=== PATIENT | male | born 1945 | race Caucasian/White ===

== ENCOUNTER → 2017-10-22 20:34 | Outpatient (CLI) | payer MEDICARE, OTHER, SELFPAY | PROVIDERS: Family Provider Family Medicine; PCP Family Medicine; Visit Provider Family Medicine | DX: G47.10 Hypersomnia, unspecified (principal); I10 Essential (primary) hypertension | CPT/HCPCS: 95810 ==

== ENCOUNTER → 2017-11-01 20:00 | Outpatient (CLI) | payer MEDICARE, OTHER, SELFPAY | PROVIDERS: Family Provider Family Medicine; PCP Family Medicine; Visit Provider Family Medicine | DX: G47.33 Obstructive sleep apnea (adult) (pediatric) (principal) | CPT/HCPCS: 95811 ==

== ENCOUNTER → 2018-04-14 09:47 | Outpatient (CLI) | payer MEDICARE, OTHER, SELFPAY ==
--- NOTE | 2018-04-14 09:48 | ECHOD_ITS ---
Reason For Study: NSTEMI, CAD, Valve eval. Procedure This was a 2D Doppler, Color Flow transthoracic echocardiogram. Exam performed in department. Left Ventricle Normal size and thickness. The estimated ejection fraction is 65 %. Normal diastology for age. No regional wall motion abnormalities noted. Right Ventricle Normal size and thickness. Normal systolic function. Atria Normal left atrium. Normal right atrium. Normal atrial septum. Mitral Valve The mitral valve is structurally normal. No prolapse or stenosis seen. Tricuspid Valve Normal tricuspid valve. Trivial tricuspid valve insufficiency. Right ventricular systolic pressure estimated to be 15 mmHg. Aortic Valve Trisinus/trileaflet aortic valve. Normal aortic valve. Pulmonic Valve Normal pulmonic valve. Great Vessels Normal aortic root. Normal arch. Normal inferior vena cava. Inferior vena cava collapse with sniff. Pericardium/Pleural No pericardial effusion. MMode/2D Measurements & Calculations LVIDd: 4.8 cm IVSd: 0.95 cm Ao root diam: 3.9 cm LVIDs: 3.3 cm LVPWd: 1.2 cm LA dimension: 3.9 cm RVDd: 2.8 cm FS: 30.5 % LAV(MOD-bp): 56.9 ml LA A4 area: 19.3 cm2 RA A4 area: 15.2 cm2 LAV(MOD-bp) Indexed: 27.9 ml/m2 LAV(MOD-sp2): 56.4 ml LAV(MOD-sp4): 55.2 ml Doppler Measurements & Calculations MV E max john: 64.0 cm/sec Lat Peak E' John: 8.7 cm/sec Med Peak E' John: 7.4 cm/sec MV A max john: 79.0 cm/sec E/E' lat: 7.3 E/E' med: 8.6 MV E/A: 0.81 Ao V2 max: 143.3 cm/sec LV V1 max: 92.3 cm/sec PA V2 max: 106.9 cm/sec Ao max P.2 mmHg LV V1 max P.4 mmHg TR max john: 155.7 cm/sec TR max P.7 mmHg Interpretation Summary The estimated ejection fraction is 65 %. Trivial tricuspid valve insufficiency. Right ventricular systolic pressure estimated to be 15 mmHg. Compared to echo report dated 04/19/2017, LV function has improved from 55% to 65%. Ordering Physician: John Umaña Referring Physician: Raj Chow Performed By: Ruth Kay RDCS, RVT
== END ==
PROVIDERS: Family Provider Family Medicine; PCP Family Medicine; Visit Provider Internal Medicine Cardiovascular Disease
DX: I21.4 Non-ST elevation (NSTEMI) myocardial infarction (principal)
CPT/HCPCS: 93306

== ENCOUNTER → 2018-05-27 12:49 | Outpatient (CLI) | payer MEDICARE, OTHER, SELFPAY ==
--- NOTE | 2018-05-27 12:52 | RAD_ITS ---
STUDY: X-RAY - LUMBAR SPINE REASON FOR EXAM: Male, 72 years old. Low back pain, right leg pain x3-4 days TECHNIQUE: 5 view(s) of the lumbar spine were obtained. COMPARISON: None FINDINGS: Normal lumbar lordosis. There is no substantial scoliosis. There is a grade 1 anterolisthesis of L5 relative to S1 with a bilateral L5 spondylolysis. There is multilevel endplate spondylosis of the lumbar vertebrae. There is narrowing of the T12-L1 and L5-S1 disc spaces. The soft tissue structures are unremarkable. RAD/L/S Spine Min 4 Views IMPRESSION: Grade 1 anterolisthesis of L5 relative to S1 with bilateral L5 spondylolysis. Multilevel endplate spondylosis of the lumbar vertebrae. Narrowing of the T12-L1 and L5-S1 disc spaces. Electronically Signed: Dat Khan MD at 17:50 EDT , Service support ,
== END ==
PROVIDERS: Family Provider Family Medicine; PCP Family Medicine; Visit Provider Family Medicine
DX: M47.897 Other spondylosis, lumbosacral region (principal); M48.07 Spinal stenosis, lumbosacral region
CPT/HCPCS: 72110

== ENCOUNTER → 2018-05-28 08:11 | Outpatient (CLI) | payer MEDICARE, OTHER, SELFPAY | PROVIDERS: Family Provider Family Medicine; PCP Family Medicine; Visit Provider Family Medicine | DX: E11.9 Type 2 diabetes mellitus without complications (principal); E03.9 Hypothyroidism, unspecified; Z12.5 Encounter for screening for malignant neoplasm of prostate; I10 Essential (primary) hypertension; N40.1 Benign prostatic hyperplasia with lower urinary tract symptoms; N13.8 Other obstructive and reflux uropathy; M25.50 Pain in unspecified joint ==

== ENCOUNTER → 2018-06-10 08:14 | Outpatient (CLI) | payer MEDICARE, OTHER, SELFPAY ==
[2018-06-10 11:50] LABS: Absolute Neutrophil Count 2.8 X10^3/uL (2.0-7.7); Basophil# 0.04 X10^3/uL; Basophil% 0.9 % (0-1); Eosinophils% 4.3 % (0-5); Hematocrit 44.8 % (40-54); Hemoglobin 14.2 g/dl (13.0-16.5); Lymphocyte % 25.8 % (19-41); Mean Corp Hgb Conc 31.7 g/gl (32-36); Mean Corpuscular Hgb 28.6 pg (27.0-32.0); Mean Corpuscular Volume 90.3 fL (80-94); Mean Platelet Vol. 11.1 fl (6.2-12.0); Monocyte# 0.36 X10^3/uL; Monocyte% 7.7 % (0-10); Neutrophil # 2.83 X10^3/uL (2.7-7.7); Neutrophil % 60.9 % (47-70); Platelet Count 178 K/mm3 (150-450); RBC Distribution Width CV 14.6 % (11.6-14.6); RBC Distribution Width SD 47.8 fl (35.1-43.9); Red Blood Count 4.96 M/mm3 (4.6-6.2); White Blood Count 4.7 K/mm3 (4.4-11.0)
[2018-06-10 11:55] LABS: POSITIVE COUNT NO; POSITIVE DIFFERENTIAL NO; POSITIVE MORPHOLOGY NO
[2018-06-10 12:03] LABS: Microalbumin,Random Urine 25.3 mg/L (NO RANGE EST.); Microalbumin:Creatinine Ratio 15.6 mg/g CRE (<30 mg/g CRE)
[2018-06-10 12:04] LABS: Erythrocyte Sedimentation Rate 7 mm/hr (0-20)
[2018-06-10 12:13] LABS: Hemoglobin A1c 6.7 % (4.2-6.3)
[2018-06-10 12:17] LABS: ALB/GLOB Ratio 1.1 RATIO (0.9-2.4); AST(SGOT) 16 U/L (15-37); Alanine Aminotransfer ALT/SGPT 24 U/L (16-61); Albumin, Serum 3.9 g/dL (3.2-5.0); Alkaline Phosphatase 53 U/L (45-117); BUN 19 mg/dL (7-18); BUN/Creat Ratio 15.7 RATIO (10-20); Calcium,Total 8.8 mg/dL (8.5-10.1); Cholesterol 131 mg/dL (200); Creatinine, Serum 1.21 mg/dL (0.70-1.30); EST Glomerular Filtration Rate 63 mL/min (>60); Est Glom Filt Rate - Afr Amer 76 mL/min (>60); Globulin 3.4 g/dL (2.2-4.2); Glucose 90 mg/dL (74-106); Protein, Total 7.3 g/dL (6.4-8.2); Triglycerides 89 mg/dL
[2018-06-10 12:18] LABS: Anion Gap 7 (5-15); CRP < 2.90 mg/L (0.0-3.0); Chloride 105 mmol/L (98-107); High Density Lipoprotein 65 mg/dL; PSA,Total - Annual Screen 3.14 ng/mL (0.00-4.00); Potassium 4.1 mmol/L (3.5-5.1); Rheumatoid Factor < 10.0 IU/mL (<15); Sodium Level 141 mmol/L (136-145); Thyroid Stim Hormone (TSH) 2.18 uIU/mL (0.358-3.74); Very Low Density Lipoprotein 18 mg/dL (5-40)
[2018-06-13 08:17] LABS: CCP IgG Antibodies 6 units (0-19)
== END ==
PROVIDERS: Family Provider Family Medicine; PCP Family Medicine; Visit Provider Family Medicine
DX: E11.9 Type 2 diabetes mellitus without complications (principal); E03.9 Hypothyroidism, unspecified; Z12.5 Encounter for screening for malignant neoplasm of prostate; I10 Essential (primary) hypertension; N40.1 Benign prostatic hyperplasia with lower urinary tract symptoms; N13.8 Other obstructive and reflux uropathy
CPT/HCPCS: 36415; 80053; 80061; 82043; 82570; 83036; 84153; 84443; 85025; 85652; 86140; 86200; 86431; G0103

== ENCOUNTER → 2018-07-22 10:00 | Outpatient (CLI) | payer MEDICARE, OTHER, SELFPAY ==
--- NOTE | 2018-07-22 10:06 | RAD_ITS ---
STUDY: X-RAY - PELVIS REASON FOR EXAM: Male, 72 years old. Osteoarthritis of the hip. Right hip more painful than the left. TECHNIQUE: One view of the pelvis was obtained. COMPARISON: None. FINDINGS: There is a non-specific bowel gas pattern. Probable phlebolith left hemipelvis. Normal bilateral iliac wings, sacroiliac joints and visualized sacrum. Normal visualized bilateral superior and inferior pubic rami. Normal pubic symphysis. Normal ischial tuberosities. Small osteophyte right femoral neck. Normal right acetabulum. Normal right hip joint. Normal visualized left femoral head. Normal left acetabulum. Mild left superior joint space narrowing. RAD/Pelvis 1 or 2 Views IMPRESSION: Mild degenerative changes of both hips. Electronically Signed: Houston Valle MD at 6:02 EST , Service support ,
[2018-07-22 12:17] LABS: Absolute Lymphocyte Count 0.69 X10^3/ul (0.83-4.51); Absolute Neutrophil Count 3.1 X10^3/uL (2.0-7.7); Basophil# 0.02 X10^3/uL; Basophil% 0.5 % (0-1); Eosinophils% 2.3 % (0-5); Hematocrit 42.7 % (40-54); Hemoglobin 13.5 g/dl (13.0-16.5); Lymphocyte # 0.69 X10^3/ul (4.0); Lymphocyte % 15.7 % (19-41); Mean Corp Hgb Conc 31.6 g/gl (32-36); Mean Corpuscular Hgb 28.8 pg (27.0-32.0); Mean Corpuscular Volume 91.2 fL (80-94); Mean Platelet Vol. 10.8 fl (6.2-12.0); Monocyte# 0.44 X10^3/uL; Neutrophil # 3.14 X10^3/uL (2.7-7.7); Neutrophil % 71.3 % (47-70); POSITIVE COUNT NO; POSITIVE DIFFERENTIAL NO; POSITIVE MORPHOLOGY NO; Platelet Count 186 K/mm3 (150-450); RBC Distribution Width CV 14.5 % (11.6-14.6); RBC Distribution Width SD 48.2 fl (35.1-43.9); Red Blood Count 4.68 M/mm3 (4.6-6.2); White Blood Count 4.4 K/mm3 (4.4-11.0)
[2018-07-22 12:40] LABS: ALB/GLOB Ratio 1.1 RATIO (0.9-2.4); AST(SGOT) 15 U/L (15-37); Alanine Aminotransfer ALT/SGPT 21 U/L (16-61); Alkaline Phosphatase 60 U/L (45-117); Anion Gap 7 (5-15); BUN 19 mg/dL (7-18); BUN/Creat Ratio 17.6 RATIO (10-20); Calcium,Total 8.6 mg/dL (8.5-10.1); Chloride 105 mmol/L (98-107); Creatinine, Serum 1.08 mg/dL (0.70-1.30); EST Glomerular Filtration Rate 72 mL/min (>60); Est Glom Filt Rate - Afr Amer 87 mL/min (>60); Globulin 3.5 g/dL (2.2-4.2); Glucose 112 mg/dL (74-106); Protein, Total 7.5 g/dL (6.4-8.2); Sodium Level 139 mmol/L (136-145)
[2018-07-29 09:38] LABS: CCP IgG Antibodies 5 units (0-19); HLA B27 Negative (.)
== END ==
PROVIDERS: Family Provider Family Medicine; PCP Family Medicine; Referring Provider Internal Medicine Rheumatology; Visit Provider Internal Medicine Rheumatology
DX: M16.0 Bilateral primary osteoarthritis of hip (principal); M47.897 Other spondylosis, lumbosacral region
CPT/HCPCS: 36415; 72170; 80053; 81374; 85025; 86200

== ENCOUNTER 2019-03-13 12:36 | Emergency (ER) | payer MEDICARE, OTHER, SELFPAY ==
[2018-10-15 11:11] VITALS: BMI 27.8
[2019-03-13 12:37] VITALS: BP 130/84; PULSE 88; RESP 15; TEMP 36.7; O2SAT 96; BMI 28.2
--- NOTE | 2019-03-13 12:57 | ED.DCSUM_ITS ---
- ER Visit Summary Date of Service: 03/13/19 Chief Complaint: Dark urine History of Present Illness: The patient is a 73 M presents to the emergency department with intermittent dark urine. Patient states yesterday, he urinated 3 times in his urine was tea colored. He states that this morning, it seemed to have improved. He denies any pain. He denies any fevers or chills. The patient is on Brilinta for history of coronary vascular disease. He is also on Flomax. He denies any history of bladder cancer or other malignancy. He is otherwise been in his normal state of health. Physical Examination: Vital signs reviewed General: Well-nourished, well-developed Head: Normocephalic, atraumatic Eyes: Pupils equal and reactive, extraocular muscles intact Neck, supple, no lymphadenopathy Heart: Regular rate and rhythm Respiratory: No distress, clear bilaterally Abdomen: Soft, nontender, nondistended, no peritoneal signs Back: Nontender Extremities: Nontender, no edema, no cords Skin: Normal color no rash Neuro: Alert and oriented, no focal or lateralizing deficits Test Results: [] Emergency Department Course and Treatment: Urine was obtained. There was some red blood cells and bacteria. I do suspect this may be a hemorrhagic cystitis. Culture was added. The patient will be treated with antibiotics. Will begin outpatient urology referral as he may end up needing cystoscopy. He is not ill-appearing. I do feel it is safe for outpatient therapy. He has no evidence of urinary obstruction. He is comfortable with this plan of care. Treatment Plan: [] Disposition: Discharge Impression: 1. Hemorrhagic cystitis This note was generated with [employer] dictation software. It may contain incorrect words, spelling, and punctuation that were not noted in review of the chart prior to signing ED Disposition - Plan for ED Patient: Disposition: Home or Assisted Living Instructions: Bladder Infection, Male (Adult) Prescriptions: Ciprofloxacin [Cipro] 500 mg PO BID #14 tab Prescription Printed Referrals: Joseph Mora MD [STAFF PHYSICIAN] -
[2019-03-13 13:19] LABS: Mucous, Urine 0 SEEN /hpf (<or=2+)
[2019-03-13 13:22] LABS: Color, Urine Yellow (Yellow); Glucose, Dipstick Normal (Normal); Ketone-Dipstick Negative (Negative); Leukocyte Esterase-Dipstick 25 /ul (Negative); Nitrite-Dipstick Negative (Negative); Occult Blood-Urine 250 /ul (Negative); Protein-Dipstick 30 mg/dl (Negative); Specific Gravity, Urine 1.015 (1.002-1.030); Urine Bilirubin Dipstick Negative (Negative); Urine Clarity Sl. Cloudy (Clear); Urine Urobilinogen Normal (Normal)
[2019-03-13 13:30] LABS: Bacteria 1+ /hpf (None Seen); Red Blood Cells-Urine 25-50 SEEN /hpf (0-5); Squamous Epithelial Cells - UA 0-5 SEEN /hpf (0-5); White Blood Cells 0-5 SEEN /hpf (0-5)
[2019-03-13] MEDS: Ciprofloxacin 500 MG Tablet PO (13:51)
== END 2019-03-13 13:54 | disposition home or self-care (01) ==
LOC: ED 12:59
PROVIDERS: Emergency Provider Emergency Medicine; Family Provider Family Medicine; PCP Family Medicine
DX: N30.91 Cystitis, unspecified with hematuria (principal); I25.10 Atherosclerotic heart disease of native coronary artery without angina pectoris; E11.9 Type 2 diabetes mellitus without complications; E07.9 Disorder of thyroid, unspecified; Z79.84 Long term (current) use of oral hypoglycemic drugs; Z79.82 Long term (current) use of aspirin; Z79.899 Other long term (current) drug therapy
CPT/HCPCS: 81001; 87086; 99283

== ENCOUNTER 2019-03-22 17:49 | Emergency (ER) | payer MEDICARE, OTHER, SELFPAY ==
[2019-03-22 17:50] VITALS: BP 129/73; PULSE 91; RESP 16; TEMP 36.9; O2SAT 93; BMI 28.0
--- NOTE | 2019-03-22 18:44 | CT_ITS ---
STUDY: CT ABDOMEN AND PELVIS WITHOUT CONTRAST REASON FOR EXAM: Male, 73 years old. Bladder infection RADIATION DOSAGE (If Supplied By Facility): CTDIvol = ( 13.67 ) mGy, DLP = ( 677.27 ) mGycm TECHNIQUE: Transaxial images were obtained from the dome of the diaphragm to the symphysis pubis without oral contrast, and without intravenous contrast. Sagittal and coronal images were reconstructed. Individualized dose optimization techniques were used for this CT. COMPARISON: None. FINDINGS: This is a limited non-IV and nonoral contrast study. The visualized lung bases are unremarkable. The visualized portions of the heart are within normal limits. Normal liver. Normal gallbladder and extrahepatic biliary system. Normal spleen. Normal pancreas. Normal bilateral adrenal glands. There is moderate left hydronephrosis and left hydroureter. There is a 4 mm calculus within the mid left ureter at approximately L4 level. There is a 3 mm right renal calculus. Normal visualized stomach. There is some mild distended left upper quadrant bowel loops with some fecalization. There is no definite transition point. There are nondistended distal small bowel loops. There are scattered colonic diverticula. Moderate colonic fecal load. There is CT evidence for acute diverticulitis Appendix is upper limits of normal size maximum diameter 6 mm. There are no adjacent inflammatory changes. Normal abdominal aorta. Normal inferior vena cava. Normal retroperitoneum. The bladder is decompressed.. There is significant prostate enlargement. Normal abdominal wall. There is bilateral spondylolysis at L5 with grade 1, 7 mm posterior listhesis sacrum on L5. There is mild posterior bulging annulus with significant bilateral foraminal stenosis. Multilevel Schmorl's nodes and lumbar spine. CT/Abdomen/Pelvis without Cont IMPRESSION: Limited non-IV nonoral contrast study moderate left hydronephrosis and left hydroureter. There is an obstructing or partially obstructing 4 mm calculus within the mid left ureter at approximately the L4 level. Right renal nephrolithiasis Mild distended small bowel loops likely ileus Moderate colonic fecal load, scattered colonic diverticulosis, no diverticulitis Appendix is at the upper limits of normal size at 6 mm, there are no adjacent inflammatory changes to suggest appendicitis Significant prostate enlargement, prosthetic hypertrophy, prostate malignancy cannot be excluded and should be correlated with PSA level and prostate ultrasound Decompressed bladder Bilateral spondylolysis, spondylosis changes at L5-S1 grade 1 posterior listhesis L5 on S1 Electronically Signed: Odilon Garvey, at 19:52 EDT Tel , Service support ,
[2019-03-22 19:50] LABS: Bacteria 0 SEEN /hpf (None Seen); Mucous, Urine 0 SEEN /hpf (<or=2+); Squamous Epithelial Cells - UA 0 SEEN /hpf (0-5); White Blood Cells 0 SEEN /hpf (0-5)
[2019-03-22 19:53] LABS: Color, Urine Yellow (Yellow); Glucose, Dipstick Normal (Normal); Ketone-Dipstick 5 mg/dl (Negative); Leukocyte Esterase-Dipstick 25 /ul (Negative); Nitrite-Dipstick Negative (Negative); Occult Blood-Urine 250 /ul (Negative); Protein-Dipstick 100 mg/dl (Negative); Specific Gravity, Urine 1.025 (1.002-1.030); Urine Clarity Cloudy (Clear); Urine Urobilinogen 1 mg/dl (Normal)
[2019-03-22 19:56] LABS: Urine Bilirubin Dipstick 1 mg/dL (Negative)
[2019-03-22 19:59] LABS: Calcium Oxalate Crystals Ur 1+ /hpf (<or=2+)
[2019-03-22 20:04] LABS: Red Blood Cells-Urine > 100 SEEN /hpf (0-5)
[2019-03-22 20:08] LABS: Amorphous Sediment 1+
--- NOTE | 2019-03-22 20:25 | ED.VISSUMM ---
- ER Visit Summary Date of Service: 03/22/19 Chief Complaint: [Pelvic pain] History of Present Illness: The patient is a 73 M [as the emergency department with lower pelvic pain that started earlier today. Patient gives me a history of recently be seen in the emergency department 9 days ago and diagnosed with a urinary tract infection at that time he had some blood in his urine urinary frequency. Patient states that he was started on ciprofloxacin and things seem to clear up and was doing relatively well until today. Patient today feels like he has to urinate frequently but is only getting small amounts of urine out at a time. Describes some pressure in his lower pelvic region that he rates as a 5 out of 10. Denies any fevers. Patient has history of coronary artery disease, diabetes, hypertension, high cholesterol, BPH, and history of prior IN. She is scheduled to see urologist on March 30.] Physical Examination: [HEENT-PERRLA, EOMI. Cranial nerves II through XII grossly intact. TMs clear. Mucous membranes moist. No adenopathy. Cardiovascular-regular rate and rhythm without murmur or ectopy Lungs-clear to auscultation, chest wall stable without crepitus or subcu emphysema Abdomen-normoactive bowel sounds, soft area patient has mild diffuse suprapubic test and palpation. There is no rebound, rigidity, cranial signs. She has mild CVA tenderness on the left. Extremities-intact ?4, normal range of motion, normal pulses, atraumatic] Test Results: [Scan performed only showed about 40 cc of urine. Urinalysis showed greater than 100 RBCs but no signs of infection. CT scan of the abdomen and pelvis without contrast showed a 4 mm calcification in the left ureter about the L4 level with moderate hydro-ureter and hydro-nephrosis.] Emergency Department Course and Treatment: [Patient did not waiting for pain in the emergency department. Case was discussed with urology asked that patient follow-up with his office by calling tomorrow for an earlier appointment.] Treatment Plan: [He will be given a prescription for naproxen and [place] for pain. Patient will be given urine strainers.] I ordered a BMP as patient has not had labs since July 2018. Disposition: [Discharged home in stable condition.] Impression: [Kidney stone with colic] This note was generated with [employer] software. It may contain incorrect words, spelling, and punctuation that were not noted in review of the chart prior to signing ED Disposition - Plan for ED Patient: Referrals: Raj Chow DO [Primary Care Provider] -
--- NOTE | 2019-03-22 20:29 | ED.DEP ---
ED Disposition - Plan for ED Patient: Instructions: KIDNEY STONE w/ Colic Prescriptions: Naproxen [Naprosyn] 500 mg PO BID PRN #20 tab Prescription Printed Hydrocodone Bitart/Apap 5-325 [[place] 5MG-325MG] 1 tab PO Q4H PRN PRN 2 Days #15 tab PRN Reason: Pain Prescription Printed Referrals: Raj Chow DO [Primary Care Provider] -
[2019-03-22 21:07] LABS: Anion Gap 5 (5-15); BUN 25 mg/dL (7-18); BUN/Creat Ratio 18.7 RATIO (10-20); Calcium,Total 8.7 mg/dL (8.5-10.1); Chloride 105 mmol/L (98-107); Creatinine, Serum 1.34 mg/dL (0.70-1.30); EST Glomerular Filtration Rate 56 mL/min (>60); Est Glom Filt Rate - Afr Amer 67 mL/min (>60); Estimated Creatinine Clearance 49.83 ml/min; Glucose 95 mg/dL (74-106); Potassium 3.8 mmol/L (3.5-5.1); Sodium Level 136 mmol/L (136-145)
[2019-03-22] MEDS: HYDROcodone Bitartrate/Apap 5/325 Tablet PO (21:07)
== END 2019-03-22 21:13 | disposition home or self-care (01) ==
LOC: ED 19:11
PROVIDERS: Emergency Provider Emergency Medicine; Family Provider Family Medicine; PCP Family Medicine
DX: N13.2 Hydronephrosis with renal and ureteral calculous obstruction (principal); N34.2 Other urethritis; I25.10 Atherosclerotic heart disease of native coronary artery without angina pectoris; I25.2 Old myocardial infarction; I10 Essential (primary) hypertension; E11.9 Type 2 diabetes mellitus without complications; E78.00 Pure hypercholesterolemia, unspecified; N40.0 Benign prostatic hyperplasia without lower urinary tract symptoms; Z79.82 Long term (current) use of aspirin; Z79.84 Long term (current) use of oral hypoglycemic drugs; Z79.899 Other long term (current) drug therapy
CPT/HCPCS: 74176; 80048; 81001; 99283

== ENCOUNTER → 2019-03-30 | Outpatient (CLI) | payer MEDICARE, OTHER, SELFPAY ==
[2019-03-22 17:50] VITALS: BMI 28.0
--- NOTE | 2019-03-30 12:20 | RAD_ITS ---
STUDY: X-RAY - ABDOMEN/PELVIS REASON FOR EXAM: Male, 73 years old. History of recent kidney stone TECHNIQUE: Two AP supine views of the abdomen and pelvis. COMPARISON: 03/[address] scan abdomen and pelvis, July 22, 2018 FINDINGS: Normal visualized lung bases. There is a moderate amount of colonic fecal material. There is no demonstrated free abdominal air. The liver spleen and kidneys are at least partially obscured. There is a stable phlebolith in the left side of the pelvis. The stone that was seen within the left ureter is not visualized on this study allowing for the overlying bowel gas. There is degenerative change of the lumbar spine and both hip joints. RAD/Abdomen Single View IMPRESSION: The stone that was seen in the left ureter on prior study measuring 3.2 mm is not visualized on this study recommend correlation with renal colic. This may have passed however there could be nonvisualization due to overlying bowel gas. Stable phlebolith within the left side of the pelvis. Electronically Signed: Leticia Gomez MD at 22:47 EDT Tel , Service support ,
== END | disposition home or self-care (01) ==
LOC: RAD 12:11
PROVIDERS: Family Provider Family Medicine; PCP Family Medicine; Referring Provider Urology; Visit Provider Urology
DX: N20.1 Calculus of ureter (principal)
CPT/HCPCS: 74018

== ENCOUNTER → 2019-05-26 09:24 | Outpatient (CLI) | payer MEDICARE, OTHER, SELFPAY ==
[2019-05-04 14:43] VITALS: BMI 27.4
--- NOTE | 2019-05-26 09:26 | STEWCON_ITS ---
Reason For Study: CAD/ASHD Stress Results Protocol: Stress Echocardiogram Maximum Predicted HR: 148 bpm Target HR: 126 bpm % Maximum Predicted HR: 95 % DurationHeart Rate Stage (mm:ss) (bpm) BP Comment BASELINE 82 132/743 CC DILUTED DEFINITY USED ZAHRA PROTOCOL- STAGE 1 3:00 100 130/70NO SX ZAHRA PROTOCOL- STAGE 2 3:00 121 154/74NO SX ZAHRA PROTOCOL- STAGE 3 1:00 141 / FATIGUE, NO CP RECOVERY 94 120/70 Stress Duration: 7:00 mm:ss Maximum Stress HR: 141 bpm Baseline Echocardiogram Findings The estimated ejection fraction is 65 %. Stress Echo Wall motion Data Resting WM Intermediate WM Stress WM Resting Wall Motion Wall Motion Stress No regional wall motion No regional wall motion abnormalities noted. abnormalities noted. EKG Data The baseline ECG displays normal sinus rhythm. The patient exercised according to the regular Zahra protocol for a total duration of 7:00. The maximum heart rate attained was 141 beats per minute. This was 95% of maximum predicted heart rate. The patient exercised into stage 3 of the Zahra protocol. No clinical angina was noted. No arrhythmias noted. Interpretation Summary The estimated ejection fraction is 65 %. Normal, adequate, treadmill echocardiogram. Negative for ischemia by EKG and echocardiographic criteria. No anginal symptoms noted. No arrhythmias noted. Appropriate blood pressure response to exercise. Test terminated due to the attainment of target heart rate and fatigue. Average exercise capacity for age. Final LVEF is 75%. Decreased sensitivity due to poor echo windows requiring Definity agent. No complications. The study was technically difficult. Contrast injection was performed. Ordering Physician: John Umaña MD Referring Physician: John Umaña Performed By: Nneka Josue, RDCS, RVT
== END ==
PROVIDERS: Family Provider Family Medicine; PCP Family Medicine; Referring Provider Internal Medicine Cardiovascular Disease; Visit Provider Internal Medicine Cardiovascular Disease
DX: I25.10 Atherosclerotic heart disease of native coronary artery without angina pectoris (principal); E78.5 Hyperlipidemia, unspecified; Z95.5 Presence of coronary angioplasty implant and graft
CPT/HCPCS: 93017; 93350; Q9957; A4216; C8928

== ENCOUNTER → 2019-06-08 10:35 | Outpatient (CLI) | payer MEDICARE, OTHER, SELFPAY ==
[2019-05-04 14:43] VITALS: BMI 27.4
[2019-06-08 12:25] LABS: Absolute Neutrophil Count 3.4 X10^3/uL (2.0-7.7); Basophil# 0.04 X10^3/uL; Basophil% 0.9 % (0-1); Eosinophil# 0.16 X10^3/uL; Eosinophils% 3.5 % (0-5); Hematocrit 40.2 % (40-54); Hemoglobin 12.7 g/dL (13.0-16.5); Lymphocyte % 13.3 % (19-41); Mean Corp Hgb Conc 31.6 g/dL (32-36); Mean Corpuscular Hgb 28.5 pg (27.0-32.0); Mean Corpuscular Volume 90.3 fL (80-94); Mean Platelet Vol. 10.5 fl (6.2-12.0); Monocyte# 0.34 X10^3/uL; Monocyte% 7.5 % (0-10); NRBC Flagged by Analyzer 0 % (0-5); Neutrophil # 3.36 X10^3/uL (2.7-7.7); Neutrophil % 74.4 % (47-70); POSITIVE DIFFERENTIAL YES; Platelet Count 185 K/mm3 (150-450); RBC Distribution Width CV 14.1 % (11.6-14.6); RBC Distribution Width SD 46.7 fl (35.1-43.9); Red Blood Count 4.45 M/mm3 (4.6-6.2); White Blood Count 4.5 K/mm3 (4.4-11.0)
[2019-06-08 12:26] LABS: Differential Indicated SCAN CRITERIA MET
[2019-06-08 12:38] LABS: AST(SGOT) 12 U/L (15-37); Alanine Aminotransfer ALT/SGPT 22 U/L (16-61); Albumin, Serum 3.7 g/dL (3.2-5.0); Alkaline Phosphatase 86 U/L (45-117); Anion Gap 5 (5-15); BUN 29 mg/dL (7-18); BUN/Creat Ratio 20.4 RATIO (10-20); Calcium,Total 8.9 mg/dL (8.5-10.1); Chloride 106 mmol/L (98-107); Creatinine, Serum 1.42 mg/dL (0.70-1.30); EST Glomerular Filtration Rate 52 mL/min (>60); Est Glom Filt Rate - Afr Amer 63 mL/min (>60); Globulin 3.6 g/dL (2.2-4.2); Glucose 195 mg/dL (74-106); Protein, Total 7.3 g/dL (6.4-8.2); Sodium Level 139 mmol/L (136-145)
[2019-06-08 12:49] LABS: Platelet Estimate ADEQUATE (ADEQ); Red Cell Morphology NORM C+C NORMAL (NORM C&C)
== END ==
PROVIDERS: Family Provider Family Medicine; PCP Family Medicine; Referring Provider Internal Medicine Rheumatology; Visit Provider Internal Medicine Rheumatology
DX: M16.0 Bilateral primary osteoarthritis of hip (principal); M47.897 Other spondylosis, lumbosacral region; I10 Essential (primary) hypertension; E11.9 Type 2 diabetes mellitus without complications; I25.10 Atherosclerotic heart disease of native coronary artery without angina pectoris; E03.9 Hypothyroidism, unspecified; E78.5 Hyperlipidemia, unspecified; N40.1 Benign prostatic hyperplasia with lower urinary tract symptoms
CPT/HCPCS: 36415; 80053; 85025

== ENCOUNTER → 2019-06-16 07:19 | Outpatient (CLI) | payer MEDICARE, OTHER, SELFPAY ==
[2019-05-04 14:43] VITALS: BMI 27.4
[2019-06-16 08:31] LABS: AST(SGOT) 17 U/L (15-37); Alanine Aminotransfer ALT/SGPT 21 U/L (16-61); Albumin, Serum 3.7 g/dL (3.2-5.0); Alkaline Phosphatase 66 U/L (45-117); Bilirubin, Direct 0.15 mg/dL (0.00-0.30); Cholesterol 197 mg/dL (200); Globulin 3.4 g/dL (2.2-4.2); High Density Lipoprotein 64 mg/dL; Protein, Total 7.1 g/dL (6.4-8.2); Triglycerides 100 mg/dL; Very Low Density Lipoprotein 20 mg/dL (5-40)
== END ==
PROVIDERS: Family Provider Family Medicine; PCP Family Medicine; Referring Provider Nurse Practitioner Family; Visit Provider Nurse Practitioner Family
DX: E78.5 Hyperlipidemia, unspecified (principal); I25.10 Atherosclerotic heart disease of native coronary artery without angina pectoris
CPT/HCPCS: 36415; 80061; 80076

== ENCOUNTER → 2019-08-07 17:40 | Outpatient (CLI) | payer MEDICARE, OTHER, SELFPAY ==
[2019-05-04 14:43] VITALS: BMI 27.4
[2019-08-07 17:43] LABS: Pathologist Comment May follow
[2019-08-07 18:01] LABS: Synovial Fld Mononuclear WBC % 39.4 %; Synovial Fld Polynuclear WBC % 60.6 %
[2019-08-07 18:50] LABS: Lymph 15 %; Neutrophil 85 % (0-25)
[2019-08-07 18:51] LABS: AUTO B FLUID DILUENT BKGD CT WBC <0.1 RBC <0.01 (W<.1,R<.01); Appearance /Synovial Fluid Turbid (CLEAR); Color / Synovial Fluid Red (Pale Yellow); Source- Body Fluid SYNOVIAL; Viscosity / Synovial Fluid Sl. Viscous (HIGH)
[2019-08-07 18:53] LABS: Body Fluid QC Type(s) BF2Q,BF3Q; Source / Synovial Fluid RIGHT HIP
[2019-08-10 14:07] LABS: Pathologist Review Reviewed
== END ==
PROVIDERS: Family Provider Family Medicine; PCP Family Medicine; Referring Provider Internal Medicine Rheumatology; Visit Provider Internal Medicine Rheumatology
DX: M16.0 Bilateral primary osteoarthritis of hip (principal); M47.897 Other spondylosis, lumbosacral region; M25.551 Pain in right hip; I10 Essential (primary) hypertension; E11.9 Type 2 diabetes mellitus without complications; I25.10 Atherosclerotic heart disease of native coronary artery without angina pectoris
CPT/HCPCS: 87070; 87075; 87205; 89050; 89051; 89060

== ENCOUNTER → 2019-08-17 08:03 | Outpatient (CLI) | payer MEDICARE, OTHER, SELFPAY ==
[2018-10-15 11:11] VITALS: BMI 27.8
[2019-05-04 14:43] VITALS: BMI 27.4
[2019-08-17 12:36] LABS: ALB/GLOB Ratio 1.1 RATIO (0.9-2.4); AST(SGOT) 15 U/L (15-37); Absolute Lymphocyte Count 1.34 X10^3/uL (0.83-4.51); Absolute Neutrophil Count 3.4 X10^3/uL (2.0-7.7); Alanine Aminotransfer ALT/SGPT 22 U/L (16-61); Albumin, Serum 3.9 g/dL (3.2-5.0); Alkaline Phosphatase 64 U/L (45-117); Anion Gap 7 (5-15); BUN 21 mg/dL (7-18); BUN/Creat Ratio 15.7 RATIO (10-20); Basophil# 0.06 X10^3/uL; Basophil% 1.1 % (0-1); Calcium,Total 8.8 mg/dL (8.5-10.1); Chloride 105 mmol/L (98-107); Cholesterol 236 mg/dL (200); Creatinine, Serum 1.34 mg/dL (0.70-1.30); EST Glomerular Filtration Rate 56 mL/min (>60); Eosinophil# 0.12 X10^3/uL; Eosinophils% 2.2 % (0-5); Est Glom Filt Rate - Afr Amer 67 mL/min (>60); Globulin 3.5 g/dL (2.2-4.2); Glucose 95 mg/dL (74-106); Hematocrit 43.4 % (40-54); Hemoglobin 13.8 g/dL (13.0-16.5); High Density Lipoprotein 67 mg/dL; Lymphocyte # 1.34 X10^3/ul (4.0); Lymphocyte % 24.5 % (19-41); Mean Corp Hgb Conc 31.8 g/dL (32-36); Mean Corpuscular Hgb 28.9 pg (27.0-32.0); Mean Platelet Vol. 10.3 fl (6.2-12.0); Monocyte# 0.47 X10^3/uL; Monocyte% 8.6 % (0-10); NRBC Flagged by Analyzer 0 % (0-5); Neutrophil # 3.44 X10^3/uL (2.7-7.7); Neutrophil % 62.9 % (47-70); PSA,Total - Annual Screen 3.35 ng/mL (0.00-4.00); Platelet Count 210 K/mm3 (150-450); Protein, Total 7.4 g/dL (6.4-8.2); RBC Distribution Width CV 14.1 % (11.6-14.6); RBC Distribution Width SD 47.5 fl (35.1-43.9); Red Blood Count 4.77 M/mm3 (4.6-6.2); Sodium Level 139 mmol/L (136-145); T4 Free Direct 1.29 ng/dL (0.76-1.46); Thyroid Stim Hormone (TSH) 2.67 uIU/mL (0.358-3.74); Triglycerides 92 mg/dL; Very Low Density Lipoprotein 18 mg/dL (5-40); White Blood Count 5.5 K/mm3 (4.4-11.0)
[2019-08-17 12:37] LABS: Hemoglobin A1c 6.2 % (4.2-6.3)
[2019-08-17 12:54] LABS: Microalbumin,Random Urine 25.2 mg/L (NO RANGE EST.)
== END ==
LOC: LAB.FUTURE 08:04 → BFHLAB 08-20 11:30
PROVIDERS: Family Provider Family Medicine; PCP Family Medicine; Visit Provider Family Medicine
DX: E11.9 Type 2 diabetes mellitus without complications (principal); I25.10 Atherosclerotic heart disease of native coronary artery without angina pectoris; I10 Essential (primary) hypertension; E03.9 Hypothyroidism, unspecified; Z12.5 Encounter for screening for malignant neoplasm of prostate; Z51.81 Encounter for therapeutic drug level monitoring
CPT/HCPCS: 36415; 80053; 80061; 82043; 82570; 83036; 84153; 84439; 84443; 85025; G0103

== ENCOUNTER → 2019-11-13 08:00 | Outpatient (CLI) | payer MEDICARE, OTHER, SELFPAY ==
[2019-11-12 11:11] VITALS: BMI 27.1
[2019-11-13 08:52] LABS: AST(SGOT) 17 U/L (15-37); Alanine Aminotransfer ALT/SGPT 23 U/L (16-61); Albumin, Serum 3.8 g/dL (3.2-5.0); Alkaline Phosphatase 66 U/L (45-117); Bilirubin, Direct 0.12 mg/dL (0.00-0.30); Cholesterol 222 mg/dL (200); Globulin 3.7 g/dL (2.2-4.2); High Density Lipoprotein 63 mg/dL; Protein, Total 7.5 g/dL (6.4-8.2); Triglycerides 150 mg/dL; Very Low Density Lipoprotein 30 mg/dL (5-40)
== END ==
PROVIDERS: PCP Family Medicine; Referring Provider Internal Medicine Cardiovascular Disease; Visit Provider Internal Medicine Cardiovascular Disease
DX: E78.5 Hyperlipidemia, unspecified (principal); I25.10 Atherosclerotic heart disease of native coronary artery without angina pectoris
CPT/HCPCS: 36415; 80061; 80076

== ENCOUNTER → 2019-11-23 07:49 | Outpatient (CLI) | payer MEDICARE, OTHER, SELFPAY ==
[2019-11-12 11:11] VITALS: BMI 27.1
[2019-11-23 08:30] LABS: Absolute Lymphocyte Count 1.32 X10^3/uL (0.83-4.51); Absolute Neutrophil Count 4.2 X10^3/uL (2.0-7.7); Basophil# 0.06 X10^3/uL; Basophil% 0.9 % (0-1); Eosinophil# 0.31 X10^3/uL; Eosinophils% 4.8 % (0-5); Hematocrit 41.6 % (40-54); Hemoglobin 13.4 g/dL (13.0-16.5); Lymphocyte # 1.32 X10^3/ul (4.0); Lymphocyte % 20.4 % (19-41); Mean Corp Hgb Conc 32.2 g/dL (32-36); Mean Corpuscular Hgb 29.1 pg (27.0-32.0); Mean Corpuscular Volume 90.2 fL (80-94); Monocyte% 7.7 % (0-10); NRBC Flagged by Analyzer 0 % (0-5); Neutrophil # 4.24 X10^3/uL (2.7-7.7); Neutrophil % 65.6 % (47-70); Platelet Count 218 K/mm3 (150-450); RBC Distribution Width CV 13.9 % (11.6-14.6); RBC Distribution Width SD 45.9 fl (35.1-43.9); Red Blood Count 4.61 M/mm3 (4.6-6.2); White Blood Count 6.5 K/mm3 (4.4-11.0)
[2019-11-23 09:00] LABS: AST(SGOT) 20 U/L (15-37); Alanine Aminotransfer ALT/SGPT 23 U/L (16-61); Albumin, Serum 3.6 g/dL (3.2-5.0); Alkaline Phosphatase 61 U/L (45-117); Anion Gap 4 (5-15); BUN 23 mg/dL (7-18); BUN/Creat Ratio 16.1 RATIO (10-20); Calcium,Total 9.2 mg/dL (8.5-10.1); Chloride 108 mmol/L (98-107); Creatinine, Serum 1.43 mg/dL (0.70-1.30); EST Glomerular Filtration Rate 52 mL/min (>60); Est Glom Filt Rate - Afr Amer 62 mL/min (>60); Globulin 3.6 g/dL (2.2-4.2); Glucose 101 mg/dL (74-106); Potassium 4.3 mmol/L (3.5-5.1); Protein, Total 7.2 g/dL (6.4-8.2); Sodium Level 139 mmol/L (136-145)
== END ==
PROVIDERS: PCP Family Medicine; Referring Provider Internal Medicine Rheumatology; Visit Provider Internal Medicine Rheumatology
DX: M16.0 Bilateral primary osteoarthritis of hip (principal); M15.9 Polyosteoarthritis, unspecified; M47.897 Other spondylosis, lumbosacral region; M25.551 Pain in right hip; I10 Essential (primary) hypertension; E11.9 Type 2 diabetes mellitus without complications; I25.10 Atherosclerotic heart disease of native coronary artery without angina pectoris; E03.9 Hypothyroidism, unspecified; E78.5 Hyperlipidemia, unspecified; N40.1 Benign prostatic hyperplasia with lower urinary tract symptoms
CPT/HCPCS: 36415; 80053; 85025

== ENCOUNTER → 2019-11-26 12:42 | Outpatient (CLI) | payer MEDICARE, OTHER, SELFPAY ==
[2019-11-12 11:11] VITALS: BMI 27.1
--- NOTE | 2019-11-26 12:44 | ECHOCS_ITS ---
Reason For Study: NSTEMI Procedure This was a 2D Doppler, Color Flow transthoracic echocardiogram. The study was technically difficult. Contrast injection was performed. Exam performed in department. Left Ventricle Normal size and thickness. The estimated ejection fraction is 60 %. Stage 1 diastolic dysfunction. No regional wall motion abnormalities noted. Right Ventricle Mildly dilated right ventricle. Normal systolic function. Atria Normal left atrium. Normal right atrium. Normal atrial septum. Mitral Valve The mitral valve is structurally normal. No prolapse or stenosis seen. Tricuspid Valve Normal tricuspid valve. Unable to estimate RV systolic pressure due to insufficient tricuspid regurgitant envelope. Aortic Valve Trisinus/trileaflet aortic valve. Normal aortic valve. Pulmonic Valve The pulmonic valve is not well visualized. Great Vessels Normal aortic root. Normal arch. Normal inferior vena cava. Inferior vena cava collapse with sniff. Pericardium/Pleural No pericardial effusion. Medication 22 gauge I.V. with prn adaptor inserted into right arm. Diluted definity 4.0ml given slow IV push to enhance endocardial definition. MMode/2D Measurements & Calculations LVIDd: 4.5 cm IVSd: 0.99 cm Ao root diam: 3.9 cm LVIDs: 3.0 cm LVPWd: 1.0 cm RVDd: 3.9 cm FS: 34.3 % LAV(MOD-bp): 44.7 ml LVAd ap4: 31.8 cm2 SV(MOD-sp4): 47.7 ml LAV(MOD-bp) Indexed: 22.1 ml/m2 EDV(MOD-sp4): 102.8 ml LAV(MOD-sp2): 50.0 ml EDV(sp4-el): 104.7 ml LAV(MOD-sp4): 39.1 ml LVAs ap4: 21.8 cm2 ESV(MOD-sp4): 55.0 ml ESV(sp4-el): 58.1 ml EF(MOD-sp4): 46.5 % EF(sp4-el): 44.5 % SV(sp4-el): 46.6 ml LA A4 area: 15.7 cm2 LA dimension(2D): 4.0 cm RA A4 area: 12.3 cm2 Time Measurements MV dec time: 0.30 sec Doppler Measurements & Calculations MV E max john: 52.2 cm/sec Lat Peak E' John: 6.9 cm/sec Med Peak E' John: 5.4 cm/sec MV A max john: 87.3 cm/sec E/E' lat: 7.6 E/E' med: 9.7 MV E/A: 0.60 Ao V2 max: 141.4 cm/sec LV V1 max: 83.6 cm/sec PA V2 max: 90.3 cm/sec Ao max P.0 mmHg LV V1 max P.8 mmHg Interpretation Summary The estimated ejection fraction is 60 %. Stage 1 diastolic dysfunction. Mildly dilated right ventricle. Unable to estimate RV systolic pressure due to insufficient tricuspid regurgitant envelope. Compared to echo report dated 04/14/2018, no appreciable changes noted. The study was technically difficult. Contrast injection was performed. Ordering Physician: John Umaña Referring Physician: DELVIS MALDONADO Performed By: Ana Galindo RDCS
== END ==
PROVIDERS: PCP Family Medicine; Referring Provider Internal Medicine Cardiovascular Disease; Visit Provider Internal Medicine Cardiovascular Disease
DX: I21.4 Non-ST elevation (NSTEMI) myocardial infarction (principal)
CPT/HCPCS: 93306; Q9957; A4216; C8929

== ENCOUNTER → 2019-12-23 13:05 | Outpatient (CLI) | payer MEDICARE, OTHER, SELFPAY ==
[2019-11-12 11:11] VITALS: BMI 27.1
[2019-12-23 13:09] LABS: Bacteria 0 SEEN /hpf (None Seen); Mucous, Urine 0 SEEN /hpf (<or=2+); Squamous Epithelial Cells - UA 0 SEEN /hpf (0-5)
[2019-12-23 15:26] LABS: Color, Urine Red (Yellow); Glucose, Dipstick Normal (Normal); Ketone-Dipstick Negative (Negative); Leukocyte Esterase-Dipstick Negative /ul (Negative); Nitrite-Dipstick Negative (Negative); Occult Blood-Urine 250 /ul (Negative); Protein-Dipstick 100 mg/dl (Negative); Urine Bilirubin Dipstick Negative (Negative); Urine Clarity Turbid (Clear); Urine Urobilinogen Normal (Normal)
[2019-12-23 15:28] LABS: Absolute Lymphocyte Count 0.93 X10^3/uL (0.83-4.51); Absolute Neutrophil Count 4.4 X10^3/uL (2.0-7.7); Basophil# 0.05 X10^3/uL; Basophil% 0.8 % (0-1); Eosinophils% 1.7 % (0-5); Lymphocyte # 0.93 X10^3/ul (4.0); Lymphocyte % 15.4 % (19-41); Mean Corp Hgb Conc 32.6 g/dL (32-36); Mean Corpuscular Hgb 29.1 pg (27.0-32.0); Mean Corpuscular Volume 89.4 fL (80-94); Mean Platelet Vol. 10.5 fl (6.2-12.0); Monocyte# 0.51 X10^3/uL; Monocyte% 8.5 % (0-10); NRBC Flagged by Analyzer 0 % (0-5); Neutrophil # 4.42 X10^3/uL (2.7-7.7); Neutrophil % 73.3 % (47-70); Platelet Count 247 K/mm3 (150-450); RBC Distribution Width CV 13.8 % (11.6-14.6); RBC Distribution Width SD 45.2 fl (35.1-43.9); Red Blood Count 4.81 M/mm3 (4.6-6.2)
[2019-12-23 15:35] LABS: Red Blood Cells-Urine > 100 SEEN /hpf (0-5); White Blood Cells 0-5 SEEN /hpf (0-5)
[2019-12-23 15:38] LABS: Anion Gap 4 (5-15); BUN 31 mg/dL (7-18); BUN/Creat Ratio 19.6 RATIO (10-20); Calcium,Total 9.8 mg/dL (8.5-10.1); Chloride 108 mmol/L (98-107); Creatinine, Serum 1.58 mg/dL (0.70-1.30); EST Glomerular Filtration Rate 46 mL/min (>60); Est Glom Filt Rate - Afr Amer 56 mL/min (>60); Glucose 105 mg/dL (74-106); Potassium 4.2 mmol/L (3.5-5.1); Sodium Level 141 mmol/L (136-145)
== END ==
PROVIDERS: PCP Family Medicine; Referring Provider Family Medicine; Visit Provider Family Medicine
DX: R31.9 Hematuria, unspecified (principal)
CPT/HCPCS: 36415; 80048; 81001; 85025

== ENCOUNTER 2019-12-25 10:34 | Observation (INO) | payer MEDICARE, OTHER, SELFPAY ==
[2019-11-12 11:11] VITALS: BMI 27.1
[2019-12-25 10:36] VITALS: BP 126/86; PULSE 121; RESP 17; TEMP 36.8; O2SAT 95; BMI 26.6
--- NOTE | 2019-12-25 10:54 | CT_ITS ---
STUDY: CT ABDOMEN AND PELVIS WITHOUT CONTRAST REASON FOR EXAM: Male, 74 years old. HEMATURIA AND RIGHT FLANK PAIN RADIATION DOSAGE (If Supplied By Facility): CTDIvol = ( 8.80 ) mGy, DLP = ( 472.52 ) mGycm TECHNIQUE: Transaxial images were obtained from the dome of the diaphragm to the symphysis pubis without oral contrast, and without intravenous contrast. Sagittal and coronal images were reconstructed. Individualized dose optimization techniques were used for this CT. COMPARISON: Comparison is made with prior study dated March 22, 2019. FINDINGS: Minimal increased markings at the lung bases suggestive of atelectasis and/or mild scarring. Coronary artery calcification. Normal liver. Normal gallbladder and extrahepatic biliary system. Normal spleen. Normal pancreas. Normal bilateral adrenal glands. Mild degree of the right perinephric stranding and mild degree of right hydronephrosis and proximal right hydroureter due to a 4.8 mm calculus in the proximal portion of the right ureter. Normal left kidney. There is a small hiatal hernia. Normal small intestine. Normal colon. The appendix is visualized and appears normal. There is scattered atherosclerotic calcification of the abdominal aorta, without a demonstrated aneurysm. Normal inferior vena cava. Normal retroperitoneum. Normal urinary bladder. There is enlargement of the prostate gland. This measures 5.6 cm by 5.6 cm. This causes indentation of the bilaterally base worse on the right side. Possible soft tissue mass in the right side of the bladder base. Correlation with discopathy is recommended. There is a small umbilical hernia containing fat. There are mild degenerative changes of the visualized lumbar spine. CT/Abdomen/Pelvis without Cont IMPRESSION: 4.8 mm calculus in the proximal portion of the right ureter causing mild right hydronephrosis and right perinephric stranding. Prostatic enlargement with indentation of the bladder base worse on the right side as described. A polypoid lesion at the base of the bladder on the right side should be ruled out. Electronically Signed: Hugh Rivera, at 12:26 EDT , Service support ,
--- NOTE | 2019-12-25 10:57 | ED.DCSUM_ITS ---
History of Present Illness Chief Complaint: Abd Pain Informant: Patient - Abdominal Pain/Flank Pain Onset: Days Context: Gradual Onset Timing: Intermittent Quality: Sharp Location: - - Right groin - Nausea/Vomiting/Emesis GI Symptom: Nausea. Negative for: Vomiting - Diarrhea/Melena/Hematochezia GI Symptom: Negative for: Diarrhea, Melena, Hematochezia Associated Symptoms: Frequency, Hematuria. Negative for: Dysuria Narrative: Patient is a 74-year-old male with history of left-sided kidney stones, coronary artery disease status post stenting, hyperlipidemia, hypothyroid, type 2 diabetes mellitus and BPH presenting with 2 to 3 days of intermittent right groin pain. Patient states he has had associated hematuria. He states that the blood in his urine was particularly bad a day or 2 ago but seems to resolve now. The pain comes and goes in waves. He states it feels like his prior kidney stones. He has some pain radiation to his right testicle. He denies any difficulty urinating or pain with urination. He notes he has chronic urinary f requency but attributes that to an enlarged prostate. Patient states he follows with urology and thinks is Dr. Mora. He denies is any current nausea and states his pain is active quite mild right now. States he is had nausea and dry heaves over the past few days however. He denies any chest pain, shortness of breath or upper abdominal pain. [place] any back pain. Denies any other complaints at this time. No fever or chills. Past Medical History - Allergies and Home Meds Allergies/Adverse Reactions: Allergies rosuvastatin [From Crestor] Adverse Reaction (Severe, Verified 12/25/19 10:36) Myalgias and joint pain Primary Care Physician: Raj Chow DO [Primary Care Provider] - Past Medical History: - - Kidney stones, coronary artery disease, hypertension, hyperlipidemia, diabetes mellitus, BPH Surgical History: - - Clavical repair and plating, hemmorroidectomy, H-plyoria, septoplasty. Cardiac stents Smoking Status: Former smoker Review of Systems General: Denies: Chills, Fever, Sweats Eyes: Denies: Visual changes - bilaterally, Diplopia ENT: Denies: Rhinorrhea, Sore throat Cardiovascular: Denies: Chest pain, Palpitations Respiratory: Denies: Dyspnea, Cough, Dyspnea on exertion Gastrointestinal: Reports: Abdominal pain - right groin, Nausea. Denies: Vomiting, Diarrhea, Melena, Hematochezia Genitourinary: Reports: Hematuria. Denies: Dysuria, Frequency Musculoskeletal: Denies: Back pain, Extremity Pain Skin: Denies: Rash, Wounds Neurological: Denies: Headache, Weakness, Numbness Physical Exam Vital Signs/Narrative: Vital Signs Temp Pulse Resp BP Pulse Ox 12/25/19 10:36 98.2 F 121 H 17 126/86 H 95 Inital Vital Signs reviewed: Yes General: Well nourished, Well developed, No Acute Distress Head: Normocephalic, Atraumatic Eyes: Perrl, EOMI ENT: Moist mucous membranes, No rhinorrhea Neck: Supple, Nontender Cardiovascular: Regular rate, Regular rhythm, No murmurs Respiratory: No distress, CTA bilaterally, Chest nontender Abdomen: Soft, Nontender, Nondistended, Normal bowel sounds, No masses. Negative for: Guarding, Rebound tenderness : - - Hernia appreciated, normal external genitalia, normal cremasteric reflex, no testicular tenderness to palpation, no penile discharge or bleeding noted Back: Nontender, Normal Inspection. Negative for: CVA tenderness Extremities: Nontender, No edema Skin: Normal color, No rash Neurological: Alert, Oriented x3, Cranial nerves II-XII grossly intact, Normal Strength, Normal Sensation Psychological: Normal affect, Normal Mood Diagnostic/Tx/Re-eval Clinical Impression(s) from Imaging Studies Abdomen/Pelvis CT 12/25/19 10:54 IMPRESSION: 4.8 mm calculus in the proximal portion of the right ureter causing mild right hydronephrosis and right perinephric stranding. Prostatic enlargement with indentation of the bladder base worse on the right side as described. A polypoid lesion at the base of the bladder on the right side should be ruled out. Electronically Signed: Hugh Rivera, at 12:26 EDT , Service support , Laboratory Data 12/25/19 12/25/19 12/25/19 11:00 11:00 11:00 WBC 9.4 RBC 4.80 Hgb 14.0 Hct 42.7 MCV 89.0 MCH 29.2 MCHC 32.8 RDW Std Deviation 44.8 H RDW Coeff of Denilson 13.7 Plt Count 215 MPV 10.0 Immature Gran % (Auto) 0.300 Neut % (Auto) 87.5 H Lymph % (Auto) 6.2 L [place] % (Auto) 5.2 Eos % (Auto) 0.4 Baso % (Auto) 0.4 Absolute Neuts (auto) 8.3 H Absolute Lymphs (auto) 0.58 L Nucleated RBC % 0 Sodium 137 Potassium 4.1 Chloride 105 Carbon Dioxide 26.0 Anion Gap 6 BUN 28 H Creatinine 2.00 H Estim Creat Clear Calc 33.97 Est GFR (MDRD) Af Amer 42 L Est GFR (MDRD) Non-Af 35 L BUN/Creatinine Ratio 14.0 Glucose 223 H Calcium 9.4 Urine Color Yellow Urine Clarity Sl. Cloudy Urine pH 6.5 Ur Specific [place] 1.015 Urine Protein 30 H Urine Glucose (UA) Normal Urine Ketones 50 H Urine Occult Blood 250 H Urine Nitrite Negative Urine Bilirubin Negative Urine Urobilinogen Normal Ur Leukocyte Esterase 25 H Urine RBC 25-50 SEEN Urine WBC 0-5 SEEN Ur Squamous Epith Cells 0-5 SEEN Urine Bacteria 0 SEEN Urine Mucus 0 SEEN - Medical Decision Making Patient evaluated for 2 to 3 days of right groin pain. Presentation is concerning for kidney stone. CT confirms this as well as some associated hydronephrosis. Patient does have a bump in his creatinine. His baseline appe ars to be 1.4-1.5 and he is 2.0 today. Patient is given IV fluids. Initially declined any thing for pain bed on reevaluation he is now wanting pain medication. He is ordered for morphine. Discussed with his urologist, Dr. Mora will admit patient for likely lithotripsy and fluids. Patient is hemodynamically stable in the emergency room. CT does show a potential polyp at the base of the bladder. Dr. Mora was also informed of this. ED Disposition - Plan for ED Patient: Disposition: Acute Care Hospital [facility] Diagnosis: DEENA (acute kidney injury), Calculus of proximal right ureter Referrals: Raj Chow DO [Primary Care Provider] -
[2019-12-25 11:16] LABS: Bacteria 0 SEEN /hpf (None Seen); Mucous, Urine 0 SEEN /hpf (<or=2+)
[2019-12-25 11:18] LABS: Absolute Lymphocyte Count 0.58 X10^3/uL (0.83-4.51); Absolute Neutrophil Count 8.3 X10^3/uL (2.0-7.7); Basophil# 0.04 X10^3/uL; Basophil% 0.4 % (0-1); Eosinophil# 0.04 X10^3/uL; Eosinophils% 0.4 % (0-5); Hematocrit 42.7 % (40-54); Lymphocyte # 0.58 X10^3/ul (4.0); Lymphocyte % 6.2 % (19-41); Mean Corp Hgb Conc 32.8 g/dL (32-36); Mean Corpuscular Hgb 29.2 pg (27.0-32.0); Monocyte# 0.49 X10^3/uL; Monocyte% 5.2 % (0-10); NRBC Flagged by Analyzer 0 % (0-5); Neutrophil # 8.25 X10^3/uL (2.7-7.7); Neutrophil % 87.5 % (47-70); POSITIVE DIFFERENTIAL YES; Platelet Count 215 K/mm3 (150-450); RBC Distribution Width CV 13.7 % (11.6-14.6); RBC Distribution Width SD 44.8 fl (35.1-43.9); White Blood Count 9.4 K/mm3 (4.4-11.0)
[2019-12-25 11:30] LABS: Color, Urine Yellow (Yellow); Glucose, Dipstick Normal (Normal); Ketone-Dipstick 50 mg/dl (Negative); Leukocyte Esterase-Dipstick 25 /ul (Negative); Nitrite-Dipstick Negative (Negative); Occult Blood-Urine 250 /ul (Negative); Protein-Dipstick 30 mg/dl (Negative); Specific Gravity, Urine 1.015 (1.002-1.030); Urine Bilirubin Dipstick Negative (Negative); Urine Clarity Sl. Cloudy (Clear); Urine Urobilinogen Normal (Normal); Urine pH 6.5 (5.0 - 8.0)
[2019-12-25 11:31] LABS: Differential Indicated SCAN CRITERIA MET
[2019-12-25 11:42] LABS: Anion Gap 6 (5-15); BUN 28 mg/dL (7-18); Calcium,Total 9.4 mg/dL (8.5-10.1); Chloride 105 mmol/L (98-107); EST Glomerular Filtration Rate 35 mL/min (>60); Est Glom Filt Rate - Afr Amer 42 mL/min (>60); Estimated Creatinine Clearance 33.97 ml/min; Glucose 223 mg/dL (74-106); Potassium 4.1 mmol/L (3.5-5.1); Sodium Level 137 mmol/L (136-145)
[2019-12-25 12:03] LABS: Red Blood Cells-Urine 25-50 SEEN /hpf (0-5); Squamous Epithelial Cells - UA 0-5 SEEN /hpf (0-5); White Blood Cells 0-5 SEEN /hpf (0-5)
[2019-12-25] MEDS: 0.9% Normal Saline 1,000 ML 999 ML IV (12:13)
[2019-12-25] MEDS: Ondansetron 4 MG/2 ML Vial IV ×2 (12:59→20:18)
[2019-12-25] MEDS: Morphine 4 MG/ML Syringe IV ×2 (13:00→20:18)
[2019-12-25 13:03] VITALS: BP 160/94; PULSE 86; RESP 16; TEMP 36.6; O2SAT 97
[2019-12-25 13:44] VITALS: RESP 18; BMI 26.0
[2019-12-25 13:48] VITALS: BP 144/76; PULSE 88; RESP 18; TEMP 36.9; O2SAT 98
--- NOTE | 2019-12-25 15:26 | PCM.HP.STD ---
Problem List (1) Calculus of proximal right ureter Status: Acute History of Present Illness Date of Admission: 12/25/19 Chief Complaint: obstructing right proximal ureteral calculi The patient is a 74 year old male with DEENA and presents with obstructing stone in proximal right ureter, admitted for rehydration and plan for stent placement in am. Past Medical History Past Medical History (Chronic Problems): Chronic Problems (Last Reviewed 11/12/19 @ 11:11 by Cyndi Singh) Non-ST elevation (NSTEMI) myocardial infarction (Chronic) History of coronary artery stent placement (Chronic) PCI/EZEKIEL mid LAD and LCX 08/2010; EZEKIEL prox LAD 12/25/2015; Dilated aortic root (Chronic) Atherosclerosis of cahto coronary artery of cahto heart without angina pectoris (Chronic) PCI/EZEKIEL mid LAD and LCX 08/2010; EZEKIEL prox LAD 12/25/2015; Hyperlipidemia (Chronic) Medical History: Medical History (Last Reviewed 12/25/19 @ 15:[address] Joseph Mora MD) Non-ST elevation (NSTEMI) myocardial infarction (Chronic) I21.4 Atherosclerosis of cahto coronary artery of cahto heart without angina pectoris (Chronic) I25.10 PCI/EZEKIEL mid LAD and LCX 08/2010; EZEKIEL prox LAD 12/25/2015; Hyperlipidemia (Chronic) E78.5 Arthritis M19.90 BPH (benign prostatic hyperplasia) N40.0 Hypothyroidism E03.9 Obstructive sleep apnea G47.33 Type 2 diabetes mellitus without complications E11.9 Allergies rosuvastatin [From Crestor] Adverse Reaction (Severe, Verified 12/25/19 10:36) Myalgias and joint pain Home Medications: Ambulatory Orders Medication Instructions Recorded Aspirin [Adult Low Dose Aspirin EC] 81 mg PO DAILY 02/17/16 tamsulosin 0.4 mg capsule 0.8 mg PO DAILY cap 10/07/17 Cholecalciferol (Vitamin D3) 2,000 unit PO DAILY 12/25/19 [Vitamin D3] Ezetimibe 10 mg PO QHS 12/25/19 Levothyroxine Sodium [Synthroid] 50 mcg PO DAILY 12/25/19 Metoprolol Succinate [Toprol Xl] 12.5 mg PO DAILY 12/25/19 Ticagrelor [Brilinta] 90 mg PO BID 12/25/19 metFORMIN HCl [Glucophage] 1,700 mg PO DAILY 12/25/19 metFORMIN HCl [Glucophage] 850 mg PO QHS 12/25/19 Surgical History: Surgical History (Last Reviewed 12/25/19 @ 15:[address] Joseph Mora MD) History of coronary artery stent placement (Chronic) Z95.5 PCI/EZEKIEL mid LAD and LCX 08/2010; EZEKIEL prox LAD 12/25/2015; History of hemorrhoidectomy Z98.890 History of left heart catheterization Onset Date: ~12/2015 Z98.890 History of nasal septoplasty Z98.890 Surgical History: - - Clavical repair and plating, hemmorroidectomy, H-plyoria, septoplasty. Cardiac stents Smoking Status: Former smoker - *Family History Maternal Family History: Family History (Last Reviewed 12/25/19 @ 15:[address] Joseph Mora MD) Mother CAD (coronary artery disease) Hx of CABG Father CAD (coronary artery disease) Hx of CABG Brother CAD (coronary artery disease) Hx of CABG Myocardial infarction Review of Systems Constitutional: Denies: Chills, Fever, Weight Change HEENT: Denies: Head Aches, Sinus Congestion, Sinus Drainage Cardiovascular: Denies: Chest Pain, Palpitations Respiratory: Denies: Cough, Shortness of breath at rest, Sputum production Gastrointestinal: Denies: Abdominal Pain, Nausea, Vomiting Genitourinary: Denies: Dysuria Musculoskeletal: Denies: Joint Pain, Joint Tenderness Skin: Denies: Rash, Wounds Neurological: Denies: Numbness, Tingling, Focal weakness Psychiatric: Denies: Anxiety, Depression, Homicidal Ideations, Suicidal Ideations Hematologic/ Lymphatic: Denies: Easy Bruising, Easy Bleeding VTE Information - Inpt Only VTE Present on Admission: No VTE Mechan Device Prophylaxis: SCD's Patient Problems: Active and Suspected Problems (Last Reviewed 11/12/19 @ 11:11 by Cyndi Singh) DEENA (acute kidney injury) (Acute) Calculus of proximal right ureter (Acute) - Physical Exam Vitals/I&O's: Vital Signs Temp Pulse Resp BP Pulse Ox 98.5 F 88 18 144/76 H 98 12/25/19 13:48 12/25/19 13:48 12/25/19 13:48 12/25/19 13:48 12/25/19 13:48 Oxygen Delivery Method Room Air Weight: 82.3 kg Body Mass Index (BMI) 26.0 Intake and Output for Last 24 Hours 12/23/19 12/24/19 12/25/19 23:59 23:59 23:59 Intake Total 999 / 999 Balance 999 / 999 General: Alert, Oriented x3, Cooperative HEENT: Atraumatic, PERRLA, EOMI, Normocephalic Neck: Supple, No JVD, Negative Carotid Bruits Lungs: Clear to auscultation, Normal air movement Cardiovascular: Regular rate, No murmurs Abdomen: Bowel Sounds Present, Soft, Non Tender Extremities: No edema, Capillary Refill Less than 3 Seconds Skin: No rashes, No breakdown Musculoskeletal: No Tenderness to Palpation of Joints or Extremities Neurological: Cranial nerves II-XII grossly intact Psych/Mental Status: Normal Affect, Appropriate Laboratory Results 12/25/19 11:00: WBC 9.4, RBC 4.80, Hgb 14.0, Hct 42.7, MCV 89.0, MCH 29.2, MCHC 32.8, RDW Std Deviation 44.8 H, RDW Coeff of Denilson 13.7, Plt Count 215, MPV 10.0, Immature Gran % (Auto) 0.300, Neut % (Auto) 87.5 H, Lymph % (Auto) 6.2 L, [place] % (Auto) 5.2, Eos % (Auto) 0.4, Baso % (Auto) 0.4, Absolute Neuts (auto) 8.3 H, Absolute Lymphs (auto) 0.58 L, Nucleated RBC % 0, Differential Comment COMMENT 12/25/19 11:00: Sodium 137, Potassium 4.1, Chloride 105, Carbon Dioxide 26.0, Anion Gap 6, BUN 28 H, Creatinine 2.00 H, Estim Creat Clear Calc 33.97, Est GFR (MDRD) Af Amer 42 L, Est GFR (MDRD) Non-Af 35 L, BUN/Creatinine Ratio 14.0, Glucose 223 H, Calcium 9.4 12/25/19 11:00: Urine Color Yellow, Urine Clarity Sl. Cloudy, Urine pH 6.5, Ur Specific [place] 1.015, Urine Protein 30 H, Urine Glucose (UA) Normal, Urine Ketones 50 H, Urine Occult Blood 250 H, Urine Nitrite Negative, Urine Bilirubin Negative, Urine Urobilinogen Normal, Ur Leukocyte Esterase 25 H, Urine RBC 25-50 SEEN, Urine WBC 0-5 SEEN, Ur Squamous Epith Cells 0-5 SEEN, Urine Bacteria 0 SEEN, Urine Mucus 0 SEEN Current Medications Aspirin (Ecotrin) 81 mg PO DAILY@0800 [facility] Cholecalciferol (Vitamin D (25mcg)) 2,000 unit PO DAILYCM [facility] Dextrose (D50w Syringe) 0 gm IV X1 PRN; Protocol PRN Reason: Hypoglycemia Ezetimibe (Zetia) 10 mg PO QHS DEEPAK Glucagon () 1 mg IM .X1 PRN PRN Reason: Hypoglycemia Sodium Chloride () 1,000 mls @ 100 mls/hr IV .Q10H [facility]EE[facility] Cefazolin Sodium () 1 gm in 50 mls @ 100 mls/hr IV Q8 [facility]EEPAK Cefazolin Sodium 1 gm/ Sodium (Chloride) 105 mls @ 150 mls/hr IV X1 ONE Stop: 12/26/19 08:47 Levothyroxine Sodium (Synthroid) 50 mcg PO DAILY@0600 [facility] Metoclopramide HCl (Reglan) 5 mg IV Q8H PRN PRN PRN Reason: NAUSEA Metoprolol Succinate (Toprol Xl (Beta Danielle)) 12.5 mg PO DAILY [facility] Morphine Sulfate () 2 mg IV Q4H PRN PRN PRN Reason: Pain Score 1-5/10 Morphine Sulfate () 4 mg IV Q4H PRN PRN PRN Reason: Pain Score 6-10/10 Ondansetron HCl (Zofran) 4 mg IV Q6H PRN PRN PRN Reason: NAUSEA Sodium Chloride () 10 - 40 ml IV UD PRN PRN Reason: SALINE FLUSH Tamsulosin HCl (Flomax) 0.8 mg PO DAILY@1730 [facility] Ticagrelor (Brilinta) 90 mg PO BID [facility] Assessment/Plan All Active Problems (Last Reviewed 11/12/19 @ 11:11 by Cyndi Singh) DEENA (acute kidney injury) (Acute) Calculus of proximal right ureter (Acute) admission for stone and dehydration obstruction with elevated creatinine acute kidney injury npo plan for stent in am. Essential Procedure Criteria Procedure Essential: Yes Criteria Note: On 12/01/2019 the [facility] of [facility] ([facility]) Public Order signed by [facility] Director My Kumar M.D., regarding the Management of Non-Essential Surgeries and Procedures for the purpose of preserving Personal Protective Equipment (PPE) and critical hospital capacity and resources within [place] went into effect as of 12/02/2019 at 5:00PM. According to the [facility] Public Order: This action will remain in full force and effect until the State of Emergency declared by the Governor no longer exists or the Director of the [facility] rescinds or modifies this Order.. This [facility] order stated all non-essential or elective surgeries and procedures that utilize PPE should be delayed unless there is undue risk to the current or future health of a patient. After reviewing the aforementioned [facility] Public Order and the patients clinical case, I have determined that the scheduled procedure meets the criteria to go forward. Risk to Patient if Procedure Delayed: Threat of permanent dysfunction of an extremity or organ system
[2019-12-25] MEDS: 0.9% Normal Saline 1,000 ML 100 ML IV (15:35)
[2019-12-25] MEDS: Cefazolin 1 GM/50 ML BAG IV ×2 (15:36→21:45)
[2019-12-25] MEDS: Morphine 2 MG/ML Syringe IV (16:06)
[2019-12-25] MEDS: 0.9% Saline Lock 10 ML Syringe IV (16:14)
[2019-12-25] MEDS: Metoclopramide 10 MG/2 ML Vial 5 MG IV (16:15)
[2019-12-25] MEDS: Tamsulosin HCl 0.4 MG Capsule 0.8 MG PO (18:40)
[2019-12-25 20:10] VITALS: BP 121/94; PULSE 88; RESP 18; TEMP 37.1; O2SAT 96
[2019-12-25] MEDS: TICAGRELOR 90 MG TABLET PO (21:45)
[2019-12-25] MEDS: Ezetimibe 10 MG Tablet PO (21:45)
[2019-12-26] VITALS (10 sets, daily range): BP systolic 109–142; BP diastolic 70–78; PULSE 81–97; RESP 14–18; TEMP 36.6–37.7; O2SAT 94–100
[2019-12-26] MEDS: 0.9% Normal Saline 1,000 ML 100 ML IV ×2 (01:30→08:47)
[2019-12-26] MEDS: Morphine 4 MG/ML Syringe IV ×2 (02:03→06:17)
[2019-12-26] MEDS: Ondansetron 4 MG/2 ML Vial IV (02:10)
--- NOTE | 2019-12-26 05:00 | EKG12_ITS ---
Test Reason : PRE-OP Blood Pressure : / mmHG Vent. Rate : 090 BPM Atrial Rate : 090 BPM P-R Int : 168 ms QRS Dur : 092 ms QT Int : 346 ms P-R-T Axes : 047 007 044 degrees QTc Int : 423 ms Normal sinus rhythm Normal ECG No previous ECGs available Confirmed by BO ROMERO, KELLI ([id number]), sports editor PADMINI ANDERSON ([id number]) on 12/28/2019 11:12:02 AM Referred By: PARTH Confirmed By:KELLI SORIANO MD
[2019-12-26] MEDS: Levothyroxine 50 MCG Tablet PO (06:17)
[2019-12-26] MEDS: Metoprolol(XL)Succ 25 MG Tablet 12.5 MG PO (06:17)
[2019-12-26] MEDS: Cefazolin 1 GM/50 ML BAG IV ×2 (07:10→13:30)
--- NOTE | 2019-12-26 07:10 | PN_ITS ---
Patient Problems: Active and Suspected Problems (Last Reviewed 12/25/19 @ 15:[address] Joseph Mora MD) DEENA (acute kidney injury) (Acute) Calculus of proximal right ureter (Acute) Subjective: Admitted for kidney stone and dehydration acute kidney injury. Still having nausea but no vomiting clinically stable no fevers or chills plan for cystoscopy and stent placement today - Physical Exam Vitals/I&O's: Vital Signs Temp Pulse Resp BP Pulse Ox 98.2 F 97 18 131/76 H 94 12/26/19 06:55 12/26/19 06:55 12/26/19 06:55 12/26/19 06:55 12/26/19 06:55 Oxygen Delivery Method Room Air Weight: 82.3 kg Body Mass Index (BMI) 26.0 Intake and Output for Last 24 Hours 12/24/19 12/25/19 12/26/19 23:59 23:59 23:59 Intake Total 2416.67 / 2416.67 325 / 325 Output Total 550 / 550 300 / 300 Balance 1866.67 / 1866.67 25 / 25 General: Alert, Oriented x3, Cooperative HEENT: Atraumatic, PERRLA, EOMI, Normocephalic Neck: Supple, No JVD, Negative Carotid Bruits Lungs: Clear to auscultation, Normal air movement Cardiovascular: Regular rate, No murmurs Abdomen: Bowel Sounds Present, Soft, Non Tender Extremities: No edema, Capillary Refill Less than 3 Seconds Skin: No rashes, No breakdown Musculoskeletal: No Tenderness to Palpation of Joints or Extremities Neurological: Cranial nerves II-XII grossly intact Psych/Mental Status: Normal Affect, Appropriate Laboratory Results 12/25/19 11:00: WBC 9.4, RBC 4.80, Hgb 14.0, Hct 42.7, MCV 89.0, MCH 29.2, MCHC 32.8, RDW Std Deviation 44.8 H, RDW Coeff of Denilson 13.7, Plt Count 215, MPV 10.0, Immature Gran % (Auto) 0.300, Neut % (Auto) 87.5 H, Lymph % (Auto) 6.2 L, [place] % (Auto) 5.2, Eos % (Auto) 0.4, Baso % (Auto) 0.4, Absolute Neuts (auto) 8.3 H, Absolute Lymphs (auto) 0.58 L, Nucleated RBC % 0, Differential Comment COMMENT 12/25/19 11:00: Sodium 137, Potassium 4.1, Chloride 105, Carbon Dioxide 26.0, Anion Gap 6, BUN 28 H, Creatinine 2.00 H, Estim Creat Clear Calc 33.97, Est GFR (MDRD) Af Amer 42 L, Est GFR (MDRD) Non-Af 35 L, BUN/Creatinine Ratio 14.0, Glucose 223 H, Calcium 9.4 12/25/19 11:00: Urine Color Yellow, Urine Clarity Sl. Cloudy, Urine pH 6.5, Ur Specific [place] 1.015, Urine Protein 30 H, Urine Glucose (UA) Normal, Urine Ketones 50 H, Urine Occult Blood 250 H, Urine Nitrite Negative, Urine Bilirubin Negative, Urine Urobilinogen Normal, Ur Leukocyte Esterase 25 H, Urine RBC 25-50 SEEN, Urine WBC 0-5 SEEN, Ur Squamous Epith Cells 0-5 SEEN, Urine Bacteria 0 SEEN, Urine Mucus 0 SEEN Current Medications Aspirin (Ecotrin) 81 mg PO DAILY@0800 [facility] Cholecalciferol (Vitamin D (25mcg)) 2,000 unit PO DAILYCM [facility] Dextrose (D50w Syringe) 0 gm IV X1 PRN; Protocol PRN Reason: Hypoglycemia Ezetimibe (Zetia) 10 mg PO QHS [facility] Last Admin: 12/25/19 21:45 Dose: 10 mg Documented by: Glucagon () 1 mg IM .X1 PRN PRN Reason: Hypoglycemia Sodium Chloride () 1,000 mls @ 100 mls/hr IV .Q10H [facility] Last Admin: 12/26/19 01:30 Dose: 100 mls/hr Documented by: Cefazolin Sodium () 1 gm in 50 mls @ 100 mls/hr IV Q8 [facility] Last Infusion: 12/25/19 22:15 Dose: Infused Documented by: Levothyroxine Sodium (Synthroid) 50 mcg PO DAILY@0600 [facility] Last Admin: 12/26/19 06:17 Dose: 50 mcg Documented by: Metoclopramide HCl (Reglan) 5 mg IV Q8H PRN PRN PRN Reason: NAUSEA Last Admin: 12/25/19 16:15 Dose: 5 mg Documented by: Metoprolol Succinate (Toprol Xl (Beta Danielle)) 12.5 mg PO DAILY [facility] Last Admin: 12/26/19 06:17 Dose: 12.5 mg Documented by: Morphine Sulfate () 2 mg IV Q4H PRN PRN PRN Reason: Pain Score 1-5/10 Last Admin: 12/25/19 16:06 Dose: 2 mg Documented by: Morphine Sulfate () 4 mg IV Q4H PRN PRN PRN Reason: Pain Score 6-10/10 Last Admin: 12/26/19 06:17 Dose: 4 mg Documented by: Ondansetron HCl (Zofran) 4 mg IV Q6H PRN PRN PRN Reason: NAUSEA Last Admin: 12/26/19 02:10 Dose: 4 mg Documented by: Sodium Chloride () 10 - 40 ml IV UD PRN PRN Reason: SALINE FLUSH Last Admin: 12/25/19 16:14 Dose: 10 ml Documented by: Tamsulosin HCl (Flomax) 0.8 mg PO DAILY@1730 [facility] Last Admin: 12/25/19 18:40 Dose: 0.8 mg Documented by: Ticagrelor (Brilinta) 90 mg PO BID [facility] Last Admin: 12/25/19 21:45 Dose: 90 mg Documented by: Medical Necessity - Tobacco Use Smoking Status: Former smoker Assessment/Plan All Active Problems (Last Reviewed 12/25/19 @ 15:[address] Joseph Mora MD) DEENA (acute kidney injury) (Acute) Calculus of proximal right ureter (Acute) Plan to taken to the operating room today for cystoscopy and stent placement discharge later home today.
--- NOTE | 2019-12-26 07:11 | DCINST_ITS ---
Discharge Diet: No Restrictions Discharge Activity: Return to Normal Activity, May Not Drive - for 2 days. Additional Activity Instructions:: Please be aware that pain medications may cause nausea. You should typically eat light foods as you take your pain medication. Pain medication may cause constipation, if this is a problem for you, please discuss with your doctor. Call your doctor if you observe: Fever of 101 or Higher Suture Line Care: Avoid Pulling/Pushing, Avoid Pinching/Bending Allergies/Adverse Reactions: Allergies rosuvastatin [From Crestor] Adverse Reaction (Severe, Verified 12/25/19 10:36) Myalgias and joint pain Medications to take at Discharge Aspirin [Adult Low Dose Aspirin EC] 81 mg PO DAILY 02/17/16 tamsulosin 0.4 mg capsule 0.8 mg PO DAILY cap 10/07/17 Cholecalciferol (Vitamin D3) [Vitamin D3] 2,000 unit PO DAILY 12/25/19 Ezetimibe 10 mg PO QHS 12/25/19 Levothyroxine Sodium [Synthroid] 50 mcg PO DAILY 12/25/19 Metoprolol Succinate [Toprol Xl] 12.5 mg PO DAILY 12/25/19 Ticagrelor [Brilinta] 90 mg PO BID 12/25/19 metFORMIN HCl [Glucophage] 1,700 mg PO DAILY 12/25/19 metFORMIN HCl [Glucophage] 850 mg PO QHS 12/25/19 Ciprofloxacin [Cipro] 500 mg PO BID #6 tab 12/26/19 Hydrocodone/Acetaminophen [[place] 5-325 Tablet] 1 each PO Q4H PRN PRN 5 Days #20 tablet 12/26/19 The following prescriptions were given: Ciprofloxacin [Cipro] 500 mg PO BID #6 tab Transmission Status: Pending to [facility] Hydrocodone/Acetaminophen [[place] 5-325 Tablet] 1 each PO Q4H PRN PRN 5 Days #20 tablet PRN Reason: Pain Score 1-06/25 Transmission Status: Received by [facility] Primary Care Physician: Raj Chow DO [Primary Care Provider] - Test Results: Test results from this visit will be discussed in further detail at your follow- up appointment, if applicable. Please Follow Up With: Joseph Mora MD When: please call to get set up for Surgery to laser stone.
--- NOTE | 2019-12-26 07:13 | DS.PCM_ITS ---
Discharge Date and Diagnosis - Problem List Patient Problems: Active and Suspected Problems (Last Reviewed 12/25/19 @ 15:[address] Joseph Mora MD) DEENA (acute kidney injury) (Acute) Calculus of proximal right ureter (Acute) Date of Admission: 12/25/19 Date of Discharge: 12/26/19 - Primary Discharge Diagnosis Active and Suspected Problems (Last Reviewed 12/25/19 @ 15:[address] Joseph Mora MD) DEENA (acute kidney injury) (Acute) Calculus of proximal right ureter (Acute) - Secondary Discharge Diagnosis Chronic Problems (Last Reviewed 12/25/19 @ 15:[address] Joseph Mora MD) Non-ST elevation (NSTEMI) myocardial infarction (Chronic) History of coronary artery stent placement (Chronic) PCI/EZEKIEL mid LAD and LCX 08/2010; EZEKIEL prox LAD 12/25/2015; Dilated aortic root (Chronic) Atherosclerosis of [place] coronary artery of [place] heart without angina pectoris (Chronic) PCI/EZEKIEL mid LAD and LCX 08/2010; EZEKIEL prox LAD 12/25/2015; Hyperlipidemia (Chronic) Hospital Course and Treatment Imaging Results: 12/26/19 07:00 O.R. Fluoro for C-Arm [RAD] Urgent Operations: - - Cystoscopy and right stent placement Procedures: None Summary of Care Provided: The patient is a 74 year old male who was admitted with a creatinine of 2.0 had acute kidney injury dehydration has a stone in the proximal ureter on the right side causing obstruction and hydronephrosis. He was admitted for rehydration underwent a stent placement and and once clinically stable he was discharged home with antibiotics and pain medicine. Patient Problems: Active and Suspected Problems (Last Reviewed 12/25/19 @ 15:[address] Joseph Mora MD) DEENA (acute kidney injury) (Acute) Calculus of proximal right ureter (Acute) - Physical Exam Vitals/I&O's: Vital Signs Temp Pulse Resp BP Pulse Ox 98.2 F 97 18 131/76 H 94 12/26/19 06:55 12/26/19 06:55 12/26/19 06:55 12/26/19 06:55 12/26/19 06:55 Oxygen Delivery Method Room Air Weight: 82.3 kg Body Mass Index (BMI) 26.0 Intake and Output for Last 24 Hours 12/24/19 12/25/19 12/26/19 23:59 23:59 23:59 Intake Total 2416.67 / 2416.67 325 / 325 Output Total 550 / 550 300 / 300 Balance 1866.67 / 1866.67 General: Alert, Oriented x3, Cooperative HEENT: Atraumatic, PERRLA, EOMI, Normocephalic Neck: Supple, No JVD, Negative Carotid Bruits Lungs: Clear to auscultation, Normal air movement Cardiovascular: Regular rate, No murmurs Abdomen: Bowel Sounds Present, Soft, Non Tender Extremities: No edema, Capillary Refill Less than 3 Seconds Skin: No rashes, No breakdown Musculoskeletal: No Tenderness to Palpation of Joints or Extremities Neurological: Cranial nerves II-XII grossly intact Psych/Mental Status: Normal Affect, Appropriate Laboratory Results 12/25/19 11:00: WBC 9.4, RBC 4.80, Hgb 14.0, Hct 42.7, MCV 89.0, MCH 29.2, MCHC 32.8, RDW Std Deviation 44.8 H, RDW Coeff of [place]ilson 13.7, Plt Count 215, MPV 10.0, Immature Gran % (Auto) 0.300, Neut % (Auto) 87.5 H, Lymph % (Auto) 6.2 L, [place] % (Auto) 5.2, Eos % (Auto) 0.4, Baso % (Auto) 0.4, Absolute Neuts (auto) 8.3 H, Absolute Lymphs (auto) 0.58 L, Nucleated RBC % 0, Differential Comment COMMENT 12/25/19 11:00: Sodium 137, Potassium 4.1, Chloride 105, Carbon Dioxide 26.0, Anion Gap 6, BUN 28 H, Creatinine 2.00 H, Estim Creat Clear Calc 33.97, Est GFR (MDRD) Af Amer 42 L, Est GFR (MDRD) Non-Af 35 L, BUN/Creatinine Ratio 14.0, Glucose 223 H, Calcium 9.4 12/25/19 11:00: Urine Color Yellow, Urine Clarity Sl. Cloudy, Urine pH 6.5, Ur Specific [place] 1.015, Urine Protein 30 H, Urine Glucose (UA) Normal, Urine Ketones 50 H, Urine Occult Blood 250 H, Urine Nitrite Negative, Urine Bilirubin Negative, Urine Urobilinogen Normal, Ur Leukocyte Esterase 25 H, Urine RBC 25-50 SEEN, Urine WBC 0-5 SEEN, Ur Squamous Epith Cells 0-5 SEEN, Urine Bacteria 0 SEEN, Urine Mucus 0 SEEN Current Medications Aspirin (Ecotrin) 81 mg PO DAILY@0800 [facility] Cholecalciferol (Vitamin D (25mcg)) [facility] Dextrose (D50w Syringe) 0 gm IV X1 PRN; Protocol PRN Reason: Hypoglycemia Ezetimibe (Zetia) 10 mg PO QHS [facility] Last Admin: 12/25/19 21:45 Dose: 10 mg Documented by: Glucagon () 1 mg IM .X1 PRN PRN Reason: Hypoglycemia Sodium Chloride () 1,000 mls @ 100 mls/hr IV .Q10H [facility] Last Admin: 12/26/19 01:30 Dose: 100 mls/hr Documented by: Cefazolin Sodium () 1 gm in 50 mls @ 100 mls/hr IV Q8 [facility] Last Infusion: 12/25/19 22:15 Dose: Infused Documented by: Levothyroxine Sodium (Synthroid) 50 mcg PO DAILY@0600 [facility] Last Admin: 12/26/19 06:17 Dose: 50 mcg Documented by: Metoclopramide HCl (Reglan) 5 mg IV Q8H PRN PRN PRN Reason: NAUSEA Last Admin: 12/25/19 16:15 Dose: 5 mg Documented by: Metoprolol Succinate (Toprol Xl (Beta Danielle)) 12.5 mg PO DAILY [facility] Last Admin: 12/26/19 06:17 Dose: 12.5 mg Documented by: Morphine Sulfate () 2 mg IV Q4H PRN PRN PRN Reason: Pain Score 1-5/10 Last Admin: 12/25/19 16:06 Dose: 2 mg Documented by: Morphine Sulfate () 4 mg IV Q4H PRN PRN PRN Reason: Pain Score 6-10/10 Last Admin: 12/26/19 06:17 Dose: 4 mg Documented by: Ondansetron HCl (Zofran) 4 mg IV Q6H PRN PRN PRN Reason: NAUSEA Last Admin: 12/26/19 02:10 Dose: 4 mg Documented by: Sodium Chloride () 10 - 40 ml IV UD PRN PRN Reason: SALINE FLUSH Last Admin: 12/25/19 16:14 Dose: 10 ml Documented by: Tamsulosin HCl (Flomax) 0.8 mg PO DAILY@1730 [facility] Last Admin: 12/25/19 18:40 Dose: 0.8 mg Documented by: Ticagrelor (Brilinta) 90 mg PO BID [facility] Last Admin: 12/25/19 21:45 Dose: 90 mg Documented by: Discharge Diet: No Restrictions Discharge Activity: Return to Normal Activity, May Not Drive - for 2 days. Additional Activity Instructions:: Please be aware that pain medications may cause nausea. You should typically eat light foods as you take your pain medication. Pain medication may cause constipation, if this is a problem for you, please discuss with your doctor. Call your doctor if you observe: Fever of 101 or Higher Suture Line Care: Avoid Pulling/Pushing, Avoid Pinching/Bending Home Medications: Medications to take at Discharge Aspirin [Adult Low Dose Aspirin EC] 81 mg PO DAILY 02/17/16 tamsulosin 0.4 mg capsule 0.8 mg PO DAILY cap 10/07/17 Cholecalciferol (Vitamin D3) [Vitamin D3] 2,000 unit PO DAILY 12/25/19 Ezetimibe 10 mg PO QHS 12/25/19 Levothyroxine Sodium [Synthroid] 50 mcg PO DAILY 12/25/19 Metoprolol Succinate [Toprol Xl] 12.5 mg PO DAILY 12/25/19 Ticagrelor [Brilinta] 90 mg PO BID 12/25/19 metFORMIN HCl [Glucophage] 1,700 mg PO DAILY 12/25/19 metFORMIN HCl [Glucophage] 850 mg PO QHS 12/25/19 Ciprofloxacin [Cipro] 500 mg PO BID #6 tab 12/26/19 Hydrocodone/Acetaminophen [[place] 5-325 Tablet] 1 each PO Q4H PRN PRN 5 Days #20 tablet 12/26/19 Following Prescrptions Were Given to Patient: Ciprofloxacin [Cipro] 500 mg PO BID #6 tab Transmission Status: Pending to [facility] Hydrocodone/Acetaminophen [[place] 5-325 Tablet] 1 each PO Q4H PRN PRN 5 Days #20 tablet PRN Reason: Pain Score 1-06/25 Transmission Status: Received by [facility] [address] Primary Care Physician: Claudine,Raj, DO [Primary Care Provider] - Please Follow Up With: Joseph Mora MD When: please call to get set up for Surgery to laser stone. Medical Necessity - Tobacco Use Smoking Status: Former smoker Meaningful Use Info Meaningful Use Diagnoses (Choose all that apply): None applicable
[2019-12-26 07:29] LABS: Absolute Lymphocyte Count 0.44 X10^3/uL (0.83-4.51); Absolute Neutrophil Count 8.3 X10^3/uL (2.0-7.7); Basophil# 0.02 X10^3/uL; Basophil% 0.2 % (0-1); Hematocrit 38.8 % (40-54); Hemoglobin 12.5 g/dL (13.0-16.5); Lymphocyte # 0.44 X10^3/ul (4.0); Lymphocyte % 4.7 % (19-41); Mean Corp Hgb Conc 32.2 g/dL (32-36); Mean Corpuscular Hgb 29.2 pg (27.0-32.0); Mean Corpuscular Volume 90.7 fL (80-94); Mean Platelet Vol. 10.2 fl (6.2-12.0); Monocyte# 0.62 X10^3/uL; Monocyte% 6.6 % (0-10); NRBC Flagged by Analyzer 0 % (0-5); Neutrophil # 8.33 X10^3/uL (2.7-7.7); Neutrophil % 88.1 % (47-70); POSITIVE DIFFERENTIAL YES; Platelet Count 189 K/mm3 (150-450); RBC Distribution Width CV 13.6 % (11.6-14.6); RBC Distribution Width SD 45.1 fl (35.1-43.9); Red Blood Count 4.28 M/mm3 (4.6-6.2); White Blood Count 9.5 K/mm3 (4.4-11.0)
[2019-12-26] MEDS: Lidocaine Jelly 2% 20 ML Syringe (URO-JET) 20 APPLIC (07:30)
--- NOTE | 2019-12-26 07:41 | OP.PCM_ITS ---
Problem List (1) Calculus of proximal right ureter Status: Acute Report of Operation Date of Procedure: 12/26/19 Pre-Operative Diagnosis: Obstructing right ureteral calculi acute kidney injury Post-Operative Diagnosis: The same Surgery/Procedure Performed:: Cystoscopy, right retrograde pyelogram, right stent placement, interpretation fluoroscopic images. Description of Surgical Findings:: Patient presented to the hospital with an obstructing stone and severe renal colic. Possible that the patient may have an infection. Has not been able to control the pain and is in the hospital and today were to take the patient back to the operating room for a stent placement. Patient understands a stent can cause discomfort and bother blood in the urine. Patient also knows that is possible there may be an underlying infection. We discussed the reason for the stent all the questions were addressed and proceed with cystoscopy and stent placement. Patient was taken back to the operating room and was placed supine on the table after induction of anesthesia was placed in dorsolithotomy position with legs in stirrups. The urethra was prepped and draped in usual sterile fashion went into the bladder with a 21 [place] rigid cystourethroscope, the urethra was normal, the prostate findings were enlarged with hypertrophy, the bladder findings were normal no tumors trigone normal, I then cannulated the right ureter advanced a wire up into the kidney performed a retrograde pyelogram interpreted the fluoroscopic images could see contrast going up. Then over the wire I advanced a stent it was a 6 [place]ese by 26 cm stent, once a stent was in good position I pulled the wire and the stent coiled in the kidney and bladder good position and I drained the bladder patient's anesthetic is reversed and was taken back to the PACU in good condition. Type of Anesthesia:: Local MAC Drains: stent right side - Admit VTE Documentation VTE Present on Admission: No VTE Mechan Device Prophylaxis: SCD's
[2019-12-26 07:46] LABS: International Normalized Ratio 1.1; Prothrombin Time (Protime)PT. 13.8 SECONDS (11.7-14.9)
[2019-12-26 07:55] LABS: Anion Gap 8 (5-15); BUN 27 mg/dL (7-18); BUN/Creat Ratio 12.2 RATIO (10-20); Calcium,Total 8.1 mg/dL (8.5-10.1); Chloride 106 mmol/L (98-107); Creatinine, Serum 2.22 mg/dL (0.70-1.30); EST Glomerular Filtration Rate 31 mL/min (>60); Est Glom Filt Rate - Afr Amer 38 mL/min (>60); Glucose 123 mg/dL (74-106); Potassium 4.2 mmol/L (3.5-5.1); Sodium Level 138 mmol/L (136-145)
[2019-12-26 08:12] LABS: Differential Indicated SCAN CRITERIA MET
[2019-12-26 08:16] LABS: Bedside Glucose 134 mg/dL (70-110)
[2019-12-26 08:18] LABS: Differential Comment SCANNED
[2019-12-26] MEDS: Aspirin E.C. 81 MG Tablet PO (08:44)
[2019-12-26] MEDS: TICAGRELOR 90 MG TABLET PO (08:44)
== END 2019-12-26 07:12 | disposition home or self-care (01) ==
LOC: ED 12:51 → PCU 14:39
PROVIDERS: Admitting Provider Urology; Emergency Provider Emergency Medicine; PCP Family Medicine; Visit Provider Urology
PROC: (CPT 52332; principal; 2019-12-26 07:50)
DX: N13.2 Hydronephrosis with renal and ureteral calculous obstruction (principal); E03.9 Hypothyroidism, unspecified; E11.9 Type 2 diabetes mellitus without complications; I25.10 Atherosclerotic heart disease of native coronary artery without angina pectoris; E78.5 Hyperlipidemia, unspecified; N40.1 Benign prostatic hyperplasia with lower urinary tract symptoms; R35.0 Frequency of micturition; N17.9 Acute kidney failure, unspecified; E86.0 Dehydration; M19.90 Unspecified osteoarthritis, unspecified site; I25.2 Old myocardial infarction; Z87.442 Personal history of urinary calculi; Z79.899 Other long term (current) drug therapy; Z95.5 Presence of coronary angioplasty implant and graft; Z79.84 Long term (current) use of oral hypoglycemic drugs; Z79.02 Long term (current) use of antithrombotics/antiplatelets; Z87.891 Personal history of nicotine dependence; I10 Essential (primary) hypertension
CPT/HCPCS: 52332; 36415; 74176; 76000; 80048; 81001; 82962; 85025; 85610; 93005; 96361; 96365; 96366; 96375; 96376; 99218; 99285; J7030; A4216; C1769; C2617; G0378; J2405

== ENCOUNTER 2019-12-30 07:54 | Day surgery (SDC) | payer MEDICARE, OTHER, SELFPAY ==
[2019-12-25 13:44] VITALS: BMI 26.0
[2019-12-30] VITALS (7 sets, daily range): BP systolic 123–151; BP diastolic 74–86; PULSE 68–86; RESP 16; TEMP 36.1–36.9; O2SAT 96–100; BMI 25.7
--- NOTE | 2019-12-30 | CALC_PTH ---
PATIENT: KIMBERLEY YOUNG LOC: [facility] [place] U#:[id number] AGE/SX: 74/M ROOM: RE12/30/[address]: Dr. Joseph Mora MD : [id number] BED: DIS: 12/30/2019 SPEC #: [id number] RECD: 01/01/20 10:46 STATUS: EDU REKeren #: [id number] VALE: 12/30/19 00:[address]: Joseph Mora DEPT: SURGICAL PATHOLOGY RECD BY: Gokul Hearn ENTERED: 01/01/20 10:47 SP TYPE: Calculi OTHR DR: Dr. Raj Chow, DO Tissues: CALCULI Procedures: Surgery Specimen Level I HEADER OPERATION: Cystoscopy, ureteroscopy, balloon dilation, retrograde, laser PRE-OP DIAGNOSIS: Obstructing right ureteral calculi TISSUE SUBMITTED: Calculi for analysis GROSS DIAGNOSIS A fragment of stone, clinically right ureteral calculus for analysis. SJ:harriet 01/04/20 COMMENT The calculus is submitted in its entirety for chemical stone analysis. The results from this study will be reported separately. GROSS DESCRIPTION Received is one container labeled with the patient's name and designated calculi for analysis. The specimen consists of a fragment of stone covered with blood measuring 0.7 x 0.3 x 0.2 cm. The entire specimen is submitted for stone analysis. / SALINA:harriet 01/01/20 CPT: 23890
[2019-12-30] MEDS: Lactated Ringers 1,000 ML 100 ML IV (08:40)
[2019-12-30 08:46] LABS: Bedside Glucose 104 mg/dL (70-110)
[2019-12-30] MEDS: Cefazolin 2 GM in 0.9% Normal Saline 100 ML IV (11:13)
--- NOTE | 2019-12-30 11:18 | PCM.HP.STD ---
Problem List (1) Obstructing right ureteral calculus stat Status: Acute History of Present Illness Date of Admission: 12/30/19 Chief Complaint: Obstructing right ureteral calculus The patient is a 74 year old M male who presented with a stone causing obstruction and underwent stent placement and now comes back to the operating room for definitive treatment and laser lithotripsy of the stone and stent placement. Past Medical History Past Medical History (Chronic Problems): Chronic Problems (Last Reviewed 12/25/19 @ 15:[address] Joseph Mora MD) Non-ST elevation (NSTEMI) myocardial infarction (Chronic) History of coronary artery stent placement (Chronic) PCI/EZEKIEL mid LAD and LCX 08/2010; EZEKIEL prox LAD 12/25/2015; Dilated aortic root (Chronic) Atherosclerosis of [place] coronary artery of [place] heart without angina pectoris (Chronic) PCI/EZEKIEL mid LAD and LCX 08/2010; EZEKIEL prox LAD 12/25/2015; Hyperlipidemia (Chronic) Medical History: Medical History (Last Reviewed 12/25/19 @ 15:[address] Joseph Mora MD) Non-ST elevation (NSTEMI) myocardial infarction (Chronic) I21.4 Atherosclerosis of [place] coronary artery of [place] heart without angina pectoris (Chronic) I25.10 PCI/EZEKIEL mid LAD and LCX 08/2010; EZEKIEL prox LAD 12/25/2015; Hyperlipidemia (Chronic) E78.5 Arthritis M19.90 BPH (benign prostatic hyperplasia) N40.0 Hypothyroidism E03.9 Obstructive sleep apnea G47.33 Type 2 diabetes mellitus without complications E11.9 Allergies rosuvastatin [From Crestor] Adverse Reaction (Severe, Verified 12/25/19 10:36) Myalgias and joint pain Home Medications: Ambulatory Orders Medication Instructions Recorded Aspirin [Adult Low Dose Aspirin EC] 81 mg PO DAILY 02/17/16 tamsulosin 0.4 mg capsule 0.8 mg PO DAILY cap 10/07/17 Cholecalciferol (Vitamin D3) 2,000 unit PO DAILY 12/25/19 [Vitamin D3] Ezetimibe 10 mg PO QHS 12/25/19 Levothyroxine Sodium [Synthroid] 50 mcg PO DAILY 12/25/19 Metoprolol Succinate [Toprol Xl] 12.5 mg PO DAILY 12/25/19 Ticagrelor [Brilinta] 90 mg PO BID 12/25/19 metFORMIN HCl [Glucophage] 1,700 mg PO DAILY 12/25/19 metFORMIN HCl [Glucophage] 850 mg PO QHS 12/25/19 Ciprofloxacin [Cipro] 500 mg PO BID #6 tab 12/26/19 Hydrocodone/Acetaminophen [[place] 1 ea PO Q4H PRN PRN 5 Days #20 tab 12/26/19 5-325 Tablet] Surgical History: Surgical History (Last Reviewed 12/25/19 @ 15:[address] Joseph Mora MD) History of coronary artery stent placement (Chronic) Z95.5 PCI/EZEKIEL mid LAD and LCX 08/2010; EZEKIEL prox LAD 12/25/2015; History of hemorrhoidectomy Z98.890 History of left heart catheterization Onset Date: ~12/2015 Z98.890 History of nasal septoplasty Z98.890 Surgical History: - - Clavical repair and plating, hemmorroidectomy, H-plyoria, septoplasty. Cardiac stents Smoking Status: Former smoker Review of Systems Constitutional: Denies: Chills, Fever, Weight Change HEENT: Denies: Head Aches, Sinus Congestion, Sinus Drainage Cardiovascular: Denies: Chest Pain, Palpitations Respiratory: Denies: Cough, Shortness of breath at rest, Sputum production Gastrointestinal: Denies: Abdominal Pain, Nausea, Vomiting Genitourinary: Denies: Dysuria Musculoskeletal: Denies: Joint Pain, Joint Tenderness Skin: Denies: Rash, Wounds Neurological: Denies: Numbness, Tingling, Focal weakness Psychiatric: Denies: Anxiety, Depression, Homicidal Ideations, Suicidal Ideations Hematologic/ Lymphatic: Denies: Easy Bruising, Easy Bleeding VTE Information - Inpt Only VTE Present on Admission: No VTE Mechan Device Prophylaxis: SCD's Patient Problems: Active and Suspected Problems (Last Reviewed 12/25/19 @ 15:[address] Joseph Mora MD) Obstructing right ureteral calculus stat (Acute) - Physical Exam Vitals/I&O's: Vital Signs Temp Pulse Resp BP Pulse Ox 98.5 F 78 16 123/74 H 99 12/30/19 08:17 12/30/19 08:17 12/30/19 08:17 12/30/19 08:17 12/30/19 08:17 Oxygen Delivery Method Room Air Weight: 81.193 kg Body Mass Index (BMI) 25.7 Finger Stick Blood Glucose 134 General: Alert, Oriented x3, Cooperative HEENT: Atraumatic, PERRLA, EOMI, Normocephalic Neck: Supple, No JVD, Negative Carotid Bruits Lungs: Clear to auscultation, Normal air movement Cardiovascular: Regular rate, No murmurs Abdomen: Bowel Sounds Present, Soft, Non Tender Extremities: No edema, Capillary Refill Less than 3 Seconds Skin: No rashes, No breakdown Musculoskeletal: No Tenderness to Palpation of Joints or Extremities Neurological: Cranial nerves II-XII grossly intact Psych/Mental Status: Normal Affect, Appropriate Laboratory Results 12/30/19 08:30: POC Glucose 104 Current Medications Lactated Ringer's () 1,000 mls @ 100 mls/hr IV .Q10H [facility] Last Admin: 12/30/19 08:40 Dose: 100 mls/hr Documented by: Assessment/Plan All Active Problems (Last Reviewed 12/25/19 @ 15:[address] Joseph Mora MD) DEENA (acute kidney injury) (Acute) Calculus of proximal right ureter (Acute) Obstructing right ureteral calculus stat (Acute) Procedure treatment of obstructing stone. Essential Procedure Criteria Procedure Essential: Yes Criteria Note: On 12/01/2019 the [place] Department of Health ([facility]) Public Order signed by [facility] Director My Kumar M.D., regarding the Management of Non-Essential Surgeries and Procedures for the purpose of preserving Personal Protective Equipment (PPE) and critical hospital capacity and resources within [place] went into effect as of 12/02/2019 at 5:00PM. According to the [facility] Public Order: This action will remain in full force and effect until the State of Emergency declared by the Governor no longer exists or the Director of the [facility] rescinds or modifies this Order.. This [facility] order stated all non-essential or elective surgeries and procedures that utilize PPE should be delayed unless there is undue risk to the current or future health of a patient. After reviewing the aforementioned [facility] Public Order and the patients clinical case, I have determined that the scheduled procedure meets the criteria to go forward. Risk to Patient if Procedure Delayed: Risk of rapidly worsening to severe symptoms
--- NOTE | 2019-12-30 11:21 | DCINST_ITS ---
Discharge Diet: No Restrictions, Light diet - advance as tolerated Discharge Activity: Return to Normal Activity, May Not Drive - for 2 days. Additional Activity Instructions:: Please be aware that pain medications may cause nausea. You should typically eat light foods as you take your pain medication. Pain medication may cause constipation, if this is a problem for you, please discuss with your doctor. Allergies/Adverse Reactions: Allergies rosuvastatin [From Crestor] Adverse Reaction (Severe, Verified 12/25/19 10:36) Myalgias and joint pain Medications to take at Discharge Aspirin [Adult Low Dose Aspirin EC] 81 mg PO DAILY 02/17/16 tamsulosin 0.4 mg capsule 0.8 mg PO DAILY cap 10/07/17 Cholecalciferol (Vitamin D3) [Vitamin D3] 2,000 unit PO DAILY 12/25/19 Ezetimibe 10 mg PO QHS 12/25/19 Levothyroxine Sodium [Synthroid] 50 mcg PO DAILY 12/25/19 Metoprolol Succinate [Toprol Xl] 12.5 mg PO DAILY 12/25/19 Ticagrelor [Brilinta] 90 mg PO BID 12/25/19 metFORMIN HCl [Glucophage] 1,700 mg PO DAILY 12/25/19 metFORMIN HCl [Glucophage] 850 mg PO QHS 12/25/19 Ciprofloxacin [Cipro] 500 mg PO BID #6 tab 12/26/19 Hydrocodone/Acetaminophen [[place] 5-325 Tablet] 1 ea PO Q4H PRN PRN 5 Days #20 tab 12/26/19 Primary Care Physician: Raj Chow DO [Primary Care Provider] - Test Results: Test results from this visit will be discussed in further detail at your follow- up appointment, if applicable. Please Follow Up With: Joseph Mora MD When: please call to make an appointment.
[2019-12-30] MEDS: Lubricating Jelly 60 GM Tube 30 GM TOPICAL (11:34)
--- NOTE | 2019-12-30 12:02 | PCM.OPRPT ---
Problem List (1) Obstructing right ureteral calculus stat Status: Acute Report of Operation Date of Procedure: 12/30/19 Pre-Operative Diagnosis: Right obstructing ureteral calculi status post stent Post-Operative Diagnosis: Same Surgery/Procedure Performed:: Cystoscopy, basket extraction of stone, laser lithotripsy, right retrograde pyelogram and stent placement, balloon dilation of the right ureter and right stent placement. Description of Surgical Findings:: Patient presented to the hospital for treatment of a calculus obstructing calculus in proximal right ureter ureter. We discussed how the procedure is done what to expect afterwards he probably will need a stent. We discussed the discomfort that the stent would cause, burning with urination, frequency, urgency, pain in the kidney, blood in the urine. We also discussed the risk of the procedure including bleeding and infection and the risk of anesthesia. We discussed the very rare risk of injury or scar tissue development in the ureter after this procedure. We also discussed the possibility that the stone would not be able to be treated completely and he may need multiple procedures. After discussion with the patient in the preoperative area also I saw the patient in the office discussing the same outcomes the patient signed the consent form, and all the patient's questions were answered. The patient was taken back to the operating room after smooth induction of general anesthesia and the patient was placed supine on the table. We then repositioned the patient in dorsolithotomy position with the legs in stirrups. We made sure all the patient's pressure points were padded. The patient had SCDs on for DVT prophylaxis and was loaded with IV antibiotics prior to the procedure. Imaging was reviewed if available. I went into the bladder with a 21 Indonesian rigid cystoscopy ureteroscopy after gentle dilation of the urethra. The urethra findings werE normal. The prostate findings were slight enlargement. Inside the bladder the trigone was inspected left and right holland of the bladder and posterior and dome of the bladder was inspected and the main findings in the bladder was normal. I then extracted the right stent and used a wire to go up to the ureter then over the wire I performed balloon dilation of the distal ureter with a ureteral balloon dilator, the balloon dilator size was 12 [place]. I then left the wire in place and over the wire I went up with a ureteroscope. I was able to reach the stone successfully and then lasered the stone using a laser fiber and perform laser lithotripsy on the stone until the stone broke up into tiny fragments and used a basket to extract the main fragment. After successful complete lasering of the stone and its fragments then I worked my way out of the ureter and over the wire I then loaded up a stent and advanced a stent up into the right kidney. A retrograde pyelogram was then performed looking at the contrast images to assist in placement of the stent next and confirmed the location of the kidney and the ureter I then pulled on the wire and the stent coiled in the kidney and bladder in good position. I then drained the bladder with the cystoscope the patient's anesthetic was reversed he will be given pain medicine antibiotics and instructions to call the office for an appointment to remove the stent. Patient's anesthetic is being reversed and is taken back to the PACU in stable condition. Type of Anesthesia:: General Drains: stent right side and stent - Admit VTE Documentation VTE Present on Admission: No VTE Mechan Device Prophylaxis: SCD's
[2019-12-30] MEDS: oxyCODONE 5 MG Tablet PO (13:56)
== END 2019-12-30 14:49 | disposition home or self-care (01) ==
LOC: SDC 07:56 → AC 07:56
PROVIDERS: PCP Family Medicine; Referring Provider Urology; Visit Provider Urology
PROC: 0TJ98ZZ Inspection of Ureter, Via Natural or Artificial Opening Endoscopic (ICD-10-PCS; CPT 52352; principal; 2019-12-30 09:50)
DX: N20.1 Calculus of ureter (principal); I25.2 Old myocardial infarction; E78.5 Hyperlipidemia, unspecified; I25.10 Atherosclerotic heart disease of native coronary artery without angina pectoris; Z79.82 Long term (current) use of aspirin; Z79.84 Long term (current) use of oral hypoglycemic drugs; N40.0 Benign prostatic hyperplasia without lower urinary tract symptoms; M19.90 Unspecified osteoarthritis, unspecified site; E03.9 Hypothyroidism, unspecified; G47.33 Obstructive sleep apnea (adult) (pediatric); E11.9 Type 2 diabetes mellitus without complications; Z87.891 Personal history of nicotine dependence
CPT/HCPCS: 52356; 76000; 82360; 82962; 88300; J7120; C1758; C1769; C2617; J2405

== ENCOUNTER 2020-01-26 08:36 | Emergency (ER) | payer MEDICARE, OTHER, SELFPAY ==
[2019-12-30 08:17] VITALS: BMI 25.7
[2020-01-26 08:37] VITALS: BP 153/73; PULSE 104; RESP 18; TEMP 36.8; O2SAT 95; BMI 26.5
--- NOTE | 2020-01-26 08:49 | ED.DCSUM_ITS ---
History of Present Illness Chief Complaint: Rash Informant: Patient Onset: Days Context: Gradual Onset Timing: Continuous Current Severity: Moderate Maximum Severity: Moderate Narrative: The patient is a 74-year-old male with history of osteoarthritis, hypertension, and hyperlipidemia that presents to the emergency department with left buttock and thigh pain. The patient states he had pain for about 2 days. He states last night, he noticed a rash. He states the rash almost feels like burning. It involves his left buttock area and down into his perineum. He denies any history of immunosuppression. He denies any fevers or chills. He has not taken anything to improve the symptoms. He states he is otherwise been in his normal state of health. Prior similar symptoms: No Recent Illness/Hospitalization: No Past Medical History - Allergies and Home Meds Allergies/Adverse Reactions: Allergies rosuvastatin [From Crestor] Adverse Reaction (Severe, Verified 01/26/20 08:40) Myalgias and joint pain Primary Care Physician: Raj Chow DO [Primary Care Provider] - Prior records reviewed: Yes Past Medical History: - - Diabetes, hypertension, hyperlipidemia Surgical History: - - Clavical repair and plating, hemmorroidectomy, H-plyoria, septoplasty. Cardiac stents Smoking Status: Former smoker Review of Systems General: Denies: Chills, Fever, Sweats Eyes: Denies: Visual changes - bilaterally, Diplopia ENT: Denies: Rhinorrhea, Sore throat Cardiovascular: Denies: Chest pain, Palpitations Respiratory: Denies: Dyspnea, Cough, Dyspnea on exertion Gastrointestinal: Denies: Abdominal pain, Nausea, Vomiting, Diarrhea, Melena, Hematochezia Genitourinary: Denies: Dysuria, Hematuria, Frequency Musculoskeletal: Reports: Myalgias. Denies: Back pain, Extremity Pain Skin: Reports: Rash. Denies: Wounds Neurological: Denies: Headache, Weakness, Numbness Physical Exam Vital Signs/Narrative: Vital Signs Temp Pulse Resp BP Pulse Ox 01/26/20 08:37 98.2 F 104 H 18 153/73 H 95 Inital Vital Signs reviewed: Yes General: Well nourished, Well developed, No Acute Distress Head: Normocephalic, Atraumatic Eyes: Perrl, EOMI ENT: Moist mucous membranes, No rhinorrhea Neck: Supple, Nontender Cardiovascular: Regular rate, Regular rhythm, No murmurs Respiratory: No distress, CTA bilaterally, Chest nontender Abdomen: Soft, Nontender, Nondistended, Normal bowel sounds Back: Nontender, Normal Inspection Extremities: Nontender, No edema Skin: Normal color, Rash - Patient has vesicular rash along the S4 dermatome of the left. There is no cellulitis or streaking. There is minimal crusting. Pulses of the lower extremity are normal. Neurological: Alert, Oriented x3, Cranial nerves II-XII grossly intact, Normal Strength, Normal Sensation Psychological: Normal affect, Normal Mood Diagnostic/Tx/Re-eval - Medical Decision Making The patient presents with a primary zoster outbreak. There is no evidence of cellulitis. The patient is diabetic, but not insulin-dependent. He will be treated with antivirals, prednisone, and analgesics. He was counseled on local wound care, signs of infection, and reasons to return. He will follow-up with his primary care in 48 hours for skin recheck or return with any worsening symptoms. Impression 1. Shingles left buttock ED Disposition - Plan for ED Patient: Instructions: ED Shingles Prescriptions: Prednisone [Deltasone] 40 mg PO DAILY #10 tab Prescription Printed Hydrocodone Bitart/Apap 5-325 [[place] 5MG-325MG] 1 tab PO Q6H PRN PRN 3 Days #10 tab PRN Reason: Pain Prescription Printed Valacyclovir HCl [Valacyclovir] 1,000 mg PO TID #21 tab Prescription Printed Referrals: Raj Chow DO [Primary Care Provider] - 2 Days for wound check
== END 2020-01-26 10:12 | disposition home or self-care (01) ==
LOC: ED 08:59
PROVIDERS: Emergency Provider Emergency Medicine; PCP Family Medicine
DX: B02.9 Zoster without complications (principal); E11.9 Type 2 diabetes mellitus without complications; Z87.891 Personal history of nicotine dependence
CPT/HCPCS: 99282

== ENCOUNTER → 2020-02-16 08:08 | Outpatient (CLI) | payer MEDICARE, OTHER, SELFPAY ==
[2019-05-04 14:43] VITALS: BMI 27.4
[2020-01-26 08:37] VITALS: BMI 26.5
[2020-02-16 12:15] LABS: Absolute Neutrophil Count 2.6 X10^3/uL (2.0-7.7); Basophil# 0.04 X10^3/uL; Eosinophil# 0.19 X10^3/uL; Eosinophils% 4.6 % (0-5); Hematocrit 40.7 % (40-54); Hemoglobin 12.6 g/dL (13.0-16.5); Mean Corpuscular Hgb 28.4 pg (27.0-32.0); Mean Corpuscular Volume 91.7 fL (80-94); Mean Platelet Vol. 10.2 fl (6.2-12.0); Monocyte# 0.34 X10^3/uL; Monocyte% 8.3 % (0-10); NRBC Flagged by Analyzer 0 % (0-5); Neutrophil # 2.61 X10^3/uL (2.7-7.7); Neutrophil % 63.6 % (47-70); Platelet Count 233 K/mm3 (150-450); RBC Distribution Width CV 14.8 % (11.6-14.6); RBC Distribution Width SD 48.7 fl (35.1-43.9); Red Blood Count 4.44 M/mm3 (4.6-6.2); White Blood Count 4.1 K/mm3 (4.4-11.0)
[2020-02-16 13:06] LABS: AST(SGOT) 13 U/L (15-37); Alanine Aminotransfer ALT/SGPT 22 U/L (16-61); Albumin, Serum 3.6 g/dL (3.2-5.0); Alkaline Phosphatase 61 U/L (45-117); Anion Gap 7 (5-15); BUN 24 mg/dL (7-18); BUN/Creat Ratio 16.8 RATIO (10-20); Calcium,Total 8.9 mg/dL (8.5-10.1); Chloride 106 mmol/L (98-107); Cholesterol 216 mg/dL (200); Creatinine, Serum 1.43 mg/dL (0.70-1.30); EST Glomerular Filtration Rate 52 mL/min (>60); Est Glom Filt Rate - Afr Amer 62 mL/min (>60); Globulin 3.5 g/dL (2.2-4.2); Glucose 100 mg/dL (74-106); High Density Lipoprotein 65 mg/dL; Potassium 4.1 mmol/L (3.5-5.1); Protein, Total 7.1 g/dL (6.4-8.2); Sodium Level 142 mmol/L (136-145); Thyroid Stim Hormone (TSH) 1.44 uIU/mL (0.358-3.74); Triglycerides 68 mg/dL; Very Low Density Lipoprotein 14 mg/dL (5-40)
[2020-02-16 13:08] LABS: Hemoglobin A1c 6.3 % (3.8-5.6)
== END ==
PROVIDERS: Internal Medicine Rheumatology; Family Provider Family Medicine; PCP Family Medicine; Visit Provider Family Medicine
DX: E11.9 Type 2 diabetes mellitus without complications (principal); I25.10 Atherosclerotic heart disease of native coronary artery without angina pectoris; I12.9 Hypertensive chronic kidney disease with stage 1 through stage 4 chronic kidney disease, or unspecified chronic kidney disease; N18.3 Chronic kidney disease, stage 3 (moderate); E03.9 Hypothyroidism, unspecified; M16.0 Bilateral primary osteoarthritis of hip; M47.897 Other spondylosis, lumbosacral region; M25.551 Pain in right hip; E78.5 Hyperlipidemia, unspecified; N40.1 Benign prostatic hyperplasia with lower urinary tract symptoms
CPT/HCPCS: 36415; 80053; 80061; 83036; 84443; 85025

== ENCOUNTER 2020-05-05 08:30 | Outpatient (RCR) | payer MEDICARE, OTHER, SELFPAY ==
--- NOTE | 2020-02-17 10:11 | HP.PTEVAL_ITS ---
Patient's Visit Information KIMBERLEY YOUNG is a 74 year old M referred to Physical Therapy by Dr. Meir Willis DPM with a diagnosis of Bilateral Plantar Fascitis. Date of Evaluation: 02/17/20 Physical Therapist: Ines Llamas DPT - Visit Plan Frequency: 3x /Week Duration: 3 Weeks Plan: Ultrasound and Manual STM to bilateral plantar fascia with stretching and eccentric gastroc. - Subjective Patient reports that he has pain in both foot which has been going on for a few years but its getting worse. Went and saw Dr. Willis who took x-rays and reports that he has bone spurs and flat feet. The pain is worse in the mornings- but he has a night splint that he is wearing. He has OA throughout and sees Dr. Negrete. Reports that he has pain the heel and also in the ball of the foot. Left is worse than the right. Worst: 7/10 Agg: getting up in the AM and then when walking long distances. He is wearing orthotics in his shoes and he plans to get a new pair of shoes through Dr. Willis. Best: 0/10. Eases: patches. Does not have a ice or stretch routine. Describes the pain as dull and achy and sharp/shooting. No N/T in the LE. Has had x-rays but no MRI. Has been tested for neuropathy but they have been negative. Walks but not a lot- likes to read. Was coming here to work out but he did not have the energy to continue due to medication. Sleep: disturbed- hard to get comfortable. PMHx/Meds: in chart. - Objective Posture: Fh, RS, increased kyphosis- can correct but is unable to maintain. Gait: no deviation noted- good arm swing and trunk rotation- moderate pes planus in shoes. HR/TR:able no pain with UE A. SLS: unable to remove hands from wall. Palpation: tender along plantar fascia bilaterally from heel to insertion- moderate crepetis left>right. ROM: Left: DF: 5 degrees, PF: 30 degrees, Inver: 30 degrees, Ever: 10 degrees. Right: DF: 3 degrees, PF: 60 degrees, Ever: 15 degrees Inver: 35 degrees. Strength: 5/5 throughout. Flex: Gastroc: Severe, Soleus: moderate Hamstring: severe - Goals Goal 1:: Patient will be I with HEP and progression Goal Time Frame: 4-6 Weeks Goal 2:: Patient will demo 10 degrees of ROM in DF bilaterally Goal Time Frame: 4-6 Weeks Goal 3:: Patient will report 0/10 pain in the feet for 1 week Goal Time Frame: 4-6 Weeks Goal 4:: Patient will SLS for 5 sec without LOB - Rehabilitation Potential Physical Therapy Diagnosis: Patient presents with hypomobility- he has decreased ROM, strength and flexibility leading to Rehabilitation Potential: Fair - Anticipated Interventions Patient/Client Instruction: Educate patient on: Benefits of Fitness Program Therapeutic Exercise to Include: Strength training, Endurance training, Balance training, Body mechanics, Postural training, Flexibilty training, Gait and locomotor training, Neuromotor development, Passive ROM, Active ROM For the Purpose of:: To improve muscle performance and motor function Manual Therapy Techniques to Include: Passive ROM, Functional dry needling, Soft tissue mobilization For the Purpose of:: To improve nutrient delivery to tissue IF ES: Yes Cryotherapy (ice pack, ice massage): Yes Thermo therapy (hot pack): Yes Ultrasound (thermal/non thermal): Yes For the Purpose of:: To improve nutrient delivery to tissue Thank you for the opportunity to evaluate your patient. For Medicare and Medicare HMO plans, please review the plan of care and approve it. It will need to be FAXED BACK to us at [phone] for Medicare purposes. For Medicare only, by signing this I certify the plan of care. Please let me know if there are questions or concerns regarding this plan of care. Physician Signature: Date:
--- NOTE | 2020-03-09 10:54 | HP.PTREVAL ---
Dr. Meir Willis, DPM, It has been my pleasure to treat KIMBERLEY YOUNG over the last 8 visits for Bilateral Plantar Fascitis. Please see the progress note below for an update on the physical therapy plan of care! Subjective: Patient reports that her bottom of his feet are better- he is back to walking without pain. Would like to place himself on hold for a few weeks and see how he does in a few weeks. Has his orthotics now and is now trying to break them in Objective/Function: Posture: Fh, RS, increased kyphosis- can correct but is unable to maintain. Gait: no deviation noted- good arm swing and trunk rotation. HR/TR:able no pain with UE A. SLS: 10 seconds. Palpation: not tender to touch. ROM: Left: DF: 10 degrees, PF: 50 degrees, Inver: 30 degrees, Ever: 10 degrees. Right: DF: 8 degrees, PF: 60 degrees, Ever: 15 degrees Inver: 35 degrees. Strength: 5/5 throughout. Flex: Gastroc: Mod, Soleus: moderate Hamstring: Mod Plan Plan: Hold 3 weeks then follow up after does his HEP Goals Goal 1:: Patient will be I with HEP and progression Goal Time Frame: 4-6 Weeks Goal Progress: Goal Met Goal 2:: Patient will demo 10 degrees of ROM in DF bilaterally Goal Time Frame: 4-6 Weeks Goal Progress: Progressing Goal 3:: Patient will report 0/10 pain in the feet for 1 week Goal Time Frame: 4-6 Weeks Goal Progress: Goal Met Goal 4:: Patient will SLS for 5 sec without LOB Goal Progress: Goal Met Anticipated Interventions Patient/Client Instruction: Educate patient on: Benefits of Fitness Program Therapeutic Exercise to Include: Strength training, Endurance training, Balance training, Body mechanics, Postural training, Flexibilty training, Gait and locomotor training, Neuromotor development, Passive ROM, Active ROM For the Purpose of:: To improve muscle performance and motor function Manual Therapy Techniques to Include: Passive ROM, Functional dry needling, Soft tissue mobilization For the Purpose of:: To improve nutrient delivery to tissue IF ES: Yes Cryotherapy (ice pack, ice massage): Yes Thermo therapy (hot pack): Yes Ultrasound (thermal/non thermal): Yes For the Purpose of:: To improve nutrient delivery to tissue Please do not hesitate to contact me at [phone] by phone or if you have questions or concerns regarding this new plan of care! Sincerely, RANDA PlattT
--- NOTE | 2020-06-13 14:39 | HP.PTDCSUM ---
It has been my pleasure to treat KIMBERLEY YOUNG referred by Dr. Meir Willis DPM, with the diagnosis of Bilateral Plantar Fascitis for a total of 17 visit(s). Discharge Date: Please see the following information for a summary of their discharge status. Subjective: Still about the same. Mildly sore currently but increases with more activity. BLAT feet Pain Intensity (Out of 10): 4 % Improvement: 75 Objective/Function: Kimberley hasn't seemed to make signifcant progress with treatment interventions. Pain still local to left heel and increases or decreases based on activity. Goal 1:: Patient will be I with HEP and progression Goal Progress: Goal Met Goal 2:: Patient will demo 10 degrees of ROM in DF bilaterally Goal Progress: Progressing Goal 3:: Patient will report 0/10 pain in the feet for 1 week Goal Progress: Goal Met Goal 4:: Patient will SLS for 5 sec without LOB Goal Progress: Goal Met Plan: Re-assess with Ines Llamas DPT. ELR: hold secondary to patient have EPAT- will reassess as needed If there are questions or concerns regarding this patient's physical therapy, please feel free to call me at [phone]. Thank you for the referral of this patient. Sincerely, Ines Llamas DPT
== END 2020-05-05 19:00 | disposition home or self-care (01) ==
LOC: PT 08:30
PROVIDERS: PCP Family Medicine; Referring Provider Podiatrist; Visit Provider Podiatrist
DX: M72.2 Plantar fascial fibromatosis (principal); M77.42 Metatarsalgia, left foot; M77.41 Metatarsalgia, right foot
CPT/HCPCS: 97035; 97110; 97140; 97162; 97164

== ENCOUNTER 2020-05-21 10:00 | Emergency (ER) | payer MEDICARE, OTHER, SELFPAY ==
[2020-05-21 10:01] VITALS: BP 132/93; PULSE 88; RESP 19; TEMP 36.3; O2SAT 96; BMI 26.1
--- NOTE | 2020-05-21 10:16 | ED.VIS.GEN ---
History of Present Illness Chief Complaint: Flank Pain Informant: Patient Onset: Weeks Context: Gradual Onset Timing: Intermittent Current Severity: Mild Maximum Severity: Severe Narrative: 69-year-old male with PMH HTN, HLD, DM2, CAD s/p stents, multiple kidney stones presents with complaints of right flank/right upper quadrant abdominal pain that has been intermittent for the last month. Pain is colicky and can be worse with bending over or deep breathing. Pain worsened yesterday. He thinks this may be a kidney stone although previously with these his pain was lower. Denies fevers, chills, nausea, vomiting, dysuria, hematuria, or diarrhea. He had to have lithotripsy for kidney stones earlier this year. Past Medical History - Allergies and Home Meds Allergies/Adverse Reactions: Allergies rosuvastatin [From Crestor] Adverse Reaction (Severe, Verified 05/21/20 10:03) Myalgias and joint pain Primary Care Physician: Raj Chow DO [Primary Care Provider] - Surgical History: - - Clavical repair and plating, hemmorroidectomy, H-plyoria, septoplasty. Cardiac stents Smoking Status: Never smoker Physical Exam Vital Signs/Narrative: Vital Signs Temp Pulse Resp BP Pulse Ox 05/21/20 10:01 97.4 F L 88 19 H 132/93 H 96 ED Disposition - Plan for ED Patient: Referrals: Raj Chow DO [Primary Care Provider] -
--- NOTE | 2020-05-21 10:18 | CT_ITS ---
STUDY: CT ABDOMEN AND PELVIS WITHOUT CONTRAST REASON FOR EXAM: Male, 74 years old. RIGHT FLANK PAIN -- HX-KIDNEY STONES, TX,CAD,HEART STENT,HTN RADIATION DOSAGE (If Supplied By Facility): CTDIvol = ( 8.72 ) mGy, DLP = ( 459.69 ) mGycm TECHNIQUE: Transaxial images were obtained from the dome of the diaphragm to the symphysis pubis without oral contrast, and without intravenous contrast. Sagittal and coronal images were reconstructed. Individualized dose optimization techniques were used for this CT. COMPARISON: 12/25/2019 FINDINGS: The visualized lung bases are unremarkable. There is atherosclerosis of the coronary arteries. Lung bases are unremarkable. Normal liver. Normal gallbladder and extrahepatic biliary system. Normal spleen. Normal pancreas. Normal bilateral adrenal glands. Normal right kidney. Normal left kidney. Normal visualized stomach. Normal small intestine. Normal colon. The appendix is visualized and appears normal. Normal abdominal aorta. Normal inferior vena cava. Normal retroperitoneum. Nondistended urinary bladder. Prostate is enlarged with metallic beads, new since the prior study. There are a few scattered calcifications. Normal abdominal wall. There are diffuse degenerative changes of the visualized lumbar spine and bilateral hips. Grade 1 spondylolisthesis of L5-S1 due to bilateral pars interarticularis defects. CT/Abdomen/Pelvis without Cont IMPRESSION: 1. No hydronephrosis or urinary tract calcifications. 2. Prostatomegaly. New prostatic metallic implants, correlate with history. Electronically Signed: Philippe Andres MD ([place]) at 11:36 EDT , Service support ,
[2020-05-21 10:26] LABS: Absolute Lymphocyte Count 1.05 X10^3/uL (0.83-4.51); Absolute Neutrophil Count 3.3 X10^3/uL (2.0-7.7); Basophil# 0.04 X10^3/uL; Basophil% 0.8 % (0-1); Eosinophil# 0.13 X10^3/uL; Eosinophils% 2.7 % (0-5); Hematocrit 41.7 % (40-54); Hemoglobin 13.6 g/dL (13.0-16.5); Lymphocyte # 1.05 X10^3/ul (4.0); Lymphocyte % 21.5 % (19-41); Mean Corp Hgb Conc 32.6 g/dL (32-36); Mean Corpuscular Hgb 29.7 pg (27.0-32.0); Mean Platelet Vol. 10.2 fl (6.2-12.0); Monocyte# 0.36 X10^3/uL; Monocyte% 7.4 % (0-10); NRBC Flagged by Analyzer 0 % (0-5); Neutrophil # 3.27 X10^3/uL (2.7-7.7); Platelet Count 230 K/mm3 (150-450); RBC Distribution Width CV 13.5 % (11.6-14.6); RBC Distribution Width SD 45.2 fl (35.1-43.9); Red Blood Count 4.58 M/mm3 (4.6-6.2); White Blood Count 4.9 K/mm3 (4.4-11.0)
[2020-05-21 10:32] LABS: Bacteria 0 SEEN /hpf (None Seen); Color, Urine Yellow (Yellow); Glucose, Dipstick Normal (Normal); Ketone-Dipstick Negative (Negative); Leukocyte Esterase-Dipstick Negative /ul (Negative); Mucous, Urine 0 SEEN /hpf (<or=2+); Nitrite-Dipstick Negative (Negative); Occult Blood-Urine 10 /ul (Negative); Protein-Dipstick Negative (Negative); Red Blood Cells-Urine 0 SEEN /hpf (0-5); Specific Gravity, Urine 1.005 (1.002-1.030); Squamous Epithelial Cells - UA 0 SEEN /hpf (0-5); Urine Bilirubin Dipstick Negative (Negative); Urine Clarity Clear (Clear); Urine Urobilinogen Normal (Normal); White Blood Cells 0 SEEN /hpf (0-5)
[2020-05-21 10:40] LABS: AST(SGOT) 17 U/L (15-37); Alanine Aminotransfer ALT/SGPT 22 U/L (16-61); Albumin, Serum 3.9 g/dL (3.2-5.0); Alkaline Phosphatase 60 U/L (45-117); Anion Gap 4 (5-15); BUN 20 mg/dL (7-18); BUN/Creat Ratio 12.4 RATIO (10-20); Chloride 104 mmol/L (98-107); Creatinine, Serum 1.61 mg/dL (0.70-1.30); EST Glomerular Filtration Rate 45 mL/min (>60); Est Glom Filt Rate - Afr Amer 54 mL/min (>60); Estimated Creatinine Clearance 42.19 ml/min; Globulin 3.8 g/dL (2.2-4.2); Glucose 180 mg/dL (74-106); Lipase 118 U/L (73-393); Potassium 4.1 mmol/L (3.5-5.1); Protein, Total 7.7 g/dL (6.4-8.2); Sodium Level 138 mmol/L (136-145)
--- NOTE | 2020-05-21 10:46 | EKG12_ITS ---
Test Reason : FLANK PAIN Blood Pressure : / mmHG Vent. Rate : 077 BPM Atrial Rate : 077 BPM P-R Int : 176 ms QRS Dur : 092 ms QT Int : 356 ms P-R-T Axes : 031 016 058 degrees QTc Int : 402 ms Normal sinus rhythm Normal ECG Confirmed by LENORA ROMERO, YOLANDE ([id number]), video effects editor MARIS JOYA ([id number]) on 05/25/2020 10:01:05 AM Referred By: Confirmed By:YOLANDE COOLEY MD
--- NOTE | 2020-05-21 10:47 | RAD_ITS ---
STUDY: X-RAY CHEST REASON FOR EXAM: Male, 74 years old. right side flank pain TECHNIQUE: AP COMPARISON: None. FINDINGS: Lungs are underexpanded with mild bibasilar atelectasis but no airspace consolidation. There is no demonstrated pleural abnormality. Normal size heart. Normal mediastinum and carlton. Normal visualized pulmonary arteries. Normal visualized aortic arch and descending thoracic aorta. Normal visualized thoracic spine. Fusion hardware of the left clavicle noted. There is no demonstrated abnormality of the visualized soft tissue structures of the upper abdomen. RAD/Chest 1 View (Portable) IMPRESSION: 1. Hypoinflation with bibasilar atelectasis. No airspace consolidation. Electronically Signed: Philippe Andres MD ([place]) at 11:22 EDT , Service support ,
--- NOTE | 2020-05-21 11:48 | ED.VISSUMM ---
- ER Visit Summary Date of Service: 05/21/20 Chief Complaint: [Abdominal pain] History of Present Illness: The patient is a 74 M [] Physical Examination: [ CONST: No acute distress, alert EYES: Normal inspection ENT: Normal inspection, pharynx normal, no signs of dehydration NECK: Normal inspection RESP: Chest nontender, no respiratory distress, normal breath sounds CVS: Regular rate and rhythm, no murmur, no gallop [irregularly irregular rhythm, tachycardia, bradycardia] ABD: Nontender, no organomegaly, normal bowel sounds, no distention SKIN: Color normal, no rash, warm, dry, intact EXTREMITIES: normal appearance, nontender, no pedal edema NEURO: Oriented x4 PSYCH:] Test Results: [ Clinical Impression(s) from Imaging Studies Abdomen/Pelvis CT 05/21/20 10:18 IMPRESSION: 1. No hydronephrosis or urinary tract calcifications. 2. Prostatomegaly. New prostatic metallic implants, correlate with history. Electronically Signed: Philippe Andres MD ([place]) at 11:36 EDT , Service support , Chest X-Ray 05/21/20 10:47 IMPRESSION: 1. Hypoinflation with bibasilar atelectasis. No airspace consolidation. Electronically Signed: Philippe Andres MD ([place]) at 11:22 EDT , Service support , Laboratory Data 05/21/20 05/21/20 05/21/20 10:10 10:10 10:10 WBC 4.9 RBC 4.58 L Hgb 13.6 Hct 41.7 MCV 91.0 MCH 29.7 MCHC 32.6 RDW Std Deviation 45.2 H RDW Coeff of Denilson 13.5 Plt Count 230 MPV 10.2 Immature Gran % (Auto) 0.600 Neut % (Auto) 67.0 Lymph % (Auto) 21.5 [place] % (Auto) 7.4 Eos % (Auto) 2.7 Baso % (Auto) 0.8 Absolute Neuts (auto) 3.3 Absolute Lymphs (auto) 1.05 Nucleated RBC % 0 Sodium 138 Potassium 4.1 Chloride 104 Carbon Dioxide 30.0 Anion Gap 4 L BUN 20 H Creatinine 1.61 H Estim Creat Clear Calc 42.19 Est GFR (MDRD) Af Amer 54 L Est GFR (MDRD) Non-Af 45 L BUN/Creatinine Ratio 12.4 Glucose 180 H Calcium 9.0 Total Bilirubin 0.40 AST 17 ALT 22 Alkaline Phosphatase 60 Troponin I < 0.015 Total Protein 7.7 Albumin 3.9 Globulin 3.8 Albumin/Globulin Ratio 1.0 Lipase 118 Urine Color Urine Clarity Urine pH Ur Specific [place] Urine Protein Urine Glucose (UA) Urine Ketones Urine Occult Blood Urine Nitrite Urine Bilirubin Urine Urobilinogen Ur Leukocyte Esterase Urine RBC Urine WBC Ur Squamous Epith Cells Urine Bacteria Urine Mucus 05/21/20 10:27 WBC RBC Hgb Hct MCV MCH MCHC RDW Std Deviation RDW Coeff of Denilson Plt Count MPV Immature Gran % (Auto) Neut % (Auto) Lymph % (Auto) [place] % (Auto) Eos % (Auto) Baso % (Auto) Absolute Neuts (auto) Absolute Lymphs (auto) Nucleated RBC % Sodium Potassium Chloride Carbon Dioxide Anion Gap BUN Creatinine Estim Creat Clear Calc Est GFR (MDRD) Af Amer Est GFR (MDRD) Non-Af BUN/Creatinine Ratio Glucose Calcium Total Bilirubin AST ALT Alkaline Phosphatase Troponin I Total Protein Albumin Globulin Albumin/Globulin Ratio Lipase Urine Color Yellow Urine Clarity Clear Urine pH 7.0 Ur Specific [place] 1.005 Urine Protein Negative Urine Glucose (UA) Normal Urine Ketones Negative Urine Occult Blood 10 H Urine Nitrite Negative Urine Bilirubin Negative Urine Urobilinogen Normal Ur Leukocyte Esterase Negative Urine RBC 0 SEEN Urine WBC 0 SEEN Ur Squamous Epith Cells 0 SEEN Urine Bacteria 0 SEEN Urine Mucus 0 SEEN ] Emergency Department Course and Treatment: [Patient has right upper quadrant abdominal pain/ flank pain intermittently for the last month. He appears well and nontoxic. Vital signs within normal limits. Abdominal exam is benign. Chest x-ray and cardiac work-up negative. Labs normal. Urinalysis has small amount of blood. CT abdomen/pelvis shows no acute process and no stone or hydronephrosis. Patient may have passed a stone yesterday as his pain today is minimal. Discussed return precautions.] Treatment Plan: [Follow up with PCP in 3 to 5 days] Disposition: [Discharged home in stable condition] Impression: [Right upper quadrant abdominal pain of unknown etiology] Kylah DURAND This note was generated with [employer] dictation software. It may contain incorrect words, spelling, and punctuation that were not noted in review of the chart prior to signing <Kylah Browning - Last Filed: 05/21/20 11:56> - ER Visit Summary Date of Service: 05/24/20 Patient evaluated independently and in conjunction with physician administrative sales assistant. Agree with note above unless documented otherwise. Patient is evaluated for 1 month of intermittent right flank/right upper quadrant abdominal pain. Seems to be worse with deep breathing and movements however patient does have a history of kidney stones and has required instrumentation in the past so is worried that this might be the cause of his pain. Notes the pain was especially bad last night. The exam is benign. He is well-appearing. Signs are normal. He has equal pulses in extremities. I do not think this is a AAA or dissection given the length of his symptoms. CT with IV and contrast is obtained of the abdomen and pelvis which does not show any acute process. Patient has not been a creatinine with us appears to be his baseline. Patient is counseled exact cause of his pain is not clear. It is possible that he passed a stone however I do not see any concrete evidence of that either. He will follow-up with primary care doctor as well as urology. <Pati Pham - Last Filed: 05/24/20 23:48> ED Disposition <Kylah Browning - Last Filed: 05/21/20 11:56> <Pati hPam - Last Filed: 05/24/20 23:48> - Plan for ED Patient: Disposition: Home or Assisted Living Diagnosis: RUQ abdominal pain Instructions: ED Flank Pain Uncertain Cause Referrals: Raj Chow DO [Primary Care Provider] -
[2020-05-21 12:10] VITALS: BP 121/86; PULSE 66; RESP 17; RESP 18; O2SAT 96
== END 2020-05-21 12:11 | disposition home or self-care (01) ==
PROVIDERS: Emergency Provider Physician Assistant; PCP Family Medicine
DX: R10.11 Right upper quadrant pain (principal); I25.10 Atherosclerotic heart disease of native coronary artery without angina pectoris; Z95.5 Presence of coronary angioplasty implant and graft; Z87.442 Personal history of urinary calculi
CPT/HCPCS: 71045; 74176; 80053; 81001; 83690; 84484; 85025; 93005; 99283; A4216

== ENCOUNTER → 2020-05-24 08:34 | Outpatient (CLI) | payer MEDICARE, OTHER, SELFPAY ==
[2020-05-21 10:01] VITALS: BMI 26.1
[2020-05-24 12:26] LABS: Absolute Lymphocyte Count 1.04 X10^3/uL (0.83-4.51); Absolute Neutrophil Count 3.2 X10^3/uL (2.0-7.7); Basophil# 0.05 X10^3/uL; Eosinophil# 0.17 X10^3/uL; Eosinophils% 3.5 % (0-5); Hematocrit 40.4 % (40-54); Hemoglobin 12.9 g/dL (13.0-16.5); Lymphocyte # 1.04 X10^3/ul (4.0); Lymphocyte % 21.3 % (19-41); Mean Corp Hgb Conc 31.9 g/dL (32-36); Mean Corpuscular Hgb 29.3 pg (27.0-32.0); Mean Corpuscular Volume 91.8 fL (80-94); Mean Platelet Vol. 10.4 fl (6.2-12.0); Monocyte% 8.2 % (0-10); NRBC Flagged by Analyzer 0 % (0-5); Neutrophil # 3.21 X10^3/uL (2.7-7.7); Neutrophil % 65.6 % (47-70); Platelet Count 233 K/mm3 (150-450); RBC Distribution Width CV 13.8 % (11.6-14.6); RBC Distribution Width SD 47.3 fl (35.1-43.9); White Blood Count 4.9 K/mm3 (4.4-11.0)
[2020-05-24 12:41] LABS: ALB/GLOB Ratio 1.1 RATIO (0.9-2.4); AST(SGOT) 15 U/L (15-37); Alanine Aminotransfer ALT/SGPT 21 U/L (16-61); Albumin, Serum 3.7 g/dL (3.2-5.0); Alkaline Phosphatase 61 U/L (45-117); Anion Gap 3 (5-15); BUN 26 mg/dL (7-18); BUN/Creat Ratio 17.6 RATIO (10-20); Calcium,Total 8.8 mg/dL (8.5-10.1); Chloride 108 mmol/L (98-107); Creatinine, Serum 1.48 mg/dL (0.70-1.30); EST Glomerular Filtration Rate 49 mL/min (>60); Est Glom Filt Rate - Afr Amer 60 mL/min (>60); Globulin 3.3 g/dL (2.2-4.2); Glucose 99 mg/dL (74-106); Sodium Level 141 mmol/L (136-145)
== END ==
PROVIDERS: PCP Family Medicine; Visit Provider Internal Medicine Rheumatology
DX: M06.4 Inflammatory polyarthropathy (principal); M16.0 Bilateral primary osteoarthritis of hip; M47.897 Other spondylosis, lumbosacral region; M72.2 Plantar fascial fibromatosis; I10 Essential (primary) hypertension; E11.9 Type 2 diabetes mellitus without complications; I25.10 Atherosclerotic heart disease of native coronary artery without angina pectoris; E03.9 Hypothyroidism, unspecified; E78.5 Hyperlipidemia, unspecified; N40.1 Benign prostatic hyperplasia with lower urinary tract symptoms
CPT/HCPCS: 36415; 80053; 85025

== ENCOUNTER → 2020-05-27 07:35 | Outpatient (CLI) | payer MEDICARE, OTHER, SELFPAY ==
[2020-05-21 10:01] VITALS: BMI 26.1
[2020-05-27 08:43] LABS: AST(SGOT) 14 U/L (15-37); Alanine Aminotransfer ALT/SGPT 17 U/L (16-61); Albumin, Serum 3.6 g/dL (3.2-5.0); Alkaline Phosphatase 50 U/L (45-117); Bilirubin, Direct 0.11 mg/dL (0.00-0.30); Cholesterol 185 mg/dL (200); Globulin 3.3 g/dL (2.2-4.2); High Density Lipoprotein 52 mg/dL; Protein, Total 6.9 g/dL (6.4-8.2); Triglycerides 118 mg/dL; Very Low Density Lipoprotein 24 mg/dL (5-40)
== END ==
PROVIDERS: PCP Family Medicine; Referring Provider Internal Medicine Cardiovascular Disease; Visit Provider Internal Medicine Cardiovascular Disease
DX: E78.00 Pure hypercholesterolemia, unspecified (principal); E78.5 Hyperlipidemia, unspecified
CPT/HCPCS: 36415; 80061; 80076

== ENCOUNTER → 2020-06-07 09:28 | Outpatient (CLI) | payer MEDICARE, OTHER, SELFPAY ==
[2020-05-21 10:01] VITALS: BMI 26.1
[2020-06-02 08:12] VITALS: BMI 26.4
--- NOTE | 2020-06-07 09:37 | MRI_ITS ---
STUDY: MRI LEFT REARFOOT WITHOUT CONTRAST REASON FOR EXAM: Male, 74 years old. plantar fascitis lt heel TECHNIQUE: Standardized fat and water weighted pulse sequences were obtained in all 3 orthogonal planes. COMPARISON: None. FINDINGS: Mild chronic plantar fascial thickening with high-grade partial-thickness insertional tear (sagittal image 11 series 3). Region of tear measures approximately 1.7 cm x 1.7 cm. Tiny plantar spur. Tiny Achilles tendon enthesophyte. Trace posterior tibialis and flexor tenosynovitis. Normal peroneus longus and brevis tendons. Normal tibialis anterior tendon. Normal extensor hallucis longus tendon. Normal extensor digitorum longus tendons. Normal distal tibiofibular syndesmotic ligamentous complex. Normal lateral ligamentous complex. Normal subtalar ligaments and sinus tarsi. Normal deltoid ligamentous complexes. Normal plantar calcaneonavicular (spring) ligament. Normal Lisfranc ligament. Normal tibiotalar articulation. Normal talar dome. Minimal subtalar arthrosis. Mild talonavicular arthrosis. Normal calcaneocuboid articulation. Normal navicular-cuneiform articulations. No acute fracture. No acute dislocation. No acute bone destruction. Mild soft tissue swelling with small volume tibiotalar/subtalar joint effusion. MRI/Lower Ext/No Jt/w/o IMPRESSION: Mild chronic plantar fascial thickening with high-grade partial-thickness insertional tear Tiny plantar spur and tiny Achilles enthesophyte Trace PTT and flexor tenosynovitis Mild soft tissue swelling with small volume tibiotalar/subtalar joint effusion Mild osteoarthritic features Electronically Signed: Karlos Dela Cruz DO at 13:14 EDT Tel , Service support ,
== END ==
PROVIDERS: PCP Family Medicine; Referring Provider Podiatrist; Visit Provider Podiatrist
DX: M72.2 Plantar fascial fibromatosis (principal)
CPT/HCPCS: 73718

== ENCOUNTER → 2020-08-17 08:37 | Outpatient (CLI) | payer MEDICARE, OTHER, SELFPAY ==
[2019-11-12 11:11] VITALS: BMI 27.1
[2020-06-08 14:09] VITALS: BMI 26.4
[2020-08-17 08:41] LABS: Bacteria 0 SEEN /hpf (None Seen); Mucous, Urine 0 SEEN /hpf (<or=2+); Squamous Epithelial Cells - UA 0 SEEN /hpf (0-5); White Blood Cells 0 SEEN /hpf (0-5)
[2020-08-17 12:41] LABS: Absolute Lymphocyte Count 0.85 X10^3/uL (0.83-4.51); Absolute Neutrophil Count 2.7 X10^3/uL (2.0-7.7); Basophil# 0.05 X10^3/uL; Basophil% 1.2 % (0-1); Eosinophils% 2.5 % (0-5); Hematocrit 41.2 % (40-54); Lymphocyte # 0.85 X10^3/ul (4.0); Lymphocyte % 20.9 % (19-41); Mean Corp Hgb Conc 31.6 g/dL (32-36); Mean Corpuscular Volume 91.8 fL (80-94); Mean Platelet Vol. 10.6 fl (6.2-12.0); Monocyte# 0.35 X10^3/uL; Monocyte% 8.6 % (0-10); NRBC Flagged by Analyzer 0 % (0-5); Neutrophil # 2.69 X10^3/uL (2.7-7.7); Neutrophil % 66.3 % (47-70); Platelet Count 232 K/mm3 (150-450); RBC Distribution Width CV 13.7 % (11.6-14.6); RBC Distribution Width SD 46.5 fl (35.1-43.9); Red Blood Count 4.49 M/mm3 (4.6-6.2); White Blood Count 4.1 K/mm3 (4.4-11.0)
[2020-08-17 12:57] LABS: Color, Urine Yellow (Yellow); Glucose, Dipstick Normal (Normal); Ketone-Dipstick Negative (Negative); Leukocyte Esterase-Dipstick Negative /ul (Negative); Nitrite-Dipstick Negative (Negative); Occult Blood-Urine 10 /ul (Negative); Protein-Dipstick 15 mg/dl (Negative); Specific Gravity, Urine 1.005 (1.002-1.030); Urine Bilirubin Dipstick Negative (Negative); Urine Clarity Clear (Clear); Urine Urobilinogen Normal (Normal)
[2020-08-17 13:08] LABS: Hemoglobin A1c 5.8 % (3.8-5.6)
[2020-08-17 13:11] LABS: Red Blood Cells-Urine 0-5 SEEN /hpf (0-5)
[2020-08-17 13:25] LABS: ALB/GLOB Ratio 1.2 RATIO (0.9-2.4); AST(SGOT) 19 U/L (15-37); Alanine Aminotransfer ALT/SGPT 23 U/L (16-61); Alkaline Phosphatase 67 U/L (45-117); Anion Gap 6 (5-15); BUN 26 mg/dL (7-18); BUN/Creat Ratio 13.4 RATIO (10-20); Calcium,Total 9.2 mg/dL (8.5-10.1); Chloride 107 mmol/L (98-107); Creatinine, Serum 1.94 mg/dL (0.70-1.30); EST Glomerular Filtration Rate 36 mL/min (>60); Est Glom Filt Rate - Afr Amer 44 mL/min (>60); Globulin 3.3 g/dL (2.2-4.2); Glucose 107 mg/dL (74-106); Microalbumin,Random Urine 45.5 mg/L (NO RANGE EST.); Microalbumin:Creatinine Ratio 103.2 mg/g CRE (<30 mg/g CRE); Potassium 4.1 mmol/L (3.5-5.1); Protein, Total 7.3 g/dL (6.4-8.2); Sodium Level 139 mmol/L (136-145)
== END ==
PROVIDERS: PCP Family Medicine; Visit Provider Family Medicine
DX: E11.22 Type 2 diabetes mellitus with diabetic chronic kidney disease (principal); R31.9 Hematuria, unspecified; N18.30 Chronic kidney disease, stage 3 unspecified
CPT/HCPCS: 36415; 80053; 81001; 82043; 82570; 83036; 85025

== ENCOUNTER → 2020-09-19 07:29 | Outpatient (CLI) | payer MEDICARE, OTHER, SELFPAY ==
[2020-06-08 14:09] VITALS: BMI 26.4
[2020-08-24 08:53] VITALS: BMI 26.7
[2020-09-19 08:22] LABS: Absolute Lymphocyte Count 1.24 X10^3/uL (0.83-4.51); Absolute Neutrophil Count 3.5 X10^3/uL (2.0-7.7); Basophil# 0.05 X10^3/uL; Basophil% 0.9 % (0-1); Eosinophil# 0.15 X10^3/uL; Eosinophils% 2.8 % (0-5); Hematocrit 41.1 % (40-54); Hemoglobin 12.9 g/dL (13.0-16.5); Lymphocyte # 1.24 X10^3/ul (4.0); Lymphocyte % 23.4 % (19-41); Mean Corp Hgb Conc 31.4 g/dL (32-36); Mean Corpuscular Hgb 28.8 pg (27.0-32.0); Mean Corpuscular Volume 91.7 fL (80-94); Mean Platelet Vol. 10.4 fl (6.2-12.0); Monocyte% 7.5 % (0-10); NRBC Flagged by Analyzer 0 % (0-5); Neutrophil # 3.45 X10^3/uL (2.7-7.7); Platelet Count 208 K/mm3 (150-450); RBC Distribution Width CV 13.8 % (11.6-14.6); RBC Distribution Width SD 46.8 fl (35.1-43.9); Red Blood Count 4.48 M/mm3 (4.6-6.2); White Blood Count 5.3 K/mm3 (4.4-11.0)
[2020-09-19 08:42] LABS: Microalbumin,Random Urine 22.4 mg/L (NO RANGE EST.); Microalbumin:Creatinine Ratio 36.4 mg/g CRE (<30 mg/g CRE)
[2020-09-19 08:55] LABS: ALB/GLOB Ratio 1.1 RATIO (0.9-2.4); AST(SGOT) 19 U/L (15-37); Alanine Aminotransfer ALT/SGPT 22 U/L (16-61); Albumin, Serum 3.8 g/dL (3.2-5.0); Alkaline Phosphatase 65 U/L (45-117); Anion Gap 6 (5-15); BUN 29 mg/dL (7-18); Chloride 107 mmol/L (98-107); Creatinine, Serum 1.93 mg/dL (0.70-1.30); EST Glomerular Filtration Rate 36 mL/min (>60); Est Glom Filt Rate - Afr Amer 44 mL/min (>60); Globulin 3.4 g/dL (2.2-4.2); Glucose 82 mg/dL (74-106); Potassium 4.1 mmol/L (3.5-5.1); Protein, Total 7.2 g/dL (6.4-8.2); Sodium Level 141 mmol/L (136-145)
== END ==
PROVIDERS: PCP Family Medicine; Referring Provider Internal Medicine Rheumatology; Visit Provider Internal Medicine Rheumatology
DX: I12.9 Hypertensive chronic kidney disease with stage 1 through stage 4 chronic kidney disease, or unspecified chronic kidney disease (principal); N18.30 Chronic kidney disease, stage 3 unspecified; M06.4 Inflammatory polyarthropathy; M16.0 Bilateral primary osteoarthritis of hip; M47.897 Other spondylosis, lumbosacral region; M72.2 Plantar fascial fibromatosis; E11.9 Type 2 diabetes mellitus without complications; I25.10 Atherosclerotic heart disease of native coronary artery without angina pectoris; E03.9 Hypothyroidism, unspecified; E78.5 Hyperlipidemia, unspecified; N40.1 Benign prostatic hyperplasia with lower urinary tract symptoms
CPT/HCPCS: 36415; 80053; 82043; 82570; 85025

== ENCOUNTER 2020-09-26 07:53 | Day surgery (SDC) | payer MEDICARE, OTHER, SELFPAY ==
[2020-08-24 08:53] VITALS: BMI 26.7
[2020-09-26] VITALS (7 sets, daily range): BP systolic 103–130; BP diastolic 71–82; PULSE 64–85; RESP 16–22; TEMP 36.1–37; O2SAT 94–100; BMI 24.2
--- NOTE | 2020-09-26 | COLBX_PTH ---
PATIENT: JOHN YOUNG LOC: EN U#:[id number] AGE/SX: 74/M ROOM: RE09/26/[address]: Dr. John Sethi MD : 1945 BED: DIS: 09/26/2020 SPEC #: [id number] RECD: 09/26/20 12:08 STATUS: EDU REKeren #: [id number] VALE: 09/26/20 00:[address]: John Sethi DEPT: SURGICAL PATHOLOGY RECD BY: Gokul Hearn ENTERED: 09/26/20 12:09 SP TYPE: COLON BX OTHR DR: Dr. Raj Chow, DO Tissues: A - Descending colon B - Anal region Procedures: Surgery Specimen Level IV HEADER OPERATION: Colonoscopy (MAC) PRE-OP DIAGNOSIS: Screening TISSUE SUBMITTED: A - Descending colon polyps (3), B - Anal mass MICROSCOPIC DIAGNOSIS A. Descending colon polyps, biopsy: Fragments of tubular adenoma. B. Anal mass, biopsy: Fragments of hyperplastic polyp. AM:harriet 09/27/2020 MICROSCOPIC DESCRIPTION Slides are reviewed. GROSS DESCRIPTION A - Received in fixative is one container labeled with the patient's name and designated descending colon polyps (3). The specimen consists of multiple irregular fragments of light mims soft tissue that in aggregate measure 1 x 1 x 0.4 cm. The specimen is totally submitted in one cassette. B - Received in fixative is one container labeled with the patient's name and designated anal mass. The specimen consists of multiple irregular fragments of light mims soft tissue that in aggregate measure 0.4 x 0.2 x 0.1 cm. The specimen is totally submitted in one cassette. / SJ:harriet 09/26/20 TC:5 CPT: 99947 x2
[2020-09-26] MEDS: Lactated Ringers 1,000 ML 100 ML IV (08:32)
[2020-09-26 08:41] LABS: Bedside Glucose 82 mg/dL (70-110)
--- NOTE | 2020-09-26 08:59 | HP.PCM_ITS ---
History and Physical Date of Admission: 09/26/20 [facility][1] Services [address] [place] [address] MR#: [id number] Acct: [id number] Patient: JOHN YOUNG Rep #: [id number] : 1945 Provider: Dr. Juan Pablo Sethi MD Age/Sex: 74/M Location: [facility] Status: Signed Intake Vital Signs 08/24/20 Height 5 ft 10 in 08/24/20 Weight: 186 lb 4 oz 08/24/20 BMI 26.7 Intake Visit Reasons: C-Scope Chief Complaint: colonoscopy Testing And Regulating Chief Required: No Is patient in pain?: No Allergies rosuvastatin [From [facility]] Adverse Reaction (Severe, Verified 08/24/20 08:53) Myalgias and joint pain Medications Aspirin [Adult Low Dose Aspirin EC] 81 mg PO DAILY 02/17/16 [History Confirmed 08/24/20] Cholecalciferol (Vitamin D3) [Vitamin D3] 2,000 unit PO DAILY 12/25/19 [History Confirmed 08/24/20] Ezetimibe 10 mg PO QHS 12/25/19 [History Confirmed 08/24/20] Levothyroxine Sodium [Synthroid] 50 mcg PO DAILY 12/25/19 [History Confirmed 08/24/20] metFORMIN HCl [Glucophage] 1,700 mg PO DAILY 12/25/19 [History Confirmed 08/24/20] metoprolol succinate 25 mg tablet,extended release 24 hr 12.5 mg PO DAILY #45 tab 05/02/20 [Rx Confirmed 08/24/20] ticagrelor 90 mg tablet 90 mg PO BID #180 tab 05/24/20 [Rx Confirmed 08/24/20] hydroxychloroquine 200 mg tablet 200 mg PO BID tab 06/02/20 [History Confirmed 08/24/20] tamsulosin 0.4 mg capsule 0.4 mg PO DAILY cap 06/02/20 [History Confirmed 08/24/20] lorazepam 1 mg tablet 1 mg PO Q12H PRN tab 08/24/20 [History Confirmed 08/24/20] PFSH Medical History Atherosclerosis of [place] coronary artery of [place] heart without angina pectoris (Chronic) Non-ST elevation (NSTEMI) myocardial infarction (Chronic 12/2015) Dilated aortic root (Chronic) Essential (primary) hypertension (Chronic) Hyperlipidemia (Chronic) Chronic kidney disease (CKD) (Chronic) Arthritis (Chronic) BPH (benign prostatic hyperplasia) (Chronic) Hypothyroidism (Chronic) Obstructive sleep apnea (Chronic) Plantar fasciitis (Chronic) Type 2 diabetes mellitus without complications (Chronic) DEENA (acute kidney injury) (Resolved) Calculus of proximal right ureter (Resolved) Surgical History (Updated 08/24/20 @ 08:57 by Aubree Chris) History of coronary artery stent placement (Chronic 12/25/15) History of colonoscopy (Acute ~2007) History of coronary angioplasty (Acute ~2009) History of esophagogastroduodenoscopy (EGD) (Acute ~2005) History of heart artery stent (Acute ~2009) History of ureter stent (Acute ~12/2019) History of hemorrhoidectomy (Resolved) History of left heart catheterization (Resolved 12/2015) History of nasal septoplasty (Resolved) Family History (Updated 08/24/20 @ 08:57 by Aubree Chris) Mother CAD (coronary artery disease) Hx of CABG Father CAD (coronary artery disease) Hx of CABG Brother CAD (coronary artery disease) Hx of CABG Myocardial infarction Diabetes Social History (Updated 08/24/20 @ 09:[address] John Sethi MD) Smoking Status: Never smoker alcohol intake: current alcohol intake frequency: a few times a week Alcohol type: beer substance use type: does not use caffeine: Yes Type: coffee what type of physical activity do you participate in: walking frequency: daily duration: 30-45 minutes/day seatbelt use: always do you feel safe at home: Yes HPI HPI Chief Complaint: colonoscopy Details: Patient was informed that this visit will be billed to patient. This visit was conducted during COVID- pandemic. JOHN YOUNG, is a 74 M who presents A telephone visit for screening colonoscopy. Patient has had a last colonoscopy greater than 10 years ago and was done in [place]. He has had previous colonoscopies to that to where he states he has had benign polyps removed but he does not think that he has had a polyp removed and his last colonoscopy. Patient has been suffering with a little bit of constipation was treating this with glycerin suppositories which did work he did notice some slight rectal bleeding when he was constipated. 2004 he had a formal hemorrhoidectomy. He has no family history of colon cancer. He is not experiencing any abdominal pains. ROS Const Constitutional: Positive for fatigue; no anorexia, body ache, chills, excessive sweating, fever(s), frequent falls, headache(s), decreased energy, malaise, night sweats, snoring, weakness, weight change, sleep problems, abnormal sleep pattern, change in appetite or other Eyes Eyes: No visual disturbances ENT ENT: No abnormal hearing, ear pain, ear discharge, ear pressure, hearing loss, tinnitus, dizziness/vertigo, balance problems, nosebleed/epistaxis, nasal congestion, nasal obstruction, nose pain, sinus pressure, sinus pain, nasal discharge, post nasal drip, headache(s), facial pain, dental pain, dry mouth, difficulty swallowing, bad breath, hoarseness, lip swelling, mouth lesions, mouth pain, neck pain, sore throat, tongue swelling, throat swelling or other Resp Respiratory: No cough, change in phlegm color, chest congestion, excessive phlegm production, hemoptysis, pain on inspiration, shortness of breath, pain with cough, snoring, stridor, wheezing or other Cardio Cardiology: Positive for other (cardiac stent, [place], htn); no chest pain at rest, chest pain with exertion, leg pain with exertion, excessive sweating, shortness of breath, dyspnea on exertion, generalized swelling, irregular heart rhythm, lightheadedness, orthopnea, radiating jaw, neck or arm pain, fast heart rate, slow heart rate or palpitations Gastro GI: Positive for abdominal pain and nausea/dyspepsia; no belching, bloating, change in bowel habits, change in stool character, coffee ground emesis, constipation, cramping, diarrhea, heartburn, difficulty swallowing, feeling full early, excessive flatus, incontinent of stools, Vomiting blood/hematemesis, blood in stool, loose stools, Black,tarry stools, pain with swallowing, vomiting or other Musc Musculoskeletal: Positive for stiffness; no abnormal walking, joint pain, back pain, deformity, joint swelling, limited range of motion, loss of height, muscle cramps, muscle weakness, decreased muscle mass, body aches, neck pain, numbness, radiating pain into limb, tingling or other Neuro Neurology: No abnormal walking, abnormal hearing, abnormal movements, abnormal speech, behavioral changes, confusion, unsteady gait/balance, dizziness, weakness, frequent falls, headache(s), lack of coordination, loss of vision, memory loss, numbness, tingling, visual disturbances, restless legs, fainting, tremor(s) or other Psych Psychiatric: No abnormal sleep pattern, No lack of enjoyment, No anxiety, No behavioral changes, No change in appetite, No confusion, No depression, No difficulty concentrating, No hopelessness, No irritability, No memory loss, No mood swings, No panic attacks, No paranoia, No Thoughts of harming yourself/Others, No hallucinations, No other Endo Endocrine: Positive for fatigue; no excessive sweating or other Aller/Imm Allergy/Immunologic: No lip swelling, throat swelling, tongue swelling or wheezing Exam Musc Musculoskeletal: No muscle weakness Details: Details:: Exam was limited due to phone visit with no video. Quality Reporting Medication Reconciliation ([facility] 68) aspirin 81 mg PO DAILY cholecalciferol (vitamin D3) 2,000 units PO DAILY ezetimibe 10 mg PO QHS hydroxychloroquine 200 mg PO BID levothyroxine 50 mcg PO DAILY lorazepam 1 mg PO Q12H PRN metformin 1,700 mg PO DAILY metoprolol succinate ER 12.5 mg (1/2 x 25 mg) PO DAILY tamsulosin 0.4 mg PO DAILY ticagrelor 90 mg PO BID Tobacco Screening (CMS 138) Smoking Status: Never smoker Assessment & Plan Problems 1. Encounter for screening colonoscopy Z12.11 Plan I have discussed the above with the patient. I have offered the patient colonoscopy for evaluation. I have explained the risks/benefits of the procedure and described the procedure. I have discussed the risks with the patient, including but not limited to: infection, bleeding, perforation of the GI tract requiring emergency surgery, inability to complete the procedure, injury to any internal organs, complications of anesthesia, etc. - the patient understands and agrees to proceed. I have answered all the patient's questions to the patient's satisfaction and the patient has no further questions. The patient has been given instructions for the colon cleansing preparation. Patient will need to be off of his blood thinners for 5 days prior to the procedure. Coding Level of Care Code Level 2 Telephone Diagnoses Encounter for screening colonoscopy Z12.11 Time Spent (min) 15 I have re-examined the patient. There are no clinical changes since date of exam.
--- NOTE | 2020-09-26 09:36 | OP.COLON_ITS ---
Patient Name: John Arriola Procedure Date: 09/26/2020 8:54 AM Date of : 1945 Age: 74 Procedure: Colonoscopy Indications: Screening for colorectal malignant neoplasm Providers: John Sethi MD Referring MD: Raj Chow Medicines: See the Anesthesia note for documentation of the administered medications Patient Profile: This is a 74 year old male. Refer to note in patient chart for documentation of history and physical. Last Colonoscopy: more than 10 years ago. Complications: No immediate complications. Procedure: Pre-Anesthesia Assessment: - Prior to the procedure, a History and Physical was performed, and patient medications and allergies were reviewed. The patient's tolerance of previous anesthesia was also reviewed. The risks and benefits of the procedure and the sedation options and risks were discussed with the patient. All questions were answered, and informed consent was obtained. Prior Anticoagulants: The patient has taken aspirin, last dose was 7 days prior to procedure. ASA Grade Assessment: II - A patient with mild systemic disease. After reviewing the risks and benefits, the patient was deemed in satisfactory condition to undergo the procedure. After I obtained informed consent, the scope was passed under direct vision. Throughout the procedure, the patient's blood pressure, pulse, and oxygen saturations were monitored continuously. The adult colonoscope was introduced through the anus and advanced to the cecum, identified by appendiceal orifice and ileocecal valve. The colonoscopy was performed without difficulty. The patient tolerated the procedure well. The quality of the bowel preparation was good. Scope In: 9:07:36 AM Scope Withdrawal Time 0 hours 11 minutes 22 seconds Scope Out: 9:29:29 AM Total Procedure Duration Time 0 hours 21 minutes 53 seconds Findings: Three sessile polyps were found in the descending colon. The polyps were 3 to 7 mm in size. These polyps were removed with a hot snare. Resection and retrieval were complete. A sessile non-obstructing small mass was found at the anus. The mass was non-circumferential. The mass measured one cm in length. In addition, its diameter measured five mm. No bleeding was present. This was biopsied with a cold forceps for histology. Multiple small-mouthed diverticula were found in the sigmoid colon. No biopsies or other specimens were collected for this exam. The exam was otherwise without abnormality. Impression: - Three 3 to 7 mm polyps in the descending colon, removed with a hot snare. Resected and retrieved. - Rule out malignancy, tumor at the anus. Biopsied. - Diverticulosis in the sigmoid colon. No specimens collected. - The examination was otherwise normal. Recommendation: - Discharge patient to home. - Resume previous diet. - Continue present medications. - Await pathology results. - Refer to a colo-rectal surgeon at appointment to be scheduled. - Repeat colonoscopy in 3 - 5 years for surveillance. Procedure Code(s): --- Professional --- 87736, Colonoscopy, flexible; with removal of tumor(s), polyp(s), or other lesion(s) by snare technique 82497, 59, Colonoscopy, flexible; with biopsy, single or multiple Diagnosis Code(s): --- Professional --- Z12.11, Encounter for screening for malignant neoplasm of colon D12.4, Benign neoplasm of descending colon D49.0, Neoplasm of unspecified behavior of digestive system K57.30, Diverticulosis of large intestine without perforation or abscess without bleeding CPT copyright 2017 [employer]. All rights reserved. The codes documented in this report are preliminary and upon postage machine operator review may be revised to meet current compliance requirements. MD John Morfin MD 09/26/2020 9:35:48 AM This report has been signed electronically. Number of Addenda: 0 Note Initiated On: 09/26/2020 8:54 AM
--- NOTE | 2020-09-26 09:36 | OP.CCLET_ITS ---
09/26/2020 Raj Chow [address] [place] [address] Re : Colonoscopy procedure for John Arriola Dear Dr. Chow This procedure was performed on Saturday, September 26, 2020. My impressions and recommendations are as follows: Impressions : - Three 3 to 7 mm polyps in the descending colon, removed with a hot snare. Resected and retrieved. - Rule out malignancy, tumor at the anus. Biopsied. - Diverticulosis in the sigmoid colon. No specimens collected. - The examination was otherwise normal. Recommendations : - Discharge patient to home. - Resume previous diet. - Continue present medications. - Await pathology results. - Refer to a colo-rectal surgeon at appointment to be scheduled. - Repeat colonoscopy in 3 - 5 years for surveillance. My findings are described in the full procedure note, which is enclosed. If I can be of further assistance, please feel free to contact me at Doctor phone number(s): , Fax: [phone], Work: . Sincerely, MD John Morfin MD 09/26/2020 9:35:48 AM This report has been signed electronically.
== END 2020-09-26 10:40 | disposition home or self-care (01) ==
LOC: EN 07:54 → AC 07:54
PROVIDERS: PCP Family Medicine; Referring Provider Family Medicine; Visit Provider Surgery
PROC: 0DJD8ZZ Inspection of Lower Intestinal Tract, Via Natural or Artificial Opening Endoscopic (ICD-10-PCS; CPT 45378; principal; 2020-09-26 08:55)
DX: Z12.11 Encounter for screening for malignant neoplasm of colon (principal); Z20.828 Contact with and (suspected) exposure to other viral communicable diseases; K57.30 Diverticulosis of large intestine without perforation or abscess without bleeding; D12.4 Benign neoplasm of descending colon; I25.10 Atherosclerotic heart disease of native coronary artery without angina pectoris; I25.2 Old myocardial infarction; E11.22 Type 2 diabetes mellitus with diabetic chronic kidney disease; E78.5 Hyperlipidemia, unspecified; N18.9 Chronic kidney disease, unspecified; I12.9 Hypertensive chronic kidney disease with stage 1 through stage 4 chronic kidney disease, or unspecified chronic kidney disease; N40.0 Benign prostatic hyperplasia without lower urinary tract symptoms; G47.33 Obstructive sleep apnea (adult) (pediatric); M19.90 Unspecified osteoarthritis, unspecified site; Z79.899 Other long term (current) drug therapy; Z79.82 Long term (current) use of aspirin; Z79.84 Long term (current) use of oral hypoglycemic drugs; Z87.891 Personal history of nicotine dependence
CPT/HCPCS: 45380; 45385; 82962; 87426; 88305; C9803; J7120; J1610; J2405

== ENCOUNTER → 2020-11-21 07:19 | Outpatient (CLI) | payer MEDICARE, OTHER, SELFPAY ==
[2020-11-21 08:39] LABS: AST(SGOT) 17 U/L (15-37); Alanine Aminotransfer ALT/SGPT 23 U/L (16-61); Albumin, Serum 3.7 g/dL (3.2-5.0); Alkaline Phosphatase 67 U/L (45-117); Bilirubin, Direct 0.14 mg/dL (0.00-0.30); Cholesterol 188 mg/dL (200); Globulin 3.4 g/dL (2.2-4.2); High Density Lipoprotein 73 mg/dL; Protein, Total 7.1 g/dL (6.4-8.2); Triglycerides 83 mg/dL; Very Low Density Lipoprotein 17 mg/dL (5-40)
== END ==
PROVIDERS: PCP Family Medicine; Referring Provider Internal Medicine Cardiovascular Disease; Visit Provider Internal Medicine Cardiovascular Disease
DX: E78.00 Pure hypercholesterolemia, unspecified (principal); E78.5 Hyperlipidemia, unspecified
CPT/HCPCS: 36415; 80061; 80076

== ENCOUNTER → 2020-12-08 10:09 | Outpatient (CLI) | payer MEDICARE, OTHER, SELFPAY ==
[2020-11-24 11:35] VITALS: BMI 25.1
[2020-12-08 11:09] LABS: Absolute Lymphocyte Count 0.42 X10^3/uL (0.83-4.51); Absolute Neutrophil Count 4.1 X10^3/uL (2.0-7.7); Basophil# 0.06 X10^3/uL; Basophil% 1.2 % (0-1); Eosinophil# 0.09 X10^3/uL; Eosinophils% 1.8 % (0-5); Hematocrit 40.2 % (40-54); Lymphocyte # 0.42 X10^3/ul (4.0); Lymphocyte % 8.5 % (19-41); Mean Corp Hgb Conc 32.3 g/dL (32-36); Mean Corpuscular Hgb 29.7 pg (27.0-32.0); Mean Platelet Vol. 10.2 fl (6.2-12.0); Monocyte# 0.29 X10^3/uL; Monocyte% 5.9 % (0-10); NRBC Flagged by Analyzer 0 % (0-5); Neutrophil # 4.07 X10^3/uL (2.7-7.7); Neutrophil % 82.2 % (47-70); POSITIVE DIFFERENTIAL YES; Platelet Count 228 K/mm3 (150-450); RBC Distribution Width CV 13.7 % (11.6-14.6); RBC Distribution Width SD 46.7 fl (35.1-43.9); Red Blood Count 4.37 M/mm3 (4.6-6.2)
[2020-12-08 11:10] LABS: Differential Indicated SCAN CRITERIA MET
[2020-12-08 11:36] LABS: ALB/GLOB Ratio 1.1 RATIO (0.9-2.4); AST(SGOT) 21 U/L (15-37); Alanine Aminotransfer ALT/SGPT 22 U/L (16-61); Albumin, Serum 3.8 g/dL (3.2-5.0); Alkaline Phosphatase 61 U/L (45-117); Anion Gap 6 (5-15); BUN 27 mg/dL (7-18); BUN/Creat Ratio 11.5 RATIO (10-20); Calcium,Total 9.2 mg/dL (8.5-10.1); Chloride 104 mmol/L (98-107); Creatinine, Serum 2.35 mg/dL (0.70-1.30); EST Glomerular Filtration Rate 29 mL/min (>60); Est Glom Filt Rate - Afr Amer 35 mL/min (>60); Globulin 3.4 g/dL (2.2-4.2); Glucose 102 mg/dL (74-106); Potassium 4.7 mmol/L (3.5-5.1); Protein, Total 7.2 g/dL (6.4-8.2); Sodium Level 141 mmol/L (136-145)
== END ==
PROVIDERS: PCP Family Medicine; Referring Provider Internal Medicine Rheumatology; Visit Provider Internal Medicine Rheumatology
DX: M06.4 Inflammatory polyarthropathy (principal); M16.0 Bilateral primary osteoarthritis of hip; M47.897 Other spondylosis, lumbosacral region; M72.2 Plantar fascial fibromatosis; I10 Essential (primary) hypertension; E11.9 Type 2 diabetes mellitus without complications; I25.10 Atherosclerotic heart disease of native coronary artery without angina pectoris; E03.9 Hypothyroidism, unspecified; E78.5 Hyperlipidemia, unspecified; N40.1 Benign prostatic hyperplasia with lower urinary tract symptoms
CPT/HCPCS: 36415; 80053; 85025

== ENCOUNTER → 2021-02-15 08:07 | Outpatient (CLI) | payer MEDICARE, OTHER, SELFPAY ==
[2020-11-24 11:35] VITALS: BMI 25.1
[2021-02-15 08:46] LABS: Color, Urine Straw (Yellow); Glucose, Dipstick Normal (Normal); Ketone-Dipstick Negative (Negative); Leukocyte Esterase-Dipstick Negative /ul (Negative); Nitrite-Dipstick Negative (Negative); Occult Blood-Urine 10 /ul (Negative); Protein-Dipstick 15 mg/dl (Negative); Urine Bilirubin Dipstick Negative (Negative); Urine Clarity Clear (Clear); Urine Urobilinogen Normal (Normal)
[2021-02-15 09:06] LABS: Anion Gap 4 (5-15); BUN 35 mg/dL (7-18); BUN/Creat Ratio 18.5 RATIO (10-20); Chloride 109 mmol/L (98-107); Creatinine, Serum 1.89 mg/dL (0.70-1.30); EST Glomerular Filtration Rate 37 mL/min (>60); Est Glom Filt Rate - Afr Amer 45 mL/min (>60); Glucose 94 mg/dL (74-106); Potassium 4.1 mmol/L (3.5-5.1); Sodium Level 140 mmol/L (136-145)
[2021-02-15 09:12] LABS: Hemoglobin A1c 5.6 % (3.8-5.6); Microalbumin,Random Urine 34.1 mg/L (NO RANGE EST.); Microalbumin:Creatinine Ratio 28.4 mg/g CRE (<30 mg/g CRE)
== END ==
PROVIDERS: PCP Family Medicine; Referring Provider Family Medicine; Visit Provider Family Medicine
DX: I12.9 Hypertensive chronic kidney disease with stage 1 through stage 4 chronic kidney disease, or unspecified chronic kidney disease (principal); E11.22 Type 2 diabetes mellitus with diabetic chronic kidney disease; N18.31 Chronic kidney disease, stage 3a
CPT/HCPCS: 36415; 80048; 81002; 82043; 82570; 83036

== ENCOUNTER → 2021-02-21 11:48 | Outpatient (CLI) | payer MEDICARE, OTHER, SELFPAY ==
[2020-11-24 11:35] VITALS: BMI 25.1
[2021-02-21 12:33] LABS: Absolute Lymphocyte Count 0.44 X10^3/uL (0.83-4.51); Absolute Neutrophil Count 4.4 X10^3/uL (2.0-7.7); Basophil# 0.03 X10^3/uL; Basophil% 0.6 % (0-1); Eosinophil# 0.04 X10^3/uL; Eosinophils% 0.7 % (0-5); Hematocrit 39.8 % (40-54); Lymphocyte # 0.44 X10^3/ul (0.83-4.51); Lymphocyte % 8.1 % (19-41); Mean Corp Hgb Conc 32.7 g/dL (32-36); Mean Corpuscular Hgb 29.7 pg (27.0-32.0); Mean Corpuscular Volume 90.9 fL (80-94); Mean Platelet Vol. 10.2 fl (6.2-12.0); Monocyte# 0.44 X10^3/uL; Monocyte% 8.1 % (0-10); NRBC Flagged by Analyzer 0 % (0-5); Neutrophil # 4.44 X10^3/uL (2.7-7.7); Neutrophil % 82.1 % (47-70); POSITIVE DIFFERENTIAL YES; Platelet Count 220 K/mm3 (150-450); RBC Distribution Width CV 13.6 % (11.6-14.6); RBC Distribution Width SD 45.7 fl (35.1-43.9); Red Blood Count 4.38 M/mm3 (4.6-6.2); White Blood Count 5.4 K/mm3 (4.4-11.0)
[2021-02-21 12:36] LABS: Differential Indicated SCAN CRITERIA MET
[2021-02-21 12:57] LABS: ALB/GLOB Ratio 1.1 RATIO (0.9-2.4); AST(SGOT) 16 U/L (15-37); Alanine Aminotransfer ALT/SGPT 20 U/L (16-61); Albumin, Serum 3.8 g/dL (3.2-5.0); Alkaline Phosphatase 63 U/L (45-117); Anion Gap 4 (5-15); BUN 31 mg/dL (7-18); Calcium,Total 9.4 mg/dL (8.5-10.1); Chloride 105 mmol/L (98-107); Creatinine, Serum 2.21 mg/dL (0.70-1.30); EST Glomerular Filtration Rate 31 mL/min (>60); Est Glom Filt Rate - Afr Amer 38 mL/min (>60); Globulin 3.4 g/dL (2.2-4.2); Glucose 128 mg/dL (74-106); Potassium 4.5 mmol/L (3.5-5.1); Protein, Total 7.2 g/dL (6.4-8.2); Sodium Level 139 mmol/L (136-145)
[2021-02-21 13:01] LABS: Reactive Lymphocyte RARE
== END ==
PROVIDERS: PCP Family Medicine; Referring Provider Internal Medicine Rheumatology; Visit Provider Internal Medicine Rheumatology
DX: M06.4 Inflammatory polyarthropathy (principal); M16.0 Bilateral primary osteoarthritis of hip; M47.897 Other spondylosis, lumbosacral region; I10 Essential (primary) hypertension; E11.9 Type 2 diabetes mellitus without complications; I25.10 Atherosclerotic heart disease of native coronary artery without angina pectoris; E03.9 Hypothyroidism, unspecified; E78.5 Hyperlipidemia, unspecified; N40.1 Benign prostatic hyperplasia with lower urinary tract symptoms; Z79.899 Other long term (current) drug therapy
CPT/HCPCS: 36415; 80053; 85025

== ENCOUNTER → 2021-05-18 07:10 | Outpatient (CLI) | payer MEDICARE, OTHER, SELFPAY ==
[2020-11-24 11:35] VITALS: BMI 25.1
[2021-05-18 07:52] LABS: AST(SGOT) 28 U/L (15-37); Alanine Aminotransfer ALT/SGPT 51 U/L (16-61); Albumin, Serum 3.6 g/dL (3.2-5.0); Alkaline Phosphatase 94 U/L (45-117); Anion Gap 6 (5-15); BUN 25 mg/dL (7-18); BUN/Creat Ratio 13.2 RATIO (10-20); Bilirubin, Direct 0.13 mg/dL (0.00-0.30); Calcium,Total 8.5 mg/dL (8.5-10.1); Chloride 110 mmol/L (98-107); Cholesterol 163 mg/dL (200); Creatinine, Serum 1.89 mg/dL (0.70-1.30); EST Glomerular Filtration Rate 37 mL/min (>60); Est Glom Filt Rate - Afr Amer 45 mL/min (>60); Globulin 3.3 g/dL (2.2-4.2); Glucose 94 mg/dL (74-106); High Density Lipoprotein 71 mg/dL; Protein, Total 6.9 g/dL (6.4-8.2); Sodium Level 141 mmol/L (136-145); Triglycerides 60 mg/dL; Very Low Density Lipoprotein 12 mg/dL (5-40)
[2021-05-18 08:30] LABS: Hemoglobin A1c 5.7 % (3.8-5.6)
== END ==
PROVIDERS: Internal Medicine Cardiovascular Disease; PCP Family Medicine; Referring Provider Family Medicine; Visit Provider Family Medicine
DX: E11.22 Type 2 diabetes mellitus with diabetic chronic kidney disease (principal); N18.32 Chronic kidney disease, stage 3b; E78.00 Pure hypercholesterolemia, unspecified; E78.5 Hyperlipidemia, unspecified
CPT/HCPCS: 36415; 80048; 80061; 80076; 83036

== ENCOUNTER → 2021-07-10 07:06 | Outpatient (CLI) | payer MEDICARE, OTHER, SELFPAY ==
[2021-07-10 07:47] LABS: AST(SGOT) 23 U/L (15-37); Alanine Aminotransfer ALT/SGPT 29 U/L (16-61); Albumin, Serum 3.4 g/dL (3.2-5.0); Alkaline Phosphatase 99 U/L (45-117); Bilirubin, Direct 0.11 mg/dL (0.00-0.30); Cholesterol 181 mg/dL (200); Globulin 3.5 g/dL (2.2-4.2); High Density Lipoprotein 71 mg/dL; Protein, Total 6.9 g/dL (6.4-8.2); Triglycerides 44 mg/dL; Very Low Density Lipoprotein 9 mg/dL (5-40)
== END ==
PROVIDERS: PCP Family Medicine; Referring Provider Nurse Practitioner Family; Visit Provider Nurse Practitioner Family
DX: E78.00 Pure hypercholesterolemia, unspecified (principal); E78.2 Mixed hyperlipidemia
CPT/HCPCS: 36415; 80061; 80076

== ENCOUNTER → 2021-08-17 06:56 | Outpatient (CLI) | payer MEDICARE, OTHER, SELFPAY ==
[2021-08-17 07:55] LABS: Absolute Neutrophil Count 1.9 X10^3/uL (2.0-7.7); Basophil# 0.05 X10^3/uL; Basophil% 1.3 % (0-1); Eosinophil# 0.54 X10^3/uL; Eosinophils% 14.2 % (0-5); Hematocrit 41.3 % (40-54); Hemoglobin 13.7 g/dL (13.0-16.5); Lymphocyte % 23.7 % (19-41); Mean Corp Hgb Conc 33.2 g/dL (32-36); Mean Corpuscular Volume 90.6 fL (80-94); Mean Platelet Vol. 10.2 fl (6.2-12.0); Monocyte% 10.6 % (0-10); NRBC Flagged by Analyzer 0 % (0-5); Neutrophil # 1.89 X10^3/uL (2.7-7.7); Neutrophil % 49.9 % (47-70); Platelet Count 164 K/mm3 (150-450); RBC Distribution Width CV 13.5 % (11.6-14.6); RBC Distribution Width SD 44.5 fl (35.1-43.9); Red Blood Count 4.56 M/mm3 (4.6-6.2); White Blood Count 3.8 K/mm3 (4.4-11.0)
[2021-08-17 08:28] LABS: Vitamin B12 181 pg/mL (211-911); Vitamin D,25 Hydroxy 26.7 ng/mL
[2021-08-17 08:30] LABS: Anion Gap 6 (5-15); BUN 26 mg/dL (7-18); BUN/Creat Ratio 13.1 RATIO (10-20); Calcium,Total 8.5 mg/dL (8.5-10.1); Chloride 110 mmol/L (98-107); Cholesterol 186 mg/dL (200); Creatinine, Serum 1.98 mg/dL (0.70-1.30); EST Glomerular Filtration Rate 35 mL/min (>60); Est Glom Filt Rate - Afr Amer 43 mL/min (>60); Glucose 93 mg/dL (74-106); High Density Lipoprotein 71 mg/dL; PSA,Total - Annual Screen 3.83 ng/mL (0.00-4.00); PTHIN 84.3 pg/mL (18.4-80.1); Potassium 4.1 mmol/L (3.5-5.1); Sodium Level 142 mmol/L (136-145); Thyroid Stim Hormone (TSH) 3.05 uIU/mL (0.358-3.74); Triglycerides 96 mg/dL; Very Low Density Lipoprotein 19 mg/dL (5-40)
[2021-08-17 08:43] LABS: Hemoglobin A1c 5.7 % (3.8-5.6)
== END ==
PROVIDERS: PCP Family Medicine; Referring Provider Family Medicine; Visit Provider Family Medicine
DX: I25.10 Atherosclerotic heart disease of native coronary artery without angina pectoris (principal); I12.9 Hypertensive chronic kidney disease with stage 1 through stage 4 chronic kidney disease, or unspecified chronic kidney disease; N18.30 Chronic kidney disease, stage 3 unspecified; E03.9 Hypothyroidism, unspecified; E11.9 Type 2 diabetes mellitus without complications; Z12.5 Encounter for screening for malignant neoplasm of prostate; Z51.81 Encounter for therapeutic drug level monitoring
CPT/HCPCS: 36415; 80048; 80061; 82306; 82607; 83036; 83970; 84153; 84443; 85025; G0103

== ENCOUNTER → 2021-08-23 07:49 | Outpatient (CLI) | payer MEDICARE, OTHER, SELFPAY ==
[2021-08-23 08:53] LABS: Absolute Lymphocyte Count 1.08 X10^3/uL (0.83-4.51); Absolute Neutrophil Count 2.2 X10^3/uL (2.0-7.7); Basophil# 0.06 X10^3/uL; Basophil% 1.4 % (0-1); Eosinophils% 11.7 % (0-5); Hematocrit 43.7 % (40-54); Hemoglobin 13.8 g/dL (13.0-16.5); Lymphocyte # 1.08 X10^3/ul (0.83-4.51); Lymphocyte % 25.3 % (19-41); Mean Corp Hgb Conc 31.6 g/dL (32-36); Mean Corpuscular Hgb 29.2 pg (27.0-32.0); Mean Corpuscular Volume 92.6 fL (80-94); Monocyte# 0.42 X10^3/uL; Monocyte% 9.8 % (0-10); NRBC Flagged by Analyzer 0 % (0-5); Neutrophil % 51.6 % (47-70); Platelet Count 186 K/mm3 (150-450); RBC Distribution Width CV 13.4 % (11.6-14.6); RBC Distribution Width SD 45.7 fl (35.1-43.9); Red Blood Count 4.72 M/mm3 (4.6-6.2); White Blood Count 4.3 K/mm3 (4.4-11.0)
[2021-08-23 09:13] LABS: AST(SGOT) 20 U/L (15-37); Alanine Aminotransfer ALT/SGPT 28 U/L (16-61); Albumin, Serum 3.5 g/dL (3.2-5.0); Alkaline Phosphatase 82 U/L (45-117); Anion Gap 7 (5-15); BUN 24 mg/dL (7-18); BUN/Creat Ratio 12.3 RATIO (10-20); Calcium,Total 8.8 mg/dL (8.5-10.1); Chloride 107 mmol/L (98-107); Creatinine, Serum 1.95 mg/dL (0.70-1.30); EST Glomerular Filtration Rate 36 mL/min (>60); Est Glom Filt Rate - Afr Amer 43 mL/min (>60); Globulin 3.5 g/dL (2.2-4.2); Glucose 102 mg/dL (74-106); Potassium 4.2 mmol/L (3.5-5.1); Sodium Level 143 mmol/L (136-145)
== END ==
PROVIDERS: PCP Family Medicine; Referring Provider Internal Medicine Rheumatology; Visit Provider Internal Medicine Rheumatology
DX: M06.4 Inflammatory polyarthropathy (principal); M16.0 Bilateral primary osteoarthritis of hip; M47.897 Other spondylosis, lumbosacral region; Z79.899 Other long term (current) drug therapy
CPT/HCPCS: 36415; 80053; 85025

== ENCOUNTER 2021-11-21 07:06 | Outpatient (CLI) | payer MEDICARE, OTHER, SELFPAY ==
[2021-11-21 08:31] LABS: AST(SGOT) 22 U/L (15-37); Alanine Aminotransfer ALT/SGPT 36 U/L (16-61); Albumin, Serum 3.7 g/dL (3.2-5.0); Alkaline Phosphatase 102 U/L (45-117); Cholesterol 206 mg/dL (200); Globulin 3.7 g/dL (2.2-4.2); High Density Lipoprotein 71 mg/dL; Protein, Total 7.4 g/dL (6.4-8.2); Triglycerides 62 mg/dL; Very Low Density Lipoprotein 12 mg/dL (5-40)
== END 2021-11-21 23:59 | disposition home or self-care (01) ==
PROVIDERS: PCP Family Medicine; Referring Provider Internal Medicine Cardiovascular Disease; Visit Provider Internal Medicine Cardiovascular Disease
DX: I25.10 Atherosclerotic heart disease of native coronary artery without angina pectoris (principal); E78.2 Mixed hyperlipidemia
CPT/HCPCS: 36415; 80061; 80076

== ENCOUNTER → 2022-01-26 08:38 | Outpatient (REF) | payer SELFPAY | LOC: CVS 08:38 | PROVIDERS: PCP Family Medicine; Referring Provider Internal Medicine Cardiovascular Disease; Visit Provider Internal Medicine Cardiovascular Disease | DX: Z00.00 Encounter for general adult medical examination without abnormal findings (principal) ==

== ENCOUNTER → 2022-02-26 | Outpatient (CLI) | payer MEDICARE, OTHER, SELFPAY ==
[2022-02-26 10:10] LABS: Absolute Neutrophil Count 2.1 X10^3/uL (2.0-7.7); Basophil# 0.05 X10^3/uL; Basophil% 1.2 % (0-1); Eosinophil# 0.24 X10^3/uL; Eosinophils% 5.9 % (0-5); Hematocrit 42.7 % (40-54); Hemoglobin 13.8 g/dL (13.0-16.5); Lymphocyte % 29.7 % (19-41); Mean Corp Hgb Conc 32.3 g/dL (32-36); Mean Corpuscular Hgb 29.3 pg (27.0-32.0); Mean Corpuscular Volume 90.7 fL (80-94); Mean Platelet Vol. 10.5 fl (6.2-12.0); Monocyte# 0.43 X10^3/uL; Monocyte% 10.6 % (0-10); NRBC Flagged by Analyzer 0 % (0-5); Neutrophil # 2.11 X10^3/uL (2.7-7.7); Neutrophil % 52.4 % (47-70); Platelet Count 164 K/mm3 (150-450); RBC Distribution Width CV 13.5 % (11.6-14.6); RBC Distribution Width SD 45.2 fl (35.1-43.9); Red Blood Count 4.71 M/mm3 (4.6-6.2)
[2022-02-26 10:40] LABS: ALB/GLOB Ratio 1.2 RATIO (0.9-2.4); AST(SGOT) 21 U/L (15-37); Alanine Aminotransfer ALT/SGPT 24 U/L (16-61); Albumin, Serum 3.8 g/dL (3.2-5.0); Alkaline Phosphatase 62 U/L (45-117); Anion Gap 6 (5-15); BUN 33 mg/dL (7-18); BUN/Creat Ratio 16.3 RATIO (10-20); Calcium,Total 9.1 mg/dL (8.5-10.1); Chloride 106 mmol/L (98-107); Creatinine, Serum 2.02 mg/dL (0.70-1.30); EST Glomerular Filtration Rate 34 mL/min (>60); Est Glom Filt Rate - Afr Amer 42 mL/min (>60); Globulin 3.3 g/dL (2.2-4.2); Glucose 94 mg/dL (74-106); Potassium 4.1 mmol/L (3.5-5.1); Protein, Total 7.1 g/dL (6.4-8.2); Sodium Level 140 mmol/L (136-145)
== END | disposition home or self-care (01) ==
PROVIDERS: PCP Family Medicine; Referring Provider Internal Medicine Rheumatology; Visit Provider Internal Medicine Rheumatology
DX: M06.4 Inflammatory polyarthropathy (principal); E11.9 Type 2 diabetes mellitus without complications; M16.0 Bilateral primary osteoarthritis of hip; M47.897 Other spondylosis, lumbosacral region; I10 Essential (primary) hypertension; I25.10 Atherosclerotic heart disease of native coronary artery without angina pectoris; E03.9 Hypothyroidism, unspecified; Z79.899 Other long term (current) drug therapy
CPT/HCPCS: 36415; 80053; 85025

== ENCOUNTER → 2022-03-14 | Outpatient (CLI) | payer MEDICARE, OTHER, SELFPAY ==
[2022-03-14 07:39] LABS: Microalbumin,Random Urine 72.2 mg/L (NO RANGE EST.); Microalbumin:Creatinine Ratio 56.9 mg/g CRE (<30 mg/g CRE)
[2022-03-14 07:59] LABS: Anion Gap 6 (5-15); BUN 30 mg/dL (7-18); BUN/Creat Ratio 14.7 RATIO (10-20); Calcium,Total 8.7 mg/dL (8.5-10.1); Chloride 109 mmol/L (98-107); Creatinine, Serum 2.04 mg/dL (0.70-1.30); EST Glomerular Filtration Rate 34 mL/min (>60); Est Glom Filt Rate - Afr Amer 41 mL/min (>60); Glucose 129 mg/dL (74-106); Potassium 4.2 mmol/L (3.5-5.1); Sodium Level 142 mmol/L (136-145); Thyroid Stim Hormone (TSH) 3.09 uIU/mL (0.358-3.74)
[2022-03-14 08:29] LABS: Vitamin B12 827 pg/mL (211-911)
== END | disposition home or self-care (01) ==
LOC: LAB 06:57
PROVIDERS: PCP Family Medicine; Visit Provider Family Medicine
DX: R73.01 Impaired fasting glucose (principal); N18.32 Chronic kidney disease, stage 3b; E53.8 Deficiency of other specified B group vitamins; E03.9 Hypothyroidism, unspecified
CPT/HCPCS: 36415; 80048; 82043; 82570; 82607; 83036; 84443

== ENCOUNTER → 2022-08-14 | Outpatient (CLI) | payer MEDICARE, OTHER, SELFPAY ==
[2022-08-14 08:16] LABS: Absolute Lymphocyte Count 1.11 X10^3/uL (0.83-4.51); Absolute Neutrophil Count 2.3 X10^3/uL (2.0-7.7); Basophil# 0.05 X10^3/uL; Basophil% 1.2 % (0-1); Eosinophil# 0.25 X10^3/uL; Eosinophils% 6.1 % (0-5); Hematocrit 45.8 % (40-54); Hemoglobin 14.6 g/dL (13.0-16.5); Lymphocyte # 1.11 X10^3/ul (0.83-4.51); Lymphocyte % 27.1 % (19-41); Mean Corp Hgb Conc 31.9 g/dL (32-36); Mean Corpuscular Hgb 29.6 pg (27.0-32.0); Mean Corpuscular Volume 92.7 fL (80-94); Monocyte# 0.36 X10^3/uL; Monocyte% 8.8 % (0-10); NRBC Flagged by Analyzer 0 % (0-5); Neutrophil # 2.32 X10^3/uL (2.7-7.7); Neutrophil % 56.6 % (47-70); Platelet Count 168 K/mm3 (150-450); RBC Distribution Width CV 13.5 % (11.6-14.6); RBC Distribution Width SD 45.6 fl (35.1-43.9); Red Blood Count 4.94 M/mm3 (4.6-6.2); White Blood Count 4.1 K/mm3 (4.4-11.0)
[2022-08-14 08:57] LABS: ALB/GLOB Ratio 1.1 RATIO (0.9-2.4); AST(SGOT) 19 U/L (15-37); Alanine Aminotransfer ALT/SGPT 26 U/L (16-61); Albumin, Serum 3.7 g/dL (3.2-5.0); Alkaline Phosphatase 70 U/L (45-117); Anion Gap 7 (5-15); BUN 26 mg/dL (7-18); BUN/Creat Ratio 12.3 RATIO (10-20); Bilirubin, Direct 0.11 mg/dL (0.00-0.30); Calcium,Total 8.5 mg/dL (8.5-10.1); Chloride 107 mmol/L (98-107); Cholesterol 202 mg/dL (200); Creatinine, Serum 2.11 mg/dL (0.70-1.30); EST Glomerular Filtration Rate 33 mL/min (>60); Est Glom Filt Rate - Afr Amer 40 mL/min (>60); Globulin 3.4 g/dL (2.2-4.2); Glucose 113 mg/dL (74-106); High Density Lipoprotein 70 mg/dL; Potassium 4.4 mmol/L (3.5-5.1); Protein, Total 7.1 g/dL (6.4-8.2); Sodium Level 143 mmol/L (136-145); Triglycerides 85 mg/dL; Very Low Density Lipoprotein 17 mg/dL (5-40)
== END | disposition home or self-care (01) ==
PROVIDERS: Internal Medicine Cardiovascular Disease; PCP Family Medicine; Referring Provider Internal Medicine Rheumatology; Visit Provider Internal Medicine Rheumatology
DX: M06.4 Inflammatory polyarthropathy (principal); E11.9 Type 2 diabetes mellitus without complications; Z79.899 Other long term (current) drug therapy; M16.0 Bilateral primary osteoarthritis of hip; M47.897 Other spondylosis, lumbosacral region; I10 Essential (primary) hypertension; I25.10 Atherosclerotic heart disease of native coronary artery without angina pectoris; E03.9 Hypothyroidism, unspecified; E78.5 Hyperlipidemia, unspecified; N40.1 Benign prostatic hyperplasia with lower urinary tract symptoms
CPT/HCPCS: 36415; 80053; 80061; 82248; 85025

== ENCOUNTER → 2022-09-11 | Outpatient (CLI) | payer MEDICARE, OTHER, SELFPAY ==
[2022-09-11 07:47] LABS: Hemoglobin A1c 5.9 % (3.8-5.6)
[2022-09-11 07:49] LABS: Microalbumin,Random Urine 50.5 mg/L (NO RANGE EST.); Microalbumin:Creatinine Ratio 33.9 mg/g CRE (<30 mg/g CRE)
[2022-09-11 07:55] LABS: ALB/GLOB Ratio 1.1 RATIO (0.9-2.4); AST(SGOT) 18 U/L (15-37); Alanine Aminotransfer ALT/SGPT 25 U/L (16-61); Albumin, Serum 3.5 g/dL (3.2-5.0); Alkaline Phosphatase 67 U/L (45-117); Anion Gap 3 (5-15); BUN 30 mg/dL (7-18); BUN/Creat Ratio 13.9 RATIO (10-20); Calcium,Total 8.6 mg/dL (8.5-10.1); Chloride 110 mmol/L (98-107); Cholesterol 210 mg/dL (200); Creatinine, Serum 2.16 mg/dL (0.70-1.30); EST Glomerular Filtration Rate 32 mL/min (>60); Est Glom Filt Rate - Afr Amer 38 mL/min (>60); Globulin 3.3 g/dL (2.2-4.2); Glucose 106 mg/dL (74-106); High Density Lipoprotein 72 mg/dL; PSA,Total - Annual Screen 4.59 ng/mL (0.00-4.00); Potassium 4.5 mmol/L (3.5-5.1); Protein, Total 6.8 g/dL (6.4-8.2); Sodium Level 142 mmol/L (136-145); Triglycerides 80 mg/dL; Very Low Density Lipoprotein 16 mg/dL (5-40)
[2022-09-11 08:22] LABS: PTHIN 71.3 pg/mL (18.4-80.1)
== END | disposition home or self-care (01) ==
LOC: LAB 06:59
PROVIDERS: PCP Family Medicine; Referring Provider Family Medicine; Visit Provider Family Medicine
DX: R73.09 Other abnormal glucose (principal); N25.81 Secondary hyperparathyroidism of renal origin; N18.32 Chronic kidney disease, stage 3b; Z12.5 Encounter for screening for malignant neoplasm of prostate
CPT/HCPCS: 36415; 80053; 80061; 82043; 82570; 83036; 83970; 84153; G0103

== ENCOUNTER → 2022-11-29 | Outpatient (CLI) | payer MEDICARE, OTHER, SELFPAY | END | disposition home or self-care (01) | LOC: LAB 09:57 | PROVIDERS: PCP Family Medicine; Referring Provider Urology; Visit Provider Urology | DX: Z12.5 Encounter for screening for malignant neoplasm of prostate (principal) ==

== ENCOUNTER → 2023-02-12 | Outpatient (CLI) | payer MEDICARE, OTHER, SELFPAY ==
[2023-02-12 07:22] LABS: Absolute Lymphocyte Count 1.01 X10^3/uL (0.83-4.51); Absolute Neutrophil Count 2.9 X10^3/uL (2.0-7.7); Basophil# 0.05 X10^3/uL; Basophil% 1.1 % (0-1); Eosinophil# 0.21 X10^3/uL; Eosinophils% 4.6 % (0-5); Hematocrit 46.4 % (40-54); Hemoglobin 15.1 g/dL (13.0-16.5); Lymphocyte # 1.01 X10^3/ul (0.83-4.51); Mean Corp Hgb Conc 32.5 g/dL (32-36); Mean Corpuscular Volume 92.1 fL (80-94); Mean Platelet Vol. 10.2 fl (6.2-12.0); Monocyte# 0.45 X10^3/uL; Monocyte% 9.8 % (0-10); NRBC Flagged by Analyzer 0 % (0-5); Neutrophil # 2.86 X10^3/uL (2.7-7.7); Neutrophil % 62.1 % (47-70); Platelet Count 147 K/mm3 (150-450); RBC Distribution Width CV 13.5 % (11.6-14.6); RBC Distribution Width SD 45.5 fl (35.1-43.9); Red Blood Count 5.04 M/mm3 (4.6-6.2); White Blood Count 4.6 K/mm3 (4.4-11.0)
[2023-02-12 07:52] LABS: ALB/GLOB Ratio 1.1 RATIO (0.9-2.4); AST(SGOT) 18 U/L (15-37); Alanine Aminotransfer ALT/SGPT 25 U/L (16-61); Albumin, Serum 3.7 g/dL (3.2-5.0); Alkaline Phosphatase 77 U/L (45-117); Anion Gap 6 (5-15); BUN 40 mg/dL (7-18); BUN/Creat Ratio 18.9 RATIO (10-20); Calcium,Total 8.6 mg/dL (8.5-10.1); Chloride 109 mmol/L (98-107); Creatinine, Serum 2.12 mg/dL (0.70-1.30); EST Glomerular Filtration Rate 32 mL/min (>60); Est Glom Filt Rate - Afr Amer 39 mL/min (>60); Globulin 3.5 g/dL (2.2-4.2); Glucose 95 mg/dL (74-106); Potassium 4.4 mmol/L (3.5-5.1); Protein, Total 7.2 g/dL (6.4-8.2); Sodium Level 141 mmol/L (136-145)
== END | disposition home or self-care (01) ==
LOC: LAB 07:08
PROVIDERS: PCP Family Medicine; Referring Provider Internal Medicine Rheumatology; Visit Provider Internal Medicine Rheumatology
DX: M06.4 Inflammatory polyarthropathy (principal); Z79.899 Other long term (current) drug therapy; E78.00 Pure hypercholesterolemia, unspecified; E78.2 Mixed hyperlipidemia
CPT/HCPCS: 36415; 80053; 85025

== ENCOUNTER → 2023-03-14 | Outpatient (CLI) | payer MEDICARE, OTHER, SELFPAY ==
[2023-03-14 07:07] LABS: Absolute Lymphocyte Count 1.12 X10^3/uL (0.83-4.51); Absolute Neutrophil Count 2.6 X10^3/uL (2.0-7.7); Basophil# 0.06 X10^3/uL; Basophil% 1.4 % (0-1); Eosinophils% 4.6 % (0-5); Hematocrit 46.5 % (40-54); Hemoglobin 14.7 g/dL (13.0-16.5); Lymphocyte # 1.12 X10^3/ul (0.83-4.51); Lymphocyte % 25.6 % (19-41); Mean Corp Hgb Conc 31.6 g/dL (32-36); Mean Corpuscular Hgb 29.9 pg (27.0-32.0); Mean Corpuscular Volume 94.5 fL (80-94); Mean Platelet Vol. 10.5 fl (6.2-12.0); Monocyte# 0.38 X10^3/uL; Monocyte% 8.7 % (0-10); NRBC Flagged by Analyzer 0 % (0-5); Neutrophil # 2.58 X10^3/uL (2.7-7.7); Platelet Count 144 K/mm3 (150-450); RBC Distribution Width CV 13.7 % (11.6-14.6); RBC Distribution Width SD 47.6 fl (35.1-43.9); Red Blood Count 4.92 M/mm3 (4.6-6.2); White Blood Count 4.4 K/mm3 (4.4-11.0)
[2023-03-14 07:44] LABS: ALB/GLOB Ratio 1.1 RATIO (0.9-2.4); AST(SGOT) 16 U/L (15-37); Alanine Aminotransfer ALT/SGPT 22 U/L (16-61); Albumin, Serum 3.6 g/dL (3.2-5.0); Alkaline Phosphatase 71 U/L (45-117); Anion Gap 0 (5-15); BUN 25 mg/dL (7-18); BUN/Creat Ratio 11.7 RATIO (10-20); Calcium,Total 8.6 mg/dL (8.5-10.1); Chloride 113 mmol/L (98-107); Cholesterol 209 mg/dL (200); Creatinine, Serum 2.14 mg/dL (0.70-1.30); EST Glomerular Filtration Rate 32 mL/min (>60); Est Glom Filt Rate - Afr Amer 39 mL/min (>60); Globulin 3.4 g/dL (2.2-4.2); Glucose 98 mg/dL (74-106); High Density Lipoprotein 72 mg/dL; PSA,Total- Diagnostic 4.89 ng/mL (0.0-4.0); Potassium 4.7 mmol/L (3.5-5.1); Sodium Level 142 mmol/L (136-145); Thyroid Stim Hormone (TSH) 3.15 uIU/mL (0.358-3.74); Triglycerides 97 mg/dL; Very Low Density Lipoprotein 19 mg/dL (5-40)
[2023-03-14 09:02] LABS: Microalbumin,Random Urine 53.9 mg/L (NO RANGE EST.); Microalbumin:Creatinine Ratio 42.8 mg/g CRE (<30 mg/g CRE)
== END | disposition home or self-care (01) ==
LOC: LAB 06:44
PROVIDERS: PCP Family Medicine; Referring Provider Family Medicine; Visit Provider Family Medicine
DX: R73.03 Prediabetes (principal); N18.32 Chronic kidney disease, stage 3b; I25.10 Atherosclerotic heart disease of native coronary artery without angina pectoris; I12.9 Hypertensive chronic kidney disease with stage 1 through stage 4 chronic kidney disease, or unspecified chronic kidney disease; E03.9 Hypothyroidism, unspecified; R97.20 Elevated prostate specific antigen [PSA]
CPT/HCPCS: 36415; 80053; 80061; 82043; 82570; 83036; 84153; 84443; 85025

== ENCOUNTER 2023-05-25 07:47 | Emergency (ER) | payer MEDICARE, OTHER, SELFPAY ==
[2023-05-25 07:48] VITALS: BP 155/85; PULSE 116; RESP 18; TEMP 36.6; O2SAT 97; BMI 26.5
[2023-05-25 07:52] VITALS: BP 135/80; PULSE 112; RESP 18; TEMP 36.4; O2SAT 95; BMI 27.8
--- NOTE | 2023-05-25 07:57 | RAD_ITS ---
INDICATION: Chest pain EXAMINATION/TECHNIQUE: X-RAY - XR Chest 1 View COMPARISON: 05/21/2020 FINDINGS: LINES/DEVICES: None. LUNGS: No consolidation, edema or effusion. No pneumothorax. MEDIASTINUM AND CARDIOVASCULAR STRUCTURES: Cardiac silhouette not enlarged. Central airways and mediastinal contour are unremarkable. BONES AND SOFT TISSUES: Unchanged osseous structures. Sideplate and screws are again seen in the left clavicle. RAD/Chest 1 View (Portable) IMPRESSION: No radiographic evidence of acute cardiopulmonary disease. Electronically Signed: John Workman MD at 8:41 EDT ,
--- NOTE | 2023-05-25 07:57 | EKG12_ITS ---
Test Reason : Blood Pressure : / mmHG Vent. Rate : 112 BPM Atrial Rate : 112 BPM P-R Int : 180 ms QRS Dur : 090 ms QT Int : 324 ms P-R-T Axes : 043 -04 063 degrees QTc Int : 442 ms Sinus tachycardia Otherwise normal ECG Confirmed by KELLI SORIANO MD ([id number]), publication editor NATACHA CARUSO ([id number]) on 06/03/2023 6:59:20 AM Referred By: CHRISTIE Confirmed By:KELLI SORIANO MD
--- NOTE | 2023-05-25 07:59 | ED.VIS.CHEST ---
HPI History of Present Illness Chief Complaint: Chest Pain Informant: patient Onset/Context/Timing Onset: Yesterday Timing: Continuous Quality: Positive for - (Gnawing) Location: Substernal Current Severity: Moderate Maximum Severity: Moderate Narrative Narrative: Patient presents secondary to gnawing constant chest pain that started around 6 PM last evening. He rates his pain about an 8 out of 10. He reports some slight heaviness in his breathing. Pain started about an hour after eating but does not feel it is related to food and denies reflux. Patient does have coronary artery disease and has 3 stents. He did have 1 prior NSTEMI. [facility] Medical History DEENA (acute kidney injury) Arthritis Atherosclerosis of [place] coronary artery of [place] heart without angina pectoris BPH (benign prostatic hyperplasia) Calculus of proximal right ureter Chronic kidney disease (CKD) Dilated aortic root Essential (primary) hypertension History of non-ST elevation myocardial infarction (NSTEMI) (12/2015) Hyperlipidemia Hypothyroidism Mass of anus Obstructive sleep apnea Plantar fasciitis Tubular adenoma of colon (09/26/20) Type 2 diabetes mellitus without complications Home Medications aspirin 81 mg tablet,delayed release (Adult Aspirin Regimen) 81 mg PO QDAY #90 tabs 05/26/21 [Rx Last Taken Unknown] hydroxychloroquine 200 mg tablet 200 mg PO DAILY 05/26/21 [History Last Taken Unknown] metoprolol succinate 25 mg tablet,extended release 24 hr See Rx Instructions .Route .COMPLEX #45 tabs 07/13/22 [Rx Last Taken Unknown] cholecalciferol (vitamin D3) 50 mcg (2,000 unit) capsule 4,000 unit PO DAILY SUPPLEMENT 08/15/22 [History Last Taken Unknown] mecobalamin (vitamin B12) 1,000 mcg chewable tablet 1,000 mcg PO DAILY 08/15/22 [History Last Taken Unknown] hydrocodone-acetaminophen 5-325mg 5mg-325mg 1 tab PO Q6H PRN PRN Pain 3 days #10 TABLETS 05/25/23 [Rx Last Taken Unknown] Allergy/AdvReac Type Severity Reaction Status Date / Time rosuvastatin [From Crestor] AdvReac Severe Myalgias Verified 05/25/23 07:55 and joint pain Family History Mother CAD (coronary artery disease) Hx of CABG Father CAD (coronary artery disease) Hx of CABG Brother CAD (coronary artery disease) Hx of CABG Myocardial infarction Diabetes Surgical History History of colonoscopy (2007) History of colonoscopy (09/26/20) History of coronary artery stent placement (12/25/15) History of esophagogastroduodenoscopy (EGD) (2005) History of hemorrhoidectomy History of left heart catheterization (12/2015) History of nasal septoplasty History of ureter stent (12/2019) Social History Smoking Status: Former smoker alcohol intake: current alcohol intake frequency: a few times a week Alcohol type: beer substance use type: does not use caffeine: Yes Type: coffee what type of physical activity do you participate in: walking frequency: daily duration: 30-45 minutes/day seatbelt use: always do you feel safe at home: Yes ROS ROS ED Constitutional Constitutional ED: Denies chills or fever(s) Eyes Eyes: Denies change in vision or discharge from eye(s) ENT ENT ED: Denies discharge from eye(s), rhinorrhea or sore throat Cardiovascular Cardiovascular: Reports chest pain; Denies palpitations Respiratory/Chest Respiratory/Chest: Reports dyspnea; Denies cough Gastrointestinal Gastrointestinal: Denies abdominal pain, nausea or vomiting Musculoskeletal Musculoskeletal: Denies back pain or extremity pain Integumentary Denies Abrasions or rash Neurologic Neurologic: Denies headache(s) or weakness Psychiatric Psychiatric: Denies anxiety or depression Allergic/Immunologic Allergic/Immunologic ED: Denies lip swelling or urticaria EXAM Physical Exam Const Vital Signs: 05/25/23 07:52 05/25/23 07:54 05/25/23 07:48 Temperature 97.6 F L 97.8 F Temperature Source Temporal Temporal Pulse Rate 112 H 116 H Respiratory Rate 18 18 Respiratory Effort Short of Breath Blood Pressure 135/80 H 155/85 H Blood Pressure Mean 98 108 Pulse Ox 95 97 Oxygen Delivery Method Room Air Room Air 05/25/23 07:57 05/25/23 08:43 05/25/23 09:38 Temperature Temperature Source Pulse Rate 104 H 64 Respiratory Rate 14 Respiratory Effort Blood Pressure 129/82 H 126/78 H Blood Pressure Mean 94 Pulse Ox 98 Oxygen Delivery Method Room Air Room Air Positive well nourished and well developed General Appearance ED: well developed HEENT Reports normocephalic and head/scalp atraumatic Eyes PERRL and EOMs intact bilaterally Neck supple Chest Wall inspection of chest normal and palpation of chest normal Resp normal respiratory effort and clear to auscultation bilaterally Cardio regular rhythm Rate: tachycardic GI soft to palpation and non-tender Extremity normal to inspection Neuro oriented x3 and no sensory deficits noted Sensorium / Orientation: alert Motor Exam: strength 5/5 throughout Psych mental status grossly normal Skin no rashes or lesions noted Heart Score History: Moderately Suspicious ECG: Normal Age: >/= 65 years Risk Factors: >/= 3 Risk Factors or History of CAD Troponin: </= Normal Limit Score: 5 MDM MDM MDM Narrative Medical decision making narrative: Patient placed on nuclear monitoring technician. Patient given baby aspirin along with morphine and Zofran for pain. Labwork obtained to evaluate for leukocytosis, anemia, and electrolyte derangement. EKG obtained to evaluate for cardiac arrhythmia/ischemia. Chest x-ray obtained to evaluate for acute lung pathology, cardiac size, or mediastinal abnormality. History & Record Review Discussion w/independent historian: Patient and Significant other Additional record(s) reviewed:: Prior outpatient record, Prior ED visit and Prior labs Lab Data Attestation: I reviewed the patient's lab results. Labs: Laboratory Results - last 24 hr 05/25/23 05/25/23 08:00 10:41 WBC 8.8 RBC 5.12 Hgb 15.4 Hct 48.1 MCV 93.9 MCH 30.1 MCHC 32.0 RDW Std Deviation 46.2 H RDW Coeff of [place] 13.4 Plt Count 138 L MPV 10.4 Immature Gran % (Auto) 0.300 Neut % (Auto) 78.9 H Lymph % (Auto) 10.0 L [place] % (Auto) 9.8 Eos % (Auto) 0.5 Baso % (Auto) 0.5 Absolute Neuts (auto) 6.9 Absolute Lymphs (auto) 0.88 Nucleated RBC % 0 D-Dimer Quant (PE/DVT) 0.35 Sodium 138 Potassium 3.7 Chloride 108 H Carbon Dioxide 25.0 Anion Gap 5 BUN 29 H Creatinine 2.12 H Estim Creat Clear Calc 30.61 Est GFR (MDRD) Af Amer 39 L Est GFR (MDRD) Non-Af 32 L BUN/Creatinine Ratio 13.7 Glucose 132 H Calcium 8.6 Total Bilirubin 0.90 Direct Bilirubin 0.24 AST 15 ALT 21 Alkaline Phosphatase 66 Troponin I High Sens 5 6 Total Protein 7.4 Albumin 3.7 Globulin 3.7 Lipase 34 Radiography Chest X-Ray - ED: 1 View, Read by ED Physician and Chronic Changes Diagnostic Testing: Clinical Impression(s) from Imaging Studies Chest X-Ray 05/25/23 07:57 IMPRESSION: No radiographic evidence of acute cardiopulmonary disease. Electronically Signed: John Workman MD at 8:41 EDT , EKG Initial EKG: Attestation: I personally reviewed and interpreted this EKG as follows: Interpretation: Sinus Tachycardia (Sinus tachycardia at 112. 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 Chemistry studies reveal a BUN of 29 and a creatinine of 2.12. This appears consistent with his baseline. D-dimer is normal at 0.35. Initial troponin is 5 with a repeat 2-hour troponin of 6. Patient does seem to have chest wall pain that is worse with movement. Given his renal function I did not want to give him anti-inflammatories. I did recommend Voltaren cream topically. He was given a Lidoderm patch here. Patient reported no significant improvement in his pain with morphine and was given 1 single dose of nitro. This did not significant change his pain either. At this time patient seems to have chest wall strain. His cardiac enzymes are negative with nearly 18 hours of pain. EKG reveals no ischemia. D-dimer is negative and patient is not hypoxic so I do not believe he has evidence of pulmonary embolism. Patient be given a prescription for [place] and encouraged to use Voltaren cream topically on his chest wall. Return instructions given. Discharge Plan Triage Chief Complaint: Chest Pain ED Provider: Anju Alexis Dx/Rx/DC Orders Clinical Impression: Chest wall pain Instructions: ED Chest Wall Strain Prescriptions: New hydrocodone-acetaminophen 5-325 mg tablet 1 tab PO Q6H PRN PRN (Reason: Pain) 3 Days Qty: 10 0RF No Action hydroxychloroquine 200 mg tablet 200 mg PO DAILY aspirin [Adult Aspirin Regimen] 81 mg tablet,delayed release (DR/EC) 81 mg PO QDAY Qty: 90 3RF mecobalamin (vitamin B12) 1,000 mcg tablet,chewable 1,000 mcg PO DAILY cholecalciferol (vitamin D3) 50 mcg (2,000 unit) capsule 4,000 unit PO DAILY metoprolol succinate 25 mg tablet extended release 24 hr See Rx Instructions .ROUTE .COMPLEX Qty: 45 3RF Dose Instruction: TAKE ONE-HALF (1/2) TABLET DAILY FOR BLOOD PRESSURE Rx Instructions: TAKE ONE-HALF (1/2) TABLET DAILY FOR BLOOD PRESSURE Primary Care Provider: Raj Chow Referrals: Raj Chow, DO [Primary Care Provider] - 3-5 Days if not improving Disposition Disposition: Home, Self Care
[2023-05-25] MEDS: Aspirin 81 MG TAB.CHEW 324 MG PO (08:09)
[2023-05-25] MEDS: Morphine 4 MG/ML Syringe IV (08:09)
[2023-05-25] MEDS: Ondansetron 4 MG/2 ML Vial IV (08:09)
[2023-05-25 08:14] LABS: Absolute Lymphocyte Count 0.88 X10^3/uL (0.83-4.51); Absolute Neutrophil Count 6.9 X10^3/uL (2.0-7.7); Basophil# 0.04 X10^3/uL; Basophil% 0.5 % (0-1); Eosinophil# 0.04 X10^3/uL; Eosinophils% 0.5 % (0-5); Hematocrit 48.1 % (40-54); Hemoglobin 15.4 g/dL (13.0-16.5); Lymphocyte # 0.88 X10^3/ul (0.83-4.51); Mean Corpuscular Hgb 30.1 pg (27.0-32.0); Mean Corpuscular Volume 93.9 fL (80-94); Mean Platelet Vol. 10.4 fl (6.2-12.0); Monocyte# 0.86 X10^3/uL; Monocyte% 9.8 % (0-10); NRBC Flagged by Analyzer 0 % (0-5); Neutrophil # 6.92 X10^3/uL (2.7-7.7); Neutrophil % 78.9 % (47-70); Platelet Count 138 K/mm3 (150-450); RBC Distribution Width CV 13.4 % (11.6-14.6); RBC Distribution Width SD 46.2 fl (35.1-43.9); Red Blood Count 5.12 M/mm3 (4.6-6.2); White Blood Count 8.8 K/mm3 (4.4-11.0)
[2023-05-25] MEDS: 0.9% Normal Saline (1000mL) 1,000 ML 150 ML IV (08:17)
[2023-05-25 08:31] LABS: D-Dimer Quantitative (DVT/PE) 0.35 FEU/ug/m (0.27-0.49)
[2023-05-25 08:36] LABS: AST(SGOT) 15 U/L (15-37); Alanine Aminotransfer ALT/SGPT 21 U/L (16-61); Albumin, Serum 3.7 g/dL (3.2-5.0); Alkaline Phosphatase 66 U/L (45-117); Anion Gap 5 (5-15); BUN 29 mg/dL (7-18); BUN/Creat Ratio 13.7 RATIO (10-20); Bilirubin, Direct 0.24 mg/dL (0.00-0.30); Calcium,Total 8.6 mg/dL (8.5-10.1); Chloride 108 mmol/L (98-107); Creatinine, Serum 2.12 mg/dL (0.70-1.30); EST Glomerular Filtration Rate 32 mL/min (>60); Est Glom Filt Rate - Afr Amer 39 mL/min (>60); Estimated Creatinine Clearance 30.61 ml/min; Globulin 3.7 g/dL (2.2-4.2); Glucose 132 mg/dL (74-106); Lipase 34 U/L (13-75); Potassium 3.7 mmol/L (3.5-5.1); Protein, Total 7.4 g/dL (6.4-8.2); Sodium Level 138 mmol/L (136-145); Troponin-I HS (w/2H Reflex) 5 pg/mL (3.0-78.0)
[2023-05-25 08:43] VITALS: BP 129/82; PULSE 104
[2023-05-25] MEDS: Nitroglycerin SL (ED/IMG/CATH) 0.4 MG TABLET SL (08:43)
[2023-05-25 09:38] VITALS: BP 126/78; PULSE 64; RESP 14; O2SAT 98
[2023-05-25] MEDS: Lidocaine 5% Patch 1 PATCH TOPICAL (09:49)
[2023-05-25 10:11] LABS: Reflex Troponin-HS? (from REC) Y
[2023-05-25 11:17] LABS: Troponin-I HS 6 pg/mL (3.0-78.0)
[2023-05-25 12:00] VITALS: BP 115/78; PULSE 64; RESP 16; O2SAT 99
== END 2023-05-25 12:03 | disposition home or self-care (01) ==
PROVIDERS: Emergency Provider Emergency Medicine; PCP Family Medicine; Visit Provider Emergency Medicine
DX: R07.89 Other chest pain (principal); N18.9 Chronic kidney disease, unspecified; I25.10 Atherosclerotic heart disease of native coronary artery without angina pectoris; G47.33 Obstructive sleep apnea (adult) (pediatric); I25.2 Old myocardial infarction; Z87.891 Personal history of nicotine dependence; Z95.5 Presence of coronary angioplasty implant and graft
CPT/HCPCS: 71045; 80048; 80076; 83690; 84484; 85025; 85379; 87811; 93005; 96374; 96375; 99285; J7030; A4216; J2405

== ENCOUNTER 2023-06-07 15:12 | Emergency (ER) | payer MEDICARE, OTHER, SELFPAY ==
[2023-06-07 15:13] VITALS: BP 145/85; PULSE 111; RESP 18; TEMP 36.3; O2SAT 94; BMI 26.5
[2023-06-07 15:28] LABS: Bacteria 0 SEEN /hpf (None Seen); Mucous, Urine 0 SEEN /hpf (<or=2+); White Blood Cells 0 SEEN /hpf (0-5)
[2023-06-07 15:42] LABS: Color, Urine Yellow (Yellow); Glucose, Dipstick 50 mg/dl (Normal); Ketone-Dipstick Negative (Negative); Leukocyte Esterase-Dipstick Negative /ul (Negative); Nitrite-Dipstick Negative (Negative); Occult Blood-Urine 150 /ul (Negative); Protein-Dipstick 30 mg/dl (Negative); Urine Bilirubin Dipstick Negative (Negative); Urine Clarity Sl. Cloudy (Clear); Urine Urobilinogen Normal (Normal)
[2023-06-07 15:50] LABS: Amorphous Sediment 1+ URATE; Red Blood Cells-Urine 5-10 SEEN /hpf (0-5); Squamous Epithelial Cells - UA 0-5 SEEN /hpf (0-5)
--- NOTE | 2023-06-07 16:04 | CT_ITS ---
EXAM: CT ABDOMEN AND PELVIS WITHOUT INTRAVENOUS CONTRAST CLINICAL INDICATION: Kidney Stone RIGHT FLANK PAIN TECHNIQUE: Helically acquired images were obtained of the abdomen and pelvis without intravenous contrast. This CT exam was performed using one or more of the following dose reduction techniques: automated exposure control, adjustment of the mA and/or kV according to patient size, and/or use of iterative reconstruction technique. COMPARISON: 05/21/2020. FINDINGS: LOWER THORAX: Small pericardial effusion, new compared to the prior study. Trace left pleural effusion. ABDOMEN: LIVER: Unremarkable. Homogeneous. GALLBLADDER AND BILE DUCTS: Unremarkable. No calcified gallstones. No gallbladder distention or wall edema. No intra- or extrahepatic biliary ductal dilation. PANCREAS: Unremarkable. No focal cystic mass. SPLEEN: Unremarkable. Normal size without focal cystic or solid mass. ADRENALS: Unremarkable. No nodules. KIDNEYS AND URETERS: Mild right hydronephrosis. Nonobstructing right renal calculi measure up to 5 mm. There is a 0.4 x 0.6 x 0.6 cm stone in the right proximal ureter. Distal ureter is normal in course and caliber. Left kidney is unremarkable. Normal renal size and position. STOMACH AND BOWEL: Unremarkable. No stomach or bowel distention. No focal inflammatory change. PELVIS: APPENDIX: Normal visualized appendix. BLADDER: Unremarkable. REPRODUCTIVE: Prostate gland measures 6.5 x 5.7 x 5.9 cm. Brachytherapy seeds in the prostate. ABDOMEN and PELVIS: INTRAPERITONEAL SPACE: Unremarkable. No ascites or other fluid collection. No free air. BONES/JOINTS: Unremarkable. No suspicious lytic or blastic abnormality. SOFT TISSUES: Unremarkable. No discrete abdominal or pelvic wall hernia. VASCULATURE: Unremarkable. Abdominal aorta is normal in caliber. LYMPH NODES: Unremarkable. No enlarged lymph nodes. CT/Abdomen/Pelvis without Cont IMPRESSION: 1. Stone in the right proximal ureter with mild proximal hydronephrosis. 2. Additional nonobstructing right renal stones. 3. Small pericardial effusion. 4. Trace left pleural effusion. 5. Prostatic enlargement. Electronically Signed: Kenna Rocha MD at 17:34 EDT [place] Location ID and State: [id number] / Tel , Service support ,
--- NOTE | 2023-06-07 16:07 | ED.VIS.GI ---
HPI HPI - GI History of Present Illness Chief Complaint: Flank Pain Narrative Narrative: Patient was awakened in the middle of the night with right flank pain radiating into his groin and testicle. Thinks it feels like a kidney stone but it has been a long time since he had 1. No worse with movement. Not colicky. No nausea or vomiting. No urinary symptoms or hematuria. States he did not feel nauseated when he had stones in the past either. Has not required surgery for them in the past. PFSH PFSH Medical History DEENA (acute kidney injury) Arthritis Atherosclerosis of [place] coronary artery of [place] heart without angina pectoris BPH (benign prostatic hyperplasia) Calculus of proximal right ureter Chronic kidney disease (CKD) Dilated aortic root Essential (primary) hypertension History of non-ST elevation myocardial infarction (NSTEMI) (12/2015) Hyperlipidemia Hypothyroidism Mass of anus Obstructive sleep apnea Plantar fasciitis Tubular adenoma of colon (09/26/20) Type 2 diabetes mellitus without complications Home Medications aspirin 81 mg tablet,delayed release (Adult Aspirin Regimen) 81 mg PO QDAY #90 tabs 05/26/21 [Rx Last Taken Unknown] hydroxychloroquine 200 mg tablet 200 mg PO DAILY 05/26/21 [History Last Taken Unknown] metoprolol succinate 25 mg tablet,extended release 24 hr See Rx Instructions .Route .COMPLEX #45 tabs 07/13/22 [Rx Last Taken Unknown] cholecalciferol (vitamin D3) 50 mcg (2,000 unit) capsule 4,000 unit PO DAILY SUPPLEMENT 08/15/22 [History Last Taken Unknown] mecobalamin (vitamin B12) 1,000 mcg chewable tablet 1,000 mcg PO DAILY 08/15/22 [History Last Taken Unknown] hydrocodone-acetaminophen 5-325mg 5mg-325mg 1 tab PO Q6H PRN PRN Pain 3 days #10 TABLETS 05/25/23 [Rx Last Taken Unknown] oxycodone-acetaminophen 5 mg-325 mg tablet 1 tab PO Q6H PRN PRN pain 5 days #20 TABLETS 06/07/23 [Rx Last Taken Unknown] Allergy/AdvReac Type Severity Reaction Status Date / Time rosuvastatin [From Crestor] AdvReac Severe Myalgias Verified 06/07/23 15:13 and joint pain Family History Mother CAD (coronary artery disease) Hx of CABG Father CAD (coronary artery disease) Hx of CABG Brother CAD (coronary artery disease) Hx of CABG Myocardial infarction Diabetes Surgical History History of colonoscopy (2007) History of colonoscopy (09/26/20) History of coronary artery stent placement (12/25/15) History of esophagogastroduodenoscopy (EGD) (2005) History of hemorrhoidectomy History of left heart catheterization (12/2015) History of nasal septoplasty History of ureter stent (12/2019) Social History Smoking Status: Former smoker alcohol intake: current alcohol intake frequency: a few times a week Alcohol type: beer substance use type: does not use caffeine: Yes Type: coffee what type of physical activity do you participate in: walking frequency: daily duration: 30-45 minutes/day seatbelt use: always do you feel safe at home: Yes ROS ROS ED Constitutional Constitutional ED: Denies chills or fever(s) Eyes Eyes: Denies change in vision or diplopia ENT ENT ED: Denies rhinorrhea or sore throat Cardiovascular Cardiovascular: Denies chest pain or palpitations Respiratory/Chest Respiratory/Chest: Denies cough or dyspnea Gastrointestinal Gastrointestinal: Reports abdominal pain; Denies diarrhea, nausea or vomiting Genitourinary Genitourinary ED: Reports as per HPI and flank pain; Denies dysuria or hematuria Musculoskeletal Musculoskeletal: Reports back pain; Denies neck pain Integumentary Denies abscess or rash Neurologic Neurologic: Denies headache(s), paresthesias or weakness Psychiatric Psychiatric: Denies anxiety or suicidal thoughts EXAM Physical Exam Const Vital Signs: 06/07/23 15:13 06/07/23 16:05 Temperature 97.4 F L Temperature Source Temporal Pulse Rate 111 H Respiratory Rate 18 Respiratory Pattern Normal Blood Pressure 145/85 H Blood Pressure Mean 105 Pulse Ox 94 Oxygen Delivery Method Room Air Positive well nourished and well developed General Appearance ED: well developed and NAD HEENT Reports moist mucous membranes normocephalic and atraumatic Eyes PERRL and EOMs intact bilaterally Neck full ROM and supple Resp normal respiratory effort and clear to auscultation bilaterally Cardio regular rate, regular rhythm and no murmurs GI non-distended GI Narrative: Tenderness throughout right side no guarding or rebound. No pulsatile mass. No Kodak sign. No Triplett Burgess sign. Auscultation: normoactive bowel sounds Palpation: soft Narrative: Very mild tenderness in the right testicle, normal cremasterics, normal lie, no blue dot sign. No palpable mass. No hernia. Back/Spine no CVA tenderness General Back: other FROM Extremity normal to inspection General Extremety ED: Negative for edema, pulses abnormal or tenderness General Extremity: Negative for edema or pulses abnormal Neuro oriented x3, CN's II-XII intact bilaterally and no sensory deficits noted Sensorium / Orientation: awake and alert Motor Exam: strength 5/5 throughout Skin no rashes or lesions noted and no wounds MDM MDM MDM Narrative Medical decision making narrative: Patient very mildly tender in the right testicle, but not to the degree that I suspect that being the primary source of his pain. I suspect this is a kidney stone with referred pain to the right scrotum. Patient is in agreement that is more likely. Labs are unremarkable except for his chronic kidney disease, urine shows blood no signs of infection, and CT of the abdomen/pelvis shows a right proximal ureteral stone 6 mm at the largest dimension according to the radiology report. I reviewed the images and that, I agree with it. Patient was given several doses of morphine, he was still in pain but appeared to be tolerating it. He is ambulatory to and from the restroom without difficulty. He thought he would like to be admitted for pain control, not sure if he will be able to sleep like this or not. I inquired, we do not have urology coverage at this time it is Saturday evening, nor do we have them the whole weekend. I advised him that if he simply just wanted 23 hours of pain control, I could inquire about admitting him to the hospitalist service, but if he wanted to have an appropriate admission for this, it would require transfer to a facility where urology was available to see if stenting him would be appropriate or indicated or not. After considering all of this, he declines both of these offers and prefers to go home with pain medication states he will always come back if he gets worse, which I am okay with. Lab Data Attestation: I reviewed the patient's lab results. Labs: Laboratory Results - last 24 hr 06/07/23 06/07/23 06/07/23 15:22 16:02 16:30 WBC 10.3 RBC 4.64 Hgb 13.8 Hct 43.5 MCV 93.8 MCH 29.7 MCHC 31.7 L RDW Std Deviation 44.4 H RDW Coeff of [place]il[place] 12.9 Plt Count 348 MPV 9.5 Immature Gran % (Auto) 0.700 Neut % (Auto) 84.7 H Lymph % (Auto) 5.4 L [place] % (Auto) 8.5 Eos % (Auto) 0.3 Baso % (Auto) 0.4 Absolute Neuts (auto) 8.7 H Absolute Lymphs (auto) 0.55 L Nucleated RBC % 0 Differential Comment SCANNED Sodium 137 Potassium 4.2 Chloride 107 Carbon Dioxide 27.0 Anion Gap 3 L BUN 35 H Creatinine 2.57 H Estim Creat Clear Calc 25.25 Est GFR (MDRD) Af Amer 31 L Est GFR (MDRD) Non-Af 26 L BUN/Creatinine Ratio 13.6 Glucose 158 H Calcium 8.9 Urine Color Yellow Yellow Urine Clarity Sl. Cloudy Sl. Cloudy Urine pH 6.0 5.0 Ur Specific [place] 1.020 1.020 Urine Protein 30 H 30 H Urine Glucose (UA) 50 H Normal Urine Ketones Negative Negative Urine Occult Blood 150 H 150 H Urine Nitrite Negative Negative Urine Bilirubin Negative Negative Urine Urobilinogen Normal Normal Ur Leukocyte Esterase Negative Negative Urine RBC 5-10 SEEN 5-10 SEEN Urine WBC 0 SEEN 0 SEEN Ur Squamous Epith Cells 0-5 SEEN 0-5 SEEN Amorphous Sediment 1+ URATE 1+ URATE Urine Bacteria 0 SEEN 0 SEEN Fine Granular Casts 0-5 SEEN Urine Mucus 0 SEEN 0 SEEN Radiography Diagnostic Testing: Clinical Impression(s) from Imaging Studies Abdomen/Pelvis CT 06/07/23 16:04 IMPRESSION: 1. Stone in the right proximal ureter with mild proximal hydronephrosis. 2. Additional nonobstructing right renal stones. 3. Small pericardial effusion. 4. Trace left pleural effusion. 5. Prostatic enlargement. Electronically Signed: Kenna Rocha MD at 17:34 EDT Reading Location ID and State: [id number] / Tel , Service support , Discharge Plan Triage Chief Complaint: Flank Pain ED Provider: Israel Hagan Dx/Rx/DC Orders Clinical Impression: Ureteral colic, Urolithiasis Instructions: ED Kidney Stone w/ Colic Prescriptions: New oxycodone-acetaminophen [oxycodone-acetaminophen] 5-325 mg tablet 1 tab PO Q6H PRN PRN (Reason: pain) 5 Days Qty: 20 0RF No Action hydroxychloroquine 200 mg tablet 200 mg PO DAILY aspirin [Adult Aspirin Regimen] 81 mg tablet,delayed release (DR/EC) 81 mg PO QDAY Qty: 90 3RF mecobalamin (vitamin B12) 1,000 mcg tablet,chewable 1,000 mcg PO DAILY cholecalciferol (vitamin D3) 50 mcg (2,000 unit) capsule 4,000 unit PO DAILY hydrocodone-acetaminophen 5-325 mg tablet 1 tab PO Q6H PRN PRN (Reason: Pain) 3 Days Qty: 10 0RF metoprolol succinate 25 mg tablet extended release 24 hr See Rx Instructions .ROUTE .COMPLEX Qty: 45 3RF Dose Instruction: TAKE ONE-HALF (1/2) TABLET DAILY FOR BLOOD PRESSURE Rx Instructions: TAKE ONE-HALF (1/2) TABLET DAILY FOR BLOOD PRESSURE Primary Care Provider: Raj Chow Referrals: Joseph Mora MD [Med Staff - Active Staff] - As soon as possible (Or return to the ER if your symptoms are out of control) Raj Chow, DO [Primary Care Provider] - Activity Restrictions/Additional Instructions: If you need more pain medication, you may take up to 2 tablets of the new prescription every 4-6 hours. Disposition Disposition: Home, Self Care
[2023-06-07] MEDS: Ondansetron 4 MG/2 ML Vial IV (16:13)
[2023-06-07 16:14] LABS: Absolute Lymphocyte Count 0.55 X10^3/uL (0.83-4.51); Absolute Neutrophil Count 8.7 X10^3/uL (2.0-7.7); Basophil# 0.04 X10^3/uL; Basophil% 0.4 % (0-1); Eosinophil# 0.03 X10^3/uL; Eosinophils% 0.3 % (0-5); Hematocrit 43.5 % (40-54); Hemoglobin 13.8 g/dL (13.0-16.5); Lymphocyte # 0.55 X10^3/ul (0.83-4.51); Lymphocyte % 5.4 % (19-41); Mean Corp Hgb Conc 31.7 g/dL (32-36); Mean Corpuscular Hgb 29.7 pg (27.0-32.0); Mean Corpuscular Volume 93.8 fL (80-94); Mean Platelet Vol. 9.5 fl (6.2-12.0); Monocyte# 0.87 X10^3/uL; Monocyte% 8.5 % (0-10); NRBC Flagged by Analyzer 0 % (0-5); Neutrophil # 8.69 X10^3/uL (2.7-7.7); Neutrophil % 84.7 % (47-70); POSITIVE DIFFERENTIAL YES; Platelet Count 348 K/mm3 (150-450); RBC Distribution Width CV 12.9 % (11.6-14.6); RBC Distribution Width SD 44.4 fl (35.1-43.9); Red Blood Count 4.64 M/mm3 (4.6-6.2); White Blood Count 10.3 K/mm3 (4.4-11.0)
[2023-06-07] MEDS: Morphine 4 MG/ML Syringe IV ×2 (16:14→17:07)
[2023-06-07 16:25] LABS: Anion Gap 3 (5-15); BUN 35 mg/dL (7-18); BUN/Creat Ratio 13.6 RATIO (10-20); Calcium,Total 8.9 mg/dL (8.5-10.1); Chloride 107 mmol/L (98-107); Creatinine, Serum 2.57 mg/dL (0.70-1.30); EST Glomerular Filtration Rate 26 mL/min (>60); Est Glom Filt Rate - Afr Amer 31 mL/min (>60); Estimated Creatinine Clearance 25.25 ml/min; Glucose 158 mg/dL (74-106); Potassium 4.2 mmol/L (3.5-5.1); Sodium Level 137 mmol/L (136-145)
[2023-06-07 16:38] LABS: Bacteria 0 SEEN /hpf (None Seen); Mucous, Urine 0 SEEN /hpf (<or=2+); White Blood Cells 0 SEEN /hpf (0-5)
[2023-06-07 16:44] LABS: Color, Urine Yellow (Yellow); Glucose, Dipstick Normal (Normal); Ketone-Dipstick Negative (Negative); Leukocyte Esterase-Dipstick Negative /ul (Negative); Nitrite-Dipstick Negative (Negative); Occult Blood-Urine 150 /ul (Negative); Protein-Dipstick 30 mg/dl (Negative); Urine Bilirubin Dipstick Negative (Negative); Urine Clarity Sl. Cloudy (Clear); Urine Urobilinogen Normal (Normal)
[2023-06-07 16:55] LABS: Differential Comment SCANNED
[2023-06-07 16:56] LABS: Differential Indicated SCAN CRITERIA MET
[2023-06-07 17:00] LABS: Amorphous Sediment 1+ URATE; Fine Granular Cast- Urine 0-5 SEEN /lpf (0-5); Red Blood Cells-Urine 5-10 SEEN /hpf (0-5); Squamous Epithelial Cells - UA 0-5 SEEN /hpf (0-5)
[2023-06-07] MEDS: oxyCODONE 5 MG Tablet PO (19:00)
[2023-06-07] MEDS: Morphine 2 MG/ML Syringe IV (19:01)
[2023-06-07 19:07] VITALS: BP 140/86; PULSE 92; RESP 14; O2SAT 100
== END 2023-06-07 19:08 | disposition home or self-care (01) ==
PROVIDERS: Emergency Provider Emergency Medicine; PCP Family Medicine; Visit Provider Emergency Medicine
DX: N23 Unspecified renal colic (principal); N13.2 Hydronephrosis with renal and ureteral calculous obstruction; N18.9 Chronic kidney disease, unspecified; I25.10 Atherosclerotic heart disease of native coronary artery without angina pectoris; I25.2 Old myocardial infarction; G47.33 Obstructive sleep apnea (adult) (pediatric); Z87.891 Personal history of nicotine dependence; Z95.5 Presence of coronary angioplasty implant and graft
CPT/HCPCS: 74176; 80048; 81001; 85025; 96374; 96375; 96376; 99284; A4216; J2405

== ENCOUNTER 2023-06-12 07:21 | Inpatient (IN) | payer MEDICARE, OTHER, SELFPAY ==
[2023-06-12 07:22] VITALS: BP 140/89; PULSE 115; RESP 16; TEMP 36.5; O2SAT 97; BMI 25.8
--- NOTE | 2023-06-12 07:40 | CT_ITS ---
STUDY: CT CHEST, ABDOMEN T PELVIS WITHOUT CONTRAST REASON FOR EXAM: Male, 77 years old. Right flank pain. RADIATION DOSAGE (If Supplied By Facility): CTDIvol = ( 19.79 ) mGy, DLP = ( 1754.63 ) mGycm TECHNIQUE: Transaxial imaging was performed without the administration of intravenous contrast material. Individualized dose optimization techniques were used for this CT. COMPARISON: Comparison is made with prior CT scan abdomen and pelvis dated June 07, 2023. FINDINGS: CHEST Small bilateral pleural effusions left greater than right with bibasilar atelectasis. There is no demonstrated pleural abnormality. Moderate-sized pericardial effusion. There are calcifications of the coronary arteries. There are multiple small lymph nodes within the mediastinum, which are normal in size and morphology most compatible with reactive lymph hyperplasia. Normal hilar regions. Normal unenhanced pulmonary arteries. There is atherosclerotic calcification of the aortic arch with tortuosity and elongation of the aortic arch and descending thoracic aorta. There are multi-level degenerative changes of the thoracic spine. Increased kyphosis. There is no demonstrated abnormality of the visualized upper abdomen. ABDOMEN Small bilateral pleural effusions left greater than right with bibasilar atelectasis. Moderate size pericardial effusion. This has progressed as compared to prior study. Coronary artery calcification. Normal liver. Normal gallbladder and extrahepatic biliary system. Normal spleen. Normal pancreas. Normal bilateral adrenal glands. There is a nonobstructive 2.9 mm calculus in the midpole calyx of the right kidney. Is also evidence of a tiny nonobstructive right intrarenal calculi in the lower pole calyx of the right kidney. Once again, there is an 8.2 mm triangular shaped calculus in the proximal portion of the right ureter with mild right hydronephrosis and proximal right hydroureter. This is unchanged. Normal left kidney. Normal visualized stomach. Normal small intestine. There are multiple colonic diverticula consistent with diverticulosis. The appendix is visualized and appears normal. Normal abdominal aorta. Normal inferior vena cava. Normal retroperitoneum. Normal abdominal wall. There are grade 1 anterior listhesis of L5 on S1 with spondylolysis of the pars interarticularis of the L5 vertebrae. Degenerative changes of the visualized lumbar spine. PELVIS Normal urinary bladder. Diffuse enlargement of the prostate. Metallic radiation seeds are seen within the prostate. The prostate measures 5.5 cm x 6.8 cm. This causes indentation at the bladder base. There is no pelvic fluid. There is no pelvic lymphadenopathy or mass lesion. There is diffuse atherosclerotic calcification of the pelvic arteries. CT/CT Chest, Abd, Pelvis WO Cont IMPRESSION: Moderate-sized pericardial effusion which has progressed as compared to prior study. Bilateral pleural effusions left greater than right with bibasilar atelectasis. 8.2 mm calculus in the proximal portion of the right ureter with mild right hydronephrosis and proximal right hydroureter. Prostatic enlargement with indentation at the bladder base. The remainder of the examination is unchanged. Electronically Signed: Hugh Rivera MD at 8:47 EDT ,
--- NOTE | 2023-06-12 07:42 | EX.ED.DYSGE1 ---
HPI History of Present Illness Chief Complaint: Other, Pain/Inj Informant: patient Narrative Narrative: Patient presents secondary to continued pain. Patient was seen in the emergency room in early May secondary to pain across his upper shoulders and wrapping around into his chest. He states he had that intermittently for quite some time and continues to complain of the symptoms. Patient was also seen last week secondary to right flank pain and was found to have a 6 mm proximal right ureter stone. He states he still has pain to this area and is unsure if he has passed the stone. He has had a couple episodes of chills and some nausea. No vomiting. No fever. He has been taking oxycodone intermittently. He states that this does not make his pain subside. [facility] Medical History DEENA (acute kidney injury) Arthritis Atherosclerosis of [place] coronary artery of [place] heart without angina pectoris BPH (benign prostatic hyperplasia) Calculus of proximal right ureter Chronic kidney disease (CKD) Dilated aortic root Essential (primary) hypertension History of non-ST elevation myocardial infarction (NSTEMI) (12/2015) Hyperlipidemia Hypothyroidism Mass of anus Obstructive sleep apnea Plantar fasciitis Tubular adenoma of colon (09/26/20) Type 2 diabetes mellitus without complications Home Medications aspirin 81 mg tablet,delayed release (Adult Aspirin Regimen) 81 mg PO QDAY #90 tabs 05/26/21 [Rx Last Taken Unknown] hydroxychloroquine 200 mg tablet 200 mg PO DAILY 05/26/21 [History Last Taken Unknown] metoprolol succinate 25 mg tablet,extended release 24 hr See Rx Instructions .Route .COMPLEX #45 tabs 07/13/22 [Rx Last Taken Unknown] cholecalciferol (vitamin D3) 50 mcg (2,000 unit) capsule 4,000 unit PO DAILY SUPPLEMENT 08/15/22 [History Last Taken Unknown] mecobalamin (vitamin B12) 1,000 mcg chewable tablet 1,000 mcg PO DAILY 08/15/22 [History Last Taken Unknown] hydrocodone-acetaminophen 5-325mg 5mg-325mg 1 tab PO Q6H PRN PRN Pain 3 days #10 TABLETS 05/25/23 [Rx Last Taken Unknown] oxycodone-acetaminophen 5 mg-325 mg tablet 1 tab PO Q6H PRN PRN pain 5 days #20 TABLETS 06/07/23 [Rx Last Taken Unknown] Allergy/AdvReac Type Severity Reaction Status Date / Time rosuvastatin [From Crestor] AdvReac Severe Myalgias Verified 06/12/23 07:24 and joint pain Family History Mother CAD (coronary artery disease) Hx of CABG Father CAD (coronary artery disease) Hx of CABG Brother CAD (coronary artery disease) Hx of CABG Myocardial infarction Diabetes Surgical History History of colonoscopy (2007) History of colonoscopy (09/26/20) History of coronary artery stent placement (12/25/15) History of esophagogastroduodenoscopy (EGD) (2005) History of hemorrhoidectomy History of left heart catheterization (12/2015) History of nasal septoplasty History of ureter stent (12/2019) Social History Smoking Status: Former smoker alcohol intake: current alcohol intake frequency: a few times a week Alcohol type: beer substance use type: does not use caffeine: Yes Type: coffee what type of physical activity do you participate in: walking frequency: daily duration: 30-45 minutes/day seatbelt use: always do you feel safe at home: Yes ROS ROS ED Constitutional Constitutional ED: Reports chills; Denies fever(s) Eyes Eyes: Denies change in vision or discharge from eye(s) ENT ENT ED: Denies discharge from eye(s), rhinorrhea or sore throat Cardiovascular Cardiovascular: Reports chest pain; Denies palpitations Respiratory/Chest Respiratory/Chest: Denies cough or dyspnea Gastrointestinal Gastrointestinal: Reports abdominal pain and nausea; Denies diarrhea or vomiting Genitourinary Genitourinary ED: Denies difficulty urinating, dysuria or hematuria Musculoskeletal Musculoskeletal: Reports back pain; Denies extremity pain Integumentary Denies Abrasions or rash Neurologic Neurologic: Denies headache(s) or weakness Psychiatric Psychiatric: Denies anxiety or depression Allergic/Immunologic Allergic/Immunologic ED: Denies lip swelling or urticaria EXAM Physical Exam Const Vital Signs: 06/12/23 07:22 06/12/23 07:47 06/12/23 09:45 Temperature 97.7 F L Temperature Source Temporal Pulse Rate 115 H 99 Respiratory Rate 16 17 Respiratory Pattern Normal Blood Pressure 140/89 H Blood Pressure Mean 106 Pulse Ox 97 97 Oxygen Delivery Method Room Air Room Air Positive well nourished and well developed General Appearance ED: well developed HEENT Reports normocephalic and head/scalp atraumatic Eyes PERRL and EOMs intact bilaterally Neck supple Chest Wall inspection of chest normal and palpation of chest normal Resp normal respiratory effort and clear to auscultation bilaterally Cardio regular rate and regular rhythm GI normal to inspection, nondistended, normoactive bowel sounds Palpation: soft Extremity normal to inspection Neuro oriented x3 and no sensory deficits noted Sensorium / Orientation: alert Motor Exam: strength 5/5 throughout Psych mental status grossly normal Skin no rashes or lesions noted MDM MDM MDM Narrative Medical decision making narrative: Patient placed on teletypesetter monitor. Patient given morphine, Zofran, IV fluids. EKG obtained to evaluate for cardiac arrhythmia/ischemia. Labwork obtained to evaluate for leukocytosis, anemia, and electrolyte derangement. Urinalysis obtained to evaluate for infection/hematuria. CT scan of the chest obtained as patient does have a history of dilated aortic root. Due to his chronic renal failure IV contrast is not ordered. Repeat CT flank also obtained given the patient's ongoing pain and previous proximal ureteral stone. History & Record Review Discussion w/independent historian: Patient Additional record(s) reviewed:: Prior ED visit and Prior labs Lab Data Attestation: I reviewed the patient's lab results. Labs: Laboratory Results - last 24 hr 06/12/23 08:00 WBC 10.4 RBC 4.24 L Hgb 12.6 L Hct 38.9 L MCV 91.7 MCH 29.7 MCHC 32.4 RDW Std Deviation 42.0 RDW Coeff of [place]ilson 12.7 Plt Count 303 MPV 9.7 Immature Gran % (Auto) 0.700 Neut % (Auto) 86.9 H Lymph % (Auto) 3.5 L Iron % (Auto) 8.4 Eos % (Auto) 0.2 Baso % (Auto) 0.3 Absolute Neuts (auto) 9.1 H Absolute Lymphs (auto) 0.36 L Nucleated RBC % 0 Differential Comment SCANNED Sodium 135 L Potassium 4.0 Chloride 105 Carbon Dioxide 21.0 Anion Gap 9 BUN 46 H Creatinine 3.79 H Estim Creat Clear Calc 17.12 Est GFR (MDRD) Af Amer 20 L Est GFR (MDRD) Non-Af 17 L BUN/Creatinine Ratio 12.1 Glucose 119 H Calcium 8.6 Total Bilirubin 0.60 Direct Bilirubin 0.30 AST 22 ALT 41 Alkaline Phosphatase 153 H Troponin I High Sens 11 Total Protein 7.1 Albumin 2.6 L Globulin 4.5 H Urine Color Yellow Urine Clarity Clear Urine pH 6.0 Ur Specific [place] 1.020 Urine Protein 30 H Urine Glucose (UA) Normal Urine Ketones 15 H Urine Occult Blood 150 H Urine Nitrite Negative Urine Bilirubin Negative Urine Urobilinogen Normal Ur Leukocyte Esterase Negative Urine RBC 0-5 SEEN Urine WBC 0-5 SEEN Ur Squamous Epith Cells 0 SEEN Urine Bacteria Not Reportable Fine Granular Casts 5-10 SEEN Coarse Granular Casts PLANNING COORDINATOR Urine Mucus 0 SEEN Radiography Diagnostic Testing: Clinical Impression(s) from Imaging Studies Chest/Abdomen/Pelvis CT 06/12/23 07:40 IMPRESSION: Moderate-sized pericardial effusion which has progressed as compared to prior study. Bilateral pleural effusions left greater than right with bibasilar atelectasis. 8.2 mm calculus in the proximal portion of the right ureter with mild right hydronephrosis and proximal right hydroureter. Prostatic enlargement with indentation at the bladder base. The remainder of the examination is unchanged. Electronically Signed: Hugh Rivera MD at 8:47 EDT , EKG Initial EKG: Attestation: I personally reviewed and interpreted this EKG as follows: Interpretation: Sinus Tachycardia (Sinus tachycardia at 109. Nonspecific T wave flattening. No acute ischemia.) Treatment and Re-Evaluation :: CBC was normal white count at 10.4 with a hemoglobin of 12.6. Chemistry studies reveal a sodium of 135. Potassium is normal at 4. BUN is 46 and creatinine is 3.79. His baseline creatinine appears to be in the low twos. Troponin is normal at 11. Urinalysis reveals no evidence of acute infection. Small amount of blood noted along with [address] scan of the chest, abdomen, and pelvis obtained without contrast. Patient has a moderate size pericardial effusion. There are also bilateral pleural effusions left greater than right with bibasilar atelectasis. There is an 8.2 mm calculus in the proximal portion of the right ureter with mild right hydronephrosis. I spoke with Dr. Mora, on-call for urology. He does feel the patient will require admission and intervention given his worsening renal function and large size stone. Given the patient has a pericardial effusion and is having some pain across his shoulders and upper back, he did request medicine admit the patient for this work-up and he will see the patient regarding the kidney stone. I will speak with the hospitalist. Discharge Plan Triage Chief Complaint: Other, Pain/Inj ED Provider: Anju Alexis Dx/Rx/DC Orders Clinical Impression: DEENA (acute kidney injury), Pericardial effusion, Ureterolithiasis Prescriptions: No Action hydroxychloroquine 200 mg tablet 200 mg PO DAILY aspirin [Adult Aspirin Regimen] 81 mg tablet,delayed release (DR/EC) 81 mg PO QDAY Qty: 90 3RF mecobalamin (vitamin B12) 1,000 mcg tablet,chewable 1,000 mcg PO DAILY cholecalciferol (vitamin D3) 50 mcg (2,000 unit) capsule 4,000 unit PO DAILY hydrocodone-acetaminophen 5-325 mg tablet 1 tab PO Q6H PRN PRN (Reason: Pain) 3 Days Qty: 10 0RF oxycodone-acetaminophen [oxycodone-acetaminophen] 5-325 mg tablet 1 tab PO Q6H PRN PRN (Reason: pain) 5 Days Qty: 20 0RF metoprolol succinate 25 mg tablet extended release 24 hr See Rx Instructions .ROUTE .COMPLEX Qty: 45 3RF Dose Instruction: TAKE ONE-HALF (1/2) TABLET DAILY FOR BLOOD PRESSURE Rx Instructions: TAKE ONE-HALF (1/2) TABLET DAILY FOR BLOOD PRESSURE Primary Care Provider: Raj Chow Referrals: Raj Chow DO [Primary Care Provider] - Disposition Disposition: Acute Care Hospital [facility]
[2023-06-12] MEDS: 0.9% Normal Saline (1000mL) 1,000 ML 150 ML IV (07:52)
[2023-06-12] MEDS: Morphine 4 MG/ML Syringe IV (07:52)
[2023-06-12] MEDS: Ondansetron 4 MG/2 ML Vial IV (07:52)
[2023-06-12 08:06] LABS: Mucous, Urine 0 SEEN /hpf (<or=2+); Squamous Epithelial Cells - UA 0 SEEN /hpf (0-5)
[2023-06-12 08:08] LABS: Absolute Lymphocyte Count 0.36 X10^3/uL (0.83-4.51); Absolute Neutrophil Count 9.1 X10^3/uL (2.0-7.7); Basophil# 0.03 X10^3/uL; Basophil% 0.3 % (0-1); Eosinophil# 0.02 X10^3/uL; Eosinophils% 0.2 % (0-5); Hematocrit 38.9 % (40-54); Hemoglobin 12.6 g/dL (13.0-16.5); Lymphocyte # 0.36 X10^3/ul (0.83-4.51); Lymphocyte % 3.5 % (19-41); Mean Corp Hgb Conc 32.4 g/dL (32-36); Mean Corpuscular Hgb 29.7 pg (27.0-32.0); Mean Corpuscular Volume 91.7 fL (80-94); Mean Platelet Vol. 9.7 fl (6.2-12.0); Monocyte# 0.87 X10^3/uL; Monocyte% 8.4 % (0-10); NRBC Flagged by Analyzer 0 % (0-5); Neutrophil # 9.06 X10^3/uL (2.7-7.7); Neutrophil % 86.9 % (47-70); POSITIVE DIFFERENTIAL YES; Platelet Count 303 K/mm3 (150-450); RBC Distribution Width CV 12.7 % (11.6-14.6); Red Blood Count 4.24 M/mm3 (4.6-6.2); White Blood Count 10.4 K/mm3 (4.4-11.0)
[2023-06-12 08:09] LABS: Color, Urine Yellow (Yellow); Differential Indicated SCAN CRITERIA MET; Glucose, Dipstick Normal (Normal); Ketone-Dipstick 15 mg/dl (Negative); Leukocyte Esterase-Dipstick Negative /ul (Negative); Nitrite-Dipstick Negative (Negative); Occult Blood-Urine 150 /ul (Negative); Protein-Dipstick 30 mg/dl (Negative); Urine Bilirubin Dipstick Negative (Negative); Urine Clarity Clear (Clear); Urine Urobilinogen Normal (Normal)
[2023-06-12 08:23] LABS: Red Blood Cells-Urine 0-5 SEEN /hpf (0-5); White Blood Cells 0-5 SEEN /hpf (0-5)
[2023-06-12 08:25] LABS: Fine Granular Cast- Urine 5-10 SEEN /lpf (0-5)
[2023-06-12 08:30] LABS: AST(SGOT) 22 U/L (15-37); Alanine Aminotransfer ALT/SGPT 41 U/L (16-61); Albumin, Serum 2.6 g/dL (3.2-5.0); Alkaline Phosphatase 153 U/L (45-117); Anion Gap 9 (5-15); BUN 46 mg/dL (7-18); BUN/Creat Ratio 12.1 RATIO (10-20); Calcium,Total 8.6 mg/dL (8.5-10.1); Chloride 105 mmol/L (98-107); Creatinine, Serum 3.79 mg/dL (0.70-1.30); EST Glomerular Filtration Rate 17 mL/min (>60); Est Glom Filt Rate - Afr Amer 20 mL/min (>60); Estimated Creatinine Clearance 17.12 ml/min; Globulin 4.5 g/dL (2.2-4.2); Glucose 119 mg/dL (74-106); Protein, Total 7.1 g/dL (6.4-8.2); Sodium Level 135 mmol/L (136-145); Troponin-I HS 11 pg/mL (3.0-78.0)
[2023-06-12 08:43] LABS: Differential Comment SCANNED
[2023-06-12 09:45] VITALS: PULSE 99; RESP 17; O2SAT 97
--- NOTE | 2023-06-12 11:00 | HP.PCM.HOS_ITS ---
[facility] - General General Date of Service: 06/12/23 Chief Complaint: abdominal pain [facility] Narrative KIMBERLEY YOUNG, is a 77 M who presents presents with flank and chest pain. Patient was seen on and was noted to have a right proximal ureteral stone with mild prominent hydronephrosis. Also noted to have a small pericardial effusion and pleural effusions. Patient went home at that time. Only returning with ongoing symptoms. CAT scan today showed moderate-sized pericardial effusion which has progressed compared to the previous study. Bilateral pleural effusions left greater than right. 8.2 mm calculus in the proximal portion of the right ureter. Patient is now agreeable to staying and Dr. Mora of urology was contacted and will see the patient in consultation with the medical service admitting. Patient previously has had kidney stones with stents placed. Patient denies any shortness of breath. Patient stated to have some chest pain with all this. But patient is breathing comfortably. [facility] Medical History DEENA (acute kidney injury) Arthritis Atherosclerosis of [place] coronary artery of [place] heart without angina pectoris BPH (benign prostatic hyperplasia) Calculus of proximal right ureter Chronic kidney disease (CKD) Dilated aortic root Essential (primary) hypertension History of non-ST elevation myocardial infarction (NSTEMI) (12/2015) Hyperlipidemia Hypothyroidism Mass of anus Obstructive sleep apnea Plantar fasciitis Tubular adenoma of colon (09/26/20) Type 2 diabetes mellitus without complications Home Medications hydroxychloroquine 200 mg tablet 200 mg PO QHS RHEUMATOID ARTHRITIS 05/26/21 [History Last Taken 06/11/23] cholecalciferol (vitamin D3) 50 mcg (2,000 unit) capsule 4,000 unit PO DAILY SUPPLEMENT 08/15/22 [History Last Taken 06/11/23] mecobalamin (vitamin B12) 1,000 mcg chewable tablet 1,000 mcg PO DAILY SUPPLEMENT 08/15/22 [History Last Taken 06/11/23] aspirin 81 mg tablet,delayed release (Adult Aspirin Regimen) 81 mg PO QHS [facility] 06/12/23 [History Last Taken 06/11/23] hydrocodone-acetaminophen 5-325mg 5mg-325mg 1 tab PO Q6H PRN Pain 06/12/23 [History Last Taken Unknown] metoprolol succinate 25 mg tablet,extended release 24 hr 25 mg PO DAILY BLOOD PRESSURE 06/12/23 [History Last Taken 06/12/23] oxycodone-acetaminophen 5 mg-325 mg tablet 1 tab PO Q6H PRN PAIN 06/12/23 [History Last Taken 06/11/23] Allergy/AdvReac Type Severity Reaction Status Date / Time rosuvastatin [From Crestor] AdvReac Severe Myalgias Verified 06/12/23 07:24 and joint pain Family History Mother CAD (coronary artery disease) Hx of CABG Father CAD (coronary artery disease) Hx of CABG Brother CAD (coronary artery disease) Hx of CABG Myocardial infarction Diabetes Surgical History History of colonoscopy (2007) History of colonoscopy (09/26/20) History of coronary artery stent placement (12/25/15) History of esophagogastroduodenoscopy (EGD) (2005) History of hemorrhoidectomy History of left heart catheterization (12/2015) History of nasal septoplasty History of ureter stent (12/2019) Social History Smoking Status: Former smoker alcohol intake: current alcohol intake frequency: a few times a week Alcohol type: beer substance use type: does not use caffeine: Yes Type: coffee what type of physical activity do you participate in: walking frequency: daily duration: 30-45 minutes/day seatbelt use: always do you feel safe at home: Yes ROS ROS Narrative All review of systems were negative except as mentioned above in the history of present illness and the other review of systems. Vital Signs Vital Signs Vital Signs: 06/12/23 07:22 06/12/23 07:47 06/12/23 09:45 Temperature 36.5 C L Temperature Source Temporal Pulse Rate 115 H 99 Respiratory Rate 16 17 Respiratory Pattern Normal Blood Pressure 140/89 H Blood Pressure Mean 106 Pulse Ox 97 97 Oxygen Delivery Method Room Air Room Air Weight Weight: 81.647 kg Body Mass Index (BMI) 25.8 Physical Exam Const alert and no apparent distress HEENT normocephalic and head/scalp atraumatic Resp normal respiratory effort, no retractions, no use of accessory muscles and clear to auscultation bilaterally Cardio regular rate, regular rhythm, S1 normal heart sound and S2 normal heart sound Cardio Narrative: No pulses paradoxus GI normal to inspection, nondistended, normoactive bowel sounds, soft to palpation, non-tender and non-distended Extremity normal to inspection and no clubbing, cyanosis or edema Neuro moves all extremities and no focal motor deficits Sensorium / Orientation: awake and alert Psych affect normal Results Lab / Micro Data Attestation: I reviewed the patient's lab results. 06/12/23 08:00 06/12/23 08:00 Labs: Laboratory Results - last 24 hr 06/12/23 08:00: WBC 10.4, RBC 4.24 L, Hgb 12.6 L, Hct 38.9 L, MCV 91.7, MCH 29.7, MCHC 32.4, RDW Std Deviation 42.0, RDW Coeff of [place] 12.7, Plt Count 303, MPV 9.7, Immature Gran % (Auto) 0.700, Neut % (Auto) 86.9 H, Lymph % (Auto) 3.5 L, [place] % (Auto) 8.4, Eos % (Auto) 0.2, Baso % (Auto) 0.3, Absolute Neuts (auto) 9.1 H, Absolute Lymphs (auto) 0.36 L, Nucleated RBC % 0, Differential Comment SCANNED, Sodium 135 L, Potassium 4.0, Chloride 105, Carbon Dioxide 21.0, Anion Gap 9, BUN 46 H, Creatinine 3.79 H, Estim Creat Clear Calc 17.12, Est GFR (MDRD) Af Amer 20 L, Est GFR (MDRD) Non-Af 17 L, BUN/Creatinine Ratio 12.1, Glucose 119 H, Calcium 8.6, Total Bilirubin 0.60, Direct Bilirubin 0.30, AST 22, ALT 41, Alkaline Phosphatase 153 H, Troponin I High Sens 11, Total Protein 7.1, Albumin 2.6 L, Globulin 4.5 H, Urine Color Yellow, Urine Clarity Clear, Urine pH 6.0, Ur Specific [place] 1.020, Urine Protein 30 H, Urine Glucose (UA) Normal, Urine Ketones 15 H, Urine Occult Blood 150 H, Urine Nitrite Negative, Urine Bilirubin Negative, Urine Urobilinogen Normal, Ur Leukocyte Esterase Negative, Urine RBC 0-5 SEEN, Urine WBC 0-5 SEEN, Ur Squamous Epith Cells 0 SEEN, Urine Bacteria Not Reportable, Fine Granular Casts 5-10 SEEN, Coarse Granular Casts SENIOR 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 Bilateral pleural effusions left greater than right with bibasilar atelectasis. 8.2 mm calculus in the proximal portion of the right ureter with mild right hydronephrosis and proximal right hydroureter. Prostatic enlargement with indentation at the bladder base. The remainder of the examination is unchanged. Electronically Signed: Hugh Rivera MD at 8:47 EDT , Assessment & Plan Assessment/Plan (1) Urolithiasis: QUALIFIERS: Urinary calculus location: ureter Qualified Code(s): N20.1 - Calculus of ureter PLAN: Right-sided Start tamsulosin Urology notified by the emergency room will see the patient in consultation. Patient medically cleared to proceed with surgery. No further optimization medically is required at this time. (2) DEENA (acute kidney injury): PLAN: Patient has chronic kidney disease but is acutely worse likely due to post obstruction. Patient received IV fluids but with his pericardial fusion pleural effusions, I will discontinue that. I anticipate improvement after the stone has been removed. (3) Pericardial effusion: PLAN: No clinical evidence of tamponade. Pulses paradoxus was not present. I verify that at bedside. Check an echocardiogram Concerned that this may be related with underlying heart failure but patient does have known rheumatoid arthritis which could also be another factor. (4) Pleural effusion: PLAN: Unclear type if this is transudative versus exudative. 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 Patient is relatively asymptomatic from that. May consider follow-up as outpatient. PLAN: Plan Chronic conditions * CAD: Aspirin to be held on account of anticipated cystoscopy and lithotripsy * Rheumatoid arthritis: Hold hydroxychloroquine for now VTE prophylaxis: With SCDs. CODE STATUS: Addressed with the patient. Patient was to be full code. Disposition: Discharge to be determined. Anticipate patient going home. Charges/Coding Visit Charges Inpatient E&M: 10726 Init Hosp L3
[2023-06-12 11:11] VITALS: BP 135/74; PULSE 105; RESP 21; TEMP 36.3; O2SAT 95
--- NOTE | 2023-06-12 11:17 | CON.PCM.UR_ITS ---
Assessment & Plan Assessment/Plan (1) Ureterolithiasis: PLAN: plan for Right ESWL and stent on Saturday. (2) Ureteral colic: HPI Consult Data Date of Consult: 06/12/23 HPI Narrative Reason for Consultation: Right proximal large ureteral calculi HPI Narrative: KIMBERLEY YOUNG, is a 77 M who presents to the hospital obstructing stone and in the proximal right ureter he also has a pleural effusion history of coronary artery disease and multiple medical problems including acute kidney injury. He is being admitted today for pain control and medical management. Plan to put him on the schedule Saturday for cystoscopy right stent placement and right ESWL. [facility] Medical History DEENA (acute kidney injury) Arthritis Atherosclerosis of [place] coronary artery of [place] heart without angina pectoris BPH (benign prostatic hyperplasia) Calculus of proximal right ureter Chronic kidney disease (CKD) Dilated aortic root Essential (primary) hypertension History of non-ST elevation myocardial infarction (NSTEMI) (12/2015) Hyperlipidemia Hypothyroidism Mass of anus Obstructive sleep apnea Plantar fasciitis Tubular adenoma of colon (09/26/20) Type 2 diabetes mellitus without complications Home Medications hydroxychloroquine 200 mg tablet 200 mg PO QHS RHEUMATOID ARTHRITIS 05/26/21 [History Last Taken 06/11/23] cholecalciferol (vitamin D3) 50 mcg (2,000 unit) capsule 4,000 unit PO DAILY SUPPLEMENT 08/15/22 [History Last Taken 06/11/23] mecobalamin (vitamin B12) 1,000 mcg chewable tablet 1,000 mcg PO DAILY SUPPLEMENT 08/15/22 [History Last Taken 06/11/23] aspirin 81 mg tablet,delayed release (Adult Aspirin Regimen) 81 mg PO QHS [facility] 06/12/23 [History Last Taken 06/11/23] hydrocodone-acetaminophen 5-325mg 5mg-325mg 1 tab PO Q6H PRN Pain 06/12/23 [History Last Taken Unknown] metoprolol succinate 25 mg tablet,extended release 24 hr 25 mg PO DAILY BLOOD PRESSURE 06/12/23 [History Last Taken 06/12/23] oxycodone-acetaminophen 5 mg-325 mg tablet 1 tab PO Q6H PRN PAIN 06/12/23 [History Last Taken 06/11/23] Allergy/AdvReac Type Severity Reaction Status Date / Time rosuvastatin [From Crestor] AdvReac Severe Myalgias Verified 06/12/23 07:24 and joint pain Family History Mother CAD (coronary artery disease) Hx of CABG Father CAD (coronary artery disease) Hx of CABG Brother CAD (coronary artery disease) Hx of CABG Myocardial infarction Diabetes Surgical History History of colonoscopy (2007) History of colonoscopy (09/26/20) History of coronary artery stent placement (12/25/15) History of esophagogastroduodenoscopy (EGD) (2005) History of hemorrhoidectomy History of left heart catheterization (12/2015) History of nasal septoplasty History of ureter stent (12/2019) Social History Smoking Status: Former smoker alcohol intake: current alcohol intake frequency: a few times a week Alcohol type: beer substance use type: does not use caffeine: Yes Type: coffee what type of physical activity do you participate in: walking frequency: daily duration: 30-45 minutes/day seatbelt use: always do you feel safe at home: Yes ROS Constitutional Constitutional: Denies chills, fever(s) or malaise Eyes Eyes: Denies blurry vision or change in vision ENT HEENT: Reports none Cardiovascular Cardiovascular: Denies chest pain or palpitations Respiratory/Chest Respiratory/Chest: Denies cough or shortness of breath with exertion Gastrointestinal Gastrointestinal: Denies abdominal pain, constipation or diarrhea Musculoskeletal Musculoskeletal: Denies back pain, joint stiffness or joint swelling Integumentary Integumentary: Denies dry skin, jaundice, lesions or rash Neurologic Neurologic: Denies confusion, syncope or weakness Psychiatric Psychiatric: Reports none; Denies anxiety or depression Endocrine Endocrinology: Denies excessive sweating, fatigue or flushing Hematologic/Lymphatic Hematologic/Lymphatic: Denies anemia, easy bleeding or easy bruising Physical Exam Const alert and oriented x3 General Appearance: cooperative HEENT normocephalic, head/scalp atraumatic, EAC's normal and TM's normal bilaterally Eyes PERRL and EOMs intact bilaterally Pupil: sluggish Neck no lymphadenopathy, supple and no JVD General: trachea midline Lymph Lymphatic: no lymphadenopathy noted, lymphedema and lymphadenopathy Resp normal respiratory effort, normal air movement and clear to auscultation bilaterally Cardio regular rate, regular rhythm and peripheral pulses 2+ throughout GI soft to palpation, non-tender and non-distended Extremity normal capillary refill and no clubbing, cyanosis or edema General Extremity: no tenderness to palpation of joints or extremities Skin no rashes or lesions noted General Skin Exam: turgor normal Lesions: no lesions Rashes: no rashes Neuro CN's II-XII intact bilaterally Speech: speech normal Motor Exam: strength 5/5 throughout; Negative for general weakness Psych thought process normal, cooperative and affect normal Appearance: appropriate Medical Records Data Attestation: I reviewed the patient's medical records Lab / Micro Data 06/12/23 08:00 06/12/23 08:00 Labs: Laboratory Results - last 24 hr 06/12/23 08:00: WBC 10.4, RBC 4.24 L, Hgb 12.6 L, Hct 38.9 L, MCV 91.7, MCH 29.7, MCHC 32.4, RDW Std Deviation 42.0, RDW Coeff of [place] 12.7, Plt Count 303, MPV 9.7, Immature Gran % (Auto) 0.700, Neut % (Auto) 86.9 H, Lymph % (Auto) 3.5 L, [place] % (Auto) 8.4, Eos % (Auto) 0.2, Baso % (Auto) 0.3, Absolute Neuts (auto) 9.1 H, Absolute Lymphs (auto) 0.36 L, Nucleated RBC % 0, Differential Comment SCANNED, Sodium 135 L, Potassium 4.0, Chloride 105, Carbon Dioxide 21.0, Anion Gap 9, BUN 46 H, Creatinine 3.79 H, Estim Creat Clear Calc 17.12, Est GFR (MDRD) Af Amer 20 L, Est GFR (MDRD) Non-Af 17 L, BUN/Creatinine Ratio 12.1, Glucose 119 H, Calcium 8.6, Total Bilirubin 0.60, Direct Bilirubin 0.30, AST 22, ALT 41, Alkaline Phosphatase 153 H, Troponin I High Sens 11, Total Protein 7.1, Albumin 2.6 L, Globulin 4.5 H, Urine Color Yellow, Urine Clarity Clear, Urine pH 6.0, Ur Specific [place] 1.020, Urine Protein 30 H, Urine Glucose (UA) Normal, Urine Ketones 15 H, Urine Occult Blood 150 H, Urine Nitrite Negative, Urine Bilirubin Negative, Urine Urobilinogen Normal, Ur Leukocyte Esterase Negative, Urine RBC 0-5 SEEN, Urine WBC 0-5 SEEN, Ur Squamous Epith Cells 0 SEEN, Urine Bacteria Not Reportable, Fine Granular Casts 5-10 SEEN, Coarse Granular Casts TECHNOLOGY PROGRAM MANAGER, Urine Mucus 0 SEEN Radiology Impression Chest/Abdomen/Pelvis CT 06/12/23 07:40 IMPRESSION: Moderate-sized pericardial effusion which has progressed as compared to prior study. Bilateral pleural effusions left greater than right with bibasilar atelectasis. 8.2 mm calculus in the proximal portion of the right ureter with mild right hydronephrosis and proximal right hydroureter. Prostatic enlargement with indentation at the bladder base. The remainder of the examination is unchanged. Electronically Signed: Hugh Rivera MD at 8:47 EDT ,
[2023-06-12 12:00] VITALS: BP 137/97; PULSE 107; RESP 18; TEMP 36.6; O2SAT 97
[2023-06-12 12:01] VITALS: BMI 26.2
--- NOTE | 2023-06-12 12:02 | ECHOCS_ITS ---
Reason For Study: Pericardial Effusion Procedure This was a 2D Doppler, Color Flow transthoracic echocardiogram. The study was technically difficult. Contrast injection was performed. Exam performed portable in patient room. Left Ventricle Normal size and thickness. The left ventricular ejection fraction is 55 %. Posterior hypokinesis. Right Ventricle Normal right ventricle. Atria The left and right atria are normal. Mitral Valve Trivial mitral valve insufficiency. Tricuspid Valve Trivial tricuspid valve insufficiency. Unable to estimate RV systolic pressure due to insufficient tricuspid regurgitant envelope. Aortic Valve Trisinus/trileaflet aortic valve. Pulmonic Valve The pulmonic valve is not well visualized. Great Vessels Normal sized aortic root. Pericardium/Pleural Small anterior pericardial effusion with possible organized clot. Medication Diluted definity 2ml given slow IV push to enhance endocardial definition. MMode/2D Measurements & Calculations LVIDd: 3.5 cm IVSd: 1.1 cm Ao root diam: 3.6 cm LVIDs: 2.7 cm LVPWd: 1.0 cm LA dimension: 3.1 cm RVDd: 3.9 cm FS: 22.5 % LAV(MOD-bp): 67.0 ml LVAd ap4: 28.0 cm2 SV(MOD-sp4): 42.8 ml LAV(MOD-bp) Indexed: 33.4 ml/m2 LVLd ap4: 8.6 cm LAV(MOD-sp2): 69.2 ml EDV(MOD-sp4): 73.7 ml LAV(MOD-sp4): 54.1 ml EDV(sp4-el): 77.0 ml LVAs ap4: 15.6 cm2 LVLs ap4: 6.6 cm ESV(MOD-sp4): 30.9 ml ESV(sp4-el): 31.2 ml EF(MOD-sp4): 58.1 % EF(sp4-el): 59.5 % SV(sp4-el): 45.8 ml LA A4 area: 20.3 cm2 RA A4 area: 18.7 cm2 TAPSE: 1.3 cm Time Measurements MV dec time: 0.15 sec Doppler Measurements & Calculations MV E max john: 70.7 cm/sec Lat Peak E' John: 11.4 cm/sec Med Peak E' John: 9.4 cm/sec MV A max john: 84.1 cm/sec E/E' lat: 6.2 E/E' med: 7.5 MV E/A: 0.84 MV V2 max: 91.8 cm/sec MV P1/2t max john: 79.6 cm/sec Ao V2 max: 145.8 cm/sec MV max P.4 mmHg MV P1/2t: 54.4 msec Ao max P.5 mmHg MV V2 mean: 55.0 cm/sec Ao V2 mean: 98.4 cm/sec MV mean P.4 mmHg MV dec slope: 428.7 cm/sec2 Ao mean P.5 mmHg MV V2 VTI: 15.8 cm MVA(P1/2t): 4.0 cm2 Ao V2 VTI: 24.4 cm LV V1 max: 83.9 cm/sec PA V2 max: 85.1 cm/sec LV V1 max P.8 mmHg ECHO/Echo Complete W/ Contrast Interpretation Summary The left ventricular ejection fraction is 55 %. Posterior hypokinesis Moderate anterior pericardial effusion. Partly organized. No tamponade. Recommend cardiac MRI for further evaluation. Ordering Physician: Karlos Hernandez Performed By: Konstantin Perez RCS
[2023-06-12 17:00] VITALS: BP 124/69; PULSE 114; RESP 18; TEMP 37; O2SAT 94
[2023-06-12] MEDS: Tamsulosin HCl 0.4 MG Capsule PO (17:45)
[2023-06-12 20:07] VITALS: BP 126/80; PULSE 105; RESP 18; TEMP 36.9; O2SAT 95
[2023-06-12] MEDS: oxyCODONE 5 MG Tablet PO (20:08)
[2023-06-12] MEDS: Hydroxychloroquine 200 MG Tablet PO (20:08)
[2023-06-12] MEDS: cycloBENZAPRine HCl 5 MG TABLET PO (23:37)
[2023-06-13 03:05] VITALS: BP 121/85; PULSE 99; RESP 16; TEMP 36.4; O2SAT 93
[2023-06-13] MEDS: oxyCODONE 5 MG Tablet PO ×3 (03:08→22:05)
[2023-06-13 06:12] LABS: Absolute Lymphocyte Count 0.54 X10^3/uL (0.83-4.51); Absolute Neutrophil Count 5.3 X10^3/uL (2.0-7.7); Basophil# 0.04 X10^3/uL; Basophil% 0.6 % (0-1); Differential Indicated SCAN CRITERIA MET; Eosinophil# 0.07 X10^3/uL; Hematocrit 34.2 % (40-54); Lymphocyte # 0.54 X10^3/ul (0.83-4.51); Mean Corp Hgb Conc 32.2 g/dL (32-36); Mean Corpuscular Hgb 29.4 pg (27.0-32.0); Mean Corpuscular Volume 91.4 fL (80-94); Mean Platelet Vol. 9.7 fl (6.2-12.0); Monocyte# 0.74 X10^3/uL; NRBC Flagged by Analyzer 0 % (0-5); Neutrophil # 5.29 X10^3/uL (2.7-7.7); Neutrophil % 78.4 % (47-70); POSITIVE DIFFERENTIAL YES; Platelet Count 257 K/mm3 (150-450); RBC Distribution Width CV 12.8 % (11.6-14.6); RBC Distribution Width SD 42.6 fl (35.1-43.9); Red Blood Count 3.74 M/mm3 (4.6-6.2); White Blood Count 6.8 K/mm3 (4.4-11.0)
[2023-06-13 06:34] LABS: Anion Gap 8 (5-15); BUN 47 mg/dL (7-18); BUN/Creat Ratio 12.9 RATIO (10-20); Calcium,Total 7.9 mg/dL (8.5-10.1); Chloride 107 mmol/L (98-107); Creatinine, Serum 3.64 mg/dL (0.70-1.30); EST Glomerular Filtration Rate 17 mL/min (>60); Est Glom Filt Rate - Afr Amer 21 mL/min (>60); Estimated Creatinine Clearance 17.83 ml/min; Glucose 97 mg/dL (74-106); Potassium 4.1 mmol/L (3.5-5.1); Sodium Level 137 mmol/L (136-145)
[2023-06-13 06:50] LABS: Differential Comment SCANNED
--- NOTE | 2023-06-13 08:31 | PCM.PN.HOSP ---
Reason for Visit Reason for Visit: Diagnoses Other pericardial effusion (noninflammatory) (06/12/23) Pleural effusion, not elsewhere classified (06/12/23) Acute kidney failure, unspecified (06/12/23) Calculus of ureter (06/12/23) Unspecified renal colic (06/12/23) Subjective Subjective No events. Objective Data Objective Data Vital Signs: Vital Signs Temp Pulse Resp BP Pulse Ox O2 Del Method 36.4 C L 99 16 121/85 H 93 Room Air 06/13/23 03:05 06/13/23 03:05 06/13/23 03:05 06/13/23 03:05 06/13/23 03:05 06/13/23 03:07 Oxygen Delivery Method Room Air Weight: 82.781 kg Body Mass Index (BMI) 26.2 Intake & Output: Intake and Output for Last 24 Hours 06/11/23 06/12/23 06/13/23 23:59 23:59 23:59 Intake Total 1000 / 1000 Balance 1000 / 1000 Lab / Micro Data 06/13/23 05:29 06/13/23 05:29 Labs: Laboratory Results - last 24 hr 06/12/23 08:00: Differential Comment SCANNED 06/13/23 05:29: WBC 6.8, RBC 3.74 L, Hgb 11.0 L, Hct 34.2 L, MCV 91.4, MCH 29.4, MCHC 32.2, RDW Std Deviation 42.6, RDW Coeff of [place] 12.8, Plt Count 257, MPV 9.7, Immature Gran % (Auto) 1.000 H, Neut % (Auto) 78.4 H, Lymph % (Auto) 8.0 L, [place] % (Auto) 11.0 H, Eos % (Auto) 1.0, Baso % (Auto) 0.6, Absolute Neuts (auto) 5.3, Absolute Lymphs (auto) 0.54 L, Nucleated RBC % 0, Differential Comment SCANNED, Sodium 137, Potassium 4.1, Chloride 107, Carbon Dioxide 22.0, Anion Gap 8, BUN 47 H, Creatinine 3.64 H, Estim Creat Clear Calc 17.83, Est GFR (MDRD) Af Amer 21 L, Est GFR (MDRD) Non-Af 17 L, BUN/Creatinine Ratio 12.9, Glucose 97, Calcium 7.9 L Radiography Diagnostic Testing: Radiology Impression Chest/Abdomen/Pelvis CT 06/12/23 07:40 IMPRESSION: Moderate-sized pericardial effusion which has progressed as compared to prior study. Bilateral pleural effusions left greater than right with bibasilar atelectasis. 8.2 mm calculus in the proximal portion of the right ureter with mild right hydronephrosis and proximal right hydroureter. Prostatic enlargement with indentation at the bladder base. The remainder of the examination is unchanged. Electronically Signed: Hugh Rivera MD at 8:47 EDT , Physical Exam Const alert and no apparent distress Constitutional Narrative: up in chair eating breakfast. HEENT head/scalp atraumatic Neuro Sensorium / Orientation: awake and alert Assessment & Plan Assessment/Plan (1) Urolithiasis: QUALIFIERS: Urinary calculus location: ureter Qualified Code(s): N20.1 - Calculus of ureter PLAN: Right-sided Start tamsulosin Urology notified by the emergency room will see the patient in consultation. Patient medically cleared to proceed with surgery. No further optimization medically is required at this time. (2) DEENA (acute kidney injury): PLAN: Slightly improved today Patient has chronic kidney disease but is acutely worse likely due to post obstruction. Patient received IV fluids but with his pericardial fusion pleural effusions, I will discontinue that. I anticipate improvement after the stone has been removed. (3) Pericardial effusion: PLAN: No clinical evidence of tamponade. Pulses paradoxus was not present. I verify that at bedside. Concerned that this may be related with underlying heart failure but patient does have known rheumatoid arthritis which could also be another factor. Echo showed an EF 55% with posterior hypokinesis. oderate anterior pericardial effusion, partially organized. No tamponade. DW Dr. Jaquez, he recommended outpt cardiac MRI. WIll have patient follow up with cardiology as outpt. (4) Pleural effusion: PLAN: Unclear type if this is transudative versus exudative. 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 Patient is relatively asymptomatic from that. May consider follow-up as outpatient. PLAN: Plan Chronic conditions CAD: Aspirin to be held on account of anticipated cystoscopy and lithotripsy Rheumatoid arthritis: Hold hydroxychloroquine for now VTE prophylaxis: With SCDs. CODE STATUS: Addressed with the patient. Patient was to be full code. Disposition: Discharge to be determined. Anticipate patient going home. Greater than 35 minutes of which greater than 50% of the time was discussed with the patient at bedside about the pericardial effusion, pleural effusion as well as ureteral stone. Explained indication for echocardiogram, which was not done at that time, and further potential follow-up recommendations. Charges/Coding Visit Charges Inpatient E&M: 03301 Subs Hosp L2
[2023-06-13 09:05] VITALS: BP 120/70; PULSE 116; RESP 16; TEMP 36.9; O2SAT 95
[2023-06-13 10:30] VITALS: BP 124/76; PULSE 118
[2023-06-13] MEDS: Metoprolol(XL)Succ 25 MG Tablet PO (10:30)
[2023-06-13] MEDS: Flu Vacc QS2023-24(65YR UP)/PF 240 MCG/0.7 ML Syringe IM (10:32)
[2023-06-13] MEDS: 0.9% Saline Lock 10 ML Syringe IV (10:32)
[2023-06-13] MEDS: Acetaminophen 325 MG Tablet 650 MG PO (10:49)
--- NOTE | 2023-06-13 15:00 | CASEMGMT ---
RN?CM?DATA ARCHITECT MANAGER?CM?to room to meet with patient for initial transition planning/care coordination?assessment.?RN?CM?introduced self and role at [facility].? Pt voices understanding and consents to?assessment?at this time.? Pt resting in bed in no distress at this time.? Pt is A/O at this time and answers all questions appropriately.?? Care providers, pharmacy, and demographics verified/updated at this time. PCP: Dr Chow Specialists: MIRIAM/cardiology, Dr Barber-arthritis, Dr Mora-urology, Dr Naik-dermatology Preferred Pharmacy: [facility] Retail Insurance: Carena, NCLC, [employer] benefits Prescription Benefit:?Yes Living Will/HPOA:?Has done both LW and HCPOA, who is his . LNOK: Mariah Living Arrangements: Lives w/his in 2-story home w/3 steps to enter. Denies difficulty w/stairs. Indep w/ADL's and manages his own medications. and pt share home mgnt tasks. Transportation:?Pt states drives self and states no transportation concerns at this time.? also drives. DME: Pt has a CPAP only. Pt states no need for further DME at this time.? HHC/SNF: No hx of either. Has done OP therapy @ [facility] and has been to [facility] Cardiac OP rehab. Pt denies need for HHC or denies need for other resources. He states when his was in the hospital they were provided w/resources for AL, and private duty agencies and he states he still has all of this info. He states his is not ready for them to move to a AL, but it has been considered. He states he has looked over some of the information and is still considering getting some help in the home for home mgnt. He denies need for HHC for SN or therapy and denies wanting any further resources. Pt wishes to return home and states has no concerns with going home at time of discharge.? ?CM?to follow for any discharge planning/needs.? Pt voices no further concerns/needs at this time.? Advised pt to ask for?CM?if any further questions/concerns/needs arise.? Voices understanding. PLAN:??Home Marty BSN?RN?CM
[2023-06-13 15:05] VITALS: BP 121/75; PULSE 106; RESP 18; TEMP 36.8; O2SAT 95
[2023-06-13] MEDS: Tamsulosin HCl 0.4 MG Capsule PO (17:26)
[2023-06-13] MEDS: Senna/Docusate Sodium 1 Tablet 2 TABLET PO (17:26)
[2023-06-13 21:45] VITALS: BP 135/77; PULSE 111; RESP 18; TEMP 36.9; O2SAT 93
[2023-06-13] MEDS: Hydroxychloroquine 200 MG Tablet PO (22:05)
[2023-06-14] VITALS (11 sets, daily range): BP systolic 114–139; BP diastolic 76–89; PULSE 91–111; RESP 16–20; TEMP 36.4–36.9; O2SAT 93–97; BMI 26.2
[2023-06-14 05:14] LABS: Absolute Lymphocyte Count 0.56 X10^3/uL (0.83-4.51); Absolute Neutrophil Count 5.3 X10^3/uL (2.0-7.7); Basophil# 0.05 X10^3/uL; Basophil% 0.7 % (0-1); Eosinophil# 0.12 X10^3/uL; Eosinophils% 1.8 % (0-5); Hematocrit 36.6 % (40-54); Hemoglobin 11.7 g/dL (13.0-16.5); Lymphocyte # 0.56 X10^3/ul (0.83-4.51); Lymphocyte % 8.4 % (19-41); Mean Corpuscular Hgb 29.6 pg (27.0-32.0); Mean Corpuscular Volume 92.7 fL (80-94); Mean Platelet Vol. 9.8 fl (6.2-12.0); NRBC Flagged by Analyzer 0 % (0-5); Neutrophil # 5.28 X10^3/uL (2.7-7.7); Neutrophil % 79.1 % (47-70); POSITIVE DIFFERENTIAL YES; Platelet Count 241 K/mm3 (150-450); RBC Distribution Width CV 12.7 % (11.6-14.6); RBC Distribution Width SD 43.4 fl (35.1-43.9); Red Blood Count 3.95 M/mm3 (4.6-6.2); White Blood Count 6.7 K/mm3 (4.4-11.0)
[2023-06-14 05:22] LABS: Differential Indicated SCAN CRITERIA MET
[2023-06-14 05:49] LABS: Anion Gap 7 (5-15); BUN 48 mg/dL (7-18); BUN/Creat Ratio 12.8 RATIO (10-20); Calcium,Total 8.1 mg/dL (8.5-10.1); Chloride 107 mmol/L (98-107); Creatinine, Serum 3.76 mg/dL (0.70-1.30); EST Glomerular Filtration Rate 17 mL/min (>60); Est Glom Filt Rate - Afr Amer 20 mL/min (>60); Estimated Creatinine Clearance 17.26 ml/min; Glucose 105 mg/dL (74-106); Potassium 4.1 mmol/L (3.5-5.1); Sodium Level 136 mmol/L (136-145)
[2023-06-14 06:19] LABS: Differential Comment SCANNED
[2023-06-14 06:21] LABS: Thyroid Stim Hormone (TSH) 2.54 uIU/mL (0.358-3.74)
[2023-06-14] MEDS: Metoprolol(XL)Succ 25 MG Tablet PO (06:48)
--- NOTE | 2023-06-14 08:47 | PCM.PN.HOSP ---
Reason for Visit Reason for Visit: Diagnoses Other pericardial effusion (noninflammatory) (06/12/23) Pleural effusion, not elsewhere classified (06/12/23) Acute kidney failure, unspecified (06/12/23) Calculus of ureter (06/12/23) Unspecified renal colic (06/12/23) Subjective Subjective Feels well. No pain. Objective Data Objective Data Vital Signs: Vital Signs Temp Pulse Resp BP Pulse Ox O2 Del Method 36.8 C 105 H 16 133/81 H 95 Room Air 06/14/23 08:02 06/14/23 08:02 06/14/23 08:02 06/14/23 08:02 06/14/23 08:02 06/14/23 08:02 Oxygen Delivery Method Room Air Weight: 82.781 kg Body Mass Index (BMI) 26.2 Intake & Output: Intake and Output for Last 24 Hours 06/12/23 06/13/23 06/14/23 23:59 23:59 23:59 Intake Total 1000 / 1000 1640 / 1640 Balance 1000 / 1000 1640 / 1640 Lab / Micro Data 06/14/23 04:40 06/14/23 04:40 Labs: Laboratory Results - last 24 hr 06/14/23 04:40: WBC 6.7, RBC 3.95 L, Hgb 11.7 L, Hct 36.6 L, MCV 92.7, MCH 29.6, MCHC 32.0, RDW Std Deviation 43.4, RDW Coeff of Denilson 12.7, Plt Count 241, MPV 9.8, Immature Gran % (Auto) 1.000 H, Neut % (Auto) 79.1 H, Lymph % (Auto) 8.4 L, Dawes % (Auto) 9.0, Eos % (Auto) 1.8, Baso % (Auto) 0.7, Absolute Neuts (auto) 5.3, Absolute Lymphs (auto) 0.56 L, Nucleated RBC % 0, Differential Comment SCANNED, Sodium 136, Potassium 4.1, Chloride 107, Carbon Dioxide 22.0, Anion Gap 7, BUN 48 H, Creatinine 3.76 H, Estim Creat Clear Calc 17.26, Est GFR (MDRD) Af Amer 20 L, Est GFR (MDRD) Non-Af 17 L, BUN/Creatinine Ratio 12.8, Glucose 105, Calcium 8.1 L, TSH 2.54 Radiography Diagnostic Testing: Radiology Impression Echocardiogram 06/12/23 12:02 Interpretation Summary The left ventricular ejection fraction is 55 %. Posterior hypokinesis Moderate anterior pericardial effusion. Partly organized. No tamponade. Recommend cardiac MRI for further evaluation. Ordering Physician: Karlos Hernandez Performed By: Konstantin Perez RCS Physical Exam Const alert and no apparent distress Neuro Sensorium / Orientation: awake Psych affect normal Assessment & Plan Assessment/Plan (1) Urolithiasis: QUALIFIERS: Urinary calculus location: ureter Qualified Code(s): N20.1 - Calculus of ureter PLAN: Right-sided Start tamsulosin Urology notified by the emergency room will see the patient in consultation. Patient medically cleared to proceed with surgery. No further optimization medically is required at this time. For cystoscopy today (2) DEENA (acute kidney injury): PLAN: Slightly improved today Patient has chronic kidney disease but is acutely worse likely due to post obstruction. Patient received IV fluids but with his pericardial fusion pleural effusions, I will discontinue that. I anticipate improvement after the stone has been removed. (3) Pericardial effusion: PLAN: No clinical evidence of tamponade. Pulses paradoxus was not present. I verify that at bedside. Concerned that this may be related with underlying heart failure but patient does have known rheumatoid arthritis which could also be another factor. Echo showed an EF 55% with posterior hypokinesis. oderate anterior pericardial effusion, partially organized. No tamponade. DW Dr. Jaquez, he recommended outpt cardiac MRI. WIll have patient follow up with cardiology as outpt. (4) Pleural effusion: PLAN: Unclear type if this is transudative versus exudative. 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 Patient is relatively asymptomatic from that. Follow up with pulmonology. PLAN: Plan Chronic conditions CAD: Aspirin to be held on account of anticipated cystoscopy and lithotripsy Rheumatoid arthritis: Hold hydroxychloroquine for now VTE prophylaxis: With SCDs. CODE STATUS: Addressed with the patient. Patient was to be full code. Disposition: Discharge to be determined. Anticipate patient going home. Charges/Coding Visit Charges Inpatient E&M: 93413 [facility] Hosp L1
[2023-06-14] MEDS: Cefazolin 2 GM in 0.9% Normal Saline (100mL Bag) 100 ML IV (15:08)
--- NOTE | 2023-06-14 16:03 | OP.PCM_ITS ---
Report of Operation Date of Procedure: 06/14/23 Pre-Operative Diagnosis: Right ureteral calculi Post-Operative Diagnosis: The same Surgery/Procedure Performed:: Cystoscopy and right stent placement and right extracorporeal shockwave lithotripsy Description of Surgical Findings:: Patient presents to the hospital for treatment of a kidney stone with shockwave lithotripsy. In the preoperative area and x-ray was done to confirm the location of the stone. The x-ray was reviewed and the stone location was reviewed. In the preoperative setting I spoke with the patient regarding the treatment of the stone how the treatment would be conducted and the expectations after surgery. The patient understands there is a risk of bleeding and infection. Also discussed the very rare risk of hematoma or damage to the kidney. We also discussed the risk that the shockwave machine will fail to break the stone adequately and that the patient may need other surgical procedures. We also discussed the possibility that the patient may need a stent after the procedure. After reviewing the procedure with the patient, the patient is signed the consent form all the patient's questions were addressed and was taken back to the operating room for treatment of a kidney stone. Patient was taken back to the operating room, patient was identified by the nursing staff, we identified the side of the treatment and the patient side of treatment had been marked by my initials. The patient underwent general anesthetic and was placed supine on the lithotripter table. We then used fluoroscopy to identify the stone on the Right side. The urethra and genitals were prepped and draped in usual sterile fashion. Using a 21 Niuean rigid cystourethroscope the entire length of the urethra was normal then went into the bladder. Identified the trigone the left and right ureteral orifice. I then cannulated the Right orifice and advanced a wire up into the kidney. I then backloaded a 5 Niuean open ended catheter over the wire and injected contra st to delineate the anatomy. After the retrograde was performed I then used fluoroscopic images and guidance to advanced a wire up into the kidney and over the 0.038 glidewire I advanced a 6 Niuean by 26 cm double pigtail stent. I then pulled the 0.038 Glidewire off and the stent coiled in the kidney bladder good position. The bladder was then drained. We confirmed the position of the stent by fluoroscopy. We then positioned the patient under the lithotripter and we used triangulation technique to identify the location of the stone and then we made sure that the stone was engaged in the F2 focal point of F2 Donier lithoprior machine. Once the patient was positioned appropriately and the stone was identified and placed in the F2 focal point of the lithotripter machine we then proceeded with shockwave lithotripsy. In the beginning the shockwave was delivered at a rate of 90 shocks per minute, we monitor the EKG for any ectopy. The power was slowly increased to 5 kV and subsequently at the 7 kV. We then proceeded with the treatment we move the therapy had around during the treatment to make sure the stone stayed in the F2 focal point during the entire treatment and after 3500 shockwaves were delivered to the stone under fluoroscopic guidance the treatment was completed. The patient was given instructions to call the office to make an a follow-up appointment with an xray to evaluate the success of the treatment, pateint understands that its possible the stones may need another procedure.At this point the patient's anesthetic was reversed patient was extubated and taken back to the PACU in stable condition. Surgeon: Joseph Mora Type of Anesthesia: General Drains: stent right Admit VTE Documentation VTE Present on Admission: No VTE Mechan Device Prophylaxis: SCD's VTE Pharm Prophylaxis ordered?: No
[2023-06-14] MEDS: Tamsulosin HCl 0.4 MG Capsule PO (17:31)
[2023-06-14] MEDS: Hydroxychloroquine 200 MG Tablet PO (21:08)
[2023-06-15 03:33] VITALS: BP 127/77; PULSE 93; RESP 18; TEMP 36.4; O2SAT 93
[2023-06-15 06:49] LABS: Anion Gap 5 (5-15); BUN 51 mg/dL (7-18); BUN/Creat Ratio 17.5 RATIO (10-20); Calcium,Total 8.3 mg/dL (8.5-10.1); Chloride 108 mmol/L (98-107); Creatinine, Serum 2.91 mg/dL (0.70-1.30); EST Glomerular Filtration Rate 23 mL/min (>60); Est Glom Filt Rate - Afr Amer 27 mL/min (>60); Glucose 185 mg/dL (74-106); Potassium 4.7 mmol/L (3.5-5.1); Sodium Level 137 mmol/L (136-145)
--- NOTE | 2023-06-15 07:50 | PN.HOSP_ITS ---
Reason for Visit Reason for Visit: Diagnoses Other pericardial effusion (noninflammatory) (06/12/23) Pleural effusion, not elsewhere classified (06/12/23) Acute kidney failure, unspecified (06/12/23) Calculus of ureter (06/12/23) Unspecified renal colic (06/12/23) Subjective Subjective Feels well today. Has some urinary frequency overnight. Objective Data Objective Data Vital Signs: Vital Signs Temp Pulse Resp BP Pulse Ox O2 Del Method 36.4 C L 93 18 127/77 H 93 Room Air 06/15/23 03:33 06/15/23 03:33 06/15/23 03:33 06/15/23 03:33 06/15/23 03:33 06/15/23 03:35 Oxygen Delivery Method Room Air Weight: 82.781 kg Body Mass Index (BMI) 26.2 Intake & Output: Intake and Output for Last 24 Hours 06/13/23 06/14/23 06/15/23 23:59 23:59 23:59 Intake Total 1640 / 1640 110 / 110 Output Total 150 / 150 Balance 1640 / 1640 -40 / -40 Lab / Micro Data 06/14/23 04:40 06/15/23 05:29 Labs: Laboratory Results - last 24 hr 06/15/23 05:29: Sodium 137, Potassium 4.7, Chloride 108 H, Carbon Dioxide 24.0, Anion Gap 5, BUN 51 H, Creatinine 2.91 H, Estim Creat Clear Calc 22.30, Est GFR (MDRD) Af Amer 27 L, Est GFR (MDRD) Non-Af 23 L, BUN/Creatinine Ratio 17.5, Glucose 185 H, Calcium 8.3 L Physical Exam Const alert and no apparent distress Neuro Sensorium / Orientation: awake Psych affect normal Assessment & Plan Assessment/Plan (1) Urolithiasis: QUALIFIERS: Urinary calculus location: ureter Qualified Code(s): N20.1 - Calculus of ureter PLAN: Right-sided Start tamsulosin Urology notified by the emergency room will see the patient in consultation. Patient medically cleared to proceed with surgery. No further optimization medically is required at this time. For cystoscopy today (2) DEENA (acute kidney injury): PLAN: Improving. Patient has chronic kidney disease but is acutely worse likely due to post obstruction. Patient received IV fluids but with his pericardial fusion pleural effusions, I will discontinue that. I anticipate improvement after the stone has been removed. (3) Pericardial effusion: PLAN: No clinical evidence of tamponade. Pulses paradoxus was not present. I verify that at bedside. Concerned that this may be related with underlying heart failure but patient does have known rheumatoid arthritis which could also be another factor. Echo showed an EF 55% with posterior hypokinesis. oderate anterior pericardial effusion, partially organized. No tamponade. DW Dr. Jaquez, he recommended outpt cardiac MRI. WIll have patient follow up with cardiology as outpt. (4) Pleural effusion: PLAN: Unclear type if this is transudative versus exudative. 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 Patient is relatively asymptomatic from that. Follow up with pulmonology. PLAN: Plan Chronic conditions * CAD: Aspirin to be held on account of anticipated cystoscopy and lithotripsy * Rheumatoid arthritis: Hold hydroxychloroquine for now VTE prophylaxis: With SCDs. CODE STATUS: Addressed with the patient. Patient was to be full code. Disposition: To home today.
[2023-06-15 09:06] VITALS: BP 122/76; PULSE 111; RESP 16; TEMP 36.2; O2SAT 100
[2023-06-15 09:15] VITALS: BP 122/76; PULSE 111
[2023-06-15] MEDS: Metoprolol(XL)Succ 25 MG Tablet PO (09:15)
[2023-06-15] MEDS: 0.9% Saline Lock 10 ML Syringe IV (09:16)
--- NOTE | 2023-06-15 10:07 | DS.PCM_ITS ---
Providers Date of Admission: 06/12/23 Primary Care Physician: Dr. Raj Chow, DO Consultations 06/12/23 12:02 Consult: Urology Routine Consulting Provider: Joseph Mora Reason for Consult: kidney stone EMERGENT Consult: No MD Notified: Yes Date Notified: 06/12/23 Time Notified: 10:59 Method of Notification: ED Physician Initiated Reason For Visit: KIDNEY STONE, PERICARDIAL EFFUSION Diagnosis Discharge Diagnosis (1) Urolithiasis: Status: Inactive Code(s): N20.9 - Urinary calculus, unspecified Qualifiers: Urinary calculus location: ureter Qualified Code(s): N20.1 - Calculus of ureter Plan: Right-sided Start tamsulosin Urology notified by the emergency room will see the patient in consultation. Patient medically cleared to proceed with surgery. No further optimization medically is required at this time. For cystoscopy today (2) DEENA (acute kidney injury): Status: Acute Code(s): N17.9 - Acute kidney failure, unspecified Plan: Improving. Patient has chronic kidney disease but is acutely worse likely due to post obstruction. Patient received IV fluids but with his pericardial fusion pleural effusions, I will discontinue that. I anticipate improvement after the stone has been removed. (3) Pericardial effusion: Status: Acute Code(s): I31.39 - Other pericardial effusion (noninflammatory) Plan: No clinical evidence of tamponade. Pulses paradoxus was not present. I verify that at bedside. Concerned that this may be related with underlying heart failure but patient does have known rheumatoid arthritis which could also be another factor. Echo showed an EF 55% with posterior hypokinesis. oderate anterior pericardial e ffusion, partially organized. No tamponade. DW Dr. Jaquez, he recommended outpt cardiac MRI. WIll have patient follow up with cardiology as outpt. (4) Pleural effusion: Status: Acute Code(s): J90 - Pleural effusion, not elsewhere classified Plan: Unclear type if this is transudative versus exudative. 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 Patient is relatively asymptomatic from that. Follow up with pulmonology. Plan Chronic conditions * CAD: Aspirin to be held on account of anticipated cystoscopy and lithotripsy * Rheumatoid arthritis: Hold hydroxychloroquine for now VTE prophylaxis: With SCDs. CODE STATUS: Addressed with the patient. Patient was to be full code. Disposition: To home today. Medications at Discharge Home Medications hydroxychloroquine 200 mg tablet 200 mg PO QHS RHEUMATOID ARTHRITIS 05/26/21 cholecalciferol (vitamin D3) 50 mcg (2,000 unit) capsule 4,000 unit PO DAILY SUPPLEMENT 08/15/22 mecobalamin (vitamin B12) 1,000 mcg chewable tablet 1,000 mcg PO DAILY SUPPLEMENT 08/15/22 aspirin 81 mg tablet,delayed release (Adult Aspirin Regimen) 81 mg PO QHS HEART HEALTH 06/12/23 hydrocodone-acetaminophen 5-325mg 5mg-325mg 1 tab PO Q6H PRN Pain 06/12/23 metoprolol succinate 25 mg tablet,extended release 24 hr 25 mg PO DAILY BLOOD PRESSURE 06/12/23 oxycodone-acetaminophen 5 mg-325 mg tablet 1 tab PO Q6H PRN PAIN 06/12/23 tamsulosin 0.4 mg capsule 0.4 mg PO DAILY@1730 #30 caps 06/15/23 Hospital Course Operations - Procedures None Summary of Care Provided Minutes Spent on Discharge: 8 Hospital Course: Patient presents with right flank pain. Patient had 8.2 calculus in the proximal right ureter with right-sided hydronephrosis and hydroureter. Was diagnosed back in June 07 but patient elected to go home at that time. Patient underwent a cystoscopy on the with a lithotripsy and stent placemen t on the right. Patient tolerated the procedure well. Patient also was noted to have a moderate-sized pericardial effusion. Echocardiogram showed LV ejection fraction of 55% with posterior hypokinesis and moderate anterior pericardial effusion is partly organized but no tamponade. Did discuss with the case with Dr. Jaquez who will follow-up with the patient as outpatient and arrange for outpatient cardiac MRI. Patient denies history of rheumatoid iritis does state he has a history of osteoarthritis, however, he is on hydroxychloroquine. Weight / BMI Weight Weight: 82.781 kg Body Mass Index (BMI) 26.2 ABG / Lab / Microbiology Data 06/14/23 04:40 06/15/23 05:29 Laboratory: Laboratory Results - last 24 hr 06/15/23 05:29: Sodium 137, Potassium 4.7, Chloride 108 H, Carbon Dioxide 24.0, Anion Gap 5, BUN 51 H, Creatinine 2.91 H, Estim Creat Clear Calc 22.30, Est GFR (MDRD) Af Amer 27 L, Est GFR (MDRD) Non-Af 23 L, BUN/Creatinine Ratio 17.5, Glucose 185 H, Calcium 8.3 L D/C Instructions Discharge Diet: Low fat / Low cholesterol Call your doctor if you observe: - (Worsening abdominal pain. Blood in the urine. Chest pain. Shortness of breath.) Meaningful Use Info Meaningful Use Diagnoses (Choose all that apply): None applicable Discharge Plan Admission Admit Date/Time: 06/12/23 10:56 Primary Reason for Your Visit: Right-sided kidney stone Attending Provider: Karlos Hernandez Primary Care Provider: Raj Chow Consulting Providers: Joseph Mora Instructions Additional Instructions / Restrictions: You had a stone in your ureter (to the connects your bladder to your kidneys) that was removed by urology. You do have a stent in place and you need follow- up with urology about having that removed. He also had fluid around her heart. Echocardiogram (the ultrasound of your heart) shows that it is present and you will need to follow-up with cardiology and possibly have an MRI of your heart down the road. It is unclear how long that has been there but if you do start experiencing increasing shortness of breath or increasing swelling in her legs to notify someone or to return to the emergency room immediately. Discharge Orders/Prescriptions Prescriptions: New tamsulosin 0.4 mg Capsule 0.4 mg PO DAILY@1730 Qty: 30 0RF Continued hydroxychloroquine 200 mg tablet 200 mg PO QHS mecobalamin (vitamin B12) 1,000 mcg tablet,chewable 1,000 mcg PO DAILY cholecalciferol (vitamin D3) 50 mcg (2,000 unit) capsule 4,000 unit PO DAILY hydrocodone-acetaminophen 5-325 mg tablet 1 tab PO Q6H PRN (Reason: Pain) aspirin [Adult Aspirin Regimen] 81 mg tablet,delayed release (DR/EC) 81 mg PO QHS oxycodone-acetaminophen 5-325 mg tablet 1 tab PO Q6H PRN (Reason: PAIN ) metoprolol succinate 25 mg tablet extended release 24 hr 25 mg PO DAILY Referrals / Follow Up: Raj Chow DO [Primary Care Provider] - Within 2 Weeks Joseph Mora MD [Med Staff - Active Staff] - Within 1 Month Disposition Disposition (needs filled in before D/C Order can be placed): Home, Self Care Charges/Coding Visit Charges Inpatient E&M: 97857 Disch Hosp
[2023-06-15 15:00] VITALS: BP 130/69; PULSE 99; RESP 16; TEMP 36.3; O2SAT 99
== END 2023-06-15 16:03 | disposition home or self-care (01) | DRG 660 ==
LOC: ED 11:02 → PCU 11:13
PROVIDERS: Anesthesiology; Urology; Emergency Provider Emergency Medicine; PCP Family Medicine
PROC: 0T768DZ Dilation of Right Ureter with Intraluminal Device, Via Natural or Artificial Opening Endoscopic (ICD-10-PCS; CPT 50590; principal; 2023-06-14 15:00)
DX: N13.2 Hydronephrosis with renal and ureteral calculous obstruction (principal); I31.39 Other pericardial effusion (noninflammatory); J90 Pleural effusion, not elsewhere classified; N17.9 Acute kidney failure, unspecified; M06.9 Rheumatoid arthritis, unspecified; N18.9 Chronic kidney disease, unspecified; I12.9 Hypertensive chronic kidney disease with stage 1 through stage 4 chronic kidney disease, or unspecified chronic kidney disease; E78.5 Hyperlipidemia, unspecified; I25.10 Atherosclerotic heart disease of native coronary artery without angina pectoris; I25.2 Old myocardial infarction; Z95.5 Presence of coronary angioplasty implant and graft; Z79.82 Long term (current) use of aspirin; Z79.899 Other long term (current) drug therapy; Z87.891 Personal history of nicotine dependence; Z23 Encounter for immunization
CPT/HCPCS: 36415; 71250; 74176; 80048; 80076; 81001; 84443; 84484; 85025; 93005; 93306; 99285; J7030; Q9957; 90662; A4216; C1769; C2617; C8929; J2405

== ENCOUNTER → 2023-06-20 | Outpatient (CLI) | payer MEDICARE, OTHER, SELFPAY ==
--- NOTE | 2023-06-20 10:08 | RAD_ITS ---
EXAM: XR ABDOMEN, 1 VIEW CLINICAL INDICATION: CALCULUS OF KIDNEY TECHNIQUE: Frontal supine view of the abdomen/pelvis. COMPARISON: No relevant prior studies available. FINDINGS: GASTROINTESTINAL TRACT: Normal bowel gas pattern. ORGANS: Small stones project over the lower pole of the right kidney. A 7 mm stone noted within the mid right ureter at the L4 level. Right double-J ureteral stent catheter is in place. BONES/JOINTS: Deformity of the right acetabulum suggestive of an old healed fracture. RAD/Abdomen Single View IMPRESSION: 1. Right nephrolithiasis. 2. Right ureterolithiasis. Electronically Signed: Davi Virk MD at 15:43 EDT ,
== END | disposition home or self-care (01) ==
LOC: RAD 09:59
PROVIDERS: PCP Family Medicine; Referring Provider Urology; Visit Provider Urology
DX: N20.0 Calculus of kidney (principal)
CPT/HCPCS: 74018

== ENCOUNTER → 2023-06-26 | Outpatient (CLI) | payer MEDICARE, OTHER, SELFPAY ==
[2023-06-26 12:45] LABS: Anion Gap 5 (5-15); BUN 22 mg/dL (7-18); BUN/Creat Ratio 9.5 RATIO (10-20); Calcium,Total 8.6 mg/dL (8.5-10.1); Chloride 105 mmol/L (98-107); Creatinine, Serum 2.31 mg/dL (0.70-1.30); EST Glomerular Filtration Rate 29 mL/min (>60); Est Glom Filt Rate - Afr Amer 36 mL/min (>60); Glucose 217 mg/dL (74-106); Potassium 4.2 mmol/L (3.5-5.1); Sodium Level 136 mmol/L (136-145)
== END | disposition home or self-care (01) ==
LOC: BFHLAB 09:45
PROVIDERS: PCP Family Medicine; Referring Provider Family Medicine; Visit Provider Family Medicine
DX: N18.32 Chronic kidney disease, stage 3b (principal)
CPT/HCPCS: 36415; 80048

== ENCOUNTER 2023-06-27 11:00 | Outpatient (RCR) | payer MEDICARE, OTHER, SELFPAY ==
--- NOTE | 2023-06-05 13:34 | HP.PTEVAL ---
Patient's Visit Information Visit Information Visit Information: KIMBERLEY YOUNG is a 77 year old M referred to Physical Therapy by Dr. Sun Lopez MD with a diagnosis of Neck and L shoulder P!. Date of Evaluation: 06/05/23 Physical Therapist: Erickson Bonilla, PT, ATC Visit Plan Frequency: 2-3x /Week Duration: 4 Weeks Plan: Neck- postural edu, DTR, mobs, stretching L shoulder- rot cuff strengthening, scap stab ex's, UBE, and HEP Subjective Subjective: Pt. reports P! has started on Saturday, May 25 and has had no complete relief. Pt. said that he was performing lat pull downs when the incident happened. He originally believed that it could have been angina because it strained his chest and hurt when he was breathing. Took Hydrocodone and iced, waited a few days and the chest P! went away but the shoulder, neck and lower back were flared up so he went to the ER where he was diagnosed with a sternum strain. P! is described as an ache in the shoulder and neck which travels down the neck, into B shoulders and into the lower back. P! has been steady the last few days but hasn't gotten worse. When P! comes on, pt. states that he sits up straighter and the P! goes away. P! is not affecting sleep but will have difficulty if he lays on his side. Pt. says his appetite has been affected. Pt. is able to walk but this P! has given him less energy. P! at rest is a 5/10 and doesn't raise above that. When he breathes hard or digests food the P! is located in his upper chest. L side is more affected than his R. Pt. notes that he's not noticed any weakness. Chest x-ray was performed but no significant findings. Pt. has a history of diabetes which is under control. Pt. is R hand dominant. Pain Bilateral Shoulder: Pain Intensity (Out of 10): 5 Pain Intensity Range: Unrated Bilateral Neck: Pain Intensity (Out of 10): 5 Pain Intensity Range: Unrated Objective Objective: Neuro: UE sensation WNL to light touch, B reflexes WNL ROM: R Shoulder Flex: 130 deg; R should Abd: 120 deg; R shoulder ER: 50 deg; IR: WNL ROM: L Shoulder Flex: 115 deg; L Shoulder Abd: 120; R shoulder ER: 45 deg; IR: WNL ROM: Neck: Limited mobility in all planes B with severe guarding throughout cervical spine MMT: L shoulder is 4-/5 throughout Palpation: TTP in L posterior/lateral shoulder, TTP in L pectoralis, TTP in B traps and B upper cervical muscles. Special Tests: Positive Empty Can Test; Positive Neers Impingement Test Oswetry Disability Index (Neck) Score: 14 Balance/Special Test Scores Oswestry Neck Score: 14 Goals Goal 1:: Pt. to decrease P! 50% from time of evaluation in order to return to regular level of function. Goal Time Frame: 4-6 Weeks Goal 2:: Pt. to increase ROM in L shoulder flexion and external rotation to meet contralateral side in order to return to regular level of function. Goal Time Frame: 4-6 Weeks Goal 3:: Pt. to become I in HEP to continue exercises and improve health group home. Goal Time Frame: 4-6 Weeks Goal 4:: Pt. to increase their RUSTAM (neck) score by 7.5 points in order to maintain their ability to function in everyday life. Goal Time Frame: 4-6 Weeks Rehabilitation Potential Physical Therapy Diagnosis: Neck, L shoulder P! and limited Neck/shoulder ROM secondary to a strain of the left shoulder. Rehabilitation Potential: Good Anticipated Interventions Patient/Client Instruction: Educate patient on: Condition and Plan of Care For the Purpose of:: To improve ability to perform tasks related to life management Therapeutic Exercise to Include: Strength training, Endurance training, Body mechanics, Postural training, Flexibilty training, Active ROM and Scapular Strength/Stabilization For the Purpose of:: To decrease pain, To increase ROM and To improve muscle performance and motor function Text: Thank you for the opportunity to evaluate your patient. For Medicare and Medicare HMO plans, please review the plan of care and approve it. It will need to be FAXED BACK to us at [phone] for Medicare purposes. For Medicare only, by signing this I certify the plan of care. Please let me know if there are questions or concerns regarding this plan of care. Physician Signature: Date:
--- NOTE | 2023-09-11 09:44 | HP.PTDCSUM_ITS ---
Discharge Summary D/C summary: It has been my pleasure to treat KIMBERLEY YOUNG referred by Dr. Sun Lopez MD, with the diagnosis of Neck and L shoulder P! for a total of 4 visit(s). Discharge Date: 06/27/23 Please see the following information for a summary of their discharge status. Subjective Subjective: Pt. states his GFR is at 29 and he's concerned about his kidney function. Pt. states that his neck and shoulder is feeling well at this time. The only pain he is experiencing at this time is in his kidney area and stomach. His sleep has been disrupted d/t this. Pain Bilateral Shoulder: Pain Intensity (Out of 10): 0 Bilateral Neck: Pain Intensity (Out of 10): 0 Overall Improvement % Improvement: 100 Objective Objective/Function: Pts. pain has decreased to a 0/10 which has met his goal of lowering pain by 50%. (original pain was 5/10) Pt. ROM in L shoulder meet all contralateral side ROM planes. Pt. is I in his HEP. Pt. reported a RUSTAM Neck score of 2 on Jun at time of d/c which is a 12 point change which met his goal of 7.5 points. (original score of 14) Goals Goal 1:: Pt. to decrease P! 50% from time of evaluation in order to return to regular level of function. Goal Progress: Goal Met Goal 2:: Pt. to increase ROM in L shoulder flexion and external rotation to meet contralateral side in order to return to regular level of function. Goal Progress: Goal Met Goal 3:: Pt. to become I in HEP to continue exercises and improve health care home. Goal Progress: Goal Met Goal 4:: Pt. to increase their RUSTAM (neck) score by 7.5 points in order to maintain their ability to function in everyday life. Goal Progress: Goal Met Plan Plan: D/C patient to HEP. Pt. has HEP printed off and has received descriptive explanation of exs. Pt. has demonstrated proper technique in performing exs. D/C Information Discharge Comments: D/C to HEP d/c sentence: If there are questions or concerns regarding this patient's physical therapy, please feel free to call me at [phone]. Thank you for the referral of this patient. Sincerely, Erickson Bonilla, PT, ATC Balance/Gait/Functional tests Balance/Special Test Scores Oswestry Neck Score: 2 Improvement % Improvement: 100
== END 2023-06-27 19:01 | disposition home or self-care (01) ==
LOC: PT 11:00
PROVIDERS: PCP Family Medicine; Referring Provider Family Medicine; Visit Provider Family Medicine
DX: S16.1XXD Strain of muscle, fascia and tendon at neck level, subsequent encounter (principal); S46.912D Strain of unspecified muscle, fascia and tendon at shoulder and upper arm level, left arm, subsequent encounter
CPT/HCPCS: 97110; 97162; 97164

== ENCOUNTER 2023-07-07 14:06 | Emergency (ER) | payer MEDICARE, OTHER, SELFPAY ==
[2023-07-07 14:08] VITALS: BP 149/79; PULSE 111; RESP 18; TEMP 36.6; O2SAT 98; BMI 23.9
--- NOTE | 2023-07-07 14:53 | EDS_ITS ---
HPI <LIGIA Esqueda - Last Filed: 07/07/23 15:52> History of Present Illness Chief Complaint: Abd Pain Narrative Narrative: Patient is a 77-year-old male with history of CKD, hyperlipidemia, hypertension, history of HI. Patient presents to the emergency department with right upper abdominal pain that is been intermittent. Patient on June 14, 2023 had a stent placed for a 8 mm stone, the urologist unable to get all of the stone out. Patient is scheduled for surgery again. Patient states for the last 3 days, has noticed that has been having worsening pain to his right upper quadrant. The pain is sharp in nature. He states he had to take 2 Percocet on Saturday. However over the last 2 days the pain has gotten somewhat better. Patient felt it around 1 PM today and thought he should come into the emergency department. He denies any fever or chills. States he is urinating more frequently. Denies any back or flank pain. Denies any nausea or vomiting. PFSH <LIGIA Esqueda - Last Filed: 07/07/23 15:52> [facility]LY [facility] Medical History DEENA (acute kidney injury) Arthritis Atherosclerosis of [place] coronary artery of [place] heart without angina pectoris BPH (benign prostatic hyperplasia) Calculus of proximal right ureter Chronic kidney disease (CKD) Dilated aortic root Essential (primary) hypertension History of non-ST elevation myocardial infarction (NSTEMI) (12/2015) Hyperlipidemia Hypothyroidism Mass of anus Obstructive sleep apnea Plantar fasciitis Tubular adenoma of colon (09/26/20) Type 2 diabetes mellitus without complications Home Medications hydroxychloroquine 200 mg tablet 200 mg PO QHS RHEUMATOID ARTHRITIS 05/26/21 [History Last Taken 06/11/23] cholecalciferol (vitamin D3) 50 mcg (2,000 unit) capsule 4,000 unit PO DAILY SUPPLEMENT 08/15/22 [History Last Taken 06/11/23] mecobalamin (vitamin B12) 1,000 mcg chewable tablet 1,000 mcg PO DAILY SUPPLEMENT 08/15/22 [History Last Taken 06/11/23] aspirin 81 mg tablet,delayed release (Adult Aspirin Regimen) 81 mg PO QHS [facility] 06/12/23 [History Last Taken 06/11/23] hydrocodone-acetaminophen 5-325mg 5mg-325mg 1 tab PO Q6H PRN Pain 06/12/23 [History Last Taken Unknown] oxycodone-acetaminophen 5 mg-325 mg tablet 1 tab PO Q6H PRN PAIN 06/12/23 [History Last Taken 06/11/23] tamsulosin 0.4 mg capsule 0.4 mg PO DAILY@1730 #30 caps 06/15/23 [Rx Last Taken Unknown] metoprolol succinate 25 mg tablet,extended release 24 hr 25 mg PO DAILY BLOOD PRESSURE #90 tabs 06/24/23 [Rx Last Taken Unknown] Allergy/AdvReac Type Severity Reaction Status Date / Time rosuvastatin [From Crestor] AdvReac Severe Myalgias Verified 07/07/23 14:09 and joint pain Family History Mother CAD (coronary artery disease) Hx of CABG Father CAD (coronary artery disease) Hx of CABG Brother CAD (coronary artery disease) Hx of CABG Myocardial infarction Diabetes Surgical History History of colonoscopy (2007) History of colonoscopy (09/26/20) History of coronary artery stent placement (12/25/15) History of esophagogastroduodenoscopy (EGD) (2005) History of hemorrhoidectomy History of left heart catheterization (12/2015) History of nasal septoplasty History of ureter stent (12/2019) Social History Smoking Status: Former smoker alcohol intake: current alcohol intake frequency: a few times a week Alcohol type: beer substance use type: does not use caffeine: Yes Type: coffee what type of physical activity do you participate in: walking frequency: daily duration: 30-45 minutes/day seatbelt use: always do you feel safe at home: Yes ROS <LIGIA Esqueda - Last Filed: 07/07/23 15:52> ROS ED ROS Narrative Constitutional: Negative for fever, chills, weight loss, weakness Eyes: Negative for vision loss, vision change, double vision ENT: Negative for any sore throat, ear pain, congestion Cardiovascular: Negative for any chest pain, tightness, palpitations Respiratory: Negative for any cough, sputum production, hemoptysis, dyspnea, dyspnea on exertion, orthopnea Gastrointestinal: Negative for any nausea, vomiting, diarrhea, constipation, blood in stool, blood in vomit. Positive for right upper abdominal pain : Negative for any urinary frequency, dysuria, retention, blood in urine Muscle skeletal: Negative for any muscle joint pain, stiffness, myalgias, arthralgias, neck pain, back pain Neurological: Negative for any headache, syncope, numbness or tingling, dizziness Skin: Negative for any rashes, lumps, itching, abrasions, lacerations Psychiatric: Negative for any depression, anxiety, stress, suicidal ideation, homicidal ideation Hematologic: Negative for any easy bruising, excessive bruising, easy bleeding Allergies: Negative for any eczema, hives, rash EXAM <LIGIA Esqueda - Last Filed: 07/07/23 15:52> Physical Exam Narrative Exam Narrative: Vital signs reviewed. Patient on my examination complained of no pain at this time. Patient states the pain is intermittent. HEET: Head normocephalic atraumatic, TMs clear bilaterally. Posterior pharynx is clear, moist mucous membranes. Nares clear bilaterally. Neck: Supple with no lymphadenopathy or tenderness. No signs of meningismus, negative jolt sign. Cardiac: Regular rate and rhythm no murmurs gallops or rubs, equal peripheral pulses bilaterally. Respiratory: Lungs clear to auscultation bilaterally. No chest tenderness. Abdomen: Soft, nontender, nondistended. No abdominal bruit or pulsatile masses. No hepatosplenomegaly. Negative for any peritoneal signs. Negative for any flank or CVA tenderness. Active bowel sounds in all quadrants. Extremities: No peripheral edema, no signs of gross trauma or deformity. Active full range of motion of all extremities. Neuro: Cranial nerves II through XII intact, no focal neurological deficits. Skin: Clean dry and intact with no rash, purpura, petechiae, vesicles or pustules. Backs/flank: No CVA tenderness, no midline spinal tenderness, no deformity. Psych: Normal mood and affect. No SI, HI or acute psychosis. Const Vital Signs: 07/07/23 14:08 Temperature 98 F Temperature Source Temporal Pulse Rate 111 H Respiratory Rate 18 Blood Pressure 149/79 H Blood Pressure Mean 102 Pulse Ox 98 Oxygen Delivery Method Room Air Positive well nourished and well developed General Appearance ED: well developed <Dr. Osmany Barrios MD - Last Filed: 07/07/23 15:19> Physical Exam Const Vital Signs: 07/07/23 14:08 Temperature 98 F Temperature Source Temporal Pulse Rate 111 H Respiratory Rate 18 Blood Pressure 149/79 H Blood Pressure Mean 102 Pulse Ox 98 Oxygen Delivery Method Room Air MDM <LIGIA Esqueda - Last Filed: 07/07/23 15:52> MDM Lab Data Labs: Laboratory Results - last 24 hr 07/07/23 07/07/23 14:40 14:50 WBC 8.1 RBC 4.11 L Hgb 12.0 L Hct 38.7 L MCV 94.2 H MCH 29.2 MCHC 31.0 L RDW Std Deviation 44.4 H RDW Coeff of [place] 12.9 Plt Count 206 MPV 10.5 Immature Gran % (Auto) 0.600 Neut % (Auto) 79.6 H Lymph % (Auto) 9.2 L [place] % (Auto) 9.2 Eos % (Auto) 0.9 Baso % (Auto) 0.5 Absolute Neuts (auto) 6.4 Absolute Lymphs (auto) 0.74 L Nucleated RBC % 0 Sodium 138 Potassium 3.7 Chloride 101 Carbon Dioxide 30.0 Anion Gap 7 BUN 27 H Creatinine 2.28 H Estim Creat Clear Calc 28.46 Est GFR (MDRD) Af Amer 36 L Est GFR (MDRD) Non-Af 30 L BUN/Creatinine Ratio 11.8 Glucose 166 H Calcium 8.6 Total Bilirubin 0.40 AST 15 ALT 18 Alkaline Phosphatase 95 Total Protein 7.4 Albumin 3.2 Globulin 4.2 Albumin/Globulin Ratio 0.8 L Lipase 33 Urine Color Yellow Urine Clarity Clear Urine pH 6.5 Ur Specific [place] 1.015 Urine Protein 30 H Urine Glucose (UA) 100 H Urine Ketones Negative Urine Occult Blood 50 H Urine Nitrite Negative Urine Bilirubin Negative Urine Urobilinogen Normal Ur Leukocyte Esterase 500 H Urine RBC 0-5 SEEN Urine WBC 10-25 SEEN Ur Squamous Epith Cells 0 SEEN Urine Bacteria 0 SEEN Urine Mucus 0 SEEN Radiography Diagnostic Testing: Clinical Impression(s) from Imaging Studies Chest X-Ray 07/07/23 15:20 IMPRESSION: There are no acute findings. Electronically Signed: Erickson Ramírez MD at 15:35 EDT , Treatment and Re-Evaluation :: Patient appears generally well, patient appears nontoxic, vital signs are stable. Presenting to the emergency department for complaints of right upper abdominal pain. Patient is concerned because he did have a stent placed in his right kidney on June 14, 2023. This was done by Dr. Muniz. Patient states the pain continued over the last 2 days and is here for evaluation. Differential diagnosis includes acute cholecystitis, muscle pain, fatty liver disease. Patient received basic laboratory values and will be reviewed and compared to previous. Patient's laboratory values shows a hemoglobin of 12.0, this is baseline for the patient. Patient's chemistries were improved, patient's creatinine that was 3.76 on June 14 of this year is now 2.28, patient's GFR is now 30. Patient's chest x-ray two-view inter by ER physician was unremarkable. At this time, do believe patient stable for discharge. I do not believe that any intra-abdominal emergency happening at this time. Patient on reevaluation was sleeping in the bedroom. He is in no distress. Patient will continue to follow-up with Dr. Muniz. Patient stable for discharge <Dr. Osmany Barrios MD - Last Filed: 07/07/23 15:19> [facility] Narrative Medical decision making narrative: I have personally performed a face to face assessment of the patient and have reviewed the ZEENAT Note. I performed a substantive portion of the visit including all aspects of the following. My roche findings include: History is 77-year-old male known history of right-sided kidney stone with ureteral stent. Presents with atypical right-sided right upper quadrant and right lower rib cage pain since Saturday. Currently the pain is resolved. Denies any dysuria. No fever. No shortness of breath. No pleuritic pain. No history of gallbladder disease. History of prior abdominal CTs showing no signs of gallbladder disease or gallstones. No change with food. No weight loss. No hemoptysis. No history of DVT or PE. Exam is [well-appearing 77-year-old male. Vital signs stable afebrile. Pulse ox 90% on room air no hypoxia. H EENT exam unremarkable. Lungs clear equal symmetrical bilaterally. Heart regular rhythm rate about 90. Abdomen is soft, nontender, nondistended, normal bowel sounds without peritoneal signs. He has absolutely no abdominal tenderness. The right upper quadrant completely nontender. His right rib cage is nontender. Moving all 4 extremities. Calves are nontender without edema or cords. Neurologically is awake alert.] Medical Decision Making [77-year-old male who is currently completely pain-free complaining of right-sided rib/upper quadrant abdominal pain. Exam is totally benign. Pending labs.] Other additions or changes: [None] History & Record Review Discussion w/independent historian: Patient Additional record(s) reviewed:: Prior inpatient record, Prior outpatient record, Prior ED visit and Prior labs Lab Data Attestation: I reviewed the patient's lab results. Lab results narrative: CBC shows white count 8. H&H 12 and 38. Platelets 206. Labs: Laboratory Results - last 24 hr 07/07/23 07/07/23 14:40 14:50 WBC 8.1 RBC 4.11 L Hgb 12.0 L Hct 38.7 L MCV 94.2 H MCH 29.2 MCHC 31.0 L RDW Std Deviation 44.4 H RDW Coeff of [place] 12.9 Plt Count 206 MPV 10.5 Immature Gran % (Auto) 0.600 Neut % (Auto) 79.6 H Lymph % (Auto) 9.2 L [place] % (Auto) 9.2 Eos % (Auto) 0.9 Baso % (Auto) 0.5 Absolute Neuts (auto) 6.4 Absolute Lymphs (auto) 0.74 L Nucleated RBC % 0 Sodium 138 Potassium 3.7 Chloride 101 Carbon Dioxide 30.0 Anion Gap 7 BUN 27 H Creatinine 2.28 H Estim Creat Clear Calc 28.46 Est GFR (MDRD) Af Amer 36 L Est GFR (MDRD) Non-Af 30 L BUN/Creatinine Ratio 11.8 Glucose 166 H Calcium 8.6 Total Bilirubin 0.40 AST 15 ALT 18 Alkaline Phosphatase 95 Total Protein 7.4 Albumin 3.2 Globulin 4.2 Albumin/Globulin Ratio 0.8 L Lipase 33 Urine Color Yellow Urine Clarity Clear Urine pH 6.5 Ur Specific [place] 1.015 Urine Protein 30 H Urine Glucose (UA) 100 H Urine Ketones Negative Urine Occult Blood 50 H Urine Nitrite Negative Urine Bilirubin Negative Urine Urobilinogen Normal Ur Leukocyte Esterase 500 H Urine RBC 0-5 SEEN Urine WBC 10-25 SEEN Ur Squamous Epith Cells 0 SEEN Urine Bacteria 0 SEEN Urine Mucus 0 SEEN Radiography Diagnostic Testing: Clinical Impression(s) from Imaging Studies Chest X-Ray 07/07/23 15:20 IMPRESSION: There are no acute findings. Electronically Signed: Erickson Ramírez MD at 15:35 EDT Reading Location ID and State: [facility] / [place] , Service support , Discharge Plan Triage Chief Complaint: Abd Pain ED Midlevel Provider: Silvestre Pitts ED Provider: Osmany Barrios Dx/Rx/DC Orders Clinical Impression: Acute upper abdominal pain, History of renal insufficiency, History of kidney stones Instructions: Abdominal Pain Prescriptions: No Action hydroxychloroquine 200 mg tablet 200 mg PO QHS mecobalamin (vitamin B12) 1,000 mcg tablet,chewable 1,000 mcg PO DAILY cholecalciferol (vitamin D3) 50 mcg (2,000 unit) capsule 4,000 unit PO DAILY hydrocodone-acetaminophen 5-325 mg tablet 1 tab PO Q6H PRN (Reason: Pain) aspirin [Adult Aspirin Regimen] 81 mg tablet,delayed release (DR/EC) 81 mg PO QHS oxycodone-acetaminophen 5-325 mg tablet 1 tab PO Q6H PRN (Reason: PAIN ) tamsulosin 0.4 mg Capsule 0.4 mg PO DAILY@1730 Qty: 30 0RF metoprolol succinate 25 mg tablet extended release 24 hr 25 mg PO DAILY Qty: 90 3RF Primary Care Provider: Raj Chow Referrals: Joseph Mora MD [Med Staff - Active Staff] - Raj Chow DO [Primary Care Provider] - Activity Restrictions/Additional Instructions: Please follow-up. Please return for any worsening symptoms. Your creatinine and GFR are improving. Disposition Disposition: Home, Self Care
[2023-07-07 15:04] LABS: Bacteria 0 SEEN /hpf (None Seen); Mucous, Urine 0 SEEN /hpf (<or=2+); Squamous Epithelial Cells - UA 0 SEEN /hpf (0-5)
[2023-07-07 15:08] LABS: Color, Urine Yellow (Yellow); Glucose, Dipstick 100 mg/dl (Normal); Ketone-Dipstick Negative (Negative); Leukocyte Esterase-Dipstick 500 /ul (Negative); Nitrite-Dipstick Negative (Negative); Occult Blood-Urine 50 /ul (Negative); Protein-Dipstick 30 mg/dl (Negative); Specific Gravity, Urine 1.015 (1.002-1.030); Urine Bilirubin Dipstick Negative (Negative); Urine Clarity Clear (Clear); Urine Urobilinogen Normal (Normal); Urine pH 6.5 (5.0 - 8.0)
[2023-07-07 15:09] LABS: Absolute Lymphocyte Count 0.74 X10^3/uL (0.83-4.51); Absolute Neutrophil Count 6.4 X10^3/uL (2.0-7.7); Basophil# 0.04 X10^3/uL; Basophil% 0.5 % (0-1); Eosinophil# 0.07 X10^3/uL; Eosinophils% 0.9 % (0-5); Hematocrit 38.7 % (40-54); Lymphocyte # 0.74 X10^3/ul (0.83-4.51); Lymphocyte % 9.2 % (19-41); Mean Corpuscular Hgb 29.2 pg (27.0-32.0); Mean Corpuscular Volume 94.2 fL (80-94); Mean Platelet Vol. 10.5 fl (6.2-12.0); Monocyte# 0.74 X10^3/uL; Monocyte% 9.2 % (0-10); NRBC Flagged by Analyzer 0 % (0-5); Neutrophil # 6.41 X10^3/uL (2.7-7.7); Neutrophil % 79.6 % (47-70); Platelet Count 206 K/mm3 (150-450); RBC Distribution Width CV 12.9 % (11.6-14.6); RBC Distribution Width SD 44.4 fl (35.1-43.9); Red Blood Count 4.11 M/mm3 (4.6-6.2); White Blood Count 8.1 K/mm3 (4.4-11.0)
[2023-07-07 15:19] LABS: Red Blood Cells-Urine 0-5 SEEN /hpf (0-5); White Blood Cells 10-25 SEEN /hpf (0-5)
--- NOTE | 2023-07-07 15:20 | RAD_ITS ---
STUDY: XR Chest 2 Views 07/07/2023 3:26 PM REASON FOR EXAM: Male, 77 years old. atypical right sided cp COMPARISON: 05/25/2023 TECHNIQUE: XR Chest 2 Views FINDINGS: There is no demonstrated pleural abnormality. There is a metal sideplate transfixing the left clavicle. There are cortical screws holding the plate in place. Normal heart size. Normal mediastinum. Normal [place]. Prominent appearing increased interstitial lung markings. Normal visualized pulmonary arteries. There is atherosclerotic calcification of the aortic arch with tortuosity. There are diffuse degenerative changes of the visualized thoracic spine. There is degenerative osteoarthritis of the bilateral shoulders. There are no acute findings of the upper abdomen. RAD/Chest PA and Lateral IMPRESSION: There are no acute findings. Electronically Signed: Erickson Ramírez MD at 15:35 EDT ,
[2023-07-07 15:24] LABS: ALB/GLOB Ratio 0.8 RATIO (0.9-2.4); AST(SGOT) 15 U/L (15-37); Alanine Aminotransfer ALT/SGPT 18 U/L (16-61); Albumin, Serum 3.2 g/dL (3.2-5.0); Alkaline Phosphatase 95 U/L (45-117); Anion Gap 7 (5-15); BUN 27 mg/dL (7-18); BUN/Creat Ratio 11.8 RATIO (10-20); Calcium,Total 8.6 mg/dL (8.5-10.1); Chloride 101 mmol/L (98-107); Creatinine, Serum 2.28 mg/dL (0.70-1.30); EST Glomerular Filtration Rate 30 mL/min (>60); Est Glom Filt Rate - Afr Amer 36 mL/min (>60); Estimated Creatinine Clearance 28.46 ml/min; Globulin 4.2 g/dL (2.2-4.2); Glucose 166 mg/dL (74-106); Lipase 33 U/L (13-75); Potassium 3.7 mmol/L (3.5-5.1); Protein, Total 7.4 g/dL (6.4-8.2); Sodium Level 138 mmol/L (136-145)
== END 2023-07-07 16:02 | disposition home or self-care (01) ==
PROVIDERS: Nurse Practitioner; Emergency Provider Emergency Medicine; PCP Family Medicine; Visit Provider Emergency Medicine
DX: R10.11 Right upper quadrant pain (principal); I12.9 Hypertensive chronic kidney disease with stage 1 through stage 4 chronic kidney disease, or unspecified chronic kidney disease; I25.10 Atherosclerotic heart disease of native coronary artery without angina pectoris; N18.9 Chronic kidney disease, unspecified; I25.2 Old myocardial infarction; G47.33 Obstructive sleep apnea (adult) (pediatric); Z79.82 Long term (current) use of aspirin; Z79.899 Other long term (current) drug therapy; Z87.891 Personal history of nicotine dependence; Z95.5 Presence of coronary angioplasty implant and graft
CPT/HCPCS: 71046; 80053; 81001; 83690; 85025; 87086; 87088; 99283; A4216

== ENCOUNTER 2023-07-21 10:02 | Inpatient (IN) | payer MEDICARE, OTHER, SELFPAY ==
[2023-07-21] VITALS (13 sets, daily range): BP systolic 92–126; BP diastolic 59–77; PULSE 116–128; RESP 16–35; TEMP 36.5–38.2; O2SAT 94–995; BMI 25.2; BMI 25.4; BMI 25.5
[2023-07-21 10:21] LABS: Mucous, Urine 0 SEEN /hpf (<or=2+); Squamous Epithelial Cells - UA 0 SEEN /hpf (0-5)
[2023-07-21 10:24] LABS: Color, Urine Yellow (Yellow); Glucose, Dipstick Normal (Normal); Ketone-Dipstick 5 mg/dl (Negative); Leukocyte Esterase-Dipstick 500 /ul (Negative); Nitrite-Dipstick Positive (Negative); Occult Blood-Urine 250 /ul (Negative); Protein-Dipstick 100 mg/dl (Negative); Specific Gravity, Urine 1.015 (1.002-1.030); Urine Clarity Cloudy (Clear); Urine Urobilinogen 8 mg/dl (Normal); Urine pH 6.5 (5.0 - 8.0)
[2023-07-21 10:29] LABS: Hematocrit 42.3 % (40-54); Hemoglobin 13.4 g/dL (13.0-16.5); Mean Corp Hgb Conc 31.7 g/dL (32-36); Mean Corpuscular Hgb 28.9 pg (27.0-32.0); Mean Corpuscular Volume 91.4 fL (80-94); Mean Platelet Vol. 9.4 fl (6.2-12.0); POSITIVE DIFFERENTIAL YES; POSITIVE MORPHOLOGY YES; Platelet Count 210 K/mm3 (150-450); RBC Distribution Width SD 46.3 fl (35.1-43.9); Red Blood Count 4.63 M/mm3 (4.6-6.2); White Blood Count 28.6 K/mm3 (4.4-11.0)
[2023-07-21 10:31] LABS: Bacteria 1+ /hpf (None Seen); Red Blood Cells-Urine > 100 SEEN /hpf (0-5); Urine Bilirubin Dipstick 3 mg/dL (Negative); White Blood Cells 50-100 SEEN /hpf (0-5)
[2023-07-21 10:45] LABS: Anion Gap 7 (5-15); BUN 28 mg/dL (7-18); BUN/Creat Ratio 10.6 RATIO (10-20); Calcium,Total 8.6 mg/dL (8.5-10.1); Chloride 102 mmol/L (98-107); Creatinine, Serum 2.63 mg/dL (0.70-1.30); EST Glomerular Filtration Rate 25 mL/min (>60); Est Glom Filt Rate - Afr Amer 31 mL/min (>60); Glucose 157 mg/dL (74-106); Potassium 3.7 mmol/L (3.5-5.1); Sodium Level 137 mmol/L (136-145)
--- NOTE | 2023-07-21 10:51 | CT_ITS ---
EXAM: CT ABDOMEN AND PELVIS WITHOUT INTRAVENOUS CONTRAST CLINICAL INDICATION: llq abdominal pain TECHNIQUE: Helically acquired images were obtained of the abdomen and pelvis without intravenous contrast. This CT exam was performed using one or more of the following dose reduction techniques: automated exposure control, adjustment of the mA and/or kV according to patient size, and/or use of iterative reconstruction technique. COMPARISON: CT Abdomen Pelvis dated 06/07/2023 FINDINGS: LOWER THORAX: Resolution the previously noted pericardial effusion. Heart remains normal size. ABDOMEN: LIVER: Normal. Homogeneous. PANCREAS: Normal. No focal cystic mass. SPLEEN: Normal. Normal size without focal cystic or solid mass. ADRENALS: Normal. No nodules. KIDNEYS AND URETERS: Previously noted stone within the proximal right ureter is now present within the distal portion of the ureter adjacent to the ureterovesical junction. No dilatation of the left renal collecting system. Small nonobstructive right renal stones. STOMACH AND BOWEL: Normal. No bowel distention. No focal inflammatory change. PELVIS: APPENDIX: Appendix is visualized and normal in appearance. BLADDER: Normal. REPRODUCTIVE: Stable prostatomegaly. ABDOMEN and PELVIS: INTRAPERITONEAL SPACE: Normal. No ascites or other fluid collection. No free air. BONES/JOINTS: No suspicious lytic or blastic abnormality. SOFT TISSUES: Normal. No discrete abdominal or pelvic wall hernia. VASCULATURE: Normal. Abdominal aorta is non-dilated. LYMPH NODES: Normal. No enlarged lymph nodes. TUBES, LINES AND DEVICES: Interval placement of a left double-J ureteral stent catheter. CT/Abdomen/Pelvis without Cont IMPRESSION: 1. Progression of the right ureteral stone without obstructive changes of the right renal collecting system. 2. Right nephrolithiasis. 3. Interval placement of a left double-J ureteral stent catheter. Electronically Signed: Davi Virk MD at 11:32 EST ,
[2023-07-21] MEDS: Ondansetron 4 MG/2 ML Vial IV (10:52)
[2023-07-21] MEDS: 0.9% Normal Saline (1000mL) 1,000 ML 999 ML IV ×2 (10:52→12:46)
[2023-07-21] MEDS: fentaNYL 100 MCG/2 ML Ampul 25 MCG IV ×2 (10:52→12:25)
[2023-07-21 10:54] LABS: Differential Indicated MANUAL DIFF
[2023-07-21 10:57] LABS: Neutrophil-Band 5 % (0-5); Neutrophil-Segmented 87 % (47-70); Total Cells Counted 100 (MANUAL DIFF)
[2023-07-21 10:58] LABS: Lymphocyte 4 % (19-41); Metamyelocyte 1 % (0-1); Monocyte 3 % (0-10)
[2023-07-21 10:59] LABS: Absolute Lymphocyte Count 1.14 X10^3/uL (0.83-4.51); Absolute Neutrophil Count 26.6 X10^3/uL (2.0-7.7); Lymphocyte # 1.14 X10^3/ul (0.83-4.51); Neutrophil # 26.61 X10^3/uL (2.7-7.7)
[2023-07-21 11:00] LABS: Differential Comment SCANNED; Platelet Estimate ADEQUATE (ADEQ); Red Cell Morphology NORM C+C NORMAL (NORM C&C)
--- NOTE | 2023-07-21 11:18 | EX.ED.GUMALE ---
HPI History of Present Illness Chief Complaint: Male Pain/Injury Narrative Narrative: 77-year-old male with history of kidney stones, UTI following with Dr. Mora who reportedly placed a renal stent in the right ureter on Saturday. This was due to right-sided kidney stones. Patient states he started to feel like his urethra was burning this morning. He is able to void. He complains of left lower quadrant abdominal pain when he voids. He has not had a fever but subjectively feels like he is chilled. He feels generally unwell. He is not vomiting but has mild nausea. Patient states that he is on antibiotics and takes it 3 times a day but cannot recall what this medication is. [facility] Medical History DEENA (acute kidney injury) Arthritis Atherosclerosis of [place] coronary artery of [place] heart without angina pectoris BPH (benign prostatic hyperplasia) Calculus of proximal right ureter Chronic kidney disease (CKD) Dilated aortic root Essential (primary) hypertension History of non-ST elevation myocardial infarction (NSTEMI) (12/2015) Hyperlipidemia Hypothyroidism Mass of anus Obstructive sleep apnea Plantar fasciitis Tubular adenoma of colon (09/26/20) Type 2 diabetes mellitus without complications Home Medications hydroxychloroquine 200 mg tablet 200 mg PO QHS RHEUMATOID ARTHRITIS 05/26/21 [History Last Taken 06/11/23] cholecalciferol (vitamin D3) 50 mcg (2,000 unit) capsule 4,000 unit PO DAILY SUPPLEMENT 08/15/22 [History Last Taken 06/11/23] mecobalamin (vitamin B12) 1,000 mcg chewable tablet 1,000 mcg PO DAILY SUPPLEMENT 08/15/22 [History Last Taken 06/11/23] aspirin 81 mg tablet,delayed release (Adult Aspirin Regimen) 81 mg PO QHS HEART [facility] 06/12/23 [History Last Taken 06/11/23] hydrocodone-acetaminophen 5-325mg 5mg-325mg 1 tab PO Q6H PRN Pain 06/12/23 [History Last Taken Unknown] oxycodone-acetaminophen 5 mg-325 mg tablet 1 tab PO Q6H PRN PAIN 06/12/23 [History Last Taken 06/11/23] tamsulosin 0.4 mg capsule 0.4 mg PO DAILY@1730 #30 caps 06/15/23 [Rx Last Taken Unknown] metoprolol succinate 25 mg tablet,extended release 24 hr 25 mg PO DAILY BLOOD PRESSURE #90 tabs 06/24/23 [Rx Last Taken Unknown] Allergy/AdvReac Type Severity Reaction Status Date / Time rosuvastatin [From Crestor] AdvReac Severe Myalgias Verified 07/21/23 10:22 and joint pain Family History Mother CAD (coronary artery disease) Hx of CABG Father CAD (coronary artery disease) Hx of CABG Brother CAD (coronary artery disease) Hx of CABG Myocardial infarction Diabetes Surgical History History of colonoscopy (2007) History of colonoscopy (09/26/20) History of coronary artery stent placement (12/25/15) History of esophagogastroduodenoscopy (EGD) (2005) History of hemorrhoidectomy History of left heart catheterization (12/2015) History of nasal septoplasty History of ureter stent (12/2019) Social History Smoking Status: Former smoker alcohol intake: current alcohol intake frequency: a few times a week Alcohol type: beer substance use type: does not use caffeine: Yes Type: coffee what type of physical activity do you participate in: walking frequency: daily duration: 30-45 minutes/day seatbelt use: always do you feel safe at home: Yes ROS ROS ED Constitutional Constitutional ED: Reports chills and subjective Eyes Eyes: Denies blurry vision or change in vision ENT ENT ED: Denies rhinorrhea or sore throat Cardiovascular Cardiovascular: Denies chest pain or palpitations Respiratory/Chest Respiratory/Chest: Denies cough or dyspnea Gastrointestinal Gastrointestinal: Reports abdominal pain, constipation and nausea; Denies diarrhea Genitourinary Genitourinary ED: Reports dysuria and hematuria Musculoskeletal Musculoskeletal: Reports myalgias; Denies arthralgias or back pain Integumentary Denies abscess Neurologic Neurologic: Reports headache(s); Denies paresthesias or weakness Psychiatric Psychiatric: Denies anxiety or depression EXAM Physical Exam Const Vital Signs: 07/21/23 10:03 07/21/23 10:27 07/21/23 11:25 Temperature 98 F 98.2 F Temperature Source Temporal Oral Pulse Rate 128 H 119 H 116 H Respiratory Rate 18 18 20 H Blood Pressure 120/77 111/64 109/61 Blood Pressure Mean 91 79 77 Pulse Ox 99 96 96 Oxygen Delivery Method Room Air Room Air Room Air 07/21/23 12:26 Temperature Temperature Source Pulse Rate 119 H Respiratory Rate 35 H Blood Pressure 106/65 Blood Pressure Mean 78 Pulse Ox 95 Oxygen Delivery Method Room Air Positive well nourished General Appearance ED: Negative for pallor HEENT Reports moist mucous membranes normocephalic Eyes PERRL Neck no lymphadenopathy Resp normal respiratory effort and clear to auscultation bilaterally Cardio regular rate and regular rhythm GI non-distended and no masses Palpation: tender LLQ Back/Spine no CVA tenderness Neuro oriented x3, CN's II-XII intact bilaterally, moves all extremities and no focal motor deficits Sensorium / Orientation: alert Motor Exam: strength 5/5 throughout Psych mental status grossly normal Skin General Skin Exam: Negative for jaundice or pallor MDM MDM MDM Narrative Medical decision making narrative: -year-old male presenting with left lower quadrant pain, dysuria. Differential includes UTI, septic kidney stone, diverticulitis colitis, dehydration, electrolyte maladies, pyelonephritis. CBC and BMP were obtained initially to assess white blood cell count, hemoglobin, platelets, renal function electrolytes. Urinalysis was obtained to assess for UTI. Patient medicated with 1 L of normal saline, fentanyl and Zofran for pain and nausea. Patient initially noted to be tachycardic otherwise normotensive without fever. White blood cell count came back at 28.6. Hemoglobin stable 13.4. Platelets are normal at 9.4. Creatinine is elevated at 2.60 with a baseline of 2.38. Urinalysis consistent with infection. Patient is given a gram of Rocephin. Urine culture was obtained. Blood cultures were obtained. Lactic acid and coagulation studies were added. Patient given 30 cc/kg of IV fluids. Reviewed previous echocardiogram showed an EF of 55%. CT of the abdomen pelvis without contrast was obtained and shows a retained kidney stone in the distal ureter which was previously in the proximal ureter on the right. The stent appears to be in the left ureter. Given my concern for septic stone given the patient's work-up Dr. Mora was paged at 10:55 AM. A second notification was sent at 1126 that he has not answered his phone. Findings were discussed with the patient. Still awaiting phone call back from urology 12:26 PM. I was told that the engineering secretary did get a hold of Dr. Mora's family member after calling his house and she stated that she would let him know that we were reaching out to him. Discussed case with patient at about 12:[address] Mora who states that he will come in and take the patient to the OR. Patient is aware of this. Lactic acid returned within normal limits at 1.8. Coagulation studies are normal. Impression: 1. Right distal ureteral calculi 2. Septic stone she 3. Leukocytosis Lab Data Attestation: I reviewed the patient's lab results. Labs: Laboratory Results - last 24 hr 07/21/23 07/21/23 07/21/23 10:17 10:21 11:20 WBC 28.6 H RBC 4.63 Hgb 13.4 Hct 42.3 MCV 91.4 MCH 28.9 MCHC 31.7 L RDW Std Deviation 46.3 H RDW Coeff of [place] 14.0 Plt Count 210 MPV 9.4 Neut % (Auto) Not Reportable Absolute Neuts (auto) 26.6 H Absolute Lymphs (auto) 1.14 Total Counted 100 Neutrophils % (Manual) 87 H Band Neutrophils % 5 Lymphocytes % (Manual) 4 L Monocytes % (Manual) 3 Metamyelocytes % 1 Differential Comment SCANNED Diff Path Review May foll Platelet Estimate ADEQUATE RBC Morphology NORM C+C PT 15.3 H INR 1.2 Sodium 137 Potassium 3.7 Chloride 102 Carbon Dioxide 28.0 Anion Gap 7 BUN 28 H Creatinine 2.63 H Estim Creat Clear Calc 23.90 Est GFR (MDRD) Af Amer 31 L Est GFR (MDRD) Non-Af 25 L BUN/Creatinine Ratio 10.6 Glucose 157 H Lactic Acid 1.8 Calcium 8.6 Urine Color Yellow Urine Clarity Cloudy Urine pH 6.5 Ur Specific [place] 1.015 Urine Protein 100 H Urine Glucose (UA) Normal Urine Ketones 5 H Urine Occult Blood 250 H Urine Nitrite Positive H Urine Bilirubin 3 H Urine Urobilinogen 8 H Ur Leukocyte Esterase 500 H Urine RBC > 100 SEEN Urine WBC 50-100 SEEN Ur Squamous Epith Cells 0 SEEN Urine Bacteria 1+ Urine Mucus 0 SEEN Radiography Diagnostic Testing: Clinical Impression(s) from Imaging Studies Abdomen/Pelvis CT 07/21/23 10:51 IMPRESSION: 1. Progression of the right ureteral stone without obstructive changes of the right renal collecting system. 2. Right nephrolithiasis. 3. Interval placement of a left double-J ureteral stent catheter. Electronically Signed: Davi Virk MD at 11:32 EST , Discharge Plan Triage Chief Complaint: Male Pain/Injury ED Provider: Josemanuel Roa Dx/Rx/DC Orders Prescriptions: No Action hydroxychloroquine 200 mg tablet 200 mg PO QHS mecobalamin (vitamin B12) 1,000 mcg tablet,chewable 1,000 mcg PO DAILY cholecalciferol (vitamin D3) 50 mcg (2,000 unit) capsule 4,000 unit PO DAILY hydrocodone-acetaminophen 5-325 mg tablet 1 tab PO Q6H PRN (Reason: Pain) aspirin [Adult Aspirin Regimen] 81 mg tablet,delayed release (DR/EC) 81 mg PO QHS oxycodone-acetaminophen 5-325 mg tablet 1 tab PO Q6H PRN (Reason: PAIN ) tamsulosin 0.4 mg Capsule 0.4 mg PO DAILY@1730 Qty: 30 0RF metoprolol succinate 25 mg tablet extended release 24 hr 25 mg PO DAILY Qty: 90 3RF Primary Care Provider: Raj Chow Referrals: Raj Chow DO [Primary Care Provider] -
[2023-07-21] MEDS: Ceftriaxone 1 GM/50 ML BAG IV ×2 (11:31→22:19)
--- NOTE | 2023-07-21 11:51 | NURSING ---
[id number] ALBA [phone] ALBA'S PHONE [phone] ALBA
[2023-07-21 12:03] LABS: International Normalized Ratio 1.2; Prothrombin Time (Protime)PT. 15.3 SECONDS (11.7-14.9)
[2023-07-21 12:12] LABS: Lactic Acid 1.8 mmol/L (0.4-1.9)
--- NOTE | 2023-07-21 13:41 | NURSING ---
SURGERY DR ALBA KIDNEY STONE
--- NOTE | 2023-07-21 13:50 | PCM.HP.STD ---
[facility] Date of Service: 07/21/23 Chief Complaint: Obstructing right ureteral calculi stent in the left HPI Narrative KIMBERLEY YOUNG, is a 77 M who presents to the emergency room with a UTI white blood count of 20,000 he had a ureteroscopy and laser procedure on the left side and stent placement in the left on CAT scan he has a stone on the distal right ureter today we plan to remove the stent from the left side if possible will laser the stone in the distal right ureter and place a right stent [facility] Medical History DEENA (acute kidney injury) Arthritis Atherosclerosis of [place] coronary artery of [place] heart without angina pectoris BPH (benign prostatic hyperplasia) Calculus of proximal right ureter Chronic kidney disease (CKD) Dilated aortic root Essential (primary) hypertension History of non-ST elevation myocardial infarction (NSTEMI) (12/2015) Hyperlipidemia Hypothyroidism Mass of anus Obstructive sleep apnea Plantar fasciitis Tubular adenoma of colon (09/26/20) Type 2 diabetes mellitus without complications Home Medications hydroxychloroquine 200 mg tablet 200 mg PO QHS RHEUMATOID ARTHRITIS 05/26/21 [History Last Taken 06/11/23] cholecalciferol (vitamin D3) 50 mcg (2,000 unit) capsule 4,000 unit PO DAILY SUPPLEMENT 08/15/22 [History Last Taken 06/11/23] mecobalamin (vitamin B12) 1,000 mcg chewable tablet 1,000 mcg PO DAILY SUPPLEMENT 08/15/22 [History Last Taken 06/11/23] aspirin 81 mg tablet,delayed release (Adult Aspirin Regimen) 81 mg PO QHS HEART [facility] 06/12/23 [History Last Taken 06/11/23] hydrocodone-acetaminophen 5-325mg 5mg-325mg 1 tab PO Q6H PRN Pain 06/12/23 [History Last Taken Unknown] oxycodone-acetaminophen 5 mg-325 mg tablet 1 tab PO Q6H PRN PAIN 06/12/23 [History Last Taken 06/11/23] tamsulosin 0.4 mg capsule 0.4 mg PO DAILY@1730 #30 caps 06/15/23 [Rx Last Taken Unknown] metoprolol succinate 25 mg tablet,extended release 24 hr 25 mg PO DAILY BLOOD PRESSURE #90 tabs 06/24/23 [Rx Last Taken Unknown] Allergy/AdvReac Type Severity Reaction Status Date / Time rosuvastatin [From Crestor] AdvReac Severe Myalgias Verified 07/21/23 10:22 and joint pain Family History Mother CAD (coronary artery disease) Hx of CABG Father CAD (coronary artery disease) Hx of CABG Brother CAD (coronary artery disease) Hx of CABG Myocardial infarction Diabetes Surgical History History of colonoscopy (2007) History of colonoscopy (09/26/20) History of coronary artery stent placement (12/25/15) History of esophagogastroduodenoscopy (EGD) (2005) History of hemorrhoidectomy History of left heart catheterization (12/2015) History of nasal septoplasty History of ureter stent (12/2019) Social History Smoking Status: Former smoker alcohol intake: current alcohol intake frequency: a few times a week Alcohol type: beer substance use type: does not use caffeine: Yes Type: coffee what type of physical activity do you participate in: walking frequency: daily duration: 30-45 minutes/day seatbelt use: always do you feel safe at home: Yes ROS Constitutional Constitutional: Denies chills, fever(s) or malaise Eyes Eyes: Denies blurry vision or change in vision ENT HEENT: Reports none Cardiovascular Cardiovascular: Denies chest pain or palpitations Respiratory/Chest Respiratory/Chest: Denies cough or shortness of breath with exertion Gastrointestinal Gastrointestinal: Denies abdominal pain, constipation or diarrhea Musculoskeletal Musculoskeletal: Denies back pain, joint stiffness or joint swelling Integumentary Integumentary: Denies dry skin, jaundice, lesions or rash Neurologic Neurologic: Denies confusion, syncope or weakness Psychiatric Psychiatric: Reports none; Denies anxiety or depression Endocrine Endocrinology: Denies excessive sweating, fatigue or flushing Hematologic/Lymphatic Hematologic/Lymphatic: Denies anemia, easy bleeding or easy bruising Vital Signs Vital Signs Vital Signs: 07/21/23 10:03 07/21/23 10:27 07/21/23 11:25 Temperature 98 F 98.2 F Temperature Source Temporal Oral Pulse Rate 128 H 119 H 116 H Respiratory Rate 18 18 20 H Blood Pressure 120/77 111/64 109/61 Blood Pressure Mean 91 79 77 Blood Pressure Source Blood Pressure Position Blood Pressure Location Pulse Ox 99 96 96 Oxygen Delivery Method Room Air Room Air Room Air 07/21/23 12:26 07/21/23 12:47 Temperature 98.6 F Temperature Source Oral Pulse Rate 119 H 116 H Respiratory Rate 35 H 27 H Blood Pressure 106/65 105/61 Blood Pressure Mean 78 75 Blood Pressure Source Monitor Blood Pressure Position Semi-Fowlers Blood Pressure Location Right Arm Pulse Ox 95 95 Oxygen Delivery Method Room Air Room Air Weight Weight: 77.519 kg Body Mass Index (BMI) 25.2 Physical Exam Const alert and oriented x3 General Appearance: cooperative HEENT normocephalic and head/scalp atraumatic Eyes PERRL and EOMs intact bilaterally Neck supple, no JVD and no carotid bruits Resp normal respiratory effort, normal air movement and clear to auscultation bilaterally Cardio regular rate and no murmurs GI normal to inspection, nondistended, normoactive bowel sounds and soft to palpation Extremity normal capillary refill General Extremity: no tenderness to palpation of joints or extremities; Negative for edema Skin no rashes or lesions noted and no wounds General Skin Exam: no breakdown Neuro CN's II-XII intact bilaterally Psych affect normal Appearance: appropriate Results Medical Records Data Attestation: I reviewed the patient's medical records Lab / Micro Data 07/21/23 10:21 07/21/23 10:21 Labs: Laboratory Results - last 24 hr 07/21/23 10:17: Urine Color Yellow, Urine Clarity Cloudy, Urine pH 6.5, Ur Specific [place] 1.015, Urine Protein 100 H, Urine Glucose (UA) Normal, Urine Ketones 5 H, Urine Occult Blood 250 H, Urine Nitrite Positive H, Urine Bilirubin 3 H, Urine Urobilinogen 8 H, Ur Leukocyte Esterase 500 H, Urine RBC > 100 SEEN, Urine WBC 50-100 SEEN, Ur Squamous Epith Cells 0 SEEN, Urine Bacteria 1+, Urine Mucus 0 SEEN 07/21/23 10:21: WBC 28.6 H, RBC 4.63, Hgb 13.4, Hct 42.3, MCV 91.4, MCH 28.9, MCHC 31.7 L, RDW Std Deviation 46.3 H, RDW Coeff of [place] 14.0, Plt Count 210, MPV 9.4, Neut % (Auto) Not Reportable, Absolute Neuts (auto) 26.6 H, Absolute Lymphs (auto) 1.14, Total Counted 100, Neutrophils % (Manual) 87 H, Band Neutrophils % 5, Lymphocytes % (Manual) 4 L, Monocytes % (Manual) 3, Metamyelocytes % 1, Differential Comment SCANNED, Diff Path Review May foll, Platelet Estimate ADEQUATE, RBC Morphology NORM C+C, Sodium 137, Potassium 3.7, Chloride 102, Carbon Dioxide 28.0, Anion Gap 7, BUN 28 H, Creatinine 2.63 H, Estim Creat Clear Calc 23.90, Est GFR (MDRD) Af Amer 31 L, Est GFR (MDRD) Non-Af 25 L, BUN/Creatinine Ratio 10.6, Glucose 157 H, Calcium 8.6 07/21/23 11:20: PT 15.3 H, INR 1.2, Lactic Acid 1.8 Radiology Impression Abdomen/Pelvis CT 07/21/23 10:51 IMPRESSION: 1. Progression of the right ureteral stone without obstructive changes of the right renal collecting system. 2. Right nephrolithiasis. 3. Interval placement of a left double-J ureteral stent catheter. Electronically Signed: Davi Virk MD at 11:32 EST , Assessment & Plan Assessment/Plan (1) Right ureteral calculus: PLAN: Plan to proceed with right ureteroscopy laser lithotripsy of stone and stent placement this is a new stone from the right side (2) Left renal stone: PLAN: Plan to proceed with cystoscopy and removal of left stent he had prior stones treated on the left side and looks like there is no more remaining stones on the left side so we will remove the stent. PLAN: Plan Also appears to have a urinary tract infection we will put him on Rocephin and admit the patient for UTI sepsis
--- NOTE | 2023-07-21 14:47 | DCINST_ITS ---
Discharge Instructions Diet Discharge Diet: No restrictions Activity Discharge Activity: Return to Normal Activity Dressing / Incision Call your doctor if you observe: Fever of 101 or Higher Follow Up Care Please Follow Up With: Joseph Mora MD When: Call [phone] for an appointment Test Results: Test results from this visit will be discussed in further detail at your follow- up appointment, if applicable. Discharge Plan Admission Admit Date/Time: 07/21/23 13:54 Attending Provider: Joseph Mora Primary Care Provider: Raj Chow Discharge Orders/Prescriptions Prescriptions: No Action hydroxychloroquine 200 mg tablet 200 mg PO QHS mecobalamin (vitamin B12) 1,000 mcg tablet,chewable 1,000 mcg PO DAILY cholecalciferol (vitamin D3) 50 mcg (2,000 unit) capsule 4,000 unit PO DAILY hydrocodone-acetaminophen 5-325 mg tablet 1 tab PO Q6H PRN (Reason: Pain) aspirin [Adult Aspirin Regimen] 81 mg tablet,delayed release (DR/EC) 81 mg PO QHS oxycodone-acetaminophen 5-325 mg tablet 1 tab PO Q6H PRN (Reason: PAIN ) tamsulosin 0.4 mg Capsule 0.4 mg PO DAILY@1730 Qty: 30 0RF metoprolol succinate 25 mg tablet extended release 24 hr 25 mg PO DAILY Qty: 90 3RF Referrals / Follow Up: Raj Chow DO [Primary Care Provider] -
--- NOTE | 2023-07-21 14:47 | OP.PCM_ITS ---
Report of Operation Date of Procedure: 07/21/23 Pre-Operative Diagnosis: Right ureteral calculi, status post left stent Post-Operative Diagnosis: Right ureteral calculi Surgery/Procedure Performed:: Cystoscopy left stent removal, right ureteroscopy basket extraction of stone, right retrograde pyelogram, right stent placement Description of Surgical Findings:: Patient was taken back to the operating room and is with duction of anesthesia h e was placed in dorsolithotomy position. The penis and testicles prepped and draped in usual sterile fashion went into the bladder with a 21 [place] rigid cystourethroscope entire length the urethra was normal the prostate was normal I then cannulated and grabbed the existing left stent and pulled it out to the meatus this was removed completely on CAT scan of just there is no remaining fragments in the left side. I then cannulated the right ureteral orifice and over the wire I went in with a semirigid ureteroscope and encountered a stone in the distal right ureter that is causing obstruction this was then basketed and I removed the stone on the right side in the distal ureter, I then performed a retrograde pyelogram the newly the anatomy and then put a wire up on the right side and then placed a stent on the right side left a long string on the stent anticipate to be able to remove the stent in a day or 2. Surgeon: Joseph Mora Type of Anesthesia: General Drains: Right stent Estimated Blood Loss (mL): None Admit VTE Documentation VTE Present on Admission: No VTE Mechan Device Prophylaxis: SCD's VTE Pharm Prophylaxis ordered?: No
[2023-07-21] MEDS: Tamsulosin HCl 0.4 MG Capsule PO (16:48)
[2023-07-21] MEDS: 0.9% Normal Saline (1000mL) 1,000 ML 75 ML IV (16:49)
[2023-07-21] MEDS: Docusate Sodium 100 MG Capsule 200 MG PO (20:44)
[2023-07-21] MEDS: BENZOCAINE/MENTHOL 1 LOZENGE MUCOUS MEM (20:44)
[2023-07-21] MEDS: Acetaminophen 325 MG Tablet PO (20:44)
[2023-07-22] VITALS (7 sets, daily range): BP systolic 89–117; BP diastolic 52–75; PULSE 90–110; RESP 16–18; TEMP 36.9–37.9; O2SAT 94–97; BMI 25.5
[2023-07-22] MEDS: BENZOCAINE/MENTHOL 1 LOZENGE MUCOUS MEM (02:57)
[2023-07-22] MEDS: 0.9% Normal Saline (1000mL) 1,000 ML 75 ML IV (05:44)
[2023-07-22 06:45] LABS: Hematocrit 35.6 % (40-54); Hemoglobin 11.4 g/dL (13.0-16.5); Mean Corpuscular Hgb 29.5 pg (27.0-32.0); Mean Corpuscular Volume 92.2 fL (80-94); Mean Platelet Vol. 10.3 fl (6.2-12.0); Platelet Count 169 K/mm3 (150-450); RBC Distribution Width CV 14.2 % (11.6-14.6); RBC Distribution Width SD 47.8 fl (35.1-43.9); Red Blood Count 3.86 M/mm3 (4.6-6.2); White Blood Count 21.6 K/mm3 (4.4-11.0)
--- NOTE | 2023-07-22 07:02 | PCM.PN.GU ---
Subjective Subjective Status post cystoscopy and right ureteroscopy basket extraction of stone and right stent placement, patient have sepsis and bacteremia prior cultures grew out very small colonies of Pseudomonas and sensitivities were not done. We will continue with Rocephin await results of the blood and urine cultures explained to the patient because of change in status will have to be inpatient anticipate discharge may be Saturday up I plan to take out the stent tomorrow continue with gentle hydration IV antibiotics for sepsis and bacteremia the patient is clinically stable no signs of distress no not in pain he is alert he is talking he is interactive he is got breakfast does not look toxic. White count is down to 21,000 and BMP is pending Objective Data Objective Data Vital Signs: Vital Signs Temp Pulse Resp BP Pulse Ox O2 Del Method 98.4 F 110 H 16 104/71 97 Room Air 07/22/23 02:00 07/22/23 02:00 07/22/23 02:00 07/22/23 02:00 07/22/23 02:00 07/22/23 02:00 Oxygen Delivery Method Room Air Weight: 78 kg Body Mass Index (BMI) 25.4 Intake & Output: Intake and Output for Last 24 Hours 07/21/23 07/21/23 07/22/23 00:59 23:59 23:59 Intake Total 1178.75 / 1178.75 Balance 1178.75 / 1178.75 Lab / Micro Data 07/22/23 05:20 07/21/23 10:21 Labs: Laboratory Results - last 24 hr 07/21/23 10:17: Urine Color Yellow, Urine Clarity Cloudy, Urine pH 6.5, Ur Specific [place] 1.015, Urine Protein 100 H, Urine Glucose (UA) Normal, Urine Ketones 5 H, Urine Occult Blood 250 H, Urine Nitrite Positive H, Urine Bilirubin 3 H, Urine Urobilinogen 8 H, Ur Leukocyte Esterase 500 H, Urine RBC > 100 SEEN, Urine WBC 50-100 SEEN, Ur Squamous Epith Cells 0 SEEN, Urine Bacteria 1+, Urine Mucus 0 SEEN 07/21/23 10:21: WBC 28.6 H, RBC 4.63, Hgb 13.4, Hct 42.3, MCV 91.4, MCH 28.9, MCHC 31.7 L, RDW Std Deviation 46.3 H, RDW Coeff of Denilson 14.0, Plt Count 210, MPV 9.4, Neut % (Auto) Not Reportable, Absolute Neuts (auto) 26.6 H, Absolute Lymphs (auto) 1.14, Total Counted 100, Neutrophils % (Manual) 87 H, Band Neutrophils % 5, Lymphocytes % (Manual) 4 L, Monocytes % (Manual) 3, Metamyelocytes % 1, Differential Comment SCANNED, Diff Path Review January, Platelet Estimate ADEQUATE, RBC Morphology NORM C+C, Sodium 137, Potassium 3.7, Chloride 102, Carbon Dioxide 28.0, Anion Gap 7, BUN 28 H, Creatinine 2.63 H, Estim Creat Clear Calc 23.90, Est GFR (MDRD) Af Amer 31 L, Est GFR (MDRD) Non-Af 25 L, BUN/Creatinine Ratio 10.6, Glucose 157 H, Calcium 8.6 07/21/23 11:20: PT 15.3 H, INR 1.2, Lactic Acid 1.8 07/22/23 05:20: WBC 21.6 H, RBC 3.86 L, Hgb 11.4 L, Hct 35.6 L, MCV 92.2, MCH 29.5, MCHC 32.0, RDW Std Deviation 47.8 H, RDW Coeff of Denilson 14.2, Plt Count 169, MPV 10.3 Micro: Microbiology 07/21/23 11:20 Blood Culture (Wb) - Anticubital Right Blood Culture - Preliminary Radiography Diagnostic Testing: Radiology Impression Abdomen/Pelvis CT 07/21/23 10:51 IMPRESSION: 1. Progression of the right ureteral stone without obstructive changes of the right renal collecting system. 2. Right nephrolithiasis. 3. Interval placement of a left double-J ureteral stent catheter. Electronically Signed: Davi Virk MD at 11:32 EST , Physical Exam Const alert and oriented x3 General Appearance: cooperative HEENT normocephalic, head/scalp atraumatic, EAC's normal and TM's normal bilaterally Eyes PERRL and EOMs intact bilaterally Pupil: sluggish Neck no lymphadenopathy, supple and no JVD General: trachea midline Lymph Lymphatic: no lymphadenopathy noted, lymphedema and lymphadenopathy Resp normal respiratory effort, normal air movement and clear to auscultation bilaterally Cardio regular rate, regular rhythm and peripheral pulses 2+ throughout GI soft to palpation, non-tender and non-distended Extremity normal capillary refill and no clubbing, cyanosis or edema General Extremity: no tenderness to palpation of joints or extremities Skin no rashes or lesions noted General Skin Exam: turgor normal Lesions: no lesions Rashes: no rashes Neuro CN's II-XII intact bilaterally Speech: speech normal Motor Exam: strength 5/5 throughout; Negative for general weakness Psych thought process normal, cooperative and affect normal Appearance: appropriate Assessment & Plan Assessment/Plan (1) Right ureteral calculus: PLAN: Continue IV antibiotics await results of cultures, probably will be okay to remove his stent tomorrow anticipate discharge on Saturday, change status to inpatient
[2023-07-22 07:41] LABS: Anion Gap 6 (5-15); BUN 34 mg/dL (7-18); BUN/Creat Ratio 12.4 RATIO (10-20); Calcium,Total 7.3 mg/dL (8.5-10.1); Chloride 108 mmol/L (98-107); Creatinine, Serum 2.74 mg/dL (0.70-1.30); EST Glomerular Filtration Rate 24 mL/min (>60); Est Glom Filt Rate - Afr Amer 29 mL/min (>60); Estimated Creatinine Clearance 22.19 ml/min; Glucose 124 mg/dL (74-106); Potassium 3.8 mmol/L (3.5-5.1); Sodium Level 137 mmol/L (136-145)
[2023-07-22] MEDS: Docusate Sodium 100 MG Capsule 200 MG PO (08:25)
[2023-07-22] MEDS: Ceftriaxone 1 GM/50 ML BAG IV ×2 (10:04→20:48)
[2023-07-22] MEDS: 0.9% Normal Saline (1000mL) 1,000 ML 125 ML IV ×2 (14:53→20:48)
[2023-07-22] MEDS: Metoprolol(XL)Succ 25 MG Tablet PO (15:29)
[2023-07-22] MEDS: Tamsulosin HCl 0.4 MG Capsule PO (17:23)
[2023-07-23] VITALS (7 sets, daily range): BP systolic 111–131; BP diastolic 69–78; PULSE 80–95; RESP 14–18; TEMP 36.6–37.1; O2SAT 96–98
[2023-07-23] MEDS: Docusate Sodium 100 MG Capsule 200 MG PO (03:50)
[2023-07-23] MEDS: 0.9% Normal Saline (1000mL) 1,000 ML 125 ML IV (03:50)
--- NOTE | 2023-07-23 07:24 | PN.URO_ITS ---
Subjective Subjective 77-year-old male status post removal of stone, on the right and today we will remove the right stent urine culture is coming back with Pseudomonas. Hopefully not will be a very resistant strain, will await sensitivities and then will probably plan to discharge patient home with antibiotics per sensitivities so keep him on 1 more day in the hospital Hep-Lock fluids looks like his sepsis is resolved he is doing well his blood pressure stable heart rate stable. On a regular diet. Today Sukhjinder to remove his stent. Objective Data Objective Data Vital Signs: Vital Signs Temp Pulse Resp BP Pulse Ox O2 Del Method 98.4 F 94 18 124/71 H 98 Room Air 07/23/23 03:40 07/23/23 03:40 07/23/23 03:40 07/23/23 03:40 07/23/23 03:40 07/23/23 03:40 Oxygen Delivery Method Room Air Weight: 78 kg Body Mass Index (BMI) 25.4 Intake & Output: Intake and Output for Last 24 Hours 07/21/23 07/22/23 07/23/23 23:59 23:59 23:59 Intake Total 2901.25 / 2901.25 879.17 / 879.17 Output Total 600 / 600 600 / 600 Balance 2301.25 / 2301.25 279.17 / 279.17 Lab / Micro Data 07/22/23 05:20 07/22/23 05:20 Labs: Laboratory Results - last 24 hr 07/22/23 05:20: Sodium 137, Potassium 3.8, Chloride 108 H, Carbon Dioxide 23.0, Anion Gap 6, BUN 34 H, Creatinine 2.74 H, Estim Creat Clear Calc 22.19, Est GFR (MDRD) Af Amer 29 L, Est GFR (MDRD) Non-Af 24 L, BUN/Creatinine Ratio 12.4, Glucose 124 H, Calcium 7.3 L Micro: Microbiology 07/21/23 10:17 Urine, Clean Catch Urine Culture - Preliminary GNR Poss Pseudomonas sp 07/21/23 11:20 Blood Culture (Wb) - Anticubital Right Blood Culture - Preliminary 07/21/23 11:18 Blood Culture (Wb) - Venous Blood Culture - Preliminary Physical Exam Const alert and oriented x3 General Appearance: cooperative HEENT normocephalic, head/scalp atraumatic, EAC's normal and TM's normal bilaterally Eyes PERRL and EOMs intact bilaterally Pupil: sluggish Neck no lymphadenopathy, supple and no JVD General: trachea midline Lymph Lymphatic: no lymphadenopathy noted, lymphedema and lymphadenopathy Resp normal respiratory effort, normal air movement and clear to auscultation casimiro aterally Cardio regular rate, regular rhythm and peripheral pulses 2+ throughout GI soft to palpation, non-tender and non-distended Extremity normal capillary refill and no clubbing, cyanosis or edema General Extremity: no tenderness to palpation of joints or extremities Skin no rashes or lesions noted General Skin Exam: turgor normal Lesions: no lesions Rashes: no rashes Neuro CN's II-XII intact bilaterally Speech: speech normal Motor Exam: strength 5/5 throughout; Negative for general weakness Psych thought process normal, cooperative and affect normal Appearance: appropriate Assessment & Plan Assessment/Plan (1) Right ureteral calculus:
[2023-07-23] MEDS: Metoprolol(XL)Succ 25 MG Tablet PO (07:51)
[2023-07-23 08:19] LABS: Pathologist Review Reviewed
[2023-07-23] MEDS: Ceftriaxone 1 GM/50 ML BAG IV (10:02)
[2023-07-23] MEDS: Ciprofloxacin 400 MG/200 ML BAG 200 MG IV (10:22)
--- NOTE | 2023-07-23 10:38 | PCM.CONS.GEN ---
Assessment & Plan Assessment/Plan (1) Bacteremia due to Gram-negative bacteria: PLAN: Pseudomonas bacteremia from urinary source s/p recent urologic procedure - taken to OR 07/21/[address] Mora for R stent placement. Ucx and Bcx with pseudomonas. Will change ceftriaxone to cipro for pseudomonal coverage. Plan on po cipro at discharge. Will follow, thank you, d/w nursing and correctional case manager HPI Consult Data Date of Consult: 07/23/23 HPI Narrative Reason for Consultation: bacteremia HPI Narrative: KIMBERLEY YOUNG, is a 77 M who presented with acute onset fever, chills, nausea, mild abd pain, not feeling well. Had R stent placement and ESWL on 06/[address] Huggins. Had another procedure for L stent placement 07/19, developed sx the next day. Admitted on 06/20, started on ceftriaxone, taken to OR 07/21 for L stent removal, R stone extraction, R stent placement. Feeling a little better this AM. Some difficulty urinating. Full ROS performed and neg except as noted above. [facility] Medical History DEENA (acute kidney injury) Arthritis Atherosclerosis of [place] coronary artery of [place] heart without angina pectoris BPH (benign prostatic hyperplasia) Calculus of proximal right ureter Chronic kidney disease (CKD) Dilated aortic root Essential (primary) hypertension History of non-ST elevation myocardial infarction (NSTEMI) (12/2015) Hyperlipidemia Hypothyroidism Mass of anus Obstructive sleep apnea Plantar fasciitis Tubular adenoma of colon (09/26/20) Type 2 diabetes mellitus without complications Home Medications hydroxychloroquine 200 mg tablet 200 mg PO QHS RHEUMATOID ARTHRITIS 05/26/21 [History Last Taken 07/20/23 22:00 200 mg] cholecalciferol (vitamin D3) 50 mcg (2,000 unit) capsule 4,000 unit PO DAILY SUPPLEMENT 08/15/22 [History Last Taken 07/20/23 10:00 4,000 unit] mecobalamin (vitamin B12) 1,000 mcg chewable tablet 1,000 mcg PO DAILY SUPPLEMENT 08/15/22 [History Last Taken 07/20/23 10:00 1,000 mcg] aspirin 81 mg tablet,delayed release (Adult Aspirin Regimen) 81 mg PO QHS [facility] 06/12/23 [History Last Taken 07/20/23 22:00 81 mg] tamsulosin 0.4 mg capsule 0.4 mg PO DAILY@1730 #30 caps 06/15/23 [Rx Last Taken 07/20/23 17:30 0.4 mg] metoprolol succinate 25 mg tablet,extended release 24 hr 25 mg PO DAILY BLOOD PRESSURE #90 tabs 06/24/23 [Rx Last Taken 07/21/23 10:00 25 mg] Allergy/AdvReac Type Severity Reaction Status Date / Time rosuvastatin [From Crestor] AdvReac Severe Myalgias Verified 07/21/23 10:22 and joint pain Family History Mother CAD (coronary artery disease) Hx of CABG Father CAD (coronary artery disease) Hx of CABG Brother CAD (coronary artery disease) Hx of CABG Myocardial infarction Diabetes Surgical History History of colonoscopy (2007) History of colonoscopy (09/26/20) History of coronary artery stent placement (12/25/15) History of esophagogastroduodenoscopy (EGD) (2005) History of hemorrhoidectomy History of left heart catheterization (12/2015) History of nasal septoplasty History of ureter stent (12/2019) Social History Smoking Status: Former smoker alcohol intake: current alcohol intake frequency: a few times a week Alcohol type: beer substance use type: does not use caffeine: Yes Type: coffee what type of physical activity do you participate in: walking frequency: daily duration: 30-45 minutes/day seatbelt use: always do you feel safe at home: Yes Physical Exam Const alert, oriented x3 and no apparent distress General Appearance: cooperative HEENT normocephalic and head/scalp atraumatic Eyes PERRL and EOMs intact bilaterally Neck supple and No nodes Resp normal air movement and clear to auscultation bilaterally Cardio regular rate and regular rhythm GI soft to palpation, non-tender and non-distended GI Narrative: no flank pain Extremity General Extremity: Negative for edema Skin no rashes or lesions noted Neuro CN's II-XII intact bilaterally Lab / Micro Data Attestation: I reviewed the patient's lab results. 07/22/23 05:20 07/22/23 05:20 Labs: Laboratory Results - last 24 hr 07/21/23 10:21: Diff Path Review Reviewed Micro: Microbiology 07/21/23 10:17 Urine, Clean Catch Urine Culture - Final Pseudomonas aeruginosa 07/21/23 11:18 Blood Culture (Wb) - Venous Blood Culture - Preliminary GNR Poss Pseudomonas sp 07/21/23 11:20 Blood Culture (Wb) - Anticubital Right Blood Culture - Preliminary GNR Poss Pseudomonas sp
--- NOTE | 2023-07-23 11:26 | CASEMGMT ---
Social Work - Advanced Directive Validation POAHC and Living Will are scanned into the system, completed in 2020. Mariah is primary POAHC. -WILL Sanchez
--- NOTE | 2023-07-23 15:42 | CASEMGMT ---
NILE JAMISON Assessment: Face to Face with pt for initial transition planning/care coordination assessment. RN YAQUELIN introduced self and role at [facility], pt voices understanding and consents to assessment. Pt is A&O x4 and answers all questions appropriately at this time. Pt sitting up in bed in no distress. Care providers, pharmacy, and demographics verified/updated. Admitting Dx: R ureteral stone PCP:Claudine Specialists:Abby, uro; Abdirahman, cardio; Sunil, rheum; Gumaro, derm Preferred [facility]acy: [facility] Insurance: [employer] Prescription Benefit: yes LNOK: Mariah Arriola, Living Arrangements: Pt lives with in a split level home with 3-4 steps to enter with a rail. Pt reports he is I in ADL's and denies concerns at home. Transportation: Pt drives self and denies concerns with transportation. DME:CPAP, walker- Pt does not use AD HHC/SNF: Pt denies hx of both Pt states no concerns with going home at time of dc. Pt states no further concerns/needs. CM to follow. Advised pt to ask CM if any further question/concerns/needs arise, voices understanding. Pt Goal: Home Plan: Home, spoke with ID who plans on dc'ing pt with po dongb.
[2023-07-23] MEDS: Tamsulosin HCl 0.4 MG Capsule PO (17:02)
[2023-07-23] MEDS: BENZOCAINE/MENTHOL 1 LOZENGE MUCOUS MEM (20:53)
[2023-07-24 03:54] VITALS: BP 132/75; PULSE 95; RESP 18; TEMP 37.1; O2SAT 97
--- NOTE | 2023-07-24 07:45 | PCM.DC.SUM ---
Providers Date of Admission: 07/21/23 Date of Discharge: 07/24/23 Primary Care Physician: Dr. Raj Chow, Consultations 07/23/23 07:30 Consult: Infectious Disease Routine Consulting Provider: Odilon Liu Reason for Consult: pseudomonas sepsis with stone EMERGENT Consult: No MD Notified: Yes Date Notified: 07/23/23 Time Notified: 08:05 Method of Notification: Text Reason For Visit: RIGHT URETERAL STONE Diagnosis Discharge Diagnosis (1) Bacteremia due to Gram-negative bacteria: Status: Acute Code(s): R78.81 - Bacteremia Medications at Discharge Home Medications hydroxychloroquine 200 mg tablet 200 mg PO QHS RHEUMATOID ARTHRITIS 05/26/21 cholecalciferol (vitamin D3) 50 mcg (2,000 unit) capsule 4,000 unit PO DAILY SUPPLEMENT 08/15/22 mecobalamin (vitamin B12) 1,000 mcg chewable tablet 1,000 mcg PO DAILY SUPPLEMENT 08/15/22 aspirin 81 mg tablet,delayed release (Adult Aspirin Regimen) 81 mg PO QHS [facility] 06/12/23 tamsulosin 0.4 mg capsule 0.4 mg PO DAILY@1730 #30 caps 06/15/23 metoprolol succinate 25 mg tablet,extended release 24 hr 25 mg PO DAILY BLOOD PRESSURE #90 tabs 06/24/23 ciprofloxacin HCl 500 mg tablet (Cipro) 500 mg PO BID #14 tabs 07/24/23 finasteride 5 mg tablet (Proscar) 5 mg PO DAILY #90 tabs 07/24/23 tamsulosin 0.4 mg capsule (Flomax) 0.4 mg PO QHS #90 caps 07/24/23 Hospital Course Summary of Care Provided Minutes Spent on Discharge: 35 Hospital Course: Patient was admitted for a distal right ureteral stone he underwent ureteroscopy basket extraction of stone and stent placement he also came in with infection cultures were done he had Pseudomonas pansensitive infection was started on broad-spectrum antibiotics was seen by infectious disease but fortunately it was sensitive Pseudomonas so we will send him home on Cipro for 7 days. Stent was removed while in the hospital. Still have frequency of urination so we will continue with Flomax and add Proscar and I will see him in the office in 2 weeks for checkup. Physical Exam Const alert and oriented x3 General Appearance: cooperative HEENT normocephalic and head/scalp atraumatic Eyes PERRL and EOMs intact bilaterally Neck supple, no JVD and no carotid bruits Resp normal respiratory effort, normal air movement and clear to auscultation bilaterally Cardio regular rate and no murmurs GI normal to inspection, nondistended, normoactive bowel sounds and soft to palpation Extremity normal capillary refill General Extremity: no tenderness to palpation of joints or extremities; Negative for edema Skin no rashes or lesions noted and no wounds General Skin Exam: no breakdown Neuro CN's II-XII intact bilaterally Psych affect normal Appearance: appropriate Medical Records Data Attestation: I reviewed the patient's medical records Weight / BMI Weight Weight: 78 kg Body Mass Index (BMI) 25.4 ABG / Lab / Microbiology Data 07/22/23 05:20 07/22/23 05:20 Laboratory: Laboratory Results - last 24 hr 07/21/23 10:21: Diff Path Review Reviewed Microbiology: Microbiology 07/21/23 10:17 Urine, Clean Catch Urine Culture - Final Pseudomonas aeruginosa 07/21/23 11:18 Blood Culture (Wb) - Venous Blood Culture - Preliminary GNR Poss Pseudomonas sp 07/21/23 11:20 Blood Culture (Wb) - Anticubital Right Blood Culture - Preliminary GNR Poss Pseudomonas sp D/C Instructions Discharge Diet: No restrictions Discharge Activity: Return to Normal Activity May resume sexual activity in: No Restrictions Call your doctor if you observe: Fever of 101 or Higher Please Follow Up With: Joseph Mora MD When: Call [phone] for an appointment Meaningful Use Info Meaningful Use Diagnoses (Choose all that apply): None applicable Discharge Plan Admission Admit Date/Time: 07/22/23 14:28 Primary Reason for Your Visit: Removal of right stone fragment and stent placement Attending Provider: Joseph Mora Primary Care Provider: Raj Chow Consulting Providers: Odilon Liu Discharge Orders/Prescriptions Prescriptions: New ciprofloxacin HCl [Cipro] 500 mg tablet 500 mg PO BID Qty: 14 0RF finasteride [Proscar] 5 mg tablet 5 mg PO DAILY Qty: 90 3RF tamsulosin [Flomax] 0.4 mg capsule 0.4 mg PO QHS Qty: 90 3RF Continued hydroxychloroquine 200 mg tablet 200 mg PO QHS mecobalamin (vitamin B12) 1,000 mcg tablet,chewable 1,000 mcg PO DAILY cholecalciferol (vitamin D3) 50 mcg (2,000 unit) capsule 4,000 unit PO DAILY aspirin [Adult Aspirin Regimen] 81 mg tablet,delayed release (DR/EC) 81 mg PO QHS tamsulosin 0.4 mg Capsule 0.4 mg PO DAILY@1730 Qty: 30 0RF metoprolol succinate 25 mg tablet extended release 24 hr 25 mg PO DAILY Qty: 90 3RF Referrals / Follow Up: Joseph Mora MD [Med Staff - Active Staff] - Raj Chow DO [Primary Care Provider] - Disposition Discharge Orders: Discharge Patient (Routine); Ordered 07/24/23 Ordered By: Dr. Joseph Mora
[2023-07-24 08:40] VITALS: BP 138/84; PULSE 90; RESP 16; TEMP 36.6; O2SAT 97
[2023-07-24 08:44] VITALS: BP 138/84; PULSE 90
[2023-07-24] MEDS: Metoprolol(XL)Succ 25 MG Tablet PO (08:44)
[2023-07-24] MEDS: Docusate Sodium 100 MG Capsule 200 MG PO (08:44)
[2023-07-24] MEDS: 0.9% Saline Lock 10 ML Syringe IV (08:54)
[2023-07-24] MEDS: Ciprofloxacin 400 MG/200 ML BAG 200 MG IV (08:54)
== END 2023-07-24 10:20 | disposition home or self-care (01) | DRG 854 ==
LOC: ED 13:14 → SDC 13:33 → ED 14:02 → MS3 17:45
PROVIDERS: Admitting Provider Urology; Emergency Provider Student in an Organized Health Care Education/Training Program; PCP Family Medicine; Visit Provider Urology
PROC: (CPT 50575; principal; 2023-07-21 13:45)
DX: A41.52 Sepsis due to Pseudomonas (principal); N20.2 Calculus of kidney with calculus of ureter; N39.0 Urinary tract infection, site not specified; I10 Essential (primary) hypertension; I25.10 Atherosclerotic heart disease of native coronary artery without angina pectoris; I25.2 Old myocardial infarction; Z95.5 Presence of coronary angioplasty implant and graft; Z79.82 Long term (current) use of aspirin; Z79.899 Other long term (current) drug therapy; Z87.891 Personal history of nicotine dependence
CPT/HCPCS: 36415; 74176; 76000; 80048; 81001; 82360; 83605; 85025; 85027; 85610; 87040; 87077; 87086; 87088; 87184; 87186; 99284; J7030; J7040; A4216; C1769; C2617; J0744; J2405

== ENCOUNTER 2023-08-01 11:59 | Outpatient (RCR) | payer MEDICARE, OTHER, SELFPAY | END 2023-08-15 23:59 | LOC: NS 11:59 | PROVIDERS: PCP Family Medicine; Visit Provider Family Medicine | DX: I12.9 Hypertensive chronic kidney disease with stage 1 through stage 4 chronic kidney disease, or unspecified chronic kidney disease (principal); N18.32 Chronic kidney disease, stage 3b; Z71.3 Dietary counseling and surveillance | CPT/HCPCS: 97802 ==

== ENCOUNTER → 2023-08-12 | Outpatient (CLI) | payer MEDICARE, OTHER, SELFPAY ==
[2023-08-12 12:49] LABS: Absolute Lymphocyte Count 0.93 X10^3/uL (0.83-4.51); Absolute Neutrophil Count 3.5 X10^3/uL (2.0-7.7); Basophil# 0.03 X10^3/uL; Basophil% 0.6 % (0-1); Eosinophil# 0.07 X10^3/uL; Eosinophils% 1.4 % (0-5); Hematocrit 37.9 % (40-54); Hemoglobin 11.7 g/dL (13.0-16.5); Lymphocyte # 0.93 X10^3/ul (0.83-4.51); Lymphocyte % 18.8 % (19-41); Mean Corp Hgb Conc 30.9 g/dL (32-36); Mean Corpuscular Hgb 28.6 pg (27.0-32.0); Mean Corpuscular Volume 92.7 fL (80-94); Mean Platelet Vol. 10.1 fl (6.2-12.0); Monocyte# 0.43 X10^3/uL; Monocyte% 8.7 % (0-10); NRBC Flagged by Analyzer 0 % (0-5); Neutrophil # 3.46 X10^3/uL (2.7-7.7); Neutrophil % 69.9 % (47-70); Platelet Count 207 K/mm3 (150-450); RBC Distribution Width CV 14.3 % (11.6-14.6); RBC Distribution Width SD 48.5 fl (35.1-43.9); Red Blood Count 4.09 M/mm3 (4.6-6.2)
[2023-08-12 13:09] LABS: ALB/GLOB Ratio 0.8 RATIO (0.9-2.4); AST(SGOT) 17 U/L (15-37); Alanine Aminotransfer ALT/SGPT 19 U/L (16-61); Albumin, Serum 3.3 g/dL (3.2-5.0); Alkaline Phosphatase 83 U/L (45-117); Anion Gap 5 (5-15); BUN 34 mg/dL (7-18); BUN/Creat Ratio 12.7 RATIO (10-20); Calcium,Total 8.6 mg/dL (8.5-10.1); Chloride 106 mmol/L (98-107); Creatinine, Serum 2.68 mg/dL (0.70-1.30); EST Glomerular Filtration Rate 25 mL/min (>60); Est Glom Filt Rate - Afr Amer 30 mL/min (>60); Glucose 108 mg/dL (74-106); Potassium 4.8 mmol/L (3.5-5.1); Protein, Total 7.3 g/dL (6.4-8.2); Sodium Level 140 mmol/L (136-145)
== END | disposition home or self-care (01) ==
LOC: LAB 12:02
PROVIDERS: PCP Family Medicine; Referring Provider Internal Medicine Rheumatology; Visit Provider Internal Medicine Rheumatology
DX: M06.4 Inflammatory polyarthropathy (principal); I10 Essential (primary) hypertension; Z79.899 Other long term (current) drug therapy
CPT/HCPCS: 36415; 80053; 85025

== ENCOUNTER → 2023-09-02 | Outpatient (CLI) | payer MEDICARE, OTHER, SELFPAY ==
[2023-09-14 15:27] LABS: Source Not Provided
== END | disposition home or self-care (01) ==
LOC: LABSPEC 16:10
PROVIDERS: PCP Family Medicine; Referring Provider Urology; Visit Provider Urology
DX: N20.1 Calculus of ureter (principal)
CPT/HCPCS: 82360

== ENCOUNTER → 2023-09-13 | Outpatient (CLI) | payer MEDICARE, OTHER, SELFPAY ==
--- OUTSIDE RECORDS SUMMARY | 2023-09-13 06:38 | XMS RPT_ITS | CCD ---
Author Name Unknown Address [address] [place] [address] [address] [place] [address] Organization [facility] Care Team Providers Care Rn Surgery Name Role Phone Delvis Chow DO Primary Care Provider KARLOS KAPLAN Attending Unavailable DELVIS CHOW Primary Care Unavailable SHERRY GUADARRAMA Attending Unavailable KARLOS KAPLAN Referring Unavailable DELVIS CHOW Primary Care Unavailable MAGGIE JORDAN Attending Unavail able SHERRY GUADARRAMA Referring Unavailable DELVIS CHOW Primary Care Unavailable Delvis Chow DO Primary Care Provider Medications Current Medications Medication Drug Class(es) Dates Sig (Normalized) Sig (Original) NIFEdipine (1 source) Dihydropyridine Calcium Channel Danielle Start: 06-20-2022 End: 07-20-2022 NIFEdipine topical ointment 0.2% (CPD) Indications: Anal fissure by RECTAL route twice daily. Apply pea sized amount to anal opening twice a day. 30 g 1 06/20/2022 07/20/2022 Active Completed/Discontinued Medications Medication Drug Class(es) Dates Sig (Normalized) Sig (Original) Ascorbic Acid (3 sources) Vitamin C ascorbic acid (V ITAMIN C ORAL) Take by mouth once daily. 0 Active Problems Problem Classification Problem Date Documented Da te Episodic/Chronic Anal and rectal conditions (5 sources) Anorectal pain; Translations: [Other specified diseases of anus and rectum] Onset: 07-31-2022 Episodic Results Test Name Value Interpretation Reference Range Facil ity Vital Signs Date Time Vital Sign Value Performing Clinician Shanellei charly 07-31-2022 13:15-0500 Diastolic blood pressure 73 mm[Hg] Sherry Guadarrama MD Work Phone: [facility] 07-31-2022 13:15-0500 Heart rate 96 /min Sherry Guadarrama MD Work Phone: [facility] 07-31-2022 13:15-0500 Respiratory rate 16 /min Sherry uGadarrama MD Work Phone: [facility] 07-31-2022 13:15-0500 SaO2% (BldA) [Mass fraction] 97 % Sherry Guadarrama MD Work Phone: [facility] 07-31-2022 13:15-0500 Systolic blood pressure 123 mm[Hg] Sherry Guadarrama MD Work Phone: [facility] 07-31-2022 12:55-0500 Body temperature 97.5 [degF] Sherry Guadarrama MD Work Phone: [facility] 06-20-2022 09:59-0400 Body height 177.8 cm Sherry Guadarrama MD Work Phone: [facility] 06-20-2022 09:59-0400 Body temperature 97.81 [degF] Sherry Guadarrama MD Work Phone: [facility] 06-20-2022 09:59-0400 Body weight 83.01 kg Sherry Guadarrama MD Work Phone: [facility] 06-20-2022 09:59-0400 Diastolic blood pressure 74 mm[Hg] Sherry Guadarrama MD Work Phone: [facility] 06-20-2022 09:59-0400 Heart rate 71 /min Sherry Guadarrama MD Work Phone: [facility] 06-20-2022 09:59-0400 SaO2% (BldA) [Mass fraction] 95 % Sherry Guadarrama MD Work Phone: [facility] 06-20-2022 09:59-0400 Systolic blood pressure 137 mm[Hg] Sherry Guadarrama MD Work Phone: [facility] 06-14-2022 15:07-0400 Body height 177.8 cm Karlos Kaplan MD Work Phone: [facility] 06-14-2022 15:07-0400 Body temperature 97.7 [degF] Karlos Kaplan MD Work Phone: [facility] 06-14-2022 15:07-0400 Body weight 83.01 kg Karlos Kaplan MD Work Phone: [facility] 06-14-2022 15:07-0400 Diastolic blood pressure 84 mm[Hg] Karlos Kaplan MD Work Phone: [facility] 06-14-2022 15:07-0400 Heart rate 89 /min Karlos Kaplan MD Work Phone: [facility] 06-14-2022 15:07-0400 SaO2% (BldA) [Mass fraction] 96 % Karlos Kaplan MD Work Phone: [facility] 06-14-2022 15:07-0400 Systolic blood pressure 126 mm[Hg] Karlos Kaplan MD Work Phone: [facility] Encounters Encounter Date Encounter Type Care Provider Facility Start: 07-31-2022 ambulatory MAGGIE A LOVI CH SAPOLA Facility:[facility] Start: 07-31-2022 End: 07-31-2022 Subsequent hospital visit by physician Sherry Guadarrama MD Work Phone: Procedures Procedures Date Procedure Procedure Detail Performing Clinician Start: 07-31-2022 Level iv surg pathol ogy gross&microscopic exam Sherry Guadarrama MD Work Phone: Start: 07-31-2022 Sigmoidoscopy flx dx w/collj spec br/wa if pfrmd Sherry Guadarrama MD Work Phone: Plan of Treatment Date Care Activity Detail Author Start: 05-17-2023 Covid-19 Vaccine ( season) Covid-19 Vaccine () [facility] Start: 05-17-2023 Influenza vaccination Influenza Vaccine (#1) [facility] Start: 09-16-2022 Advance Directive Discussion Advance Directive Discussion [facility] Start: 09-16-2022 Depression Assessment Depression Assessment [facility] Start: 09-02-2022 Shingrix Vaccine (2 of 2) Shingrix Vaccine (2 of 2) [facility] Start: 05-17-2022 Influenza vaccination INFLUENZA (#1) [facility] Start: 03-28-2022 COVID-19 VACCINE (5 - Booster for Moderna series) COVID-19 VACCINE (5 - Booster for Moderna series) [facility] Start: 09-16-2021 ADVANCE DIRECTIVE DISCUSSION ADVANCE DIRECTIVE DISCUSSION [facility] Start: 09-16-2021 DEPRESSION ASSESSMENT DEPRESSION ASSESSMENT [facility] Start: 2006 RSV Vaccine (1 - 1-dose 60+ series) RSV Vaccine (1 - 1-dose 60+ series) [facility] Start: 1991 COLOGUARD (FIT-DNA) COLOGUARD (FIT-DNA) [facility] Start: 1991 Colonoscopy COLONOSCOPY [facility] Start: 1991 COLORECTAL CANCER SCREENING COLORECTAL CANCER SCREENING [facility] Start: [address] COLONOGRAPHY [facility] Start: 1991 DIABETES SCREEN DIABETES SCREEN [facility] Start: 1991 Diabetes Screening Diabetes Screening [facility] Start: 1991 FECAL OCCULT BLOOD FECAL OCCULT BLOOD [facility] Start: 1991 SIGMOIDOSCOPY SIGMOIDOSCOPY [facility] Start: 1981 LIPID SCREEN LIPID SCREEN [facility] Start: 1965 SHINGRIX VACCINE (1 of 2) SHINGRIX VACCINE (1 of 2) [facility] Start: 1965 Urine microalbumin profile [facility] Start: 1964 HEPATITIS C SCREENING HEPATITIS C SCREENING [facility] Start: 1952 PNEUMOCOCCAL: 65+ (1 - PCV) PNEUMOCOCCAL: 65+ (1 - PCV) [facility] End: 06-20-2023 SIGMOIDOSCOPY SIGMOIDOSCOPY Endoscopy Routine Anal fissure 1 Occurrences starting 06/20/2022 until 06/20/2023 [facility] Work Phone: Immunizations Immunization Date Immunization Notes Care Provider Fa cilistacy 07-08-2022 influenza virus vacc ine, unspecified formulation Shrery Guadarrama MD Work Phone: [facility] Payers Date Payer Category Payer [employer] ( and others) [id number] 2021 Unknown FOR LIFE [id number] 2021-Present [phone] [address] [place] [address] Indemnity [id number] 2011 Medicare MEDICARE MEDICAR E A AND B [id number] 2011-Present [phone] [address] [address] [place] [address] Medicare [id number] 2011 Medicare [id number] Social History Date Type Detail Facility Start: 06-14-2022 End: 06-20-2022 Tobacco smoking status NHIS Ex-smoker [facility] End: 09-16-1981 History of tobacco use Current smoker [facility] End: 09-16-1981 History of tobacco use Cigarette Smoker [facility] Start: 06-14-2022 End: 06-20-2022 Tobacco use and exposure Smokeless tobacco non-user [facility] Start: 06-14-2022 End: 06-20-2022 Alcohol intake Current drinker of alcohol (finding) [facility] Start: 06-14-2022 History SDOH Alcohol Comment social [facility] Start: 1945 Sex Assigned At Not on file C [facility] Start: 06-04-2022 End: 07-31-2022 Exposure to SARS-CoV-2 (event) Not sure [facility] Start: 06-20-2022 Cigarettes smoked cu rrent (pack per day) - Reported 0.5 [facility] Start: 06-20-2022 History SDOH Alcohol Comment 1 glass of wine weekly if that [facility] Start: 06-20-2022 Tobacco use panel [facility] Clinical Notes 06-14-2022 to 08-01-2022 My Hughes MD - 07/31/2022 11:30 AM ESTAddendum Note - Nicole Salas RN - 06/20/2022 10:40 AM Ernesto Benavides MA - 06/20/2022 9:58 AM EDTSherry Guadarrama MD - 06/20/2022 9:20 AM EDT Note Date & Type Note Facility 08-01-2022 Note A. These findings ma y be compatible with prior procedure site changes. However, clinical and endoscopic correlation is necessary. [facility] 07-31-2022 Note A. These findings ma y be compatible with prior procedure site changes. However, clinical and endoscopic correlation is necessary. [facility] Diagnosis [facility]- [facility] Diagnosis Anal fissure documented in this encounter [facility] for referral (narrative)* Outpatient Procedure (Routine) - Authorized Specialty Diagnoses / Procedures Referred By Contac t Referred To Contact [facility] [place] Diagnoses Anal fissure Procedures SIGMOIDOSCOPY SIGMOIDOSCOPY FLX DX W/COLLJ SPEC [place] [id number] [place] [phone] [place] [id number] Referral ID Status Reason Start Date Expiration Date Visits Requested Visits Authorized [id number] Authorized Auto-Generat ed Referral 06/20/2022 06/20/2023 [address] [facility] for visit Narrative* Outpatient Procedure (Routine) - Closed Specialty Diagnoses / Procedures Referred By Contac t Referred To Contact [facility] [place] Diagnoses Anal fissure Procedures SIGMOIDOSCOPY SIGMOIDOSCOPY FLX DX W/COLLJ SPEC BR/[place] [address] [place] [phone] [place] [id number] Referral ID Status Reason Start Date Expiration Date V isits Requested Visits Authorized [id number] Closed Auto-Generate d Referral 06/20/2022 06/20/2023 1 1 [facility] Summary Purpose Family History No Family History Records FoundNo Family History Records Found Advance Directives No Advanced Directives Records FoundNo Advanced Directives Records Found Additional Source Comments Source Comments (unrecognize d section and content) In the event this informatio n is protected by the Federal Confidentiality of Alcohol and Drug Abuse Patient Records regulations: The Federal rules restrict any use of the information to criminally investigate or prosecute any alcohol or drug abuse patient.[facility] the event this information is protected by the Federal Confidentiality of Alcohol and Drug Abuse Patient Records regulations: The Federal rules restrict any use of the information to criminally investigate or prosecute any alcohol or drug abuse patient.[facility] the event this information is protected by the Federal Confidentiality of Alcohol and Drug Abuse Patient Records regulations: The Federal rules restrict any use of the information to criminally investigate or prosecute any alcohol or drug abuse patient.[facility] Reason for Visit (unrecogniz ed section and content) Reason Comments New Patient [facility] Teams (unrecognized sec tion and content) Rn Surgery Relationship Specialty Start Date End Date Delvis Chow DO [address] [place], [place] [id number] PCP - General Family Medicine 06/07/22 Rn Surgery Relationship Specialty Start Date End Date Delvis Chow DO [address] [place], [place] [phone] PCP - General Family Medicine 06/07/22 (unrecognized sect ion and content) No Status Records FoundNo Status Records Found INFORMATION SOURCE (unrecogn ized section and content) DATE CREATED AUTHOR AUTHOR'S JOSÉ ANTONIO BELLALIBERTY 08/03/2022 [facility] FOR RECORDS PERTAINING TO PATIENTS WHO ARE OR HAVE BEEN ENROLLED IN A CHEMICAL DEPENDENCY/SUBSTANCEABUSE PROGRAM, SOME INFORMATION MAY BE OMITTED. This clinical summary was aggregated from multiple sources. Caution should be exercised in using it in the provision of clinical care. This summary normalizes information from multiple sources, and as a consequence, information in this document may materially change the coding, format and clinical context of patient data. In addition, data may be omitted in some cases. CLINICAL DECISIONS SHOULD BE BASED ON THE PRIMARY CLINICAL RECORDS. [employer] provides no warranty or guarantee of the accuracy or completeness of information in this document.
[2023-09-13 07:55] LABS: Absolute Lymphocyte Count 1.12 X10^3/uL (0.83-4.51); Absolute Neutrophil Count 2.6 X10^3/uL (2.0-7.7); Basophil# 0.04 X10^3/uL; Basophil% 0.9 % (0-1); Eosinophil# 0.18 X10^3/uL; Eosinophils% 4.1 % (0-5); Hematocrit 40.7 % (40-54); Hemoglobin 12.7 g/dL (13.0-16.5); Lymphocyte # 1.12 X10^3/ul (0.83-4.51); Lymphocyte % 25.6 % (19-41); Mean Corp Hgb Conc 31.2 g/dL (32-36); Mean Corpuscular Hgb 29.2 pg (27.0-32.0); Mean Corpuscular Volume 93.6 fL (80-94); Mean Platelet Vol. 10.3 fl (6.2-12.0); Monocyte% 9.1 % (0-10); NRBC Flagged by Analyzer 0 % (0-5); Neutrophil # 2.61 X10^3/uL (2.7-7.7); Neutrophil % 59.6 % (47-70); Platelet Count 185 K/mm3 (150-450); RBC Distribution Width CV 15.6 % (11.6-14.6); RBC Distribution Width SD 54.4 fl (35.1-43.9); Red Blood Count 4.35 M/mm3 (4.6-6.2); White Blood Count 4.4 K/mm3 (4.4-11.0)
[2023-09-13 08:16] LABS: PTHIN 110.6 pg/mL (18.4-80.1)
[2023-09-13 08:32] LABS: ALB/GLOB Ratio 0.9 RATIO (0.9-2.4); AST(SGOT) 11 U/L (15-37); Alanine Aminotransfer ALT/SGPT 17 U/L (16-61); Albumin, Serum 3.3 g/dL (3.2-5.0); Alkaline Phosphatase 90 U/L (45-117); Anion Gap 4 (5-15); BUN 33 mg/dL (7-18); BUN/Creat Ratio 12.9 RATIO (10-20); Bilirubin, Direct 0.12 mg/dL (0.00-0.30); Calcium,Total 8.7 mg/dL (8.5-10.1); Chloride 112 mmol/L (98-107); Cholesterol 213 mg/dL (200); Creatinine, Serum 2.55 mg/dL (0.70-1.30); EST Glomerular Filtration Rate 26 mL/min (>60); Est Glom Filt Rate - Afr Amer 32 mL/min (>60); Globulin 3.8 g/dL (2.2-4.2); Glucose 115 mg/dL (74-106); High Density Lipoprotein 76 mg/dL; Phosphorus 3.4 mg/dL (2.5-4.9); Potassium 4.2 mmol/L (3.5-5.1); Protein, Total 7.1 g/dL (6.4-8.2); Sodium Level 143 mmol/L (136-145); Triglycerides 44 mg/dL; Very Low Density Lipoprotein 9 mg/dL (5-40)
[2023-09-13 08:57] LABS: Hemoglobin A1c 5.6 % (3.8-5.6)
[2023-09-13 10:13] LABS: Microalbumin,Random Urine 83.6 mg/L (NO RANGE EST.); Microalbumin:Creatinine Ratio 92.7 mg/g CRE (<30 mg/g CRE)
== END | disposition home or self-care (01) ==
LOC: LAB 06:36
PROVIDERS: Internal Medicine Cardiovascular Disease; PCP Family Medicine; Referring Provider Family Medicine; Visit Provider Family Medicine
DX: E11.22 Type 2 diabetes mellitus with diabetic chronic kidney disease (principal); N18.32 Chronic kidney disease, stage 3b; I25.10 Atherosclerotic heart disease of native coronary artery without angina pectoris; I12.9 Hypertensive chronic kidney disease with stage 1 through stage 4 chronic kidney disease, or unspecified chronic kidney disease
CPT/HCPCS: 36415; 80053; 80061; 82043; 82248; 82570; 83036; 83970; 84100; 85025

== ENCOUNTER → 2023-10-08 | Outpatient (CLI) | payer MEDICARE, OTHER, SELFPAY ==
--- OUTSIDE RECORDS SUMMARY | 2023-10-08 06:48 | XMS RPT_ITS | CCD ---
Author Name Unknown Address [address] [place] [address] [address] [place] [address] Organization [facility] Care Team Providers Care Bank Secrecy Act Officer Name Role Phone Delvis Chow DO Primary [...] 73 mm[Hg] Sherry Guadarrama MD Work Phone: [facility] 07-31-2022 13:15-0500 Heart rate 96 /min Sherry Guadarrama MD Work Phone: [facility] 07-31-2022 13:15-0500 Respiratory rate 16 /min Sherry Guadarrama MD Work Phone: [facility] 07-31-2022 13:15-0500 SaO2% (BldA) [Mass fraction] 97 % Sherry Guadarrama MD Work Phone: [facility] 07-31-2022 13:15-0500 Systolic blood pressure 123 mm[Hg] Sherry Guadarrama MD Work Phone: [facility] 07-31-2022 12:55-0500 Body temperature 97.5 [degF] Sherry Guadarrama MD Work Phone: [facility] 06-20-2022 09:59-0400 Body height 177.8 cm Sherry Guadarrama MD Work Phone: [facility] 06-20-2022 09:59-0400 Body temperature 97.81 [degF] Sherry Guadarrama MD Work Phone: [facility] 06-20-2022 09:59-0400 Body weight 83.01 kg Sherry Guadarrama MD Work Phone: [facility] 06-20-2022 09:59-0400 Diastolic blood pressure 74 mm[Hg] Sherry Guadarrama MD Work Phone: [facility] 06-20-2022 09:59-0400 Heart rate 71 /min Sherry Guadarrama MD Work Phone: [facility] 06-20-2022 09:59-0400 SaO2% (BldA) [Mass fraction] 95 % Sherry Guadarrama MD Work Phone: [facility] 06-20-2022 09:59-0400 Systolic blood pressure 137 mm[Hg] Sherry Guadarrama MD Work Phone: [facility] 06-14-2022 15:07-0400 Body height 177.8 cm Karlos Kaplan MD Work Phone: [facility] 06-14-2022 15:07-0400 Body temperature 97.7 [degF] Karlos Kaplan MD Work Phone: [facility] 06-14-2022 15:07-0400 Body weight 83.01 kg Karlos Kaplan MD Work Phone: [facility] 06-14-2022 15:07-0400 Diastolic blood pressure 84 mm[Hg] Karlos Kaplan MD Work Phone: [facility] 06-14-2022 15:07-0400 Heart rate 89 /min Karlos Kaplan MD Work Phone: [facility] 06-14-2022 15:07-0400 SaO2% (BldA) [Mass fraction] 96 % Karlos Kaplan MD Work Phone: [facility] 06-14-2022 15:07-0400 Systolic blood pressure 126 mm[Hg] Karlos Kaplan MD Work Phone: [facility] Encounters Encounter Date Encounter Type Care Provider Facility Start: 07-31-2022 ambulatory MAGGIE A LOVI CH SAPOLA Facility:[facility] Start: 07-31-2022 End: 07-31-2022 Subsequent [...] Covid-19 Vaccine ( season) Covid-19 Vaccine () [facility] Start: 05-17-2023 Influenza vaccination Influenza Vaccine (#1) [facility] Start: 09-16-2022 Advance Directive Discussion Advance Directive Discussion [facility] Start: 09-16-2022 Depression Assessment Depression Assessment [facility] Start: 09-02-2022 Shingrix Vaccine (2 of 2) Shingrix Vaccine (2 of 2) [facility] Start: 05-17-2022 Influenza vaccination INFLUENZA (#1) [facility] Start: 03-28-2022 COVID-19 VACCINE (5 - Booster for Moderna series) COVID-19 VACCINE (5 - Booster for Moderna series) [facility] Start: 09-16-2021 ADVANCE DIRECTIVE DISCUSSION ADVANCE DIRECTIVE DISCUSSION [facility] Start: 09-16-2021 DEPRESSION ASSESSMENT DEPRESSION ASSESSMENT [facility] Start: 2006 RSV Vaccine (1 - 1-dose 60+ series) RSV Vaccine (1 - 1-dose 60+ series) [facility] Start: 1991 COLOGUARD (FIT-DNA) COLOGUARD (FIT-DNA) [facility] Start: 1991 Colonoscopy COLONOSCOPY [facility] Start: 1991 COLORECTAL CANCER SCREENING COLORECTAL CANCER SCREENING [facility] Start: [address] COLONOGRAPHY [facility] Start: 1991 DIABETES SCREEN DIABETES SCREEN [facility] Start: 1991 Diabetes Screening Diabetes Screening [facility] Start: 1991 FECAL OCCULT BLOOD FECAL OCCULT BLOOD [facility] Start: 1991 SIGMOIDOSCOPY SIGMOIDOSCOPY [facility] Start: 1981 LIPID SCREEN LIPID SCREEN [facility] Start: 1965 SHINGRIX VACCINE (1 of 2) SHINGRIX VACCINE (1 of 2) [facility] Start: 1965 Urine microalbumin profile [facility] Start: 1964 HEPATITIS C SCREENING HEPATITIS C SCREENING [facility] Start: 1952 PNEUMOCOCCAL: 65+ (1 - PCV) PNEUMOCOCCAL: 65+ (1 - PCV) [facility] End: 06-20-2023 SIGMOIDOSCOPY SIGMOIDOSCOPY Endoscopy Routine Anal fissure 1 Occurrences starting 06/20/2022 until 06/20/2023 [facility] Work Phone: Immunizations Immunization Date Immunization Notes Care Provider Fa cilistacy 07-08-2022 influenza virus vacc ine, unspecified formulation Sherry Guadarrama MD Work Phone: [facility] Payers Date Payer Category Payer [employer] ( and others) [id number] 2021 Unknown FOR LIFE [id number] 2021-Present [phone] [address] [place] [address] Indemnity [id number] 2011 Medicare MEDICARE MEDICAR E A AND B [id number] 2011-Present [phone] [address] [address] [place] [address] Medicare [id number] 2011 Medicare [id number] Social History Date Type Detail Facility Start: 06-14-2022 End: 06-20-2022 Tobacco smoking status NHIS Ex-smoker [facility] End: 09-16-1981 History of tobacco use Current smoker [facility] End: 09-16-1981 History of tobacco use Cigarette Smoker [facility] Start: 06-14-2022 End: 06-20-2022 Tobacco use and exposure Smokeless tobacco non-user [facility] Start: 06-14-2022 End: 06-20-2022 Alcohol intake Current drinker of alcohol (finding) [facility] Start: 06-14-2022 History SDOH Alcohol Comment social [facility] Start: 1945 Sex Assigned At Not on file C [facility] Start: 06-04-2022 End: 07-31-2022 Exposure to SARS-CoV-2 (event) Not sure [facility] Start: 06-20-2022 Cigarettes smoked cu rrent (pack per day) - Reported 0.5 [facility] Start: 06-20-2022 History SDOH Alcohol Comment 1 glass of wine weekly if that [facility] Start: 06-20-2022 Tobacco use panel [facility] Clinical Notes 06-14-2022 to 08-01-2022 [...] However, clinical and endoscopic correlation is necessary. [facility] 07-31-2022 Note A. These findings ma y be compatible with prior procedure site changes. However, clinical and endoscopic correlation is necessary. [facility] Diagnosis Anal fissure- [facility] Diagnosis Anal fissure documented in this encounter [facility] for referral (narrative)* Outpatient Procedure (Routine) - Authorized Specialty Diagnoses / Procedures Referred By Contac t Referred To Contact [facility] [place] Diagnoses Anal fissure Procedures SIGMOIDOSCOPY SIGMOIDOSCOPY FLX DX W/COLLJ SPEC BR/[place] [address] [place] [phone] [place] [id number] Referral ID Status Reason Start Date Expiration Date Visits Requested Visits Authorized [id number] Authorized Auto-Generat ed Referral 06/20/2022 06/20/2023 1 1 [facility] for visit Narrative* Outpatient Procedure (Routine) - Closed Specialty Diagnoses / Procedures Referred By Contac t Referred To Contact [facility] DISEASE [place] Diagnoses Anal fissure Procedures SIGMOIDOSCOPY SIGMOIDOSCOPY FLX DX W/COLLJ SPEC BR/[place] [address] [place] [phone] [place] [id number] Referral ID Status Reason Start Date Expiration Date V isits Requested Visits Authorized [id number] Closed Auto-Generate d Referral 06/20/2022 06/20/2023 1 1 [facility] Summary Purpose Family History No Family [...] or prosecute any alcohol or drug abuse patient.[facility] the event this information is protected by the Federal Confidentiality of Alcohol and Drug Abuse Patient Records regulations: The Federal rules restrict any use of the information to criminally investigate or prosecute any alcohol or drug abuse patient.[facility] the event this information is protected by the Federal Confidentiality of Alcohol and Drug Abuse Patient Records regulations: The Federal rules restrict any use of the information to criminally investigate or prosecute any alcohol or drug abuse patient.[facility] Reason for Visit (unrecogniz ed section and content) Reason Comments New Patient [facility] Teams (unrecognized sec tion and content) Bank Secrecy Act Officer Relationship Specialty Start Date End Date Delvis Chow DO [address] [place], [place] [phone] PCP - General Family Medicine 06/07/22 Bank Secrecy Act Officer Relationship Specialty Start Date End Date Delvis Chow DO [address] [place], [place] [phone] PCP - General Family Medicine 06/07/22 (unrecognized sect ion and content) No Status Records FoundNo Status Records Found INFORMATION SOURCE (unrecogn ized section and content) DATE CREATED AUTHOR AUTHOR'S JOSÉ ANTONIO BELLALIBERTY 08/03/2022 [facility] FOR RECORDS PERTAINING TO PATIENTS [...] BE BASED ON THE PRIMARY CLINICAL RECORDS. [employer] provides no warranty or guarantee of the accuracy or completeness of information in this document.
--- NOTE | 2023-10-08 17:21 | STRESSREP_ITS ---
Stress Test Report Exercise myocardial perfusion stress test. 78-year-old man with a history of coronary artery disease Stress protocol: Resting EKG demonstrates normal sinus rhythm with a rate of 74 bpm resting blood pressure is 108/64 mmHg. The patient exercised according to the regular Rob protocol for a total duration of 6 minutes and 45 seconds attaining a maximum heart rate of 136 bpm which was 95% of maximum predicted heart rate; the maximum workload was 9.3 metabolic equivalents. At rest there were no ST or T wave changes noted to suggest ischemia and at peak exercise upsloping ST changes only were noted which did not meet the criteria for ischemia. No clinical angina was noted the test was terminated due to the target heart rate being ac hieved/fatigue. The peak blood pressure was 146/76 mmHg. Rate-pressure product was 17,000. Myocardial perfusion protocol. 11.4 mCi of technetium 99m sestamibi was injected at rest. The patient exe rcised according to regular Rob protocol for total duration of 6 minutes 45 seconds and at peak exercise 35 mCi of technetium 99m sestamibi was injected stress images were obtained stress and rest images were reconstructed in comparing the short axis vertical long and horizontal long axis. Gated images were also obtained. Perfusion SPECT analysis: Review of the stress images demonstrate normal uptake of tracer noted in all areas of the myocardium. The resting images similarly demonstrate normal uptake of tracer noted in all areas of the myocardium. No areas of reversibility are noted to suggest ischemia no previous infarct was noted. Gated SPECT analysis: The gated ejection fraction is 58%. Conclusion: Normal exercise myocardial perfusion stress test at a moderate to high workload Preserved ejection fraction.
== END | disposition home or self-care (01) ==
PROVIDERS: PCP Family Medicine; Referring Provider Nurse Practitioner Gerontology; Visit Provider Nurse Practitioner Gerontology
DX: Z95.5 Presence of coronary angioplasty implant and graft (principal)
CPT/HCPCS: 78452; 93017; A9500; A4216

== ENCOUNTER → 2023-12-06 | Outpatient (CLI) | payer MEDICARE, OTHER, SELFPAY ==
[2023-12-06 08:34] LABS: Albumin, Serum 3.7 g/dL (3.2-5.0); BUN 36 mg/dL (7-18); Calcium,Total 8.9 mg/dL (8.5-10.1); Chloride 110 mmol/L (98-107); Creatinine, Serum 2.76 mg/dL (0.70-1.30); EST Glomerular Filtration Rate 24 mL/min (>60); Est Glom Filt Rate - Afr Amer 29 mL/min (>60); Glucose 111 mg/dL (74-106); Phosphorus 3.6 mg/dL (2.5-4.9); Potassium 4.3 mmol/L (3.5-5.1); Sodium Level 142 mmol/L (136-145)
[2023-12-06 09:29] LABS: PTHIN 99.4 pg/mL (18.4-80.1)
== END | disposition home or self-care (01) ==
LOC: LAB 07:21
PROVIDERS: PCP Family Medicine; Referring Provider Internal Medicine Nephrology; Visit Provider Internal Medicine Nephrology
DX: N18.4 Chronic kidney disease, stage 4 (severe) (principal)
CPT/HCPCS: 36415; 80069; 83970

== ENCOUNTER → 2024-01-27 | Outpatient (CLI) | payer MEDICARE, OTHER, SELFPAY ==
[2024-01-27 11:14] LABS: Absolute Lymphocyte Count 0.73 X10^3/uL (0.83-4.51); Absolute Neutrophil Count 3.3 X10^3/uL (2.0-7.7); Basophil# 0.06 X10^3/uL; Basophil% 1.3 % (0-1); Eosinophil# 0.13 X10^3/uL; Eosinophils% 2.8 % (0-5); Hemoglobin 13.4 g/dL (13.0-16.5); Lymphocyte # 0.73 X10^3/ul (0.83-4.51); Lymphocyte % 15.7 % (19-41); Mean Corp Hgb Conc 31.9 g/dL (32-36); Mean Corpuscular Hgb 29.5 pg (27.0-32.0); Mean Corpuscular Volume 92.5 fL (80-94); Mean Platelet Vol. 10.5 fl (6.2-12.0); Monocyte# 0.42 X10^3/uL; NRBC Flagged by Analyzer 0 % (0-5); Neutrophil % 70.8 % (47-70); Platelet Count 165 K/mm3 (150-450); RBC Distribution Width CV 13.2 % (11.6-14.6); RBC Distribution Width SD 44.7 fl (35.1-43.9); Red Blood Count 4.54 M/mm3 (4.6-6.2); White Blood Count 4.7 K/mm3 (4.4-11.0)
[2024-01-27 11:54] LABS: ALB/GLOB Ratio 1.1 RATIO (0.9-2.4); AST(SGOT) 17 U/L (15-37); Alanine Aminotransfer ALT/SGPT 21 U/L (16-61); Albumin, Serum 3.6 g/dL (3.2-5.0); Alkaline Phosphatase 80 U/L (45-117); Anion Gap 3 (5-15); BUN 26 mg/dL (7-18); BUN/Creat Ratio 9.8 RATIO (10-20); Calcium,Total 8.8 mg/dL (8.5-10.1); Chloride 109 mmol/L (98-107); Creatinine, Serum 2.64 mg/dL (0.70-1.30); EST Glomerular Filtration Rate 25 mL/min (>60); Est Glom Filt Rate - Afr Amer 30 mL/min (>60); Globulin 3.4 g/dL (2.2-4.2); Glucose 109 mg/dL (74-106); Potassium 4.6 mmol/L (3.5-5.1); Sodium Level 139 mmol/L (136-145)
== END | disposition home or self-care (01) ==
LOC: LAB.FUTURE 10:22 → LAB 10:24
PROVIDERS: PCP Family Medicine; Referring Provider Internal Medicine Rheumatology; Visit Provider Internal Medicine Rheumatology
DX: M06.4 Inflammatory polyarthropathy (principal); E11.9 Type 2 diabetes mellitus without complications; M16.0 Bilateral primary osteoarthritis of hip; R97.20 Elevated prostate specific antigen [PSA]; M47.897 Other spondylosis, lumbosacral region; I10 Essential (primary) hypertension; I25.10 Atherosclerotic heart disease of native coronary artery without angina pectoris; E03.9 Hypothyroidism, unspecified; E78.5 Hyperlipidemia, unspecified; N40.1 Benign prostatic hyperplasia with lower urinary tract symptoms; M72.2 Plantar fascial fibromatosis; Z79.899 Other long term (current) drug therapy
CPT/HCPCS: 80053; 84153; 84154; 85025

== ENCOUNTER → 2024-01-29 | Outpatient (CLI) | payer MEDICARE, OTHER, SELFPAY ==
[2024-01-29 09:16] LABS: Albumin, Serum 3.7 g/dL (3.2-5.0); BUN 28 mg/dL (7-18); BUN/Creat Ratio 10.5 RATIO (10-20); Calcium,Total 8.8 mg/dL (8.5-10.1); Chloride 108 mmol/L (98-107); Creatinine, Serum 2.66 mg/dL (0.70-1.30); EST Glomerular Filtration Rate 25 mL/min (>60); Est Glom Filt Rate - Afr Amer 30 mL/min (>60); Glucose 86 mg/dL (74-106); Phosphorus 3.3 mg/dL (2.5-4.9); Potassium 4.3 mmol/L (3.5-5.1); Sodium Level 139 mmol/L (136-145)
== END | disposition home or self-care (01) ==
LOC: LAB 06:20
PROVIDERS: PCP Family Medicine; Referring Provider Internal Medicine Nephrology; Visit Provider Internal Medicine Nephrology
DX: N18.4 Chronic kidney disease, stage 4 (severe) (principal)
CPT/HCPCS: 36415; 80069

== ENCOUNTER → 2024-03-31 | Outpatient (CLI) | payer MEDICARE, OTHER, SELFPAY ==
[2024-03-31 07:00] LABS: Hematocrit 43.9 % (40-54); Hemoglobin 14.2 g/dL (13.0-16.5); Mean Corp Hgb Conc 32.3 g/dL (32-36); Mean Corpuscular Volume 92.8 fL (80-94); Platelet Count 148 K/mm3 (150-450); RBC Distribution Width CV 13.3 % (11.6-14.6); RBC Distribution Width SD 45.6 fl (35.1-43.9); Red Blood Count 4.73 M/mm3 (4.6-6.2); White Blood Count 5.7 K/mm3 (4.4-11.0)
[2024-03-31 08:20] LABS: PTHIN 86.3 pg/mL (18.4-80.1)
[2024-03-31 11:26] LABS: Albumin, Serum 3.7 g/dL (3.2-5.0); BUN 27 mg/dL (7-18); BUN/Creat Ratio 10.5 RATIO (10-20); Calcium,Total 8.7 mg/dL (8.5-10.1); Chloride 109 mmol/L (98-107); Creatinine, Serum 2.58 mg/dL (0.70-1.30); EST Glomerular Filtration Rate 26 mL/min (>60); Est Glom Filt Rate - Afr Amer 31 mL/min (>60); Glucose 111 mg/dL (74-106); Phosphorus 3.1 mg/dL (2.5-4.9); Potassium 4.1 mmol/L (3.5-5.1); Sodium Level 140 mmol/L (136-145)
== END | disposition home or self-care (01) ==
LOC: LAB 06:47
PROVIDERS: PCP Family Medicine; Referring Provider Internal Medicine Nephrology; Visit Provider Internal Medicine Nephrology
DX: N18.4 Chronic kidney disease, stage 4 (severe) (principal); D63.8 Anemia in other chronic diseases classified elsewhere
CPT/HCPCS: 36415; 80069; 83970; 85027

== ENCOUNTER → 2024-04-03 | Outpatient (CLI) | payer MEDICARE, OTHER, SELFPAY ==
[2024-04-03 08:03] LABS: Cholesterol 246 mg/dL (200); High Density Lipoprotein 70 mg/dL; Triglycerides 64 mg/dL; Very Low Density Lipoprotein 13 mg/dL (5-40)
[2024-04-03 08:12] LABS: Microalbumin,Random Urine 16.8 mg/L (NO RANGE EST.); Microalbumin:Creatinine Ratio 44.8 mg/g CRE (<30 mg/g CRE)
[2024-04-03 08:32] LABS: Hemoglobin A1c 5.8 % (3.8-5.6)
== END | disposition home or self-care (01) ==
LOC: LAB 07:00
PROVIDERS: PCP Family Medicine; Referring Provider Family Medicine; Visit Provider Family Medicine
DX: I25.10 Atherosclerotic heart disease of native coronary artery without angina pectoris (principal); R73.01 Impaired fasting glucose; I10 Essential (primary) hypertension; E03.9 Hypothyroidism, unspecified
CPT/HCPCS: 80061; 82043; 82570; 83036; 84443

== ENCOUNTER → 2024-07-15 | Outpatient (CLI) | payer MEDICARE, OTHER, SELFPAY ==
--- OUTSIDE RECORDS SUMMARY | 2024-07-15 07:13 | XMS RPT_ITS | CCD ---
Author Organization [facility] Care Team Providers Care Research And Development Scientist Name Role Phone Delvis Chow DO Primary [...] day. 30 g 1 06/20/2022 07/20/2022 Active Comment on above: by RECTAL route twic e daily. Apply pea sized amount to anal opening twice a day. Completed/Discontinued Medications Medication Drug Class(es) Dates Sig (Normalized) Sig (Original) Ascorbic Acid (5 sources) Vitamin C ascorbic acid (VITAMIN C ORAL) Take by mouth once daily. 0 Active Comment on above: Take by mouth once d aily. aspirin 81 mg oral tablet (5 sources) Platelet Aggregation Inhibitor, Nonsteroidal Anti-inflammatory Drug take 1 capsule by mouth once daily aspirin 81 mg cap Take 81 mg by mouth once daily. 0 Active Comment on above: Take 81 mg by mouth once daily. cholecalciferol, vitamin D3, (VITAMIN D3 ORAL) (5 sources) cholecalciferol , vitamin D3, (VITAMIN D3 ORAL) Take by mouth once daily. 0 Active Comment on above: Take by mouth once d aily. hydroxychloroquine sulfate 200 mg oral tablet (5 sources) Antimalarial, Antirheumatic Agent Start: 03-25-2022 take 1 tablet by mouth once daily PLAQUENIL 200 mg tablet Take 200 mg by mouth once daily. 0 03/25/2022 Active Comment on above: Take 200 mg by mouth once daily. 24 hr metoprolol succinate 25 mg extended release oral tablet (5 sources) beta-Adrenergic Danielle Start: 04-14-2022 take 1 tablet by mouth once daily metoprolol succinate ER (TOPROL XL) 25 mg 24 hr tablet Take 12.5 mg by mouth once daily. 0 04/14/2022 Active Comment on above: Take 12.5 mg by mout h once daily. FNNKAJC-IUYF-WZCMT-OREG- CAPRYL ORAL (5 sources) EBDBCAN-JXQV-IE CMX-PILE-PXLOGR ORAL Take by mouth once daily. 0 Active Comment on above: Take by mouth once d aily. Problems Problem Classification Problem Date Documented Da te Episodic/Chronic Anal and rectal conditions (5 sources) Anorectal pain; Translations: [Other specified diseases of anus and rectum] Onset: 07-31-2022 Episodic Results Test Name Value Interpretation Reference Range Facility No Panel Informationon 11-18 [facility] 10-29-2023 [facility] Telephone ([facility]) JOHN ARRIOLA ([id number]) 1945 M Date Time Provider Department 10/29/23 GOKUL DWYER [facility] During your visit today, we recorded the following information about you: Gokul Dwyer, (R) 10/29/2023 9:05 AM Signed Marcel, Please protocol this Cardiac MRI scheduled in [place] on 11/19/2023. Gokul Chavez Vinayak A, MD 10/29/2023 11:24 PM Signed Constrictive pericarditis protocol Marcel, Get the the dark, and bright bloods, STIR the 4 C, 2 C, one short axis, inject contrast, get first pass, and get delayed images at 8 min (fat suppressed PSIRS, SPAIR). Cine images should include a real time free breathing 4 C, and three short axis slices ( basal, mid, apex). Get 4 C stack. If you see a mass in the pericardial fluid, pls get a T1 weighted ( F AND W REYNA), and T2 weighted STIR at the level where you see the mass. Gadolinium run has to be obtained (perfusion) at the level where you see the pericardial mass. Qp, Qs if ordered. T1 Mapping ( 3 levels), T2 mapping required, grid tagging of 4 c, 2 c, SA base, mid, apex. . Qp, Qs if valve leaks/stenosis, or if ordered. If you do them, pls make sure there is no aliasing in the Qp or Qs. Thanks, Dr Yip Allergies As of Date: 10/29/2023 (No Known Allergies) Date Reviewed: 07/31/2022 Reviewed by: Madie Duffy RN - Fully Assessed Reason for Visit: Other [1320] Cmt: Please protocol this Cardiac MRI Prescriptions as of 10/29/2023 - metoprolol succinate ER (TOPROL XL) 25 mg 24 hr tablet Take 12.5 mg by mouth once daily. - PLAQUENIL 200 mg tablet Take 200 mg by mouth once daily. - ascorbic acid (VITAMIN C ORAL) Take by mouth once daily. - aspirin 81 mg cap Take 81 mg by mouth once daily. - cholecalciferol, vitamin D3, (VITAMIN D3 ORAL) Take by mouth once daily. - ISUJWBL-GITE-WRNKQ-OR EG-CAPRYL ORAL Take by mouth once daily. Problem List As Of Date: 10/29/2023 (None) Encounter Status:Closed by GOKUL DWYER on 10/29/23 [facility] SURGICAL PATHOLOGYon 16- 022 Case Report Surgical Pathology Report Case: [id number] Authorizing Provider: Sherry Guadarrama MD Collected: 07/31/2022 12:51 PM Ordering Location: Procedures Received: 07/31/2022 02:47 PM Pathologist: Juan Field MD, PhD Specimens: A) - RECTAL BIOPSY, distal rectal nodule B) - RECTAL POLYP [facility] FINAL DIAGNOSIS A. 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 B. Rectum, polyp, biopsy: - Hyperplastic polyp. [facility] Gross Description A. RECTAL BIOPSY Received in formalin are two pieces of mims, soft tissue aggregating to 0.8 x 0.2 x 0.2 cm. Totally submitted in formalin in one cassette. B. RECTAL POLYP Received in formalin is one piece of mims, soft tissue measuring 0.3 x 0.2 x 0.2 cm. Totally submitted in formalin in one cassette. Gross examination performed at [facility], [address] [place] [address] 07/31/2022 8:16 PM [facility] Performing Lab Diagnostic interpretation performed at [facility], [address] [place] [address] CLIA# [id number] Senior Security Analyst: Deion Lion M.D. [facility] ANES POSTPROC EVALon 022 ANES POSTPROC EVAL HNO ID: [id number] Author: Maggie Dong MD Service: Anesthesiology Author Type: Anesthesiologist Type: Anesthesia Postprocedure Evaluation Filed: 07/31/2022 2:39 PM Note Text: POST ANESTHESIA EVALUATION NOTE : 1945 Procedure Summary Date: 07/31/22 Room / Location: Procedures Anesthesia Start: 1237 Anesthesia Stop: 1257 Procedure: SIGMOIDOSCOPY Diagnosis: Anal fissure Scheduled Providers: Sherry Guadarrama MD; Diony Arceo APRN.CRITICAL CARE CNS; Maggie Dong MD Responsible Provider: Maggie Dong MD Anesthesia Type: MAC ASA Status: 2 Anesthesia Type: MAC Last Vitals Vitals Value Taken Time BP 123/73 07/31/22 1315 Temp 36.4 ?C (97.5 ?F) 07/31/22 1255 Pulse 96 07/31/22 1315 Resp 16 07/31/22 1315 SpO2 97 % 07/31/22 1315 Post Anesthesia Patient Status Patient Evaluation: PACU. Neurological Status: aware and responsive. Pulmonary Status: breathing comfortably on room air Airway Control: returned to baseline unsupported. Cardiovascular Status: stable. Pain Management: clinically adequate Postoperative Hydration: acceptable. Intraoperative Events: no significant anesthesia events Post Operative Nausea/Vomiting Status: no significant post operative nausea or vomiting Recommendation: continue current plan of care. Anesthesia Observations No Documentation SIGNATURE: MAGGIE DONG MD PATIENT NAME: John Arriola DATE: July 31, 2022 TIME: 2:39 PM CSN: [id number] [facility] ANES PRE-OPon 07-31-2022 ANES PRE-OP HNO ID: [id number] Author: Maggie Dong MD Service: Anesthesiology Author Type: Anesthesiologist Type: Anesthesia Preprocedure Evaluation Filed: 07/31/2022 10:38 AM Note Text: ANESTHESIOLOGY DAY OF SURGERY NOTE : 1945 Procedure Information Date/Time: 07/31/22 1130 Scheduled providers: Sherry Guadarrama MD; Diony Arceo APRN.CRITICAL CARE CNS; Maggie Dong MD Procedure: SIGMOIDOSCOPY Location: Procedures Estimated body mass index is 26.26 kg/m? as calculated from the following: Height as of 06/20/22: 177.8 cm (5' 10 ). Weight as of 06/20/22: 83 kg (183 lb). Most recent hematocrit and potassium results: No results found for this basename: HCT,HEMATOCRIT,K,POTA SSIUM Relevant Problems No relevant active problems I - PHYSICAL EVALUATION AIRWAY Patient intubated: No. Tracheostomy tube not present Mallampati: II. TM distance: >3 FB. Neck ROM: full ROM without neurological symptoms. Mouth opening: adequate. Short neck: no. Thick neck: no Browning present: no DENTAL Normal dental observations. Dental findings: teeth intact. Additional exam findings: yes. CARDIOVASCULAR Rhythm: regular Rate: normal PULMONARY Breath sounds clear to auscultation. II - ANESTHESIA PLAN ASA Score: 2 Anesthetic Plan: MAC NPO Status: adequate Beta Danielle Monitoring Plan Monitoring plan: Standard ASA. Post Procedure Analgesic Plan Postoperative analgesic plan: parenteral or oral opioids and multimodal analgesia. Informed Consent Anesthetic risks, benefits, alternatives, personnel and consent discussed: yes. Patient / Responsible Republican agrees to proceed: yes Patient / Surrogate agrees to blood products: blood products not planned DNR status not reviewed with patient and/or family prior to surgery. Significant changes in the patient condition since the History and Physical, not otherwise documented in primary service progress note: no. Potential Anesthesia issues that may suggest increased risk of complications or contraindication to planned procedure: none. No vitals data found for the desired time range. Outpatient Medications as of 07/31/2022 Medication Sig - metoprolol succinate ER (TOPROL XL) 25 mg 24 hr tablet Take 12.5 mg by mouth once daily. - PLAQUENIL 200 mg tablet Take 200 mg by mouth once daily. - ascorbic acid (VITAMIN C ORAL) Take by mouth once daily. - aspirin 81 mg cap Take 81 mg by mouth once daily. - cholecalciferol, vitamin D3, (VITAMIN D3 ORAL) Take by mouth once daily. - QIPZYIB-NWOC-FOGEN-OR EG-CAPRYL ORAL Take by mouth once daily. No current facility-administered medications on file as of 07/31/2022. I have interviewed and examined the patient. I have reviewed the medical record and/or the pre-anesthesia evaluation, pertinent labs, and test results. This contains updated information obtained within 48 hours of Surgery/Procedure. SIGNATURE: MAGGIE DONG MD PATIENT NAME: John Arriola DATE: July 31, 2022 TIME: 10:38 AM CSN: [id number] Normal [facility] Flexible Sigmoidoscopyon Flexible sigmoidoscopy [facility] Gastrointestinal Endoscopy Patient Name: John Arriola Procedure Date: 07/31/2022 12:34 PM Date of : 1945 Admit Type: Outpatient Age: 76 Room: [place] [address] Gender: Male Note Status: Finalized Attending MD: Sherry Guadarrama MD Procedure: Flexible Sigmoidoscopy Indications: High risk colon cancer surveillance: Personal history of colonic polyps Providers: Sherry Guadarrama MD Patient Profile: This is a 76 year old male. Refer to note in patient chart for documentation of history and physical. Last Colonoscopy: 1 year ago. Referring Physician: Sherry Guadarrama MD (Referring MD) Medicines: Monitored Anesthesia Care Complications: No immediate complications. Requesting Provider: Procedure: Pre-Anesthesia Assessment: - Prior to the procedure, a History and Physical was performed, and patient medications and allergies were reviewed. The patient is competent. The risks and benefits of the procedure and the sedation options and risks were discussed with the patient. All questions were answered and informed consent was obtained. Patient identification and proposed procedure were verified by the physician and the nurse in the pre-procedure area in the endoscopy suite. Mental Status Examination: alert and oriented. Airway Examination: normal oropharyngeal airway and neck mobility. ASA Grade Assessment: III - A patient with severe systemic disease. After reviewing the risks and benefits, the patient was deemed in satisfactory condition to undergo the procedure. The anesthesia plan was to use monitored anesthesia care (MAC). Immediately prior to administration of medications, the patient was re-assessed for adequacy to receive sedatives. The heart rate, respiratory rate, oxygen saturations, blood pressure, adequacy of pulmonary ventilation, and response to care were monitored throughout the procedure. The physical status of the patient was re-assessed after the procedure. After obtaining informed consent, the scope was passed under direct vision. The Colonoscope was introduced through the anus and advanced to the rectosigmoid junction. The flexible sigmoidoscopy was accomplished without difficulty. The patient tolerated the procedure well. The quality of the bowel preparation was good. Moderate Sedation: MAC anesthesia was administered by the anesthesia team. Total Procedure Duration: 0 hours 9 minutes 36 seconds Findings: The perianal and digital rectal examinations were normal. A 4 mm polyp was found in the distal rectum. The polyp was sessile. The polyp was removed with a jumbo cold forceps. Resection and retrieval were complete. A localized area of mildly nodular mucosa was found in the distal rectum. Biopsies were taken with a cold forceps for histology. This was just proximal to internal hemorrhoidal plexus The exam was otherwise without abnormality. Impression: - One 4 mm polyp in the distal rectum, removed with a jumbo cold forceps. Resected and retrieved. - Nodular mucosa in the distal rectum. Biopsied. - The examination was otherwise normal. Recommendation: - Continue present medications. - Discharge patient to home. - Resume previous diet. Procedure Code(s): --- Professional --- 77731, 52, Sigmoidoscopy, flexible; with biopsy, single or multiple CPT copyright 2020 [employer]. All rights reserved. The codes documented in this report are preliminary and upon computer aided design operator review may be revised to meet current compliance requirements. Attending Participation: I was present and participated during the entire procedure, including non-roche portions. Scope In: 12:44:23 PM Scope Out: 12:53:59 PM MD Sherry Hooker MD 07/31/2022 12:58:18 PM This report has been signed electronically by Sherry Guadarrama MD Number of Addenda: 0 Note Initiated On: 07/31/2022 12:34 PM Estimated Blood Loss: Estimated blood loss was minimal. Normal [facility] HISTORY PHYSICALon 2 HISTORY PHYSICAL HNO ID: [id number] Author: My Hughes MD Service: Colorectal Author Type: Resident Type: HANDP Filed: 07/31/2022 12:30 PM Note Text: Attestation signed by Sherry Guadarrama MD at 07/31/2022 12:31 PM Attending Note I evaluated the patient and personally participated in the roche components. I agree with the resident's findings and plan as documented and have discussed the case and management of the patient's care with the resident. Signature: Sherry Guadarrama MD Date: 07/31/2022 Time: 12:31 PM HISTORY AND PHYSICAL EXAMINATION SERVICE DATE: 07/31/2022 SERVICE TIME: 12:28 PM PRIMARY CARE PHYSICIAN: Delvis Chow DO REASON FOR VISIT: John Arriola is a 76 year old male who is being seen for Sigmodoscopy The patient has the following: There is no problem list on file for this patient. SUBJECTIVE CHIEF COMPLAINT: hemorrhoids HPI: John Arriola is a 76 year old male with history of HTN, HLD who presents to clinic for evaluation/treatment of sigmoidoscopy. PAST MEDICAL HISTORY Diagnosis Date Bleeding nose Essential hypertension H pylori ulcer Heart attack (HCC) 2016 Hemorrhoid Hyperlipemia Kidney stones PAST SURGICAL HISTORY Procedure Laterality Date PAST SURGICAL HISTORY OF 2005 hemorroidectomy PAST SURGICAL HISTORY OF 2010 heart stent x2 PAST SURGICAL HISTORY OF 2016 heart stent PAST SURGICAL HISTORY OF 1998 nasal surgery PAST SURGICAL HISTORY OF Left 2013 clavicle PAST SURGICAL HISTORY OF 2019 urolift FAMILY HISTORY Problem Relation Age of Onset Heart disease Mother Heart disease Father Heart disease Sister Heart disease Brother SOCIAL HISTORY: Social History Tobacco Use Smoking status: Former Packs/day: 0.50 Types: Cigarettes Quit date: 09/16/1981 Years since quittin.8 Smokeless tobacco: Never Vaping Use Vaping Use: Never used Substance Use Topics Alcohol use: Yes Comment: 1 glass of wine weekly if that Drug use: Never MEDICATIONS: Prior to Admission medications as of 07/31/22 1136 Medication Sig Last Dose Taking metoprolol succinate ER (TOPROL XL) 25 mg 24 hr tablet Take 12.5 mg by mouth once daily. 07/29/2022 PLAQUENIL 200 mg tablet Take 200 mg by mouth once daily. ascorbic acid (VITAMIN C ORAL) Take by mouth once daily. aspirin 81 mg cap Take 81 mg by mouth once daily. 07/27/2022 cholecalciferol, vitamin D3, (VITAMIN D3 ORAL) Take by mouth once daily. GVGQHGX-GMBY-QDUQN-OR EG-CAPRYL ORAL Take by mouth once daily. No medication comments found. CURRENT ALLERGIES: ALLERGIES No Known Allergies REVIEW OF SYSTEMS: PAIN ASSESSMENT: Pain Pain Level: 0 Pain Assessment: Assessment Tool: Verbal (Numeric Rating or Visual Analog Scale) Consitutional: Denies fevers/chills, significant weight loss/gain HEENT: Denies OROPEZA, vision changes CV: Denies chest pain, palpitations, leg swelling Pulm: Denies coughing, SOB, hemoptysis GI: see HPI :Denies hematuria, dysuria, urinary incontinence, retention MSK: Denies back pain, joint pain Neuro: Denies dizziness/syncope Skin:Denies rashes/lesions Heme: Denies hx of easy bleeding/bruising, hx of DVT/PE, no anticoagulation PHYSICAL EXAM: VITALS: BP 150/92 Temp (Src) 97.6 (Temporal) Resp 18 SpO2 96% O2 Therapy: Room Air GENERAL: Alert, no distress, cooperative SKIN: No rashes or lesions. HEAD/SINUSES: Atraumatic EYES: Anicteric, EOMI OROPHARYNX: Oral mucosa moist NECK: Supple LUNGS: CTAB, no increased work of breathing CARDIAC:RRR, Normal S1 and S2; no rubs, murmurs, or gallops ABDOMEN: Abdomen soft, non-tender, non-distended EXTREMITIES: No peripheral edema PULSES: 2+ radial Diagnostic tests reviewed for today's visit: Most recent labs Most recent imaging ASSESSMENT John Arriola is a 76 year old male who presents for evaluation/treatment of internal hemorrhoids PLAN Proceed with sigmoidoscopy Instructions Given to Patient: Patient given verbal and written preop instructions and voices comprehension and compliance. SIGNATURE: My Hughes MD PATIENT NAME: John Arriola DATE: July 31, 2022 TIME: 12:28 PM PAGER/CONTACT #: [id number] [facility] SIGMOIDOSCOPYon 07-31-2022 [facility] SURGICAL PATHOLOGYon 022 CASE REPORT [facility] Comment on above: Order Comment: Speci men Type: TISSUE SPECIMEN Ordering Facility: [facility] Address: [address] [place] [address] Result Comment: [facility] Pathology Report Case: [id number] Authorizing Provider: Sherry Guadarrama MD Collected: 07/31/2022 12:51 PM Ordering Location: Procedures Received: 07/31/2022 02:47 PM Pathologist: Juan Field MD, PhD Specimens: A) - RECTAL BIOPSY, distal rectal nodule B) - RECTAL POLYP Performed By: #### S #### [facility] CLIA [id number] [address] [place] [address] OF [facility] FINAL DIAGNOSIS Normal [facility] ital Comment on above: Order Comment: Speci men Type: TISSUE SPECIMEN Ordering Facility: [facility] Address: [address] [place] [address] Result Comment: A. 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 B. Rectum, polyp, biopsy: - Hyperplastic polyp. Performed By: #### S #### [facility] CLIA [id number] [address] [place] [address] FINAL PERFORMING LAB Normal [facility] Comment on above: Order Comment: Speci men Type: TISSUE SPECIMEN Ordering Facility: [facility] Address: [address] [place] [address] Result Comment: Diag nostic interpretation performed at [place] [address] CLIA# [id number] Senior Security Analyst: Deion Lion M.D. Performed By: #### S #### [facility] CLIA [id number] [address] [place] [address] GROSS DESCRIPTION Normal [facility] Comment on above: Order Comment: Speci men Type: TISSUE SPECIMEN Ordering Facility: [facility] Address: [address] [place] [address] Result Comment: A. R ECTAL BIOPSY Received in formalin are two pieces of mims, soft tissue aggregating to 0.8 x 0.2 x 0.2 cm. Totally submitted in formalin in one cassette. B. RECTAL POLYP Received in formalin is one piece of mims, soft tissue measuring 0.3 x 0.2 x 0.2 cm. Totally submitted in formalin in one cassette. Gross examination performed at [facility], [address] [place] [address] 07/31/2022 8:16 PM Performed By: #### S #### [facility] CLIA [id number] [address] [place] [address] OF [facility] CNOVon 06-20-2022 CNOV Office Visit ([facility] ) JOHN ARRIOLA ([id number]) 1945 M Date Time Provider Department 06/20/22 9:20 AM SHERRY GUADARRAMA [facility] During your visit today, we recorded the following information about you: Temperature Pulse Blood pressure Weight 97.8 degrees 71/minute 137/74 83 kg Height 1.778 m Sherry Guadarrama MD 06/20/2022 10:27 AM Signed COLORECTAL SURGERY June 20, 2022 John Arriola 76 year old This consult was requested by Dr. Kaplan and my final recommendations will be communicated to the requesting health care provider by way of the shared medical record for internal providers or letter via the [employer] for external providers. Chief Complaint: perianal mass History of Present Illness: John Arriola is a 76 year old male presents today for evaluation of perianal mass. Seen by Dr. Kaplan on 06/14/22 Colonoscopy 09/26/20 - Dr. Sethi at [facility] Impression: - Three 3 to 7 mm polyps in the descending colon, removed with a hot snare. Resected and retrieved. - Rule out malignancy, tumor at the anus, Biopsied. - Diverticulosis in the sigmoid colon. No specimens collected. - The examination was otherwise normal. Pathology: MICROSCOPIC DIAGNOSIS A. Descending colon polyps, biopsy: Fragments of tubular adenoma B. Anal mass, biopsy: Fragments of hyperplastic polyp. 76-year-old male with the above-stated history. He never followed up on the colonoscopic findings with concern for anal mass. He reports he has some rectal pain intermittently but has been pretty good recently. It sometimes gets worse with bowel movements. Occasional blood PAST MEDICAL HISTORY Diagnosis Date Bleeding nose Essential hypertension H pylori ulcer Heart attack (HCC) 2016 Hemorrhoid Hyperlipemia Kidney stones PAST SURGICAL HISTORY Procedure Laterality Date PAST SURGICAL HISTORY OF 2004 hemorroidectomy PAST SURGICAL HISTORY OF 2010 heart stent x2 PAST SURGICAL HISTORY OF 2015 heart stent PAST SURGICAL HISTORY OF 1998 nasal surgery PAST SURGICAL HISTORY OF Left 2013 clavicle PAST SURGICAL HISTORY OF 2019 urolift Current Outpatient Medications Medication Sig Dispense Refill metoprolol succinate ER (TOPROL XL) 25 mg 24 hr tablet Take 12.5 mg by mouth once daily. PLAQUENIL 200 mg tablet Take 200 mg by mouth once daily. ascorbic acid (VITAMIN C ORAL) Take by mouth once daily. aspirin 81 mg cap Take 81 mg by mouth once daily. cholecalciferol, vitamin D3, (VITAMIN D3 ORAL) Take by mouth once daily. EMBDRRX-SJPD-LOCFL-OR EG-CAPRYL ORAL Take by mouth once daily. No current facility-administered medications for this visit. ALLERGIES No Known Allergies FAMILY HISTORY Problem Relation Age of Onset Heart disease Mother Heart disease Father Heart disease Sister Heart disease Brother Social History Tobacco Use Smoking status: Former Types: Cigarettes Smokeless tobacco: Never Vaping Use Vaping Use: Never used Substance Use Topics Alcohol use: Yes Comment: social Drug use: Never Physical Exam: BP 137/74 (BP Site: Right Arm, BP Position: Sitting, BP Cuff Size: Regular Adult) Pulse 71 Temp 36.6 ?C (97.8 ?F) Ht 177.8 cm (5' 10 ) Wt 83 kg (183 lb) SpO2 95% BMI 26.26 kg/m? General Appearance: Well appearing, alert, in no acute distress, well-hydrated, well nourished. Anorectal: External exam reveals posterior midline anal fissure. Digital rectal exam reveals no gross blood or masses Telemetry Nurse present: Yes, Ladi Ortez Assessment Assessment and Plan: John Arriola is a 76 year old male with posterior midline anal fissure and colonoscopy from over a year ago that was concerning for anal malignancy. I prescribed nifedipine ointment for his posterior midline anal fissure. I did not feel a mass today but I do think we need to follow this up further. I will schedule him for flexible sigmoidoscopy with me. At that time I will ask him how his pain has been to see if the nifedipine has been working. Of note he has had a hemorrhoidectomy in the past but has good bowel function Medical Decision Making: Data Reviewed: Tests AND Documents Reviewed/ordered: Review of prior notes from Dr. Kaplan Review of Pathology Review of Labs: CBC, BMP Review of Procedures / Tests: Colonoscopy I have discussed John Arriola's treatment plan and/or results with Dr. Kaplan. Risk of morbidity, mortality and/or complications of treatment plan: marcelle Guadarrama MD Colorectal Surgery Bonnie Benavides MA 06/20/2022 10:00 AM Signed What is the reason for your visit today? New patient presents today for evaluation of perianal mass. Who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
[2024-07-15 07:33] LABS: Absolute Lymphocyte Count 1.14 X10^3/uL (0.83-4.51); Basophil# 0.06 X10^3/uL; Basophil% 1.2 % (0-1); Eosinophil# 0.36 X10^3/uL; Eosinophils% 7.2 % (0-5); Hematocrit 44.3 % (40-54); Hemoglobin 14.4 g/dL (13.0-16.5); Lymphocyte # 1.14 X10^3/ul (0.83-4.51); Lymphocyte % 22.9 % (19-41); Mean Corp Hgb Conc 32.5 g/dL (32-36); Mean Corpuscular Hgb 29.9 pg (27.0-32.0); Mean Corpuscular Volume 91.9 fL (80-94); Mean Platelet Vol. 10.2 fl (6.2-12.0); NRBC Flagged by Analyzer 0 % (0-5); Neutrophil # 2.99 X10^3/uL (2.7-7.7); Neutrophil % 60.1 % (47-70); Platelet Count 158 K/mm3 (150-450); RBC Distribution Width SD 43.6 fl (35.1-43.9); Red Blood Count 4.82 M/mm3 (4.6-6.2)
[2024-07-15 08:08] LABS: ALB/GLOB Ratio 1.1 RATIO (0.9-2.4); AST(SGOT) 14 U/L (15-37); Alanine Aminotransfer ALT/SGPT 19 U/L (16-61); Albumin, Serum 3.6 g/dL (3.2-5.0); Alkaline Phosphatase 99 U/L (45-117); Anion Gap 5 (5-15); BUN 31 mg/dL (7-18); Calcium,Total 8.6 mg/dL (8.5-10.1); Chloride 113 mmol/L (98-107); Creatinine, Serum 2.58 mg/dL (0.70-1.30); EST Glomerular Filtration Rate 26 mL/min (>60); Est Glom Filt Rate - Afr Amer 31 mL/min (>60); Globulin 3.2 g/dL (2.2-4.2); Glucose 117 mg/dL (74-106); Potassium 4.1 mmol/L (3.5-5.1); Protein, Total 6.8 g/dL (6.4-8.2); Sodium Level 143 mmol/L (136-145)
== END | disposition home or self-care (01) ==
LOC: LAB 07:11
PROVIDERS: PCP Family Medicine; Referring Provider Internal Medicine Rheumatology; Visit Provider Internal Medicine Rheumatology
DX: M06.4 Inflammatory polyarthropathy (principal); Z79.899 Other long term (current) drug therapy
CPT/HCPCS: 36415; 80053; 85025

== ENCOUNTER → 2024-08-26 | Outpatient (CLI) | payer MEDICARE, OTHER, SELFPAY ==
[2024-08-26 14:57] LABS: Hematocrit 47.3 % (40-54); Hemoglobin 14.9 g/dL (13.0-16.5); Mean Corp Hgb Conc 31.5 g/dL (32-36); Mean Corpuscular Hgb 29.2 pg (27.0-32.0); Mean Corpuscular Volume 92.6 fL (80-94); Mean Platelet Vol. 10.2 fl (6.2-12.0); Platelet Count 171 K/mm3 (150-450); RBC Distribution Width CV 13.3 % (11.6-14.6); RBC Distribution Width SD 45.4 fl (35.1-43.9); Red Blood Count 5.11 M/mm3 (4.6-6.2); White Blood Count 5.5 K/mm3 (4.4-11.0)
[2024-08-26 15:30] LABS: Albumin, Serum 3.8 g/dL (3.2-5.0); BUN 26 mg/dL (7-18); BUN/Creat Ratio 10.6 RATIO (10-20); Calcium,Total 9.2 mg/dL (8.5-10.1); Chloride 107 mmol/L (98-107); Creatinine, Serum 2.46 mg/dL (0.70-1.30); EST Glomerular Filtration Rate 27 mL/min (>60); Est Glom Filt Rate - Afr Amer 33 mL/min (>60); Glucose 110 mg/dL (74-106); Phosphorus 3.4 mg/dL (2.5-4.9); Potassium 4.7 mmol/L (3.5-5.1); Sodium Level 139 mmol/L (136-145)
[2024-08-26 15:42] LABS: Microalbumin,Random Urine 45.8 mg/L (NO RANGE EST.); Microalbumin:Creatinine Ratio 82.5 mg/g CRE (<30 mg/g CRE)
== END | disposition home or self-care (01) ==
LOC: LAB 13:52
PROVIDERS: PCP Family Medicine; Referring Provider Internal Medicine Nephrology; Visit Provider Internal Medicine Nephrology
DX: E11.22 Type 2 diabetes mellitus with diabetic chronic kidney disease (principal); N18.4 Chronic kidney disease, stage 4 (severe)
CPT/HCPCS: 36415; 80069; 82043; 82570; 85027

== ENCOUNTER → 2024-09-28 | Outpatient (CLI) | payer MEDICARE, OTHER, SELFPAY ==
[2024-09-28 08:14] LABS: AST(SGOT) 14 U/L (15-37); Alanine Aminotransfer ALT/SGPT 21 U/L (16-61); Albumin, Serum 3.9 g/dL (3.2-5.0); Alkaline Phosphatase 94 U/L (45-117); Cholesterol 235 mg/dL (200); Globulin 3.6 g/dL (2.2-4.2); High Density Lipoprotein 79 mg/dL; Protein, Total 7.5 g/dL (6.4-8.2); Triglycerides 66 mg/dL; Very Low Density Lipoprotein 13 mg/dL (5-40)
== END | disposition home or self-care (01) ==
LOC: LAB 07:16
PROVIDERS: PCP Family Medicine; Referring Provider Nurse Practitioner Family; Visit Provider Nurse Practitioner Family
DX: E78.00 Pure hypercholesterolemia, unspecified (principal)
CPT/HCPCS: 36415; 80061; 80076

== ENCOUNTER → 2025-01-02 | Outpatient (CLI) | payer MEDICARE, OTHER, SELFPAY ==
[2025-01-02 09:08] LABS: Hematocrit 46.9 % (40-54); Hemoglobin 15.3 g/dL (13.0-16.5); Mean Corp Hgb Conc 32.6 g/dL (32-36); Mean Corpuscular Hgb 29.6 pg (27.0-32.0); Mean Corpuscular Volume 90.7 fL (80-94); Mean Platelet Vol. 10.4 fl (6.2-12.0); Platelet Count 153 K/mm3 (150-450); RBC Distribution Width CV 13.8 % (11.6-14.6); RBC Distribution Width SD 46.1 fl (35.1-43.9); Red Blood Count 5.17 M/mm3 (4.6-6.2); White Blood Count 4.3 K/mm3 (4.4-11.0)
[2025-01-02 09:53] LABS: PTHIN 91 pg/mL (11-61)
[2025-01-02 09:54] LABS: Microalbumin,Random Urine 46.7 mg/L (NO RANGE EST.); Microalbumin:Creatinine Ratio 1194.4 mg/g CRE
[2025-01-02 10:02] LABS: Albumin, Serum 4.2 g/dL (3.4-4.8); Anion Gap 11 (5-15); BUN 22 mg/dL (4-19); BUN/Creat Ratio 9.2 RATIO (10-20); Carbon Dioxide 22.6 mmol/L (21.0-32.0); Chloride 104 mmol/L (98-108); Creatinine, Serum 2.37 mg/dL (0.70-1.20); EST Glomerular Filtration Rate 27 (>60); Glucose 127 mg/dL (70-99); Potassium 4.4 mmol/L (3.3-5.1); Sodium Level 138 mmol/L (133-145)
== END | disposition home or self-care (01) ==
LOC: LAB 08:13
PROVIDERS: PCP Family Medicine; Referring Provider Internal Medicine Nephrology; Visit Provider Internal Medicine Nephrology
DX: E11.22 Type 2 diabetes mellitus with diabetic chronic kidney disease (principal); N18.4 Chronic kidney disease, stage 4 (severe)
CPT/HCPCS: 36415; 80069; 82043; 82570; 83970; 85027

== ENCOUNTER → 2025-01-12 | Outpatient (CLI) | payer MEDICARE, OTHER, SELFPAY ==
[2025-01-12 11:40] LABS: Absolute Lymphocyte Count 0.63 X10^3/uL (0.83-4.51); Absolute Neutrophil Count 4.8 X10^3/uL (2.0-7.7); Basophil# 0.04 X10^3/uL; Basophil% 0.7 % (0-1); Eosinophil# 0.09 X10^3/uL; Eosinophils% 1.5 % (0-5); Hematocrit 45.9 % (40-54); Lymphocyte # 0.63 X10^3/ul (0.83-4.51); Lymphocyte % 10.5 % (19-41); Mean Corp Hgb Conc 32.7 g/dL (32-36); Mean Corpuscular Hgb 29.9 pg (27.0-32.0); Mean Corpuscular Volume 91.6 fL (80-94); Mean Platelet Vol. 10.5 fl (6.2-12.0); Monocyte# 0.43 X10^3/uL; Monocyte% 7.2 % (0-10); NRBC Flagged by Analyzer 0 % (0-5); Neutrophil % 79.8 % (47-70); Platelet Count 162 K/mm3 (150-450); RBC Distribution Width CV 13.9 % (11.6-14.6); RBC Distribution Width SD 46.8 fl (35.1-43.9); Red Blood Count 5.01 M/mm3 (4.6-6.2)
[2025-01-12 12:21] LABS: ALB/GLOB Ratio 1.5 RATIO (0.9-2.4); AST(SGOT) 23 U/L (<=37); Alanine Aminotransfer ALT/SGPT 14 U/L (<=46); Albumin, Serum 4.1 g/dL (3.4-4.8); Alkaline Phosphatase 66 U/L (40-129); Anion Gap 12 (5-15); BUN 30 mg/dL (4-19); BUN/Creat Ratio 12.3 RATIO (10-20); Carbon Dioxide 22.4 mmol/L (21.0-32.0); Chloride 104 mmol/L (98-108); Creatinine, Serum 2.43 mg/dL (0.70-1.20); EST Glomerular Filtration Rate 27 (>60); Globulin 2.7 g/dL (2.2-4.2); Glucose 167 mg/dL (70-99); Potassium 4.5 mmol/L (3.3-5.1); Protein, Total 6.9 g/dL (5.9-8.4); Sodium Level 139 mmol/L (133-145); Total Bilirubin 0.48 mg/dL (0.00-1.30)
== END | disposition home or self-care (01) ==
LOC: LAB 10:45
PROVIDERS: PCP Family Medicine; Referring Provider Internal Medicine Rheumatology; Visit Provider Internal Medicine Rheumatology
DX: M06.4 Inflammatory polyarthropathy (principal); M16.0 Bilateral primary osteoarthritis of hip; Z79.899 Other long term (current) drug therapy
CPT/HCPCS: 36415; 80053; 85025

== ENCOUNTER → 2025-05-03 | Outpatient (CLI) | payer MEDICARE, OTHER, SELFPAY ==
--- OUTSIDE RECORDS SUMMARY | 2025-05-03 07:09 | XMS RPT_ITS | CCD ---
Author Organization [facility] Care Team Providers Care Classified Advertising Clerk Name Role Phone Dr. Delvis Maldonado Primary Care Provider [phone] Dr. Delvis Maldonado Referring Provider Dr. Ruiz Gary Attending Provider Delvis Maldonado DO Primary Care Provider CHRIS ORNELAS Attending Unavailable DELVIS MALDONADO Primary Care Unavailable SHERRY GUADARRAMA Attending Unavailable CHRIS ORNELAS Referring Unavailable DELVIS MALDONADO Primary Care Unavailable LATOYA JORDAN Attending Unavail able SHERRY GUADARRAMA Referring Unavailable DELVIS MALDONADO Primary Care Unavailable Dr. Delvis Maldonado Primary Care Provider [phone] Dr. Delvis Maldonado Referring Provider [phone] Roof VENEER JOINTER RETURNER, TREMAYNE-Mishel Briones Attending Provider Dr. Delvis Maldonado Primary Care Provider [phone] Dr. Delvis Maldonado Referring Provider Roof VENEER JOINTER RETURNER, TREMAYNE-Mishel Briones Attending Provider Dr. Delvis Maldonado Primary Care Provider [phone] Dr. Delvis Maldonado Referring Provider Roof VENEER JOINTER RETURNER, VENEER JOINTER RETURNER-C Mike Briones Attending Provider Dr. Delvis Maldonado Primary Care Provider [phone] Dr. Anju Alexis Emergency Provider [phone] Dr. Karlos Hernandez Attending Provider Dr. Alla Jaquez Attending Provider Dr. Karlos Hernandez Admit Provider Dr. Karlos Hernandez Other Provider Dr. Joseph Mora Other Provider [phone] Delvis Maldonado Primary Care Provider [phone] Dr. Anju Alexis Emergency Provider Dr. Karlos Hernandez Attending Provider Dr. Alla Jaquez Attending Provider Dr. Karlos Hernandez Admit Provider Dr. Karlos Hernandez Other Provider Dr. Joseph Mora Other Provider Delvis Maldonado DO Primary Care Provider Dr. Delvis Maldonado Primary Care Provider [phone] Dr. Anju Alexis Emergency Provider Dr. Karlos Hernandez Attending Provider Dr. Alla Jaquez Attending Provider Dr. Karlos Hernandez Admit Provider Dr. Karlos Hernandez Other Provider Dr. Joseph Mora Other Provider [phone] Dr. Delvis Maldonado Referring Provider Duran CASPER, VENEER JOINTER RETURNER-C Nika Attending Provider Dr. Delvis Maldonado Primary Care Provider [phone] Dr. Anju Alexis Emergency Provider Dr. Karlos Hernandez Attending Provider Dr. Delvis Maldonado Referring Provider Duran CASPER, VENEER JOINTER RETURNER-C Nika Attending Provider Duran CASPER, VENEER JOINTER RETURNER-C Nika Referring Provider Duran CASPER, VENEER JOINTER RETURNER-C Nika Other Provider [phone] Dr. Ruiz Gary Attending Provider Dr. Delvis Maldonado Primary Care Provider [phone] Dr. Delvis Maldonado Referring Provider LIGIA Garzon NP Attending Provider LIGIA Garzon NP Referring Provider LIGIA Garzon NP Other Provider [phone] Dr. Ruiz Gary Attending Provider [phone] Monisha Yoon Referring Unavailable Delvis Maldonado Primary Care Unavailable Monisha Yoon Attending Unavailable Delvis Maldonado Primary Care Unavailable VelFrida pearce Attending Unavailable Ricky Barberma Referring Unavailable Delvis Maldonado Primary Care Unavailable Monisha Yoon Attending Unavailable Frida Barber Attending Unavailable Ricky Barberma Referring Unavailable ClaudineDelvis camejo Primary Care Unavailable ClaudineDelvis camejo Primary Care Unavailable Delvis Maldonado Referring Unavailable Roof VENEER JOINTER RETURNERMike Attending Unavailable Monisha Yoon Attending Unavailable Monisha Yoon Referring Unavailable Delvis Maldonado Primary Care Unavailable Delvis Maldonado Primary Care Unavailable Roof Mike CASPER Attending Unavailable Roof Miek CASPER Referring Unavailable Allergies Allergy Classification Reported Allergen(s) Allergy Type Date of Onset Reaction(s) Facility (18 sources) rosuvastatin Drug Allergy 2 Myalgias and joint pain [facility] (1 source) rosuvastatin Drug Allergy 5 [facility] Repository Medications Current Medications Medication Drug Class(es) Dates Sig (Normalized) Sig (Original) finasteride 5 mg oral tablet (8 sources) 5-alpha Reductase Inhibitor Start: 07-24-2023 take 1 tablet by mouth once daily Finasteride (Proscar) 5 mg tablet Active 5 MG PO DAILY July 24, 2023 1:00am mecobalamin 1 mg chewable tablet (17 sources) Start: 08-15-2022 take 1000 ug by mouth once daily Mecobalamin (Vitamin B12) Active 1000 MCG PO DAILY August 15, 2022 1:00am Start: 08-15-2022 take 1000 ug by mout h once daily Mecobalamin (Vitamin B12) Active 1000 MCG PO DAILY August 15, 2022 12:00am NIFEdipine (1 source) Dihydropyridine Calcium Channel Danielle Start: 06-20-2022 End: 07-20-2022 NIFEdipine topical ointment 0.2% (CPD) Indications: Anal fissure by RECTAL route twice daily. Apply pea sized amount to anal opening twice a day. 30 g 1 06/20/2022 07/20/2022 Active Comment on above: by RECTAL route twic e daily. Apply pea sized amount to anal opening twice a day. tamsulosin hydrochloride 0.4 mg oral capsule (20 sources) alpha-Adrenergic Danielle Start: 06-15-2023 End: 09-18-2023 take 1 capsule by mouth at bedtime Tamsulosin (Flomax) 0.4 mg capsule Active 0.4 MG PO AT BEDTIME July 24, 2023 1:00am Start: 02-17-2016 End: 11-23-2021 take 0.4 mg by mouth once daily Tamsulosin Discontinued 0.4 MG PO DAILY June 02, 2020 9:35am November 23, 2021 11:47am Start: 02-17-2016 End: 06-02-2020 take 0.8 mg by mouth once daily Tamsulosin Discontinued 0.8 MG PO DAILY October 07, 2017 11:31am June 02, 2020 9:36am Completed/Discontinued Medications Medication Drug Class(es) Dates Sig (Normalized) Sig (Original) acetaminophen 325 mg / HYDROcodone bitartrate 5 mg oral tablet (20 sources) Opioid Agonist Start: 05-25-2023 End: 07-21-2023 take 1 tablet by mouth every six hours Hydrocodone-Acetami nophen Discontinued 1 TABLET PO EVERY 6 HOURS June 12, 2023 12:00am July 21, 2023 5:20pm Start: 05-25-2023 End: 07-21-2023 Start: 01-26-2020 End: 01-29-2020 take 1 tablet by mouth every six hours as needed Hydrocodone-Acetaminophen Discontinued 1 TABLET PO EVERY 6 HOURS NEEDED 06 18January 26, 2020 January 29, 2020 12:02am Start: 01-26-2020 End: 01-29-2020 Start: 12-26-2019 End: 12-31-2019 Hydrocodone-Acetaminophen Discontinued 1 EACH PO EVERY 4 HOURS NEEDED 02 02December 26, 2019 December 31, 2019 12:01am Start: 12-26-2019 End: 12-31-2019 Start: 03-22-2019 End: 03-29-2019 take 1 tablet by mouth every four hours as needed Hydrocodone-Acetaminophen Discontinued 1 TABLET PO EVERY 4 HOURS NEEDED 15 2 March 22, 2019 March 29, 2019 12:09am Start: 03-22-2019 End: 03-29-2019 acetaminophen 325 mg / oxyCODONE hydrochloride 5 mg oral tablet (20 sources) Opioid Agonist Start: 06-07-2023 End: 07-21-2023 take 1 tablet by mouth every six hours Oxycodone-Acetaminophen Discontinued 1 TABLET PO EVERY 6 HOURS June 12, 2023 12:00am July 21, 2023 5:21pm Start: 06-07-2023 End: 07-21-2023 Ascorbic Acid (5 sources) Vitamin C ascorbic acid (VITAMIN C ORAL) Take by mouth once daily. 0 Active Comment on above: Take by mouth once d aily. aspirin 81 mg delayed release oral tablet (20 sources) Platelet Aggregation Inhibitor, Nonsteroidal Anti-inflammatory Drug Start: 6 End: 3 take 1 tablet by mouth once daily Aspirin (Adult Aspirin Regimen) 81 mg tablet,delayed release (DR/EC) Discontinued 81 MG PO daily May 26, 2021 12:00am June 12, 2023 9:53am take 1 capsule by mouth once esther ly aspirin 81 mg cap Take 81 mg by mouth once daily. 0 Active Comment on above: Take 81 mg by mouth once daily. cholecalciferol 0.05 mg oral capsule (20 sources) Vitamin D Start: 9 End: take 4000 [IU] by mouth once daily Cholecalciferol (Vitamin D3) Active 4000 UNIT PO DAILY August 15, 2022 11:17am Start: 05-04-2019 End: 08-15-2022 take 2000 [IU] by mouth once daily Cholecalciferol (Vitamin D3) Discontinued 2000 UNIT PO DAILY December 25, 2019 1:27pm August 15, 2022 11:17am cholecalciferol, vitamin D3, (VITAMIN D3 ORAL) (5 sources) cholecalciferol, vitamin D3, (VITAMIN D3 ORAL) Take by mouth once daily. 0 Active Comment on above: Take by mouth once d aily. ciprofloxacin 500 mg oral tablet (20 sources) Quinolone Antimicrobial Start: 11-08-2 023 End: 024 take 1 tablet by mouth twice daily Ciprofloxacin Hcl (Cipro) 500 mg tablet Discontinued 500 MG PO TWICE A DAY July 24, 2023 1:00am September 18, 2023 9:27am Start: 12-26-2019 End: 06-02-2020 take 500 mg by mouth twice daily Ciprofloxacin Hcl Discontinued 500 MG PO TWICE A DAY December 26, 2019 12:00am June 02, 2020 9:36am Start: 03-13-2019 End: 11-12-2019 take 500 mg by mouth twice daily Ciprofloxacin Hcl Discontinued 500 MG PO TWICE A DAY March 13, 2019 12:00am November 12, 2019 12:18pm ezetimibe 10 mg oral tablet (20 sources) Dietary Cholesterol Absorption Inhibitor Start: 11-23-2021 End: 07-25-2022 take 1 tablet by mouth once daily Ezetimibe (Zetia) 10 mg tablet Discontinued 10 MG PO DAILY November 23, 2021 1:00am July 25, 2022 10:54am Start: 11-12-2019 End: 10-16-2021 take 10 mg by mouth at bedtime Ezetimibe Discontinued 10 MG PO AT BEDTIME December 25, 2019 1:25pm October 16, 2021 3:06pm On Hold: 05/26/2021 folic acid 1 mg oral tablet (18 sources) Start: 10-07-2017 End: 11-12-2019 take 1 mg by mouth once daily Folic Acid Discontinued 1 MG PO daily October 07, 2017 1:00am November 12, 2019 12:18pm 24 hr hydroCHLOROthiazide 12.5 mg / metoprolol succinate 25 mg extended release oral tablet (18 sources) Thiazide Diuretic, beta-Adrenergi c Danielle Start: 02-17-2016 End: 10-07-2017 Metoprolol Gonzalez-Hydrochlorothia z Discontinued 25 MG February 17, 2016 12:00am October 07, 2017 9:58am Start: 02-17-2016 End: 10-07-2017 hydroxychloroquine sulfate 200 mg oral tablet (20 sources) Antimalarial, Antirheumatic Agent Start: 06-02-2020 End: 05-26-2021 take 1 tablet by mouth once daily PLAQUENIL 200 mg tablet Take 200 mg by mouth once daily. 0 03/25/2022 Active Start: 06-02-2020 End: 05-26-2021 take 200 mg by mouth twice daily Hydroxychloroquine Discontinued 200 MG PO TWICE A DAY June 02, 2020 12:00am May 26, 2021 1:08pm Comment on above: Take 200 mg by mouth once daily. levothyroxine sodium 0.05 mg oral tablet (18 sources) l-Thyroxine Start: 0 End: 2 take 50 ug by mouth once daily Levothyroxine Discontinued 50 MCG PO DAILY December 25, 2019 12:00am October 16, 2021 3:06pm metFORMIN hydrochloride 850 mg oral tablet (20 sources) Biguanide Start: End: take 1700 mg by mouth once daily Metformin Discontinued 1700 MG PO DAILY September 23, 2020 1:00am May 26, 2021 1:08pm Start: 09-23-2020 End: 05-26-2021 take 850 mg by mouth at bedtime Metformin Discontinued 850 MG PO AT BEDTIME September 23, 2020 1:00am May 26, 2021 1:08pm Start: 12-25-2019 End: 08-24-2020 take 850 mg by mouth at bedtime Metformin Discontinued 850 MG PO AT BEDTIME December 25, 2019 12:00am August 24, 2020 9:54am Start: 12-25-2019 End: 08-24-2020 Start: 02-17-2016 End: 10-07-2017 take 1 tablet by mouth in the evening Metformin Discontinued 0 PO .COMPLEX October 02, 2017 1:00am October 07, 2017 11:32am 850mg (2 tabs) PO 1 tab in the AM & 1 tab in the PM Start: 02-17-2016 End: 10-07-2017 take 850 mg by mouth once daily Metformin Discontinued 850 MG PO DAILY February 17, 2016 12:00am October 02, 2017 2:23pm 24 hr metoprolol succinate 25 mg extended release oral tablet (20 sources) beta-Adrenergic Danielle Start: 10-07-2017 End: 06-24-2023 Metoprolol Succinate Discontinued 0 .ROUTE .COMPLEX July 13, 2022 8:34am June 12, 2023 9:53am TAKE ONE-HALF (1/2) TABLET DAILY FOR BLOOD PRESSURE Start: 10-07-2017 End: 07-13-2022 take 12.5 mg by mouth once daily Metoprolol Succinate Discontinued 12.5 MG PO DAILY October 17, 2021 11:03am July 13, 2022 8:34am Comment on above: Take 12.5 mg by mout h once daily. naproxen 500 mg oral tablet (18 sources) Nonsteroidal Anti-inflammatory Drug Start: 03-22-20 End: 11-12-19 take 500 mg by mouth twice daily as needed Naproxen Discontinued 500 MG PO TWICE DAILY NEEDED March 22, 2019 12:00am November 12, 2019 12:19pm predniSONE 20 mg oral tablet (18 sources) Start: 01-26-20 End: 06-02-20 take 40 mg by mouth once daily at mealtime Prednisone Discontinued 40 MG PO DAILY January 26, 2020 12:00am June 02, 2020 9:36am With food rosuvastatin calcium 10 mg oral tablet (20 sources) HMG-CoA Reductase Inhibitor Start: 02-17-20 16 End: 06-15-20 19 take 10 mg by mouth at bedtime Rosuvastatin Discontinued 10 MG PO AT BEDTIME May 12, 2018 5:32pm June 15, 2019 10:17am Start: 02-17-2016 End: 06-15-2019 ticagrelor 90 mg oral tablet (20 sources) Start: 02-17-2016 End: 05-26-2021 take 90 mg by mouth twice daily Ticagrelor Discontinued 90 MG PO TWICE A DAY 180 April 27, 2021 2:01pm May 26, 2021 1:27pm [id number]-[id number]- OREG-CAPRYL ORAL (5 sources) [id number] VE- OREG-CAPRYL ORAL Take by mouth once daily. 0 Active Comment on above: Take by mouth once d aily. valACYclovir 1000 mg oral tablet (18 sources) Herpesvirus Nucleoside Analog DNA Polymerase Inhibitor, Herpes Simplex Virus Nucleoside Analog DNA Polymerase Inhibitor, Herpes Zoster Virus Nucleoside Analog DNA Polymerase Inhibitor Start: 01-26-2020 End: 06-02-2020 take 1000 mg by mouth three times daily Valacyclovir Discontinued 1000 MG PO THREE TIMES A DAY January 26, 2020 12:00am June 02, 2020 9:35am Problems Active Problems Problem Classification Problem Date Documented Da te Episodic/Chronic Abdominal pain (20 sources) Right upper quadrant pain; Translations: [Right upper quadrant pain] 05-22-2020 Episodic Acute and unspecified renal failure (20 sources) Injury of kidney; Translations: [Acute kidney failure, unspecified] 06-12-2023 Episodic Anal and rectal conditions (5 sources) Anorectal pain; Translations: [Other specified diseases of anus and rectum] Onset: 07-31-2022 Episodic Aortic; peripheral; and visceral artery aneurysms (18 sources) Aortic root dilatation; Translations: [Thoracic aortic ectasia] 06-02-2020 Chronic Bacterial infection; unspecified site (15 sources) Bacteremia caused by Gram-negative bacteria; Translations: [Bacteremia] 07-23-2023 Episodic Calculus of urinary tract (20 sources) Ureteric colic; Translations: [Unspecified renal colic] 06-15-2023 Episodic Chronic kidney disease (19 sources) Chronic kidney disease; Translations: [Chronic kidney disease, unspecified] Onset: 04-13-2025 09-26-2020 Chronic Coronary atherosclerosis and other heart disease (20 sources) History of non-ST segment elevation myocardial infarction; Translations: [Old myocardial infarction] Onset: 12-16-2015 11-22-2021 Chronic Diabetes mellitus with complications (1 source) Type 2 diabetes mellitus with diabetic chronic kidney disease; Translations: [Type 2 diabetes mellitus with diabetic chronic kidney disease] Onset: 01-06-2025 Chronic Disorders of lipid metabolism (20 sources) Hyperlipidemia; Translations: [Hyperlipidemia, unspecified] Onset: 10-19-2024 Chronic Essential hypertension (20 sources) Essential hypertension; Translations: [Essential (primary) hypertension] Chronic Genitourinary symptoms and ill-defined conditions (10 sources) History of renal insufficiency; Translations: [Personal history of other diseases of urinary system] 07-07-2023 Episodic Nonspecific chest pain (12 sources) Chest wall pain; Translations: [Other chest pain] 06-02-2023 Episodic Suzie-; endo-; and myocarditis; cardiomyopathy (except that caused by tuberculosis or sexually transmitted disease) (20 sources) Pericardial effusion; Translations: [Pericardial effusion] 06-12-2023 Episodic Pleurisy; pneumothorax; pulmonary collapse (20 sources) Pleural effusion; Translations: [Pleural effusion, not elsewhere classified] 06-12-2023 Episodic Rheumatoid arthritis and related disease (1 source) Inflammatory polyarthropathy; Translations: [Inflammatory polyarthropathy] Onset: 01-18-2025 Chronic Past or Other Problems Problem Classification Problem Date Documented Da te Episodic/Chronic Coronary atherosclerosis and other heart disease (9 sources) Presence of coronary angioplasty implant and graft; Translations: [Percutaneous transluminal coronary angioplasty status] Onset: 12-25-2015 Episodic Results Test Name Value Interpretation Reference Range Facility Microalb:Creat Ratio,Random URon 03-05-2025 MALB:CREAT 119.4 mg/g CRE Normal [facility] Comment on above: Result Comment: AMENDED REPORT 03/05/25 0743 MALB:CREAT previously reported as: 1194.4 mg/g CRE Performed By: #### L 500.4100, L500.3400 #### [facility] [address] [place], [address] CBC W/Diff, Automatedon 12-16 Absolute Lymph 0.63 X10 3/uL Low 0.83-4.51 [facility] Comment on above: Performed By: #### L 500.4100, L500.3400 #### [facility] [address] [place], [address] Absolute Neut 4.8 X10 3/uL Normal 2.0-7.7 [facility] Comment on above: Performed By: #### L 500.4100, L500.3400 #### [facility] [address] [place], [address] Basophils/100 WBC (Bld) 0.7 % Normal 0-1 [facility] Comment on above: Performed By: #### L 500.4100, L500.3400 #### [facility] [address] [place], [address] Eosinophils/100 WBC (Bld) 1.5 % Normal 0-5 [facility] Comment on above: Performed By: #### L 500.4100, [id number] #### [facility] [address] [place], [address] Erythrocyte distribution width (RBC) [Ratio] 13.9 % Normal 11.6-14.6 [facility] Comment on above: Performed By: #### L 500.4100, [id number] #### [facility] [address] [place], [address] Hematocrit (Bld) [Volume fraction] 45.9 % Normal 40-54 [facility] Comment on above: Performed By: #### L 500.4100, [id number] #### [facility] [address] [place], [address] Hemoglobin (Bld) [Mass/Vol] 15.0 g/dL Normal 13.0-16.5 [facility] Comment on above: Performed By: #### L 500.4100, [id number] #### [facility] [address] [place], [address] IG% 0.300 Normal 0.0-0.9 [facility] Comment on above: Result Comment: IG% - Immature Granulocytes (promyelocytes, myelocytes and metamyelocytes) > 1% indicates that a LEFT SHIFT is Present. Performed By: #### L 500.4100, L500.3400 #### [facility] [address] [place], [address] Lymphocytes/100 WBC (Bld) 10.5 % Low 19-41 [facility] Comment on above: Performed By: #### L 500.4100, [id number] #### [facility] [address] [place], [address] MCH (RBC) [Entitic mass] 29.9 pg Normal 27.0-32.0 [facility] Comment on above: Performed By: #### L 500.4100, [id number] #### [facility] [address] [place], [address] MCHC (RBC) [Mass/Vol] 32.7 g/dL Normal 32-36 [facility] Comment on above: Performed By: #### L 500.4100, [id number] #### [facility] [address] [place], [address] MCV (RBC) [Entitic vol] 91.6 fL Normal 80-94 [facility] Comment on above: Performed By: #### L 500.4100, [id number] #### [facility] [address] [place], [address] Monocytes/100 WBC (Bld) 7.2 % Normal 0-10 [facility] Comment on above: Performed By: #### L 500.4100, [id number] #### [facility] [address] [place], [address] Neutrophils/100 WBC (Bld) 79.8 % High 47-70 [facility] Comment on above: Performed By: #### L 500.4100, [id number] #### [facility] [address] [place], [address] Nucleated RBC (Bld) [#/Vol] 0 10*3/uL Normal 0-5 [facility] Comment on above: Performed By: #### L 500.4100, [id number] #### [facility] [address] [place], [address] Platelet mean volume (Bld) [Entitic vol] 10.5 fL Normal 6.2-12.0 [facility] Comment on above: Performed By: #### L 500.4100, [id number] #### [facility] [address] [place], [address] Platelets (Bld) [#/Vol] 162 10*3/uL Normal 150-450 [facility] Comment on above: Performed By: #### L 500.4100, [id number] #### [facility] [address] [place], [address] RBC (Bld) [#/Vol] 5.01 10*6/uL Normal 4.6-6.2 [facility] Comment on above: Performed By: #### L 500.4100, [id number] #### [facility] [address] [place], [address] RDW SD 46.8 fl High 35.1-43.9 [facility] Comment on above: Performed By: #### L 500.4100, [id number] #### [facility] [address] [place], [address] WBC (Bld) [#/Vol] 6.0 10*3/uL Normal 4.4-11.0 [facility] Comment on above: Performed By: #### L 500.4100, [id number] #### [facility] [address] [place], [address] Comprehensive Metabolic Prof ilon 01-12-2025 Albumin [Mass/Vol] 4.1 g/dL Normal 3.4-4.8 [facility] Comment on above: Performed By: #### L 500.4100, [id number] #### [facility] [address] [place], [address] Albumin/Globulin [Mass ratio] 1.5 {ratio} Normal 0.9-2.4 [facility] Comment on above: Performed By: #### L 500.4100, [id number] #### [facility] [address] [place], [address] ALK PHOS 66 U/L Normal 40-129 [facility] Comment on above: Performed By: #### L 500.4100, [id number] #### [facility] [address] [place], [address] ALT [Catalytic activity/Vol] 14 U/L Normal <=46 [facility] Comment on above: Performed By: #### L 500.4100, [id number] #### [facility] [address] [place], [address] AST [Catalytic activity/Vol] 23 U/L Normal <=37 [facility] Comment on above: Performed By: #### L 500.4100, [id number] #### [facility] [address] [place], [address] Bilirubin [Mass/Vol] 0.48 mg/dL Normal 0.00-1.30 [facility] Comment on above: Performed By: #### L 500.4100, [id number] #### [facility] [address] [place], [address] BUN/CRE 12.3 RATIO Normal 10-20 [facility] Comment on above: Performed By: #### L 500.4100, [id number] #### [facility] [address] [place], [address] Calcium [Mass/Vol] 9.0 mg/dL Normal 7.6-11.0 [facility] Comment on above: Performed By: #### L 500.4100, [id number] #### [facility] [address] [place], [address] Chloride [Moles/Vol] 104 mmol/L Normal 98-108 [facility] Comment on above: Performed By: #### L 500.4100, [id number] #### [facility] [address] [place], [address] CO2 [Moles/Vol] 22.4 mmol/L Normal 21.0-32.0 [facility] Comment on above: Performed By: #### L 500.4100, [id number] #### [facility] [address] [place], [address] Creatinine [Mass/Vol] 2.43 mg/dL High 0.70-1.20 [facility] Comment on above: Performed By: #### L 500.4100, [id number] #### [facility] [address] [place], [address] GAP 12 Normal 5-15 [facility] Comment on above: Performed By: #### L 500.4100, [id number] #### [facility] [address] [place], [address] GFR/1.73 sq M.predicted among non-blacks MDRD (S/P/Bld) [Vol rate/Area] 27 mL/min/{1.73_m2} Low >60 [facility] Comment on above: Result Comment: mL/m in/1.73m2 CKD-EPI Creatinine Equation (2020) Performed By: #### L 500.4100, [id number] #### [facility] [address] [place], [address] Globulin (S) [Mass/Vol] 2.7 g/dL Normal 2.2-4.2 [facility] Comment on above: Performed By: #### L 500.4100, [id number] #### [facility] [address] [place], [address] Glucose [Mass/Vol] 167 mg/dL High 70-99 [facility] Comment on above: Performed By: #### L 500.4100, L500.3400 #### [facility] [address] [place], [address] Potassium [Moles/Vol] 4.5 mmol/L Normal 3.3-5.1 [facility] Comment on above: Result Comment: Hemo lysis present, Results??could be affected. ?? Performed By: #### L 500.4100, L500.3400 #### [facility] [address] [place], [address] Sodium [Moles/Vol] 139 mmol/L Normal 133-145 [facility] Comment on above: Performed By: #### L 500.4100, L500.3400 #### [facility] [address] [place], [address] T PROT 6.9 g/dL Normal 5.9-8.4 [facility] Comment on above: Performed By: #### L 500.4100, L500.3400 #### [facility] [address] [place], [address] Urea nitrogen [Mass/Vol] 30 mg/dL High 4-19 [facility] Comment on above: Performed By: #### L 500.4100, L500.3400 #### [facility] [address] [place], [address] CBC-Complete Blood Cnt No Di ffon 01-02-2025 Erythrocyte distribution width (RBC) [Ratio] 13.8 % Normal 11.6-14.6 [facility] Comment on above: Performed By: #### L 100.0500, L502.0250, L500.3600, L509.1000 #### [facility] [address] [place], [address] Hematocrit (Bld) [Volume fraction] 46.9 % Normal 40-54 [facility] Comment on above: Performed By: #### L 100.0500, L502.0250, L500.3600, L509.1000 #### [facility] [address] [place], [address] Hemoglobin (Bld) [Mass/Vol] 15.3 g/dL Normal 13.0-16.5 [facility] Comment on above: Performed By: #### L 100.0500, L502.0250, L500.3600, L509.1000 #### [facility] [address] [place], [address] MCH (RBC) [Entitic mass] 29.6 pg Normal 27.0-32.0 [facility] Comment on above: Performed By: #### L 100.0500, L502.0250, L500.3600, L509.1000 #### [facility] [address] [place], [address] MCHC (RBC) [Mass/Vol] 32.6 g/dL Normal 32-36 [facility] Comment on above: Performed By: #### L 100.0500, L502.0250, L500.3600, L509.1000 #### [facility] [address] [place], [address] MCV (RBC) [Entitic vol] 90.7 fL Normal 80-94 [facility] Comment on above: Performed By: #### L 100.0500, L502.0250, L500.3600, L509.1000 #### [facility] [address] [place], [address] Platelet mean volume (Bld) [Entitic vol] 10.4 fL Normal 6.2-12.0 [facility] Comment on above: Performed By: #### L 100.0500, L502.0250, L500.3600, L509.1000 #### [facility] [address] [place], [address] Platelets (Bld) [#/Vol] 153 10*3/uL Normal 150-450 [facility] Comment on above: Performed By: #### L 100.0500, L502.0250, L500.3600, L509.1000 #### [facility] [address] [place], [address] RBC (Bld) [#/Vol] 5.17 10*6/uL Normal 4.6-6.2 [facility] Comment on above: Performed By: #### L 100.0500, L502.0250, L500.3600, L509.1000 #### [facility] [address] [place], [address] RDW SD 46.1 fl High 35.1-43.9 [facility] Comment on above: Performed By: #### L 100.0500, L502.0250, L500.3600, L509.1000 #### [facility] [address] [place], [address] WBC (Bld) [#/Vol] 4.3 10*3/uL Low 4.4-11.0 [facility] Comment on above: Performed By: #### L 100.0500, L502.0250, L500.3600, L509.1000 #### [facility] [address] [place], [address] PTHINon 01-02-2025 PTH 91 pg/mL High 11-61 [facility] Comment on above: Performed By: #### L 100.0500, L502.0250, L500.3600, L509.1000 #### [facility] [address] [place], [address] Renal Profileon 01-02-2025 Albumin [Mass/Vol] 4.2 g/dL Normal 3.4-4.8 [facility] Comment on above: Performed By: #### L 500.4100, L500.3400 #### [facility] [address] [place], [address] BUN/CRE 9.2 RATIO Low 10-20 [facility] Comment on above: Performed By: #### L 500.4100, L500.3400 #### [facility] [address] [place], [address] Calcium [Mass/Vol] 9.0 mg/dL Normal 7.6-11.0 [facility] Comment on above: Performed By: #### L 500.4100, L500.3400 #### [facility] [address] [place], [address] Chloride [Moles/Vol] 104 mmol/L Normal 98-108 [facility] Comment on above: Performed By: #### L 500.4100, L500.3400 #### [facility] [address] [place], [address] CO2 [Moles/Vol] 22.6 mmol/L Normal 21.0-32.0 [facility] Comment on above: Performed By: #### L 500.4100, L500.3400 #### [facility] [address] [place], [address] Creatinine [Mass/Vol] 2.37 mg/dL High 0.70-1.20 [facility] Comment on above: Performed By: #### L 500.4100, L500.3400 #### [facility] [address] [place], [address] GAP 11 Normal 5-15 [facility] Comment on above: Performed By: #### L 500.4100, L500.3400 #### [facility] [address] [place], [address] GFR/1.73 sq M.predicted among non-blacks MDRD (S/P/Bld) [Vol rate/Area] 27 mL/min/{1.73_m2} Low >60 [facility] Comment on above: Result Comment: mL/m in/1.73m2 CKD-EPI Creatinine Equation (2020) Performed By: #### L 500.4100, L500.3400 #### [facility] [address] [place], [address] Glucose [Mass/Vol] 127 mg/dL High 70-99 [facility] Comment on above: Performed By: #### L 500.4100, L500.3400 #### [facility] [address] [place], [address] Potassium [Moles/Vol] 4.4 mmol/L Normal 3.3-5.1 [facility] Comment on above: Result Comment: Hemo lysis present, Results??could be affected. ?? Performed By: #### L 500.4100, L500.3400 #### [facility] [address] [place], [address] Sodium [Moles/Vol] 138 mmol/L Normal 133-145 [facility] Comment on above: Performed By: #### L 500.4100, L500.3400 #### [facility] [address] [place], [address] Urea nitrogen [Mass/Vol] 22 mg/dL High 4-19 [facility] Comment on above: Performed By: #### L 500.4100, L500.3400 #### [facility] [address] [place], [address] Cardiology Visit Reporton Cardiology Visit Report [facility] [address] [place] [address] OFFICE VISIT Date of Service: 09/30/24 MR#: [id number] Acct: [id number] Name: JOHN ARRIOLA Rep #: [id number] : 1945 Provider: LIGIA garvey Age/Sex: 78/M Location: [facility] Status: Signed HPI HPI History of Present Illness Details: This is a 78-year-old nondiabetic male who presents to the office today for a cardiovascular outpatient follow-up. He has a history of hypertension, hypercholesterolemia, coronary artery disease status post angioplasty and stenting to the mid LAD and left circumflex in August 2010 at an outside facility in [place]. Patient returned in November 2015 underwent a stress test which was negative for inducible ischemia by myocardial perfusion imaging, but had some subtle inferior ST segment changes. Subsequent to that on 12/25/15 the patient presented to an outside facility in [place] with substernal chest pain was found to have a non-STEMI. The patient underwent repeat left heart catheterization and received a drug-eluting 3.0 X12 resolute stent to the proximal LAD. It was noted that the mid LAD stent was patent, and in a 50% stenosis of his PDA. No additional evaluation was performed. 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 He also has a history of obstructive sleep apnea with CPAP therapy. Patient was hospitalized in May 2023 after surgery for left renal stones. During that time he had noticed bilateral lower extremity edema. He underwent an echocardiogram on 06/12/2023 which de monstrated an ejection fraction of 55%, posterior hypokinesis, and small anterior pericardial effusion with possible organized clot. A cardiac MRI from 11/19/2023 demonstrated trivial pericardial LGE. Overall the study does not support a diagnosis of constrictive pericarditis. He denies chest, arm, jaw, or neck discomfort. He denies palpitations. He denies bilateral lower extremity edema. He denies claudication. He denies shortness of breath with activity, shortness of breath at rest, orthopnea, or PND. He denies chronic cough. He denies significant, sudden weight gain. He denies lightheadedness, dizziness, near-syncope, or syncope. He denies blood in urine, blood in stool, or epistaxis. He denies fever with chills. He denies myalgia. He denies fatigue. His exercise level has remained stable. 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 Is patient in pain?: No Allergies rosuvastatin (From Crestor) Adverse Reaction (Severe, Verified 09/30/24 10:10) Myalgias and joint pain Medications ???Medication ???Instructions ???Recorded ???Confirmed ???Type hydroxychloroquine 200 mg tablet 200 mg PO QHS RHEUMATOID ARTHRITIS 05/26/21 09/30/24 History cholecalciferol (vitamin D3) 50 4,000 unit PO DAILY SUPPLEMENT 08/15/22 09/30/24 History mcg (2,000 unit) capsule mecobalamin (vitamin B12) 1,000 1,000 mcg PO DAILY SUPPLEMENT 08/15/22 09/30/24 History mcg chewable tablet aspirin 81 mg tablet,delayed 81 mg PO QHS HEART HEALTH 06/12/23 09/30/24 History release (Adult Aspirin Regimen) finasteride 5 mg tablet (Proscar) 5 mg PO DAILY #90 tabs 07/24/23 09/30/24 Rx tamsulosin 0.4 mg capsule (Flomax) 0.4 mg PO QHS #90 caps 07/24/23 09/30/24 Rx metoprolol succinate 25 mg 25 mg PO DAILY for blood pressure 08/27/24 09/30/24 Rx tablet,extended release 24 hr #90 TABLETS Ejection fraction %: 55 Have you fallen in the past year?: No [facility] Medical History Mass of anus History of non-ST elevation myocardial infarction (NSTEMI) (12/2015) Tubular adenoma of colon (09/26/20) Chronic kidney disease (CKD) Plantar fasciitis Essential (primary) hypertension Calculus of proximal right ureter DEENA (acute kidney injury) Hypothyroidism Obstructive sleep apnea Dilated aortic root Atherosclerosis of [place] coronary artery of [place] heart without angina pectoris Arthritis BPH (benign prostatic hyperplasia) Type 2 diabetes mellitus without complications Hyperlipidemia Surgical History Kidney stones (07/2023) History of colonoscopy (09/26/20) History of colonoscopy (2007) History of esophagogastroduodenoscopy (EGD) (2005) History of ureter stent (12/2019) History of coronary artery stent placement (12/25/15) History of hemorrhoidectomy History of nasal septoplasty History of left heart catheterization (12/2015) Family History Mother CAD (coronary artery (more content not included)... Normal [facility] Lipid Profileon 09-28-2024 Cholesterol [Mass/Vol] 235 mg/dL High 200 [facility] Comment on above: Result Comment: <200 mg/dL Desirable 200-240 mg/dL Borderline >240 mg/dL High Risk Performed By: #### L 500.4100, L500.3400 #### [facility] [address] [place], [address] Cholesterol in HDL [Mass/Vol] 79 mg/dL Normal [facility] Comment on above: Result Comment: The drugs N-Acetylcysteine and Metamizole may falsely depress this assay. Reference Range HDL <40 mg/dL Low HDL Cholesterol HDL >or= 60 mg/dL High HDL Cholesterol Performed By: #### L 500.4100, L500.3400 #### [facility] [address] [place], [address] Cholesterol in LDL [Mass/Vol] 143 mg/dL High 0-130 [facility] Comment on above: Performed By: #### L 500.4100, L500.3400 #### [facility] [address] [place], [address] Cholesterol in VLDL [Mass/Vol] 13 mg/dL Normal 5-40 [facility] Comment on above: Performed By: #### L 500.4100, L500.3400 #### [facility] [address] [place], [address] Triglyceride [Mass/Vol] 66 mg/dL Normal [facility] Comment on above: Result Comment: The drugs N-Acetylcysteine and Metamizole may falsely depress this assay. Serum Triglycerides Reference Interval Normal <150 mg/dL Borderline high 150 - 199 mg/dL High 200 - 499 mg/dL Very High > or = 500 mg/dL Performed By: #### L 500.4100, L500.3400 #### [facility] [address] [place], [address] Liver Profileon 09-28-2024 Albumin [Mass/Vol] 3.9 g/dL Normal 3.2-5.0 [facility] Comment on above: Performed By: #### L 500.4100, L500.3400 #### [facility] [address] [place], [address] ALK P 94 U/L Normal 45-117 [facility] Comment on above: Performed By: #### L 500.4100, L500.3400 #### [facility] [address] [place], [address] ALT [Catalytic activity/Vol] 21 U/L Normal 16-61 [facility] Comment on above: Performed By: #### L 500.4100, L500.3400 #### [facility] [address] [place], [address] AST [Catalytic activity/Vol] 14 U/L Low 15-37 [facility] Comment on above: Performed By: #### L 500.4100, L500.3400 #### [facility] [address] [place], [address] Bilirubin [Mass/Vol] 0.40 mg/dL Normal 0.20-1.00 [facility] Comment on above: Result Comment: For patients on eltrombopag therapy, use of Dimension [place] TBIL is not recommended. Performed By: #### L 500.4100, L500.3400 #### [facility] [address] [place], [address] Bilirubin.direct [Mass/Vol] 0.10 mg/dL Normal 0.00-0.30 [facility] Comment on above: Performed By: #### L 500.4100, L500.3400 #### [facility] [address] [place], [address] Globulin (S) [Mass/Vol] 3.6 g/dL Normal 2.2-4.2 [facility] Comment on above: Performed By: #### L 500.4100, L500.3400 #### [facility] [address] [place], [address] T PROT 7.5 g/dL Normal 6.4-8.2 [facility] Comment on above: Performed By: #### L 500.4100, L500.3400 #### [facility] [address] [place], [address] CBC-Complete Blood Cnt No Di ffon 08-26-2024 Erythrocyte distribution width (RBC) [Ratio] 13.3 % Normal 11.6-14.6 [facility] Comment on above: Order Comment: PER P ANDREIA YOON ORDER Performed By: #### L 502.0250, L100.0500, L500.3600 #### [facility] [address] [place], [address] Hematocrit (Bld) [Volume fraction] 47.3 % Normal 40-54 [facility] Comment on above: Order Comment: PER P Rishi-KIM YOON ORDER Performed By: #### L 502.0250, L100.0500, L500.3600 #### [facility] [address] [place], [address] Hemoglobin (Bld) [Mass/Vol] 14.9 g/dL Normal 13.0-16.5 [facility] Comment on above: Order Comment: PER P ANDREIA YOON ORDER Performed By: #### L 502.0250, L100.0500, L500.3600 #### [facility] [address] [place], [address] MCH (RBC) [Entitic mass] 29.2 pg Normal 27.0-32.0 [facility] Comment on above: Order Comment: PER P Rishi-KIM YOON ORDER Performed By: #### L 502.0250, L100.0500, L500.3600 #### [facility] [address] [place], [address] MCHC (RBC) [Mass/Vol] 31.5 g/dL Low 32-36 [facility] Comment on above: Order Comment: PER P T-JUST CAR ORDER Performed By: #### L 502.0250, L100.0500, L500.3600 #### [facility] [address] [place], [address] MCV (RBC) [Entitic vol] 92.6 fL Normal 80-94 [facility] Comment on above: Order Comment: PER P T-JUST CAR ORDER Performed By: #### L 502.0250, L100.0500, L500.3600 #### [facility] [address] [place], [address] Platelet mean volume (Bld) [Entitic vol] 10.2 fL Normal 6.2-12.0 [facility] Comment on above: Order Comment: PER P T-KIM CAR ORDER Performed By: #### L 502.0250, L100.0500, L500.3600 #### [facility] [address] [place], [address] Platelets (Bld) [#/Vol] 171 10*3/uL Normal 150-450 [facility] Comment on above: Order Comment: PER P T-KIM CAR ORDER Performed By: #### L 502.0250, L100.0500, L500.3600 #### [facility] [address] [place], [address] RBC (Bld) [#/Vol] 5.11 10*6/uL Normal 4.6-6.2 [facility] Comment on above: Order Comment: PER P T-JUST CAR ORDER Performed By: #### L 502.0250, L100.0500, L500.3600 #### [facility] [address] [place], [address] RDW SD 45.4 fl High 35.1-43.9 [facility] Comment on above: Order Comment: PER P T-JUST CAR ORDER Performed By: #### L 502.0250, L100.0500, L500.3600 #### [facility] [address] [place], [address] WBC (Bld) [#/Vol] 5.5 10*3/uL Normal 4.4-11.0 [facility] Comment on above: Order Comment: PER P T-KIM YOON ORDER Performed By: #### L 502.0250, L100.0500, L500.3600 #### [facility] [address] [place], [address] Microalb:Creat Ratio,Random URon 08-26-2024 Creatinine [Mass/Vol] 55.50 mg/dL Normal NO RAN GE EST. [facility] Comment on above: Order Comment: PER P T-KIM YOON ORDER Performed By: #### L 502.0250, L100.0500, L500.3600 #### [facility] [address] [place], [address] MALB:CRE 82.5 mg/g CRE High <30 mg/g CRE [facility] Comment on above: Order Comment: PER P T-KIM YOON ORDER Performed By: #### L 502.0250, L100.0500, L500.3600 #### [facility] [address] [place], [address] MICROALBUMIN,UR 45.8 mg/L Normal NO RANGE EST. [facility] Comment on above: Order Comment: PER P T-KIM CAR ORDER Performed By: #### L 502.0250, L100.0500, L500.3600 #### [facility] [address] [place], [address] Renal Profileon 08-26-2024 Albumin [Mass/Vol] 3.8 g/dL Normal 3.2-5.0 [facility] Comment on above: Order Comment: PER P T-KIM YOON ORDER Performed By: #### L 502.0250, L100.0500, L500.3600 #### [facility] [address] [place], [address] BUN/CRE 10.6 RATIO Normal 10-20 [facility] Comment on above: Order Comment: PER P Rishi-KIM YOON ORDER Performed By: #### L 502.0250, L100.0500, L500.3600 #### [facility] [address] [place], [address] CA,Total 9.2 mg/dL Normal 8.5-10.1 [facility] Comment on above: Order Comment: PER P Rishi-KIM YOON ORDER Performed By: #### L 502.0250, L100.0500, L500.3600 #### [facility] [address] [place], [address] Chloride [Moles/Vol] 107 mmol/L Normal 98-107 [facility] Comment on above: Order Comment: PER P Rishi-KIM YOON ORDER Performed By: #### L 502.0250, L100.0500, L500.3600 #### [facility] [address] [place], [address] CO2 [Moles/Vol] 31.0 mmol/L Normal 21.0-32.0 [facility] Comment on above: Order Comment: PER P Rishi-KIM YOON ORDER Performed By: #### L 502.0250, L100.0500, L500.3600 #### [facility] [address] [place], [address] Creatinine [Mass/Vol] 2.46 mg/dL High 0.70-1.30 [facility] Comment on above: Order Comment: PER P Rishi-KIM YOON ORDER Result Comment: The validity of the calculated GFR GFRAA in patients over 70 years has not been determined. Clinical correlation is essential. Performed By: #### L 502.0250, L100.0500, L500.3600 #### [facility] [address] [place], [address] EST GFR - AA 33 mL/min Low >60 [facility] Comment on above: Order Comment: PER Ke YOON ORDER Result Comment: Afri can [place] GFR Calc Performed By: #### L 502.0250, L100.0500, L500.3600 #### [facility] [address] [place], [address] GFR/1.73 sq M.predicted among non-blacks MDRD (S/P/Bld) [Vol rate/Area] 27 mL/min/{1.73_m2} Low >60 [facility] Comment on above: Order Comment: PER Ke YOON ORDER Result Comment: Non- GFR Calc Performed By: #### L 502.0250, L100.0500, L500.3600 #### [facility] [address] [place], [address] Glucose [Mass/Vol] 110 mg/dL High 74-106 [facility] Comment on above: Order Comment: PER Ke YOON ORDER Result Comment: Fast ing Glucose result from 100 to 125 mg/dL suggests IMPAIRED HOMEOSTASIS per A.D.A. criteria. Performed By: #### L 502.0250, L100.0500, L500.3600 #### [facility] [address] [place], [address] Phosphate [Mass/Vol] 3.4 mg/dL Normal 2.5-4.9 [facility] Comment on above: Order Comment: PER Ke YOON ORDER Performed By: #### L 502.0250, L100.0500, L500.3600 #### [facility] [address] [place], [address] Potassium [Moles/Vol] 4.7 mmol/L Normal 3.5-5.1 [facility] Comment on above: Order Comment: PER Ke YOON ORDER Performed By: #### L 502.0250, L100.0500, L500.3600 #### [facility] [address] [place], [address] Sodium [Moles/Vol] 139 mmol/L Normal 136-145 [facility] Comment on above: Order Comment: PER P ANDREIA YOON ORDER Performed By: #### L 502.0250, L100.0500, L500.3600 #### [facility] [address] [place], [address] Urea nitrogen [Mass/Vol] 26 mg/dL High 7-18 [facility] Comment on above: Order Comment: PER P ANDREIA YOON ORDER Performed By: #### L 502.0250, L100.0500, L500.3600 #### [facility] [address] [place], [address] CBC W/Diff, Automatedon 10-3 0-2024 Absolute Lymph 1.14 X10 3/uL Normal 0.83-4.51 [facility] Comment on above: Performed By: #### L 100.0100, L500.4050 #### [facility] [address] [place], [address] Absolute Neut 3.0 X10 3/uL Normal 2.0-7.7 [facility] Comment on above: Performed By: #### L 100.0100, L500.4050 #### [facility] [address] [place], [address] Basophils/100 WBC (Bld) 1.2 % High 0-1 [facility] Comment on above: Performed By: #### L 100.0100, L500.4050 #### [facility] [address] [place], [address] Eosinophils/100 WBC (Bld) 7.2 % High 0-5 [facility] Comment on above: Performed By: #### L 100.0100, L500.4050 #### [facility] [address] [place], [address] Erythrocyte distribution width (RBC) [Ratio] 13.0 % Normal 11.6-14.6 [facility] Comment on above: Performed By: #### L 100.0100, L500.4050 #### [facility] [facility] [address] [place], [address] Hematocrit (Bld) [Volume fraction] 44.3 % Normal 40-54 [facility] Comment on above: Performed By: #### L 100.0100, L500.4050 #### [facility] [address] [place], [address] Hemoglobin (Bld) [Mass/Vol] 14.4 g/dL Normal 13.0-16.5 [facility] Comment on above: Performed By: #### L 100.0100, L500.4050 #### [facility] [address] [place], [address] IG% 0.600 Normal 0.0-0.9 [facility] Comment on above: Result Comment: IG% - Immature Granulocytes (promyelocytes, myelocytes and metamyelocytes) > 1% indicates that a LEFT SHIFT is Present. Performed By: #### L 100.0100, L500.4050 #### [facility] [address] [place], [address] Lymphocytes/100 WBC (Bld) 22.9 % Normal 19-41 [facility] Comment on above: Performed By: #### L 100.0100, L500.4050 #### [facility] [address] [place], [address] MCH (RBC) [Entitic mass] 29.9 pg Normal 27.0-32.0 [facility] Comment on above: Performed By: #### L 100.0100, L500.4050 #### [facility] [address] [place], [address] MCHC (RBC) [Mass/Vol] 32.5 g/dL Normal 32-36 [facility] Comment on above: Performed By: #### L 100.0100, L500.4050 #### [facility] [address] [place], [address] MCV (RBC) [Entitic vol] 91.9 fL Normal 80-94 [facility] Comment on above: Performed By: #### L 100.0100, L500.4050 #### [facility] [address] [place], [address] Monocytes/100 WBC (Bld) 8.0 % Normal 0-10 [facility] Comment on above: Performed By: #### L 100.0100, L500.4050 #### [facility] [address] [place], [address] Neutrophils/100 WBC (Bld) 60.1 % Normal 47-70 [facility] Comment on above: Performed By: #### L 100.0100, L500.4050 #### [facility] [address] [place], [address] Nucleated RBC (Bld) [#/Vol] 0 10*3/uL Normal 0-5 [facility] Comment on above: Performed By: #### L 100.0100, L500.4050 #### [facility] [address] [place], [address] Platelet mean volume (Bld) [Entitic vol] 10.2 fL Normal 6.2-12.0 [facility] Comment on above: Performed By: #### L 100.0100, L500.4050 #### [facility] [address] [place], [address] Platelets (Bld) [#/Vol] 158 10*3/uL Normal 150-450 [facility] Comment on above: Performed By: #### L 100.0100, L500.4050 #### [facility] [address] [place], [address] RBC (Bld) [#/Vol] 4.82 10*6/uL Normal 4.6-6.2 [facility] Comment on above: Performed By: #### L 100.0100, L500.4050 #### [facility] [address] [place], [address] RDW SD 43.6 fl Normal 35.1-43.9 [facility] Comment on above: Performed By: #### L 100.0100, L500.4050 #### [facility] [address] [place], [address] WBC (Bld) [#/Vol] 5.0 10*3/uL Normal 4.4-11.0 [facility] Comment on above: Performed By: #### L 100.0100, L500.4050 #### [facility] [address] [place], [address] Comprehensive Metabolic Prof [facility] 07-15-2024 Albumin [Mass/Vol] 3.6 g/dL Normal 3.2-5.0 [facility] Comment on above: Performed By: #### L 100.0100, L500.4050 #### [facility] [address] [place], [address] Albumin/Globulin [Mass ratio] 1.1 {ratio} Normal 0.9-2.4 [facility] Comment on above: Performed By: #### L 100.0100, L500.4050 #### [facility] [address] [place], [address] ALK P 99 U/L Normal 45-117 [facility] Comment on above: Performed By: #### L 100.0100, L500.4050 #### [facility] [address] [place], [address] ALT [Catalytic activity/Vol] 19 U/L Normal 16-61 [facility] Comment on above: Performed By: #### L 100.0100, L500.4050 #### [facility] [address] [place], [address] AST [Catalytic activity/Vol] 14 U/L Low 15-37 [facility] Comment on above: Performed By: #### L 100.0100, L500.4050 #### [facility] [address] [place], [address] Bilirubin [Mass/Vol] 0.40 mg/dL Normal 0.20-1.00 [facility] Comment on above: Result Comment: For patients on eltrombopag therapy, use of Dimension [place] TBIL is not recommended. Performed By: #### L 100.0100, L500.4050 #### [facility] [address] [place], [address] BUN/CRE 12.0 RATIO Normal 10-20 [facility] Comment on above: Performed By: #### L 100.0100, L500.4050 #### [facility] [address] [place], [address] CA,Total 8.6 mg/dL Normal 8.5-10.1 [facility] Comment on above: Performed By: #### L 100.0100, L500.4050 #### [facility] [address] [place], [address] Chloride [Moles/Vol] 113 mmol/L High 98-107 [facility] Comment on above: Performed By: #### L 100.0100, L500.4050 #### [facility] [address] [place], [address] CO2 [Moles/Vol] 25.0 mmol/L Normal 21.0-32.0 [facility] Comment on above: Performed By: #### L 100.0100, L500.4050 #### [facility] [address] [place], [address] Creatinine [Mass/Vol] 2.58 mg/dL High 0.70-1.30 [facility] Comment on above: Result Comment: The validity of the calculated GFR GFRAA in patients over 70 years has not been determined. Clinical correlation is essential. Performed By: #### L 100.0100, L500.4050 #### [facility] [address] [place], [address] EST GFR - AA 31 mL/min Low >60 [facility] Comment on above: Result Comment: Afri can [place] GFR Calc Performed By: #### L 100.0100, L500.4050 #### [facility] [address] [place], [address] GAP 5 Normal 5-15 [facility] Comment on above: Performed By: #### L 100.0100, L500.4050 #### [facility] [address] [place], [address] GFR/1.73 sq M.predicted among non-blacks MDRD (S/P/Bld) [Vol rate/Area] 26 mL/min/{1.73_m2} Low >60 [facility] Comment on above: Result Comment: Non- GFR Calc Performed By: #### L 100.0100, L500.4050 #### [facility] [address] [place], [address] Globulin (S) [Mass/Vol] 3.2 g/dL Normal 2.2-4.2 [facility] Comment on above: Performed By: #### L 100.0100, L500.4050 #### [facility] [address] [place], [address] Glucose [Mass/Vol] 117 mg/dL High 74-106 [facility] Comment on above: Result Comment: Fast ing Glucose result from 100 to 125 mg/dL suggests IMPAIRED HOMEOSTASIS per A.D.A. criteria. Performed By: #### L 100.0100, L500.4050 #### [facility] [address] [place], [address] Potassium [Moles/Vol] 4.1 mmol/L Normal 3.5-5.1 [facility] Comment on above: Performed By: #### L 100.0100, L500.4050 #### [facility] [address] [place], [address] Sodium [Moles/Vol] 143 mmol/L Normal 136-145 [facility] Comment on above: Performed By: #### L 100.0100, L500.4050 #### [facility] [address] [place], [address] T PROT 6.8 g/dL Normal 6.4-8.2 [facility] Comment on above: Performed By: #### L 100.0100, L500.4050 #### [facility] [address] [place], [address] Urea nitrogen [Mass/Vol] 31 mg/dL High 7-18 [facility] Comment on above: Performed By: #### L 100.0100, L500.4050 #### [facility] [address] [place], [address] Basophil percentageOrdered B y: Monisha Car on 12-06-2023 Basophil percentage 3.6 mg/dL 2.5-4.9 [facility] Chloride [Moles/Vol] 110 mmol/L 98-107 [facility] Glucose [Mass/Vol] 111 mg/dL 74-106 [facility] Comment on above: Fasting Glucose resu lt from 100 to 125 mg/dL suggests IMPAIRED HOMEOSTASIS per A.D.A. criteria. Potassium [Moles/Vol] 4.3 mmol/L 3.5-5.1 [facility] Sodium [Moles/Vol] 142 mmol/L 136-145 [facility] - Chemistry and C hemistry - challengeOrdered By: Monisha Yoon on 12-06-2023 CO2 [Moles/Vol] 29.0 mmol/L 21.0-32.0 [facility] Urea nitrogen/Creatinine [Mass ratio] 13.0 mg/mg 10-20 [facility] No Panel InformationOrdered By: Monisha Yoon on 12-06-2023 Estimated GFR (MDRD) Amer 29 mL/min >60 [facility] Comment on above: GFR Calc Estimated GFR (MDRD) Non-Af Amer 24 mL/min >60 [facility] Comment on above: Non- GFR Calc Parathyroid Hormone (Intact) 99.4 pg/mL 18.4-80.1 [facility] Serum or plasma calcium noam urement (mass/volume)Ordered By: Monisha Yoon on 12-06-2023 Calcium [Mass/Vol] 8.9 mg/dL 8.5-10.1 [facility] Serum or plasma creatinine m easurement (mass/volume)Ordered By: Monisha Yoon on 12-06-2023 Creatinine [Mass/Vol] 2.76 mg/dL 0.70-1.30 [facility] Comment on above: The validity of the calculated GFR & GFRAA in patients over 70 years has not been determined. Clinical correlation is essential. Serum or plasma urea nitroge n measurement (mass/volume)Ordered By: Monisha Yoon on 12-06-2023 Urea nitrogen [Mass/Vol] 36 mg/dL 7-18 [facility] Thin prep Papanicolaou smear with manual screeningOrdered By: Monisha Yoon on 12-06-2023 Thin prep Papanicolaou smear with manual screening 3.7 g/dL 3.2-5.0 [facility] No Panel Informationon 11-18 [facility] Julita 10-29-2023 [facility] JOHN ARRIOLA ([id number]) 1945 M Date Time Provider Department 10/29/23 GOKUL KUO [facility] During your visit today, we recorded the following information about you: Gokul Kuo, RT(R) 10/29/2023 9:05 AM Signed Hello, Please protocol this Cardiac MRI scheduled in [place] on 11/19/2023. Thanks, Bj Johnson MD 10/29/2023 11:24 PM Signed Constrictive pericarditis protocol Hello, Get the the dark, and bright bloods, [...] Allergies) Date Reviewed: 07/31/2022 Reviewed by: Madie Duffy, RN - Fully Assessed Reason for Visit: [...] ORAL) Take by mouth once daily. - [id number] RYL ORAL Take by mouth once daily. Problem List As Of Date: 10/29/2023 (None) Encounter Status:Closed by GOKUL KUO on 10/29/23 Normal [facility] Absolute lymphocyte countOrd ered By: [place] Abdirahman on 09-13-2023 Lymphocytes Auto (Unsp spec) [#/Vol] 1.12 10*3/uL 0.83-4.51 [facility] Basophil percentageOrdered B y: [place] Abdirahman on 09-13-2023 Basophils (Bld) [#/Vol] 4.4 10*3/uL 4.4-11.0 [facility] Basophils (Bld) [#/Vol] 2.6 10*3/uL 2.0-7.7 [facility] Basophils/100 WBC (Bld) 59.6 % 47-70 [facility] Basophils/100 WBC (Bld) 4.1 % 0-5 [facility] Basophils/100 WBC (Bld) 0.9 % 0-1 [facility] Eosinophils/100 WBC (Bld) 4.1 % 0-5 [facility] Neutrophils (Bld) [#/Vol] 2.6 10*3/uL 2.0-7.7 [facility] Neutrophils/100 WBC (Bld) 59.6 % 47-70 [facility] WBC (Bld) [#/Vol] 4.4 10*3/uL 4.4-11.0 [facility] Basophil percentage 115 mg/dL 74-106 [facility] Basophil percentage 7.1 g/dL 6.4-8.2 [facility] Basophil percentage 3.4 mg/dL 2.5-4.9 [facility] Basophil percentage 0.40 mg/dL 0.20-1.00 [facility] Basophil percentage 213 mg/dL <200 [facility] Basophil percentage 44 mg/dL <199 [facility] Basophil percentage 143 mmol/L 136-145 [facility] Basophil percentage 4.2 mmol/L 3.5-5.1 [facility] Basophil percentage 112 mmol/L 98-107 [facility] Bilirubin [Mass/Vol] 0.40 mg/dL 0.20-1.00 [facility] Comment on above: For patients on eltr ombopag therapy, use of Dimension [place] TBIL is not recommended. Chloride [Moles/Vol] 112 mmol/L 98-107 [facility] Cholesterol [Mass/Vol] 213 mg/dL <200 [facility] Comment on above: <200 mg/dL Desirable 200-240 mg/dL Borderline >240 mg/dL High Risk Glucose [Mass/Vol] 115 mg/dL 74-106 [facility] Comment on above: Fasting Glucose resu lt from 100 to 125 mg/dL suggests IMPAIRED HOMEOSTASIS per A.D.A. criteria. Potassium [Moles/Vol] 4.2 mmol/L 3.5-5.1 [facility] Protein [Mass/Vol] 7.1 g/dL 6.4-8.2 [facility] Sodium [Moles/Vol] 143 mmol/L 136-145 [facility] Triglyceride [Mass/Vol] 44 mg/dL <199 [facility] Comment on above: The drugs N-Acetylcy steine and Metamizole may falsely depress this assay.Serum Triglycerides Reference Interval Normal <150 mg/dL Borderline high 150 - 199 mg/dL High 200 - 499 mg/dL Very High > or = 500 mg/dL Blood erythrocytes count (nu mber/volume)Ordered By: [place] Abdirahman on 09-13-2023 RBC (Bld) [#/Vol] 4.35 10*6/uL 4.6-6.2 [facility] Blood hemoglobin measurement (mass/volume)Ordered By: [place] Abdirahman on 09-13-2023 Hemoglobin (Bld) [Mass/Vol] 12.7 g/dL 13.0-16.5 [facility] Blood lymphocytes/100 leukoc ytesOrdered By: [place] Abdirahman on 09-13-2023 Lymphocytes/100 WBC (Bld) 25.6 % 19-41 [facility] Blood monocytes/100 leukocyt esOrdered By: [place] Abdirahman on 09-13-2023 Monocytes/100 WBC (Bld) 9.1 % 0-10 [facility] Blood platelet mean volumeOr dered By: Ruiz [facility] on 09-13-2023 Platelet mean volume (Bld) [Entitic vol] 10.3 fL 6.2-12.0 [facility] Determination of erythrocyte mean corpuscular volume (MCV)Ordered By: Ru[place] Abdirahman on 09-13-2023 MCV (RBC) [Entitic vol] 93.6 fL 80-94 [facility] Direct bilirubinOrdered By: [facility] on 09-13-2023 Bilirubin.direct [Mass/Vol] 0.12 mg/dL 0.00-0.30 [facility] Hematocrit Auto (Bld) [Volum e fraction]Ordered By: [facility] on 09-13-2023 Hematocrit (Bld) [Volume fraction] 40.7 % 40-54 [facility] - Chemistry and C hemistry - challengeOrdered By: [facility] on 09-13-2023 ALP [Catalytic activity/Vol] 90 U/L 45-117 [facility] ALT [Catalytic activity/Vol] 17 U/L 16-61 [facility] CO2 [Moles/Vol] 27.0 mmol/L 21.0-32.0 [facility] Globulin (S) [Mass/Vol] 3.8 g/dL 2.2-4.2 [facility] Urea nitrogen/Creatinine [Mass ratio] 12.9 mg/mg 10-20 [facility] - Hematology and Cell countsOrdered By: [facility] on 09-13-2023 Erythrocyte distribution width (RBC) [Entitic vol] 54.4 fL 35.1-43.9 [facility] Erythrocyte distribution width (RBC) [Ratio] 15.6 % 11.6-14.6 [facility] Immature granulocytes/100 WBC (Bld) 0.700 % 0.0-0.9 [facility] Comment on above: IG% - Immature Granu locytes (promyelocytes, myelocytes and metamyelocytes) > 1% indicates that a LEFT SHIFT is Present. MCH (RBC) [Entitic mass] 29.2 pg 27.0-32.0 [facility] Nucleated RBC/100 WBC (Bld) [Ratio] 0 % 0-5 [facility] MCHC Auto (RBC) [Mass/Vol]Or dered By: Ruiz Gary on 09-13-2023 MCHC (RBC) [Mass/Vol] 31.2 g/dL 32-36 [facility] No Panel InformationOrdered By: Ruiz Gary on 09-13-2023 Parathyroid Hormone (Intact) 110.6 pg/mL 18.4-80.1 [facility] Urine Microalbumin/Creatinine Ratio 92.7 mg/g CRE <30 [facility] 29.2 pg 27.0-32.0 [facility] 15.6 % 11.6-14.6 [facility] 54.4 fl 35.1-43.9 [facility] 0.700 % 0.0-0.9 [facility] 0 % 0-5 [facility] 92.7 mg/g CRE <30 [facility] 110.6 pg/mL 18.4-80.1 [facility] Estimated GFR (MDRD) Amer 32 mL/min >60 [facility] Comment on above: GFR Calc Estimated GFR (MDRD) Non-Af Amer 26 mL/min >60 [facility] Comment on above: Non- GFR Calc 26 mL/min >60 [facility] 32 mL/min >60 [facility] 12.9 RATIO 10-20 [facility] 3.8 g/dL 2.2-4.2 [facility] 90 U/L 45-117 [facility] 17 U/L 16-61 [facility] 27.0 mmol/L 21.0-32.0 [facility] Platelets bldOrdered By: Ketan Gary on 09-13-2023 Platelets (Bld) [#/Vol] 185 10*3/uL 150-450 [facility] Serum or plasma albumin noam urement (mass/volume)Ordered By: Ruiz Gary on 09-13-2023 Albumin [Mass/Vol] 3.3 g/dL 3.2-5.0 [facility] Serum or plasma albumin/glob ulin mass ratioOrdered By: Ruiz Gary on 09-13-2023 Albumin/Globulin [Mass ratio] 0.9 {ratio} 0.9-2.4 [facility] Serum or plasma calcium noam urement (mass/volume)Ordered By: Ruiz Gary on 09-13-2023 Calcium [Mass/Vol] 8.7 mg/dL 8.5-10.1 [facility] Serum or plasma cholesterol in HDL measurement (mass/volume)Ordered By: Ruiz Gary on 09-13-2023 Cholesterol in HDL [Mass/Vol] 76 mg/dL >40 [facility] Comment on above: The drugs N-Acetylcy steine and Metamizole may falsely depress this assay. Reference Range HDL <40 mg/dL Low HDL Cholesterol HDL >or= 60 mg/dL High HDL Cholesterol Serum or plasma cholesterol in VLDL measurement (mass/volume)Ordered By: Ruiz Gary on 09-13-2023 Cholesterol in VLDL [Mass/Vol] 9 mg/dL 5-40 [facility] Serum or plasma creatinine m easurement (mass/volume)Ordered By: Ruiz Gary on 09-13-2023 Creatinine [Mass/Vol] 2.55 mg/dL 0.70-1.30 [facility] Comment on above: The validity of the calculated GFR & GFRAA in patients over 70 years has not been determined. Clinical correlation is essential. Serum or plasma low density lipoprotein (LDL) cholesterol measurement (mass/volume)Ordered By: Ruiz Gary on 09-13-2023 Cholesterol in LDL [Mass/Vol] 128 mg/dL 0-130 [facility] Serum or plasma urea nitroge n measurement (mass/volume)Ordered By: Ruiz Gary on 09-13-2023 Urea nitrogen [Mass/Vol] 33 mg/dL 7-18 [facility] Thin prep Papanicolaou smear with manual screeningOrdered By: Ruiz Gary on 09-13-2023 Thin prep Papanicolaou smear with manual screening 83.6 mg/L NO RANGE EST. [facility] Thin prep Papanicolaou smear with manual screening 11 U/L 15-37 [facility] Thin prep Papanicolaou smear with manual screening 4 5-15 [facility] Urine creatinine measurement (mass/volume)Ordered By: Ruiz Gary on 09-13-2023 Creatinine (U) [Mass/Vol] 90.20 mg/dL NO RANGE EST. [facility] Whole blood hemoglobin A1c/t otal hemoglobin ratio (mass fraction)Ordered By: Ruiz Gary on 09-13-2023 HbA1c (Bld) [Mass fraction] 5.6 % 3.8-5.6 [facility] Comment on above: Normal < 5.7 % Predi abetic 5.7 - 6.4 % Diabetic >or= 6.5 % Please note range changes. Calcium oxalate dihydrate cr ystals detection in stone by infrared spectroscopyOrdered By: Joseph Mora on 09-02-2023 Calcium oxalate dihydrate crystals Infrared spectroscopy Ql (Stone) 10 % [facility] Color of specimen determinat ionOrdered By: Joseph Mora on 09-02-2023 Color (Unsp spec) Brown [facility] - Miscellaneous t estsOrdered By: Joseph Mora on 09-02-2023 Service comment (Unsp spec) [Interp] See comment [facility] Comment on above: Physician questions regarding Calculi Analysis contact [facility] at :[phone]. Calculi report will follow via computer, mail, or autocad technician delivery Measurement of weight of sto neOrdered By: Joseph Mora on 09-02-2023 Weight (Stone) 61 mg [facility] No Panel InformationOrdered By: Joseph Mora on 09-02-2023 Stone Analysis (T) See comment [facility] Comment on above: Percentage (Represen ts the % composition) Stone Calcium Oxalate Monohydrate 90 % [facility] See comment [facility] 90 % [facility] Origin of StoneOrdered By: Mia Mora on 09-02-2023 Origin Nom (Stone) Not Provided [facility] Size of stoneOrdered By: True Mora on 09-02-2023 Size (Stone) [Entitic vol] 7x5 mm [facility] Comment on above: Single piece receive d Thin prep Papanicolaou smear with manual screeningOrdered By: Joseph Mora on 09-02-2023 Thin prep Papanicolaou smear with manual screening See comment [facility] Comment on above: Photograph will foll ow under a separate cover Absolute lymphocyte countOrd ered By: Frida Barber on 08-12-2023 Lymphocytes Auto (Unsp spec) [#/Vol] 0.93 10*3/uL 0.83-4.51 [facility] Basophil percentageOrdered B y: Frida Barber on 08-12-2023 Basophil percentage 108 mg/dL 74-106 [facility] Basophil percentage 7.3 g/dL 6.4-8.2 [facility] Basophil percentage 0.40 mg/dL 0.20-1.00 [facility] Basophil percentage 140 mmol/L 136-145 [facility] Basophil percentage 4.8 mmol/L 3.5-5.1 [facility] Basophil percentage 106 mmol/L 98-107 [facility] Basophils (Bld) [#/Vol] 5.0 10*3/uL 4.4-11.0 [facility] Basophils (Bld) [#/Vol] 3.5 10*3/uL 2.0-7.7 [facility] Basophils/100 WBC (Bld) 0.6 % 0-1 [facility] Basophils/100 WBC (Bld) 69.9 % 47-70 [facility] Basophils/100 WBC (Bld) 1.4 % 0-5 [facility] Bilirubin [Mass/Vol] 0.40 mg/dL 0.20-1.00 [facility] Comment on above: For patients on eltr ombopag therapy, use of Dimension [place] TBIL is not recommended. Chloride [Moles/Vol] 106 mmol/L 98-107 [facility] Eosinophils/100 WBC (Bld) 1.4 % 0-5 [facility] Glucose [Mass/Vol] 108 mg/dL 74-106 [facility] Comment on above: Fasting Glucose resu lt from 100 to 125 mg/dL suggests IMPAIRED HOMEOSTASIS per A.D.A. criteria. Neutrophils (Bld) [#/Vol] 3.5 10*3/uL 2.0-7.7 [facility] Neutrophils/100 WBC (Bld) 69.9 % 47-70 [facility] Potassium [Moles/Vol] 4.8 mmol/L 3.5-5.1 [facility] Protein [Mass/Vol] 7.3 g/dL 6.4-8.2 [facility] Sodium [Moles/Vol] 140 mmol/L 136-145 [facility] WBC (Bld) [#/Vol] 5.0 10*3/uL 4.4-11.0 [facility] Blood erythrocytes count (nu mber/volume)Ordered By: Frida Barber on 08-12-2023 RBC (Bld) [#/Vol] 4.09 10*6/uL 4.6-6.2 [facility] Blood hemoglobin measurement (mass/volume)Ordered By: Frida Barber on 08-12-2023 Hemoglobin (Bld) [Mass/Vol] 11.7 g/dL 13.0-16.5 [facility] Blood lymphocytes/100 leukoc ytesOrdered By: Fridasonu Barber on 08-12-2023 Lymphocytes/100 WBC (Bld) 18.8 % 19-41 [facility] Blood monocytes/100 leukocyt esOrdered By: Fridasonu Barber on 08-12-2023 Monocytes/100 WBC (Bld) 8.7 % 0-10 [facility] Blood platelet mean volumeOr dered By: Frida Barber on 08-12-2023 Platelet mean volume (Bld) [Entitic vol] 10.1 fL 6.2-12.0 [facility] Determination of erythrocyte mean corpuscular volume (MCV)Ordered By: Frida Barber on 08-12-2023 MCV (RBC) [Entitic vol] 92.7 fL 80-94 [facility] Hematocrit Auto (Bld) [Volum e fraction]Ordered By: Frida Barber on 08-12-2023 Hematocrit (Bld) [Volume fraction] 37.9 % 40-54 [facility] - Chemistry and C hemistry - challengeOrdered By: Frida Barber on 08-12-2023 ALP [Catalytic activity/Vol] 83 U/L 45-117 [facility] ALT [Catalytic activity/Vol] 19 U/L 16-61 [facility] CO2 [Moles/Vol] 29.0 mmol/L 21.0-32.0 [facility] Globulin (S) [Mass/Vol] 4.0 g/dL 2.2-4.2 [facility] Urea nitrogen/Creatinine [Mass ratio] 12.7 mg/mg 10-20 [facility] - Hematology and Cell countsOrdered By: Frida Barber on 08-12-2023 Erythrocyte distribution width (RBC) [Entitic vol] 48.5 fL 35.1-43.9 [facility] Erythrocyte distribution width (RBC) [Ratio] 14.3 % 11.6-14.6 [facility] Immature granulocytes/100 WBC (Bld) 0.600 % 0.0-0.9 [facility] Comment on above: IG% - Immature Granu locytes (promyelocytes, myelocytes and metamyelocytes) > 1% indicates that a LEFT SHIFT is Present. MCH (RBC) [Entitic mass] 28.6 pg 27.0-32.0 [facility] Nucleated RBC/100 WBC (Bld) [Ratio] 0 % 0-5 [facility] MCHC Auto (RBC) [Mass/Vol]Or dered By: Frida Barber on 08-12-2023 MCHC (RBC) [Mass/Vol] 30.9 g/dL 32-36 [facility] No Panel InformationOrdered By: Frida Barber on 08-12-2023 Estimated GFR (MDRD) Amer 30 mL/min >60 [facility] Comment on above: GFR Calc Estimated GFR (MDRD) Non-Af Amer 25 mL/min >60 [facility] Comment on above: Non- GFR Calc 28.6 pg 27.0-32.0 [facility] 14.3 % 11.6-14.6 [facility] 48.5 fl 35.1-43.9 [facility] 0.600 % 0.0-0.9 [facility] 0 % 0-5 [facility] 25 mL/min >60 [facility] 30 mL/min >60 [facility] 12.7 RATIO 10-20 [facility] 4.0 g/dL 2.2-4.2 [facility] 83 U/L 45-117 [facility] 19 U/L 16-61 [facility] 29.0 mmol/L 21.0-32.0 [facility] Platelets bldOrdered By: Ricky Barber on 08-12-2023 Platelets (Bld) [#/Vol] 207 10*3/uL 150-450 [facility] Serum or plasma albumin noam urement (mass/volume)Ordered By: Frida Barber on 08-12-2023 Albumin [Mass/Vol] 3.3 g/dL 3.2-5.0 [facility] Serum or plasma albumin/glob ulin mass ratioOrdered By: [facility] Sunil on 08-12-2023 Albumin/Globulin [Mass ratio] 0.8 {ratio} 0.9-2.4 [facility] Serum or plasma calcium noam urement (mass/volume)Ordered By: Frida Barber on 08-12-2023 Calcium [Mass/Vol] 8.6 mg/dL 8.5-10.1 [facility] Serum or plasma creatinine m easurement (mass/volume)Ordered By: Frida Barber on 08-12-2023 Creatinine [Mass/Vol] 2.68 mg/dL 0.70-1.30 [facility] Comment on above: The validity of the calculated GFR & GFRAA in patients over 70 years has not been determined. Clinical correlation is essential. Serum or plasma urea nitroge n measurement (mass/volume)Ordered By: Frida Barber on 08-12-2023 Urea nitrogen [Mass/Vol] 34 mg/dL 7-18 [facility] Thin prep Papanicolaou smear with manual screeningOrdered By: [facility] Sunil on 08-12-2023 Thin prep Papanicolaou smear with manual screening 17 U/L 15-37 [facility] Thin prep Papanicolaou smear with manual screening 5 5-15 [facility] Basophil percentageOrdered B y: Joseph Mora on 07-22-2023 Basophil percentage 124 mg/dL 74-106 [facility] Basophil percentage 137 mmol/L 136-145 [facility] Basophil percentage 3.8 mmol/L 3.5-5.1 [facility] Basophil percentage 108 mmol/L 98-107 [facility] Basophils (Bld) [#/Vol] 21.6 10*3/uL 4.4-11.0 [facility] Chloride [Moles/Vol] 108 mmol/L 98-107 [facility] Glucose [Mass/Vol] 124 mg/dL 74-106 [facility] Comment on above: Fasting Glucose resu lt from 100 to 125 mg/dL suggests IMPAIRED HOMEOSTASIS per A.D.A. criteria. Potassium [Moles/Vol] 3.8 mmol/L 3.5-5.1 [facility] Sodium [Moles/Vol] 137 mmol/L 136-145 [facility] WBC (Bld) [#/Vol] 21.6 10*3/uL 4.4-11.0 [facility] Blood erythrocytes count (nu mber/volume)Ordered By: Joseph Mora on 07-22-2023 RBC (Bld) [#/Vol] 3.86 10*6/uL 4.6-6.2 [facility] Blood hemoglobin measurement (mass/volume)Ordered By: Joseph Mora on 07-22-2023 Hemoglobin (Bld) [Mass/Vol] 11.4 g/dL 13.0-16.5 [facility] Blood platelet mean volumeOr dered By: Joseph Mora on 07-22-2023 Platelet mean volume (Bld) [Entitic vol] 10.3 fL 6.2-12.0 [facility] Determination of erythrocyte mean corpuscular volume (MCV)Ordered By: Joseph Mora on 07-22-2023 MCV (RBC) [Entitic vol] 92.2 fL 80-94 [facility] Hematocrit Auto (Bld) [Volum e fraction]Ordered By: Joseph Mora on 07-22-2023 Hematocrit (Bld) [Volume fraction] 35.6 % 40-54 [facility] - Chemistry and C hemistry - challengeOrdered By: Joseph Mora on 07-22-2023 CO2 [Moles/Vol] 23.0 mmol/L 21.0-32.0 [facility] Urea nitrogen/Creatinine [Mass ratio] 12.4 mg/mg 10-20 [facility] - Hematology and Cell countsOrdered By: Joseph Mora on 07-22-2023 Erythrocyte distribution width (RBC) [Entitic vol] 47.8 fL 35.1-43.9 [facility] Erythrocyte distribution width (RBC) [Ratio] 14.2 % 11.6-14.6 [facility] MCH (RBC) [Entitic mass] 29.5 pg 27.0-32.0 [facility] MCHC Auto (RBC) [Mass/Vol]Or dered By: Joseph Mora on 07-22-2023 MCHC (RBC) [Mass/Vol] 32.0 g/dL 32-36 [facility] No Panel InformationOrdered By: Joseph Mora on 07-22-2023 Estimated Creatinine Clearance Calc 22.19 ml/min [facility] Estimated GFR (MDRD) Amer 29 mL/min >60 [facility] Comment on above: GFR Calc Estimated GFR (MDRD) Non-Af Amer 24 mL/min >60 [facility] Comment on above: Non- GFR Calc 29.5 pg 27.0-32.0 [facility] 14.2 % 11.6-14.6 [facility] 47.8 fl 35.1-43.9 [facility] 24 mL/min >60 [facility] 29 mL/min >60 [facility] 22.19 ml/min [facility] 12.4 RATIO 10-20 [facility] 23.0 mmol/L 21.0-32.0 [facility] Platelets bldOrdered By: True Mora on 07-22-2023 Platelets (Bld) [#/Vol] 169 10*3/uL 150-450 [facility] Serum or plasma calcium noam urement (mass/volume)Ordered By: Joseph Mora on 07-22-2023 Calcium [Mass/Vol] 7.3 mg/dL 8.5-10.1 [facility] Serum or plasma creatinine m easurement (mass/volume)Ordered By: Joseph Mora on 07-22-2023 Creatinine [Mass/Vol] 2.74 mg/dL 0.70-1.30 [facility] Comment on above: The validity of the calculated GFR & GFRAA in patients over 70 years has not been determined. Clinical correlation is essential. Serum or plasma urea nitroge n measurement (mass/volume)Ordered By: Joseph Mora on 07-22-2023 Urea nitrogen [Mass/Vol] 34 mg/dL 7-18 [facility] Thin prep Papanicolaou smear with manual screeningOrdered By: Joseph Mora on 07-22-2023 Thin prep Papanicolaou smear with manual screening 6 5-15 [facility] Absolute lymphocyte countOrd ered By: Josemanuel Roa on 07-21-2023 Lymphocytes Auto (Unsp spec) [#/Vol] 1.14 10*3/uL 0.83-4.51 [facility] Bacteria identified Cx Nom ( U)Ordered By: Josemanuel Roa on 07-21-2023 Culture, urine Pseudomonas aeruginosa [facility] Basophil percentageOrdered B y: Josemanuel Roa on 07-21-2023 Basophil percentage 1.8 mmol/L 0.4-2.0 [facility] Lactate [Moles/Vol] 1.8 mmol/L 0.4-2.0 [facility] Basophil percentage Not Reportable [facility] Basophils (Bld) [#/Vol] 26.6 10*3/uL 2.0-7.7 [facility] Chloride [Moles/Vol] 102 mmol/L 98-107 [facility] Glucose [Mass/Vol] 157 mg/dL 74-106 [facility] Comment on above: Fasting Glucose resu lt greater than or equal to 126 mg/dL suggests DIABETES MELLITUS per A.D.A. criteria. Neutrophils (Bld) [#/Vol] 26.6 10*3/uL 2.0-7.7 [facility] Potassium [Moles/Vol] 3.7 mmol/L 3.5-5.1 [facility] Sodium [Moles/Vol] 137 mmol/L 136-145 [facility] WBC (Bld) [#/Vol] 28.6 10*3/uL 4.4-11.0 [facility] Basophil percentage 50-100 SEEN /hpf 0-5 [facility] Bilirubin Test strip Ql (U)O rdered By: Josemanuel Roa on 07-21-2023 Bilirubin Ql (U) 3 mg/dL Negative [facility] Comment on above: COLOR OF URINE MAY A FFECT DIPSTICK RESULTS. Blood band neutrophil count as percentage of total leukocytesOrdered By: Josemanuel Roa on 07-21-2023 Band form neutrophils/100 WBC (Bld) 5 % 0-5 [facility] Blood erythrocytes count (nu mber/volume)Ordered By: Josemanuel Roa on 07-21-2023 RBC (Bld) [#/Vol] 4.63 10*6/uL 4.6-6.2 [facility] Blood hemoglobin measurement (mass/volume)Ordered By: Josemanuel Roa on 07-21-2023 Hemoglobin (Bld) [Mass/Vol] 13.4 g/dL 13.0-16.5 [facility] Blood lymphocytes/100 leukoc ytesOrdered By: Josemanuel Roa on 07-21-2023 Lymphocytes/100 WBC (Bld) 4 % 19-41 [facility] Blood manual differential co mment interpretation (narrative result)Ordered By: Josemanuel Roa on 07-21-2023 Manual differential comment Fred (Bld) [Interp] SCANNED [facility] Blood metamyelocytes/100 jroge kocytesOrdered By: Josemanuel Roa on 07-21-2023 Metamyelocytes/100 WBC (Bld) 1 % 0-1 [facility] Blood monocytes/100 leukocyt esOrdered By: Josemanuel Roa on 07-21-2023 Monocytes/100 WBC (Bld) 3 % 0-10 [facility] Blood platelet adequacy dete ction by light microscopyOrdered By: Josemanuel Roa on 07-21-2023 Platelets LM Ql (Bld) ADEQUATE ADEQ [facility] Blood platelet mean volumeOr dered By: Josemanuel Roa on 07-21-2023 Platelet mean volume (Bld) [Entitic vol] 9.4 fL 6.2-12.0 [facility] Blood segmented neutrophils/ 100 leukocytesOrdered By: Josemanuel Roa on 07-21-2023 Segmented neutrophils/100 WBC (Bld) 87 % 47-70 [facility] Calcium oxalate dihydrate cr ystals detection in stone by infrared spectroscopyOrdered By: Joseph Mora on 07-21-2023 Calcium oxalate dihydrate crystals Infrared spectroscopy Ql (Stone) 10 % [facility] Color of specimen determinat ionOrdered By: Joseph Mora on 07-21-2023 Color (Unsp spec) Brown [facility] Culture, urineOrdered By: Do emma Roa on 07-21-2023 Bacteria identified Cx Nom (U) Pseudomonas aeruginosa [facility] Determination of erythrocyte mean corpuscular volume (MCV)Ordered By: Josemanuel Roa on 07-21-2023 MCV (RBC) [Entitic vol] 91.4 fL 80-94 [facility] Hematocrit Auto (Bld) [Volum e fraction]Ordered By: Josemanuel Roa on 07-21-2023 Hematocrit (Bld) [Volume fraction] 42.3 % 40-54 [facility] INR in Blood by Coagulation assayOrdered By: Josemanuel Roa on 07-21-2023 INR Coag (Bld) [Relative time] 1.2 {INR} [facility] Ketones Test strip Ql (U)Ord ered By: Josemanuel Roa on 07-21-2023 Ketones Ql (U) 5 mg/dl Negative [facility] Laboratory - Chemistry and C hemistry - challengeOrdered By: Josemanuel Roa on 07-21-2023 CO2 [Moles/Vol] 28.0 mmol/L 21.0-32.0 [facility] Urea nitrogen/Creatinine [Mass ratio] 10.6 mg/mg 10-20 [facility] Laboratory - CoagulationOrde red By: Josemanuel Roa on 07-21-2023 PT Coag (PPP) [Time] 15.3 s 11.7-14.9 [facility] Laboratory - Hematology and Cell countsOrdered By: Josemanuel Roa on 07-21-2023 Erythrocyte distribution width (RBC) [Entitic vol] 46.3 fL 35.1-43.9 [facility] Erythrocyte distribution width (RBC) [Ratio] 14.0 % 11.6-14.6 [facility] MCH (RBC) [Entitic mass] 28.9 pg 27.0-32.0 [facility] - Microbiology an d Antimicrobial susceptibilityOrdered By: Josemanuel Roa on 07-21-2023 Bacteria identified Cx Nom (Bld) GNR Poss Pseudomonas sp [facility] Bacteria identified Cx Nom (Bld) Pseudomonas aeruginosa [facility] Laboratory - Miscellaneous t estsOrdered By: Joseph Mora on 07-21-2023 Service comment (Unsp spec) [Interp] See comment [facility] Comment on above: Physician questions regarding Calculi Analysis contact [facility] at: [phone]. Calculi report will follow via computer, mail, or autocad technician delivery. MCHC Auto (RBC) [Mass/Vol]Or dered By: Josemanuel Roa on 07-21-2023 MCHC (RBC) [Mass/Vol] 31.7 g/dL 32-36 [facility] Measurement of weight of sto neOrdered By: Joseph Mora on 07-21-2023 Weight (Stone) 67 mg [facility] Mucus LM Ql (Urine sed)Order ed By: Josemanuel Roa on 07-21-2023 Mucus Ql (Urine sed) 0 SEEN /hpf [facility] Nitrite Test strip Ql (U)Ord ered By: Josemanuel Roa on 07-21-2023 Nitrite Ql (U) Positive Negative [facility] No Panel InformationOrdered By: Joseph Mora on 07-21-2023 Stone Analysis (T) See comment [facility] Comment on above: Percentage (Represen ts the % composition) Stone Calcium Oxalate Monohydrate 90 % [facility] See comment [facility] 90 % [facility] No Panel InformationOrdered By: Josemanuel Roa on 07-21-2023 15.3 SECONDS 11.7-14.9 [facility] GNR Poss Pseudomonas sp [facility] Pseudomonas aeruginosa [facility] Estimated Creatinine Clearance Calc 23.90 ml/min [facility] Estimated GFR (MDRD) Amer 31 mL/min >60 [facility] Comment on above: GFR Calc Estimated GFR (MDRD) Non-Af Amer 25 mL/min >60 [facility] Comment on above: Non- GFR Calc Origin of StoneOrdered By: Mia Mora on 07-21-2023 Origin Nom (Stone) Right Ureteral [facility] Platelets bldOrdered By: Kenji Roa on 07-21-2023 Platelets (Bld) [#/Vol] 210 10*3/uL 150-450 [facility] Protein Test strip Ql (U)Ord ered By: Josemanuel Roa on 07-21-2023 Protein Ql (U) 100 mg/dl Negative [facility] RBC morphologyOrdered By: Do emma Roa on 07-21-2023 RBC morphology finding Nom (Bld) NORM C+C NORMAL NORM C&C [facility] Review by pathologistOrdered By: Josemanuel Roa on 07-21-2023 Pathologist review Fred (Unsp spec) [Interp] Leslie gant [facility] Pathologist review Fred (Unsp spec) [Interp] Reviewed [facility] Comment on above: Previous reported re sult: Leslie gant Edited by: ERIC on 07/23/23:0819Neutrophilic leukocytosis.Clinical correlation necessary.Hector Maza M.D. 07/23/23 AMENDED REPORT 07/23/[id number] PATH REV previously reported as: Leslie alfreda Serum or plasma calcium noam urement (mass/volume)Ordered By: Josemanuel Roa on 07-21-2023 Calcium [Mass/Vol] 8.6 mg/dL 8.5-10.1 [facility] Serum or plasma creatinine m easurement (mass/volume)Ordered By: Josemanuel Roa on 07-21-2023 Creatinine [Mass/Vol] 2.63 mg/dL 0.70-1.30 [facility] Comment on above: The validity of the calculated GFR & GFRAA in patients over 70 years has not been determined. Clinical correlation is essential. Serum or plasma urea nitroge n measurement (mass/volume)Ordered By: Josemanuel Roa on 07-21-2023 Urea nitrogen [Mass/Vol] 28 mg/dL 7-18 [facility] Size of stoneOrdered By: True Mora on 07-21-2023 Size (Stone) [Entitic vol] 6x6 mm [facility] Comment on above: Single piece receive d. Squamous epithelial cells de tection in urine sediment by light microscopyOrdered By: Josemanuel Roa on 07-21-2023 Epithelial cells.squamous LM Ql (Urine sed) 0 SEEN /hpf 0-5 [facility] Thin prep Papanicolaou smear with manual screeningOrdered By: Joseph Mora on 07-21-2023 Thin prep Papanicolaou smear with manual screening See comment [facility] Comment on above: Photograph vianney gant ow under a separate cover Thin prep Papanicolaou smear with manual screeningOrdered By: Josemanuel Roa on 07-21-2023 Thin prep Papanicolaou smear with manual screening 7 5-15 [facility] Total cell countOrdered By: Josemanuel Roa on 07-21-2023 Cells counted Molgen (Bld/Tiss) [#] 100 MANUAL DIFF [facility] Urine blood detectionOrdered By: Josemanuel Roa on 07-21-2023 RBC Ql (U) 250 /ul Negative [facility] RBC Ql (U) > 100 SEEN /hpf 0-5 [facility] Urine clarityOrdered By: Kenji Roa on 07-21-2023 Clarity (U) Cloudy Clear [facility] Urine color determinationOrd ered By: Josemanuel Roa on 07-21-2023 Color (U) Yellow Yellow [facility] Urine glucose detectionOrder ed By: Josemanuel Roa on 07-21-2023 Glucose Ql (U) Normal mg/dl Normal [facility] Urine leukocyte esterase det ection by dipstickOrdered By: Josemanuel Roa on 07-21-2023 Leukocyte esterase Test strip Ql (U) 500 /ul Negative [facility] Urine pHOrdered By: Josemanuel medina on 07-21-2023 pH (U) 6.5 [pH] 5.0 - 8.0 [facility] Urine sediment bacteria coun t by microscopy (number/high power field)Ordered By: Josemanuel Roa on 07-21-2023 Bacteria LM.HPF (Urine sed) [#/Area] 1 /[HPF] None Seen [facility] Urine specific gravity measu rementOrdered By: Josemanuel Roa on 07-21-2023 Specific gravity (U) [Rel density] 1.015 1.002-1.03 0 [facility] Urobilinogen Auto test strip Ql (U)Ordered By: Josemanuel Roa on 07-21-2023 Urobilinogen Ql (U) 8 mg/dl Normal [facility] Absolute lymphocyte countOrd ered By: Silvestre Pitts on 07-07-2023 Lymphocytes Auto (Unsp spec) [#/Vol] 0.74 10*3/uL 0.83-4.51 [facility] Bacteria identified Cx Nom ( U)Ordered By: Silvestre Pitts on 07-07-2023 Culture, urine GNR Poss Pseudomonas sp [facility] Basophil percentageOrdered B y: Silvestre Pitts on 07-07-2023 Basophil percentage 10-25 SEEN /hpf 0-5 [facility] Basophil percentage 166 mg/dL 74-106 [facility] Basophil percentage 7.4 g/dL 6.4-8.2 [facility] Basophil percentage 0.40 mg/dL 0.20-1.00 [facility] Basophil percentage 138 mmol/L 136-145 [facility] Basophil percentage 3.7 mmol/L 3.5-5.1 [facility] Basophil percentage 101 mmol/L 98-107 [facility] Basophils (Bld) [#/Vol] 8.1 10*3/uL 4.4-11.0 [facility] Basophils (Bld) [#/Vol] 6.4 10*3/uL 2.0-7.7 [facility] Basophils/100 WBC (Bld) 0.5 % 0-1 [facility] Basophils/100 WBC (Bld) 79.6 % 47-70 [facility] Basophils/100 WBC (Bld) 0.9 % 0-5 [facility] Bilirubin [Mass/Vol] 0.40 mg/dL 0.20-1.00 [facility] Comment on above: For patients on eltr ombopag therapy, use of Dimension [place] TBIL is not recommended. Chloride [Moles/Vol] 101 mmol/L 98-107 [facility] Eosinophils/100 WBC (Bld) 0.9 % 0-5 [facility] Glucose [Mass/Vol] 166 mg/dL 74-106 [facility] Comment on above: Fasting Glucose resu lt greater than or equal to 126 mg/dL suggests DIABETES MELLITUS per A.D.A. criteria. Neutrophils (Bld) [#/Vol] 6.4 10*3/uL 2.0-7.7 [facility] Neutrophils/100 WBC (Bld) 79.6 % 47-70 [facility] Potassium [Moles/Vol] 3.7 mmol/L 3.5-5.1 [facility] Protein [Mass/Vol] 7.4 g/dL 6.4-8.2 [facility] Sodium [Moles/Vol] 138 mmol/L 136-145 [facility] WBC (Bld) [#/Vol] 8.1 10*3/uL 4.4-11.0 [facility] Bilirubin Test strip Ql (U)O rdered By: Silvestre Pitts on 07-07-2023 Bilirubin Ql (U) Negative Negative [facility] Blood erythrocytes count (nu mber/volume)Ordered By: Silvestre Pitts on 07-07-2023 RBC (Bld) [#/Vol] 4.11 10*6/uL 4.6-6.2 [facility] Blood hemoglobin measurement (mass/volume)Ordered By: Silvestre Pitts on 07-07-2023 Hemoglobin (Bld) [Mass/Vol] 12.0 g/dL 13.0-16.5 [facility] Blood lymphocytes/100 leukoc ytesOrdered By: Silvestre Pitts on 07-07-2023 Lymphocytes/100 WBC (Bld) 9.2 % 19-41 [facility] Blood monocytes/100 leukocyt esOrdered By: Silvestre Pitts on 07-07-2023 Monocytes/100 WBC (Bld) 9.2 % 0-10 [facility] Blood platelet mean volumeOr dered By: Silvestre Pitts on 07-07-2023 Platelet mean volume (Bld) [Entitic vol] 10.5 fL 6.2-12.0 [facility] Culture, urineOrdered By: Raz Pitts on 07-07-2023 Bacteria identified Cx Nom (U) GNR Poss Pseudomonas sp [facility] Determination of erythrocyte mean corpuscular volume (MCV)Ordered By: Silvestre Pitts on 07-07-2023 MCV (RBC) [Entitic vol] 94.2 fL 80-94 [facility] Hematocrit Auto (Bld) [Volum e fraction]Ordered By: Silvestre Pitts on 07-07-2023 Hematocrit (Bld) [Volume fraction] 38.7 % 40-54 [facility] Ketones Test strip Ql (U)Ord ered By: Silvestre Pitts on 07-07-2023 Ketones Ql (U) Negative Negative [facility] Laboratory - Chemistry and C hemistry - challengeOrdered By: Silvestre Pitts on 07-07-2023 ALP [Catalytic activity/Vol] 95 U/L 45-117 [facility] ALT [Catalytic activity/Vol] 18 U/L 16-61 [facility] CO2 [Moles/Vol] 30.0 mmol/L 21.0-32.0 [facility] Globulin (S) [Mass/Vol] 4.2 g/dL 2.2-4.2 [facility] Lipase [Catalytic activity/Vol] 33 U/L 13-75 [facility] Comment on above: Please note:LIPASE r evised reference range effective 22. New Lipase methodology. Expected to produce lower values than the previous assay method. NEW Reference Range: 13 - 75 U/L Urea nitrogen/Creatinine [Mass ratio] 11.8 mg/mg - [facility] - Hematology and Cell countsOrdered By: Silvestre Pitts on 07-07-2023 Erythrocyte distribution width (RBC) [Entitic vol] 44.4 fL 35.1-43.9 [facility] Erythrocyte distribution width (RBC) [Ratio] 12.9 % 11.6-14.6 [facility] Immature granulocytes/100 WBC (Bld) 0.600 % 0.0-0.9 [facility] Comment on above: IG% - Immature Granu locytes (promyelocytes, myelocytes and metamyelocytes) > 1% indicates that a LEFT SHIFT is Present. MCH (RBC) [Entitic mass] 29.2 pg 27.0-32.0 [facility] Nucleated RBC/100 WBC (Bld) [Ratio] 0 % 0-5 [facility] MCHC Auto (RBC) [Mass/Vol]Or dered By: Silvetsre Pitts on 07-07-2023 MCHC (RBC) [Mass/Vol] 31.0 g/dL 32-36 [facility] Mucus LM Ql (Urine sed)Order ed By: Silvestre Pitts on 07-07-2023 Mucus Ql (Urine sed) 0 SEEN /hpf [facility] Nitrite Test strip Ql (U)Ord ered By: Silvestre Pitts on 07-07-2023 Nitrite Ql (U) Negative Negative [facility] No Panel InformationOrdered By: Silvestre Pitts on 07-07-2023 Estimated Creatinine Clearance Calc 28.46 ml/min [facility] Estimated GFR (MDRD) Amer 36 mL/min >60 [facility] Comment on above: GFR Calc Estimated GFR (MDRD) Non-Af Amer 30 mL/min >60 [facility] Comment on above: Non- GFR Calc 29.2 pg 27.0-32.0 [facility] 12.9 % 11.6-14.6 [facility] 44.4 fl 35.1-43.9 [facility] 0.600 % 0.0-0.9 [facility] 0 % 0-5 [facility] 30 mL/min >60 [facility] 36 mL/min >60 [facility] 28.46 ml/min [facility] 11.8 RATIO 10-20 [facility] 4.2 g/dL 2.2-4.2 [facility] 33 U/L 13-75 [facility] 95 U/L 45-117 [facility] 18 U/L 16-61 [facility] 30.0 mmol/L 21.0-32.0 [facility] Platelets bldOrdered By: Yenny Pitts on 07-07-2023 Platelets (Bld) [#/Vol] 206 10*3/uL 150-450 [facility] Protein Test strip Ql (U)Ord ered By: Silvestre Pitts on 07-07-2023 Protein Ql (U) 30 mg/dl Negative [facility] Serum or plasma albumin noam urement (mass/volume)Ordered By: Silvestre Pitts on 07-07-2023 Albumin [Mass/Vol] 3.2 g/dL 3.2-5.0 [facility] Serum or plasma albumin/glob ulin mass ratioOrdered By: Silvestre Pitts on 07-07-2023 Albumin/Globulin [Mass ratio] 0.8 {ratio} 0.9-2.4 [facility] Serum or plasma calcium noam urement (mass/volume)Ordered By: Silvsetre Pitts on 07-07-2023 Calcium [Mass/Vol] 8.6 mg/dL 8.5-10.1 [facility] Serum or plasma creatinine m easurement (mass/volume)Ordered By: Silvestre Pitts on 07-07-2023 Creatinine [Mass/Vol] 2.28 mg/dL 0.70-1.30 [facility] Comment on above: The validity of the calculated GFR & GFRAA in patients over 70 years has not been determined. Clinical correlation is essential. Serum or plasma urea nitroge n measurement (mass/volume)Ordered By: Silvestre Pitts on 07-07-2023 Urea nitrogen [Mass/Vol] 27 mg/dL 7-18 [facility] Squamous epithelial cells de tection in urine sediment by light microscopyOrdered By: Silvestre Pitts on 10-22-2023 Epithelial cells.squamous LM Ql (Urine sed) 0 SEEN /hpf 0-5 [facility] Thin prep Papanicolaou smear with manual screeningOrdered By: Silvestre Pitts on 07-07-2023 Thin prep Papanicolaou smear with manual screening 15 U/L 15-37 [facility] Thin prep Papanicolaou smear with manual screening 7 5-15 [facility] Urine blood detectionOrdered By: Silvestre Pitst on 07-07-2023 RBC Ql (U) 50 /ul Negative [facility] RBC Ql (U) 0-5 SEEN /hpf 0-5 [facility] Urine clarityOrdered By: Yenny Pitts on 07-07-2023 Clarity (U) Clear Clear [facility] Urine color determinationOrd ered By: Silvestre Pitts on 07-07-2023 Color (U) Yellow Yellow [facility] Urine glucose detectionOrder ed By: Silvestre Pitts on 07-07-2023 Glucose Ql (U) 100 mg/dl Normal [facility] Urine leukocyte esterase det ection by dipstickOrdered By: Silvestre Pitts on 07-07-2023 Leukocyte esterase Test strip Ql (U) 500 /ul Negative [facility] Urine pHOrdered By: Silvestre fraser on 07-07-2023 pH (U) 6.5 [pH] 5.0 - 8.0 [facility] Urine sediment bacteria coun t by microscopy (number/high power field)Ordered By: Silvestre Pitts on 07-07-2023 Bacteria LM.HPF (Urine sed) [#/Area] 0 /[HPF] None Seen [facility] Urine specific gravity measu rementOrdered By: Silvestre Pitts on 07-07-2023 Specific gravity (U) [Rel density] 1.015 1.002-1.03 0 [facility] Urobilinogen Auto test strip Ql (U)Ordered By: Silvestre Pitts on 07-07-2023 Urobilinogen Ql (U) Normal mg/dl Normal [facility] Basophil percentageOrdered B y: Delvis ToscanoClaudine on 06-26-2023 Basophil percentage 217 mg/dL 74-106 [facility] [place] Basophil percentage 136 mmol/L 136-145 [facility] Basophil percentage 4.2 mmol/L 3.5-5.1 [facility] Basophil percentage 105 mmol/L 98-107 [facility] Chloride [Moles/Vol] 105 mmol/L 98-107 [facility] Glucose [Mass/Vol] 217 mg/dL 74-106 [facility] Comment on above: Glucose result great er than or equal to 200 mg/dLsuggests DIABETES MELLITUS per A.D.A. criteria. Potassium [Moles/Vol] 4.2 mmol/L 3.5-5.1 [facility] Sodium [Moles/Vol] 136 mmol/L 136-145 [facility] Laboratory - Chemistry and C hemistry - challengeOrdered By: Delvis Maldonado on 06-26-2023 CO2 [Moles/Vol] 26.0 mmol/L 21.0-32.0 [facility] Urea nitrogen/Creatinine [Mass ratio] 9.5 mg/mg 07-05 [facility] No Panel InformationOrdered By: Delvis Maldonado on 06-26-2023 Estimated GFR (MDRD) Amer 36 mL/min >60 [facility] Comment on above: GFR Calc Estimated GFR (MDRD) Non-Af Amer 29 mL/min >60 [facility] Comment on above: Non- GFR Calc 29 mL/min >60 [facility] 36 mL/min >60 [facility] 9.5 RATIO 07-05 [facility] 26.0 mmol/L 21.0-32.0 [facility] Serum or plasma calcium noam urement (mass/volume)Ordered By: Delvis Maldonado on 06-26-2023 Calcium [Mass/Vol] 8.6 mg/dL 8.5-10.1 [facility] Serum or plasma creatinine m easurement (mass/volume)Ordered By: Delvis Maldonado on 06-26-2023 Creatinine [Mass/Vol] 2.31 mg/dL 0.70-1.30 [facility] Comment on above: The validity of the calculated GFR & GFRAA in patients over 70 years has not been determined. Clinical correlation is essential. Serum or plasma urea nitroge n measurement (mass/volume)Ordered By: Delvis Maldonado on 06-26-2023 Urea nitrogen [Mass/Vol] 22 mg/dL - [facility] Thin prep Papanicolaou smear with manual screeningOrdered By: Delvis Maldonado on 06-26-2023 Thin prep Papanicolaou smear with manual screening 5 5-15 [facility] Basophil percentageOrdered B y: Karlos Hernandez on 06-15-2023 Basophil percentage 185 mg/dL 74-106 [facility] [place] Basophil percentage 137 mmol/L 136-145 [facility] Basophil percentage 4.7 mmol/L 3.5-5.1 [facility] Basophil percentage 108 mmol/L 98-107 [facility] Chloride [Moles/Vol] 108 mmol/L 98-107 [facility] Glucose [Mass/Vol] 185 mg/dL 74-106 [facility] Comment on above: Fasting Glucose resu lt greater than or equal to 126 mg/dL suggests DIABETES MELLITUS per A.D.A. criteria. Potassium [Moles/Vol] 4.7 mmol/L 3.5-5.1 [facility] Sodium [Moles/Vol] 137 mmol/L 136-145 [facility] Laboratory - Chemistry and C hemistry - challengeOrdered By: Karlos Hernandez on 06-15-2023 CO2 [Moles/Vol] 24.0 mmol/L 21.0-32.0 [facility] Urea nitrogen/Creatinine [Mass ratio] 17.5 mg/mg 07-05 [facility] No Panel InformationOrdered By: Karlos Hernandez on 06-15-2023 Estimated Creatinine Clearance Calc 22.30 ml/min [facility] Estimated GFR (MDRD) Amer 27 mL/min >60 [facility] Comment on above: GFR Calc Estimated GFR (MDRD) Non-Af Amer 23 mL/min >60 [facility] Comment on above: Non- GFR Calc 23 mL/min >60 [facility] 27 mL/min >60 [facility] 22.30 ml/min [facility] 17.5 RATIO - [facility] 24.0 mmol/L 21.0-32.0 [facility] Serum or plasma calcium noam urement (mass/volume)Ordered By: Karlos Hernandez on 06-15-2023 Calcium [Mass/Vol] 8.3 mg/dL 8.5-10.1 [facility] Serum or plasma creatinine m easurement (mass/volume)Ordered By: Karlos Hernandez on 06-15-2023 Creatinine [Mass/Vol] 2.91 mg/dL 0.70-1.30 [facility] Comment on above: The validity of the calculated GFR & GFRAA in patients over 70 years has not been determined. Clinical correlation is essential. Serum or plasma urea nitroge n measurement (mass/volume)Ordered By: Karlos Hernandez on 06-15-2023 Urea nitrogen [Mass/Vol] 51 mg/dL 7-18 [facility] Thin prep Papanicolaou smear with manual screeningOrdered By: Karlosmickey Hernandez on 06-15-2023 Thin prep Papanicolaou smear with manual screening 5 5-15 [facility] Absolute lymphocyte countOrd ered By: Karlos Hernandez on 06-14-2023 Lymphocytes Auto (Unsp spec) [#/Vol] 0.56 10*3/uL 0.83-4.51 [facility] Basophil percentageOrdered B y: Karlos Hernandez on 06-14-2023 Basophils (Bld) [#/Vol] 6.7 10*3/uL 4.4-11.0 [facility] Basophils (Bld) [#/Vol] 5.3 10*3/uL 2.0-7.7 [facility] Basophils/100 WBC (Bld) 0.7 % 0-1 [facility] Basophils/100 WBC (Bld) 79.1 % 47-70 [facility] Basophils/100 WBC (Bld) 1.8 % 0-5 [facility] Eosinophils/100 WBC (Bld) 1.8 % 0-5 [facility] Neutrophils (Bld) [#/Vol] 5.3 10*3/uL 2.0-7.7 [facility] Neutrophils/100 WBC (Bld) 79.1 % 47-70 [facility] WBC (Bld) [#/Vol] 6.7 10*3/uL 4.4-11.0 [facility] Blood erythrocytes count (nu mber/volume)Ordered By: Karlos Hernandez on 06-14-2023 RBC (Bld) [#/Vol] 3.95 10*6/uL 4.6-6.2 [facility] Blood hemoglobin measurement (mass/volume)Ordered By: Karlos Hernandez on 06-14-2023 Hemoglobin (Bld) [Mass/Vol] 11.7 g/dL 13.0-16.5 [facility] Blood lymphocytes/100 leukoc ytesOrdered By: Karlos Hernandez on 06-14-2023 Lymphocytes/100 WBC (Bld) 8.4 % 19-41 [facility] Blood manual differential co mment interpretation (narrative result)Ordered By: Karlos Hernandez on 06-14-2023 Manual differential comment Fred (Bld) [Interp] SCANNED [facility] Comment on above: LYMPHOPENIA NOTED Blood monocytes/100 leukocyt esOrdered By: Karlos Hernandez on 06-14-2023 Monocytes/100 WBC (Bld) 9.0 % 0-10 [facility] Blood platelet mean volumeOr dered By: Karlos Hernandez on 06-14-2023 Platelet mean volume (Bld) [Entitic vol] 9.8 fL 6.2-12.0 [facility] Determination of erythrocyte mean corpuscular volume (MCV)Ordered By: Karlos Hernandez on 06-14-2023 MCV (RBC) [Entitic vol] 92.7 fL 80-94 [facility] Hematocrit Auto (Bld) [Volum e fraction]Ordered By: Karlos Hernandez on 06-14-2023 Hematocrit (Bld) [Volume fraction] 36.6 % 40-54 [facility] Laboratory - Hematology and Cell countsOrdered By: Karlos Hernandez on 06-14-2023 Erythrocyte distribution width (RBC) [Entitic vol] 43.4 fL 35.1-43.9 [facility] Erythrocyte distribution width (RBC) [Ratio] 12.7 % 11.6-14.6 [facility] Immature granulocytes/100 WBC (Bld) 1.000 % 0.0-0.9 [facility] Comment on above: IG% - Immature Granu locytes (promyelocytes, myelocytes and metamyelocytes) > 1% indicates that a LEFT SHIFT is Present. MCH (RBC) [Entitic mass] 29.6 pg 27.0-32.0 [facility] Nucleated RBC/100 WBC (Bld) [Ratio] 0 % 0-5 [facility] MCHC Auto (RBC) [Mass/Vol]Or dered By: Karlos Hernandez on 06-14-2023 MCHC (RBC) [Mass/Vol] 32.0 g/dL 32-36 [facility] No Panel InformationOrdered By: Ajay Staley on 06-14-2023 Thyroid Stimulating Hormone (TSH) 2.54 uIU/mL 0.358-3.74 [facility] 2.54 uIU/mL 0.358-3.74 [facility] No Panel InformationOrdered By: Karlos Hernandez on 06-14-2023 29.6 pg 27.0-32.0 [facility] 12.7 % 11.6-14.6 [facility] 43.4 fl 35.1-43.9 [facility] 1.000 % 0.0-0.9 [facility] 0 % 0-5 [facility] Platelets bldOrdered By: Colleen Hernandez on 06-14-2023 Platelets (Bld) [#/Vol] 241 10*3/uL 150-450 [facility] Basophil percentageOrdered B y: Anju Alexis on 06-12-2023 Basophil percentage 0-5 SEEN /hpf 0-5 [facility] Basophil percentage 7.1 g/dL 6.4-8.2 [facility] Basophil percentage 0.60 mg/dL 0.20-1.00 [facility] Bilirubin [Mass/Vol] 0.60 mg/dL 0.20-1.00 [facility] Comment on above: For patients on eltr ombopag therapy, use of Dimension [place] TBIL is not recommended. Protein [Mass/Vol] 7.1 g/dL 6.4-8.2 [facility] Bilirubin Test strip Ql (U)O rdered By: Anju Alexis on 06-12-2023 Bilirubin Ql (U) Negative Negative [facility] Direct bilirubinOrdered By: Anju Alexis on 06-12-2023 Bilirubin.direct [Mass/Vol] 0.30 mg/dL 0.00-0.30 [facility] Ketones Test strip Ql (U)Ord ered By: Anju Alexis on 06-12-2023 Ketones Ql (U) 15 mg/dl Negative [facility] Laboratory - Chemistry and C hemistry - challengeOrdered By: Anju Alexis on 06-12-2023 ALP [Catalytic activity/Vol] 153 U/L 45-117 [facility] ALT [Catalytic activity/Vol] 41 U/L 16- [facility] Globulin (S) [Mass/Vol] 4.5 g/dL 2.2-4.2 [facility] Mucus LM Ql (Urine sed)Order ed By: Anju Alexis on 06-12-2023 Mucus Ql (Urine sed) 0 SEEN /hpf [facility] Nitrite Test strip Ql (U)Ord ered By: Anju Alexis on 06-12-2023 Nitrite Ql (U) Negative Negative [facility] No Panel InformationOrdered By: Anju Alexis on 06-12-2023 Troponin I High Sensitivity 11 pg/mL 3.0-78.0 [facility] Comment on above: Please Note: New Beualh t Units and Gender Specific Reference Ranges. For more information see Policy Stat Procedure [place] High Sensitivity Troponin (TNIH) and attachments. 4.5 g/dL 2.2-4.2 [facility] 11 pg/mL 3.0-78.0 [facility] 153 U/L 45- [facility] 41 U/L - [facility] Protein Test strip Ql (U)Ord ered By: Anju Alexis on 06-12-2023 Protein Ql (U) 30 mg/dl Negative [facility] Serum or plasma albumin noam urement (mass/volume)Ordered By: Anju Alexis on 06-12-2023 Albumin [Mass/Vol] 2.6 g/dL 3.2-5.0 [facility] Squamous epithelial cells de tection in urine sediment by light microscopyOrdered By: Anju Alexis on 06-12-2023 Epithelial cells.squamous LM Ql (Urine sed) 0 SEEN /hpf 0-5 [facility] Thin prep Papanicolaou smear with manual screeningOrdered By: Anju Alexis on 06-12-2023 Thin prep Papanicolaou smear with manual screening 22 U/L 15-37 [facility] Urine blood detectionOrdered By: Anju Alexis on 06-12-2023 RBC Ql (U) 150 /ul Negative [facility] RBC Ql (U) 0-5 SEEN /hpf 0-5 [facility] Urine clarityOrdered By: Mary Ellen Alexis on 06-12-2023 Clarity (U) Clear Clear [facility] Urine coarse granular cast d etectionOrdered By: Anju Alexis on 06-12-2023 Coarse Granular Casts LM Ql (Urine sed) [employer] [facility] Comment on above: Previous reported re sult: 5-10 SEEN /lpfEdited by: GABRIEL on 06/12/23:0825 AMENDED REPORT 06/12/23 0825 COARSE GRAN previously reported as: 5-10 SEEN /lpf Urine color determinationOrd ered By: Anju Alexis on 06-12-2023 Color (U) Yellow Yellow [facility] Urine glucose detectionOrder ed By: Anju Alexis on 06-12-2023 Glucose Ql (U) Normal mg/dl Normal [facility] Urine leukocyte esterase det ection by dipstickOrdered By: Anju Alexis on 06-12-2023 Leukocyte esterase Test strip Ql (U) Negative Negative [facility] Urine pHOrdered By: Anju Alexis on 06-12-2023 pH (U) 6.0 [pH] 5.0 - 8.0 [facility] Urine sediment bacteria coun t by microscopy (number/high power field)Ordered By: Anju Alexis on 06-12-2023 Bacteria LM.HPF (Urine sed) [#/Area] Not Reportable [facility] Urine sediment fine granular cast count by microscopy (number/low power field)Ordered By: Anju Alexis on 06-12-2023 Fine Granular Casts LM.LPF (Urine sed) [#/Area] 5-10 SEEN /lpf 0-5 [facility] Urine specific gravity measu rementOrdered By: Anju Alexis on 06-12-2023 Specific gravity (U) [Rel density] 1.020 1.002-1.03 0 [facility] Urobilinogen Auto test strip Ql (U)Ordered By: Anju Alexis on 06-12-2023 Urobilinogen Ql (U) Normal mg/dl Normal [facility] Absolute lymphocyte countOrd ered By: Israel Hagan on 06-07-2023 Lymphocytes Auto (Unsp spec) [#/Vol] 0.55 10*3/uL 0.83-4.51 [facility] Amorphous sediment detection in urine sediment by light microscopyOrdered By: Israel Molinaone on 06-07-2023 Amorphous sediment LM Ql (Urine sed) 1+ URATE [facility] Basophil percentageOrdered B y: Israel Molinaone on 06-07-2023 Basophil percentage 0 SEEN /hpf 0-5 [facility] Basophil percentage 158 mg/dL 74-106 [facility] Basophil percentage 137 mmol/L 136-145 [facility] Basophil percentage 4.2 mmol/L 3.5-5.1 [facility] Basophil percentage 107 mmol/L 98-107 [facility] Basophils (Bld) [#/Vol] 10.3 10*3/uL 4.4-11.0 [facility] Basophils (Bld) [#/Vol] 8.7 10*3/uL 2.0-7.7 [facility] Basophils/100 WBC (Bld) 0.4 % 0-1 [facility] Basophils/100 WBC (Bld) 84.7 % 47-70 [facility] Basophils/100 WBC (Bld) 0.3 % 0-5 [facility] [place] Chloride [Moles/Vol] 107 mmol/L 98-107 [facility] Eosinophils/100 WBC (Bld) 0.3 % 0-5 [facility] Glucose [Mass/Vol] 158 mg/dL 74-106 [facility] Comment on above: Fasting Glucose resu lt greater than or equal to 126 mg/dL suggests DIABETES MELLITUS per A.D.A. criteria. Neutrophils (Bld) [#/Vol] 8.7 10*3/uL 2.0-7.7 [facility] Neutrophils/100 WBC (Bld) 84.7 % 47-70 [facility] Potassium [Moles/Vol] 4.2 mmol/L 3.5-5.1 [facility] Sodium [Moles/Vol] 137 mmol/L 136-145 [facility] WBC (Bld) [#/Vol] 10.3 10*3/uL 4.4-11.0 [facility] Bilirubin Test strip Ql (U)O rdered By: Israel Hagan on 06-07-2023 Bilirubin Ql (U) Negative Negative [facility] Blood erythrocytes count (nu mber/volume)Ordered By: Israel Hagan on 06-07-2023 RBC (Bld) [#/Vol] 4.64 10*6/uL 4.6-6.2 [facility] Blood hemoglobin measurement (mass/volume)Ordered By: Israel Hagan on 06-07-2023 Hemoglobin (Bld) [Mass/Vol] 13.8 g/dL 13.0-16.5 [facility] Blood lymphocytes/100 leukoc ytesOrdered By: Israel Hagan on 06-07-2023 Lymphocytes/100 WBC (Bld) 5.4 % 19-41 [facility] Blood manual differential co mment interpretation (narrative result)Ordered By: Israel Hagan on 06-07-2023 Manual differential comment Fred (Bld) [Interp] SCANNED [facility] Comment on above: LYMPHOPENIA NOTED Blood monocytes/100 leukocyt esOrdered By: Israel Hagan on 06-07-2023 Monocytes/100 WBC (Bld) 8.5 % 0-10 [facility] Blood platelet mean volumeOr dered By: Israel Hagan on 06-07-2023 Platelet mean volume (Bld) [Entitic vol] 9.5 fL 6.2-12.0 [facility] Determination of erythrocyte mean corpuscular volume (MCV)Ordered By: Israel Hagan on 06-07-2023 MCV (RBC) [Entitic vol] 93.8 fL 80-94 [facility] Hematocrit Auto (Bld) [Volum e fraction]Ordered By: Israel Hagan on 06-07-2023 Hematocrit (Bld) [Volume fraction] 43.5 % 40-54 [facility] Ketones Test strip Ql (U)Ord ered By: Israel Hagan on 06-07-2023 Ketones Ql (U) Negative Negative [facility] Laboratory - Chemistry and C hemistry - challengeOrdered By: Israel Hagan on 06-07-2023 CO2 [Moles/Vol] 27.0 mmol/L 21.0-32.0 [facility] Urea nitrogen/Creatinine [Mass ratio] 13.6 mg/mg 10-20 [facility] Laboratory - Hematology and Cell countsOrdered By: Israel Hagan on 06-07-2023 Erythrocyte distribution width (RBC) [Entitic vol] 44.4 fL 35.1-43.9 [facility] Erythrocyte distribution width (RBC) [Ratio] 12.9 % 11.6-14.6 [facility] Immature granulocytes/100 WBC (Bld) 0.700 % 0.0-0.9 [facility] Comment on above: IG% - Immature Granu locytes (promyelocytes, myelocytes and metamyelocytes) > 1% indicates that a LEFT SHIFT is Present. MCH (RBC) [Entitic mass] 29.7 pg 27.0-32.0 [facility] Nucleated RBC/100 WBC (Bld) [Ratio] 0 % 0-5 [facility] MCHC Auto (RBC) [Mass/Vol]Or dered By: Israel Hagan on 06-07-2023 MCHC (RBC) [Mass/Vol] 31.7 g/dL 32-36 [facility] Mucus LM Ql (Urine sed)Order ed By: Israel Hagan on 06-07-2023 Mucus Ql (Urine sed) 0 SEEN /hpf [facility] Nitrite Test strip Ql (U)Ord ered By: Israel Hagan on 06-07-2023 Nitrite Ql (U) Negative Negative [facility] No Panel InformationOrdered By: Israel Hagan on 06-07-2023 Estimated Creatinine Clearance Calc 25.25 ml/min [facility] Estimated GFR (MDRD) Amer 31 mL/min >60 [facility] Comment on above: GFR Calc Estimated GFR (MDRD) Non-Af Amer 26 mL/min >60 [facility] Comment on above: Non- GFR Calc 29.7 pg 27.0-32.0 [facility] 12.9 % 11.6-14.6 [facility] 44.4 fl 35.1-43.9 [facility] 0.700 % 0.0-0.9 [facility] 0 % 0-5 [facility] 26 mL/min >60 [facility] 31 mL/min >60 [facility] 25.25 ml/min [facility] 13.6 RATIO 10-20 [facility] 27.0 mmol/L 21.0-32.0 [facility] Platelets bldOrdered By: Rio Hagan on 06-07-2023 Platelets (Bld) [#/Vol] 348 10*3/uL 150-450 [facility] Protein Test strip Ql (U)Ord ered By: Israel Hagan on 06-07-2023 Protein Ql (U) 30 mg/dl Negative [facility] Serum or plasma calcium noam urement (mass/volume)Ordered By: Israel Hagan on 06-07-2023 Calcium [Mass/Vol] 8.9 mg/dL 8.5-10.1 [facility] Serum or plasma creatinine m easurement (mass/volume)Ordered By: Israel Hagan on 06-07-2023 Creatinine [Mass/Vol] 2.57 mg/dL 0.70-1.30 [facility] Comment on above: The validity of the calculated GFR & GFRAA in patients over 70 years has not been determined. Clinical correlation is essential. Serum or plasma urea nitroge n measurement (mass/volume)Ordered By: Israel Hagan on 06-07-2023 Urea nitrogen [Mass/Vol] 35 mg/dL 7-18 [facility] Squamous epithelial cells de tection in urine sediment by light microscopyOrdered By: Israel Hagan on 06-07-2023 Epithelial cells.squamous LM Ql (Urine sed) 0-5 SEEN /hpf 0-5 [facility] Thin prep Papanicolaou smear with manual screeningOrdered By: Israel Hagan on 06-07-2023 Thin prep Papanicolaou smear with manual screening 3 5-15 [facility] Urine blood detectionOrdered By: Israel Hagan on 06-07-2023 RBC Ql (U) 150 /ul Negative [facility] RBC Ql (U) 5-10 SEEN /hpf 0-5 [facility] Urine clarityOrdered By: Rio Hagan on 06-07-2023 Clarity (U) Sl. Cloudy Clear [facility] Urine color determinationOrd ered By: Israel Hagan on 06-07-2023 Color (U) Yellow Yellow [facility] Urine glucose detectionOrder ed By: Israel Hagan on 06-07-2023 Glucose Ql (U) Normal mg/dl Normal [facility] Urine leukocyte esterase det ection by dipstickOrdered By: Israel Hagan on 06-07-2023 Leukocyte esterase Test strip Ql (U) Negative Negative [facility] Urine pHOrdered By: Israel Hagan on 06-07-2023 pH (U) 5.0 [pH] 5.0 - 8.0 [facility] Urine sediment bacteria coun t by microscopy (number/high power field)Ordered By: Israel Hagan on 06-07-2023 Bacteria LM.HPF (Urine sed) [#/Area] 0 /[HPF] None Seen [facility] Urine sediment fine granular cast count by microscopy (number/low power field)Ordered By: Israel Hagan on 06-07-2023 Fine Granular Casts LM.LPF (Urine sed) [#/Area] 0-5 SEEN /lpf 0-5 [facility] Urine specific gravity measu rementOrdered By: Israel Hagan on 06-07-2023 Specific gravity (U) [Rel density] 1.020 1.002-1.03 0 [facility] Urobilinogen Auto test strip Ql (U)Ordered By: Israel Hagan on 06-07-2023 Urobilinogen Ql (U) Normal mg/dl Normal [facility] Absolute lymphocyte countOrd ered By: Anju Alexis on 05-25-2023 Lymphocytes Auto (Unsp spec) [#/Vol] 0.88 10*3/uL 0.83-4.51 [facility] Basophil percentageOrdered B y: Anju Alexis on 05-25-2023 Basophil percentage 132 mg/dL 74-106 [facility] [place] Basophil percentage 7.4 g/dL 6.4-8.2 [facility] Basophil percentage 0.90 mg/dL 0.20-1.00 [facility] Basophil percentage 138 mmol/L 136-145 [facility] [place] Basophil percentage 3.7 mmol/L 3.5-5.1 [facility] Basophil percentage 108 mmol/L 98-107 [facility] [place] Basophils (Bld) [#/Vol] 8.8 10*3/uL 4.4-11.0 [facility] Basophils (Bld) [#/Vol] 6.9 10*3/uL 2.0-7.7 [facility] Basophils/100 WBC (Bld) 0.5 % 0-1 [facility] Basophils/100 WBC (Bld) 78.9 % 47-70 [facility] Bilirubin [Mass/Vol] 0.90 mg/dL 0.20-1.00 [facility] Comment on above: For patients on eltr ombopag therapy, use of Dimension [place] TBIL is not recommended. Chloride [Moles/Vol] 108 mmol/L 98-107 [facility] Eosinophils/100 WBC (Bld) 0.5 % 0-5 [facility] Glucose [Mass/Vol] 132 mg/dL 74-106 [facility] Comment on above: Fasting Glucose resu lt greater than or equal to 126 mg/dL suggests DIABETES MELLITUS per A.D.A. criteria. Neutrophils (Bld) [#/Vol] 6.9 10*3/uL 2.0-7.7 [facility] Neutrophils/100 WBC (Bld) 78.9 % 47-70 [facility] Potassium [Moles/Vol] 3.7 mmol/L 3.5-5.1 [facility] Protein [Mass/Vol] 7.4 g/dL 6.4-8.2 [facility] Sodium [Moles/Vol] 138 mmol/L 136-145 [facility] WBC (Bld) [#/Vol] 8.8 10*3/uL 4.4-11.0 [facility] Blood erythrocytes count (nu mber/volume)Ordered By: Anju Alexis on 05-25-2023 RBC (Bld) [#/Vol] 5.12 10*6/uL 4.6-6.2 [facility] [place] Blood hemoglobin measurement (mass/volume)Ordered By: Anju Alexis on 05-25-2023 Hemoglobin (Bld) [Mass/Vol] 15.4 g/dL 13.0-16.5 [facility] Blood lymphocytes/100 leukoc ytesOrdered By: Anju Alexis on 05-25-2023 Lymphocytes/100 WBC (Bld) 10.0 % 19-41 [facility] Blood monocytes/100 leukocyt esOrdered By: Anju Alexis on 05-25-2023 Monocytes/100 WBC (Bld) 9.8 % 0-10 [facility] Blood platelet mean volumeOr dered By: Anju Alexis on 05-25-2023 Platelet mean volume (Bld) [Entitic vol] 10.4 fL 6.2-12.0 [facility] COVID-19 virus antigen assay Ordered By: Anju Alexis on 05-25-2023 SARS-CoV-2 (COVID-19) Ag IA.rapid Ql (Resp) [facility] SARS-CoV-2 (COVID-19) Ag IA.rapid Ql (Resp) [facility] Determination of erythrocyte mean corpuscular volume (MCV)Ordered By: Anju Alexis on 05-25-2023 MCV (RBC) [Entitic vol] 93.9 fL 80-94 [facility] Direct bilirubinOrdered By: Anju Alexis on 05-25-2023 Bilirubin.direct [Mass/Vol] 0.24 mg/dL 0.00-0.30 [facility] Hematocrit Auto (Bld) [Volum e fraction]Ordered By: Anju Alexis on 05-25-2023 Hematocrit (Bld) [Volume fraction] 48.1 % 40-54 [facility] Laboratory - Chemistry and C hemistry - challengeOrdered By: Anju Alexis on 05-25-2023 ALP [Catalytic activity/Vol] 66 U/L 45-117 [facility] ALT [Catalytic activity/Vol] 21 U/L 16-61 [facility] CO2 [Moles/Vol] 25.0 mmol/L 21.0-32.0 [facility] Globulin (S) [Mass/Vol] 3.7 g/dL 2.2-4.2 [facility] Lipase [Catalytic activity/Vol] 34 U/L 13-75 [facility] Comment on above: Please note:LIPASE r evised reference range effective 22. New Lipase methodology. Expected to produce lower values than the previous assay method. NEW Reference Range: 13 - 75 U/L Urea nitrogen/Creatinine [Mass ratio] 13.7 mg/mg 10-20 [facility] Laboratory - Hematology and Cell countsOrdered By: Anju Alexis on 05-25-2023 Erythrocyte distribution width (RBC) [Entitic vol] 46.2 fL 35.1-43.9 [facility] Erythrocyte distribution width (RBC) [Ratio] 13.4 % 11.6-14.6 [facility] Immature granulocytes/100 WBC (Bld) 0.300 % 0.0-0.9 [facility] Comment on above: IG% - Immature Granu locytes (promyelocytes, myelocytes and metamyelocytes) > 1% indicates that a LEFT SHIFT is Present. MCH (RBC) [Entitic mass] 30.1 pg 27.0-32.0 [facility] Nucleated RBC/100 WBC (Bld) [Ratio] 0 % 0-5 [facility] MCHC Auto (RBC) [Mass/Vol]Or dered By: Anju Alexis on 05-25-2023 MCHC (RBC) [Mass/Vol] 32.0 g/dL 32-36 [facility] No Panel InformationOrdered By: Anju Alexis on 05-25-2023 Troponin I High Sensitivity 6 pg/mL 3.0-78.0 [facility] Comment on above: Please Note: [place] t Units and Gender Specific Reference Ranges. For more information see Policy Stat Procedure [place] High Sensitivity Troponin (TNIH) and attachments. 6 pg/mL 3.0-78.0 [facility] D-Dimer Quantitative (PE/DVT) 0.35 FEU/ug/m 0.27-0.49 [facility] Comment on above: NORMAL D-Dimer level (<0.50) indicates no DVT or PE. Estimated Creatinine Clearance Calc 30.61 ml/min [facility] Estimated GFR (MDRD) Amer 39 mL/min >60 [facility] Comment on above: GFR Calc Estimated GFR (MDRD) Non-Af Amer 32 mL/min >60 [facility] Comment on above: Non- GFR Calc 30.1 pg 27.0-32.0 [facility] 13.4 % 11.6-14.6 [facility] 46.2 fl 35.1-43.9 [facility] 0.300 % 0.0-0.9 [facility] 0 % 0-5 [facility] 0.35 FEU/ug/m 0.27-0.49 [facility] 32 mL/min >60 [facility] 39 mL/min >60 [facility] 30.61 ml/min [facility] 13.7 RATIO 10-20 [facility] 3.7 g/dL 2.2-4.2 [facility] 34 U/L 13-75 [facility] 66 U/L 45-117 [facility] 21 U/L 16-61 [facility] 25.0 mmol/L 21.0-32.0 [facility] Platelets bldOrdered By: Mary Ellen Alexis on 05-25-2023 Platelets (Bld) [#/Vol] 138 10*3/uL 150-450 [facility] Serum or plasma albumin noam urement (mass/volume)Ordered By: Anju Alexis on 05-25-2023 Albumin [Mass/Vol] 3.7 g/dL 3.2-5.0 [facility] Serum or plasma calcium noam urement (mass/volume)Ordered By: Anju Alexis on 05-25-2023 Calcium [Mass/Vol] 8.6 mg/dL 8.5-10.1 [facility] Serum or plasma creatinine m easurement (mass/volume)Ordered By: Anju Alexis on 05-25-2023 Creatinine [Mass/Vol] 2.12 mg/dL 0.70-1.30 [facility] Comment on above: The validity of the calculated GFR & GFRAA in patients over 70 years has not been determined. Clinical correlation is essential. Serum or plasma urea nitroge n measurement (mass/volume)Ordered By: nAju Alexis on 05-25-2023 Urea nitrogen [Mass/Vol] 29 mg/dL 7-18 [facility] Thin prep Papanicolaou smear with manual screeningOrdered By: Anju Alexis on 05-25-2023 Thin prep Papanicolaou smear with manual screening 15 U/L 15-37 [facility] Thin prep Papanicolaou smear with manual screening 5 5-15 [facility] Absolute lymphocyte countOrd ered By: Delvis Maldonado on 03-14-2023 Lymphocytes Auto (Unsp spec) [#/Vol] 1.12 10*3/uL 0.83-4.51 [facility] Basophil percentageOrdered B y: Delvis Maldonado on 03-14-2023 Basophils/100 WBC (Bld) 1.4 % 0-1 [facility] Bilirubin [Mass/Vol] 0.40 mg/dL 0.20-1.00 [facility] Comment on above: For patients on eltr ombopag therapy, use of Dimension [place] TBIL is not recommended. Chloride [Moles/Vol] 113 mmol/L 98-107 [facility] Cholesterol [Mass/Vol] 209 mg/dL <200 [facility] Comment on above: <200 mg/dL Desirable 200-240 mg/dL Borderline >240 mg/dL High Risk Eosinophils/100 WBC (Bld) 4.6 % 0-5 [facility] Glucose [Mass/Vol] 98 mg/dL 74-106 [facility] Neutrophils (Bld) [#/Vol] 2.6 10*3/uL 2.0-7.7 [facility] Neutrophils/100 WBC (Bld) 59.0 % 47-70 [facility] Potassium [Moles/Vol] 4.7 mmol/L 3.5-5.1 [facility] Protein [Mass/Vol] 7.0 g/dL 6.4-8.2 [facility] Sodium [Moles/Vol] 142 mmol/L 136-145 [facility] Triglyceride [Mass/Vol] 97 mg/dL <199 [facility] Comment on above: The drugs N-Acetylcy steine and Metamizole may falsely depress this assay.Serum Triglycerides Reference Interval Normal <150 mg/dL Borderline high 150 - 199 mg/dL High 200 - 499 mg/dL Very High > or = 500 mg/dL WBC (Bld) [#/Vol] 4.4 10*3/uL 4.4-11.0 [facility] Blood erythrocytes count (nu mber/volume)Ordered By: Delvis Maldonado on 03-14-2023 RBC (Bld) [#/Vol] 4.92 10*6/uL 4.6-6.2 [facility] [place] Blood hemoglobin measurement (mass/volume)Ordered By: Delvis Maldonado on 03-14-2023 Hemoglobin (Bld) [Mass/Vol] 14.7 g/dL 13.0-16.5 [facility] Blood lymphocytes/100 leukoc ytesOrdered By: Delvis Maldonado on 03-14-2023 Lymphocytes/100 WBC (Bld) 25.6 % 19-41 [facility] Blood monocytes/100 leukocyt esOrdered By: Delvis Maldonado on 03-14-2023 Monocytes/100 WBC (Bld) 8.7 % 0-10 [facility] Blood platelet mean volumeOr dered By: Delvis Maldonado on 03-14-2023 Platelet mean volume (Bld) [Entitic vol] 10.5 fL 6.2-12.0 [facility] Determination of erythrocyte mean corpuscular volume (MCV)Ordered By: Delvis Maldonado on 03-14-2023 MCV (RBC) [Entitic vol] 94.5 fL 80-94 [facility] Hematocrit Auto (Bld) [Volum e fraction]Ordered By: Delvis Maldonado on 03-14-2023 Hematocrit (Bld) [Volume fraction] 46.5 % 40-54 [facility] Laboratory - Chemistry and C hemistry - challengeOrdered By: Delvis Maldonado on 03-14-2023 ALP [Catalytic activity/Vol] 71 U/L 45-117 [facility] ALT [Catalytic activity/Vol] 22 U/L 16-61 [facility] CO2 [Moles/Vol] 29.0 mmol/L 21.0-32.0 [facility] Globulin (S) [Mass/Vol] 3.4 g/dL 2.2-4.2 [facility] Urea nitrogen/Creatinine [Mass ratio] 11.7 mg/mg 10-20 [facility] - Hematology and Cell countsOrdered By: Delvis Maldonado on 03-14-2023 Erythrocyte distribution width (RBC) [Entitic vol] 47.6 fL 35.1-43.9 [facility] Erythrocyte distribution width (RBC) [Ratio] 13.7 % 11.6-14.6 [facility] Immature granulocytes/100 WBC (Bld) 0.700 % 0.0-0.9 [facility] Comment on above: IG% - Immature Granu locytes (promyelocytes, myelocytes and metamyelocytes) > 1% indicates that a LEFT SHIFT is Present. MCH (RBC) [Entitic mass] 29.9 pg 27.0-32.0 [facility] Nucleated RBC/100 WBC (Bld) [Ratio] 0 % 0-5 [facility] MCHC Auto (RBC) [Mass/Vol]Or dered By: Delvis Maldonado on 03-14-2023 MCHC (RBC) [Mass/Vol] 31.6 g/dL 32-36 [facility] No Panel InformationOrdered By: Delvis Maldonado on 03-14-2023 Estimated GFR (MDRD) Amer 39 mL/min >60 [facility] Comment on above: GFR Calc Estimated GFR (MDRD) Non-Af Amer 32 mL/min >60 [facility] Comment on above: Non- GFR Calc Prostate Specific Antigen Total 4.89 ng/mL 0.0-4.0 [facility] Comment on above: This test was perfor med using the TPSA assay method for the[employer] chemistry system. Values obtained with differentassay methods cannot be used interchangably.When changing PSA assays in the course of monitoring apatient, additional sequential testing should be carriedout to confirm baseline values. Thyroid Stimulating Hormone (TSH) 3.15 uIU/mL 0.358-3.74 [facility] Urine Microalbumin/Creatinine Ratio 42.8 mg/g CRE <30 [facility] Platelets bldOrdered By: Ginna Maldonado on 03-14-2023 Platelets (Bld) [#/Vol] 144 10*3/uL 150-450 [facility] Serum or plasma albumin noam urement (mass/volume)Ordered By: Delvis Maldonado on 03-14-2023 Albumin [Mass/Vol] 3.6 g/dL 3.2-5.0 [facility] Serum or plasma albumin/glob ulin mass ratioOrdered By: Delvis Maldonado on 03-14-2023 Albumin/Globulin [Mass ratio] 1.1 {ratio} 0.9-2.4 [facility] Serum or plasma calcium noam urement (mass/volume)Ordered By: Delvis Maldonado on 06-29-2023 Calcium [Mass/Vol] 8.6 mg/dL 8.5-10.1 [facility] Serum or plasma cholesterol in HDL measurement (mass/volume)Ordered By: Delvis Maldonado on 03-14-2023 Cholesterol in HDL [Mass/Vol] 72 mg/dL >40 [facility] Comment on above: The drugs N-Acetylcy steine and Metamizole may falsely depress this assay. Reference Range HDL <40 mg/dL Low HDL Cholesterol HDL >or= 60 mg/dL High HDL Cholesterol Serum or plasma cholesterol in VLDL measurement (mass/volume)Ordered By: Delvis Maldonado on 03-14-2023 Cholesterol in VLDL [Mass/Vol] 19 mg/dL 5-40 [facility] Serum or plasma creatinine m easurement (mass/volume)Ordered By: Delvis Maldonado on 03-14-2023 Creatinine [Mass/Vol] 2.14 mg/dL 0.70-1.30 [facility] Comment on above: The validity of the calculated GFR & GFRAA in patients over 70 years has not been determined. Clinical correlation is essential. Serum or plasma low density lipoprotein (LDL) cholesterol measurement (mass/volume)Ordered By: Delvis Maldonado on 03-14-2023 Cholesterol in LDL [Mass/Vol] 118 mg/dL 0-130 [facility] Serum or plasma urea nitroge n measurement (mass/volume)Ordered By: Delvis Maldonado on 03-14-2023 Urea nitrogen [Mass/Vol] 25 mg/dL 7-18 [facility] Thin prep Papanicolaou smear with manual screeningOrdered By: Delvis Maldonado on 03-14-2023 Thin prep Papanicolaou smear with manual screening 16 U/L 15-37 [facility] Thin prep Papanicolaou smear with manual screening 0 5-15 [facility] Thin prep Papanicolaou smear with manual screening 53.9 mg/L NO RANGE EST. [facility] Urine creatinine measurement (mass/volume)Ordered By: Delvis Maldonado on 03-14-2023 Creatinine (U) [Mass/Vol] 126.00 mg/dL NO RANGE EST. [facility] Whole blood hemoglobin A1c/t otal hemoglobin ratio (mass fraction)Ordered By: Delvis Maldonado on 03-14-2023 HbA1c (Bld) [Mass fraction] 6.0 % 3.8-5.6 [facility] Comment on above: Normal < 5.7 % Predi abetic 5.7 - 6.4 % Diabetic >or= 6.5 % Please note range changes. Absolute lymphocyte countOrd ered By: Dr. Barber on 02-12-2023 Lymphocytes Auto (Unsp spec) [#/Vol] 1.01 10*3/uL 0.83-4.51 [facility] Basophil percentageOrdered B y: Dr. Barber on 02-12-2023 Basophils/100 WBC (Bld) 1.1 % 0-1 [facility] Bilirubin [Mass/Vol] 0.40 mg/dL 0.20-1.00 [facility] Comment on above: For patients on eltr ombopag therapy, use of Dimension [place] TBIL is not recommended. Chloride [Moles/Vol] 109 mmol/L 98-107 [facility] Eosinophils/100 WBC (Bld) 4.6 % 0-5 [facility] Glucose [Mass/Vol] 95 mg/dL 74-106 [facility] Neutrophils (Bld) [#/Vol] 2.9 10*3/uL 2.0-7.7 [facility] Neutrophils/100 WBC (Bld) 62.1 % 47-70 [facility] Potassium [Moles/Vol] 4.4 mmol/L 3.5-5.1 [facility] Protein [Mass/Vol] 7.2 g/dL 6.4-8.2 [facility] Sodium [Moles/Vol] 141 mmol/L 136-145 [facility] WBC (Bld) [#/Vol] 4.6 10*3/uL 4.4-11.0 [facility] Blood erythrocytes count (nu mber/volume)Ordered By: Dr. Barber on 02-12-2023 RBC (Bld) [#/Vol] 5.04 10*6/uL 4.6-6.2 [facility] [place] Blood hemoglobin measurement (mass/volume)Ordered By: Dr. Barber on 02-12-2023 Hemoglobin (Bld) [Mass/Vol] 15.1 g/dL 13.0-16.5 [facility] Blood lymphocytes/100 leukoc ytesOrdered By: Dr. Barber on 02-12-2023 Lymphocytes/100 WBC (Bld) 22.0 % 19-41 [facility] Blood monocytes/100 leukocyt esOrdered By: Dr. Barber on 02-12-2023 Monocytes/100 WBC (Bld) 9.8 % 0-10 [facility] Blood platelet mean volumeOr dered By: Dr. Barber on 02-12-2023 Platelet mean volume (Bld) [Entitic vol] 10.2 fL 6.2-12.0 [facility] Determination of erythrocyte mean corpuscular volume (MCV)Ordered By: Dr. Barber on 02-12-2023 MCV (RBC) [Entitic vol] 92.1 fL 80-94 [facility] Hematocrit Auto (Bld) [Volum e fraction]Ordered By: Dr. Barber on 02-12-2023 Hematocrit (Bld) [Volume fraction] 46.4 % 40-54 [facility] Laboratory - Chemistry and C hemistry - challengeOrdered By: Dr. Barber on 02-12-2023 ALP [Catalytic activity/Vol] 77 U/L 45-117 [facility] ALT [Catalytic activity/Vol] 25 U/L 16-61 [facility] CO2 [Moles/Vol] 26.0 mmol/L 21.0-32.0 [facility] Globulin (S) [Mass/Vol] 3.5 g/dL 2.2-4.2 [facility] Urea nitrogen/Creatinine [Mass ratio] 18.9 mg/mg 10-20 [facility] - Hematology and Cell countsOrdered By: Dr. Barber on 02-12-2023 Erythrocyte distribution width (RBC) [Entitic vol] 45.5 fL 35.1-43.9 [facility] Erythrocyte distribution width (RBC) [Ratio] 13.5 % 11.6-14.6 [facility] Immature granulocytes/100 WBC (Bld) 0.400 % 0.0-0.9 [facility] Comment on above: IG% - Immature Granu locytes (promyelocytes, myelocytes and metamyelocytes) > 1% indicates that a LEFT SHIFT is Present. MCH (RBC) [Entitic mass] 30.0 pg 27.0-32.0 [facility] Nucleated RBC/100 WBC (Bld) [Ratio] 0 % 0-5 [facility] MCHC Auto (RBC) [Mass/Vol]Or dered By: Dr. Barber on 02-12-2023 MCHC (RBC) [Mass/Vol] 32.5 g/dL 32-36 [facility] No Panel InformationOrdered By: Dr. Barber on 02-12-2023 Estimated GFR (MDRD) Amer 39 mL/min >60 [facility] Comment on above: GFR Calc Estimated GFR (MDRD) Non-Af Amer 32 mL/min >60 [facility] Comment on above: Non- GFR Calc Platelets bldOrdered By: Dr. Barber on 02-12-2023 Platelets (Bld) [#/Vol] 147 10*3/uL 150-450 [facility] Serum or plasma albumin noam urement (mass/volume)Ordered By: Dr. Barber on 02-12-2023 Albumin [Mass/Vol] 3.7 g/dL 3.2-5.0 [facility] Serum or plasma albumin/glob ulin mass ratioOrdered By: Dr. Barber on 02-12-2023 Albumin/Globulin [Mass ratio] 1.1 {ratio} 0.9-2.4 [facility] Serum or plasma calcium noam urement (mass/volume)Ordered By: Dr. Barber on 02-12-2023 Calcium [Mass/Vol] 8.6 mg/dL 8.5-10.1 [facility] Serum or plasma creatinine m easurement (mass/volume)Ordered By: Dr. Barber on 02-12-2023 Creatinine [Mass/Vol] 2.12 mg/dL 0.70-1.30 [facility] Comment on above: The validity of the calculated GFR & GFRAA in patients over 70 years has not been determined. Clinical correlation is essential. Serum or plasma urea nitroge n measurement (mass/volume)Ordered By: Dr. Barber on 02-12-2023 Urea nitrogen [Mass/Vol] 40 mg/dL 7-18 [facility] Thin prep Papanicolaou smear with manual screeningOrdered By: Dr. Barber on 02-12-2023 Thin prep Papanicolaou smear with manual screening 18 U/L 15-37 [facility] Thin prep Papanicolaou smear with manual screening 6 5-15 [facility] Basophil percentageOrdered B y: Dr. Maldonado on 09-11-2022 Bilirubin [Mass/Vol] 0.40 mg/dL 0.20-1.00 [facility] Comment on above: For patients on eltr ombopag therapy, use of Dimension [place] TBIL is not recommended. Chloride [Moles/Vol] 110 mmol/L 98-107 [facility] Cholesterol [Mass/Vol] 210 mg/dL <200 [facility] Comment on above: <200 mg/dL Desirable 200-240 mg/dL Borderline >240 mg/dL High Risk Glucose [Mass/Vol] 106 mg/dL 74-106 [facility] Comment on above: Fasting Glucose resu lt from 100 to 125 mg/dL suggests IMPAIRED HOMEOSTASIS per A.D.A. criteria. Potassium [Moles/Vol] 4.5 mmol/L 3.5-5.1 [facility] Protein [Mass/Vol] 6.8 g/dL 6.4-8.2 [facility] Sodium [Moles/Vol] 142 mmol/L 136-145 [facility] Triglyceride [Mass/Vol] 80 mg/dL <199 [facility] [place] Comment on above: The drugs N-Acetylcy steine and Metamizole may falsely depress this assay.Serum Triglycerides Reference Interval Normal <150 mg/dL Borderline high 150 - 199 mg/dL High 200 - 499 mg/dL Very High > or = 500 mg/dL Laboratory - Chemistry and C hemistry - challengeOrdered By: Dr. Maldonado on 09-11-2022 ALP [Catalytic activity/Vol] 67 U/L 45-117 [facility] ALT [Catalytic activity/Vol] 25 U/L 16-61 [facility] CO2 [Moles/Vol] 29.0 mmol/L 21.0-32.0 [facility] Globulin (S) [Mass/Vol] 3.3 g/dL 2.2-4.2 [facility] [place] Urea nitrogen/Creatinine [Mass ratio] 13.9 mg/mg 10-20 [facility] No Panel InformationOrdered By: Dr. Maldonado on 09-11-2022 Estimated GFR (MDRD) Amer 38 mL/min >60 [facility] Comment on above: GFR Calc Estimated GFR (MDRD) Non-Af Amer 32 mL/min >60 [facility] Comment on above: Non- GFR Calc Parathyroid Hormone (Intact) 71.3 pg/mL 18.4-80.1 [facility] Prostate Specific Antigen Screen 4.59 ng/mL 0.00-4.00 [facility] Comment on above: This test was perfor med using the TPSA assay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 09-02-2023 16:07-0500 Body mass index (BMI) [Ratio] 26.3 kg/m2 Dr. Delvis Maldonado Work Phone: [facility] 09-02-2023 16:07-0500 Body weight 80.[address] Delvis Maldonado Work Phone: [facility] 09-02-2023 16:07-0500 Diastolic blood pressure 70 mm[Hg] Dr. Delvis Maldonado Work Phone: [facility] 09-02-2023 16:07-0500 Heart rate 81 /min Dr. Delvis Maldonado Work Phone: [facility] 09-02-2023 16:07-0500 Respiratory rate 18 /min Dr. Delvis Maldonado Work Phone: [facility] 09-02-2023 16:07-0500 SaO2% (BldA) [Mass fraction] 97 % Dr. Delvis Maldonado Work Phone: [facility] 09-02-2023 16:07-0500 Systolic blood pressure 124 mm[Hg] Dr. Delvis Maldonado Work Phone: [facility] 08-01-2023 12:00-0500 Body weight 77.[address] Delvis Maldonado Work Phone: [facility] 07-24-2023 08:44-0500 Diastolic blood pressure 84 mm[Hg] Dr. Delvis Maldonado Work Phone: [facility] 07-24-2023 08:44-0500 Heart rate 90 /min Dr. Delvis Maldonado Work Phone: [facility] 07-24-2023 08:44-0500 Systolic blood pressure 138 mm[Hg] Dr. Delvis Maldonado Work Phone: [facility] 07-24-2023 08:40-0500 Body temperature 97.9 [degF] Dr. Delvis Maldonado Work Phone: [facility] 07-24-2023 08:40-0500 Respiratory rate 16 /min Dr. Delvis Maldonado Work Phone: [facility] 07-24-2023 08:40-0500 SaO2% (BldA) [Mass fraction] 97 % Dr. Delvis Maldonado Work Phone: [facility] 07-21-2023 16:22-0500 Body height 175.[address] Delvis Maldonado Work Phone: [facility] 07-21-2023 16:22-0500 Body mass index (BMI) [Ratio] 25.4 kg/m2 Dr. Delvis Maldonado Work Phone: [facility] 07-21-2023 16:22-0500 Body weight [address] Delvis Maldonado Work Phone: [facility] 07-21-2023 14:41-0500 Diastolic blood pressure 61 mm[Hg] Dr. Delvis Maldonado Work Phone: [facility] 07-21-2023 14:41-0500 Heart rate 116 /min Dr. Delvis Maldonado Work Phone: [facility] 07-21-2023 14:41-0500 Respiratory rate 27 /min Dr. Delvis Maldonado Work Phone: [facility] 07-21-2023 14:41-0500 SaO2% (BldA) [Mass fraction] 95 % Dr. Delvis Maldonado Work Phone: [facility] 07-21-2023 14:41-0500 Systolic blood pressure 105 mm[Hg] Dr. Delvis Maldonado Work Phone: [facility] 07-21-2023 12:47-0500 Body height 175.[address] Delvis Maldonado Work Phone: [facility] 07-21-2023 12:47-0500 Body mass index (BMI) [Ratio] 25.2 kg/m2 Dr. Delvis Maldonado Work Phone: [facility] 07-21-2023 12:47-0500 Body temperature 98.6 [degF] Dr. Delvis Maldonado Work Phone: [facility] 07-21-2023 12:47-0500 Body weight 77.[address] Delvis Maldonado Work Phone: [facility] 07-07-2023 14:08-0400 Body height 177.[address] Delvis Maldonado Work Phone: [facility] 07-07-2023 14:08-0400 Body mass index (BMI) [Ratio] 23.9 kg/m2 Dr. Delvis Maldonado Work Phone: [facility] 07-07-2023 14:08-0400 Body temperature 98 [degF] Dr. Delvis Maldonado Work Phone: [facility] 07-07-2023 14:08-0400 Body weight 75.[address] Delvis Maldonado Work Phone: [facility] 07-07-2023 14:08-0400 Diastolic blood pressure 79 mm[Hg] Dr. Delvis Maldonado Work Phone: [facility] 07-07-2023 14:08-0400 Heart rate 111 /min Dr. Delvis Maldonado Work Phone: [facility] 07-07-2023 14:08-0400 Respiratory rate 18 /min Dr. Delvis Maldonado Work Phone: [facility] 07-07-2023 14:08-0400 SaO2% (BldA) [Mass fraction] 98 % Dr. Delvis Maldonado Work Phone: [facility] 07-07-2023 14:08-0400 Systolic blood pressure 149 mm[Hg] Dr. Delvis Maldonado Work Phone: [facility] 06-15-2023 15:00-0400 Body temperature 97.4 [degF] Dr. Delvis Maldonado Work Phone: [facility] 06-15-2023 15:00-0400 Diastolic blood pressure 69 mm[Hg] Dr. Delvis Maldonado Work Phone: [facility] 06-15-2023 15:00-0400 Heart rate 99 /min Dr. Delvis Maldonado Work Phone: [facility] 06-15-2023 15:00-0400 Respiratory rate 16 /min Dr. Delvis Maldonado Work Phone: [facility] 06-15-2023 15:00-0400 SaO2% (BldA) [Mass fraction] 99 % Dr. Delvis Maldonado Work Phone: [facility] 06-15-2023 15:00-0400 Systolic blood pressure 130 mm[Hg] Dr. Delvis Maldonado Work Phone: [facility] 06-14-2023 05:00-0400 Body height 177.[address] Delvis Maldonado Work Phone: [facility] 06-14-2023 05:00-0400 Body mass index (BMI) [Ratio] 26.2 kg/m2 Dr. Delvis Maldonado Work Phone: [facility] 06-14-2023 05:00-0400 Body weight 82.[address] Delvis Maldonado Work Phone: [facility] 06-07-2023 19:07-0400 Diastolic blood pressure 86 mm[Hg] Dr. Delvis Maldonado Work Phone: [facility] 06-07-2023 19:07-0400 Heart rate 92 /min Dr. Delvis Maldonado Work Phone: [facility] 06-07-2023 19:07-0400 Respiratory rate 14 /min Dr. Delvis Maldonado Work Phone: [facility] 06-07-2023 19:07-0400 SaO2% (BldA) [Mass fraction] 100 % Dr. Delvis Maldonado Work Phone: [facility] 06-07-2023 19:07-0400 Systolic blood pressure 140 mm[Hg] Dr. Delvis Maldonado Work Phone: [facility] 06-07-2023 15:13-0400 Body mass index (BMI) [Ratio] 26.5 kg/m2 Dr. Delvis Maldonado Work Phone: [facility] 06-07-2023 15:13-0400 Body temperature 97.4 [degF] Dr. Delvis Maldonado Work Phone: [facility] 06-07-2023 15:13-0400 Body weight 83.[address] Delvis Maldonado Work Phone: [facility] 05-25-2023 12:00-0400 Diastolic blood pressure 78 mm[Hg] Dr. Delvis Maldonado Work Phone: [facility] 05-25-2023 12:00-0400 Heart rate 64 /min Dr. Delvis Maldonado Work Phone: [facility] 05-25-2023 12:00-0400 Respiratory rate 16 /min Dr. Delvis Maldonado Work Phone: [facility] 05-25-2023 12:00-0400 SaO2% (BldA) [Mass fraction] 99 % Dr. Delvis Maldonado Work Phone: [facility] 05-25-2023 12:00-0400 Systolic blood pressure 115 mm[Hg] Dr. Delvis Maldonado Work Phone: [facility] 05-25-2023 07:52-0400 Body mass index (BMI) [Ratio] 27.8 kg/m2 Dr. Delvis Maldonado Work Phone: [facility] 05-25-2023 07:52-0400 Body temperature 97.6 [degF] Dr. Delvis Maldonado Work Phone: [facility] 05-25-2023 07:52-0400 Body weight 88.[address] Delvis Maldonado Work Phone: [facility] 02-14-2023 09:37-0400 Body height 177.[address] Delvis Maldonado Work Phone: [facility] 02-14-2023 09:37-0400 Body mass index (BMI) [Ratio] 26.5 kg/m2 Dr. Delvis Maldonado Work Phone: [facility] 02-14-2023 09:37-0400 Body weight 83.[address] Delvis Maldonado Work Phone: [facility] 02-14-2023 09:37-0400 Diastolic blood pressure 64 mm[Hg] Dr. Delvis Maldonado Work Phone: [facility] 02-14-2023 09:37-0400 Heart rate 71 /min Dr. Delvis Maldonado Work Phone: [facility] 02-14-2023 09:37-0400 Respiratory rate 16 /min Dr. Delvis Maldonado Work Phone: [facility] 02-14-2023 09:37-0400 Systolic blood pressure 115 mm[Hg] Dr. Delvis Maldonado Work Phone: [facility] 08-15-2022 10:22-0500 Body height 177.[address] Delvis Maldonado Work Phone: [facility] 08-15-2022 10:17-0500 Body mass index (BMI) [Ratio] 25.4 kg/m2 Dr. Delvis Maldonado Work Phone: [facility] 08-15-2022 10:17-0500 Body weight 80.[address] Delvis Maldonado Work Phone: [facility] 08-15-2022 10:17-0500 Diastolic blood pressure 70 mm[Hg] Dr. Delvis Maldonado Work Phone: [facility] 08-15-2022 10:17-0500 Heart rate 73 /min Dr. Delvis Maldonado Work Phone: [facility] 08-15-2022 10:17-0500 Respiratory rate 16 /min Dr. Delvis Maldonado Work Phone: [facility] 08-15-2022 10:17-0500 SaO2% (BldA) [Mass fraction] 97 % Dr. Delvis Maldonado Work Phone: [facility] 08-15-2022 10:17-0500 Systolic blood pressure 114 mm[Hg] Dr. Delvis Maldonado Work Phone: [facility] 07-31-2022 13:15-0500 Diastolic blood pressure 73 mm[Hg] Sherry Guadarrama MD Work Phone: [facility] 07-31-2022 13:15-0500 Heart rate 96 /min Sherry Guadarrama MD Work Phone: [facility] 07-31-2022 13:15-0500 Respiratory rate 16 /min Sherry Guadarrama MD Work Phone: [facility] 07-31-2022 13:15-0500 SaO2% (BldA) [Mass fraction] 97 % Sherry Guadarrama MD Work Phone: [facility] 07-31-2022 13:15-0500 Systolic blood pressure 123 mm[Hg] Sherry Guadarrama MD Work Phone: [facility] 07-31-2022 12:55-0500 Body temperature 97.5 [degF] Sherry Guadarrama MD Work Phone: [facility] 06-20-2022 09:59-0400 Body height 177.8 cm Sherry Guadarrama MD Work Phone: [facility] 06-20-2022 09:59-0400 Body temperature 97.81 [degF] Sherry Guadarrama MD Work Phone: [facility] 06-20-2022 09:59-0400 Body weight 83.01 kg Sherry Guadarrama MD Work Phone: [facility] 06-20-2022 09:59-0400 Diastolic blood pressure 74 mm[Hg] Sherry Guadarrama MD Work Phone: [facility] 06-20-2022 09:59-0400 Heart rate 71 /min Sherry Guadarrama MD Work Phone: [facility] 06-20-2022 09:59-0400 SaO2% (BldA) [Mass fraction] 95 % Sherry Guadarrama MD Work Phone: [facility] 06-20-2022 09:59-0400 Systolic blood pressure 137 mm[Hg] Sherry Guadarrama MD Work Phone: [facility] 06-14-2022 15:07-0400 Body height 177.8 cm Chris Ornelas MD Work Phone: [facility] 06-14-2022 15:07-0400 Body temperature 97.7 [degF] Chris Ornelas MD Work Phone: [facility] 06-14-2022 15:07-0400 Body weight 83.01 kg Chris Ornelas MD Work Phone: [facility] 06-14-2022 15:07-0400 Diastolic blood pressure 84 mm[Hg] Chris Ornelas MD Work Phone: [facility] 06-14-2022 15:07-0400 Heart rate 89 /min Chris Ornelas MD Work Phone: [facility] 06-14-2022 15:07-0400 SaO2% (BldA) [Mass fraction] 96 % Chris Ornelas MD Work Phone: [facility] 06-14-2022 15:07-0400 Systolic blood pressure 126 mm[Hg] Chris Ornelas MD Work Phone: [facility] 11-23-2021 09:47-0500 Body height 177.[address] Delvis Maldonado Work Phone: [facility] Work Phone: 11-23-2021 09:47-0500 Body weight 80.[address] Delvis Maldonado Work Phone: [facility] Work Phone: 11-23-2021 09:47-0500 Diastolic blood pressure 72 mm[Hg] Dr. Delvis Maldonado Work Phone: [facility] Work Phone: 11-23-2021 09:47-0500 Heart rate 96 /min Dr. Delvis Maldonado Work Phone: [facility] Work Phone: 11-23-2021 09:47-0500 Respiratory rate 16 /min Dr. Delvis Maldonado Work Phone: [facility] Work Phone: 11-23-2021 09:47-0500 SaO2% (BldA) [Mass fraction] 94 % Dr. Delvis Maldonado Work Phone: [facility] Work Phone: 11-23-2021 09:47-0500 Systolic blood pressure 112 mm[Hg] Dr. Delvis Maldonado Work Phone: [facility] Work Phone: 11-24-2020 11:35-0500 Body mass index (BMI) [Ratio] 25.1 kg/m2 Dr. Delvis Maldonado Work Phone: [facility] Work Phone: Encounters Encounter Date Encounter Type Care Provider Facility Start: 04-16-2025 ambulatory Delvis Claudine Facility: [facility] Start: 01-12-2025 End: 01-12-2025 ambulatory Delvis Claudine Facility:[facility] Start: 01-02-2025 End: 01-02-2025 ambulatory Monisha Yoon Facility:[facility] Start: 09-30-2024 End: 09-30-2024 ambulatory Delvis Maldonado Facility:[facility] Start: 09-28-2024 End: 09-28-2024 ambulatory Delvis Maldonado Facility:[facility] Start: 08-26-2024 End: 08-26-2024 ambulatory Monisha Yoon Facility:[facility] Start: 07-15-2024 End: 07-15-2024 ambulatory Frida Barber Facility:[facility] Start: 12-06-2023 End: 12-06-[address] Delvis Maldonado Work Phone: [facility] Work Phone: Start: 12-06-2023 End: 12-06-[address] 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 Sonu Maldonado Work Phone: [facility] Work Phone: Start: 10-08-2023 Non-patient / Non-visit Dr. Sonu Maldonado Work Phone: [facility] Start: 10-08-2023 End: 10-08-[address] Delvis Maldonado Work Phone: [facility] Work Phone: Start: 10-08-2023 End: 10-08-[address] Delvis Maldonado Work Phone: [facility] Work Phone: Start: 09-18-2023 End: 09-18-[address] Delvis Maldonado Work Phone: [facility] Work Phone: Start: 09-18-2023 End: 09-18-2023 Dr. Delvis Maldonado Work Phone: [facility] Work Phone: Start: 09-13-2023 End: 09-13-[address] Delvis Maldonado Work Phone: [facility] Work Phone: Start: 09-13-2023 End: 09-13-[address] [facility] Start: 09-13-2023 End: 09-13-2023 Dr. [facility] Start: 09-02-2023 End: 09-02-[address] Delvis Maldonado Work Phone: [facility] Work Phone: Start: 09-02-2023 End: 09-02-[address] [facility] Maldonado [facility] Work Phone: Start: 09-02-2023 End: 09-02-2023 Dr. Del[facility]donado [facility] Work [facility]: Start: 08-12-2023 End: 08-12-[address] Delvis Maldonado Work Phone: [facility] Work Phone: Start: 08-12-2023 End: 08-12-[address] [facility]donado [facility] Start: 08-12-2023 End: 08-12-2023 Dr. Delvis Maldonado Work Phone: [facility] Work Phone: Start: 08-01-2023 End: 08-15-[address] Delvis Maldonado Work Phone: [facility] Work Phone: Start: 08-01-2023 End: 08-15-[address] [facility]ado [facility] Work [facility] Start: 08-01-[address] [facility]ado [facility] Start: 08-01-2023 End: 08-15-2023 Dr. [facility]ado [facility] Work [facility] Start: 07-22-2023 End: 07-24-2023 Evaluation and management of inpatient Dr. Delvis Maldonado [facility] Work Phone: Start: 07-22-2023 End: 07-24-2023 Dr. [facility]donado [facility] Work Phone: Start: 07-21-2023 Evaluation and management of inpatient Dr. Delvis Maldonado [facility] Work Phone: Start: 07-21-[address] Delvis Maldonado Work Phone: [facility] Work Phone: Start: 07-07-2023 End: 07-07-2023 Emergency department patient visit Dr. Delvis Mladonado Work Phone: [facility] Work Phone: Start: 07-07-2023 End: 07-07-2023 Dr. Delvis Maldonado Work Phone: [facility] Work Phone: Start: 06-27-2023 End: 06-27-[address] Delvis Maldonado Work Phone: [facility] Work Phone: Start: 06-27-2023 End: 06-27-[address] Delvis Maldonado Work Phone: [facility] Work Phone: Start: 06-27-[address] Delvis Maldonado Work Phone: [facility] Work Phone: Start: 06-27-2023 End: 06-27-2023 Dr. Delvis Maldonado Work Phone: [facility] Work Phone: Start: 06-26-2023 End: 06-26-[address] Delvis Maldonado Work Phone: [facility] Work Phone: Start: 06-26-2023 End: 06-26-[address] Delvis Maldonado Work Phone: [facility] Start: 06-26-2023 End: 06-26-2023 Dr. Delvis Maldonado Work Phone: [facility] Start: 06-20-2023 End: 06-20-[address] Del[facility] Maldonado [facility] Work Phone: Start: 06-20-2023 End: 06-20-2023 Dr. Delvis Maldonado Work Phone: [facility], [facility] Work Phone: Start: 06-15-2023 Non-patient / Non-visit Dr. Sonu Maldonado Work Phone: [facility] Work Phone: Start: 06-15-2023 Dr. Delvis porter Work Phone: [facility] Work Phone: Start: 06-14-2023 Non-patient / Non-visit Dr. Sonu Maldonado Work Phone: [facility] Work Phone: Start: 06-14-2023 Dr. Delvis porter Work Phone: [facility] Work Phone: Start: 06-13-2023 Non-patient / Non-visit Dr. Sonu Maldonado Work Phone: [facility] Work Phone: Start: 06-13-2023 Dr. Delvis porter Work Phone: [facility] Work Phone: Start: 06-12-2023 Dr. Delvis porter Work Phone: [facility] Start: 06-12-2023 Non-patient / Non-visit Dr. Sonu Maldonado Work Phone: [facility] Start: 06-12-2023 End: 06-15-2023 Evaluation and management of inpatient Dr. Delvis Maldonado [facility] Work [facility]: Start: 06-12-2023 End: 06-15-2023 Dr. Delvis Maldonado Work Phone: [facility] Work Phone: Start: 06-07-2023 End: 06-07-2023 Emergency department patient visit Dr. Delvis Maldonado Work Phone: [facility] Work Phone: Start: 06-07-2023 End: 06-07-2023 Dr. Delvis Maldonado Work Phone: [facility] Work Phone: Start: 06-05-[address] Delvis Maldonado Work Phone: [facility] Work Phone: Start: 05-25-2023 End: 05-25-2023 Emergency department patient visit Dr. Delvis Maldonado Work Phone: [facility] Work Phone: Start: 05-25-2023 End: 05-25-2023 Dr. Delvis Maldonado Work Phone: [facility] Work Phone: Start: 03-14-2023 End: 03-14-[address] Delvis Maldonado Work Phone: [facility] Work Phone: Start: 03-14-2023 End: 03-14-[address] [facility] Maldonado [facility] Start: 02-14-2023 End: 02-14-[address] Delvis Maldonado Work Phone: [facility] Start: 02-12-2023 End: 02-12-[address] Delvis Maldonado Work Phone: [facility] Work Phone: Start: 02-12-2023 End: 02-12-[address] [facility] Maldonado [facility] Start: 11-29-2022 End: 11-29-[address] Delvis Maldonado Work Phone: [facility] Work Phone: Start: 11-29-2022 End: 11-29-[address] [facility] Maldonado [facility] Start: 09-11-2022 End: 09-11-[address] Delvis Maldonado Work Phone: [facility] Work Phone: Start: 09-11-2022 End: 09-11-[address] [facility] Maldonado [facility] Start: 08-15-2022 End: 08-15-[address] Delvis Maldonado Work Phone: [facility] Start: 08-14-2022 End: 08-14-[address] Delvis Maldonado Work Phone: [facility] Work Phone: Start: 08-14-2022 End: 08-14-[address] Del[facility] Maldonado [facility] Start: 07-31-2022 ambulatory LATOYA DONG Facility:[facility] Start: 07-31-2022 End: 07-31-2022 Subsequent hospital visit by physician Sherry Guadarrama MD Work Phone: Procedures Comment on above: Anal fissure [K60.2] Start: 06-20-2022 End: 06-20-2022 ambulatory SHERRY GUADARRAMA Facility:[facility] Start: 06-20-2022 End: 06-20-2022 Patient encounter procedure Sherry Guadarrama MD Work Phone: Colorectal Surgery Comment on above: Anal fissure (Primar y Dx) Start: 06-14-2022 End: 06-14-2022 ambulatory CHRIS ORNELAS Facility:[facility] Start: 06-14-2022 End: 06-14-2022 Patient encounter procedure Chris Ornelas MD Work Phone: General Surgery Comment on above: Anal or rectal pain (Primary Dx); Mass of anus Start: 02-26-2022 End: 02-26-[address] [facility] [facility] Start: 01-26-[address] Delvis childress Work Phone: [facility] Start: 11-23-2021 End: 11-23-[address] Delvis Maldonado Work Phone: [facility] Start: 11-21-2021 End: 11-21-[address] Delvis Maldonado Work Phone: [facility] Procedures Date Procedure Procedure Detail Performing Clinician Start: 11-19-2023 Cardiac mri w/wo contrast & further seq Alla Jaquez MD Work Phone: Start: 10-08-2023 Radionuclide imaging of perfusion of myocardium under exercise stress Dr. Delvis Maldonado Work Phone: Start: 07-21-2023 Bacteria identified in Blood by Culture Dr. Delvis Maldonado Work Phone: Start: 07-21-[address] Delvis Maldonado Work Phone: Start: 07-21-2023 Dr. Delvis Maldonado Work Phone: Start: 07-21-[address] Delvis Maldonado Work Phone: Start: 07-21-[address] Delvis Maldonado Work Phone: Start: 07-21-2023 CT of abdomen and pelvis without contrast Dr. Delvis Maldonado Work Phone: Start: 07-07-2023 Plain chest X-ray Dr. Delvis Maldonado Work Phone: Start: 07-07-[address] Delvis Maldonado Work Phone: Start: 06-20-2023 Diagnostic radiography of abdomen Dr. Delvis Maldonado Work Phone: Start: 06-14-[address] Delvis Maldonado Work Phone: Start: 06-12-2023 CT of chest, abdomen and pelvis without contrast Dr. Delvis Maldonado Work Phone: Start: 06-07-2023 CT of abdomen and pelvis without contrast Dr. Delvis Maldonado Work Phone: Start: 05-25-[address] Delvis Maldonado Work Phone: Start: 05-25-2023 Plain chest X-ray Dr. Delvis Maldonado Work Phone: Start: 07-31-2022 Level iv surg pathology gross&microscopic exam Sherry Guadarrama MD Work Phone: Start: 07-31-2022 Sigmoidoscopy flx dx w/collj spec br/wa if pfrmd Sherry Guadarrama MD Work Phone: Start: 12-25-2015 History of placement of stent for coronary artery disease History of coronary artery stent placement Dr. Delvis Maldonado Work Phone: Plan of Treatment Date Care Activity Detail Author Start: 09-16-2023 Advance Directive Discussion Advance Directive Discussion [facility] Start: 09-16-2023 Depression Assessment Depression Ass essment [facility] Start: 07-24-2023 Patient discharge [facility] Start: 07-23-2023 [facility] Start: 07-23-2023 Consultation [facility] Start: 07-22-2023 Admission procedure [facility] Start: 07-22-2023 Admission procedure [facility] Start: 07-22-2023 Blood chemistry [facility] Start: 07-22-2023 Complete blood count [facility] Start: 07-21-2023 Following clinical pathway protocol [facility] Start: 07-21-2023 Bacteria identified in Blood by Culture Blood Culture [facility] Start: 07-21-2023 Bacteria identified in Urine by Culture Urine Culture [facility] Start: 07-21-2023 Measuring intake and output [facility] Start: 07-21-2023 Patient education [facility] Start: 07-21-2023 Provision of activit y privileges [facility] Start: 07-21-2023 Taking patient vital signs [facility] Start: 07-21-2023 Ureteroscopy Cysto,Ureteros copy,Inse rtion Stent (Not Applicable) [facility] Start: 07-21-2023 Vital signs measurements [facility] Start: 07-21-2023 [facility] Start: 07-21-2023 End: 07-21-2023 Admission procedure [facility] Start: 07-21-2023 Hospital admission, emergency, from emergency room, medical nature [facility] Start: 07-21-2023 Fluoroscopic guidance O.R. Fluoro fo r C-Arm [facility] Start: 07-21-2023 End: 07-21-2023 Blood culture [facility] Start: 07-21-2023 End: 07-22-2023 [facility] Start: 07-07-2023 [facility] Start: 07-07-2023 End: 07-07-2023 [facility] Start: 07-07-2023 Bacteria identified in Urine by Culture Urine Culture [facility] Start: 06-15-2023 Patient discharge [facility] Start: 06-12-2023 End: 06-12-2023 Following clinical pathway protocol [facility] Start: 06-12-2023 Ambulation without limitation [facility] Start: 06-12-2023 Assessment of risk o f venous thromboembolism [facility] Start: 06-12-2023 Consultation [facility] Start: 06-12-2023 Documentation procedure [facility] Start: 06-12-2023 Insertion of cathete r into peripheral vein [facility] Start: 06-12-2023 Measuring intake and output [facility] Start: 06-12-2023 Providing care accor ding to standard [facility] Start: 06-12-2023 [facility] Start: 06-12-2023 Verification routine [facility] Start: 06-12-2023 Admission procedure [facility] Start: 06-12-2023 Consultation [facility] Start: 05-25-2023 [facility] Start: 05-17-2023 Covid-19 Vaccine ( season) Covid-19 Vaccine ( season) [facility] Start: 05-17-2023 Influenza vaccination Influenza Vacc ine (#1) [facility] Start: 09-16-2022 Advance Directive Discussion Advance Directive Discussion [facility] Start: 09-16-2022 Depression Assessment Depression Ass essment [facility] Start: 09-02-2022 Shingrix Vaccine (2 of 2) Maurice grix Vaccine (2 of 2) [facility] Start: 05-17-2022 Influenza vaccination INFLUENZA (#1) [facility] Start: 03-28-2022 COVID-19 VACCINE (5 - Booster for Moderna series) COVID-19 VACCINE (5 - Booster for Moderna series) [facility] Start: 09-16-2021 ADVANCE DIRECTIVE DISCUSSION ADVANCE DIRECTIVE DISCUSSION [facility] Start: 09-16-2021 DEPRESSION ASSESSMENT DEPRESSION ASS ESSMENT [facility] Start: 2006 RSV Vaccine (1 - 1-d ose 60+ series) RSV Vaccine (1 - 1-dose 60+ series) [facility] Start: 1991 COLOGUARD (FIT-DNA) COLOGUARD (FIT-D NA) [facility] Start: 1991 Colonoscopy COLONOSCOPY [facility] Start: 1991 COLORECTAL CANCER SCREENING COLORECTAL CANCER SCREENING [facility] Start: [address] COLONOGRAPHY [facility] Start: 1991 DIABETES SCREEN DIABETES SCREEN [facility] Start: 1991 Diabetes Screening Diabetes Screenin g [facility] Start: 1991 FECAL OCCULT BLOOD FECAL OCCULT BLOO D [facility] Start: 1991 SIGMOIDOSCOPY SIGMOIDOSCOPY [facility] Start: 1981 LIPID SCREEN LIPID SCREEN [facility] Start: 1965 SHINGRIX VACCINE (1 of 2) MAURICE GRIX VACCINE (1 of 2) [facility] Start: 1965 Urine microalbumin profile [facility] Start: 1964 HEPATITIS C SCREENING HEPATITIS C [facility] Start: 1964 Hepatitis C screening Hepatitis C [facility] Start: 1952 PNEUMOCOCCAL: 65+ (1 - PCV) PNEUMOCOCCAL: 65+ (1 - PCV) [facility] Anion gap measurement [facility] BUN/Creatinine ratio [facility] Calcium [Mass/volume ] in Serum or Plasma [facility] Calculus analysis [facility] Calculus analysis [facility] Carbon dioxide, tota l [Moles/volume] in Serum or Plasma [facility] Chloride [Moles/volu me] in Serum or Plasma [facility] Creatinine [Moles/vo lume] in Serum or Plasma [facility] Glucose [Mass/volume ] in Serum or Plasma [facility] Hematocrit [Volume Fraction] of Blood [facility] Hemoglobin [Mass/vol ume] in Blood [facility] Leukocytes [#/volume ] in Blood [facility] Mean corpuscular hemoglobin concentration determination [facility] Mean corpuscular hemoglobin determination [facility] Measurement of renal function [facility] Measurement of weigh t of [facility] Measurement of weigh t of [facility] Origin of Stone [facility] Origin of Stone [facility] Patient Education [facility] Work Phone: Patient referral [facility] Work Phone: Platelets [#/volume] in Blood [facility] Potassium [Moles/vol ume] in Serum or Plasma [facility] Radionuclide imaging of perfusion of myocardium under exercise stress [facility] Red blood cell count [facility] Red cell distributio n width determination [facility] End: 06-20-2023 SIGMOIDOSCOPY SIGMOIDOSCOPY Endoscopy Routine Anal fissure 1 Occurrences starting 06/20/2022 until 06/20/2023 [facility] Work Phone: Comment on above: 1 Occurrences starti ng 06/20/2022 until 06/20/2023 Sodium [Moles/volume ] in Serum or Plasma [facility] Specimen color determination [facility] Specimen color determination [facility] Urea nitrogen [Mass/volume] in Serum or Plasma [facility] Immunizations Immunization Date Immunization Notes Care Provider Fa cility 06-13-2023 Influenza High-Dose Quadrivalent Dr. Delvis Maldonado Work Phone: [facility] 09-13-[address] Delvis Maldonado Work Phone: [facility] 07-12-2022 Pneumococcal Vaccine PCV20 (Prevnar 20) Dr. Delvis Maldonado Work Phone: [facility] 07-08-2022 influenza, injectabl e, quadrivalent, preservative free Dr. Delvis Maldonado Work Phone: [facility] 07-08-[address] Delvsi Maldonado Work Phone: [facility] 07-08-2022 influenza virus vaccine, unspecified formulation Sherry Guadarrama MD Work Phone: [facility] 07-04-2022 Covid Pfizer Bivalen t Booster Dr. Delvis Maldonado Work Phone: [facility] 01-31-2022 Covid (Moderna) Dr. Delvis sam Work Phone: [facility] 07-20-2021 Covid (Moderna) Dr. Delvis sam Work Phone: [facility] 05-14-2021 influenza, injectabl e, quadrivalent, preservative free Dr. Delvis Maldonado Work Phone: [facility] 10-18-2020 Covid (Moderna) Dr. Delvis sam Work Phone: [facility] 09-20-2020 Covid (Moderna) Dr. Delvis sam Work Phone: [facility] 08-17-2020 influenza, injectabl e, quadrivalent, preservative free Dr. Delvis Maldonado Work Phone: [facility] 06-24-2019 Influenza, injectabl e, [place] Canine Kidney, preservative free, quadrivalent Dr. Delvis Maldonado Work Phone: [facility] 05-18-2018 Seasonal trivalent influenza vaccine, adjuvanted, preservative free Dr. Delvis Maldonado Work Phone: [facility] 05-30-2017 Seasonal trivalent influenza vaccine, adjuvanted, preservative free Dr. Delvis Maldonado Work Phone: [facility] Payers Date Payer Category Payer Self-pay [id number] 2021 [employer] ( and others) [id number] [address] [facility] [id number] 2021-Present [phone] [address] [place] [address] [facility] [id number] 2011 Medicare [id number] 2011 Medicare MEDICARE MEDICAR E A AND B [id number] 2011-Present [phone] [address] [address] [place] [address] Medicare [id number] [employer] ( and others) [facility] [id number] Unknown [id number] Unknown [id number] Unknown [id number] Unknown [id number] Unknown [id number] Unknown [id number] Unknown [id number] Social History Date Type Detail Facility Start: 11-23-2021 End: 09-18-2023 Tobacco smoking status [facility] Unknown if ever smoked [facility] Start: 09-23-2020 Non-smoker [facility] Start: 1945 Sex Assigned At Male [facility] Start: 06-14-2022 End: 06-20-2022 Tobacco smoking status LAIS Ex-smoker [facility] End: 09-16-1981 History of tobacco use Current smoker [facility] End: 09-16-1981 History of tobacco use Cigarette Smoker [facility] Start: 06-14-2022 End: 06-20-2022 Tobacco use and exposure Smokeless tobacco non-user [facility] Start: 06-14-2022 End: 06-20-2022 Alcohol intake Current drinker of alcohol (finding) [facility] Start: 06-14-2022 History SDOH Alcohol Comment social [facility] Start: 1945 Sex Assigned At Not on file [facility] Start: 06-04-2022 End: 07-31-2022 Exposure to SARS-CoV-2 (event) Not sure [facility] Start: 06-20-2022 End: 2022 Cigarettes smoked current (pack per day) - Reported 0.5 [facility] Start: 06-20-2022 History SDOH Alcohol Comment 1 glass of wine weekly if that [facility] Start: 06-20-2022 End: 2022 Tobacco use panel [facility] National Score (1-10 0), lower number is lower risk 34 [facility] Medical Equipment Procedure Code Equipment Code Equipment Origin al Text Equipment Identifier Dates Lithotripsy, [id number] ([id number]) [id number] FDA Start: 06-14-2023 Cystoureteroscopy, with stent insertion STENT,URETERAL PIGTAIL [id number] FDA Start: 07-21-2023 Cystoureteroscopy, with stent insertion STENT,URETERAL PIGTAIL [id number] FDA Start: 07-21-2023 Cystoureteroscopy, with stent insertion STENT,URETERAL PIGTAIL [id number] FDA Start: 07-21-2023 Cystoureteroscopy, with stent insertion STENT,URETERAL PIGTAIL [id number] FDA Start: 07-21-2023 Cystoureteroscopy, with stent insertion STENT,URETERAL PIGTAIL [id number] FDA Start: 07-21-2023 Cystoureteroscopy, with stent insertion FDA Start: 07-21-2023 Cystoureteroscopy, with stent insertion STENT,URETERAL PIGTAIL [id number] FDA Start: 07-21-2023 Cystoureteroscopy, with stent insertion STENT,URETERAL PIGTAIL [id number] FDA Start: 07-21-2023 STENT,URETERAL 6 FR PIG 6X26 FDA Start: 12-26-2019 STENT,URETERAL 6 FR PIG 6X26 FDA Start: 12-30-2019 STENT,URETERAL 6 FR PIG 6X26 FDA Start: 12-26-2019 STENT,URETERAL 6 FR PIG 6X26 FDA Start: 12-30-2019 STENT,URETERAL 6 FR PIG 6X26 FDA Start: 12-26-2019 STENT,URETERAL 6 FR PIG 6X26 FDA Start: 12-30-2019 STENT,URETERAL 6 FR PIG 6X26 FDA Start: 12-26-2019 STENT,URETERAL 6 FR PIG 6X26 FDA Start: 12-30-2019 STENT,URETERAL 6 FR PIG 6X26 FDA Start: 12-26-2019 STENT,URETERAL 6 FR PIG 6X26 FDA Start: 12-30-2019 STENT,URETERAL 6 FR PIG 6X26 FDA Start: 12-26-2019 STENT,URETERAL 6 FR PIG 6X26 FDA Start: 12-30-2019 STENT,URETERAL 6 FR PIG 6X26 FDA Start: 12-26-2019 STENT,URETERAL 6 FR PIG 6X26 FDA Start: 12-30-2019 STENT,URETERAL 6 FR PIG 6X26 FDA Start: 12-26-2019 STENT,URETERAL 6 FR PIG 6X26 FDA Start: 12-30-2019 STENT,URETERAL 6 FR PIG 6X26 FDA Start: 12-26-2019 STENT,URETERAL 6 FR PIG 6X26 FDA Start: 12-30-2019 STENT,URETERAL 6 FR PIG 6X26 FDA Start: 12-26-2019 STENT,URETERAL 6 FR PIG 6X26 FDA Start: 12-30-2019 STENT,URETERAL 6 FR PIG 6X26 FDA Start: 12-26-2019 STENT,URETERAL 6 FR PIG 6X26 FDA Start: 12-30-2019 STENT,URETERAL 6 FR PIG 6X26 FDA Start: 12-26-2019 STENT,URETERAL 6 FR PIG 6X26 FDA Start: 12-30-2019 STENT,URETERAL 6 FR PIG 6X26 FDA Start: 12-26-2019 STENT,URETERAL 6 FR PIG 6X26 FDA Start: 12-30-2019 STENT,URETERAL 6 FR PIG 6X26 FDA Start: 12-26-2019 STENT,URETERAL 6 FR PIG 6X26 FDA Start: 12-30-2019 STENT,URETERAL 6 FR PIG 6X26 FDA Start: 12-26-2019 STENT,URETERAL 6 FR PIG 6X26 FDA Start: 12-30-2019 FDA Start: 12-26-2019 FDA Start: 12-30-2019 STENT,URETERAL 6 FR PIG 6X26 FDA Start: 12-26-2019 STENT,URETERAL 6 FR PIG 6X26 FDA Start: 12-30-2019 STENT,URETERAL 6 FR PIG 6X26 FDA Start: 12-26-2019 STENT,URETERAL 6 FR PIG 6X26 FDA Start: 12-30-2019 Goals Date Patient Goal Desired Activity /State Functional Status Date Assessment Result Facility 07-24-2023 Functional status Ambulates;Up ad amina [facility] Work Phone: 06-15-2023 Functional status Independent [facility] Work Phone: 06-14-2023 Functional status Ambulates;Up ad amina [facility] Work Phone: Mental Status Date Assessment Result Facility 07-24-2023 Cognitive function Voice/Name [facility] Work Phone: 06-15-2023 Cognitive function Voice/Name [facility] Work Phone: 06-07-2023 Cognitive function Awake;Alert;Appropriat e [facility] Work Phone: 05-25-2023 Cognitive function Voice/Name [facility] Work Phone: Clinical Notes 12-25-2015 to 11-19-2023 Gokul Kuo RT(R) - 11/19/2023 8:15 AM ESTTelephone Encounter - Gokul Kuo RT(R) - 10/29/2023 9:03 AM EST Note Date & Type Note Facility 11-19-2023 [...] PATIENT PRESENTS WITH AN IMPLANTABLE OR ATTACHED APARTMENT MANAGER: No ALLERGIES: Reviewed and unchanged CONTRAST ALLERGY: NO. EXAM: MRI - CONTRAST TYPE: GROUP II PERIPHERAL IV DATA: Ambulatory: A peripheral IV was started in the Right antecubital site with a Angio cath: 22 gauge. RADIOLOGY DEPARTMENT: MR; Exam(s) Completed: Cardiac: Cardiac SIGNATURE: RT Chet(R) PATIENT NAME: John Arriola DATE: November 19, 2023 TIME: 8:42 AM documented in this encounter [facility] 10-29-2023 Miscellaneous Notes Formattin g of this note might be different from the original. Chayo Rod protocol this Cardiac MRI scheduled in [place] on 11/19/2023. Gokul Chavez MRI documented in this encounter [facility] 09-11-2023 Discharge summary Note Date/Time September 11, 2023 9:44am [facility] [address] [place] [address] / REHABILITATION SERVICES DISCHARGE SUMMARY MR#: [id number] Acct: [id number] Name: JOHN ARRIOLA Rep #: [id number] : 1945 77 From: Erickson Bonilla PT, ATC Referring Dr.: Dr. Sun Lopez MD Status: REG RCR Insurance: MEDICARE PART A B [employer] Discharge Summary D/C summary: It has been my pleasure to treat JOHN ARRIOLA referred by Dr. Sun Lopez MD, with the diagnosis of Neck and L shoulder P! for a total of 4 visit(s). Discharge Date: 06/27/23 Please see the following information for a summary of their discharge status. Subjective Subjective: Pt. states his GFR is at 29 and he's concerned about his kidney function. Pt. states that his neck and shoulder is feeling well at this time. The only pain he is experiencing at this time is in his kidney area and stomach.His sleep has been disrupted d/t this. Pain Bilateral Shoulder: Pain Intensity (Out of 10): 0 Bilateral Neck: Pain Intensity (Out of 10): 0 Overall Improvement % Improvement: 100 Objective Objective/Function: Pts. pain has decreased to a 0/10 which has met his goal of lowering pain by 50%. (original pain was 5/10) Pt. ROM in L shoulder meet all contralateral side ROM planes. Pt. is I in his HEP. Pt. reported a RUSTAM Neck score of 2 on 12 OCT at time of d/c which is a 12 point change which met his goal of 7.5 points. (original score of 14) Goals Goal 1:: Pt. to decrease P! 50% from time of evaluation in order to return to regular level of function. Goal Progress: Goal Met Goal 2:: Pt. to increase ROM in L shoulder flexion and external rotation to meetcontralateral side in order to return to regular level of function. Goal Progress: Goal Met Goal 3:: Pt. to become I in HEP to continue exercises and improve health jail. Goal Progress: Goal Met Goal 4:: Pt. to increase their RUSTAM (neck) score by 7.5 points in order to maintain their ability to function in everyday life. Goal Progress: Goal Met Plan Plan: D/C patient to HEP. Pt. has HEP printed off and has received descriptive explanation of exs. Pt. has demonstrated proper technique in performing exs. D/C Information Discharge Comments: D/C to HEP d/c sentence: If there are questions or concerns regarding this patient's physical therapy, please feel free to call me at [phone]. Thank you for the referral of thispatient. Sincerely, Erickson Bonilla, PT, ATC Balance/Gait/Functional tests Balance/Special Test Scores Oswestry Neck Score: 2 Improvement % Improvement: 100 <Electronically signed by Erickson Bonilla PT, ATC> 09/11/23 0944 CC: Dr. Sun Lopez MD; Dr. Delvis Maldonado DO ~ [facility] Signed [facility] Work Phone: 1(574) 735-833311-08-2023 Discharge summary Author Joseph Mora [facility] July 24, 2023 7:47am Note Date/Time July 24, 2023 7 :47am [facility] Medical Records Department [address] [place] [id number] Discharge Summary 07/24/23 0745 MR#: [id number] Acct: [id number] Name: JOHN ARRIOLA Rep #:[id number] : 1945 77 From: Joseph Mora MD PCP: Dr. Delvis Maldonado DO Status:ADM IN Location: [facility] [id number] Providers Date of Admission: 07/21/23 Date of Discharge: 07/24/23 Primary Care Physician: Dr. Delvis Maldonado DO Consultations 07/23/23 07:30 Consult: Infectious Disease Routine Consulting Provider: Odilon Liu Reason for Consult: pseudomonas sepsis with stone EMERGENT Consult: No MD Notified: Yes Date Notified: 07/23/23 Time Notified: 08:05 Method of Notification: Text Reason For Visit: RIGHT URETERAL STONE Diagnosis Discharge Diagnosis (1) Bacteremia due to Gram-negative bacteria: Status: Acute Code(s): R78.81 - Bacteremia Medications at Discharge Home Medications hydroxychloroquine 200 mg tablet 200 mg PO QHS RHEUMATOID ARTHRITIS 05/26/21 cholecalciferol (vitamin D3) 50 mcg (2,000 unit) capsule 4,000 unit PO DAILY SUPPLEMENT 08/15/22 mecobalamin (vitamin B12) 1,000 mcg chewable tablet 1,000 mcg PO DAILY SUPPLEMENT 08/15/22 aspirin 81 mg tablet,delayed release (Adult Aspirin Regimen) 81 mg PO QHS [facility] 06/12/23 tamsulosin 0.4 mg capsule 0.4 mg PO DAILY@1730 #30 caps 06/15/23 metoprolol succinate 25 mg tablet,extended release 24 hr 25 mg PO DAILY BLOOD PRESSURE #90 tabs 06/24/23 ciprofloxacin HCl 500 mg tablet (Cipro) 500 mg PO BID #14 tabs 07/24/23 finasteride 5 mg tablet (Proscar) 5 mg PO DAILY #90 tabs 07/24/23 tamsulosin 0.4 mg capsule (Flomax) 0.4 mg PO QHS #90 caps 07/24/23 Hospital Course Summary of Care Provided Minutes Spent on Discharge: 35 Hospital Course: Patient was admitted for a distal right ureteral stone he underwent ureteroscopybasket extraction of stone and stent placement he also came in with infection cultures were done he had Pseudomonas pansensitive infection was started on broad-spectrum antibiotics was seen by infectious disease but fortunately it wassensitive Pseudomonas so we will send him home on Cipro for 7 days. Stent was removed while in the hospital. Still have frequency of urination so we will continue with Flomax and add Proscar and I will see him in the office in 2 weeksfor checkup. Physical Exam Const alert and oriented x3 General Appearance: cooperative HEENT normocephalic and head/scalp atraumatic Eyes PERRL and EOMs intact bilaterally Neck supple, no JVD and no carotid bruits Resp normal respiratory effort, normal air movement and clear to auscultation bilaterally Cardio regular rate and no murmurs GI normal to inspection, nondistended, normoactive bowel sounds and soft to palpation Extremity normal capillary refill General Extremity: no tenderness to palpation of joints or extremities; Negativefor edema Skin no rashes or lesions noted and no wounds General Skin Exam: no breakdown Neuro CN's II-XII intact bilaterally Psych affect normal Appearance: appropriate Medical Records Data Attestation: I reviewed the patient's medical records Weight / BMI Weight Weight: 78 kg Body Mass Index (BMI) 25.4 ABG / Lab / Microbiology Data 07/22/23 05:20 11 05:20 Laboratory: Laboratory Results - last 24 hr 07/21/23 10:21: Diff Path Review Reviewed Microbiology: Microbiology 07/21/23 10:17 Urine, Clean Catch Urine Culture - Final Pseudomonas aeruginosa 07/21/23 11:18 Blood Culture (Wb) - Venous Blood Culture - Preliminary GNR Poss Pseudomonas sp 07/21/23 11:20 Blood Culture (Wb) - Anticubital Right Blood Culture - Preliminary GNR Poss Pseudomonas sp D/C Instructions Discharge Diet: No restrictions Discharge Activity: Return to Normal Activity May resume sexual activity in: No Restrictions Call your doctor if you observe: Fever of 101 or Higher Please Follow Up With: Joseph Mora MD When: Call [phone] for an appointment Meaningful Use Info Meaningful Use Diagnoses (Choose all that apply): None applicable Discharge Plan Admission Admit Date/Time: 07/22/23 14:28 Primary Reason for Your Visit: Removal of right stone fragment and stent placement Attending Provider: Joseph Mora Primary Care Provider: Delvis Maldonado Consulting Providers: Odilon Liu Discharge Orders/Prescriptions Prescriptions: New ciprofloxacin HCl [Cipro] 500 mg tablet 500 mg PO BID Qty: 14 0RF finasteride [Proscar] 5 mg tablet 5 mg PO DAILY Qty: 90 3RF tamsulosin [Flomax] 0.4 mg capsule 0.4 mg PO QHS Qty: 90 3RF Continued hydroxychloroquine 200 mg tablet 200 mg PO QHS mecobalamin (vitamin B12) 1,000 mcg tablet,chewable 1,000 mcg PO DAILY cholecalciferol (vitamin D3) 50 mcg (2,000 unit) capsule 4,000 unit PO DAILY aspirin [Adult Aspirin Regimen] 81 mg tablet,delayed release (DR/EC) 81 mg PO QHS tamsulosin 0.4 mg Capsule 0.4 mg PO DAILY@1730 Qty: 30 0RF metoprolol succinate 25 mg tablet extended release 24 hr 25 mg PO DAILY Qty: 90 3RF Referrals / Follow Up: Joseph Mora MD [Med Staff - Active Staff] - Delvis Maldonado DO [Primary Care Provider] - Disposition Discharge Orders: Discharge Patient (Routine); Ordered 07/24/23 Ordered By: Dr. Joseph Mora 07/24/23 0747 <Electronically signed by Joseph Mora MD> Cosigner Signature (if applicable): CC: Dr. Joseph Mora MD; Dr. Delvis Maldonado DO~ Signed [facility] Work Phone: [phone]) [phone] Consult note Author Odilon Liu [facility] July 23, 2023 10:44am Note Date/Time July 23, 2023 1 0:44am [facility] Medical Records Department [address] [place] [address] Consultation - Infectious Dx 07/23/23 1038 MR#: [id number] Acct: [id number] Name: JOHN ARRIOLA Rep #:[id number] : 1945 77 From: Odilon alaniz MD PCP: Dr. Delvis Maldonado DO Status:ADM IN Location: [place] [address] Assessment & Plan Assessment/Plan (1) Bacteremia due to Gram-negative bacteria: PLAN: Pseudomonas bacteremia from urinary source s/p recent urologic procedure - taken to OR 07/21/[address] Mora for R stent placement. Ucx and Bcx with pseudomonas. Will change ceftriaxone to cipro for pseudomonal coverage. Plan on po cipro at discharge. Will follow, thank you, d/w nursing and keycase assembler HPI Consult Data Date of Consult: 07/23/23 HPI Narrative Reason for Consultation: bacteremia HPI Narrative: JOHN ARRIOLA, is a 77 M who presented with acute onset fever, chills, nausea, mild abd pain, not feeling well. Had R stent placement and ESWL on 06/[address] Huggins. Had another procedure for L stent placement 07/19, developed sx the nextday. Admitted on 06/20, started on ceftriaxone, taken to OR 07/21 for L stent removal, R stone extraction, R stent placement. Feeling a little better this AM. Some difficulty urinating. Full ROS performed and neg except as noted above. [facility] Medical History DEENA (acute kidney injury) Arthritis Atherosclerosis of [place] coronary artery of [place] heart without angina pectoris BPH (benign prostatic hyperplasia) Calculus of proximal right ureter Chronic kidney disease (CKD) Dilated aortic root Essential (primary) hypertension History of non-ST elevation myocardial infarction (NSTEMI) (12/2015) Hyperlipidemia Hypothyroidism Mass of anus Obstructive sleep apnea Plantar fasciitis Tubular adenoma of colon (09/26/20) Type 2 diabetes mellitus without complications Home Medications hydroxychloroquine 200 mg tablet 200 mg PO QHS RHEUMATOID ARTHRITIS 05/26/21 [History Last Taken 07/20/23 22:00 200 mg] cholecalciferol (vitamin D3) 50 mcg (2,000 unit) capsule 4,000 unit PO DAILY SUPPLEMENT 08/15/22 [History Last Taken 07/20/23 10:00 4,000 unit] mecobalamin (vitamin B12) 1,000 mcg chewable tablet 1,000 mcg PO DAILY SUPPLEMENT 08/15/22 [History Last Taken 07/20/23 10:00 1,000 mcg] aspirin 81 mg tablet,delayed release (Adult Aspirin Regimen) 81 mg PO QHS [facility] 06/12/23 [History Last Taken 07/20/23 22:00 81 mg] tamsulosin 0.4 mg capsule 0.4 mg PO DAILY@1730 #30 caps 06/15/23 [Rx Last Taken 07/20/23 17:30 0.4 mg] metoprolol succinate 25 mg tablet,extended release 24 hr 25 mg PO DAILY BLOOD PRESSURE #90 tabs 06/24/23 [Rx Last Taken 07/21/23 10:00 25 mg] Allergy/AdvReac Type Severity Reaction Status Date / Time rosuvastatin [From Crestor] AdvReac Severe Myalgias Verified 07/21/23 10:22 and joint pain Family History Mother CAD (coronary artery disease) Hx of CABG Father CAD (coronary artery disease) Hx of CABG Brother CAD (coronary artery disease) Hx of CABG Myocardial infarction Diabetes Surgical History History of colonoscopy (2007) History of colonoscopy (09/26/20) History of coronary artery stent placement (12/25/15) History of esophagogastroduodenoscopy (EGD) (2005) History of hemorrhoidectomy History of left heart catheterization (12/2015) History of nasal septoplasty History of ureter stent (12/2019) Social History Smoking Status: Former smoker alcohol intake: current alcohol intake frequency: a few times a week Alcohol type: beer substance use type: does not use caffeine: Yes Type: coffee what type of physical activity do you participate in: walking frequency: daily duration: 30-45 minutes/day seatbelt use: always do you feel safe at home: Yes Physical Exam Const alert, oriented x3 and no apparent distress General Appearance: cooperative HEENT normocephalic and head/scalp atraumatic Eyes PERRL and EOMs intact bilaterally Neck supple and No nodes Resp normal air movement and clear to auscultation bilaterally Cardio regular rate and regular rhythm GI soft to palpation, non-tender and non-distended GI Narrative: no flank pain Extremity General Extremity: Negative for edema Skin no rashes or lesions noted Neuro CN's II-XII intact bilaterally Lab / Micro Data Attestation: I reviewed the patient's lab results. 07/22/23 05:20 07/22/23 05:20 Labs: Laboratory Results - last 24 hr 07/21/23 10:21: Diff Path Review Reviewed Micro: Microbiology 07/21/23 10:17 Urine, Clean Catch Urine Culture - Final Pseudomonas aeruginosa 07/21/23 11:18 Blood Culture (Wb) - Venous Blood Culture - Preliminary GNR Poss Pseudomonas sp 07/21/23 11:20 Blood Culture (Wb) - Anticubital Right Blood Culture - Preliminary GNR Poss Pseudomonas sp 07/23/23 1044 <Electronically signed by Odilon Liu MD> Cosigner Signature (if applicable): CC: Dr. Delvis Maldonado DO; Dr. Odilon Liu MD~ Signed [facility] Work Phone: 1(206) 705-696011-07-2023 Progress note Author Joseph Mora [facility] July 23, 2023 7:30am Note Date/Time July 23, 2023 7 :26am [facility] Medical Records Department [address] [place] [address] Progress Note - Urology 07/23/2324 MR#: [id number] Acct: [id number] Name: JOHN ARRIOLA Rep #:[id number] : 1945 77 From: Joseph Mora MD PCP: Dr. Delvis Maldonado, DO Status:ADM IN Location: [id number] Subjective Subjective 77-year-old male status post removal of stone, on the right and today we will remove the right stent urine culture is coming back with Pseudomonas. Hopefullynot will be a very resistant strain, will await sensitivities and then will probably plan to discharge patient home with antibiotics per sensitivities so keep him on 1 more day in the hospital Hep-Lock fluids looks like his sepsis is resolved he is doing well his blood pressure stable heart rate stable. On a regular diet. Today Sukhjinder to remove his stent. Objective Data Objective Data Vital Signs: Vital Signs Temp Pulse Resp BP Pulse Ox O2 Del Method 98.4 F 94 18 124/71 H 98 Room Air 07/23/23 03:40 07/23/23 03:40 07/23/23 03:40 07/23/23 03:40 07/23/23 03:40 07/23/23 03:40 Oxygen Delivery Method Room Air Weight: 78 kg Body Mass Index (BMI) 25.4 Intake & Output: Intake and Output for Last 24 Hours 07/21/23 07/22/23 07/23/23 23:59 23:59 23:59 Intake Total 2901.25 / 2901.25 879.17 / 879.17 Output Total 600 / 600 600 / 600 Balance 2301.25 / 2301.25 279.17 / 279.17 Lab / Micro Data 07/22/23 05:20 07/22/23 05:20 Labs: Laboratory Results - last 24 hr 07/22/23 05:20: Sodium 137, Potassium 3.8, Chloride 108 H, Carbon Dioxide 23.0, Anion Gap 6, BUN 34 H, Creatinine 2.74 H, Estim Creat Clear Calc 22.19, Est GFR (MDRD) Af Amer 29 L, Est GFR (MDRD) Non-Af 24 L, BUN/Creatinine Ratio 12.4, Glucose 124 H, Calcium 7.3 L Micro: Microbiology 07/21/23 10:17 Urine, Clean Catch Urine Culture - Preliminary GNR Poss Pseudomonas sp 07/21/23 11:20 Blood Culture (Wb) - Anticubital Right Blood Culture - Preliminary 07/21/23 11:18 Blood Culture (Wb) - Venous Blood Culture - Preliminary Physical Exam Const alert and oriented x3 General Appearance: cooperative HEENT normocephalic, head/scalp atraumatic, EAC's normal and TM's normal bilaterally Eyes PERRL and EOMs intact bilaterally Pupil: sluggish Neck no lymphadenopathy, supple and no JVD General: trachea midline Lymph Lymphatic: no lymphadenopathy noted, lymphedema and lymphadenopathy Resp normal respiratory effort, normal air movement and clear to auscultation bilaterally Cardio regular rate, regular rhythm and peripheral pulses 2+ throughout GI soft to palpation, non-tender and non-distended Extremity normal capillary refill and no clubbing, cyanosis or edema General Extremity: no tenderness to palpation of joints or extremities Skin no rashes or lesions noted General Skin Exam: turgor normal Lesions: no lesions Rashes: no rashes Neuro CN's II-XII intact bilaterally Speech: speech normal Motor Exam: strength 5/5 throughout; Negative for general weakness Psych thought process normal, cooperative and affect normal Appearance: appropriate Assessment & Plan Assessment/Plan (1) Right ureteral calculus: 07/23/23725 <Electronically signed by Joseph Mora MD> Cosigner Signature (if applicable): CC: ~ Signed ADDENDUM by Dr. Joseph Mora MD on 07/23/23 at 0730 Addendum We will consult infectious disease anticipate the Pseudomonas is can be very resistant to most antibiotics since has been treated with multiple courses already so he may need to go home with a course of IV antibiotics so I will consult infectious disease to help plan for discharge with IV antibiotics to clear this infection today I did remove the stent so he has no more remaining hardware. 07/23/23729<Electronically signed by Joseph Mora MD> Cosigner Signature (if applicable): cc: ~* Signed [facility] Work Phone: 1(120) 988-799011-06-2023 Progress note Author Joseph Mora [facility] July 22, 2023 7:04am Note Date/Time July 22, 2023 7 :05am [facility] Medical Records Department [address] [place] [address] Progress Note - Urology 07/22/23 0702 MR#: [id number] Acct: [id number] Name: JOHN ARRIOLA Rep #:[id number] : 1945 77 From: Joseph Mora MD PCP: Dr. Delvis Maldonado, DO Status:ADM MARCELA Location: [place] [address]1 Subjective Subjective Status post cystoscopy and right ureteroscopy basket extraction of stone and right stent placement, patient have sepsis and bacteremia prior cultures grew out very small colonies of Pseudomonas and sensitivities were not done. We willcontinue with Rocephin await results of the blood and urine cultures explained to the patient because of change in status will have to be inpatient anticipate discharge may be Saturday up I plan to take out the stent tomorrow continue with gentle hydration IV antibiotics for sepsis and bacteremia the patient is clinically stable no signs of distress no not in pain he is alert he is talking he is interactive he is got breakfast does not look toxic. White count is down to 21,000 and BMP is pending Objective Data Objective Data Vital Signs: Vital Signs Temp Pulse Resp BP Pulse Ox O2 Del Method 98.4 F 110 H 16 104/71 97 Room Air 07/22/23 02:00 07/22/23 02:00 07/22/23 02:00 07/22/23 02:00 07/22/23 02:00 07/22/23 02:00 Oxygen Delivery Method Room Air Weight: 78 kg Body Mass Index (BMI) 25.4 Intake & Output: Intake and Output for Last 24 Hours 07/21/23 07/21/23 07/22/23 00:59 23:59 23:59 Intake Total 1178.75 / 1178.75 Balance 1178.75 / 1178.75 Lab / Micro Data 07/22/23 05:20 07/21/23 10:21 Labs: Laboratory Results - last 24 hr 07/21/23 10:17: Urine Color Yellow, Urine Clarity Cloudy, Urine pH 6.5, Ur Specific [place] 1.015, Urine Protein 100 H, Urine Glucose (UA) Normal, Urine Ketones 5 H, Urine Occult Blood 250 H, Urine Nitrite Positive H, Urine Bilirubin3 H, Urine Urobilinogen 8 H, Ur Leukocyte Esterase 500 H, Urine RBC > 100 SEEN, Urine WBC 50-100 SEEN, Ur Squamous Epith Cells 0 SEEN, Urine Bacteria 1+, Urine Mucus 0 SEEN 07/21/23 10:21: WBC 28.6 H, RBC 4.63, Hgb 13.4, Hct 42.3, MCV 91.4, MCH 28.9, MCHC 31.7 L, RDW Std Deviation 46.3 H, RDW Coeff of [place]ilson 14.0, Plt Count 210, MPV9.4, Neut % (Auto) Not Reportable, Absolute Neuts (auto) 26.6 H, Absolute Lymphs(auto) 1.14, Total Counted 100, Neutrophils % (Manual) 87 H, Band Neutrophils % 5, Lymphocytes % (Manual) 4 L, Monocytes % (Manual) 3, Metamyelocytes % 1, Differential Comment SCANNED, Diff Path Review January, Platelet Estimate ADEQUATE, RBC Morphology NORM C+C, Sodium 137, Potassium 3.7, Chloride 102, Carbon Dioxide 28.0, Anion Gap 7, BUN 28 H, Creatinine 2.63 H, Estim Creat ClearCalc 23.90, Est GFR (MDRD) Af Amer 31 L, Est GFR (MDRD) Non-Af 25 L, BUN/Creatinine Ratio 10.6, Glucose 157 H, Calcium 8.6 07/21/23 11:20: PT 15.3 H, INR 1.2, Lactic Acid 1.8 07/22/23 05:20: WBC 21.6 H, RBC 3.86 L, Hgb 11.4 L, Hct 35.6 L, MCV 92.2, MCH 29.5, MCHC 32.0, RDW Std Deviation 47.8 H, RDW Coeff of [place]il[place] 14.2, Plt Count 169,MPV 10.3 Micro: Microbiology 07/21/23 11:20 Blood Culture (Wb) - Anticubital Right Blood Culture - Preliminary Radiography Diagnostic Testing: Radiology Impression Abdomen/Pelvis CT 07/21/23 10:51 IMPRESSION: 1. Progression of the right ureteral stone without obstructive changes of the right renal collecting system. 2. Right nephrolithiasis. 3. Interval placement of a left double-J ureteral stent catheter. Electronically Signed: Davi Virk MD at 11:32 EST Reading Location ID and State: [facility] / [place] Tel , Service support , Physical Exam Const alert and oriented x3 General Appearance: cooperative HEENT normocephalic, head/scalp atraumatic, EAC's normal and TM's normal bilaterally Eyes PERRL and EOMs intact bilaterally Pupil: sluggish Neck no lymphadenopathy, supple and no JVD General: trachea midline Lymph Lymphatic: no lymphadenopathy noted, lymphedema and lymphadenopathy Resp normal respiratory effort, normal air movement and clear to auscultation bilaterally Cardio regular rate, regular rhythm and peripheral pulses 2+ throughout GI soft to palpation, non-tender and non-distended Extremity normal capillary refill and no clubbing, cyanosis or edema General Extremity: no tenderness to palpation of joints or extremities Skin no rashes or lesions noted General Skin Exam: turgor normal Lesions: no lesions Rashes: no rashes Neuro CN's II-XII intact bilaterally Speech: speech normal Motor Exam: strength 5/5 throughout; Negative for general weakness Psych thought process normal, cooperative and affect normal Appearance: appropriate Assessment & Plan Assessment/Plan (1) Right ureteral calculus: PLAN: Continue IV antibiotics await results of cultures, probably will be okay to remove his stent tomorrow anticipate discharge on Saturday, change status toinpatient 07/22/23 0704 <Electronically signed by Joseph Mora MD> Cosigner Signature (if applicable): CC: ~ Signed [facility] Work Phone: 1(762) 377-740211-05-2023 Discharge summary Author Joseph Mora [facility] July 21, 2023 2:47pm Note Date/Time July 21, 2023 2 :47pm [facility] Medical Records Department [address] [place] [address] Instructions for Home/Discharge Instructions 07/21/23 1447 MR#: [id number] Acct: [id number] Name: JOHN ARRIOLA Rep #:[id number] : 1945 77 From: Joseph Mora MD PCP: Dr. Delvis Maldonado, DO Status:ADM MARCELA Discharge Instructions Diet Discharge Diet: No restrictions Activity Discharge Activity: Return to Normal Activity Dressing / Incision Call your doctor if you observe: Fever of 101 or Higher Follow Up Care Please Follow Up With: Joseph Mora MD When: Call [phone] for an appointment Test Results: Test results from this visit will be discussed in further detail at your follow- up appointment, if applicable. Discharge Plan Admission Admit Date/Time: 07/21/23 13:54 Attending Provider: Joseph Mora Primary Care Provider: Delvis Maldonado Discharge Orders/Prescriptions Prescriptions: No Action hydroxychloroquine 200 mg tablet 200 mg PO QHS mecobalamin (vitamin B12) 1,000 mcg tablet,chewable 1,000 mcg PO DAILY cholecalciferol (vitamin D3) 50 mcg (2,000 unit) capsule 4,000 unit PO DAILY hydrocodone-acetaminophen 5-325 mg tablet 1 tab PO Q6H PRN (Reason: Pain) aspirin [Adult Aspirin Regimen] 81 mg tablet,delayed release (DR/EC) 81 mg PO QHS oxycodone-acetaminophen 5-325 mg tablet 1 tab PO Q6H PRN (Reason: PAIN ) tamsulosin 0.4 mg Capsule 0.4 mg PO DAILY@1730 Qty: 30 0RF metoprolol succinate 25 mg tablet extended release 24 hr 25 mg PO DAILY Qty: 90 3RF Referrals / Follow Up: Delvis Maldonado DO [Primary Care Provider] - 07/21/23 1447<Electronically signed by Joseph Mora MD>Joseph Mora MD CC: Dr. Delvis Maldonado DO ~ Signed [facility] Work Phone: 1(684) 973-819211-05-2023 History and physical note Author Joseph Mora [facility] July 21, 2023 1:53pm Note Date/Time July 21, 2023 1 :53pm [facility] Medical Records Department [address] [place] [address] History & Physical Exam 07/21/23 1350 MR#: [id number] Acct: [id number] Name: JOHN ARRIOLA Rep #:[id number] : 1945 77 From: Joseph Mora MD PCP: Dr. Delvis Maldonado DO Status:[facility] Location: [place] [address] HPI - General General Date of Service: 07/21/23 Chief Complaint: Obstructing right ureteral calculi stent in the left HPI Narrative JOHN ARRIOLA, is a 77 M who presents to the emergency room with a UTI white blood count of 20,000 he had a ureteroscopy and laser procedure on the left sideand stent placement in the left on CAT scan he has a stone on the distal right ureter today we plan to remove the stent from the left side if possible will laser the stone in the distal right ureter and place a right stent [facility] Medical History DEENA (acute kidney injury) Arthritis Atherosclerosis of [place] coronary artery of [place] heart without angina pectoris BPH (benign prostatic hyperplasia) Calculus of proximal right ureter Chronic kidney disease (CKD) Dilated aortic root Essential (primary) hypertension History of non-ST elevation myocardial infarction (NSTEMI) (12/2015) Hyperlipidemia Hypothyroidism Mass of anus Obstructive sleep apnea Plantar fasciitis Tubular adenoma of colon (09/26/20) Type 2 diabetes mellitus without complications Home Medications hydroxychloroquine 200 mg tablet 200 mg PO QHS RHEUMATOID ARTHRITIS 05/26/21 [History Last Taken 06/11/23] cholecalciferol (vitamin D3) 50 mcg (2,000 unit) capsule 4,000 unit PO DAILY SUPPLEMENT 08/15/22 [History Last Taken 06/11/23] mecobalamin (vitamin B12) 1,000 mcg chewable tablet 1,000 mcg PO DAILY SUPPLEMENT 08/15/22 [History Last Taken 06/11/23] aspirin 81 mg tablet,delayed release (Adult Aspirin Regimen) 81 mg PO QHS [facility] 06/12/23 [History Last Taken 06/11/23] hydrocodone-acetaminophen 5-325mg 5mg-325mg 1 tab PO Q6H PRN Pain 06/12/23 [History Last Taken Unknown] oxycodone-acetaminophen 5 mg-325 mg tablet 1 tab PO Q6H PRN PAIN 06/12/23 [History Last Taken 06/11/23] tamsulosin 0.4 mg capsule 0.4 mg PO DAILY@1730 #30 caps 06/15/23 [Rx Last Taken Unknown] metoprolol succinate 25 mg tablet,extended release 24 hr 25 mg PO DAILY BLOOD PRESSURE #90 tabs 06/24/23 [Rx Last Taken Unknown] Allergy/AdvReac Type Severity Reaction Status Date / Time rosuvastatin [From Crestor] AdvReac Severe Myalgias Verified 07/21/23 10:22 and joint pain Family History Mother CAD (coronary artery disease) Hx of CABG Father CAD (coronary artery disease) Hx of CABG Brother CAD (coronary artery disease) Hx of CABG Myocardial infarction Diabetes Surgical History History of colonoscopy (2007) History of colonoscopy (09/26/20) History of coronary artery stent placement (12/25/15) History of esophagogastroduodenoscopy (EGD) (2005) History of hemorrhoidectomy History of left heart catheterization (12/2015) History of nasal septoplasty History of ureter stent (12/2019) Social History Smoking Status: Former smoker alcohol intake: current alcohol intake frequency: a few times a week Alcohol type: beer substance use type: does not use caffeine: Yes Type: coffee what type of physical activity do you participate in: walking frequency: daily duration: 30-45 minutes/day seatbelt use: always do you feel safe at home: Yes ROS Constitutional Constitutional: Denies chills, fever(s) or malaise Eyes Eyes: Denies blurry vision or change in vision ENT HEENT: Reports none Cardiovascular Cardiovascular: Denies chest pain or palpitations Respiratory/Chest Respiratory/Chest: Denies cough or shortness of breath with exertion Gastrointestinal Gastrointestinal: Denies abdominal pain, constipation or diarrhea Musculoskeletal Musculoskeletal: Denies back pain, joint stiffness or joint swelling Integumentary Integumentary: Denies dry skin, jaundice, lesions or rash Neurologic Neurologic: Denies confusion, syncope or weakness Psychiatric Psychiatric: Reports none; Denies anxiety or depression Endocrine Endocrinology: Denies excessive sweating, fatigue or flushing Hematologic/Lymphatic Hematologic/Lymphatic: Denies anemia, easy bleeding or easy bruising Vital Signs Vital Signs Vital Signs: 07/21/23 10:03 07/21/23 10:27 07/21/23 11:25 Temperature 98 F 98.2 F Temperature Source Temporal Oral Pulse Rate 128 H 119 H 116 H Respiratory Rate 18 18 20 H Blood Pressure 120/77 111/64 109/61 Blood Pressure Mean 91 79 77 Blood Pressure Source Blood Pressure Position Blood Pressure Location Pulse Ox 99 96 96 Oxygen Delivery Method Room Air Room Air Room Air 07/21/23 12:26 07/21/23 12:47 Temperature 98.6 F Temperature Source Oral Pulse Rate 119 H 116 H Respiratory Rate 35 H 27 H Blood Pressure 106/65 105/61 Blood Pressure Mean 78 75 Blood Pressure Source Monitor Blood Pressure Position Semi-Fowlers Blood Pressure Location Right Arm Pulse Ox 95 95 Oxygen Delivery Method Room Air Room Air Weight Weight: 77.519 kg Body Mass Index (BMI) 25.2 Physical Exam Const alert and oriented x3 General Appearance: cooperative HEENT normocephalic and head/scalp atraumatic Eyes PERRL and EOMs intact bilaterally Neck supple, no JVD and no carotid bruits Resp normal respiratory effort, normal air movement and clear to auscultation bilaterally Cardio regular rate and no murmurs GI normal to inspection, nondistended, normoactive bowel sounds and soft to palpation Extremity normal capillary refill General Extremity: no tenderness to palpation of joints or extremities; Negativefor edema Skin no rashes or lesions noted and no wounds General Skin Exam: no breakdown Neuro CN's II-XII intact bilaterally Psych affect normal Appearance: appropriate Results Medical Records Data Attestation: I reviewed the patient's medical records Lab / Micro Data 07/21/23 10:21 07/21/23 10:21 Labs: Laboratory Results - last 24 hr 07/21/23 10:17: Urine Color Yellow, Urine Clarity Cloudy, Urine pH 6.5, Ur Specific [place] 1.015, Urine Protein 100 H, Urine Glucose (UA) Normal, Urine Ketones 5 H, Urine Occult Blood 250 H, Urine Nitrite Positive H, Urine Bilirubin3 H, Urine Urobilinogen 8 H, Ur Leukocyte Esterase 500 H, Urine RBC > 100 SEEN, Urine WBC 50-100 SEEN, Ur Squamous Epith Cells 0 SEEN, Urine Bacteria 1+, Urine Mucus 0 SEEN 07/21/23 10:21: WBC 28.6 H, RBC 4.63, Hgb 13.4, Hct 42.3, MCV 91.4, MCH 28.9, MCHC 31.7 L, RDW Std Deviation 46.3 H, RDW Coeff of Denilson 14.0, Plt Count 210, MPV9.4, Neut % (Auto) Not Reportable, Absolute Neuts (auto) 26.6 H, Absolute Lymphs(auto) 1.14, Total Counted 100, Neutrophils % (Manual) 87 H, Band Neutrophils % 5, Lymphocytes % (Manual) 4 L, Monocytes % (Manual) 3, Metamyelocytes % 1, Differential Comment SCANNED, Diff Path Review May foll, Platelet Estimate ADEQUATE, RBC Morphology NORM C+C, Sodium 137, Potassium 3.7, Chloride 102, Carbon Dioxide 28.0, Anion Gap 7, BUN 28 H, Creatinine 2.63 H, Estim Creat ClearCalc 23.90, Est GFR (MDRD) Af Amer 31 L, Est GFR (MDRD) Non-Af 25 L, BUN/Creatinine Ratio 10.6, Glucose 157 H, Calcium 8.6 07/21/23 11:20: PT 15.3 H, INR 1.2, Lactic Acid 1.8 Radiology Impression Abdomen/Pelvis CT 07/21/23 10:51 IMPRESSION: 1. Progression of the right ureteral stone without obstructive changes of the right renal collecting system. 2. Right nephrolithiasis. 3. Interval placement of a left double-J ureteral stent catheter. Electronically Signed: Davi Virk MD at 11:32 EST , Assessment & Plan Assessment/Plan (1) Right ureteral calculus: PLAN: Plan to proceed with right ureteroscopy laser lithotripsy of stone and stent placement this is a new stone from the right side (2) Left renal stone: PLAN: Plan to proceed with cystoscopy and removal of left stent he had prior stones treated on the left side and looks like there is no more remaining stoneson the left side so we will remove the stent. PLAN: Plan Also appears to have a urinary tract infection we will put him on Rocephin and admit the patient for UTI sepsis 07/21/23 1353 <Electronically signed by Joseph Mora MD> Cosigner Signature (if applicable): CC: Dr. Joseph Mora MD; Dr. Delvis Maldonado, DO~ Signed [facility] Work Phone: [phone]) 248-434911-05-2023 Discharge summary Author Josemanuel Roa [facility] July 21, 2023 12:51pm Note Date/Time July 21, 2023 1 1:21am [facility] Medical Records Department [address] [place] [address] Emergency Department Summary 07/21/23 MR#: [id number] Acct: [id number] Name: JOHN ARRIOLA Rep #:[id number] : 1945 77 From: Josemanuel Roa DO PCP: Dr. Delvis Maldonado DO Status:REG ER Location: ED HPI History of Present Illness Chief Complaint: Male Pain/Injury Narrative Narrative: 77-year-old male with history of kidney stones, UTI following with Dr. Mora who reportedly placed a renal stent in the right ureter on Saturday. This was dueto right-sided kidney stones. Patient states he started to feel like his urethra was burning this morning. He is able to void. He complains of left lower quadrant abdominal pain when he voids. He has not had a fever but subjectively feels like he is chilled. He feels generally unwell. He is not vomiting but has mild nausea. Patient states that he is on antibiotics and takes it 3 times a day but cannot recall what this medication is. [facility] Medical History DEENA (acute kidney injury) Arthritis Atherosclerosis of [place] coronary artery of [place] heart without angina pectoris BPH (benign prostatic hyperplasia) Calculus of proximal right ureter Chronic kidney disease (CKD) Dilated aortic root Essential (primary) hypertension History of non-ST elevation myocardial infarction (NSTEMI) (12/2015) Hyperlipidemia Hypothyroidism Mass of anus Obstructive sleep apnea Plantar fasciitis Tubular adenoma of colon (09/26/20) Type 2 diabetes mellitus without complications Home Medications hydroxychloroquine 200 mg tablet 200 mg PO QHS RHEUMATOID ARTHRITIS 05/26/21 [History Last Taken 06/11/23] cholecalciferol (vitamin D3) 50 mcg (2,000 unit) capsule 4,000 unit PO DAILY SUPPLEMENT 08/15/22 [History Last Taken 06/11/23] mecobalamin (vitamin B12) 1,000 mcg chewable tablet 1,000 mcg PO DAILY SUPPLEMENT 08/15/22 [History Last Taken 06/11/23] aspirin 81 mg tablet,delayed release (Adult Aspirin Regimen) 81 mg PO QHS HEART HEALTH 06/12/23 [History Last Taken 06/11/23] hydrocodone-acetaminophen 5-325mg 5mg-325mg 1 tab PO Q6H PRN Pain 06/12/23 [History Last Taken Unknown] oxycodone-acetaminophen 5 mg-325 mg tablet 1 tab PO Q6H PRN PAIN 06/12/23 [History Last Taken 06/11/23] tamsulosin 0.4 mg capsule 0.4 mg PO DAILY@1730 #30 caps 06/15/23 [Rx Last Taken Unknown] metoprolol succinate 25 mg tablet,extended release 24 hr 25 mg PO DAILY BLOOD PRESSURE #90 tabs 06/24/23 [Rx Last Taken Unknown] Allergy/AdvReac Type Severity Reaction Status Date / Time rosuvastatin [From Crestor] AdvReac Severe Myalgias Verified 07/21/23 10:22 and joint pain Family History Mother CAD (coronary artery disease) Hx of CABG Father CAD (coronary artery disease) Hx of CABG Brother CAD (coronary artery disease) Hx of CABG Myocardial infarction Diabetes Surgical History History of colonoscopy (2007) History of colonoscopy (09/26/20) History of coronary artery stent placement (12/25/15) History of esophagogastroduodenoscopy (EGD) (2005) History of hemorrhoidectomy History of left heart catheterization (12/2015) History of nasal septoplasty History of ureter stent (12/2019) Social History Smoking Status: Former smoker alcohol intake: current alcohol intake frequency: a few times a week Alcohol type: beer substance use type: does not use caffeine: Yes Type: coffee what type of physical activity do you participate in: walking frequency: daily duration: 30-45 minutes/day seatbelt use: always do you feel safe at home: Yes ROS ROS ED Constitutional Constitutional ED: Reports chills and subjective Eyes Eyes: Denies blurry vision or change in vision ENT ENT ED: Denies rhinorrhea or sore throat Cardiovascular Cardiovascular: Denies chest pain or palpitations Respiratory/Chest Respiratory/Chest: Denies cough or dyspnea Gastrointestinal Gastrointestinal: Reports abdominal pain, constipation and nausea; Denies diarrhea Genitourinary Genitourinary ED: Reports dysuria and hematuria Musculoskeletal Musculoskeletal: Reports myalgias; Denies arthralgias or back pain Integumentary Denies abscess Neurologic Neurologic: Reports headache(s); Denies paresthesias or weakness Psychiatric Psychiatric: Denies anxiety or depression EXAM Physical Exam Const Vital Signs: 07/21/23 10:03 07/21/23 10:27 07/21/23 11:25 Temperature 98 F 98.2 F Temperature Source Temporal Oral Pulse Rate 128 H 119 H 116 H Respiratory Rate 18 18 20 H Blood Pressure 120/77 111/64 109/61 Blood Pressure Mean 91 79 77 Pulse Ox 99 96 96 Oxygen Delivery Method Room Air Room Air Room Air 07/21/23 12:26 Temperature Temperature Source Pulse Rate 119 H Respiratory Rate 35 H Blood Pressure 106/65 Blood Pressure Mean 78 Pulse Ox 95 Oxygen Delivery Method Room Air Positive well nourished General Appearance ED: Negative for pallor HEENT Reports moist mucous membranes normocephalic Eyes PERRL Neck no lymphadenopathy Resp normal respiratory effort and clear to auscultation bilaterally Cardio regular rate and regular rhythm GI non-distended and no masses Palpation: tender LLQ Back/Spine no CVA tenderness Neuro oriented x3, CN's II-XII intact bilaterally, moves all extremities and no focal motor deficits Sensorium / Orientation: alert Motor Exam: strength 5/5 throughout Psych mental status grossly normal Skin General Skin Exam: Negative for jaundice or pallor MDM MDM MDM Narrative Medical decision making narrative: -year-old male presenting with left lower quadrant pain, dysuria. Differential includes UTI, septic kidney stone, diverticulitis colitis, dehydration, electrolyte maladies, pyelonephritis. CBC and BMP were obtained initially to assess white blood cell count, hemoglobin, platelets, renal function electrolytes. Urinalysis was obtained to assess for UTI. Patient medicated with 1L of normal saline, fentanyl and Zofran for pain and nausea. Patient initially noted to be tachycardic otherwise normotensive without fever. White blood cell count came back at 28.6. Hemoglobin stable 13.4. Platelets are normal at 9.4. Creatinine is elevated at 2.60 with a baseline of 2.38. Urinalysis consistent with infection. Patient is given a gram of Rocephin. Urine culture was obtained. Blood cultures were obtained. Lactic acid and coagulation studies were added. Patient given 30 cc/kg of IV fluids. Reviewed previous echocardiogram showed an EF of 55%. CT of the abdomen pelvis without contrast was obtained and shows a retained kidney stone in the distal ureter which was previously in the proximal ureter on the right. The stent appears to be in the left ureter. Given my concern for septic stone given the patient's work-up Dr. Mora was paged at 10:55 AM. A second notification was sent at 1126 that he has not answered his phone. Findings were discussed with the patient. Still awaiting phone call back from urology 12:26 PM. I was told that the escrow secretary did get a hold of Dr. Mora's family member after calling his house and she stated that she would let him know that we were reaching out to him. Discussed case with patient at about 12:[address] Mora who states that he will comein and take the patient to the OR. Patient is aware of this. Lactic acid returned within normal limits at 1.8. Coagulation studies are normal. Impression: 1. Right distal ureteral calculi 2. Septic stone she 3. Leukocytosis Lab Data Attestation: I reviewed the patient's lab results. Labs: Laboratory Results - last 24 hr 07/21/23 07/21/23 07/21/23 10:17 10:21 11:20 WBC 28.6 H RBC 4.63 Hgb 13.4 Hct 42.3 MCV 91.4 MCH 28.9 MCHC 31.7 L RDW Std Deviation 46.3 H RDW Coeff of Denilson 14.0 Plt Count 210 MPV 9.4 Neut % (Auto) Not Reportable Absolute Neuts (auto) 26.6 H Absolute Lymphs (auto) 1.14 Total Counted 100 Neutrophils % (Manual) 87 H Band Neutrophils % 5 Lymphocytes % (Manual) 4 L Monocytes % (Manual) 3 Metamyelocytes % 1 Differential Comment SCANNED Diff Path Review May foll Platelet Estimate ADEQUATE RBC Morphology NORM C+C PT 15.3 H INR 1.2 Sodium 137 Potassium 3.7 Chloride 102 Carbon Dioxide 28.0 Anion Gap 7 BUN 28 H Creatinine 2.63 H Estim Creat Clear Calc 23.90 Est GFR (MDRD) Af Amer 31 L Est GFR (MDRD) Non-Af 25 L BUN/Creatinine Ratio 10.6 Glucose 157 H Lactic Acid 1.8 Calcium 8.6 Urine Color Yellow Urine Clarity Cloudy Urine pH 6.5 Ur Specific [place] 1.015 Urine Protein 100 H Urine Glucose (UA) Normal Urine Ketones 5 H Urine Occult Blood 250 H Urine Nitrite Positive H Urine Bilirubin 3 H Urine Urobilinogen 8 H Ur Leukocyte Esterase 500 H Urine RBC > 100 SEEN Urine WBC 50-100 SEEN Ur Squamous Epith Cells 0 SEEN Urine Bacteria 1+ Urine Mucus 0 SEEN Radiography Diagnostic Testing: Clinical Impression(s) from Imaging Studies Abdomen/Pelvis CT 07/21/23 10:51 IMPRESSION: 1. Progression of the right ureteral stone without obstructive changes of the right renal collecting system. 2. Right nephrolithiasis. 3. Interval placement of a left double-J ureteral stent catheter. Electronically Signed: Davi Virk MD at 11:32 EST Reading Location ID and State: [facility] / [place] Tel , Service support , Discharge Plan Triage Chief Complaint: Male Pain/Injury ED Provider: Josemanuel Roa Dx/Rx/DC Orders Prescriptions: No Action hydroxychloroquine 200 mg tablet 200 mg PO QHS mecobalamin (vitamin B12) 1,000 mcg tablet,chewable 1,000 mcg PO DAILY cholecalciferol (vitamin D3) 50 mcg (2,000 unit) capsule 4,000 unit PO DAILY hydrocodone-acetaminophen 5-325 mg tablet 1 tab PO Q6H PRN (Reason: Pain) aspirin [Adult Aspirin Regimen] 81 mg tablet,delayed release (DR/EC) 81 mg PO QHS oxycodone-acetaminophen 5-325 mg tablet 1 tab PO Q6H PRN (Reason: PAIN ) tamsulosin 0.4 mg Capsule 0.4 mg PO DAILY@1730 Qty: 30 0RF metoprolol succinate 25 mg tablet extended release 24 hr 25 mg PO DAILY Qty: 90 3RF Primary Care Provider: Delvis Maldonado Referrals: Delvis Maldonado, DO [Primary Care Provider] - What to do if you have Problems For any increased pain, shortness of breath, bleeding, nausea or vomiting, chestpain, or any unexpected problems, contact your Primary Care Provider. Call [facility] ([phone]) or report to the closest Emergency Room. Call 911 if necessary. 07/21/23 1251 <Electronically signed by Josemanuel Roa DO> Cosigner Signature (if applicable): CC: Dr. Delvis Maldonado DO ~ Signed [facility] Work Phone: 1(957) 748-204911-05-2023 Procedure [facility] 07-21-2023 Discharge summary Author Josemanuel Roa [facility] July 21, 2023 12:51pm Note Date/Time July 21, 2023 1 1:21am [facility] Medical Records Department [address] [place] [address] Emergency Department Summary 07/21/23 MR#: [id number] Acct: [id number] Name: JOHN ARRIOLA Rep #:[id number] : 1945 77 From: Josemanuel Roa DO PCP: Dr. Delvis Maldonado DO Status:REG ER Location: ED HPI History of Present Illness Chief Complaint: Male Pain/Injury Narrative Narrative: 77-year-old male with history of kidney stones, UTI following with Dr. Mora who reportedly placed a renal stent in the right ureter on Saturday. This was dueto right-sided kidney stones. Patient states he started to feel like his urethra was burning this morning. He is able to void. He complains of left lower quadrant abdominal pain when he voids. He has not had a fever but subjectively feels like he is chilled. He feels generally unwell. He is not vomiting but has mild nausea. Patient states that he is on antibiotics and takes it 3 times a day but cannot recall what this medication is. [facility] Medical History DEENA (acute kidney injury) Arthritis Atherosclerosis of [place] coronary artery of [place] heart without angina pectoris BPH (benign prostatic hyperplasia) Calculus of proximal right ureter Chronic kidney disease (CKD) Dilated aortic root Essential (primary) hypertension History of non-ST elevation myocardial infarction (NSTEMI) (12/2015) Hyperlipidemia Hypothyroidism Mass of anus Obstructive sleep apnea Plantar fasciitis Tubular adenoma of colon (09/26/20) Type 2 diabetes mellitus without complications Home Medications hydroxychloroquine 200 mg tablet 200 mg PO QHS RHEUMATOID ARTHRITIS 05/26/21 [History Last Taken 06/11/23] cholecalciferol (vitamin D3) 50 mcg (2,000 unit) capsule 4,000 unit PO DAILY SUPPLEMENT 08/15/22 [History Last Taken 06/11/23] mecobalamin (vitamin B12) 1,000 mcg chewable tablet 1,000 mcg PO DAILY SUPPLEMENT 08/15/22 [History Last Taken 06/11/23] aspirin 81 mg tablet,delayed release (Adult Aspirin Regimen) 81 mg PO QHS HEART HEALTH 06/12/23 [History Last Taken 06/11/23] hydrocodone-acetaminophen 5-325mg 5mg-325mg 1 tab PO Q6H PRN Pain 06/12/23 [History Last Taken Unknown] oxycodone-acetaminophen 5 mg-325 mg tablet 1 tab PO Q6H PRN PAIN 06/12/23 [History Last Taken 06/11/23] tamsulosin 0.4 mg capsule 0.4 mg PO DAILY@1730 #30 caps 06/15/23 [Rx Last Taken Unknown] metoprolol succinate 25 mg tablet,extended release 24 hr 25 mg PO DAILY BLOOD PRESSURE #90 tabs 06/24/23 [Rx Last Taken Unknown] Allergy/AdvReac Type Severity Reaction Status Date / Time rosuvastatin [From Crestor] AdvReac Severe Myalgias Verified 07/21/23 10:22 and joint pain Family History Mother CAD (coronary artery disease) Hx of CABG Father CAD (coronary artery disease) Hx of CABG Brother CAD (coronary artery disease) Hx of CABG Myocardial infarction Diabetes Surgical History History of colonoscopy (2007) History of colonoscopy (09/26/20) History of coronary artery stent placement (12/25/15) History of esophagogastroduodenoscopy (EGD) (2005) History of hemorrhoidectomy History of left heart catheterization (12/2015) History of nasal septoplasty History of ureter stent (12/2019) Social History Smoking Status: Former smoker alcohol intake: current alcohol intake frequency: a few times a week Alcohol type: beer substance use type: does not use caffeine: Yes Type: coffee what type of physical activity do you participate in: walking frequency: daily duration: 30-45 minutes/day seatbelt use: always do you feel safe at home: Yes ROS ROS ED Constitutional Constitutional ED: Reports chills and subjective Eyes Eyes: Denies blurry vision or change in vision ENT ENT ED: Denies rhinorrhea or sore throat Cardiovascular Cardiovascular: Denies chest pain or palpitations Respiratory/Chest Respiratory/Chest: Denies cough or dyspnea Gastrointestinal Gastrointestinal: Reports abdominal pain, constipation and nausea; Denies diarrhea Genitourinary Genitourinary ED: Reports dysuria and hematuria Musculoskeletal Musculoskeletal: Reports myalgias; Denies arthralgias or back pain Integumentary Denies abscess Neurologic Neurologic: Reports headache(s); Denies paresthesias or weakness Psychiatric Psychiatric: Denies anxiety or depression EXAM Physical Exam Const Vital Signs: 07/21/23 10:03 07/21/23 10:27 07/21/23 11:25 Temperature 98 F 98.2 F Temperature Source Temporal Oral Pulse Rate 128 H 119 H 116 H Respiratory Rate 18 18 20 H Blood Pressure 120/77 111/64 109/61 Blood Pressure Mean 91 79 77 Pulse Ox 99 96 96 Oxygen Delivery Method Room Air Room Air Room Air 07/21/23 12:26 Temperature Temperature Source Pulse Rate 119 H Respiratory Rate 35 H Blood Pressure 106/65 Blood Pressure Mean 78 Pulse Ox 95 Oxygen Delivery Method Room Air Positive well nourished General Appearance ED: Negative for pallor HEENT Reports moist mucous membranes normocephalic Eyes PERRL Neck no lymphadenopathy Resp normal respiratory effort and clear to auscultation bilaterally Cardio regular rate and regular rhythm GI non-distended and no masses Palpation: tender LLQ Back/Spine no CVA tenderness Neuro oriented x3, CN's II-XII intact bilaterally, moves all extremities and no focal motor deficits Sensorium / Orientation: alert Motor Exam: strength 5/5 throughout Psych mental status grossly normal Skin General Skin Exam: Negative for jaundice or pallor MDM MDM MDM Narrative Medical decision making narrative: -year-old male presenting with left lower quadrant pain, dysuria. Differential includes UTI, septic kidney stone, diverticulitis colitis, dehydration, electrolyte maladies, pyelonephritis. CBC and BMP were obtained initially to assess white blood cell count, hemoglobin, platelets, renal function electrolytes. Urinalysis was obtained to assess for UTI. Patient medicated with 1L of normal saline, fentanyl and Zofran for pain and nausea. Patient initially noted to be tachycardic otherwise normotensive without fever. White blood cell count came back at 28.6. Hemoglobin stable 13.4. Platelets are normal at 9.4. Creatinine is elevated at 2.60 with a baseline of 2.38. Urinalysis consistent with infection. Patient is given a gram of Rocephin. Urine culture was obtained. Blood cultures were obtained. Lactic acid and coagulation studies were added. Patient given 30 cc/kg of IV fluids. Reviewed previous echocardiogram showed an EF of 55%. CT of the abdomen pelvis without contrast was obtained and shows a retained kidney stone in the distal ureter which was previously in the proximal ureter on the right. The stent appears to be in the left ureter. Given my concern for septic stone given the patient's work-up Dr. Mora was paged at 10:55 AM. A second notification was sent at 1126 that he has not answered his phone. Findings were discussed with the patient. Still awaiting phone call back from urology 12:26 PM. I was told that the escrow secretary did get a hold of Dr. Mora's family member after calling his house and she stated that she would let him know that we were reaching out to him. Discussed case with patient at about 12:[address] Mora who states that he will comein and take the patient to the OR. Patient is aware of this. Lactic acid returned within normal limits at 1.8. Coagulation studies are normal. Impression: 1. Right distal ureteral calculi 2. Septic stone she 3. Leukocytosis Lab Data Attestation: I reviewed the patient's lab results. Labs: Laboratory Results - last 24 hr 07/21/23 07/21/23 07/21/23 10:17 10:21 11:20 WBC 28.6 H RBC 4.63 Hgb 13.4 Hct 42.3 MCV 91.4 MCH 28.9 MCHC 31.7 L RDW Std Deviation 46.3 H RDW Coeff of Denilson 14.0 Plt Count 210 MPV 9.4 Neut % (Auto) Not Reportable Absolute Neuts (auto) 26.6 H Absolute Lymphs (auto) 1.14 Total Counted 100 Neutrophils % (Manual) 87 H Band Neutrophils % 5 Lymphocytes % (Manual) 4 L Monocytes % (Manual) 3 Metamyelocytes % 1 Differential Comment SCANNED Diff Path Review May foll Platelet Estimate ADEQUATE RBC Morphology NORM C+C PT 15.3 H INR 1.2 Sodium 137 Potassium 3.7 Chloride 102 Carbon Dioxide 28.0 Anion Gap 7 BUN 28 H Creatinine 2.63 H Estim Creat Clear Calc 23.90 Est GFR (MDRD) Af Amer 31 L Est GFR (MDRD) Non-Af 25 L BUN/Creatinine Ratio 10.6 Glucose 157 H Lactic Acid 1.8 Calcium 8.6 Urine Color Yellow Urine Clarity Cloudy Urine pH 6.5 Ur Specific [place] 1.015 Urine Protein 100 H Urine Glucose (UA) Normal Urine Ketones 5 H Urine Occult Blood 250 H Urine Nitrite Positive H Urine Bilirubin 3 H Urine Urobilinogen 8 H Ur Leukocyte Esterase 500 H Urine RBC > 100 SEEN Urine WBC 50-100 SEEN Ur Squamous Epith Cells 0 SEEN Urine Bacteria 1+ Urine Mucus 0 SEEN Radiography Diagnostic Testing: Clinical Impression(s) from Imaging Studies Abdomen/Pelvis CT 07/21/23 10:51 IMPRESSION: 1. Progression of the right ureteral stone without obstructive changes of the right renal collecting system. 2. Right nephrolithiasis. 3. Interval placement of a left double-J ureteral stent catheter. Electronically Signed: Davi Virk MD at 11:32 EST , Discharge Plan Triage Chief Complaint: Male Pain/Injury ED Provider: Josemanuel Roa Dx/Rx/DC Orders Prescriptions: No Action hydroxychloroquine 200 mg tablet 200 mg PO QHS mecobalamin (vitamin B12) 1,000 mcg tablet,chewable 1,000 mcg PO DAILY cholecalciferol (vitamin D3) 50 mcg (2,000 unit) capsule 4,000 unit PO DAILY hydrocodone-acetaminophen 5-325 mg tablet 1 tab PO Q6H PRN (Reason: Pain) aspirin [Adult Aspirin Regimen] 81 mg tablet,delayed release (DR/EC) 81 mg PO QHS oxycodone-acetaminophen 5-325 mg tablet 1 tab PO Q6H PRN (Reason: PAIN ) tamsulosin 0.4 mg Capsule 0.4 mg PO DAILY@1730 Qty: 30 0RF metoprolol succinate 25 mg tablet extended release 24 hr 25 mg PO DAILY Qty: 90 3RF Primary Care Provider: Delvis Maldonado Referrals: Delvis Maldonado DO [Primary Care Provider] - What to do if you have Problems For any increased pain, shortness of breath, bleeding, nausea or vomiting, chestpain, or any unexpected problems, contact your Primary Care Provider. Call [facility] ([phone]) or report to the closest Emergency Room. Call 911 if necessary. 07/21/23 1251 <Electronically signed by Josemanuel Roa DO> Cosigner Signature (if applicable): CC: Dr. Delvis Maldonado DO ~ Signed [facility] Work Phone: 1(608) 906-378009-30-2023 Discharge summary Author Karlos Hernandez [facility] June 15, 2023 10:16am Note Date/Time June 15, 2023 10:12am [facility] Medical Records Department [address] [place] [id number] Discharge Summary 06/15/23 1007 MR#: [id number] Acct: [id number] Name: JOHN ARRIOLA Rep #:[id number] : 1945 77 From: Karlos Hernandez DO PCP: Dr. Delvis Maldonado DO Status:ADM IN Location: [place] [address] Providers Date of Admission: 06/12/23 Primary Care Physician: Dr. Delvis Maldonado DO Consultations 06/12/23 12:02 Consult: Urology Routine Consulting Provider: Joseph Mora Reason for Consult: kidney stone EMERGENT Consult: No MD Notified: Yes Date Notified: 06/12/23 Time Notified: 10:59 Method of Notification: ED Physician Initiated Reason For Visit: KIDNEY STONE, PERICARDIAL EFFUSION Diagnosis Discharge Diagnosis (1) Urolithiasis: Status: Inactive Code(s): N20.9 - Urinary calculus, unspecified Qualifiers: Urinary calculus location: ureter Qualified Code(s): N20.1 - Calculus of ureter Plan: Right-sided Start tamsulosin Urology notified by the emergency room will see the patient in consultation. Patient medically cleared to proceed with surgery. No further optimization medically is required at this time. For cystoscopy today (2) DEENA (acute kidney injury): Status: Acute Code(s): N17.9 - Acute kidney failure, unspecified Plan: Improving. Patient has chronic kidney disease but is acutely worse likely due to post obstruction. Patient received IV fluids but with his pericardial fusion pleural effusions, I will discontinue that. I anticipate improvement after the stone has been removed. (3) Pericardial effusion: Status: Acute Code(s): I31.39 - Other pericardial effusion (noninflammatory) Plan: No clinical evidence of tamponade. Pulses paradoxus was not present. I verify that at bedside. Concerned that this may be related with underlying heart failure but patient does have known rheumatoid arthritis which could also be another factor. Echo showed an EF 55% with posterior hypokinesis. oderate anterior pericardial effusion, partially organized. No tamponade. DW Dr. Jaquez, he recommended outpt cardiac MRI. WIll have patient follow up withcardiology as outpt. (4) Pleural effusion: Status: Acute Code(s): J90 - Pleural effusion, not elsewhere classified Plan: Unclear type if this is transudative versus exudative. 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 Patient is relatively asymptomatic from that. Follow up with pulmonology. Plan Chronic conditions * CAD: Aspirin to be held on account of anticipated cystoscopy and lithotripsy * Rheumatoid arthritis: Hold hydroxychloroquine for now VTE prophylaxis: With SCDs. CODE STATUS: Addressed with the patient. Patient was to be full code. Disposition: To home today. Medications at Discharge Home Medications hydroxychloroquine 200 mg tablet 200 mg PO QHS RHEUMATOID ARTHRITIS 05/26/21 cholecalciferol (vitamin D3) 50 mcg (2,000 unit) capsule 4,000 unit PO DAILY SUPPLEMENT 08/15/22 mecobalamin (vitamin B12) 1,000 mcg chewable tablet 1,000 mcg PO DAILY SUPPLEMENT 08/15/22 aspirin 81 mg tablet,delayed release (Adult Aspirin Regimen) 81 mg PO QHS [facility] 06/12/23 hydrocodone-acetaminophen 5-325mg 5mg-325mg 1 tab PO Q6H PRN Pain 06/12/23 metoprolol succinate 25 mg tablet,extended release 24 hr 25 mg PO DAILY BLOOD PRESSURE 06/12/23 oxycodone-acetaminophen 5 mg-325 mg tablet 1 tab PO Q6H PRN PAIN 06/12/23 tamsulosin 0.4 mg capsule 0.4 mg PO DAILY@1730 #30 caps 06/15/23 Hospital Course Operations - Procedures None Summary of Care Provided Minutes Spent on Discharge: 8 Hospital Course: Patient presents with right flank pain. Patient had 8.2 calculus in the proximal right ureter with right-sided hydronephrosis and hydroureter. Was diagnosed back in June 07 but patient elected to go home at that time. Patient underwent a cystoscopy on the with a lithotripsy and stent placement on the right. Patient tolerated the procedure well. Patient also was noted to have a moderate-sized pericardial effusion. Echocardiogram showed LV ejection fraction of 55% with posterior hypokinesis andmoderate anterior pericardial effusion is partly organized but no tamponade. Did discuss with the case with Dr. Jaquez who will follow-up with the patient as outpatient and arrange for outpatient cardiac MRI. Patient denies history of rheumatoid iritis does state he has a history of osteoarthritis, however, he is on hydroxychloroquine. Weight / BMI Weight Weight: 82.781 kg Body Mass Index (BMI) 26.2 ABG / Lab / Microbiology Data 06/14/23 04:40 06/15/23 05:29 Laboratory: Laboratory Results - last 24 hr 06/15/23 05:29: Sodium 137, Potassium 4.7, Chloride 108 H, Carbon Dioxide 24.0, Anion Gap 5, BUN 51 H, Creatinine 2.91 H, Estim Creat Clear Calc 22.30, Est GFR (MDRD) Af Amer 27 L, Est GFR (MDRD) Non-Af 23 L, BUN/Creatinine Ratio 17.5, Glucose 185 H, Calcium 8.3 L D/C Instructions Discharge Diet: Low fat / Low cholesterol Call your doctor if you observe: - (Worsening abdominal pain. Blood in the urine. Chest pain. Shortness of breath.) Meaningful Use Info Meaningful Use Diagnoses (Choose all that apply): None applicable Discharge Plan Admission Admit Date/Time: 06/12/23 10:56 Primary Reason for Your Visit: Right-sided kidney stone Attending Provider: Karlos Hernandez Primary Care Provider: Delvis Maldonado Consulting Providers: Joseph Mora Instructions Additional Instructions / Restrictions: You had a stone in your ureter (to the connects your bladder to your kidneys) that was removed by urology. You do have a stent in place and you need follow-up with urology about having that removed. He also had fluid around her heart. Echocardiogram (the ultrasound of your heart) shows that it is present and you will need to follow-up with cardiology and possibly have an MRI of your heart down the road. It is unclear how long that has been there but if you do start experiencing increasing shortness of breath or increasing swelling in her legs to notify someone or to return to the emergency room immediately. Discharge Orders/Prescriptions Prescriptions: New tamsulosin 0.4 mg Capsule 0.4 mg PO DAILY@1730 Qty: 30 0RF Continued hydroxychloroquine 200 mg tablet 200 mg PO QHS mecobalamin (vitamin B12) 1,000 mcg tablet,chewable 1,000 mcg PO DAILY cholecalciferol (vitamin D3) 50 mcg (2,000 unit) capsule 4,000 unit PO DAILY hydrocodone-acetaminophen 5-325 mg tablet 1 tab PO Q6H PRN (Reason: Pain) aspirin [Adult Aspirin Regimen] 81 mg tablet,delayed release (DR/EC) 81 mg PO QHS oxycodone-acetaminophen 5-325 mg tablet 1 tab PO Q6H PRN (Reason: PAIN ) metoprolol succinate 25 mg tablet extended release 24 hr 25 mg PO DAILY Referrals / Follow Up: Delvis Maldonado DO [Primary Care Provider] - Within 2 Weeks Joseph Mora MD [Med Staff - Active Staff] - Within 1 Month Disposition Disposition (needs filled in before D/C Order can be placed): Home, Self Care Charges/Coding Visit Charges Inpatient E&M: 80893 Disch Hosp 06/15/23 1016 <Electronically signed by Karlos Hernandez DO> Cosigner Signature (if applicable): CC: Dr. Karlos Hernandez DO; Dr. Delvis Maldonado DO~ Signed [facility] Work Phone: 1(289) 583-992409-30-2023 Progress note Author Karlos Hernandez [facility] June 15, 2023 10:07am Note Date/Time June 15, 2023 7:52am [facility] Medical Records Department [address] [place] [address] Progress Note - Hospitalist 06/15/23 0750 MR#: [id number] Acct: [id number] Name: JOHN ARRIOLA Rep #:[id number] : 1945 77 From: Karlos Hernandez DO PCP: Dr. Delvis Maldonado DO Status:ADM IN Location: [place] [address] Reason for Visit Reason for Visit: Diagnoses Other pericardial effusion (noninflammatory) (06/12/23) Pleural effusion, not elsewhere classified (06/12/23) Acute kidney failure, unspecified (06/12/23) Calculus of ureter (06/12/23) Unspecified renal colic (06/12/23) Subjective Subjective Feels well today. Has some urinary frequency overnight. Objective Data Objective Data Vital Signs: Vital Signs Temp Pulse Resp BP Pulse Ox O2 Del Method 36.4 C L 93 18 127/77 H 93 Room Air 06/15/23 03:33 06/15/23 03:33 06/15/23 03:33 06/15/23 03:33 06/15/23 03:33 06/15/23 03:35 Oxygen Delivery Method Room Air Weight: 82.781 kg Body Mass Index (BMI) 26.2 Intake & Output: Intake and Output for Last 24 Hours 06/13/23 06/14/23 06/15/23 23:59 23:59 23:59 Intake Total 1640 / 1640 110 / 110 Output Total 150 / 150 Balance 1640 / 1640 -40 / -40 Lab / Micro Data 06/14/23 04:40 06/15/23 05:29 Labs: Laboratory Results - last 24 hr 06/15/23 05:29: Sodium 137, Potassium 4.7, Chloride 108 H, Carbon Dioxide 24.0, Anion Gap 5, BUN 51 H, Creatinine 2.91 H, Estim Creat Clear Calc 22.30, Est GFR (MDRD) Af Amer 27 L, Est GFR (MDRD) Non-Af 23 L, BUN/Creatinine Ratio 17.5, Glucose 185 H, Calcium 8.3 L Physical Exam Const alert and no apparent distress Neuro Sensorium / Orientation: awake Psych affect normal Assessment & Plan Assessment/Plan (1) Urolithiasis: QUALIFIERS: Urinary calculus location: ureter Qualified Code(s): N20.1 - Calculus of ureter PLAN: Right-sided Start tamsulosin Urology notified by the emergency room will see the patient in consultation. Patient medically cleared to proceed with surgery. No further optimization medically is required at this time. For cystoscopy today (2) DEENA (acute kidney injury): PLAN: Improving. Patient has chronic kidney disease but is acutely worse likely due to post obstruction. Patient received IV fluids but with his pericardial fusion pleural effusions, I will discontinue that. I anticipate improvement after the stone has been removed. (3) Pericardial effusion: PLAN: No clinical evidence of tamponade. Pulses paradoxus was not present. I verify that at bedside. Concerned that this may be related with underlying heart failure but patient does have known rheumatoid arthritis which could also be another factor. Echo showed an EF 55% with posterior hypokinesis. oderate anterior pericardial effusion, partially organized. No tamponade. DW Dr. Jaquez, he recommended outpt cardiac MRI. WIll have patient follow up withcardiology as outpt. (4) Pleural effusion: PLAN: Unclear type if this is transudative versus exudative. 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 Patient is relatively asymptomatic from that. Follow up with pulmonology. PLAN: Plan Chronic conditions * CAD: Aspirin to be held on account of anticipated cystoscopy and lithotripsy * Rheumatoid arthritis: Hold hydroxychloroquine for now VTE prophylaxis: With SCDs. CODE STATUS: Addressed with the patient. Patient was to be full code. Disposition: To home today. 06/15/23 1007 <Electronically signed by Karlos Hernandez DO> Cosigner Signature (if applicable): CC: ~ Signed [facility] Work Phone: 1(299) 717-723709-29-2023 Progress note Author Karlos Hernandez [facility] June 14, 2023 4:52pm Note Date/Time June 14, 2023 8:48am [facility] Medical Records Department [address] [place] [address] Progress Note - Hospitalist 06/14/23 0847 MR#: [id number] Acct: [id number] Name: JOHN ARRIOLA Rep #:[id number] : 1945 77 From: Karlos Hernandez DO PCP: Dr. Delvis Maldonado, DO Status:ADM IN Location: [place] [address] 1 Reason for Visit Reason for Visit: Diagnoses Other pericardial effusion (noninflammatory) (06/12/23) Pleural effusion, not elsewhere classified (06/12/23) Acute kidney failure, unspecified (06/12/23) Calculus of ureter (06/12/23) Unspecified renal colic (06/12/23) Subjective Subjective Feels well. No pain. Objective Data Objective Data Vital Signs: Vital Signs Temp Pulse Resp BP Pulse Ox O2 Del Method 36.8 C 105 H 16 133/81 H 95 Room Air 06/14/23 08:02 06/14/23 08:02 06/14/23 08:02 06/14/23 08:02 06/14/23 08:02 06/14/23 08:02 Oxygen Delivery Method Room Air Weight: 82.781 kg Body Mass Index (BMI) 26.2 Intake & Output: Intake and Output for Last 24 Hours 06/12/23 06/13/23 06/14/23 23:59 23:59 23:59 Intake Total 1000 / 1000 1640 / 1640 Balance 1000 / 1000 1640 / 1640 Lab / Micro Data 06/14/23 04:40 06/14/23 04:40 Labs: Laboratory Results - last 24 hr 06/14/23 04:40: WBC 6.7, RBC 3.95 L, Hgb 11.7 L, Hct 36.6 L, MCV 92.7, MCH 29.6,MCHC 32.0, RDW Std Deviation 43.4, RDW Coeff of [place]il[place] 12.7, Plt Count 241, MPV 9.8, Immature Gran % (Auto) 1.000 H, Neut % (Auto) 79.1 H, Lymph % (Auto) 8.4 L,Cook % (Auto) 9.0, Eos % (Auto) 1.8, Baso % (Auto) 0.7, Absolute Neuts (auto) 5.3, Absolute Lymphs (auto) 0.56 L, Nucleated RBC % 0, Differential Comment SCANNED, Sodium 136, Potassium 4.1, Chloride 107, Carbon Dioxide 22.0, Anion Gap7, BUN 48 H, Creatinine 3.76 H, Estim Creat Clear Calc 17.26, Est GFR (MDRD) Af Amer 20 L, Est GFR (MDRD) Non-Af 17 L, BUN/Creatinine Ratio 12.8, Glucose 105, Calcium 8.1 L, TSH 2.54 Radiography Diagnostic Testing: Radiology Impression Echocardiogram 06/12/23 12:02 Interpretation Summary The left ventricular ejection fraction is 55 %. Posterior hypokinesis Moderate anterior pericardial effusion. Partly organized. No tamponade. Recommend cardiac MRI for further evaluation. Ordering Physician: Karlos Hernandez Performed By: Konstantin Perez RCS Physical Exam Const alert and no apparent distress Neuro Sensorium / Orientation: awake Psych affect normal Assessment & Plan Assessment/Plan (1) Urolithiasis: QUALIFIERS: Urinary calculus location: ureter Qualified Code(s): N20.1 - Calculus of ureter PLAN: Right-sided Start tamsulosin Urology notified by the emergency room will see the patient in consultation. Patient medically cleared to proceed with surgery. No further optimization medically is required at this time. For cystoscopy today (2) DEENA (acute kidney injury): PLAN: Slightly improved today Patient has chronic kidney disease but is acutely worse likely due to post obstruction. Patient received IV fluids but with his pericardial fusion pleural effusions, I will discontinue that. I anticipate improvement after the stone has been removed. (3) Pericardial effusion: PLAN: No clinical evidence of tamponade. Pulses paradoxus was not present. I verify that at bedside. Concerned that this may be related with underlying heart failure but patient does have known rheumatoid arthritis which could also be another factor. Echo showed an EF 55% with posterior hypokinesis. oderate anterior pericardial effusion, partially organized. No tamponade. DW Dr. Jaquez, he recommended outpt cardiac MRI. WIll have patient follow up withcardiology as outpt. (4) Pleural effusion: PLAN: Unclear type if this is transudative versus exudative. 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 Patient is relatively asymptomatic from that. Follow up with pulmonology. PLAN: Plan Chronic conditions * CAD: Aspirin to be held on account of anticipated cystoscopy and lithotripsy * Rheumatoid arthritis: Hold hydroxychloroquine for now VTE prophylaxis: With SCDs. CODE STATUS: Addressed with the patient. Patient was to be full code. Disposition: Discharge to be determined. Anticipate patient going home. Charges/Coding Visit Charges Inpatient E&M: 85861 Subs Hosp L1 06/14/23 1410 <Electronically signed by Karlos Hernandez DO> Cosigner Signature (if applicable): CC: ~ Signed ADDENDUM by Dr. Karlos Hernandez DO on 06/14/23 at 1652 Addendum Saw patient in PACU. Feeling ok. Will monitor overnight and if does well, hopefully discharge in AM. 06/14/23 1652<Electronically signed by Karlos Hernandez DO> Cosigner Signature (if applicable): cc: ~* Signed [facility] Work Phone: 1(742) 289-803009-29-2023 Procedure [facility] 06-13-2023 Progress note Author [facility] June 13, 2023 3:07pm Note Date/Time June 13, 2023 8:32am [facility] Medical Records Department [address] [place] [address] Progress Note - Hospitalist 06/13/2331 MR#: [id number] Acct: [id number] Name: JOHN ARRIOLA Rep #:[id number] : 1945 77 From: Karlos Hernandez DO PCP: Dr. Delvis Maldonado DO Status:ADM IN Location: [place] [address]- 1 Reason for Visit Reason for Visit: Diagnoses Other pericardial effusion (noninflammatory) (06/12/23) Pleural effusion, not elsewhere classified (06/12/23) Acute kidney failure, unspecified (06/12/23) Calculus of ureter (06/12/23) Unspecified renal colic (06/12/23) Subjective Subjective No events. Objective Data Objective Data Vital Signs: Vital Signs Temp Pulse Resp BP Pulse Ox O2 Del Method 36.4 C L 99 16 121/85 H 93 Room Air 06/13/23 03:05 06/13/23 03:05 06/13/23 03:05 06/13/23 03:05 06/13/23 03:05 06/13/23 03:07 Oxygen Delivery Method Room Air Weight: 82.781 kg Body Mass Index (BMI) 26.2 Intake & Output: Intake and Output for Last 24 Hours 06/11/23 06/12/23 06/13/23 23:59 23:59 23:59 Intake Total 1000 / 1000 Balance 1000 / 1000 Lab / Micro Data 06/13/23 05:29 06/13/23 05:29 Labs: Laboratory Results - last 24 hr 06/12/23 08:00: Differential Comment SCANNED 06/13/23 05:29: WBC 6.8, RBC 3.74 L, Hgb 11.0 L, Hct 34.2 L, MCV 91.4, MCH 29.4,MCHC 32.2, RDW Std Deviation 42.6, RDW Coeff of [place]ilson 12.8, Plt Count 257, MPV 9.7, Immature Gran % (Auto) 1.000 H, Neut % (Auto) 78.4 H, Lymph % (Auto) 8.0 L,Cook % (Auto) 11.0 H, Eos % (Auto) 1.0, Baso % (Auto) 0.6, Absolute Neuts (auto)5.3, Absolute Lymphs (auto) 0.54 L, Nucleated RBC % 0, Differential Comment SCANNED, Sodium 137, Potassium 4.1, Chloride 107, Carbon Dioxide 22.0, Anion Gap8, BUN 47 H, Creatinine 3.64 H, Estim Creat Clear Calc 17.83, Est GFR (MDRD) Af Amer 21 L, Est GFR (MDRD) Non-Af 17 L, BUN/Creatinine Ratio 12.9, Glucose 97, Calcium 7.9 L Radiography Diagnostic Testing: Radiology Impression Chest/Abdomen/Pelvis CT 06/12/23 07:40 IMPRESSION: Moderate-sized pericardial effusion which has progressed as compared to prior study. Bilateral pleural effusions left greater than right with bibasilar atelectasis. 8.2 mm calculus in the proximal portion of the right ureter with mild right hydronephrosis and proximal right hydroureter. Prostatic enlargement with indentation at the bladder base. The remainder of the examination is unchanged. Electronically Signed: Hugh Rivera MD at 8:47 EDT , Physical Exam Const alert and no apparent distress Constitutional Narrative: up in chair eating breakfast. HEENT head/scalp atraumatic Neuro Sensorium / Orientation: awake and alert Assessment & Plan Assessment/Plan (1) Urolithiasis: QUALIFIERS: Urinary calculus location: ureter Qualified Code(s): N20.1 - Calculus of ureter PLAN: Right-sided Start tamsulosin Urology notified by the emergency room will see the patient in consultation. Patient medically cleared to proceed with surgery. No further optimization medically is required at this time. (2) DEENA (acute kidney injury): PLAN: Slightly improved today Patient has chronic kidney disease but is acutely worse likely due to post obstruction. Patient received IV fluids but with his pericardial fusion pleural effusions, I will discontinue that. I anticipate improvement after the stone has been removed. (3) Pericardial effusion: PLAN: No clinical evidence of tamponade. Pulses paradoxus was not present. I verify that at bedside. Concerned that this may be related with underlying heart failure but patient does have known rheumatoid arthritis which could also be another factor. Echo showed an EF 55% with posterior hypokinesis. oderate anterior pericardial effusion, partially organized. No tamponade. DW Dr. Jaquez, he recommended outpt cardiac MRI. WIll have patient follow up withcardiology as outpt. (4) Pleural effusion: PLAN: Unclear type if this is transudative versus exudative. 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 Patient is relatively asymptomatic from that. May consider follow-up as outpatient. PLAN: Plan Chronic conditions * CAD: Aspirin to be held on account of anticipated cystoscopy and lithotripsy * Rheumatoid arthritis: Hold hydroxychloroquine for now VTE prophylaxis: With SCDs. CODE STATUS: Addressed with the patient. Patient was to be full code. Disposition: Discharge to be determined. Anticipate patient going home. Greater than 35 minutes of which greater than 50% of the time was discussed withthe patient at bedside about the pericardial effusion, pleural effusion as well as ureteral stone. Explained indication for echocardiogram, which was not done at that time, and further potential follow-up recommendations. Charges/Coding Visit Charges Inpatient E&M: 96039 Subs Hosp L2 06/13/23 1507 <Electronically signed by Karlos Hernandez DO> Cosigner Signature (if applicable): CC: ~ Signed [facility] Work Phone: 1(347) 702-123709-28-2023 Discharge summary Author Anju Alexis [facility] June 13, 2023 9:35am Note Date/Time June 12, 2023 7:44am [facility] Medical Records Department [address] [place] [address] Emergency Department Summary 06/12/23 MR#: [id number] Acct: [id number] Name: JOHN ARRIOLA Rep #:[id number] : 1945 77 From: Anju Alexis MD PCP: Dr. Delvis Maldonado DO Status:ADM IN Location: [place] [address] HPI History of Present Illness Chief Complaint: Other, Pain/Inj Informant: patient Narrative Narrative: Patient presents secondary to continued pain. Patient was seen in the emergencyroom in early May secondary to pain across his upper shoulders and wrapping around into his chest. He states he had that intermittently for quite some time and continues to complain of the symptoms. Patient was also seen lastweek secondary to right flank pain and was found to have a 6 mm proximal right ureter stone. He states he still has pain to this area and is unsure if he has passed the stone. He has had a couple episodes of chills and some nausea. No vomiting. No fever. He has been taking oxycodone intermittently. He states that this does not make his pain subside. [facility] Medical History DEENA (acute kidney injury) Arthritis Atherosclerosis of [place] coronary artery of [place] heart without angina pectoris BPH (benign prostatic hyperplasia) Calculus of proximal right ureter Chronic kidney disease (CKD) Dilated aortic root Essential (primary) hypertension History of non-ST elevation myocardial infarction (NSTEMI) (12/2015) Hyperlipidemia Hypothyroidism Mass of anus Obstructive sleep apnea Plantar fasciitis Tubular adenoma of colon (09/26/20) Type 2 diabetes mellitus without complications Home Medications aspirin 81 mg tablet,delayed release (Adult Aspirin Regimen) 81 mg PO QDAY #90 tabs 05/26/21 [Rx Last Taken Unknown] hydroxychloroquine 200 mg tablet 200 mg PO DAILY 05/26/21 [History Last Taken Unknown] metoprolol succinate 25 mg tablet,extended release 24 hr See Rx Instructions .Route .COMPLEX #45 tabs 07/13/22 [Rx Last Taken Unknown] cholecalciferol (vitamin D3) 50 mcg (2,000 unit) capsule 4,000 unit PO DAILY SUPPLEMENT 08/15/22 [History Last Taken Unknown] mecobalamin (vitamin B12) 1,000 mcg chewable tablet 1,000 mcg PO DAILY 08/15/22 [History Last Taken Unknown] hydrocodone-acetaminophen 5-325mg 5mg-325mg 1 tab PO Q6H PRN PRN Pain 3 days #10TABLETS 05/25/23 [Rx Last Taken Unknown] oxycodone-acetaminophen 5 mg-325 mg tablet 1 tab PO Q6H PRN PRN pain 5 days #20 TABLETS 06/07/23 [Rx Last Taken Unknown] Allergy/AdvReac Type Severity Reaction Status Date / Time rosuvastatin [From Crestor] AdvReac Severe Myalgias Verified 06/12/23 07:24 and joint pain Family History Mother CAD (coronary artery disease) Hx of CABG Father CAD (coronary artery disease) Hx of CABG Brother CAD (coronary artery disease) Hx of CABG Myocardial infarction Diabetes Surgical History History of colonoscopy (2007) History of colonoscopy (09/26/20) History of coronary artery stent placement (12/25/15) History of esophagogastroduodenoscopy (EGD) (2005) History of hemorrhoidectomy History of left heart catheterization (12/2015) History of nasal septoplasty History of ureter stent (12/2019) Social History Smoking Status: Former smoker alcohol intake: current alcohol intake frequency: a few times a week Alcohol type: beer substance use type: does not use caffeine: Yes Type: coffee what type of physical activity do you participate in: walking frequency: daily duration: 30-45 minutes/day seatbelt use: always do you feel safe at home: Yes ROS ROS ED Constitutional Constitutional ED: Reports chills; Denies fever(s) Eyes Eyes: Denies change in vision or discharge from eye(s) ENT ENT ED: Denies discharge from eye(s), rhinorrhea or sore throat Cardiovascular Cardiovascular: Reports chest pain; Denies palpitations Respiratory/Chest Respiratory/Chest: Denies cough or dyspnea Gastrointestinal Gastrointestinal: Reports abdominal pain and nausea; Denies diarrhea or vomiting Genitourinary Genitourinary ED: Denies difficulty urinating, dysuria or hematuria Musculoskeletal Musculoskeletal: Reports back pain; Denies extremity pain Integumentary Denies Abrasions or rash Neurologic Neurologic: Denies headache(s) or weakness Psychiatric Psychiatric: Denies anxiety or depression Allergic/Immunologic Allergic/Immunologic ED: Denies lip swelling or urticaria EXAM Physical Exam Const Vital Signs: 06/12/23 07:22 06/12/23 07:47 06/12/23 09:45 Temperature 97.7 F L Temperature Source Temporal Pulse Rate 115 H 99 Respiratory Rate 16 17 Respiratory Pattern Normal Blood Pressure 140/89 H Blood Pressure Mean 106 Pulse Ox 97 97 Oxygen Delivery Method Room Air Room Air Positive well nourished and well developed General Appearance ED: well developed HEENT Reports normocephalic and head/scalp atraumatic Eyes PERRL and EOMs intact bilaterally Neck supple Chest Wall inspection of chest normal and palpation of chest normal Resp normal respiratory effort and clear to auscultation bilaterally Cardio regular rate and regular rhythm GI normal to inspection, nondistended, normoactive bowel sounds Palpation: soft Extremity normal to inspection Neuro oriented x3 and no sensory deficits noted Sensorium / Orientation: alert Motor Exam: strength 5/5 throughout Psych mental status grossly normal Skin no rashes or lesions noted MDM MDM MDM Narrative Medical decision making narrative: Patient placed on cardiac cath tech. Patient given morphine, Zofran, IV fluids. EKG obtained to evaluate for cardiac arrhythmia/ischemia. Labwork obtained to evaluate for leukocytosis, anemia, and electrolyte derangement. Urinalysis obtained to evaluate for infection/hematuria. CT scan of the chest obtained as patient does have a history of dilated aortic root. Due to his chronic renal failure IV contrast is not ordered. Repeat CT flank also obtained given the patient's ongoing pain and previous proximal ureteral stone. History & Record Review Discussion w/independent historian: Patient Additional record(s) reviewed:: Prior ED visit and Prior labs Lab Data Attestation: I reviewed the patient's lab results. Labs: Laboratory Results - last 24 hr 06/12/23 08:00 WBC 10.4 RBC 4.24 L Hgb 12.6 L Hct 38.9 L MCV 91.7 MCH 29.7 MCHC 32.4 RDW Std Deviation 42.0 RDW Coeff of Denilson 12.7 Plt Count 303 MPV 9.7 Immature Gran % (Auto) 0.700 Neut % (Auto) 86.9 H Lymph % (Auto) 3.5 L Cook % (Auto) 8.4 Eos % (Auto) 0.2 Baso % (Auto) 0.3 Absolute Neuts (auto) 9.1 H Absolute Lymphs (auto) 0.36 L Nucleated RBC % 0 Differential Comment SCANNED Sodium 135 L Potassium 4.0 Chloride 105 Carbon Dioxide 21.0 Anion Gap 9 BUN 46 H Creatinine 3.79 H Estim Creat Clear Calc 17.12 Est GFR (MDRD) Af Amer 20 L Est GFR (MDRD) Non-Af 17 L BUN/Creatinine Ratio 12.1 Glucose 119 H Calcium 8.6 Total Bilirubin 0.60 Direct Bilirubin 0.30 AST 22 ALT 41 Alkaline Phosphatase 153 H Troponin I High Sens 11 Total Protein 7.1 Albumin 2.6 L Globulin 4.5 H Urine Color Yellow Urine Clarity Clear Urine pH 6.0 Ur Specific [place] 1.020 Urine Protein 30 H Urine Glucose (UA) Normal Urine Ketones 15 H Urine Occult Blood 150 H Urine Nitrite Negative Urine Bilirubin Negative Urine Urobilinogen Normal Ur Leukocyte Esterase Negative Urine RBC 0-5 SEEN Urine WBC 0-5 SEEN Ur Squamous Epith Cells 0 SEEN Urine Bacteria Not Reportable Fine Granular Casts 5-10 SEEN Coarse Granular Casts VENEER [employer]NER Urine Mucus 0 SEEN Radiography Diagnostic Testing: Clinical Impression(s) from Imaging Studies Chest/Abdomen/Pelvis CT 06/12/23 07:40 IMPRESSION: Moderate-sized pericardial effusion which has progressed as compared to prior study. Bilateral pleural effusions left greater than right with bibasilar atelectasis. 8.2 mm calculus in the proximal portion of the right ureter with mild right hydronephrosis and proximal right hydroureter. Prostatic enlargement with indentation at the bladder base. The remainder of the examination is unchanged. Electronically Signed: Hugh Rivera MD at 8:47 EDT , EKG Initial EKG: Attestation: I personally reviewed and interpreted this EKG as follows: Interpretation: Sinus Tachycardia (Sinus tachycardia at 109. Nonspecific T wave flattening. No acute ischemia.) Treatment and Re-Evaluation :: CBC was normal white count at 10.4 with a hemoglobin of 12.6. Chemistry studiesreveal a sodium of 135. Potassium is normal at 4. BUN is 46 and creatinine is 3.79. His baseline creatinine appears to be in the low twos. Troponin is normal at 11. Urinalysis reveals no evidence of acute infection. Small amount of blood noted along with [address] scan of the chest, abdomen, and pelvisobtained without contrast. Patient has a moderate size pericardial effusion. There are also bilateral pleural effusions left greater than right with bibasilar atelectasis. There is an 8.2 mm calculus in the proximal portion of the right ureter with mild right hydronephrosis. I spoke with Dr. Mora, on-call for urology. He does feel the patient will require admission and intervention given his worsening renal function and large size stone. Given the patient has a pericardial effusion and is having some pain across his shoulders and upper back, he did request medicine admit the patient for this work-up and he will see the patient regarding the kidney stone. I will speak with the hospitalist. Discharge Plan Triage Chief Complaint: Other, Pain/Inj ED Provider: Anju Alexis Dx/Rx/DC Orders Clinical Impression: DEENA (acute kidney injury), Pericardial effusion, Ureterolithiasis Prescriptions: No Action hydroxychloroquine 200 mg tablet 200 mg PO DAILY aspirin [Adult Aspirin Regimen] 81 mg tablet,delayed release (DR/EC) 81 mg PO QDAY Qty: 90 3RF mecobalamin (vitamin B12) 1,000 mcg tablet,chewable 1,000 mcg PO DAILY cholecalciferol (vitamin D3) 50 mcg (2,000 unit) capsule 4,000 unit PO DAILY hydrocodone-acetaminophen 5-325 mg tablet 1 tab PO Q6H PRN PRN (Reason: Pain) 3 Days Qty: 10 0RF oxycodone-acetaminophen [oxycodone-acetaminophen] 5-325 mg tablet 1 tab PO Q6H PRN PRN (Reason: pain) 5 Days Qty: 20 0RF metoprolol succinate 25 mg tablet extended release 24 hr See Rx Instructions .ROUTE .COMPLEX Qty: 45 3RF Dose Instruction: TAKE ONE-HALF (1/2) TABLET DAILY FOR BLOOD PRESSURE Rx Instructions: TAKE ONE-HALF (1/2) TABLET DAILY FOR BLOOD PRESSURE Primary Care Provider: Delvis Maldonado Referrals: Delvis Maldonado, [Primary Care Provider] - Disposition Disposition: Acute Care [facility] What to do if you have Problems For any increased pain, shortness of breath, bleeding, nausea or vomiting, chestpain, or any unexpected problems, contact your Primary Care Provider. Call [facility] ([phone]) or report to the closest Emergency Room. Call 911 if necessary. 06/13/23 0935 <Electronically signed by Anju Alexis MD> Cosigner Signature (if applicable): CC: Dr. Delvis Maldonado, ~ Signed [facility] Work Phone: [phone]) 306-333809-27-2023 Consult note Author Joseph Mora [facility] June 12, 2023 11:20am Note Date/Time June 12, 2023 11:20am [facility] Medical Records Department [address] [place] [address] Consultation - Urology 06/12/23 1117 MR#: [id number] Acct: [id number] Name: HANNAHJOHN MICHEL Rep #:[id number] : 1945 77 From: Joseph Mora MD PCP: Dr. Delvis Maldonado DO Status:ADM IN Location: [place] [id number] Assessment & Plan Assessment/Plan (1) Ureterolithiasis: PLAN: plan for Right ESWL and stent on Saturday. (2) Ureteral colic: HPI Consult Data Date of Consult: 06/12/23 HPI Narrative Reason for Consultation: Right proximal large ureteral calculi HPI Narrative: JOHN ARRIOLA, is a 77 M who presents to the hospital obstructing stone and in the proximal right ureter he also has a pleural effusion history of coronary artery disease and multiple medical problems including acute kidney injury. He is being admitted today for pain control and medical management. Plan to put him on the schedule Saturday for cystoscopy right stent placement and right ESWL. [facility] Medical History DEENA (acute kidney injury) Arthritis Atherosclerosis of [place] coronary artery of [place] heart without angina pectoris BPH (benign prostatic hyperplasia) Calculus of proximal right ureter Chronic kidney disease (CKD) Dilated aortic root Essential (primary) hypertension History of non-ST elevation myocardial infarction (NSTEMI) (12/2015) Hyperlipidemia Hypothyroidism Mass of anus Obstructive sleep apnea Plantar fasciitis Tubular adenoma of colon (09/26/20) Type 2 diabetes mellitus without complications Home Medications hydroxychloroquine 200 mg tablet 200 mg PO QHS RHEUMATOID ARTHRITIS 05/26/21 [History Last Taken 06/11/23] cholecalciferol (vitamin D3) 50 mcg (2,000 unit) capsule 4,000 unit PO DAILY SUPPLEMENT 08/15/22 [History Last Taken 06/11/23] mecobalamin (vitamin B12) 1,000 mcg chewable tablet 1,000 mcg PO DAILY SUPPLEMENT 08/15/22 [History Last Taken 06/11/23] aspirin 81 mg tablet,delayed release (Adult Aspirin Regimen) 81 mg PO QHS HEART HEALTH 06/12/23 [History Last Taken 06/11/23] hydrocodone-acetaminophen 5-325mg 5mg-325mg 1 tab PO Q6H PRN Pain 06/12/23 [History Last Taken Unknown] metoprolol succinate 25 mg tablet,extended release 24 hr 25 mg PO DAILY BLOOD PRESSURE 06/12/23 [History Last Taken 06/12/23] oxycodone-acetaminophen 5 mg-325 mg tablet 1 tab PO Q6H PRN PAIN 06/12/23 [History Last Taken 06/11/23] Allergy/AdvReac Type Severity Reaction Status Date / Time rosuvastatin [From Crestor] AdvReac Severe Myalgias Verified 06/12/23 07:24 and joint pain Family History Mother CAD (coronary artery disease) Hx of CABG Father CAD (coronary artery disease) Hx of CABG Brother CAD (coronary artery disease) Hx of CABG Myocardial infarction Diabetes Surgical History History of colonoscopy (2007) History of colonoscopy (09/26/20) History of coronary artery stent placement (12/25/15) History of esophagogastroduodenoscopy (EGD) (2005) History of hemorrhoidectomy History of left heart catheterization (12/2015) History of nasal septoplasty History of ureter stent (12/2019) Social History Smoking Status: Former smoker alcohol intake: current alcohol intake frequency: a few times a week Alcohol type: beer substance use type: does not use caffeine: Yes Type: coffee what type of physical activity do you participate in: walking frequency: daily duration: 30-45 minutes/day seatbelt use: always do you feel safe at home: Yes ROS Constitutional Constitutional: Denies chills, fever(s) or malaise Eyes Eyes: Denies blurry vision or change in vision ENT HEENT: Reports none Cardiovascular Cardiovascular: Denies chest pain or palpitations Respiratory/Chest Respiratory/Chest: Denies cough or shortness of breath with exertion Gastrointestinal Gastrointestinal: Denies abdominal pain, constipation or diarrhea Musculoskeletal Musculoskeletal: Denies back pain, joint stiffness or joint swelling Integumentary Integumentary: Denies dry skin, jaundice, lesions or rash Neurologic Neurologic: Denies confusion, syncope or weakness Psychiatric Psychiatric: Reports none; Denies anxiety or depression Endocrine Endocrinology: Denies excessive sweating, fatigue or flushing Hematologic/Lymphatic Hematologic/Lymphatic: Denies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 the distal right ureter and place a right stent [facility] Medical History DEENA (acute kidney injury) Arthritis Atherosclerosis of [place] coronary artery of [place] heart without angina pectoris BPH (benign prostatic hyperplasia) Calculus of proximal right ureter Chronic kidney disease (CKD) Dilated aortic root Essential (primary) hypertension History of non-ST elevation myocardial infarction (NSTEMI) (12/2015) Hyperlipidemia Hypothyroidism Mass of anus Obstructive sleep apnea Plantar fasciitis Tubular adenoma of colon (09/26/20) Type 2 diabetes mellitus without complications Home Medications hydroxychloroquine 200 mg tablet 200 mg PO QHS RHEUMATOID ARTHRITIS 05/26/21 [History Last Taken 06/11/23] cholecalciferol (vitamin D3) 50 mcg (2,000 unit) capsule 4,000 unit PO DAILY SUPPLEMENT 08/15/22 [History Last Taken 06/11/23] mecobalamin (vitamin B12) 1,000 mcg chewable tablet 1,000 mcg PO DAILY SUPPLEMENT 08/15/22 [History Last Taken 06/11/23] aspirin 81 mg tablet,delayed release (Adult Aspirin Regimen) 81 mg PO QHS [facility] 06/12/23 [History Last Taken 06/11/23] hydrocodone-acetaminophen 5-325mg 5mg-325mg 1 tab PO Q6H PRN Pain 06/12/23 [History Last Taken Unknown] oxycodone-acetaminophen 5 mg-325 mg tablet 1 tab PO Q6H PRN PAIN 06/12/23 [History Last Taken 06/11/23] tamsulosin 0.4 mg capsule 0.4 mg PO DAILY@1730 #30 caps 06/15/23 [Rx Last Taken Unknown] metoprolol succinate 25 mg tablet,extended release 24 hr 25 mg PO DAILY BLOOD PRESSURE #90 tabs 06/24/23 [Rx Last Taken Unknown] Allergy/AdvReac Type Severity Reaction Status Date / Time rosuvastatin [From Crestor] AdvReac Severe Myalgias Verified 07/21/23 10:22 and joint pain Family History Mother CAD (coronary artery disease) Hx of CABG Father CAD (coronary artery disease) Hx of CABG Brother CAD (coronary artery disease) Hx of CABG Myocardial infarction Diabetes Surgical History History of colonoscopy (2007) History of colonoscopy (09/26/20) History of coronary artery stent placement (12/25/15) History of esophagogastroduodenoscopy (EGD) (2005) History of hemorrhoidectomy History of left heart catheterization (12/2015) History of nasal septoplasty History of ureter stent (12/2019) Social History Smoking Status: Former smoker alcohol intake: current alcohol intake frequency: a few times a week Alcohol type: beer substance use type: does not use caffeine: Yes Type: coffee what type of physical activity do you participate in: walking frequency: daily duration: 30-45 minutes/day seatbelt use: always do you feel safe at home: Yes ROS Constitutional Constitutional: Denies chills, fever(s) or malaise Eyes Eyes: Denies blurry vision or change in vision ENT HEENT: Reports none Cardiovascular Cardiovascular: Denies chest pain or palpitations Respiratory/Chest Respiratory/Chest: Denies cough or shortness of breath with exertion Gastrointestinal Gastrointestinal: Denies abdominal pain, constipation or diarrhea Musculoskeletal Musculoskeletal: Denies back pain, joint stiffness or joint swelling Integumentary Integumentary: Denies dry skin, jaundice, lesions or rash Neurologic Neurologic: Denies confusion, syncope or weakness Psychiatric Psychiatric: Reports none; Denies anxiety or depression Endocrine Endocrinology: Denies excessive sweating, fatigue or flushing Hematologic/Lymphatic Hematologic/Lymphatic: Denies anemia, easy bleeding or easy bruising Vital Signs Vital Signs Vital Signs: 07/21/23 10:03 07/21/23 10:27 07/21/23 11:25 Temperature 98 F 98.2 F Temperature Source Temporal Oral Pulse Rate 128 H 119 H 116 H Respiratory Rate 18 18 20 H Blood Pressure 120/77 111/64 109/61 Blood Pressure Mean 91 79 77 Blood Pressure Source Blood Pressure Position Blood Pressure Location Pulse Ox 99 96 96 Oxygen Delivery Method Room Air Room Air Room Air 07/21/23 12:26 07/21/23 12:47 Temperature 98.6 F Temperature Source Oral Pulse Rate 119 H 116 H Respiratory Rate 35 H 27 H Blood Pressure 106/65 105/61 Blood Pressure Mean 78 75 Blood Pressure Source Monitor Blood Pressure Position Semi-Fowlers Blood Pressure Location Right Arm Pulse Ox 95 95 Oxygen Delivery Method Room Air Room Air Weight Weight: 77.519 kg Body Mass Index (BMI) 25.2 Physical Exam Const alert and oriented x3 General Appearance: cooperative HEENT normocephalic and head/scalp atraumatic Eyes PERRL and EOMs intact bilaterally Neck supple, no JVD and no carotid bruits Resp normal respiratory effort, normal air movement and clear to auscultation bilaterally Cardio regular rate and no murmurs GI normal to inspection, nondistended, normoactive bowel sounds and soft to palpation Extremity normal capillary refill General Extremity: no tenderness to palpation of joints or extremities; Negativefor edema Skin no rashes or lesions noted and no wounds General Skin Exam: no breakdown Neuro CN's II-XII intact bilaterally Psych affect normal Appearance: appropriate Results Medical Records Data Attestation: I reviewed the patient's medical records Lab / Micro Data 07/21/23 10:21 07/21/23 10:21 Labs: Laboratory Results - last 24 hr 07/21/23 10:17: Urine Color Yellow, Urine Clarity Cloudy, Urine pH 6.5, Ur Specific [place] 1.015, Urine Protein 100 H, Urine Glucose (UA) Normal, Urine Ketones 5 H, Urine Occult Blood 250 H, Urine Nitrite Positive H, Urine Bilirubin3 H, Urine Urobilinogen 8 H, Ur Leukocyte Esterase 500 H, Urine RBC > 100 SEEN, Urine WBC 50-100 SEEN, Ur Squamous Epith Cells 0 SEEN, Urine Bacteria 1+, Urine Mucus 0 SEEN 07/21/23 10:21: WBC 28.6 H, RBC 4.63, Hgb 13.4, Hct 42.3, MCV 91.4, MCH 28.9, MCHC 31.7 L, RDW Std Deviation 46.3 H, RDW Coeff of Denilson 14.0, Plt Count 210, MPV9.4, Neut % (Auto) Not Reportable, Absolute Neuts (auto) 26.6 H, Absolute Lymphs(auto) 1.14, Total Counted 100, Neutrophils % (Manual) 87 H, Band Neutrophils % 5, Lymphocytes % (Manual) 4 L, Monocytes % (Manual) 3, Metamyelocytes % 1, Differential Comment SCANNED, Diff Path Review May foll, Platelet Estimate ADEQUATE, RBC Morphology NORM C+C, Sodium 137, Potassium 3.7, Chloride 102, Carbon Dioxide 28.0, Anion Gap 7, BUN 28 H, Creatinine 2.63 H, Estim Creat ClearCalc 23.90, Est GFR (MDRD) Af Amer 31 L, Est GFR (MDRD) Non-Af 25 L, BUN/Creatinine Ratio 10.6, Glucose 157 H, Calcium 8.6 07/21/23 11:20: PT 15.3 H, INR 1.2, Lactic Acid 1.8 Radiology Impression Abdomen/Pelvis CT 07/21/23 10:51 IMPRESSION: 1. Progression of the right ureteral stone without obstructive changes of the right renal collecting system. 2. Right nephrolithiasis. 3. Interval placement of a left double-J ureteral stent catheter. Electronically Signed: Davi Virk MD at 11:32 EST , Assessment & Plan Assessment/Plan (1) Right ureteral calculus: PLAN: Plan to proceed with right ureteroscopy laser lithotripsy of stone and stent placement this is a new stone from the right side (2) Left renal stone: PLAN: Plan to proceed with cystoscopy and removal of left stent he had prior stones treated on the left side and looks like there is no more remaining stoneson the left side so we will remove the stent. PLAN: Plan Also appears to have a urinary tract infection we will put him on Rocephin and admit the patient for UTI sepsis 07/21/23 1353 <Electronically signed by Joseph Mora MD> Cosigner Signature (if applicable): CC: Dr. Joseph Mora MD; Dr. Delvis Maldonado DO~ Signed [facility] Work Phone: Hospital Discharge instructions Additional Instructions Please follow-up. Please return for any worsening symptoms. Your creatinine and GFR are improving.[facility] Work Phone: Hospital Discharge instructions Additional Inst[facility]: [facility] Reason for referral (narrative)* Outpatient Procedure (Routine) - Authorized Specialty Diagnoses / Procedures Referred By Erum bush Referred To Contact [facility] Diagnoses Anal fissure Procedures SIGMOIDOSCOPY SIGMOIDOSCOPY FLX DX W/COLLJ SPE[place] BR/[place] [address] [place] [address] [facility] [place] [address] [place] [address] Referral ID Status Reason Start Date Expiration Date Visits Requested Visits Authorized [id number] Authorized Auto-Generat ed Referral 06/20/2022 06/20/2023 1 1 [facility] for visit Narrative* Outpatient Procedure (Routine) - Closed Specialty Diagnoses / Procedures Referred By Erum bush Referred To Contact [facility] Diagnoses Anal fissure Procedures SIGMOIDOSCOPY SIGMOIDOSCOPY FLX DX W/COLLJ SPE[place] BR/[place] [address] [address] [place] [address] [facility] [facility] [address] [place] [address] Referral ID Status Reason Start Date Expiration Date V isits Requested Visits Authorized [id number] Closed Auto-Generate d Referral 06/20/2022 06/20/2023 1 1 [facility] Chief Complaint and Reason for Visit Chief Complaint INT LABS 6 M FU ROUTINE CHECK Reason for Visit Essential (primary) hypertension History of coronary artery stent placement Hyperlipidemia Chief Complaint INT LABS 8 m fu Reason for Visit Essential (primary) hypertension History of coronary artery stent placement Hyperlipidemia Chief Complaint INT LABS 8 m fu DUE ON OR AROUND 09/04/22 PER ORDER Reason for Visit Essential (primary) hypertension History of coronary artery stent placement Hyperlipidemia Chief Complaint 6 M FU Reason for Visit Essential (primary) hypertension History of coronary artery stent placement Hyperlipidemia Chief Complaint cp NECK AND SHOULDER STRAIN RX HERE flank pain KIDNEY STONE, PERICARDIAL EFFUSION pain KIDNEY STONE, PERICARDIAL EFFUSION KIDNEY STONE, PERICARDIAL EFFUSION KIDNEY STONE, PERICARDIAL EFFUSION Reason for Visit DEENA (acute kidney in jury) Pericardial effusion Pleural effusion Ureterolithiasis Chief Complaint cp flank pain KIDNEY STONE, PERICARDIAL EFFUSION pain KIDNEY STONE, PERICARDIAL EFFUSION KIDNEY STONE, PERICARDIAL EFFUSION KIDNEY STONE, PERICARDIAL EFFUSION NECK AND SHOULDER STRAIN RX HERE Reason for Visit Pericardial effusion Pleural effusion DEENA (acute kidney injury) Ureterolithiasis Chief Complaint cp flank pain KIDNEY STONE, PERICARDIAL EFFUSION pain KIDNEY STONE, PERICARDIAL EFFUSION KIDNEY STONE, PERICARDIAL EFFUSION KIDNEY STONE, PERICARDIAL EFFUSION NECK AND SHOULDER STRAIN RX HERE ABD PAIN Reason for Visit Pericardial effusion Pleural effusion DEENA (acute kidney injury) Ureterolithiasis Chief Complaint cp flank pain KIDNEY STONE, PERICARDIAL EFFUSION pain KIDNEY STONE, PERICARDIAL EFFUSION KIDNEY STONE, PERICARDIAL EFFUSION KIDNEY STONE, PERICARDIAL EFFUSION NECK AND SHOULDER STRAIN RX HERE ABD PAIN RIGHT URETERAL STONE Reason for Visit Pericardial effusion Pleural effusion DEENA (acute kidney injury) Ureterolithiasis Left renal stone Right ureteral calculus Chief Complaint cp flank pain KIDNEY STONE, PERICARDIAL EFFUSION pain KIDNEY STONE, PERICARDIAL EFFUSION KIDNEY STONE, PERICARDIAL EFFUSION KIDNEY STONE, PERICARDIAL EFFUSION NECK AND SHOULDER STRAIN RX HERE ABD PAIN RIGHT URETERAL STONE Reason for Visit Pericardial effusion Pleural effusion DEENA (acute kidney injury) Ureterolithiasis Bacteremia due to Gram-negative bacteria Left renal stone Right ureteral calculus Chief Complaint cp flank pain KIDNEY STONE, PERICARDIAL EFFUSION pain KIDNEY STONE, PERICARDIAL EFFUSION KIDNEY STONE, PERICARDIAL EFFUSION KIDNEY STONE, PERICARDIAL EFFUSION NECK AND SHOULDER STRAIN RX HERE ABD PAIN RIGHT URETERAL STONE CKD Reason for Visit Pericardial effusion Pleural effusion DEENA (acute kidney injury) Ureterolithiasis Bacteremia due to Gram-negative bacteria Left renal stone Right ureteral calculus Chief Complaint cp flank pain KIDNEY STONE, PERICARDIAL EFFUSION pain KIDNEY STONE, PERICARDIAL EFFUSION KIDNEY STONE, PERICARDIAL EFFUSION KIDNEY STONE, PERICARDIAL EFFUSION NECK AND SHOULDER STRAIN RX HERE ABD PAIN RIGHT URETERAL STONE CKD 2 ORDERING DRS 1 Y FU Reason for Visit Pericardial effusion Pleural effusion DEENA (acute kidney injury) Ureterolithiasis Bacteremia due to Gram-negative bacteria Left renal stone Right ureteral calculus Pericardial effusion Essential (primary) hypertension History of coronary artery stent placement Hyperlipidemia Chief Complaint KIDNEY STONE, PERICA RDIAL EFFUSION KIDNEY STONE, PERICARDIAL EFFUSION KIDNEY STONE, PERICARDIAL EFFUSION KIDNEY STONE, PERICARDIAL EFFUSION NECK AND SHOULDER STRAIN RX HERE ABD PAIN RIGHT URETERAL STONE CKD 2 ORDERING DRS 1 Y FU Presence of coronary angioplasty implant and graft Presence of coronary angioplasty implant and graft Amb Documentation Reason for Visit Pericardial effusion Pleural effusion DEENA (acute kidney injury) Ureterolithiasis Bacteremia due to Gram-negative bacteria Left renal stone Right ureteral calculus Pericardial effusion Essential (primary) hypertension History of coronary artery stent placement Hyperlipidemia Chief Complaint 2 ORDERING DRS 1 Y FU Presence of coronary angioplasty implant and graft Presence of coronary angioplasty implant and graft Amb Documentation Reason for Visit Pericardial effusion Essential (primary) hypertension History of coronary artery stent placement Hyperlipidemia Family History No Family History Records Found Relationship Condition Age at Onset Recorded Date/T bella mother Coronary artery disease Unknown History of coronary artery bypass surgery Unknown father Coronary artery disease Unknown brother Coronary artery disease Unknown Myocardial infarction Unknown Diabetes mellitus Unknown Advance Directives No Advanced Directives Records Found Advance Directive Response Recorded Date/ Time Advance Directives Yes December 28, 020 8:32am Living Will Yes September 23 3:05pm Power of Tram Operator Yes September 23 021 3:05pm Advance Directive Response Recorded Date/ Time Advance Directives Yes December 28 020 7:32am Living Will Yes September 23 2:05pm Power of Tram Operator Yes September 23 021 2:05pm Advance Directive Response Recorded Date/ Time Name of Medical Power of Tram Operator June 07, 2023 4:03pm Name of Medical Power of Tram Operator June 12, 2023 8:13pm Advance Directives Yes December 28, 020 8:32am Living Will Yes June 12, 2023 8:13pm Power of Tram Operator Yes May 8:13pm Advance Directive Response Recorded Date/ Time Name of Medical Power of Tram Operator June 07, 2023 4:03pm Name of Medical Power of Tram Operator June 12, 2023 8:13pm Name of Medical Power of Tram Operator Mariah Arriola , July 07, 2023 2:57pm Advance Directives Yes December 28, 020 8:32am Living Will Yes July 07 2:57pm Power of Tram Operator Yes July 07, 2023 2:57pm Advance Directive Response Recorded Date/ Time Name of Medical Power of Tram Operator June 07, 2023 3:03pm Name of Medical Power of Tram Operator June 12, 2023 7:13pm Name of Medical Power of Tram Operator Mariah Arriola , July 07, 2023 1:57pm Name of Medical Power of Tram Operator MARIAH ARRIOLA - SPOUSE July 21, 2023 10:24am Advance Directives Yes December 28, 020 7:32am Living Will Yes July 21 10:24am Power of Tram Operator Yes July 21, 2023 10:24am Advance Directive Response Recorded Date/ Time Name of Medical Power of Tram Operator June 07, 2023 3:03pm Name of Medical Power of Tram Operator June 12, 2023 7:13pm Name of Medical Power of Tram Operator Mariah Arriola , July 07, 2023 1:57pm Name of Medical Power of Tram Operator Mariah Arriola July 21, 2023 4:24pm Advance Directives Yes December 28, 020 7:32am Living Will Yes July 21 4:24pm Power of Tram Operator Yes July 21, 2023 4:24pm Advance Directive Response Recorded Date/ Time Name of Medical Power of Tram Operator June 12, 2023 7:13pm Name of Medical Power of Tram Operator Mariah Arriola , July 07, 2023 1:57pm Name of Medical Power of Tram Operator Mariah Arriola July 21, 2023 4:24pm Advance Directives Yes December 28, 020 7:32am Living Will Yes July 21 4:24pm Power of Tram Operator Yes July 21, 2023 4:24pm Advance Directive Response Recorded Date/ Time Advance Directives Yes December 28, 2 020 8:32am Living Will Yes July 21 5:24pm Power of Tram Operator Yes July 21, 2023 5:24pm Summary Purpose Additional Source Comments Goals (unrecognized section and content) Goals may be documented in a n alternate sectionGoals may be documented in an alternate sectionGoals may be documented in an alternate sectionGoals may be documented in an alternate sectionGoals may be documented in an alternate sectionGoals may be documented in an alternate sectionGoals may be documented in an alternate section Source Comments (unrecognize d section and content) In the event this informatio n is protected by the Federal Confidentiality of Alcohol and Drug Abuse Patient Records regulations: The Federal rules restrict any use of the information to criminally investigate or prosecute any alcohol or drug abuse patient.[facility] the event this information is protected by the Federal Confidentiality of Alcohol and Drug Abuse Patient Records regulations: The Federal rules restrict any use of the information to criminally investigate or prosecute any alcohol or drug abuse patient.[facility] the event this information is protected by the Federal Confidentiality of Alcohol and Drug Abuse Patient Records regulations: The Federal rules restrict any use of the information to criminally investigate or prosecute any alcohol or drug abuse patient.[facility] the event this information is protected by the Federal Confidentiality of Alcohol and Drug Abuse Patient Records regulations: The Federal rules restrict any use of the information to criminally investigate or prosecute any alcohol or drug abuse patient.[facility] the event this information is protected by the Federal Confidentiality of Alcohol and Drug Abuse Patient Records regulations: The Federal rules restrict any use of the information to criminally investigate or prosecute any alcohol or drug abuse patient.[facility] Reason for Visit (unrecogniz ed section and content) Reason Comments Consult hemorrhoids Reason Comments New Patient Mass Reason Comments Other Please protocol this Cardiac MRI Care Teams (unrecognized sec tion and content) Classified Advertising Clerk Relationship Specialty Start Date End Date Delvis Maldonado DO [address] [place] [address] PCP - General Family Medicine 06/07/22 Classified Advertising Clerk Relationship Specialty Start Date End Date Delvis Maldonado DO [address] [place] [address] PCP - General Family Medicine 06/07/22 Team Status: Active Member Role Status Dates Dr. Delvis Maldonado DO Family Provider Active Dr. Delvis Maldonado DO Primary Care Provider Active Team Status: Inactive Member Role Status Dates Dr. Delvis Maldonado DO Primary Care Provider, Referrin g Provider Active Mike Ta [employer] JOINTER RETURNER, [employer]ENE[employer] JOINTER RETURNER-C Attending Provider Active Team Status: Inactive Member Role Status Dates Dr. Delvis Maldonado DO Primary Care Provider Active Dr. Frida Barber MD Attending Provider, Referring Provider Active Dr. Ruiz Gary MD Other Provider Active Team Status: Inactive Member Role Status Dates Dr. Delvis Maldonado DO Primary Care Prov ider, Attending Provider, Referring Provider Active Team Status: Inactive Member Role Status Dates Dr. Delvis Maldonado DO Primary Care Provider Active Dr. Joseph Mora MD Attending Provider, Referr ing Provider Active Team Status: Inactive Member Role Status Dates Dr. Delvis Maldonado DO Primary Care Provider Active Dr. Frida Barber MD Attending Provider, Referring Provider Active Team Status: Active Member Role Status Dates Dr. Delvis Maldonado DO Primary Care Provider Active Dr. Anuj Alexis MD Emergency Provider Active Dr. Karlos Hernandez DO Attending Provider Active Team Status: Active Member Role Status Dates Dr. Delvis Maldonado DO Primary Care Provider Active Dr. Alla Jaquez MD Attending Provider Active Team Status: Active Member Role Status Dates Dr. Delvis Maldonado DO Primary Care Provider Active Dr. Anju Alexis MD Emergency Provider Active Dr. Karlos Hernandez DO Admit Provider, At tending Provider, Other Provider Active Dr. Joseph Mora MD Other Provider Active Team Status: Inactive Member Role Status Dates Dr. Delvis Maldonado DO Primary Care Provider Active Dr. Anju Alexis MD Attending Provider, Emergency Provider Active Team Status: Active Member Role Status Dates Dr. Delvis Maldonado DO Primary Care Provider Active Dr. Sun Lopez MD Attending Provider, Referring P stephenie Active Team Status: Inactive Member Role Status Dates Dr. Delvis Maldonado DO Primary Care Provider Active Dr. Israel Hagan MD Attending Provider, Emergency Provider Active Team Status: Inactive Member Role Status Dates Dr. Delvis Maldonado DO Primary Care Provider Active Dr. Anju Alexis MD Emergency Provider Active Dr. Karlos Hernandez DO Admit Provider, Attending Provid er Active Dr. Joseph Mora MD Other Provider Active Team Status: Inactive Member Role Status Dates Dr. Delvis Maldonado DO Primary Care Provider Active Dr. Osmany Barrios MD Emergency Provider Active Team Status: Inactive Member Role Status Dates Dr. Delvsi Maldonado DO Primary Care Provider Active Dr. Osmany Barrios MD Attending Provider, Emergency Pro vider Active Team Status: Active Member Role Status Dates Dr. Delvis Maldonado DO Primary Care Provider Active Dr. Josemanuel Roa DO Emergency Provider Active Dr. Joseph Mora MD Admit Provider, Attending Provider Active Classified Advertising Clerk Relationship Specialty Start Date End Date Delvis Maldonado DO [address] [place] [address] PCP - General Family Medicine 06/07/22 Team Status: Inactive Member Role Status Dates Dr. Delvis Maldonado DO Primary Care Provider Active Dr. Josemanuel Roa , DO Emergency Provider Active Dr. Joseph Mora MD Admit Provider, Attending Provider Active Dr. Odilon Liu MD Other Provider Active Team Status: Active Member Role Status Dates Dr. Delvis Maldonado DO Primary Care Provider, Attendin g Provider Active Team Status: Inactive Member Role Status Dates Dr. Delvis Maldonado DO Primary Care Provider, Attendin g Provider Active Team Status: Inactive Member Role Status Dates Dr. Delvis Maldonado DO Primary Care Provider Active Dr. Sun Lopez MD Attending Provider, Referring P rovider Active Team Status: Inactive Member Role Status Dates Dr. Delvis Maldonado DO Primary Care Provider, Referrin g Provider Active Nika Garzon [employer] JOINTER RETURNER, VENE[employer] JOINTER RETURNER-C Attending Provider Active Team Status: Active Member Role Status Dates Dr. Delvis Maldonado DO Primary Care Provider Active Nika Garzon [employer] JOINTER RETURNER, VENE[employer] JOINTER RETURNER-C Referring Provider, Other Provi seth Active Dr. Ruiz Gary MD Attending Provider Active Team Status: Active Member Role Status Dates Dr. Delvis Maldonado DO Primary Care Provider Active Nika Garzon V[employer] JOINTER RETURNER, VENE[employer] JOINTER RETURNER-C Attending Provider Active Team Status: Inactive Member Role Status Dates Dr. Delvis Maldonado DO Primary Care Provider Active Nika Garzon [employer] JOINTER RETURNER, VENEER JOINTER RETURNER-C Attending Provider, Referring P rovider Active Classified Advertising Clerk Relationship Specialty Start Date End Date Delvis Maldonado DO [address] [place] [address] PCP - General Family Medicine 06/07/22 Classified Advertising Clerk Relationship Specialty Start Date End Date Delvis Maldonado DO [address] [address] PCP - General Family Medicine 06/07/22 Team Status: Inactive Member Role Status Dates Dr. Delvis Maldonado DO Primary Care Provider Active Dr. Monisha Yoon DO Attending Provider, Referring P stephenie Active (unrecognized sect ion and content) No Status Records FoundNo Status Records FoundNo Status Records FoundNo Status Records Found INFORMATION SOURCE (unrecogn ized section and content) DATE CREATED AUTHOR 06/21/2022 [facility] DATE CREATED AUTHOR AUTHOR'S ORGANIZ ATION 08/03/2022 [facility] DATE CREATED AUTHOR AUTHOR'S ORGANIZ ATION 10/30/2023 [facility] DATE CREATED AUTHOR AUTHOR'S ORGANIZ ATION 04/14/2025 [facility] FOR RECORDS PERTAINING TO PATIENTS WHO [...] BE BASED ON THE PRIMARY CLINICAL RECORDS. [employer] provides no warranty or guarantee of the accuracy or completeness of information in this document.
[2025-05-03 08:40] LABS: Creatinine, Urine (random) 89.20 mg/dL (39.00-259.00); Microalbumin,Random Urine 50.9 mg/L (<20 mg/L)
[2025-05-03 08:56] LABS: Albumin, Serum 4.2 g/dL (3.4-4.8); Anion Gap 12 (5-15); BUN 37 mg/dL (4-19); BUN/Creat Ratio 14.8 RATIO (10-20); Calcium,Total 9.0 mg/dL (7.6-11.0); Carbon Dioxide 22.0 mmol/L (21.0-32.0); Chloride 106 mmol/L (98-108); Glucose 98 mg/dL (70-99); Potassium 4.4 mmol/L (3.3-5.1)
== END | disposition home or self-care (01) ==
LOC: LAB 06:57
PROVIDERS: PCP Family Medicine; Referring Provider Internal Medicine Nephrology; Visit Provider Internal Medicine Nephrology
DX: E11.22 Type 2 diabetes mellitus with diabetic chronic kidney disease (principal); N18.4 Chronic kidney disease, stage 4 (severe)
CPT/HCPCS: 36415; 80069; 82043; 82570

== ENCOUNTER → 2025-05-11 | Outpatient (CLI) | payer MEDICARE, OTHER, SELFPAY ==
[2025-05-11 13:34] LABS: PSA,Total- Diagnostic 1.68 ng/mL (0.00-4.00)
== END | disposition home or self-care (01) ==
LOC: LAB 11:52
PROVIDERS: PCP Family Medicine; Referring Provider Urology; Visit Provider Urology
DX: R97.20 Elevated prostate specific antigen [PSA] (principal)
CPT/HCPCS: 36415; 84153

== ENCOUNTER → 2025-07-02 | Outpatient (CLI) | payer MEDICARE, OTHER, SELFPAY ==
--- OUTSIDE RECORDS SUMMARY | 2025-07-02 06:45 | XMS RPT_ITS | CCD ---
Author Organization [facility] Care Team Providers Care Electrolysis Needle Operator Name Role Phone Dr. Delvis Maldonado Primary Care Provider [phone] Dr. Delvis Maldonado Referring Provider Dr. Ruiz Gary Attending Provider Delvis Maldonado DO Primary Care Provider CHRIS ORNELAS Attending Unavailable DELVIS MALDONADO Primary Care Unavailable SHERRY GUADARRAMA Attending Unavailable CHRIS ORNELAS Referring Unavailable DELVIS MALDONADO Primary Care Unavailable LATOYA JORDAN Attending Unavail able SHERRY GUADARRAMA Referring Unavailable DELVIS MALDONADO Primary Care Unavailable Dr. Delvis Maldonado Primary Care Provider [phone] Dr. Delvis Maldonado Referring Provider Cely COLLAR BAND CREASER, COLLAR BAND CREASER-Mishel Briones Attending Provider Dr. Delvis Maldonado Primary Care Provider [phone] Dr. Delvis Maldonado Referring Provider Cely COLLAR BAND CREASER, TREMAYNE-Mishel Briones Attending Provider Dr. Delvis Maldonado Primary Care Provider [phone] Dr. Delvis Maldonado Referring Provider [phone] Cely COLLAR BAND CREASER, COLLAR BAND CREASER-C Mike Briones Attending Provider Dr. Delvis Maldonado Primary Care Provider [phone] Dr. Anju Alexis Emergency Provider Dr. Karlos Hernandez Attending Provider Dr. Alla Jaquez Attending Provider Dr. Karlos Hernandez Admit Provider Dr. Karlos Hernandez Other Provider Dr. Joseph Mora Other Provider Dr. Delvis Maldonado Primary Care Provider [phone] Anju Alexis Emergency Provider Dr. Karlos [...] Other Provider Dr. Joseph Mora Other Provider Dr. Delvis Maldonado Referring Provider Duran CASPER, COLLAR BAND CREASER-C Nika Attending Provider Dr. Delvis Maldonado Primary Care Provider [phone] Dr. Anju Alexis Emergency Provider Dr. Karlos Hernandez Attending Provider Dr. Delvis Maldonado Referring Provider Duran COLLAR BAND CREASER, COLLAR BAND CREASER-C Nika Attending Provider Duran CASPER, COLLAR BAND CREASER-C Nika Referring Provider Duran CASPER, COLLAR BAND CREASER-C Nika Other Provider [phone] Dr. Ruiz Gary Attending Provider Dr. Delvis Maldonado Primary Care Provider Dr. Delvis Maldonado Referring Provider Duran COLLAR BAND CREASER, COLLAR BAND CREASER-C Nika Attending Provider Duran COLLAR BAND CREASER, COLLAR BAND CREASER-C Nika Referring Provider Duran COLLAR BAND CREASER, COLLAR BAND CREASER-C Nika Other Provider Dr. Ruiz Gary Attending Provider Claudine DIAZ, Dr. Anthony Primary Care Provider [phone] Sunil ROMERO, Dr. Galicia Attending Provider Sunil ROMERO, Dr. Galicia Referring Provider Car DIAZ, Dr. Bearden Attending Provider Car DIAZ, Dr. Bearden Referring Provider Claudine DIAZ, Dr. Anthony Referring Provider Abdirahman ROMERO, Dr. Melchor Attending Provider Claudine DIAZ, Dr. Anthony Primary Care Provider Abby ROMERO, Dr. Joseph Watt Attending Provider Abby ROMERO, Dr. Joseph Watt Referring Provider ClaudineDelvis camejo Referring Unavailable Claudine, Delvis Primary Care Unavailable Ruiz Gary Attending Unavailable ClaudineDelvis Referring Unavailable Claudine, Delvis Primary Care Unavailable Roof COLLAR BAND CREASER, Mike H Attending Unavailable Claudine, Delvis Primary Care Unavailable Car, Monisha Referring Unavailable Monisha Yoon Attending Unavailable Claudine, Delvis Primary Care Unavailable Roof COLLAR BAND CREASER, Mike H Referring Unavailable Roof COLLAR BAND CREASER, Mike H Attending Unavailable Claudine, Delvis Primary Care Unavailable Car, Monisha Referring Unavailable Dima Yoonine Attending Unavailable Claudine, Delvis Primary Care Unavailable Frida Barber Referring Unavailable JohnlanFrida bellamy Attending Unavailable Claudine, Delvis Primary Care Unavailable Joseph Mora Referring Unavailable Joseph Mora Attending Unavailable Car, Monisha Referring Unavailable Car, Monisha Attending Unavailable Claudine, Delvis Primary Care Unavailable Claudine, Delvis Primary Care Unavailable Frida Barber Referring Unavailable Frida Barber Attending Unavailable Marcos Hightower MD Unavailable NONE, NONE Unavailable Unavailable Delvis Maldonado DO Alex Unavailable Allergies Allergy Classification Reported Allergen(s) Allergy Type Date of Onset Reaction(s) Facility (20 sources) rosuvastatin Drug Allergy 2 Myalgias and joint pain [facility] (1 source) rosuvastatin Drug Allergy 5 [facility] Repository Medications Current Medications Medication Drug Class(es) Dates Sig (Normalized) Sig (Original) finasteride 5 mg oral tablet (12 sources) 5-alpha Reductase Inhibitor Start: 3 take 1 tablet by mouth once daily Finasteride (Proscar) 5 mg tablet Active 5 mg PO DAILY 90 3 July 24, 2023 1:00am FT TURMERIC COMPLEX (TURMERIC) 500 MG CAPS (1 source) take 1 capsule by mouth once daily turmeric 450 mg-turmeric root extract 50 mg capsule 1 capsule by mouth once a day active Kylah Oconnell AT [facility] hydroxychloroquine sulfate 200 mg oral tablet (20 sources) Antimalarial, Antirheumatic Agent Start: 0 End: 1 take 1 tablet by mouth at bedtime Hydroxychloroquine 200 mg tablet Active 200 mg PO AT BEDTIME May 26, 2021 1:07pm RHEUMATOID ARTHRITIS Start: 06-02-2020 End: 05-26-2021 take 1 tablet by mouth twice daily Hydroxychloroquine 200 mg tablet Discontinued 200 mg PO TWICE A DAY June 02, 2020 12:00am May 26, 2021 1:08pm Comment on above: Take 200 mg by mouth once daily. losartan potassium 25 mg oral tablet (3 sources) Angiotensin 2 Receptor Danielle Start: 5 take 1 tablet by mouth once daily Losartan 25 mg tablet Active 25 mg PO daily May 11, 2025 12:00am mecobalamin 1 mg chewable tablet (20 sources) Start: 2 take 1 tablet by mouth once daily Mecobalamin (Vitamin B12) 1,000 mcg tablet,chewable Active 1000 ug PO DAILY August 15, 2022 1:00am SUPPLEMENT Start: 08-15-2022 take 1000 ug by mout [...] amount to anal opening twice a day. RA VITAMIN D-3 (CHOLECALCIFEROL) 50 MCG (2000 UT) CAPS (1 source) take 1 capsule by mouth once daily Vitamin D3 50 mcg (2,000 unit) capsule 1 capsule by mouth once a day active Kylah Oconnell AT [facility] tamsulosin hydrochloride 0.4 mg oral capsule (20 sources) alpha-Adrenergic Danielle Start: 06-15-2023 End: 09-18-2023 take 1 capsule by mouth at bedtime Tamsulosin (Flomax) 0.4 mg capsule Active 0.4 mg PO AT BEDTIME 90 3 July 24, 2023 1:00am Start: 02-17-2016 End: 11-23-2021 take 1 capsule by mouth once daily Tamsulosin 0.4 mg capsule Discontinued 0.4 mg PO DAILY June 02, 2020 9:35am November 23, 2021 11:47am PROSTATE Start: 02-17-2016 End: 06-02-2020 take 2 capsules by mouth once daily Tamsulosin 0.4 MG capsule Discontinued 0.8 mg PO DAILY October 07, 2017 11:31am June 02, 2020 9:36am PROSTATE Start: 02-17-2016 End: 06-02-2020 take 0.8 mg by mouth once daily Tamsulosin Discontinue d 0.8 MG PO DAILY October 07, 2017 11:31am June 02, 2020 9:36am Completed/Discontinued Medications Medication Drug Class(es) Dates Sig (Normalized) Sig (Original) acetaminophen 325 mg / HYDROcodone bitartrate 5 mg oral tablet (20 sources) Opioid Agonist Start: 05-25-2023 End: 07-21-2023 Hydrocodone-Acetami nophen 5-325 mg tablet Discontinued 1 {tbl} PO EVERY 6 HOURS as needed for Pain June 12, 2023 12:00am July 21, 2023 5:20pm Start: 05-25-2023 End: 07-21-2023 take 1 tablet by mouth every six hours Hydrocodone-Acetaminophen Discontinued 1 TABLET PO EVERY 6 HOURS June 12, 2023 12:00am July 21, 2023 5:20pm Start: 05-25-2023 End: 07-21-2023 Start: 01-26-2020 End: 01-29-2020 Hydrocodone-Acetaminophen 1 TABLET tablet Discontinued 1 {tbl} PO EVERY 6 HOURS NEEDED as needed for Pain 10 3 0 January 26, 2020 January 28, 2020 12:00am January 29, 2020 12:02am Herpes zoster Zoster without complications Start: 01-26-2020 End: 01-29-2020 take 1 tablet by mouth every six hours as needed Hydrocodone-Acetaminophen Discontinued 1 TABLET PO EVERY 6 HOURS NEEDED 10 3 January 26, 2020 January 29, 2020 12:02am Start: 01-26-2020 End: 01-29-2020 Start: 12-26-2019 End: 12-31-2019 Hydrocodone-Acetaminophen 1 EACH tablet Discontinued 1 NMA PO EVERY 4 HOURS NEEDED as needed for Pain Score 1-10/10 20 5 0 December 26, 2019 December 30, 2019 12:00am December 31, 2019 12:01am Personal history of urinary calculi Start: 12-26-2019 End: 12-31-2019 Hydrocodone-Acetaminophen Di scontinued 1 EACH PO EVERY 4 HOURS NEEDED 20 5 December 26, 2019 December 31, 2019 12:01am Start: 12-26-2019 End: 12-31-2019 Start: 03-22-2019 End: 03-29-2019 Hydrocodone-Acetaminophen 1 TABLET tablet Discontinued 1 {tbl} PO EVERY 4 HOURS NEEDED as needed for Pain 15 2 0 March 22, 2019 March 23, 2019 12:00am March 29, 2019 12:09am Calculus of kidney Calculus of kidney Start: 03-22-2019 End: 03-29-2019 take 1 tablet by mouth every four hours as needed Hydrocodone-Acetaminophen Discontinued 1 TABLET PO EVERY 4 HOURS NEEDED 15 2 March 22, 2019 March 29, 2019 12:09am Start: 03-22-2019 End: 03-29-2019 acetaminophen 325 mg / oxyCODONE hydrochloride 5 mg oral tablet (20 sources) Opioid Agonist Start: 06-07-2023 End: 07-21-2023 Oxycodone-Acetaminophen 5-32 5 mg tablet Discontinued 1 {tbl} PO EVERY 6 HOURS as needed for PAIN June 12, 2023 12:00am July 21, 2023 5:21pm Start: 06-07-2023 End: 07-21-2023 take 1 tablet [...] 81 mg tablet,delayed release (DR/EC) Discontinued 81 mg PO daily 90 3 May 26, 2021 12:00am June 12, 2023 9:53am take 1 capsule by mouth once esther ly aspirin 81 mg capsule 1 capsule by mouth once a day active Kylah Oconnell AT [facility] Comment on above: Take 81 mg by mouth once daily. cholecalciferol 0.05 mg oral capsule (20 sources) Vitamin D Start: 05-04-20 End: 08-15-20 take 1 capsule by mouth once daily Cholecalciferol (Vitamin D3) 50 mcg (2,000 unit) capsule Active 4000 U PO DAILY August 15, 2022 11:17am SUPPLEMENT Start: 05-04-2019 End: 08-15-2022 take 1 capsule by mouth once daily Cholecalciferol (Vitamin D3) 2,000 UNIT capsule Discontinued 2000 U PO DAILY December 25, 2019 1:27pm August 15, 2022 11:17am SUPPLEMENT cholecalciferol, vitamin D3, (VITAMIN D3 ORAL) (5 sources) cholecalciferol, vitamin D3, (VITAMIN D3 ORAL) Take by mouth once daily. 0 Active Comment on above: Take by mouth once d aily. ciprofloxacin 500 mg oral tablet (20 sources) Quinolone Antimicrobial Start: 023 End: take 1 tablet by mouth twice daily Ciprofloxacin Hcl (Cipro) 500 mg tablet Discontinued 500 mg PO TWICE A DAY 14 0 July 24, 2023 1:00am September 18, 2023 9:27am Start: 12-26-2019 End: 06-02-2020 take 1 tablet by mouth twice daily Ciprofloxacin Hcl 500 MG tablet Discontinued 500 mg PO TWICE A DAY 6 0 December 26, 2019 12:00am June 02, 2020 9:36am Start: 03-13-2019 End: 11-12-2019 take 1 tablet by mouth twice daily Ciprofloxacin Hcl 500 MG tablet Discontinued 500 mg PO TWICE A DAY 14 0 March 13, 2019 12:00am November 12, 2019 12:18pm ezetimibe 10 mg oral tablet (20 sources) Dietary Cholesterol Absorption Inhibitor Start: 11-23-2021 End: 07-25-2022 take 1 tablet by mouth once daily Ezetimibe (Zetia) 10 mg tablet Discontinued 10 mg PO DAILY 90 3 November 23, 2021 1:00am July 25, 2022 10:54am Start: 11-12-2019 End: 10-16-2021 take 1 tablet by mouth at bedtime Ezetimibe 10 MG tablet Discontinued 10 mg PO AT BEDTIME December 25, 2019 1:25pm October 16, 2021 3:06pm CHOLESTEROL On Hold: 05/26/2021 folic acid 1 mg oral tablet (20 sources) Start: 10-07-2017 End: 11-12-2019 take 1 tablet by mouth once daily Folic Acid 1 mg tablet Discontinued 1 mg PO daily October 07, 2017 1:00am November 12, 2019 12:18pm 24 hr hydroCHLOROthiazide 12.5 mg / metoprolol succinate 25 mg extended release oral tablet (18 sources) Thiazide Diuretic, beta-Adrenergi c Danielle Start: 02-17-2016 End: 10-07-2017 Metoprolol Gonzalez-Hydrochlorothia z Discontinued 25 MG February 17, 2016 12:00am October 07, 2017 9:58am Start: 02-17-2016 End: 10-07-2017 levothyroxine sodium 0.05 mg oral tablet (20 sources) l-Thyroxine Start: 12-25-2019 End: 10-16-2021 take 1 tablet by mouth once daily Levothyroxine 50 MCG tablet Discontinued 50 ug PO DAILY December 25, 2019 12:00am October 16, 2021 3:06pm THYROID metFORMIN hydrochloride 850 mg oral tablet (20 sources) Biguanide Start: 09-23-2020 End: 05-26-2021 take 2 tablets by mouth once daily Metformin 850 MG tablet Discontinued 1700 mg PO DAILY September 23, 2020 1:00am May 26, 2021 1:08pm Start: 09-23-2020 End: 05-26-2021 take 1 tablet by mouth at bedtime Metformin 850 MG tablet Discontinued 850 mg PO AT BEDTIME September 23, 2020 1:00am May 26, 2021 1:08pm Start: 09-23-2020 End: 05-26-2021 take 1700 mg by mouth once daily Metformin Discontinued 1700 MG PO DAILY September 23, 2020 1:00am May 26, 2021 1:08pm Start: 12-25-2019 End: 08-24-2020 take 1 tablet by mouth at bedtime Metformin 850 MG tablet Discontinued 850 mg PO AT BEDTIME December 25, 2019 12:00am August 24, 2020 9:54am DM Start: 12-25-2019 End: 08-24-2020 Start: 02-17-2016 End: 10-07-2017 take 1 tablet by mouth in the evening Metformin 850 mg tablet Discontinued 0 PO .COMPLEX October 02, 2017 1:00am October 07, 2017 11:32am 850mg (2 tabs) PO 1 tab in the AM & 1 tab in the PM Start: 02-17-2016 End: 10-07-2017 take 1 tablet by mouth in the evening Metformin Discontinued 0 PO .COMPLEX October 02, 2017 1:00am October 07, 2017 11:32am 850mg (2 tabs) PO 1 tab in the AM & 1 tab in the PM 24 hr metoprolol succinate 25 mg extended release oral tablet (20 sources) beta-Adrenergic Danielle Start: 10-07-2017 End: 06-12-2023 Metoprolol Succinate 25 mg tablet extended release 24 hr Discontinued 0 .ROUTE .COMPLEX 45 3 July 13, 2022 8:34am June 12, 2023 9:53am TAKE ONE-HALF (1/2) TABLET DAILY FOR BLOOD PRESSURE Start: 10-07-2017 End: 05-11-2025 take 1 tablet by mouth once daily Metoprolol Succinate 25 mg tablet extended release 24 hr Discontinued 25 mg PO DAILY 90 3 August 27, 2024 10:39am May 11, 2025 9:15am for blood pressure Start: 10-07-2017 End: 07-13-2022 take 12.5 mg by mouth once daily Metoprolol Succinate Discontinued 12.5 MG PO DAILY 4 October 17, 2021 11:03am July 13, 2022 8:34am Comment on above: Take 12.5 mg by mout h once daily. Metoprolol Gonzalez-Hydrochlorothiaz 1 EACH tablet extended release 24 hr (3 sources) Start: 6 End: 8 Metoprolol Gonzalez-Hydrochlorothiaz 1 EACH tablet extended release 24 hr Discontinued 25 mg February 17, 2016 12:00am October 07, 2017 9:58am naproxen 500 mg oral tablet (20 sources) Nonsteroidal Anti-inflammatory Drug Start: 9 End: 0 take 1 tablet by mouth twice daily as needed Naproxen 500 MG tablet Discontinued 500 mg PO TWICE DAILY NEEDED March 22, 2019 12:00am November 12, 2019 12:19pm predniSONE 20 mg oral tablet (20 sources) Start: 0 End: 0 take 2 tablets by mouth once daily at mealtime Prednisone 20 MG tablet Discontinued 40 mg PO DAILY January 26, 2020 12:00am June 02, 2020 9:36am With food Start: 01-26-2020 End: 06-02-2020 take 40 mg by mouth once daily at mealtime Prednisone Discontinued 40 MG PO DAILY January 26, 2020 12:00am June 02, 2020 9:36am With food rosuvastatin calcium 10 mg oral tablet (20 sources) HMG-CoA Reductase Inhibitor Start: 02-17-2016 End: 06-15-2019 take 1 tablet by mouth at bedtime Rosuvastatin 10 mg tablet Discontinued 10 mg PO AT BEDTIME 90 3 May 12, 2018 5:32pm June 15, 2019 10:17am Start: 02-17-2016 End: 06-15-2019 ticagrelor 90 mg oral tablet (20 sources) Start: 02-17-2016 End: 05-26-2021 take 1 tablet by mouth twice daily Ticagrelor 90 mg tablet Discontinued 90 mg PO TWICE A DAY 180 3 April 27, 2021 2:01pm May 26, 2021 1:27pm BLOOD THINNER [id number]- OREG-CAPRYL ORAL (5 sources) [id number]-[id number] VE -OREG-CAPRYL ORAL Take by mouth once daily. 0 Active Comment on above: Take by mouth once d aily. valACYclovir 1000 mg oral tablet (20 sources) Herpesvirus Nucleoside Analog DNA Polymerase Inhibitor, Herpes Simplex Virus Nucleoside Analog DNA Polymerase Inhibitor, Herpes Zoster Virus Nucleoside Analog DNA Polymerase Inhibitor Start: 01-26-2020 End: 06-02-2020 take 1 tablet by mouth three times daily Valacyclovir 1,000 MG tablet Discontinued 1000 mg PO THREE TIMES A DAY 21 0 January 26, 2020 12:00am June 02, 2020 9:35am Problems Active Problems Problem Classification Problem Date Documented Date Episodic/Chronic Abdominal pain (20 sources) Right upper quadrant pain; Translations: [Right upper quadrant pain] 05-22-2020 Episodic Acute and unspecified renal failure (20 sources) Injury of kidney; Translations: [Acute kidney failure, unspecified] 06-12-2023 Episodic Anal and rectal conditions (5 sources) Anorectal pain; Translations: [Other specified diseases of anus and rectum] Onset: 07-31-2022 Episodic Aortic; peripheral; and visceral artery aneurysms (20 sources) Aortic root dilatation; Translations: [Thoracic aortic ectasia] 06-02-2020 Chronic Bacterial infection; unspecified site (18 sources) Bacteremia caused by Gram-negative bacteria; Translations: [Bacteremia] 07-23-2023 Episodic Calculus of urinary tract (20 sources) Ureteric colic; Translations: [Unspecified renal colic] Onset: 07-17-2023 06-15-2023 Episodic Comment on above: 1 surgery in , 2 surgeries in July 2023 Chronic kidney disease (20 sources) Chronic kidney disease; Translations: [Chronic kidney disease, unspecified] 09-26-2020 Chronic Coronary atherosclerosis and other heart disease (20 sources) History of non-ST segment elevation myocardial infarction; Translations: [Old myocardial infarction] Onset: 12-16-2015 11-22-2021 Chronic Comment on above: 12/2015 Diabetes mellitus with complications (1 source) Type 2 diabetes mellitus with diabetic chronic kidney disease; Translations: [Type 2 diabetes mellitus with diabetic chronic kidney disease] Onset: 05-07-2025 Chronic Disorders of lipid metabolism (20 sources) Hyperlipidemia; Translations: [Hyperlipidemia, unspecified] Onset: 10-19-2024 Chronic Essential hypertension (20 sources) Essential hypertension; Translations: [Essential (primary) hypertension] Chronic Genitourinary symptoms and ill-defined conditions (13 sources) History of renal insufficiency; Translations: [Personal history of other diseases of urinary system] 07-07-2023 Episodic Nonspecific chest pain (15 sources) Chest wall pain; Translations: [Other chest pain] 06-02-2023 Episodic Osteoarthritis (4 sources) Unilateral primary osteoarthritis of first carpometacarpal joint, right hand; Translations: [Osteoarthrosis, localized, primary, hand] Onset: 05-27-2025 05-27-2025 Chronic Other screening for suspected conditions (not mental disorders or infectious disease) (1 source) Elevated prostate specific antigen [PSA]; Translations: [Elevated prostate specific antigen [PSA]] Onset: 05-21-2025 Episodic Suzie-; endo-; and myocarditis; cardiomyopathy (except that caused by tuberculosis or sexually transmitted disease) (20 sources) Pericardial effusion; Translations: [Pericardial effusion] 06-12-2023 Episodic Comment on above: Moderate per echo Pleurisy; pneumothorax; pulmonary collapse (20 sources) Pleural [...] Test Name Value Interpretation Reference Range Facility Relevant diagnostic tests/la boratory data Narrativeon 05-27-2025 Fall risk assessment no ADAM [place] Work Phone: MEDS REVIEW Documentation of cur rent medications (procedure) [employer] Work Phone: MEDS REVIEWD Medications reviewed with changes [employer] Work Phone: Cardiology Visit Reporton Cardiology Visit Report [facility] [address] [place] [address] OFFICE VISIT Date of Service: 05/11/25 MR#: [id number] Acct: [id number] Name: JOHN ARRIOLA Rep #: [id number] : 1945 Provider: Dr. Ruiz Gary MD Age/Sex: 79/M Location: [facility] Status: Signed HPI HPI History of Present Illness Details: This is a 79-year-old nondiabetic male who presents to the office today for a cardiovascular outpatient follow-up. He has a history of hypertension, hypercholesterolemia, coronary artery disease status post angioplasty and stenting to the mid LAD and left circumflex in August 2010 at an outside facility in [place]. Patient returned in November 2015 underwent a stress test which was negative for inducible ischemia by myocardial perfusion imaging, but had some subtle inferior ST segment changes. Subsequent to that on 12/25/15 the patient presented to an outside facility in [place] with substernal chest pain was found to [...] Intake Vital Signs 03/24/24 08:43 09/30/24 10:05 05/11/25 09:07 Height 5 ft 8.9 in 5 ft 9 in 5 ft 9 in Weight: 190 lb 191 lb BMI 28.0 28.2 BP 110/75 124/77 H Blood Pressure Location Lt brachial Lt brachial Position Sitting Sitting Respiration 16 16 Pulse 76 91 Pulse Source NIBP Monitor Intake Visit Reasons: 1 y fu Piano Mover Required: No Accompanied by: Self Is patient in pain?: No Allergies rosuvastatin (From Crestor) Adverse Reaction (Severe, Verified 05/11/25 09:09) Myalgias and joint pain Medications ???Medication ???Instructions ???Recorded ???Confirmed ???Type hydroxychloroquine 200 mg tablet 200 mg PO QHS RHEUMATOID ARTHRITIS 05/26/21 05/11/25 History cholecalciferol (vitamin D3) 50 4,000 unit PO DAILY SUPPLEMENT 05/11/25 History mcg (2,000 unit) capsule mecobalamin (vitamin B12) 1,000 1,000 mcg PO DAILY SUPPLEMENT 07/1905/11/25 History mcg chewable tablet aspirin 81 mg tablet,delayed 81 mg PO QHS HEART [facility] 06/12/23 05/11/25 History release (Adult Aspirin Regimen) finasteride 5 mg tablet (Proscar) 5 mg PO DAILY #90 tabs 07/24/23 0 05/11/25 Rx tamsulosin 0.4 mg capsule (Flomax) 0.4 mg PO QHS #90 caps 07/24/23 05/11/25 Rx losartan 25 mg tablet 25 mg PO QDAY 05/11/25 05/11/25 Hi story Have you fallen in the past year?: No [facility] Medical History DEENA (acute kidney injury) Arthritis Atherosclerosis of [place] coronary artery of [place] heart without angina pectoris BPH (benign prostatic hyperplasia) Calculus of proximal right ureter Chronic kidney disease (CKD) Dilated aortic root Essential (primary) hypertension History of non-ST elevation myocardial infarction (NSTEMI) (12/2015) Hyperlipidemia Hypothyroidism Mass of anus Obstructive sleep apnea Plantar fasciitis Tubular adenoma of colon (09/26/20) Type 2 diabetes mellitus without complications Surgical History History of colonoscopy (2007) History of colonoscopy (09/26/20) History of coronary artery stent placement (12/25/15) History of esophagogastroduodenoscopy (EGD) (2005) History of hemorrhoidectomy History of left heart catheterization (12/2015) History of nasal septoplasty History of ureter stent (12/2019) Kidney stones (07/2023) Family History (Reviewed more content not included)... Normal [facility] PSA,Total- [employer] 04-17 PSA, DIAGNOSTIC 1.68 ng/mL Normal 0.00-4.00 [facility] Comment on above: Result Comment: This test was performed using the [employer] tPSA method. Measured values of a patient??sample can vary depending on the testing procedure used. PSA values determined on patient samples by different testing procedures cannot be used interchangeably. If there is a change in PSA assays while monitoring therapy, sequential testing should be performed to confirm baseline values. Performed By: #### L [phone] ####[facility] [id number] [place], [address] Anion gap in Serum or Plasma Ordered By: Monisha Yoon on 05-03-2025 Anion gap [Moles/Vol] 12 mmol/L 5- [facility] BUN/creatinine ratioOrdered By: Monisha Yoon on 05-03-2025 Urea nitrogen/Creatinine [Mass ratio] 14.8 mg/mg - [facility] Carbon dioxide, total [Moles /volume] in Central venous bloodOrdered By: Monisha Yoon on 05-03-2025 CO2 [Moles/Vol] 22.0 mmol/L 21.0-32.0 [facility] Chloride assayOrdered By: Viky Yoon on 05-03-2025 Chloride [Moles/Vol] 106 mmol/L 98-108 [facility] Glomerular filtration rate ( GFR) estimation/1.73 sq m using serum, plasma, or whole bOrdered By: Monisha Yoon on 05-03-2025 GFR/1.73 sq M.predicted among non-blacks MDRD (S/P/Bld) [Vol rate/Area] 26 mL/min/{1.73_m2} Low >60 [facility] Comment on above: mL/min/1.73m2 CKD-EP I Creatinine Equation (2020) Microalb:Creat Ratio,Random URon 05-03-2025 Creatinine [Mass/Vol] 89.20 mg/dL Normal 39.00- 259. 00 [facility] Comment on above: Performed By: #### L 500.3600, L502.0250 ####[facility] [address] [place], [address] MALB:CREAT 57.1 mg/g CRE High <30 mg/g CRE [facility] Comment on above: Performed By: #### L 500.3600, L502.0250 ####[facility] [address] [place], [address] MICROALBUMIN,UR 50.9 mg/L Normal <20 mg/L [facility] Comment on above: Performed By: #### L 500.3600, L502.0250 ####[facility] [address] [place], [address] Potassium measurement (mass/ volume)Ordered By: Monisha Yoon on 05-03-2025 Potassium (Unsp spec) [Mass/Vol] 4.4 mmol/L 3.3-5.1 [facility] Comment on above: Hemolysis present, R esults could be affected. Random urine creatinine noam urement (mass/volume)Ordered By: Monisha Yoon on 05-03-2025 Creatinine Unsp time (U) [Mass/Vol] 89.20 mg/dL 39.00-259. 00 [facility] Renal Profileon 05-03-2025 Albumin [Mass/Vol] 4.2 g/dL Normal 3.4-4.8 [facility] Comment on above: Performed By: #### L 500.3600, L502.0250 ####[facility] [address] [place], [address] BUN/CRE 14.8 RATIO Normal 10-20 [facility] Comment on above: Performed By: #### L 500.3600, L502.0250 ####[facility] [address] [place], [address] Calcium [Mass/Vol] 9.0 mg/dL Normal 7.6-11.0 [facility] Comment on above: Performed By: #### L 500.3600, L502.0250 ####[facility] [address] [place], [address] Chloride [Moles/Vol] 106 mmol/L Normal 98-108 [facility] Comment on above: Performed By: #### L 500.3600, L502.0250 ####[facility] [address] [place], [address] CO2 [Moles/Vol] 22.0 mmol/L Normal 21.0-32.0 [facility] Comment on above: Performed By: #### L 500.3600, L502.0250 ####[facility] [address] [place], [address] Creatinine [Mass/Vol] 2.47 mg/dL High 0.70-1.20 [facility] Comment on above: Performed By: #### L 500.3600, L502.0250 ####[facility] [address] [place], [address] GAP 12 Normal 5-15 [facility] Comment on above: Performed By: #### L 500.3600, L502.0250 ####[facility] [address] [place], [address] GFR/1.73 sq M.predicted among non-blacks MDRD (S/P/Bld) [Vol rate/Area] 26 mL/min/{1.73_m2} Low >60 [facility] Comment on above: Result Comment: mL/m in/1.73m2 CKD-EPI Creatinine Equation (2020) Performed By: #### L 500.3600, L502.0250 ####[facility] [address] [place], [address] Glucose [Mass/Vol] 98 mg/dL Normal 70-99 [facility] Comment on above: Performed By: #### L 500.3600, L502.0250 ####[facility] [address] [place], [address] Potassium [Moles/Vol] 4.4 mmol/L Normal 3.3-5.1 [facility] Comment on above: Result Comment: Hemo lysis present, Results??could be affected. ?? Performed By: #### L 500.3600, L502.0250 ####[facility] [address] [place], [address] Sodium [Moles/Vol] 140 mmol/L Normal 133-145 [facility] Comment on above: Performed By: #### L 500.3600, L502.0250 ####[facility] [address] [place], [address] Urea nitrogen [Mass/Vol] 37 mg/dL High 4-19 [facility] Comment on above: Performed By: #### L 500.3600, L502.0250 ####[facility] [address] [place], [address] Serum creatinine measurement (mass/volume)Ordered By: Monisha Yoon on 05-03-2025 Creatinine [Mass/Vol] 2.47 mg/dL High 0.70-1.20 [facility] Serum glucose measurement (m ass/volume)Ordered By: Monisha Yoon on 05-03-2025 Glucose [Mass/Vol] 98 mg/dL 70-99 [facility] Serum or plasma albumin noam urement (mass/volume)Ordered By: Monisha Yoon on 05-03-2025 Albumin [Mass/Vol] 4.2 g/dL 3.4-4.8 [facility] Serum or plasma calcium noam urement (mass/volume)Ordered By: Monisha Yoon on 05-03-2025 Calcium [Mass/Vol] 9.0 mg/dL 7.6-11.0 [facility] Serum or plasma urea nitroge n measurement (mass/volume)Ordered By: Monisha Yoon on 05-03-2025 Urea nitrogen [Mass/Vol] 37 mg/dL High 4-19 [facility] Sodium levelOrdered By: Prosper Yoon on 05-03-2025 Sodium [Moles/Vol] 140 mmol/L 133-145 [facility] Urine albumin measurement wi detection limit of 20 mg/L or less (mass/volume)Ordered By: Monisha Yoon on 05-03-2025 Albumin DL <= 20 mg/L (U) [Mass/Vol] 50.9 mg/L <20 mg/L [facility] Microalb:Creat Ratio,Random URon 03-05-2025 MALB:CREAT 119.4 mg/g CRE Normal [facility] Comment on above: Result Comment: AMENDED REPORT 03/05/25 0743 MALB:CREAT previously reported as: 1194.4 mg/g CRE Performed By: #### L 100.0500, L502.0250, L500.3600, L509.1000 ####[facility] [address] [place], [address] Absolute lymphocyte countOrd ered By: Frida Barber on 01-12-2025 Lymphocytes Auto (Unsp spec) [#/Vol] 0.63 10*3/uL Low 0.83-4.51 [facility] Absolute neutrophil countOrd ered By: Frida Barber on 01-12-2025 Neutrophils (Bld) [#/Vol] 4.8 10*3/uL 2.0-7.7 [facility] Anion gap in Serum or Plasma Ordered By: Frida Barber on 01-12-2025 Anion gap [Moles/Vol] 12 mmol/L 5-15 [facility] Automated lymphocyte count a s percentage of total leukocytesOrdered By: Frida Barber on 01-12-2025 Lymphocytes/100 WBC Auto (Unsp spec) 10.5 % Low 19-41 [facility] BUN/creatinine ratioOrdered By: Frida Barber on 01-12-2025 Urea nitrogen/Creatinine [Mass ratio] 12.3 mg/mg 10-20 [facility] Basophil percentageOrdered B y: Frida Barber on 01-12-2025 Basophils/100 WBC (Bld) 0.7 % 0-1 [facility] Bilirubin, totalOrdered By: Frida Barber on 01-12-2025 Bilirubin [Mass/Vol] 0.48 mg/dL 0.00-1.30 [facility] CBC W/Diff, Automatedon 12-16 Absolute Lymph 0.63 X10 3/uL Low 0.83-4.51 [facility] Comment on above: Performed By: #### L 500.4050, L100.0100 #### [facility] [address] [place], [address] Absolute Neut 4.8 X10 3/uL Normal 2.0-7.7 [facility] Comment on above: Performed By: #### L 500.4050, L100.0100 #### [facility] [address] [place], [address] Basophils/100 WBC (Bld) 0.7 % Normal 0-1 [facility] Comment on above: Performed By: #### L 500.4050, L100.0100 #### [facility] [address] [place], [address] Eosinophils/100 WBC (Bld) 1.5 % Normal 0-5 [facility] Comment on above: Performed By: #### L 500.4050, L100.0100 #### [facility] [address] [place], [address] Erythrocyte distribution width (RBC) [Ratio] 13.9 % Normal 11.6-14.6 [facility] Comment on above: Performed By: #### L 500.4050, L100.0100 #### [facility] [address] [place], [address] Hematocrit (Bld) [Volume fraction] 45.9 % Normal 40-54 [facility] Comment on above: Performed By: #### L 500.4050, L100.0100 #### [facility] [address] [place], [address] Hemoglobin (Bld) [Mass/Vol] 15.0 g/dL Normal 13.0-16.5 [facility] Comment on above: Performed By: #### L 500.4050, L100.0100 #### [facility] [address] [place], [address] IG% 0.300 Normal 0.0-0.9 [facility] Comment on above: Result Comment: IG% - Immature Granulocytes (promyelocytes, myelocytes and metamyelocytes) > 1% indicates that a LEFT SHIFT is Present. Performed By: #### L 500.4050, L100.0100 #### [facility] [address] [place], [address] Lymphocytes/100 WBC (Bld) 10.5 % Low 19-41 [facility] Comment on above: Performed By: #### L 500.4050, L100.0100 #### [facility] [address] [place], [address] MCH (RBC) [Entitic mass] 29.9 pg Normal 27.0-32.0 [facility] Comment on above: Performed By: #### L 500.4050, L100.0100 #### [facility] [address] [place], [address] MCHC (RBC) [Mass/Vol] 32.7 g/dL Normal 32-36 [facility] Comment on above: Performed By: #### L 500.4050, L100.0100 #### [facility] [address] [place], [address] MCV (RBC) [Entitic vol] 91.6 fL Normal 80-94 [facility] Comment on above: Performed By: #### L 500.4050, L100.0100 #### [facility] [address] [place], [address] Monocytes/100 WBC (Bld) 7.2 % Normal 0-10 [facility] Comment on above: Performed By: #### L 500.4050, L100.0100 #### [facility] [address] [place], [address] Neutrophils/100 WBC (Bld) 79.8 % High 47-70 [facility] Comment on above: Performed By: #### L 500.4050, L100.0100 #### [facility] [address] [place], [address] Nucleated RBC (Bld) [#/Vol] 0 10*3/uL Normal 0-5 [facility] Comment on above: Performed By: #### L 500.4050, L100.0100 #### [facility] [address] [place], [address] Platelet mean volume (Bld) [Entitic vol] 10.5 fL Normal 6.2-12.0 [facility] Comment on above: Performed By: #### L 500.4050, L100.0100 #### [facility] [address] [place], [address] Platelets (Bld) [#/Vol] 162 10*3/uL Normal 150-450 [facility] Comment on above: Performed By: #### L 500.4050, L100.0100 #### [facility] [address] [place], [address] RBC (Bld) [#/Vol] 5.01 10*6/uL Normal 4.6-6.2 [facility] Comment on above: Performed By: #### L 500.4050, L100.0100 #### [facility] [address] [place], [address] RDW SD 46.8 fl High 35.1-43.9 [facility] Comment on above: Performed By: #### L 500.4050, L100.0100 #### [facility] [address] [place], [address] WBC (Bld) [#/Vol] 6.0 10*3/uL Normal 4.4-11.0 [facility] Comment on above: Performed By: #### L 500.4050, L100.0100 #### [facility] [address] [place], [address] Carbon dioxide, total [Moles /volume] in Central venous bloodOrdered By: Frida Barber on 01-12-2025 CO2 [Moles/Vol] 22.4 mmol/L 21.0-32.0 [facility] Chloride assayOrdered By: Raz Barber on 01-12-2025 Chloride [Moles/Vol] 104 mmol/L 98-108 [facility] Comprehensive Metabolic Prof ilon 01-12-2025 Albumin [Mass/Vol] 4.1 g/dL Normal 3.4-4.8 [facility] Comment on above: Performed By: #### L 500.4050, L100.0100 #### [facility] [address] [place], [address] Albumin/Globulin [Mass ratio] 1.5 {ratio} Normal 0.9-2.4 [facility] Comment on above: Performed By: #### L 500.4050, L100.0100 #### [facility] [address] [place], [address] ALK PHOS 66 U/L Normal 40-129 [facility] Comment on above: Performed By: #### L 500.4050, L100.0100 #### [facility] [address] [place], [address] ALT [Catalytic activity/Vol] 14 U/L Normal <=46 [facility] Comment on above: Performed By: #### L 500.4050, L100.0100 #### [facility] [address] [place], [address] AST [Catalytic activity/Vol] 23 U/L Normal <=37 [facility] Comment on above: Performed By: #### L 500.4050, L100.0100 #### [facility] [address] [place], [address] Bilirubin [Mass/Vol] 0.48 mg/dL Normal 0.00-1.30 [facility] Comment on above: Performed By: #### L 500.4050, L100.0100 #### [facility] [address] [place], [address] BUN/CRE 12.3 RATIO Normal 10-20 [facility] Comment on above: Performed By: #### L 500.4050, L100.0100 #### [facility] [address] [place], [address] Calcium [Mass/Vol] 9.0 mg/dL Normal 7.6-11.0 [facility] Comment on above: Performed By: #### L 500.4050, L100.0100 #### [facility] [address] [place], [address] Chloride [Moles/Vol] 104 mmol/L Normal 98-108 [facility] Comment on above: Performed By: #### L 500.4050, L100.0100 #### [facility] [address] [place], [address] CO2 [Moles/Vol] 22.4 mmol/L Normal 21.0-32.0 [facility] Comment on above: Performed By: #### L 500.4050, L100.0100 #### [facility] [address] [place], [address] Creatinine [Mass/Vol] 2.43 mg/dL High 0.70-1.20 [facility] Comment on above: Performed By: #### L 500.4050, L100.0100 #### [facility] [address] [place], [address] GAP 12 Normal 5-15 [facility] Comment on above: Performed By: #### L 500.4050, L100.0100 #### [facility] [address] [place], [address] GFR/1.73 sq M.predicted among non-blacks MDRD (S/P/Bld) [Vol rate/Area] 27 mL/min/{1.73_m2} Low >60 [facility] Comment on above: Result Comment: mL/m in/1.73m2 CKD-EPI Creatinine Equation (2020) Performed By: #### L 500.4050, L100.0100 #### [facility] [address] [place], [address] Globulin (S) [Mass/Vol] 2.7 g/dL Normal 2.2-4.2 [facility] Comment on above: Performed By: #### L 500.4050, L100.0100 #### [facility] [address] [place], [address] Glucose [Mass/Vol] 167 mg/dL High 70-99 [facility] Comment on above: Performed By: #### L 500.4050, L100.0100 #### [facility] [address] [place], [address] Potassium [Moles/Vol] 4.5 mmol/L Normal 3.3-5.1 [facility] Comment on above: Result Comment: Hemo lysis present, Results??could be affected. ?? Performed By: #### L 500.4050, L100.0100 #### [facility] [address] [place], [address] Sodium [Moles/Vol] 139 mmol/L Normal 133-145 [facility] Comment on above: Performed By: #### L 500.4050, L100.0100 #### [facility] [address] [place], [address] T PROT 6.9 g/dL Normal 5.9-8.4 [facility] Comment on above: Performed By: #### L 500.4050, L100.0100 #### [facility] [address] [place], [address] Urea nitrogen [Mass/Vol] 30 mg/dL High 4-19 [facility] Comment on above: Performed By: #### L 500.4050, L100.0100 #### [facility] [address] [place], [address] Eosinophil percentageOrdered By: Frida Barber on 01-12-2025 Eosinophils/100 WBC (Bld) 1.5 % 0-5 [facility] Erythrocyte distribution wid th ratioOrdered By: Frida Barber on 01-12-2025 Erythrocyte distribution width (RBC) [Ratio] 13.9 % 11.6-14.6 [facility] Erythrocyte distribution wid th standard deviationOrdered By: Frida Barber on 01-12-2025 Erythrocyte distribution width (RBC) [Ratio] 46.8 fl High 35.1-43.9 [facility] Glomerular filtration rate ( GFR) estimation/1.73 sq m using serum, plasma, or whole bOrdered By: Frida Barber on 01-12-2025 GFR/1.73 sq M.predicted among non-blacks MDRD (S/P/Bld) [Vol rate/Area] 27 mL/min/{1.73_m2} Low >60 [facility] Comment on above: mL/min/1.73m2 CKD-EP I Creatinine Equation (2020) Hematocrit Auto (Bld) [Volum e fraction]Ordered By: Frida Barber on 01-12-2025 Hematocrit (Bld) [Volume fraction] 45.9 % 40-54 [facility] Hemoglobin measurementOrdere d By: Frida Barber on 01-12-2025 Hemoglobin (Bld) [Mass/Vol] 15.0 g/dL 13.0-16.5 [facility] Immature granulocytes/100 WB C Auto (Bld)Ordered By: Frida Barber on 01-12-2025 Immature granulocytes/100 WBC (Bld) 0.300 % 0.0-0.9 [facility] Comment on above: IG% - Immature Granu locytes (promyelocytes, myelocytes and metamyelocytes) > 1% indicates that a LEFT SHIFT is Present. Laboratory - Chemistry and C hemistry - challengeOrdered By: Frida Barber on 01-12-2025 AST [Catalytic activity/Vol] 23 U/L <38 [facility] MCV (mean corpuscular volume ) determinationOrdered By: Frida Barber on 01-12-2025 MCV (RBC) [Entitic vol] 91.6 fL 80-94 [facility] Mean corpuscular hemoglobin (MCH) determinationOrdered By: Frida Barber on 01-12-2025 MCH (RBC) [Entitic mass] 29.9 pg 27.0-32.0 [facility] Mean corpuscular hemoglobin concentration (MCHC) determinationOrdered By: Frida Barber on 01-12-2025 MCHC (RBC) [Mass/Vol] 32.7 g/dL 32-36 [facility] Mean platelet volume determi nationOrdered By: Frida Barber on 01-12-2025 Platelet mean volume (Bld) [Entitic vol] 10.5 fL 6.2-12.0 [facility] Monocyte percentageOrdered B y: Frida Barber on 01-12-2025 Monocytes/100 WBC (Bld) 7.2 % 0-10 [facility] Neutrophil percentageOrdered By: Frida Barber on 01-12-2025 Neutrophils/100 WBC (Bld) 79.8 % High 47-70 [facility] Nucleated red blood cell per centageOrdered By: Frida Barber on 01-12-2025 Nucleated RBC/100 WBC (Bld) [Ratio] 0 % 0-5 [facility] Platelet countOrdered By: Raz Barber on 01-12-2025 Platelets (Bld) [#/Vol] 162 10*3/uL 150-450 [facility] Potassium measurement (mass/ volume)Ordered By: Frida Barber on 01-12-2025 Potassium (Unsp spec) [Mass/Vol] 4.5 mmol/L 3.3-5.1 [facility] Comment on above: Hemolysis present, R esults could be affected. RBC Auto (Bld) [#/Vol]Ordere d By: Frida Barber on 01-12-2025 RBC (Bld) [#/Vol] 5.01 10*6/uL 4.6-6.2 [facility] Serum creatinine measurement (mass/volume)Ordered By: Frida Barber on 01-12-2025 Creatinine [Mass/Vol] 2.43 mg/dL High 0.70-1.20 [facility] Serum globulin measurementOr dered By: Frida Barber on 01-12-2025 Globulin (S) [Mass/Vol] 2.7 g/dL 2.2-4.2 [facility] Serum glucose measurement (m ass/volume)Ordered By: Frida Barber on 01-12-2025 Glucose [Mass/Vol] 167 mg/dL High 70-99 [facility] Serum or plasma alanine yost otransferase (ALT) measurementOrdered By: Frida Barber on 01-12-2025 ALT [Catalytic activity/Vol] 14 U/L <47 [facility] Serum or plasma albumin noam urement (mass/volume)Ordered By: Frida Barber on 01-12-2025 Albumin [Mass/Vol] 4.1 g/dL 3.4-4.8 [facility] Serum or plasma albumin/glob ulin mass ratioOrdered By: Frida Barber on 01-12-2025 Albumin/Globulin [Mass ratio] 1.5 {ratio} 0.9-2.4 [facility] Serum or plasma alkaline fiorella sphatase measurementOrdered By: Frida Barber on 01-12-2025 ALP [Catalytic activity/Vol] 66 U/L 40-129 [facility] Serum or plasma calcium noam urement (mass/volume)Ordered By: Frida Barber on 01-12-2025 Calcium [Mass/Vol] 9.0 mg/dL 7.6-11.0 [facility] Serum or plasma urea nitroge n measurement (mass/volume)Ordered By: Frida Barber on 01-12-2025 Urea nitrogen [Mass/Vol] 30 mg/dL High 4-19 [facility] Sodium levelOrdered By: Jelena Barber on 01-12-2025 Sodium [Moles/Vol] 139 mmol/L 133-145 [facility] Total proteinOrdered By: Ricky Barber on 01-12-2025 Protein [Mass/Vol] 6.9 g/dL 5.9-8.4 [facility] White blood cell (WBC) count Ordered By: Frida Barber on 01-12-2025 WBC (Bld) [#/Vol] 6.0 10*3/uL 4.4-11.0 [facility] CBC-Complete Blood Cnt No Di ffon 01-02-2025 Erythrocyte distribution width (RBC) [Ratio] 13.8 % Normal 11.6-14.6 [facility] Comment on above: Performed By: #### L 100.0500, L502.0250, L500.3600, L509.1000 #### [facility] [place], [address] Hematocrit (Bld) [Volume fraction] 46.9 % Normal 40-54 [facility] Comment on above: Performed By: #### L 100.0500, L502.0250, L500.3600, L509.1000 #### [facility] [address] [place], [address] Hemoglobin (Bld) [Mass/Vol] 15.3 g/dL Normal 13.0-16.5 [facility] Comment on above: Performed By: #### L 100.0500, L502.0250, L500.3600, L509.1000 #### [facility] [address] [place], [address] MCH (RBC) [Entitic mass] 29.6 pg Normal 27.0-32.0 [facility] Comment on above: Performed By: #### L 100.0500, L502.0250, L500.3600, L509.1000 #### [facility] [address] [place], [address] MCHC (RBC) [Mass/Vol] 32.6 g/dL Normal 32-36 [facility] Comment on above: Performed By: #### L 100.0500, L502.0250, L500.3600, L509.1000 #### [facility] [address] [place], [address] MCV (RBC) [Entitic vol] 90.7 fL Normal 80-94 [facility] Comment on above: Performed By: #### L 100.0500, L502.0250, L500.3600, L509.1000 #### [facility] [address] [place], [address] Platelet mean volume (Bld) [Entitic vol] 10.4 fL Normal 6.2-12.0 [facility] Comment on above: Performed By: #### L 100.0500, L502.0250, L500.3600, L509.1000 #### [facility] [address] [place], [address] Platelets (Bld) [#/Vol] 153 10*3/uL Normal 150-450 [facility] Comment on above: Performed By: #### L 100.0500, L502.0250, L500.3600, L509.1000 #### [facility] [address] [place], [address] RBC (Bld) [#/Vol] 5.17 10*6/uL Normal 4.6-6.2 [facility] Comment on above: Performed By: #### L 100.0500, L502.0250, L500.3600, L509.1000 #### [facility] [address] [place], [address] RDW SD 46.1 fl High 35.1-43.9 [facility] Comment on above: Performed By: #### L 100.0500, L502.0250, L500.3600, L509.1000 #### [facility] [address] [place], [address] WBC (Bld) [#/Vol] 4.3 10*3/uL Low 4.4-11.0 [facility] Comment on above: Performed By: #### L 100.0500, L502.0250, L500.3600, L509.1000 #### [facility] [address] [place], [address] PTHINon 01-02-2025 PTH 91 pg/mL High 11-61 [facility] Comment on above: Performed By: #### L 100.0500, L502.0250, L500.3600, L509.1000 ####[facility] [address] [place], [address] Renal Profileon 01-02-2025 Albumin [Mass/Vol] 4.2 g/dL Normal 3.4-4.8 [facility] Comment on above: Performed By: #### L 100.0500, L502.0250, L500.3600, L509.1000 ####[facility] [address] [place], [address] BUN/CRE 9.2 RATIO Low 10-20 [facility] Comment on above: Performed By: #### L 100.0500, L502.0250, L500.3600, L509.1000 ####[facility] [address] [place], [address] Calcium [Mass/Vol] 9.0 mg/dL Normal 7.6-11.0 [facility] Comment on above: Performed By: #### L 100.0500, L502.0250, L500.3600, L509.1000 ####[facility] [address] [place], [address] Chloride [Moles/Vol] 104 mmol/L Normal 98-108 [facility] Comment on above: Performed By: #### L 100.0500, L502.0250, L500.3600, L509.1000 ####[facility] [address] [place], [address] CO2 [Moles/Vol] 22.6 mmol/L Normal 21.0-32.0 [facility] Comment on above: Performed By: #### L 100.0500, L502.0250, L500.3600, L509.1000 ####[facility] [address] [place], [address] Creatinine [Mass/Vol] 2.37 mg/dL High 0.70-1.20 [facility] Comment on above: Performed By: #### L 100.0500, L502.0250, L500.3600, L509.1000 ####[facility] [address] [place], [address] GAP 11 Normal 5-15 [facility] Comment on above: Performed By: #### L 100.0500, L502.0250, L500.3600, L509.1000 ####[facility] [address] [place], [address] GFR/1.73 sq M.predicted among non-blacks MDRD (S/P/Bld) [Vol rate/Area] 27 mL/min/{1.73_m2} Low >60 [facility] Comment on above: Result Comment: mL/m in/1.73m2 CKD-EPI Creatinine Equation (2020) Performed By: #### L 100.0500, L502.0250, L500.3600, L509.1000 ####[facility] [address] [place], [address] Glucose [Mass/Vol] 127 mg/dL High 70-99 [facility] Comment on above: Performed By: #### L 100.0500, L502.0250, L500.3600, L509.1000 ####[facility] [address] [place], [address] Potassium [Moles/Vol] 4.4 mmol/L Normal 3.3-5.1 [facility] Comment on above: Result Comment: Hemo lysis present, Results??could be affected. ?? Performed By: #### L 100.0500, L502.0250, L500.3600, L509.1000 ####[facility] [address] [place], [address] Sodium [Moles/Vol] 138 mmol/L Normal 133-145 [facility] Comment on above: Performed By: #### L 100.0500, L502.0250, L500.3600, L509.1000 ####[facility] [address] [place], [address] Urea nitrogen [Mass/Vol] 22 mg/dL High 4-19 [facility] Comment on above: Performed By: #### L 100.0500, L502.0250, L500.3600, L509.1000 ####[facility] [address] [place], [address] Cardiology Visit Reporton Cardiology Visit Report [facility] [address] [place] [address] OFFICE VISIT Date of Service: 09/30/24 MR#: [id number] Acct: [id number] Name: JOHN ARRIOLA Rep #: [id number] : 1945 Provider: LIGIA garvey Age/Sex: 78/M Location: [facility] Status: Signed HPI HPI History of Present Illness Details: This is a 78-year-old nondiabetic male who presents to the office today for a cardiovascular outpatient follow-up. He has a history of hypertension, hypercholesterolemia, coronary artery disease status post angioplasty and stenting to the mid LAD and left circumflex in August 2010 at an outside facility in [place]. Patient returned in November 2015 underwent a stress test which was negative for inducible ischemia by myocardial perfusion imaging, but had some subtle inferior ST segment changes. Subsequent to that on 12/25/15 the patient presented to an outside facility in [place] with substernal chest pain was found to [...] NIBP Intake Visit Reasons: 6 M FU Piano Mover Required: No Is patient in pain?: No Allergies rosuvastatin (From [facility]) Adverse Reaction (Severe, Verified 09/30/24 10:10) Myalgias [...] you fallen in the past year?: No [facility] Medical History Mass of anus History of non-ST elevation myocardial infarction (NSTEMI) (12/2015) Tubular adenoma of colon (09/26/20) Chronic kidney disease (CKD) Plantar fasciitis Essential (primary) hypertension Calculus of proximal right ureter DEENA (acute kidney injury) Hypothyroidism Obstructive sleep apnea Dilated aortic root Atherosclerosis of [place] coronary artery of [place] heart without angina pectoris Arthritis BPH (benign [...] (coronary artery (more content not included)... Normal [facility] Lipid Profileon 09-28-2024 Cholesterol [Mass/Vol] 235 mg/dL High 200 [facility] Comment on above: Result Comment: <200 mg/dL Desirable 200-240 mg/dL Borderline >240 mg/dL High Risk Performed By: #### L 500.4100, L500.3400 #### [facility] [address] [place], [address] Cholesterol in HDL [Mass/Vol] 79 mg/dL Normal [facility] Comment on above: Result Comment: The drugs N-Acetylcysteine and Metamizole may falsely depress this assay. Reference Range HDL <40 mg/dL Low HDL Cholesterol HDL >or= 60 mg/dL High HDL Cholesterol Performed By: #### L 500.4100, L500.3400 #### [facility] [address] [place], [address] Cholesterol in LDL [Mass/Vol] 143 mg/dL High 0-130 [facility] Comment on above: Performed By: #### L 500.4100, L500.3400 #### [facility] [address] [place], [address] Cholesterol in VLDL [Mass/Vol] 13 mg/dL Normal 5-40 [facility] Comment on above: Performed By: #### L 500.4100, L500.3400 #### [facility] [address] [place], [address] Triglyceride [Mass/Vol] 66 mg/dL Normal [facility] Comment on above: Result Comment: The drugs N-Acetylcysteine and Metamizole may falsely depress this assay. Serum Triglycerides Reference Interval Normal <150 mg/dL Borderline high 150 - 199 mg/dL High 200 - 499 mg/dL Very High > or = 500 mg/dL Performed By: #### L 500.4100, L500.3400 #### [facility] [address] [place], [address] Liver Profileon 09-28-2024 Albumin [Mass/Vol] 3.9 g/dL Normal 3.2-5.0 [facility] Comment on above: Performed By: #### L 500.4100, L500.3400 #### [facility] [address] [place], [address] ALK P 94 U/L Normal 45-117 [facility] Comment on above: Performed By: #### L 500.4100, L500.3400 #### [facility] [address] [place], [address] ALT [Catalytic activity/Vol] 21 U/L Normal 16-61 [facility] Comment on above: Performed By: #### L 500.4100, L500.3400 #### [facility] [address] [place], [address] AST [Catalytic activity/Vol] 14 U/L Low 15-37 [facility] Comment on above: Performed By: #### L 500.4100, L500.3400 #### [facility] [address] [place], [address] Bilirubin [Mass/Vol] 0.40 mg/dL Normal 0.20-1.00 [facility] Comment on above: Result Comment: For patients on eltrombopag therapy, use of Dimension [place] TBIL is not recommended. Performed By: #### L 500.4100, L500.3400 #### [facility] [address] [place], [address] Bilirubin.direct [Mass/Vol] 0.10 mg/dL Normal 0.00-0.30 [facility] Comment on above: Performed By: #### L 500.4100, L500.3400 #### [facility] [address] [place], [address] Globulin (S) [Mass/Vol] 3.6 g/dL Normal 2.2-4.2 [facility] Comment on above: Performed By: #### L 500.4100, L500.3400 #### [facility] [address] [place], [address] T PROT 7.5 g/dL Normal 6.4-8.2 [facility] Comment on above: Performed By: #### L 500.4100, L500.3400 #### [facility] [address] [place], [address] CBC-Complete Blood Cnt No Di ffon 08-26-2024 Erythrocyte distribution width (RBC) [Ratio] 13.3 % Normal 11.6-14.6 [facility] Comment on above: Order Comment: PER P ANDREIA YOON ORDER Performed By: #### L 100.0500, L500.3600, L502.0250 #### [facility] [address] [place], [address] Hematocrit (Bld) [Volume fraction] 47.3 % Normal 40-54 [facility] Comment on above: Order Comment: PER P ANDREIA YOON ORDER Performed By: #### L 100.0500, L500.3600, L502.0250 #### [facility] [address] [place], [address] Hemoglobin (Bld) [Mass/Vol] 14.9 g/dL Normal 13.0-16.5 [facility] Comment on above: Order Comment: PER P ANDREIA YOON ORDER Performed By: #### L 100.0500, L500.3600, L502.0250 #### [facility] [address] [place], [address] MCH (RBC) [Entitic mass] 29.2 pg Normal 27.0-32.0 [facility] Comment on above: Order Comment: PER P ANDREIA YOON ORDER Performed By: #### L 100.0500, L500.3600, L502.0250 #### [facility] [address] [place], [address] MCHC (RBC) [Mass/Vol] 31.5 g/dL Low 32-36 [facility] Comment on above: Order Comment: PER P ANDREIA YOON ORDER Performed By: #### L 100.0500, L500.3600, L502.0250 #### [facility] [address] [place], [address] MCV (RBC) [Entitic vol] 92.6 fL Normal 80-94 [facility] Comment on above: Order Comment: PER P ANDREIA YOON ORDER Performed By: #### L 100.0500, L500.3600, L502.0250 #### [facility] [address] [place], [address] Platelet mean volume (Bld) [Entitic vol] 10.2 fL Normal 6.2-12.0 [facility] Comment on above: Order Comment: PER P ANDREIA YOON ORDER Performed By: #### L 100.0500, L500.3600, L502.0250 #### [facility] [address] [place], [address] Platelets (Bld) [#/Vol] 171 10*3/uL Normal 150-450 [facility] Comment on above: Order Comment: PER P Rishi-KIM YOON ORDER Performed By: #### L 100.0500, L500.3600, L502.0250 #### [facility] [address] [place], [address] RBC (Bld) [#/Vol] 5.11 10*6/uL Normal 4.6-6.2 [facility] Comment on above: Order Comment: PER P Rishi-KIM YOON ORDER Performed By: #### L 100.0500, L500.3600, L502.0250 #### [facility] [address] [place], [address] RDW SD 45.4 fl High 35.1-43.9 [facility] Comment on above: Order Comment: PER P ANDREIA YOON ORDER Performed By: #### L 100.0500, L500.3600, L502.0250 #### [facility] [address] [place], [address] WBC (Bld) [#/Vol] 5.5 10*3/uL Normal 4.4-11.0 [facility] Comment on above: Order Comment: PER P ANDREIA YOON ORDER Performed By: #### L 100.0500, L500.3600, L502.0250 #### [facility] [address] [place], [address] Microalb:Creat Ratio,Random URon 08-26-2024 Creatinine [Mass/Vol] 55.50 mg/dL Normal NO RAN GE EST. [facility] Comment on above: Order Comment: PER P ANDREIA YOON ORDER Performed By: #### L 100.0500, L500.3600, L502.0250 #### [facility] [address] [place], [address] MALB:CRE 82.5 mg/g CRE High <30 mg/g CRE [facility] Comment on above: Order Comment: PER P T-JUST CAR ORDER Performed By: #### L 100.0500, L500.3600, L502.0250 #### [facility] [address] [place], [address] MICROALBUMIN,UR 45.8 mg/L Normal NO RANGE EST. [facility] Comment on above: Order Comment: PER P T-JUST CAR ORDER Performed By: #### L 100.0500, L500.3600, L502.0250 #### [facility] [address] [place], [address] Renal Profileon 08-26-2024 Albumin [Mass/Vol] 3.8 g/dL Normal 3.2-5.0 [facility] Comment on above: Order Comment: PER P T-JUST CAR ORDER Performed By: #### L 100.0500, L500.3600, L502.0250 #### [facility] [address] [place], [address] BUN/CRE 10.6 RATIO Normal 10-20 [facility] Comment on above: Order Comment: PER P T-JUST CAR ORDER Performed By: #### L 100.0500, L500.3600, L502.0250 #### [facility] [address] [place], [address] CA,Total 9.2 mg/dL Normal 8.5-10.1 [facility] Comment on above: Order Comment: PER P T-JUST CAR ORDER Performed By: #### L 100.0500, L500.3600, L502.0250 #### [facility] [address] [place], [address] Chloride [Moles/Vol] 107 mmol/L Normal 98-107 [facility] Comment on above: Order Comment: PER P T-JUST CAR ORDER Performed By: #### L 100.0500, L500.3600, L502.0250 #### [facility] [address] [place], [address] CO2 [Moles/Vol] 31.0 mmol/L Normal 21.0-32.0 [facility] Comment on above: Order Comment: VIOLA YOON ORDER Performed By: #### L 100.0500, L500.3600, L502.0250 #### [facility] [address] [place], [address] Creatinine [Mass/Vol] 2.46 mg/dL High 0.70-1.30 [facility] Comment on above: Order Comment: PER Ke YOON ORDER Result Comment: The validity of the calculated GFR GFRAA in patients over 70 years has not been determined. Clinical correlation is essential. Performed By: #### L 100.0500, L500.3600, L502.0250 #### [facility] [address] [place], [address] EST GFR - AA 33 mL/min Low >60 [facility] Comment on above: Order Comment: PER Ke YOON ORDER Result Comment: Afri can [place] GFR Calc Performed By: #### L 100.0500, L500.3600, L502.0250 #### [facility] [address] [place], [address] GFR/1.73 sq M.predicted among non-blacks MDRD (S/P/Bld) [Vol rate/Area] 27 mL/min/{1.73_m2} Low >60 [facility] Comment on above: Order Comment: PER Ke YOON ORDER Result Comment: Non- GFR Calc Performed By: #### L 100.0500, L500.3600, L502.0250 #### [facility] [address] [place], [address] Glucose [Mass/Vol] 110 mg/dL High 74-106 [facility] Comment on above: Order Comment: PER Ke YOON ORDER Result Comment: Fast ing Glucose result from 100 to 125 mg/dL suggests IMPAIRED HOMEOSTASIS per A.D.A. criteria. Performed By: #### L 100.0500, L500.3600, L502.0250 #### [facility] [address] [place], [address] Phosphate [Mass/Vol] 3.4 mg/dL Normal 2.5-4.9 [facility] Comment on above: Order Comment: PER P Rishi-KIM YOON ORDER Performed By: #### L 100.0500, L500.3600, L502.0250 #### [facility] [address] [place], [address] Potassium [Moles/Vol] 4.7 mmol/L Normal 3.5-5.1 [facility] Comment on above: Order Comment: PER P ANDREIA YOON ORDER Performed By: #### L 100.0500, L500.3600, L502.0250 #### [facility] [address] [place], [address] Sodium [Moles/Vol] 139 mmol/L Normal 136-145 [facility] Comment on above: Order Comment: PER P ANDREIA YOON ORDER Performed By: #### L 100.0500, L500.3600, L502.0250 #### [facility] [address] [place], [address] Urea nitrogen [Mass/Vol] 26 mg/dL High 7-18 [facility] Comment on above: Order Comment: PER P Rishi-KIM YOON ORDER Performed By: #### L 100.0500, L500.3600, L502.0250 #### [facility] [address] [place], [address] CBC W/Diff, Automatedon 10-3 0-4 Absolute Lymph 1.14 X10 3/uL Normal 0.83-4.51 [facility] Comment on above: Performed By: #### L 500.4050, L100.0100 ####[facility] [address] [place], [address] Absolute Neut 3.0 X10 3/uL Normal 2.0-7.7 [facility] Comment on above: Performed By: #### L 500.4050, L100.0100 ####[facility] [address] [place], [address] Basophils/100 WBC (Bld) 1.2 % High 0-1 [facility] Comment on above: Performed By: #### L 500.4050, L100.0100 ####[facility] [address] [place], [address] Eosinophils/100 WBC (Bld) 7.2 % High 0-5 [facility] Comment on above: Performed By: #### L 500.4050, L100.0100 ####[facility] [address] [place], [address] Erythrocyte distribution width (RBC) [Ratio] 13.0 % Normal 11.6-14.6 [facility] Comment on above: Performed By: #### L 500.4050, L100.0100 ####[facility] [address] [place], [address] Hematocrit (Bld) [Volume fraction] 44.3 % Normal 40-54 [facility] Comment on above: Performed By: #### L 500.4050, L100.0100 ####[facility] [address] [place], [address] Hemoglobin (Bld) [Mass/Vol] 14.4 g/dL Normal 13.0-16.5 [facility] Comment on above: Performed By: #### L 500.4050, L100.0100 ####[facility] [address] [place], [address] IG% 0.600 Normal 0.0-0.9 [facility] Comment on above: Result Comment: IG% - Immature Granulocytes (promyelocytes, myelocytes and metamyelocytes) > 1% indicates that a LEFT SHIFT is Present. Performed By: #### L 500.4050, L100.0100 ####[facility] [address] [place], [address] Lymphocytes/100 WBC (Bld) 22.9 % Normal 19-41 [facility] Comment on above: Performed By: #### L 500.4050, L100.0100 ####[facility] [address] [place], [address] MCH (RBC) [Entitic mass] 29.9 pg Normal 27.0-32.0 [facility] Comment on above: Performed By: #### L 500.4050, L100.0100 ####[facility] [address] [place], [address] MCHC (RBC) [Mass/Vol] 32.5 g/dL Normal 32-36 [facility] Comment on above: Performed By: #### L 500.4050, L100.0100 ####[facility] [address] [place], [address] MCV (RBC) [Entitic vol] 91.9 fL Normal 80-94 [facility] Comment on above: Performed By: #### L 500.4050, L100.0100 ####[facility] [address] [place], [address] Monocytes/100 WBC (Bld) 8.0 % Normal 0-10 [facility] Comment on above: Performed By: #### L 500.4050, L100.0100 ####[facility] [address] [place], [address] Neutrophils/100 WBC (Bld) 60.1 % Normal 47-70 [facility] Comment on above: Performed By: #### L 500.4050, L100.0100 ####[facility] [address] [place], [address] Nucleated RBC (Bld) [#/Vol] 0 10*3/uL Normal 0-5 [facility] Comment on above: Performed By: #### L 500.4050, L100.0100 ####[facility] [address] [place], [address] Platelet mean volume (Bld) [Entitic vol] 10.2 fL Normal 6.2-12.0 [facility] Comment on above: Performed By: #### L 500.4050, L100.0100 ####[facility] [address] [place], [address] Platelets (Bld) [#/Vol] 158 10*3/uL Normal 150-450 [facility] Comment on above: Performed By: #### L 500.4050, L100.0100 ####[facility] [address] [place], [address] RBC (Bld) [#/Vol] 4.82 10*6/uL Normal 4.6-6.2 [facility] Comment on above: Performed By: #### L 500.4050, L100.0100 ####[facility] [address] [place], [address] RDW SD 43.6 fl Normal 35.1-43.9 [facility] Comment on above: Performed By: #### L 500.4050, L100.0100 ####[facility] [address] [place], [address] WBC (Bld) [#/Vol] 5.0 10*3/uL Normal 4.4-11.0 [facility] Comment on above: Performed By: #### L 500.4050, L100.0100 ####[facility] [address] [place], [address] Comprehensive Metabolic Prof ilon 10-30-2024 Albumin [Mass/Vol] 3.6 g/dL Normal 3.2-5.0 [facility] Comment on above: Performed By: #### L 500.4050, L100.0100 ####[facility] [address] [place], [address] Albumin/Globulin [Mass ratio] 1.1 {ratio} Normal 0.9-2.4 [facility] Comment on above: Performed By: #### L 500.4050, L100.0100 ####[facility] [address] [place], [address] ALK P 99 U/L Normal 45-117 [facility] Comment on above: Performed By: #### L 500.4050, L100.0100 ####[facility] [address] [place], [address] ALT [Catalytic activity/Vol] 19 U/L Normal 16-61 [facility] Comment on above: Performed By: #### L 500.4050, L100.0100 ####[facility] [address] [place], [address] AST [Catalytic activity/Vol] 14 U/L Low 15-37 [facility] Comment on above: Performed By: #### L 500.4050, L100.0100 ####[facility] [address] [place], [address] Bilirubin [Mass/Vol] 0.40 mg/dL Normal 0.20-1.00 [facility] Comment on above: Result Comment: For patients on eltrombopag therapy, use of Dimension [place] TBIL is not recommended. Performed By: #### L 500.4050, L100.0100 ####[facility] [address] [place], [address] BUN/CRE 12.0 RATIO Normal 10-20 [facility] Comment on above: Performed By: #### L 500.4050, L100.0100 ####[facility] [address] [place], [address] CA,Total 8.6 mg/dL Normal 8.5-10.1 [facility] Comment on above: Performed By: #### L 500.4050, L100.0100 ####[facility] [address] [place], [address] Chloride [Moles/Vol] 113 mmol/L High 98-107 [facility] Comment on above: Performed By: #### L 500.4050, L100.0100 ####[facility] [address] [place], [address] CO2 [Moles/Vol] 25.0 mmol/L Normal 21.0-32.0 [facility] Comment on above: Performed By: #### L 500.4050, L100.0100 ####[facility] [address] [place], [address] Creatinine [Mass/Vol] 2.58 mg/dL High 0.70-1.30 [facility] Comment on above: Result Comment: The validity of the calculated GFR GFRAA in patients over 70 years has not been determined. Clinical correlation is essential. Performed By: #### L 500.4050, L100.0100 ####[facility] [address] [place], [address] EST GFR - AA 31 mL/min Low >60 [facility] Comment on above: Result Comment: Afri can [place] GFR Calc Performed By: #### L 500.4050, L100.0100 ####[facility] [address] [place], [address] GAP 5 Normal 5-15 [facility] Comment on above: Performed By: #### L 500.4050, L100.0100 ####[facility] [address] [place], [address] GFR/1.73 sq M.predicted among non-blacks MDRD (S/P/Bld) [Vol rate/Area] 26 mL/min/{1.73_m2} Low >60 [facility] Comment on above: Result Comment: Non- GFR Calc Performed By: #### L 500.4050, L100.0100 ####[facility] [address] [place], [address] Globulin (S) [Mass/Vol] 3.2 g/dL Normal 2.2-4.2 [facility] Comment on above: Performed By: #### L 500.4050, L100.0100 ####[facility] [address] [place], [address] Glucose [Mass/Vol] 117 mg/dL High 74-106 [facility] Comment on above: Result Comment: Fast ing Glucose result from 100 to 125 mg/dL suggests IMPAIRED HOMEOSTASIS per A.D.A. criteria. Performed By: #### L 500.4050, L100.0100 ####[facility] [address] [place], [address] Potassium [Moles/Vol] 4.1 mmol/L Normal 3.5-5.1 [facility] Comment on above: Performed By: #### L 500.4050, L100.0100 ####[facility] [address] [place], [address] Sodium [Moles/Vol] 143 mmol/L Normal 136-145 [facility] Comment on above: Performed By: #### L 500.4050, L100.0100 ####[facility] [address] [place], [address] T PROT 6.8 g/dL Normal 6.4-8.2 [facility] Comment on above: Performed By: #### L 500.4050, L100.0100 ####[facility] [facility] [id number], [address] Urea nitrogen [Mass/Vol] 31 mg/dL High 7-18 [facility] Comment on above: Performed By: #### L 500.4050, L100.0100 ####[facility] [id number] [place], [address] Basophil percentageOrdered B y: Monisha Yoon on 12-06-2023 Basophil percentage 3.6 mg/dL 2.5-4.9 [facility] Chloride [Moles/Vol] 110 mmol/L 98-107 [facility] Glucose [Mass/Vol] 111 mg/dL 74-106 [facility] Comment on above: Fasting Glucose resu lt from 100 to 125 mg/dL suggests IMPAIRED HOMEOSTASIS per A.D.A. criteria. Potassium [Moles/Vol] 4.3 mmol/L 3.5-5.1 [facility] Sodium [Moles/Vol] 142 mmol/L 136-145 [facility] Laboratory - Chemistry and C hemistry - challengeOrdered By: Monisha Yoon on 12-06-2023 CO2 [Moles/Vol] 29.0 mmol/L 21.0-32.0 [facility] Urea nitrogen/Creatinine [Mass ratio] 13.0 mg/mg 10-20 [facility] No Panel InformationOrdered By: Monisha Yoon on 12-06-2023 Estimated GFR (MDRD) Amer 29 mL/min >60 [facility] Comment on above: GFR Calc Estimated GFR (MDRD) Non-Af Amer 24 mL/min >60 [facility] Comment on above: Non- GFR Calc Parathyroid Hormone (Intact) 99.4 pg/mL 18.4-80.1 [facility] Serum or plasma calcium noam urement (mass/volume)Ordered By: Monisha Yoon on 12-06-2023 Calcium [Mass/Vol] 8.9 mg/dL 8.5-10.1 [facility] Serum or plasma creatinine m easurement (mass/volume)Ordered By: Monisha Yoon on 12-06-2023 Creatinine [Mass/Vol] 2.76 mg/dL 0.70-1.30 [facility] Comment on above: The validity of the calculated GFR & GFRAA in patients over 70 years has not been determined. Clinical correlation is essential. Serum or plasma urea nitroge n measurement (mass/volume)Ordered By: Monisha Yoon on 12-06-2023 Urea nitrogen [Mass/Vol] 36 mg/dL 7-18 [facility] Thin prep Papanicolaou smear with manual screeningOrdered By: Monisha Yoon on 12-06-2023 Thin prep Papanicolaou smear with manual screening 3.7 g/dL 3.2-5.0 [facility] No Panel Informationon 11-18 [facility] CNPNon 10-29-2023 CNPN Telephone ([facility]) JOHN ARRIOLA ([id number]) 1945 M Date Time Provider Department 10/29/23 GOKUL KUO [facility] During your visit today, we recorded the following information about you: Gokul Kuo, RT(R) 10/29/2023 9:05 AM Signed Marcel, Please protocol this Cardiac MRI scheduled in [place] on 11/19/2023. Thanks, Bj Johnson MD 10/29/2023 [...] ORAL) Take by mouth once daily. - [id number] RYL ORAL Take by mouth once daily. Problem List As Of Date: 10/29/2023 (None) Encounter Status:Closed by GOKUL KUO on 10/29/23 Normal [facility] Absolute lymphocyte countOrd ered By: Ruiz Gary on 09-13-2023 Lymphocytes Auto (Unsp spec) [#/Vol] 1.12 10*3/uL 0.83-4.51 [facility] Basophil percentageOrdered B y: Ruiz Gary on 09-13-2023 Basophils (Bld) [#/Vol] 4.4 10*3/uL 4.4-11.0 [facility] Basophils (Bld) [#/Vol] 2.6 10*3/uL 2.0-7.7 [facility] Basophils/100 WBC (Bld) 59.6 % 47-70 [facility] Basophils/100 WBC (Bld) 4.1 % 0-5 [facility] Basophils/100 WBC (Bld) 0.9 % 0-1 [facility] Eosinophils/100 WBC (Bld) 4.1 % 0-5 [facility] Neutrophils (Bld) [#/Vol] 2.6 10*3/uL 2.0-7.7 [facility] Neutrophils/100 WBC (Bld) 59.6 % 47-70 [facility] WBC (Bld) [#/Vol] 4.4 10*3/uL 4.4-11.0 [facility] Basophil percentage 115 mg/dL 74-106 [facility] Basophil percentage 7.1 g/dL 6.4-8.2 [facility] Basophil percentage 3.4 mg/dL 2.5-4.9 [facility] Basophil percentage 0.40 mg/dL 0.20-1.00 [facility] Basophil percentage 213 mg/dL <200 [facility] Basophil percentage 44 mg/dL <199 [facility] Basophil percentage 143 mmol/L 136-145 [facility] Basophil percentage 4.2 mmol/L 3.5-5.1 [facility] Basophil percentage 112 mmol/L 98-107 [facility] Bilirubin [Mass/Vol] 0.40 mg/dL 0.20-1.00 [facility] Comment on above: For patients on eltr ombopag therapy, use of Dimension [place] TBIL is not recommended. Chloride [Moles/Vol] 112 mmol/L 98-107 [facility] Cholesterol [Mass/Vol] 213 mg/dL <200 [facility] Comment on above: <200 mg/dL Desirable 200-240 mg/dL Borderline >240 mg/dL High Risk Glucose [Mass/Vol] 115 mg/dL 74-106 [facility] Comment on above: Fasting Glucose resu lt from 100 to 125 mg/dL suggests IMPAIRED HOMEOSTASIS per A.D.A. criteria. Potassium [Moles/Vol] 4.2 mmol/L 3.5-5.1 [facility] Protein [Mass/Vol] 7.1 g/dL 6.4-8.2 [facility] Sodium [Moles/Vol] 143 mmol/L 136-145 [facility] Triglyceride [Mass/Vol] 44 mg/dL <199 [facility] Comment on above: The drugs N-Acetylcy steine and Metamizole may falsely depress this assay.Serum Triglycerides Reference Interval Normal <150 mg/dL Borderline high 150 - 199 mg/dL High 200 - 499 mg/dL Very High > or = 500 mg/dL Blood erythrocytes count (nu mber/volume)Ordered By: Ruiz Gary on 09-13-2023 RBC (Bld) [#/Vol] 4.35 10*6/uL 4.6-6.2 [facility] Blood hemoglobin measurement (mass/volume)Ordered By: Ruiz Gary on 09-13-2023 Hemoglobin (Bld) [Mass/Vol] 12.7 g/dL 13.0-16.5 [facility] Blood lymphocytes/100 leukoc ytesOrdered By: Ruiz Gary on 09-13-2023 Lymphocytes/100 WBC (Bld) 25.6 % 19-41 [facility] Blood monocytes/100 leukocyt esOrdered By: Ruiz Gary on 09-13-2023 Monocytes/100 WBC (Bld) 9.1 % 0-10 [facility] Blood platelet mean volumeOr dered By: Ruiz Gary on 09-13-2023 Platelet mean volume (Bld) [Entitic vol] 10.3 fL 6.2-12.0 [facility] Determination of erythrocyte mean corpuscular volume (MCV)Ordered By: Ruiz Gary on 09-13-2023 MCV (RBC) [Entitic vol] 93.6 fL 80-94 [facility] Direct bilirubinOrdered By: Ruiz Gary on 09-13-2023 Bilirubin.direct [Mass/Vol] 0.12 mg/dL 0.00-0.30 [facility] Hematocrit Auto (Bld) [Volum e fraction]Ordered By: Ruiz Gary on 09-13-2023 Hematocrit (Bld) [Volume fraction] 40.7 % 40-54 [facility] Laboratory - Chemistry and C hemistry - challengeOrdered By: Ruiz Gary on 09-13-2023 ALP [Catalytic activity/Vol] 90 U/L 45-117 [facility] ALT [Catalytic activity/Vol] 17 U/L 16-61 [facility] CO2 [Moles/Vol] 27.0 mmol/L 21.0-32.0 [facility] Globulin (S) [Mass/Vol] 3.8 g/dL 2.2-4.2 [facility] Urea nitrogen/Creatinine [Mass ratio] 12.9 mg/mg 10-20 [facility] Laboratory - Hematology and Cell countsOrdered By: Ruiz Gary on 09-13-2023 Erythrocyte distribution width (RBC) [Entitic vol] 54.4 fL 35.1-43.9 [facility] Erythrocyte distribution width (RBC) [Ratio] 15.6 % 11.6-14.6 [facility] Immature granulocytes/100 WBC (Bld) 0.700 % 0.0-0.9 [facility] Comment on above: IG% - Immature Granu locytes (promyelocytes, myelocytes and metamyelocytes) > 1% indicates that a LEFT SHIFT is Present. MCH (RBC) [Entitic mass] 29.2 pg 27.0-32.0 [facility] Nucleated RBC/100 WBC (Bld) [Ratio] 0 % 0-5 [facility] MCHC Auto (RBC) [Mass/Vol]Or dered By: Ruiz Gary on 09-13-2023 MCHC (RBC) [Mass/Vol] 31.2 g/dL 32-36 [facility] No Panel InformationOrdered By: Ruiz Abdirahman on 09-13-2023 Parathyroid Hormone (Intact) 110.6 pg/mL 18.4-80.1 [facility] Urine Microalbumin/Creatinine Ratio 92.7 mg/g CRE <30 [facility] 29.2 pg 27.0-32.0 [facility] 15.6 % 11.6-14.6 [facility] 54.4 fl 35.1-43.9 [facility] 0.700 % 0.0-0.9 [facility] 0 % 0-5 [facility] 92.7 mg/g CRE <30 [facility] 110.6 pg/mL 18.4-80.1 [facility] Estimated GFR (MDRD) Amer 32 mL/min >60 [facility] Comment on above: GFR Calc Estimated GFR (MDRD) Non-Af Amer 26 mL/min >60 [facility] Comment on above: Non- GFR Calc 26 mL/min >60 [facility] 32 mL/min >60 [facility] 12.9 RATIO 10-20 [facility] 3.8 g/dL 2.2-4.2 [facility] 90 U/L 45-117 [facility] 17 U/L 16-61 [facility] 27.0 mmol/L 21.0-32.0 [facility] Platelets bldOrdered By: [place] elijah Gary on 09-13-2023 Platelets (Bld) [#/Vol] 185 10*3/uL 150-450 [facility] Serum or plasma albumin noam urement (mass/volume)Ordered By: Ruiz Gary on 09-13-2023 Albumin [Mass/Vol] 3.3 g/dL 3.2-5.0 [facility] Serum or plasma albumin/glob ulin mass ratioOrdered By: Ruiz Abdirahman on 09-13-2023 Albumin/Globulin [Mass ratio] 0.9 {ratio} 0.9-2.4 [facility] Serum or plasma calcium noam urement (mass/volume)Ordered By: Ruiz Abdirahman on 09-13-2023 Calcium [Mass/Vol] 8.7 mg/dL 8.5-10.1 [facility] Serum or plasma cholesterol in HDL measurement (mass/volume)Ordered By: [place] Abdirahman on 09-13-2023 Cholesterol in HDL [Mass/Vol] 76 mg/dL >40 [facility] Comment on above: The drugs N-Acetylcy steine and Metamizole may falsely depress this assay. Reference Range HDL <40 mg/dL Low HDL Cholesterol HDL >or= 60 mg/dL High HDL Cholesterol Serum or plasma cholesterol in VLDL measurement (mass/volume)Ordered By: Ruiz Gary on 09-13-2023 Cholesterol in VLDL [Mass/Vol] 9 mg/dL 5-40 [facility] Serum or plasma creatinine m easurement (mass/volume)Ordered By: Ruiz Gary on 09-13-2023 Creatinine [Mass/Vol] 2.55 mg/dL 0.70-1.30 [facility] Comment on above: The validity of the calculated GFR & GFRAA in patients over 70 years has not been determined. Clinical correlation is essential. Serum or plasma low density lipoprotein (LDL) cholesterol measurement (mass/volume)Ordered By: Ruiz Gary on 09-13-2023 Cholesterol in LDL [Mass/Vol] 128 mg/dL 0-130 [facility] Serum or plasma urea nitroge n measurement (mass/volume)Ordered By: Ruiz Gary on 09-13-2023 Urea nitrogen [Mass/Vol] 33 mg/dL 7-18 [facility] Thin prep Papanicolaou smear with manual screeningOrdered By: Ruiz Gary on 09-13-2023 Thin prep Papanicolaou smear with manual screening 83.6 mg/L NO RANGE EST. [facility] Thin prep Papanicolaou smear with manual screening 11 U/L 15-37 [facility] Thin prep Papanicolaou smear with manual screening 4 5-15 [facility] Urine creatinine measurement (mass/volume)Ordered By: Ruiz Gary on 09-13-2023 Creatinine (U) [Mass/Vol] 90.20 mg/dL NO RANGE EST. [facility] Whole blood hemoglobin A1c/t otal hemoglobin ratio (mass fraction)Ordered By: Ruiz Gary on 09-13-2023 HbA1c (Bld) [Mass fraction] 5.6 % 3.8-5.6 [facility] Comment on above: Normal < 5.7 % Predi abetic 5.7 - 6.4 % Diabetic >or= 6.5 % Please note range changes. Calcium oxalate dihydrate cr ystals detection in stone by infrared spectroscopyOrdered By: Joseph Mora on 09-02-2023 Calcium oxalate dihydrate crystals Infrared spectroscopy Ql (Stone) 10 % [facility] Color of specimen determinat ionOrdered By: Joseph Mora on 09-02-2023 Color (Unsp spec) Brown [facility] Laboratory - Miscellaneous t estsOrdered By: Joseph Mora on 09-02-2023 Service comment (Unsp spec) [Interp] See comment [facility] Comment on above: Physician questions regarding Calculi Analysis contact [facility] at :[phone]. Calculi report will follow via computer, mail, or railroad engineer delivery Measurement of weight of sto neOrdered By: Joseph Mora on 09-02-2023 Weight (Stone) 61 mg [facility] No Panel InformationOrdered By: Joseph Mora on 09-02-2023 Stone Analysis (T) See comment [facility] Comment on above: Percentage (Represen ts the % composition) Stone Calcium Oxalate Monohydrate 90 % [facility] See comment [facility] 90 % [facility] Origin of StoneOrdered By: Mia Mora on 09-02-2023 Origin Nom (Stone) Not Provided [facility] Size of stoneOrdered By: True Mora on 09-02-2023 Size (Stone) [Entitic vol] 7x5 mm [facility] Comment on above: Single piece receive d Thin prep Papanicolaou smear with manual screeningOrdered By: Joseph Mora on 09-02-2023 Thin prep Papanicolaou smear with manual screening See comment [facility] Comment on above: Photograph will foll ow under a separate cover Absolute lymphocyte countOrd ered By: rFida Barber on 08-12-2023 Lymphocytes Auto (Unsp spec) [#/Vol] 0.93 10*3/uL 0.83-4.51 [facility] Basophil percentageOrdered B y: Frida Barber on 08-12-2023 Basophil percentage 108 mg/dL 74-106 [facility] Basophil percentage 7.3 g/dL 6.4-8.2 [facility] Basophil percentage 0.40 mg/dL 0.20-1.00 [facility] Basophil percentage 140 mmol/L 136-145 [facility] Basophil percentage 4.8 mmol/L 3.5-5.1 [facility] Basophil percentage 106 mmol/L 98-107 [facility] Basophils (Bld) [#/Vol] 5.0 10*3/uL 4.4-11.0 [facility] Basophils (Bld) [#/Vol] 3.5 10*3/uL 2.0-7.7 [facility] Basophils/100 WBC (Bld) 0.6 % 0-1 [facility] Basophils/100 WBC (Bld) 69.9 % 47-70 [facility] Basophils/100 WBC (Bld) 1.4 % 0-5 [facility] Bilirubin [Mass/Vol] 0.40 mg/dL 0.20-1.00 [facility] Comment on above: For patients on eltr ombopag therapy, use of Dimension [place] TBIL is not recommended. Chloride [Moles/Vol] 106 mmol/L 98-107 [facility] Eosinophils/100 WBC (Bld) 1.4 % 0-5 [facility] Glucose [Mass/Vol] 108 mg/dL 74-106 [facility] Comment on above: Fasting Glucose resu lt from 100 to 125 mg/dL suggests IMPAIRED HOMEOSTASIS per A.D.A. criteria. Neutrophils (Bld) [#/Vol] 3.5 10*3/uL 2.0-7.7 [facility] Neutrophils/100 WBC (Bld) 69.9 % 47-70 [facility] Potassium [Moles/Vol] 4.8 mmol/L 3.5-5.1 [facility] Protein [Mass/Vol] 7.3 g/dL 6.4-8.2 [facility] Sodium [Moles/Vol] 140 mmol/L 136-145 [facility] WBC (Bld) [#/Vol] 5.0 10*3/uL 4.4-11.0 [facility] Blood erythrocytes count (nu mber/volume)Ordered By: Frida Barber on 08-12-2023 RBC (Bld) [#/Vol] 4.09 10*6/uL 4.6-6.2 [facility] Blood hemoglobin measurement (mass/volume)Ordered By: Frida Barber on 08-12-2023 Hemoglobin (Bld) [Mass/Vol] 11.7 g/dL 13.0-16.5 [facility] Blood lymphocytes/100 leukoc ytesOrdered By: Frida Barber on 08-12-2023 Lymphocytes/100 WBC (Bld) 18.8 % 19-41 [facility] Blood monocytes/100 leukocyt esOrdered By: Frida Barber on 08-12-2023 Monocytes/100 WBC (Bld) 8.7 % 0-10 [facility] Blood platelet mean volumeOr dered By: Frida Barber on 08-12-2023 Platelet mean volume (Bld) [Entitic vol] 10.1 fL 6.2-12.0 [facility] Determination of erythrocyte mean corpuscular volume (MCV)Ordered By: Frida Barber on 08-12-2023 MCV (RBC) [Entitic vol] 92.7 fL 80-94 [facility] Hematocrit Auto (Bld) [Volum e fraction]Ordered By: Frida Barber on 08-12-2023 Hematocrit (Bld) [Volume fraction] 37.9 % 40-54 [facility] Laboratory - Chemistry and C hemistry - challengeOrdered By: Fridasonu Barber on 08-12-2023 ALP [Catalytic activity/Vol] 83 U/L 45-117 [facility] ALT [Catalytic activity/Vol] 19 U/L 16-61 [facility] CO2 [Moles/Vol] 29.0 mmol/L 21.0-32.0 [facility] Globulin (S) [Mass/Vol] 4.0 g/dL 2.2-4.2 [facility] Urea nitrogen/Creatinine [Mass ratio] 12.7 mg/mg 10-20 [facility] Laboratory - Hematology and Cell countsOrdered By: Fridasonu Barber on 08-12-2023 Erythrocyte distribution width (RBC) [Entitic vol] 48.5 fL 35.1-43.9 [facility] Erythrocyte distribution width (RBC) [Ratio] 14.3 % 11.6-14.6 [facility] Immature granulocytes/100 WBC (Bld) 0.600 % 0.0-0.9 [facility] Comment on above: IG% - Immature Granu locytes (promyelocytes, myelocytes and metamyelocytes) > 1% indicates that a LEFT SHIFT is Present. MCH (RBC) [Entitic mass] 28.6 pg 27.0-32.0 [facility] Nucleated RBC/100 WBC (Bld) [Ratio] 0 % 0-5 [facility] MCHC Auto (RBC) [Mass/Vol]Or dered By: Frdiasonu Barber on 08-12-2023 MCHC (RBC) [Mass/Vol] 30.9 g/dL 32-36 [facility] No Panel InformationOrdered By: Frida Barber on 08-12-2023 Estimated GFR (MDRD) Amer 30 mL/min >60 [facility] Comment on above: GFR Calc Estimated GFR (MDRD) Non-Af Amer 25 mL/min >60 [facility] Comment on above: Non- GFR Calc 28.6 pg 27.0-32.0 [facility] 14.3 % 11.6-14.6 [facility] 48.5 fl 35.1-43.9 [facility] 0.600 % 0.0-0.9 [facility] 0 % 0-5 [facility] 25 mL/min >60 [facility] 30 mL/min >60 [facility] 12.7 RATIO 10-20 [facility] 4.0 g/dL 2.2-4.2 [facility] 83 U/L 45-117 [facility] 19 U/L 16-61 [facility] 29.0 mmol/L 21.0-32.0 [facility] Platelets bldOrdered By: Ricky Barber on 08-12-2023 Platelets (Bld) [#/Vol] 207 10*3/uL 150-450 [facility] Serum or plasma albumin noam urement (mass/volume)Ordered By: Frida Barber on 08-12-2023 Albumin [Mass/Vol] 3.3 g/dL 3.2-5.0 [facility] Serum or plasma albumin/glob ulin mass ratioOrdered By: Frida Barber on 08-12-2023 Albumin/Globulin [Mass ratio] 0.8 {ratio} 0.9-2.4 [facility] Serum or plasma calcium noam urement (mass/volume)Ordered By: Frida Barber on 08-12-2023 Calcium [Mass/Vol] 8.6 mg/dL 8.5-10.1 [facility] Serum or plasma creatinine m easurement (mass/volume)Ordered By: Frida Barber on 08-12-2023 Creatinine [Mass/Vol] 2.68 mg/dL 0.70-1.30 [facility] Comment on above: The validity of the calculated GFR & GFRAA in patients over 70 years has not been determined. Clinical correlation is essential. Serum or plasma urea nitroge n measurement (mass/volume)Ordered By: Frida Barber on 08-12-2023 Urea nitrogen [Mass/Vol] 34 mg/dL 7-18 [facility] Thin prep Papanicolaou smear with manual screeningOrdered By: Frida Barber on 08-12-2023 Thin prep Papanicolaou smear with manual screening 17 U/L 15-37 [facility] Thin prep Papanicolaou smear with manual screening 5 5-15 [facility] Basophil percentageOrdered B y: Joseph Mora on 07-22-2023 Basophil percentage 124 mg/dL 74-106 [facility] Basophil percentage 137 mmol/L 136-145 [facility] Basophil percentage 3.8 mmol/L 3.5-5.1 [facility] Basophil percentage 108 mmol/L 98-107 [facility] Basophils (Bld) [#/Vol] 21.6 10*3/uL 4.4-11.0 [facility] Chloride [Moles/Vol] 108 mmol/L 98-107 [facility] Glucose [Mass/Vol] 124 mg/dL 74-106 [facility] Comment on above: Fasting Glucose resu lt from 100 to 125 mg/dL suggests IMPAIRED HOMEOSTASIS per A.D.A. criteria. Potassium [Moles/Vol] 3.8 mmol/L 3.5-5.1 [facility] Sodium [Moles/Vol] 137 mmol/L 136-145 [facility] WBC (Bld) [#/Vol] 21.6 10*3/uL 4.4-11.0 [facility] Blood erythrocytes count (nu mber/volume)Ordered By: Joseph Mora on 07-22-2023 RBC (Bld) [#/Vol] 3.86 10*6/uL 4.6-6.2 [facility] Blood hemoglobin measurement (mass/volume)Ordered By: Joseph Mora on 07-22-2023 Hemoglobin (Bld) [Mass/Vol] 11.4 g/dL 13.0-16.5 [facility] Blood platelet mean volumeOr dered By: Joseph Mora on 07-22-2023 Platelet mean volume (Bld) [Entitic vol] 10.3 fL 6.2-12.0 [facility] Determination of erythrocyte mean corpuscular volume (MCV)Ordered By: Joseph Mora on 07-22-2023 MCV (RBC) [Entitic vol] 92.2 fL 80-94 [facility] Hematocrit Auto (Bld) [Volum e fraction]Ordered By: Joseph Mora on 07-22-2023 Hematocrit (Bld) [Volume fraction] 35.6 % 40-54 [facility] Laboratory - Chemistry and C hemistry - challengeOrdered By: Joseph Mora on 07-22-2023 CO2 [Moles/Vol] 23.0 mmol/L 21.0-32.0 [facility] Urea nitrogen/Creatinine [Mass ratio] 12.4 mg/mg 10 [facility] Laboratory - Hematology and Cell countsOrdered By: Joseph Mora on 07-22-2023 Erythrocyte distribution width (RBC) [Entitic vol] 47.8 fL 35.1-43.9 [facility] Erythrocyte distribution width (RBC) [Ratio] 14.2 % 11.6-14.6 [facility] MCH (RBC) [Entitic mass] 29.5 pg 27.0-32.0 [facility] MCHC Auto (RBC) [Mass/Vol]Or dered By: Joseph Mora on 07-22-2023 MCHC (RBC) [Mass/Vol] 32.0 g/dL 32-36 [facility] No Panel InformationOrdered By: Joseph Mora on 07-22-2023 Estimated Creatinine Clearance Calc 22.19 ml/min [facility] Estimated GFR (MDRD) Amer 29 mL/min >60 [facility] Comment on above: GFR Calc Estimated GFR (MDRD) Non-Af Amer 24 mL/min >60 [facility] Comment on above: Non- GFR Calc 29.5 pg 27.0-32.0 [facility] 14.2 % 11.6-14.6 [facility] 47.8 fl 35.1-43.9 [facility] 24 mL/min >60 [facility] 29 mL/min >60 [facility] 22.19 ml/min [facility] 12.4 RATIO 07-05 [facility] 23.0 mmol/L 21.0-32.0 [facility] Platelets bldOrdered By: True Mora on 07-22-2023 Platelets (Bld) [#/Vol] 169 10*3/uL 150-450 [facility] Serum or plasma calcium noam urement (mass/volume)Ordered By: Joseph Mora on 07-22-2023 Calcium [Mass/Vol] 7.3 mg/dL 8.5-10.1 [facility] Serum or plasma creatinine m easurement (mass/volume)Ordered By: Joseph Mora on 07-22-2023 Creatinine [Mass/Vol] 2.74 mg/dL 0.70-1.30 [facility] Comment on above: The validity of the calculated GFR & GFRAA in patients over 70 years has not been determined. Clinical correlation is essential. Serum or plasma urea nitroge n measurement (mass/volume)Ordered By: Joseph Mora on 07-22-2023 Urea nitrogen [Mass/Vol] 34 mg/dL 7-18 [facility] Thin prep Papanicolaou smear with manual screeningOrdered By: Josephsami Mora on 07-22-2023 Thin prep Papanicolaou smear with manual screening 6 5-15 [facility] Absolute lymphocyte countOrd ered By: Josemanuel Roa on 07-21-2023 Lymphocytes Auto (Unsp spec) [#/Vol] 1.14 10*3/uL 0.83-4.51 [facility] Bacteria identified Cx Nom ( U)Ordered By: Josemanuel Roa on 07-21-2023 Culture, urine Pseudomonas aeruginosa [facility] Basophil percentageOrdered B y: Josemanuel Roa on 07-21-2023 Basophil percentage 1.8 mmol/L 0.4-2.0 [facility] Lactate [Moles/Vol] 1.8 mmol/L 0.4-2.0 [facility] Basophil percentage Not Reportable [facility] Basophils (Bld) [#/Vol] 26.6 10*3/uL 2.0-7.7 [facility] Chloride [Moles/Vol] 102 mmol/L 98-107 [facility] Glucose [Mass/Vol] 157 mg/dL 74-106 [facility] Comment on above: Fasting Glucose resu lt greater than or equal to 126 mg/dL suggests DIABETES MELLITUS per A.D.A. criteria. Neutrophils (Bld) [#/Vol] 26.6 10*3/uL 2.0-7.7 [facility] Potassium [Moles/Vol] 3.7 mmol/L 3.5-5.1 [facility] Sodium [Moles/Vol] 137 mmol/L 136-145 [facility] WBC (Bld) [#/Vol] 28.6 10*3/uL 4.4-11.0 [facility] Basophil percentage 50-100 SEEN /hpf 0-5 [facility] Bilirubin Test strip Ql (U)O rdered By: Josemanuel Roa on 07-21-2023 Bilirubin Ql (U) 3 mg/dL Negative [facility] Comment on above: COLOR OF URINE MAY A FFECT DIPSTICK RESULTS. Blood band neutrophil count as percentage of total leukocytesOrdered By: Josemanuel Roa on 07-21-2023 Band form neutrophils/100 WBC (Bld) 5 % 0-5 [facility] Blood erythrocytes count (nu mber/volume)Ordered By: Josemanuel Roa on 07-21-2023 RBC (Bld) [#/Vol] 4.63 10*6/uL 4.6-6.2 [facility] Blood hemoglobin measurement (mass/volume)Ordered By: Josemanuel Roa on 07-21-2023 Hemoglobin (Bld) [Mass/Vol] 13.4 g/dL 13.0-16.5 [facility] Blood lymphocytes/100 leukoc ytesOrdered By: Josemanuel Roa on 07-21-2023 Lymphocytes/100 WBC (Bld) 4 % 19-41 [facility] Blood manual differential co mment interpretation (narrative result)Ordered By: Josemanuel Roa on 07-21-2023 Manual differential comment Fred (Bld) [Interp] SCANNED [facility] Blood metamyelocytes/100 jorge kocytesOrdered By: Josemanuel Roa on 07-21-2023 Metamyelocytes/100 WBC (Bld) 1 % 0-1 [facility] Blood monocytes/100 leukocyt esOrdered By: Josemanuel Roa on 07-21-2023 Monocytes/100 WBC (Bld) 3 % 0-10 [facility] Blood platelet adequacy dete ction by light microscopyOrdered By: Josemanuel Roa on 07-21-2023 Platelets LM Ql (Bld) ADEQUATE ADEQ [facility] Blood platelet mean volumeOr dered By: Josemanuel Roa on 07-21-2023 Platelet mean volume (Bld) [Entitic vol] 9.4 fL 6.2-12.0 [facility] Blood segmented neutrophils/ 100 leukocytesOrdered By: Josemanuel Roa on 07-21-2023 Segmented neutrophils/100 WBC (Bld) 87 % 47-70 [facility] Calcium oxalate dihydrate cr ystals detection in stone by infrared spectroscopyOrdered By: Joseph Mora on 07-21-2023 Calcium oxalate dihydrate crystals Infrared spectroscopy Ql (Stone) 10 % [facility] Color of specimen determinat ionOrdered By: Joseph Mora on 07-21-2023 Color (Unsp spec) Brown [facility] Culture, urineOrdered By: Do emma Roa on 07-21-2023 Bacteria identified Cx Nom (U) Pseudomonas aeruginosa [facility] Determination of erythrocyte mean corpuscular volume (MCV)Ordered By: Josemanuel Roa on 07-21-2023 MCV (RBC) [Entitic vol] 91.4 fL 80-94 [facility] Hematocrit Auto (Bld) [Volum e fraction]Ordered By: Josemanuel Roa on 07-21-2023 Hematocrit (Bld) [Volume fraction] 42.3 % 40-54 [facility] INR in Blood by Coagulation assayOrdered By: Josemanuel Roa on 07-21-2023 INR Coag (Bld) [Relative time] 1.2 {INR} [facility] Ketones Test strip Ql (U)Ord ered By: Josemanuel Roa on 07-21-2023 Ketones Ql (U) 5 mg/dl Negative [facility] Laboratory - Chemistry and C hemistry - challengeOrdered By: Josemanuel Roa on 07-21-2023 CO2 [Moles/Vol] 28.0 mmol/L 21.0-32.0 [facility] Urea nitrogen/Creatinine [Mass ratio] 10.6 mg/mg 10-20 [facility] Laboratory - CoagulationOrde red By: Josemanuel Roa on 07-21-2023 PT Coag (PPP) [Time] 15.3 s 11.7-14.9 [facility] Laboratory - Hematology and Cell countsOrdered By: Josemanuel Roa on 07-21-2023 Erythrocyte distribution width (RBC) [Entitic vol] 46.3 fL 35.1-43.9 [facility] Erythrocyte distribution width (RBC) [Ratio] 14.0 % 11.6-14.6 [facility] MCH (RBC) [Entitic mass] 28.9 pg 27.0-32.0 [facility] Laboratory - Microbiology an d Antimicrobial susceptibilityOrdered By: Josemanuel Roa on 07-21-2023 Bacteria identified Cx Nom (Bld) GNR Poss Pseudomonas sp [facility] Bacteria identified Cx Nom (Bld) Pseudomonas aeruginosa [facility] Laboratory - Miscellaneous t estsOrdered By: Joseph Mora on 07-21-2023 Service comment (Unsp spec) [Interp] See comment [facility] Comment on above: Physician questions regarding Calculi Analysis contact [facility] at: [phone]. Calculi report will follow via computer, mail, or railroad engineer delivery. MCHC Auto (RBC) [Mass/Vol]Or dered By: Josemanuel Roa on 07-21-2023 MCHC (RBC) [Mass/Vol] 31.7 g/dL 32-36 [facility] Measurement of weight of sto neOrdered By: Joseph Mora on 07-21-2023 Weight (Stone) 67 mg [facility] Mucus LM Ql (Urine sed)Order ed By: Josemanuel Roa on 07-21-2023 Mucus Ql (Urine sed) 0 SEEN /hpf [facility] Nitrite Test strip Ql (U)Ord ered By: Josemanuel Roa on 07-21-2023 Nitrite Ql (U) Positive Negative [facility] No Panel InformationOrdered By: Joseph Mora on 07-21-2023 Stone Analysis (T) See comment [facility] Comment on above: Percentage (Represen ts the % composition) Stone Calcium Oxalate Monohydrate 90 % [facility] See comment [facility] 90 % [facility] No Panel InformationOrdered By: Josemanuel Roa on 07-21-2023 15.3 SECONDS 11.7-14.9 [facility] GNR Poss Pseudomonas sp [facility] Pseudomonas aeruginosa Wo [facility] Estimated Creatinine Clearance Calc 23.90 ml/min [facility] Estimated GFR (MDRD) Amer 31 mL/min >60 [facility] Comment on above: GFR Calc Estimated GFR (MDRD) Non-Af Amer 25 mL/min >60 [facility] Comment on above: Non- GFR Calc Origin of StoneOrdered By: Mia Mora on 07-21-2023 Origin Nom (Stone) Right Ureteral [facility] Platelets bldOrdered By: Kenji Roa on 07-21-2023 Platelets (Bld) [#/Vol] 210 10*3/uL 150-450 [facility] Protein Test strip Ql (U)Ord ered By: Josemanuel Roa on 07-21-2023 Protein Ql (U) 100 mg/dl Negative [facility] RBC morphologyOrdered By: Do emma Roa on 07-21-2023 RBC morphology finding Nom (Bld) NORM C+C NORMAL NORM C&C [facility] Review by pathologistOrdered By: Josemanuel Roa on 07-21-2023 Pathologist review Fred (Unsp spec) [Interp] Leslie gant [facility] Pathologist review Fred (Unsp spec) [Interp] Reviewed [facility] Comment on above: Previous reported re sult: Leslie gant Edited by: ERIC on 07/23/23:0819Neutrophilic leukocytosis.Clinical correlation necessary.Hector Maza M.D. 07/23/23 AMENDED REPORT 07/23/23 0819 PATH REV previously reported as: Leslie gant Serum or plasma calcium noam urement (mass/volume)Ordered By: Josemanuel Roa on 07-21-2023 Calcium [Mass/Vol] 8.6 mg/dL 8.5-10.1 [facility] Serum or plasma creatinine m easurement (mass/volume)Ordered By: Josemanuel Roa on 07-21-2023 Creatinine [Mass/Vol] 2.63 mg/dL 0.70-1.30 [facility] Comment on above: The validity of the calculated GFR & GFRAA in patients over 70 years has not been determined. Clinical correlation is essential. Serum or plasma urea nitroge n measurement (mass/volume)Ordered By: Josemanuel Roa on 07-21-2023 Urea nitrogen [Mass/Vol] 28 mg/dL 7-18 [facility] Size of stoneOrdered By: True Mora on 07-21-2023 Size (Stone) [Entitic vol] 6x6 mm [facility] Comment on above: Single piece receive d. Squamous epithelial cells de tection in urine sediment by light microscopyOrdered By: Josemanuel Roa on 07-21-2023 Epithelial cells.squamous LM Ql (Urine sed) 0 SEEN /hpf 0-5 [facility] Thin prep Papanicolaou smear with manual screeningOrdered By: Joseph Mora on 07-21-2023 Thin prep Papanicolaou smear with manual screening See comment [facility] Comment on above: Photograph will foll ow under a separate cover Thin prep Papanicolaou smear with manual screeningOrdered By: Josemanuel Roa on 07-21-2023 Thin prep Papanicolaou smear with manual screening 7 5-15 [facility] Total cell countOrdered By: Josemanuel Roa on 07-21-2023 Cells counted Molgen (Bld/Tiss) [#] 100 MANUAL DIFF [facility] Urine blood detectionOrdered By: Josemanuel Roa on 07-21-2023 RBC Ql (U) 250 /ul Negative [facility] RBC Ql (U) > 100 SEEN /hpf 0-5 [facility] Urine clarityOrdered By: Kenji Roa on 07-21-2023 Clarity (U) Cloudy Clear [facility] Urine color determinationOrd ered By: Josemanuel Roa on 07-21-2023 Color (U) Yellow Yellow [facility] Urine glucose detectionOrder ed By: Josemanuel Roa on 07-21-2023 Glucose Ql (U) Normal mg/dl Normal [facility] Urine leukocyte esterase det ection by dipstickOrdered By: Josemanuel Roa on 07-21-2023 Leukocyte esterase Test strip Ql (U) 500 /ul Negative [facility] Urine pHOrdered By: Josemanuel medina on 07-21-2023 pH (U) 6.5 [pH] 5.0 - 8.0 [facility] Urine sediment bacteria coun t by microscopy (number/high power field)Ordered By: Josemanuel Roa on 07-21-2023 Bacteria LM.HPF (Urine sed) [#/Area] 1 /[HPF] None Seen [facility] Urine specific gravity measu rementOrdered By: Josemanuel Roa on 07-21-2023 Specific gravity (U) [Rel density] 1.015 1.002-1.03 0 [facility] Urobilinogen Auto test strip Ql (U)Ordered By: Josemanuel Roa on 07-21-2023 Urobilinogen Ql (U) 8 mg/dl Normal [facility] Absolute lymphocyte countOrd ered By: Silvestre Pitts on 07-07-2023 Lymphocytes Auto (Unsp spec) [#/Vol] 0.74 10*3/uL 0.83-4.51 [facility] Bacteria identified Cx Nom ( U)Ordered By: Silvestre Pitts on 07-07-2023 Culture, urine GNR Poss Pseudomonas sp [facility] Basophil percentageOrdered B y: Silvestre Pitts on 07-07-2023 Basophil percentage 10-25 SEEN /hpf 0-5 [facility] Basophil percentage 166 mg/dL 74-106 [facility] Basophil percentage 7.4 g/dL 6.4-8.2 [facility] Basophil percentage 0.40 mg/dL 0.20-1.00 [facility] Basophil percentage 138 mmol/L 136-145 [facility] Basophil percentage 3.7 mmol/L 3.5-5.1 [facility] Basophil percentage 101 mmol/L 98-107 [facility] Basophils (Bld) [#/Vol] 8.1 10*3/uL 4.4-11.0 [facility] Basophils (Bld) [#/Vol] 6.4 10*3/uL 2.0-7.7 [facility] Basophils/100 WBC (Bld) 0.5 % 0-1 [facility] Basophils/100 WBC (Bld) 79.6 % 47-70 [facility] Basophils/100 WBC (Bld) 0.9 % 0-5 [facility] Bilirubin [Mass/Vol] 0.40 mg/dL 0.20-1.00 [facility] Comment on above: For patients on eltr ombopag therapy, use of Dimension [place] TBIL is not recommended. Chloride [Moles/Vol] 101 mmol/L 98-107 [facility] Eosinophils/100 WBC (Bld) 0.9 % 0-5 [facility] Glucose [Mass/Vol] 166 mg/dL 74-106 [facility] Comment on above: Fasting Glucose resu lt greater than or equal to 126 mg/dL suggests DIABETES MELLITUS per A.D.A. criteria. Neutrophils (Bld) [#/Vol] 6.4 10*3/uL 2.0-7.7 [facility] Neutrophils/100 WBC (Bld) 79.6 % 47-70 [facility] Potassium [Moles/Vol] 3.7 mmol/L 3.5-5.1 [facility] Protein [Mass/Vol] 7.4 g/dL 6.4-8.2 [facility] Sodium [Moles/Vol] 138 mmol/L 136-145 [facility] WBC (Bld) [#/Vol] 8.1 10*3/uL 4.4-11.0 [facility] Bilirubin Test strip Ql (U)O rdered By: Silvestre Pitts on 07-07-2023 Bilirubin Ql (U) Negative Negative [facility] Blood erythrocytes count (nu mber/volume)Ordered By: Silvestre Pitts on 07-07-2023 RBC (Bld) [#/Vol] 4.11 10*6/uL 4.6-6.2 [facility] Blood hemoglobin measurement (mass/volume)Ordered By: Silvestre Pitts on 07-07-2023 Hemoglobin (Bld) [Mass/Vol] 12.0 g/dL 13.0-16.5 [facility] Blood lymphocytes/100 leukoc ytesOrdered By: Silvestre Pitts on 07-07-2023 Lymphocytes/100 WBC (Bld) 9.2 % 19-41 [facility] Blood monocytes/100 leukocyt esOrdered By: Silvestre Pitts on 07-07-2023 Monocytes/100 WBC (Bld) 9.2 % 0-10 [facility] Blood platelet mean volumeOr dered By: Silvestre Pitts on 07-07-2023 Platelet mean volume (Bld) [Entitic vol] 10.5 fL 6.2-12.0 [facility] Culture, urineOrdered By: Raz Pitts on 07-07-2023 Bacteria identified Cx Nom (U) GNR Poss Pseudomonas sp [facility] Determination of erythrocyte mean corpuscular volume (MCV)Ordered By: Silvestre Pitts on 07-07-2023 MCV (RBC) [Entitic vol] 94.2 fL 80-94 [facility] Hematocrit Auto (Bld) [Volum e fraction]Ordered By: Silvestre Pitts on 07-07-2023 Hematocrit (Bld) [Volume fraction] 38.7 % 40-54 [facility] Ketones Test strip Ql (U)Ord ered By: Silvestre Pitts on 07-07-2023 Ketones Ql (U) Negative Negative [facility] Laboratory - Chemistry and C hemistry - challengeOrdered By: Silvestre Pitts on 07-07-2023 ALP [Catalytic activity/Vol] 95 U/L 45-117 [facility] ALT [Catalytic activity/Vol] 18 U/L 16-61 [facility] CO2 [Moles/Vol] 30.0 mmol/L 21.0-32.0 [facility] Globulin (S) [Mass/Vol] 4.2 g/dL 2.2-4.2 [facility] Lipase [Catalytic activity/Vol] 33 U/L 13-75 [facility] Comment on above: Please note:LIPASE r evised reference range effective 22. New Lipase methodology. Expected to produce lower values than the previous assay method. NEW Reference Range: 13 - 75 U/L Urea nitrogen/Creatinine [Mass ratio] 11.8 mg/mg 10-20 [facility] Laboratory - Hematology and Cell countsOrdered By: Silvestre Pitts on 07-07-2023 Erythrocyte distribution width (RBC) [Entitic vol] 44.4 fL 35.1-43.9 [facility] Erythrocyte distribution width (RBC) [Ratio] 12.9 % 11.6-14.6 [facility] Immature granulocytes/100 WBC (Bld) 0.600 % 0.0-0.9 [facility] Comment on above: IG% - Immature Granu locytes (promyelocytes, myelocytes and metamyelocytes) > 1% indicates that a LEFT SHIFT is Present. MCH (RBC) [Entitic mass] 29.2 pg 27.0-32.0 [facility] Nucleated RBC/100 WBC (Bld) [Ratio] 0 % 0-5 [facility] MCHC Auto (RBC) [Mass/Vol]Or dered By: Silvestre Pitts on 07-07-2023 MCHC (RBC) [Mass/Vol] 31.0 g/dL 32-36 [facility] Mucus LM Ql (Urine sed)Order ed By: Silvestre Pitts on 07-07-2023 Mucus Ql (Urine sed) 0 SEEN /hpf [facility] Nitrite Test strip Ql (U)Ord ered By: Silvestre Pitts on 07-07-2023 Nitrite Ql (U) Negative Negative [facility] No Panel InformationOrdered By: Silvestre Pitts on 07-07-2023 Estimated Creatinine Clearance Calc 28.46 ml/min [facility] Estimated GFR (MDRD) Amer 36 mL/min >60 [facility] Comment on above: GFR Calc Estimated GFR (MDRD) Non-Af Amer 30 mL/min >60 [facility] Comment on above: Non- GFR Calc 29.2 pg 27.0-32.0 [facility] 12.9 % 11.6-14.6 [facility] 44.4 fl 35.1-43.9 [facility] 0.600 % 0.0-0.9 [facility] 0 % 0-5 [facility] 30 mL/min >60 [facility] 36 mL/min >60 [facility] 28.46 ml/min [facility] 11.8 RATIO 10-20 [facility] 4.2 g/dL 2.2-4.2 [facility] 33 U/L 13-75 [facility] 95 U/L 45-117 [facility] 18 U/L 16-61 [facility] 30.0 mmol/L 21.0-32.0 [facility] Platelets bldOrdered By: Yenny Pitts on 07-07-2023 Platelets (Bld) [#/Vol] 206 10*3/uL 150-450 [facility] Protein Test strip Ql (U)Ord ered By: Silvestre Pitts on 07-07-2023 Protein Ql (U) 30 mg/dl Negative [facility] Serum or plasma albumin noam urement (mass/volume)Ordered By: Silvestre Pitts on 07-07-2023 Albumin [Mass/Vol] 3.2 g/dL 3.2-5.0 [facility] Serum or plasma albumin/glob ulin mass ratioOrdered By: Silvestre Pitts on 07-07-2023 Albumin/Globulin [Mass ratio] 0.8 {ratio} 0.9-2.4 [facility] Serum or plasma calcium noam urement (mass/volume)Ordered By: Silvestre Pitts on 07-07-2023 Calcium [Mass/Vol] 8.6 mg/dL 8.5-10.1 [facility] Serum or plasma creatinine m easurement (mass/volume)Ordered By: Silvestre Pitts on 07-07-2023 Creatinine [Mass/Vol] 2.28 mg/dL 0.70-1.30 [facility] Comment on above: The validity of the calculated GFR & GFRAA in patients over 70 years has not been determined. Clinical correlation is essential. Serum or plasma urea nitroge n measurement (mass/volume)Ordered By: Silvestre Pitts on 07-07-2023 Urea nitrogen [Mass/Vol] 27 mg/dL 7-18 [facility] Squamous epithelial cells de tection in urine sediment by light microscopyOrdered By: Silvestre Pitts on 07-07-2023 Epithelial cells.squamous LM Ql (Urine sed) 0 SEEN /hpf 0-5 [facility] Thin prep Papanicolaou smear with manual screeningOrdered By: Silvestre Pitts on 07-07-2023 Thin prep Papanicolaou smear with manual screening 15 U/L 15-37 [facility] Thin prep Papanicolaou smear with manual screening 7 5-15 [facility] Urine blood detectionOrdered By: Silvestre Pitts on 07-07-2023 RBC Ql (U) 50 /ul Negative [facility] RBC Ql (U) 0-5 SEEN /hpf 0-5 [facility] Urine clarityOrdered By: Yenny Pitts on 07-07-2023 Clarity (U) Clear Clear [facility] Urine color determinationOrd ered By: Silvestre Pitts on 07-07-2023 Color (U) Yellow Yellow [facility] Urine glucose detectionOrder ed By: Silvestre Pitts on 07-07-2023 Glucose Ql (U) 100 mg/dl Normal [facility] Urine leukocyte esterase det ection by dipstickOrdered By: Silvestre Pitts on 07-07-2023 Leukocyte esterase Test strip Ql (U) 500 /ul Negative [facility] Urine pHOrdered By: Silvestre fraser on 07-07-2023 pH (U) 6.5 [pH] 5.0 - 8.0 [facility] Urine sediment bacteria coun t by microscopy (number/high power field)Ordered By: Silvestre Pitts on 07-07-2023 Bacteria LM.HPF (Urine sed) [#/Area] 0 /[HPF] None Seen [facility] Urine specific gravity measu rementOrdered By: Silvestre Pitts on 07-07-2023 Specific gravity (U) [Rel density] 1.015 1.002-1.03 0 [facility] Urobilinogen Auto test strip Ql (U)Ordered By: Silvestre Pitts on 07-07-2023 Urobilinogen Ql (U) Normal mg/dl Normal [facility] Basophil percentageOrdered B y: Delvis Maldonado on 06-26-2023 Basophil percentage 217 mg/dL 74-106 [facility] Basophil percentage 136 mmol/L 136-145 [facility] Basophil percentage 4.2 mmol/L 3.5-5.1 [facility] Basophil percentage 105 mmol/L 98-107 [facility] Chloride [Moles/Vol] 105 mmol/L 98-107 [facility] Glucose [Mass/Vol] 217 mg/dL 74-106 [facility] Comment on above: Glucose result great er than or equal to 200 mg/dLsuggests DIABETES MELLITUS per A.D.A. criteria. Potassium [Moles/Vol] 4.2 mmol/L 3.5-5.1 [facility] Sodium [Moles/Vol] 136 mmol/L 136-145 [facility] Laboratory - Chemistry and C hemistry - challengeOrdered By: Delvis Maldonado on 06-26-2023 CO2 [Moles/Vol] 26.0 mmol/L 21.0-32.0 [facility] Urea nitrogen/Creatinine [Mass ratio] 9.5 mg/mg - [facility] No Panel InformationOrdered By: Delvis Maldonado on 06-26-2023 Estimated GFR (MDRD) Amer 36 mL/min >60 [facility] Comment on above: GFR Calc Estimated GFR (MDRD) Non-Af Amer 29 mL/min >60 [facility] Comment on above: Non- GFR Calc 29 mL/min >60 [facility] 36 mL/min >60 [facility] 9.5 RATIO 10-20 [facility] 26.0 mmol/L 21.0-32.0 [facility] Serum or plasma calcium noam urement (mass/volume)Ordered By: Delvis Maldonado on 06-26-2023 Calcium [Mass/Vol] 8.6 mg/dL 8.5-10.1 [facility] Serum or plasma creatinine m easurement (mass/volume)Ordered By: Delvis Maldonado on 06-26-2023 Creatinine [Mass/Vol] 2.31 mg/dL 0.70-1.30 [facility] Comment on above: The validity of the calculated GFR & GFRAA in patients over 70 years has not been determined. Clinical correlation is essential. Serum or plasma urea nitroge n measurement (mass/volume)Ordered By: Delvis Maldonado on 06-26-2023 Urea nitrogen [Mass/Vol] 22 mg/dL 7-18 [facility] Thin prep Papanicolaou smear with manual screeningOrdered By: Delvis Maldonado on 06-26-2023 Thin prep Papanicolaou smear with manual screening 5 5-15 [facility] Basophil percentageOrdered B y: Karlos Hernandez on 06-15-2023 Basophil percentage 185 mg/dL 74-106 [facility] Basophil percentage 137 mmol/L 136-145 [facility] Basophil percentage 4.7 mmol/L 3.5-5.1 [facility] Basophil percentage 108 mmol/L 98-107 [facility] Chloride [Moles/Vol] 108 mmol/L 98-107 [facility] Glucose [Mass/Vol] 185 mg/dL 74-106 [facility] Comment on above: Fasting Glucose resu lt greater than or equal to 126 mg/dL suggests DIABETES MELLITUS per A.D.A. criteria. Potassium [Moles/Vol] 4.7 mmol/L 3.5-5.1 [facility] Sodium [Moles/Vol] 137 mmol/L 136-145 [facility] Laboratory - Chemistry and C hemistry - challengeOrdered By: Karlos Hernandez on 06-15-2023 CO2 [Moles/Vol] 24.0 mmol/L 21.0-32.0 [facility] Urea nitrogen/Creatinine [Mass ratio] 17.5 mg/mg 10-20 [facility] No Panel InformationOrdered By: Karlos Hernandez on 06-15-2023 Estimated Creatinine Clearance Calc 22.30 ml/min [facility] Estimated GFR (MDRD) Amer 27 mL/min >60 [facility] Comment on above: GFR Calc Estimated GFR (MDRD) Non-Af Amer 23 mL/min >60 [facility] Comment on above: Non- GFR Calc 23 mL/min >60 [facility] 27 mL/min >60 [facility] 22.30 ml/min [facility] 17.5 RATIO 10-20 [facility] 24.0 mmol/L 21.0-32.0 [facility] Serum or plasma calcium noam urement (mass/volume)Ordered By: Karlos Hernandez on 06-15-2023 Calcium [Mass/Vol] 8.3 mg/dL 8.5-10.1 [facility] Serum or plasma creatinine m easurement (mass/volume)Ordered By: Karlos Hernandez on 06-15-2023 Creatinine [Mass/Vol] 2.91 mg/dL 0.70-1.30 [facility] Comment on above: The validity of the calculated GFR & GFRAA in patients over 70 years has not been determined. Clinical correlation is essential. Serum or plasma urea nitroge n measurement (mass/volume)Ordered By: Karlos Hernandez on 06-15-2023 Urea nitrogen [Mass/Vol] 51 mg/dL 7-18 [facility] Thin prep Papanicolaou smear with manual screeningOrdered By: Karlos Hernandez on 06-15-2023 Thin prep Papanicolaou smear with manual screening 5 5-15 [facility] Absolute lymphocyte countOrd ered By: Karlos Hernandez on 06-14-2023 Lymphocytes Auto (Unsp spec) [#/Vol] 0.56 10*3/uL 0.83-4.51 [facility] Basophil percentageOrdered B y: Karlos Hernandez on 06-14-2023 Basophils (Bld) [#/Vol] 6.7 10*3/uL 4.4-11.0 [facility] Basophils (Bld) [#/Vol] 5.3 10*3/uL 2.0-7.7 [facility] Basophils/100 WBC (Bld) 0.7 % 0-1 [facility] Basophils/100 WBC (Bld) 79.1 % 47-70 [facility] Basophils/100 WBC (Bld) 1.8 % 0-5 [facility] Eosinophils/100 WBC (Bld) 1.8 % 0-5 [facility] Neutrophils (Bld) [#/Vol] 5.3 10*3/uL 2.0-7.7 [facility] Neutrophils/100 WBC (Bld) 79.1 % 47-70 [facility] WBC (Bld) [#/Vol] 6.7 10*3/uL 4.4-11.0 [facility] Blood erythrocytes count (nu mber/volume)Ordered By: Karlos Hernandez on 06-14-2023 RBC (Bld) [#/Vol] 3.95 10*6/uL 4.6-6.2 [facility] Blood hemoglobin measurement (mass/volume)Ordered By: Karlos Hernandez on 06-14-2023 Hemoglobin (Bld) [Mass/Vol] 11.7 g/dL 13.0-16.5 [facility] Blood lymphocytes/100 leukoc ytesOrdered By: Karlos Hernandez on 06-14-2023 Lymphocytes/100 WBC (Bld) 8.4 % 19-41 [facility] Blood manual differential co mment interpretation (narrative result)Ordered By: Karlos Hernandez on 06-14-2023 Manual differential comment Fred (Bld) [Interp] SCANNED [facility] Comment on above: LYMPHOPENIA NOTED Blood monocytes/100 leukocyt esOrdered By: Karlos Hernandez on 06-14-2023 Monocytes/100 WBC (Bld) 9.0 % 0-10 [facility] Blood platelet mean volumeOr dered By: Karlos Hernandez on 06-14-2023 Platelet mean volume (Bld) [Entitic vol] 9.8 fL 6.2-12.0 [facility] Determination of erythrocyte mean corpuscular volume (MCV)Ordered By: Karlos Hernandez on 06-14-2023 MCV (RBC) [Entitic vol] 92.7 fL 80-94 [facility] Hematocrit Auto (Bld) [Volum e fraction]Ordered By: Karlos Hernandez on 06-14-2023 Hematocrit (Bld) [Volume fraction] 36.6 % 40-54 [facility] Laboratory - Hematology and Cell countsOrdered By: Karlos Hernandez on 06-14-2023 Erythrocyte distribution width (RBC) [Entitic vol] 43.4 fL 35.1-43.9 [facility] Erythrocyte distribution width (RBC) [Ratio] 12.7 % 11.6-14.6 [facility] Immature granulocytes/100 WBC (Bld) 1.000 % 0.0-0.9 [facility] Comment on above: IG% - Immature Granu locytes (promyelocytes, myelocytes and metamyelocytes) > 1% indicates that a LEFT SHIFT is Present. MCH (RBC) [Entitic mass] 29.6 pg 27.0-32.0 [facility] Nucleated RBC/100 WBC (Bld) [Ratio] 0 % 0-5 [facility] MCHC Auto (RBC) [Mass/Vol]Or dered By: Karlos Hernandez on 06-14-2023 MCHC (RBC) [Mass/Vol] 32.0 g/dL 32-36 [facility] No Panel InformationOrdered By: Ajay Staley on 06-14-2023 Thyroid Stimulating Hormone (TSH) 2.54 uIU/mL 0.358-3.74 [facility] 2.54 uIU/mL 0.358-3.74 [facility] No Panel InformationOrdered By: Karlos Hernandez on 06-14-2023 29.6 pg 27.0-32.0 [facility] 12.7 % 11.6-14.6 [facility] 43.4 fl 35.1-43.9 [facility] 1.000 % 0.0-0.9 [facility] 0 % 0-5 [facility] Platelets bldOrdered By: Colleen Hernandez on 06-14-2023 Platelets (Bld) [#/Vol] 241 10*3/uL 150-450 [facility] Basophil percentageOrdered B y: Anju Alexis on 06-12-2023 Basophil percentage 0-5 SEEN /hpf 0-5 [facility] Basophil percentage 7.1 g/dL 6.4-8.2 [facility] Basophil percentage 0.60 mg/dL 0.20-1.00 [facility] Bilirubin [Mass/Vol] 0.60 mg/dL 0.20-1.00 [facility] Comment on above: For patients on eltr ombopag therapy, use of Dimension [place] TBIL is not recommended. Protein [Mass/Vol] 7.1 g/dL 6.4-8.2 [facility] Bilirubin Test strip Ql (U)O rdered By: Anju Alexis on 06-12-2023 Bilirubin Ql (U) Negative Negative [facility] Direct bilirubinOrdered By: Anju Alexis on 06-12-2023 Bilirubin.direct [Mass/Vol] 0.30 mg/dL 0.00-0.30 [facility] Ketones Test strip Ql (U)Ord ered By: Anju Alexis on 06-12-2023 Ketones Ql (U) 15 mg/dl Negative [facility] Laboratory - Chemistry and C hemistry - challengeOrdered By: Anju Alexis on 06-12-2023 ALP [Catalytic activity/Vol] 153 U/L 45-117 [facility] ALT [Catalytic activity/Vol] 41 U/L 16-61 [facility] Globulin (S) [Mass/Vol] 4.5 g/dL 2.2-4.2 [facility] Mucus LM Ql (Urine sed)Order ed By: Anju Alexis on 06-12-2023 Mucus Ql (Urine sed) 0 SEEN /hpf [facility] Nitrite Test strip Ql (U)Ord ered By: Anju Alexis on 06-12-2023 Nitrite Ql (U) Negative Negative [facility] No Panel InformationOrdered By: Anju Alexis on 06-12-2023 Troponin I High Sensitivity 11 pg/mL 3.0-78.0 [facility] Comment on above: Please Note: [place] Units and Gender Specific Reference Ranges. For more information see Policy Stat Procedure [place] High Sensitivity Troponin (TNIH) and attachments. 4.5 g/dL 2.2-4.2 [facility] 11 pg/mL 3.0-78.0 [facility] 153 U/L 45-117 [facility] 41 U/L 16-61 [facility] Protein Test strip Ql (U)Ord ered By: Anju Alexis on 06-12-2023 Protein Ql (U) 30 mg/dl Negative [facility] Serum or plasma albumin noam urement (mass/volume)Ordered By: Anju Alexis on 06-12-2023 Albumin [Mass/Vol] 2.6 g/dL 3.2-5.0 [facility] Squamous epithelial cells de tection in urine sediment by light microscopyOrdered By: Anju Alexis on 06-12-2023 Epithelial cells.squamous LM Ql (Urine sed) 0 SEEN /hpf 0-5 [facility] Thin prep Papanicolaou smear with manual screeningOrdered By: Anju Alexis on 06-12-2023 Thin prep Papanicolaou smear with manual screening 22 U/L 15-37 [facility] Urine blood detectionOrdered By: Anju Alexis on 06-12-2023 RBC Ql (U) 150 /ul Negative [facility] RBC Ql (U) 0-5 SEEN /hpf 0-5 [facility] Urine clarityOrdered By: Mary Ellen Alexis on 06-12-2023 Clarity (U) Clear Clear [facility] Urine coarse granular cast d etectionOrdered By: Anju Alexis on 06-12-2023 Coarse Granular Casts LM Ql (Urine sed) COLLAR BAND CREASER [facility] Comment on above: Previous reported re sult: 5-10 SEEN /lpfEdited by: GABRIEL on 06/12/23:0825 AMENDED REPORT 06/12/23 0825 COARSE GRAN previously reported as: 5-10 SEEN /lpf Urine color determinationOrd ered By: Anju Alexis on 06-12-2023 Color (U) Yellow Yellow [facility] Urine glucose detectionOrder ed By: Anju Alexis on 06-12-2023 Glucose Ql (U) Normal mg/dl Normal [facility] Urine leukocyte esterase det ection by dipstickOrdered By: Anju Alexis on 06-12-2023 Leukocyte esterase Test strip Ql (U) Negative Negative [facility] Urine pHOrdered By: Anju Alexis on 06-12-2023 pH (U) 6.0 [pH] 5.0 - 8.0 [facility] Urine sediment bacteria coun t by microscopy (number/high power field)Ordered By: Anju Alexis on 06-12-2023 Bacteria LM.HPF (Urine sed) [#/Area] Not Reportable [facility] Urine sediment fine granular cast count by microscopy (number/low power field)Ordered By: Anju Alexis on 06-12-2023 Fine Granular Casts LM.LPF (Urine sed) [#/Area] 5-10 SEEN /lpf 0-5 [facility] Urine specific gravity measu rementOrdered By: Anju Alexis on 06-12-2023 Specific gravity (U) [Rel density] 1.020 1.002-1.03 0 [facility] Urobilinogen Auto test strip Ql (U)Ordered By: Anju Alexis on 06-12-2023 Urobilinogen Ql (U) Normal mg/dl Normal [facility] Absolute lymphocyte countOrd ered By: Israel Hagan on 06-07-2023 Lymphocytes Auto (Unsp spec) [#/Vol] 0.55 10*3/uL 0.83-4.51 [facility] Amorphous sediment detection in urine sediment by light microscopyOrdered By: Israel Hagan on 06-07-2023 Amorphous sediment LM Ql (Urine sed) 1+ URATE [facility] Basophil percentageOrdered B y: Israel Hagan on 06-07-2023 Basophil percentage 0 SEEN /hpf 0-5 [facility] Basophil percentage 158 mg/dL 74-106 [facility] Basophil percentage 137 mmol/L 136-145 [facility] Basophil percentage 4.2 mmol/L 3.5-5.1 [facility] Basophil percentage 107 mmol/L 98-107 [facility] Basophils (Bld) [#/Vol] 10.3 10*3/uL 4.4-11.0 [facility] Basophils (Bld) [#/Vol] 8.7 10*3/uL 2.0-7.7 [facility] Basophils/100 WBC (Bld) 0.4 % 0-1 [facility] Basophils/100 WBC (Bld) 84.7 % 47-70 [facility] Basophils/100 WBC (Bld) 0.3 % 0-5 [facility] Chloride [Moles/Vol] 107 mmol/L 98-107 [facility] Eosinophils/100 WBC (Bld) 0.3 % 0-5 [facility] Glucose [Mass/Vol] 158 mg/dL 74-106 [facility] Comment on above: Fasting Glucose resu lt greater than or equal to 126 mg/dL suggests DIABETES MELLITUS per A.D.A. criteria. Neutrophils (Bld) [#/Vol] 8.7 10*3/uL 2.0-7.7 [facility] Neutrophils/100 WBC (Bld) 84.7 % 47-70 [facility] Potassium [Moles/Vol] 4.2 mmol/L 3.5-5.1 [facility] Sodium [Moles/Vol] 137 mmol/L 136-145 [facility] WBC (Bld) [#/Vol] 10.3 10*3/uL 4.4-11.0 [facility] Bilirubin Test strip Ql (U)O rdered By: Israel Hagan on 06-07-2023 Bilirubin Ql (U) Negative Negative [facility] Blood erythrocytes count (nu mber/volume)Ordered By: Israel Hagan on 06-07-2023 RBC (Bld) [#/Vol] 4.64 10*6/uL 4.6-6.2 [facility] Blood hemoglobin measurement (mass/volume)Ordered By: Israel Hagan on 06-07-2023 Hemoglobin (Bld) [Mass/Vol] 13.8 g/dL 13.0-16.5 [facility] Blood lymphocytes/100 leukoc ytesOrdered By: Israel Hagan on 06-07-2023 Lymphocytes/100 WBC (Bld) 5.4 % 19-41 [facility] Blood manual differential co mment interpretation (narrative result)Ordered By: Israel Hagan on 06-07-2023 Manual differential comment Fred (Bld) [Interp] SCANNED [facility] Comment on above: LYMPHOPENIA NOTED Blood monocytes/100 leukocyt esOrdered By: Israel Hagan on 06-07-2023 Monocytes/100 WBC (Bld) 8.5 % 0-10 [facility] Blood platelet mean volumeOr dered By: Israel Hagan on 06-07-2023 Platelet mean volume (Bld) [Entitic vol] 9.5 fL 6.2-12.0 [facility] Determination of erythrocyte mean corpuscular volume (MCV)Ordered By: Israel Hagan on 06-07-2023 MCV (RBC) [Entitic vol] 93.8 fL 80-94 [facility] Hematocrit Auto (Bld) [Volum e fraction]Ordered By: Israel Hagan on 06-07-2023 Hematocrit (Bld) [Volume fraction] 43.5 % 40-54 [facility] Ketones Test strip Ql (U)Ord ered By: Israel Hagan on 06-07-2023 Ketones Ql (U) Negative Negative [facility] Laboratory - Chemistry and C hemistry - challengeOrdered By: Israel Hagan on 06-07-2023 CO2 [Moles/Vol] 27.0 mmol/L 21.0-32.0 [facility] Urea nitrogen/Creatinine [Mass ratio] 13.6 mg/mg 10-20 [facility] - Hematology and Cell countsOrdered By: Israel Hagan on 06-07-2023 Erythrocyte distribution width (RBC) [Entitic vol] 44.4 fL 35.1-43.9 [facility] Erythrocyte distribution width (RBC) [Ratio] 12.9 % 11.6-14.6 [facility] Immature granulocytes/100 WBC (Bld) 0.700 % 0.0-0.9 [facility] Comment on above: IG% - Immature Granu locytes (promyelocytes, myelocytes and metamyelocytes) > 1% indicates that a LEFT SHIFT is Present. MCH (RBC) [Entitic mass] 29.7 pg 27.0-32.0 [facility] Nucleated RBC/100 WBC (Bld) [Ratio] 0 % 0-5 [facility] MCHC Auto (RBC) [Mass/Vol]Or dered By: Israel Hagan on 06-07-2023 MCHC (RBC) [Mass/Vol] 31.7 g/dL 32-36 [facility] Mucus LM Ql (Urine sed)Order ed By: Israel Hagan on 06-07-2023 Mucus Ql (Urine sed) 0 SEEN /hpf [facility] Nitrite Test strip Ql (U)Ord ered By: Israel Hagan on 06-07-2023 Nitrite Ql (U) Negative Negative [facility] No Panel InformationOrdered By: Israel Hagan on 06-07-2023 Estimated Creatinine Clearance Calc 25.25 ml/min [facility] Estimated GFR (MDRD) Amer 31 mL/min >60 [facility] Comment on above: GFR Calc Estimated GFR (MDRD) Non-Af Amer 26 mL/min >60 [facility] Comment on above: Non- GFR Calc 29.7 pg 27.0-32.0 [facility] 12.9 % 11.6-14.6 [facility] 44.4 fl 35.1-43.9 [facility] 0.700 % 0.0-0.9 [facility] 0 % 0-5 [facility] 26 mL/min >60 [facility] 31 mL/min >60 [facility] 25.25 ml/min [facility] 13.6 RATIO 10-20 [facility] 27.0 mmol/L 21.0-32.0 [facility] Platelets bldOrdered By: Rio Hagan on 06-07-2023 Platelets (Bld) [#/Vol] 348 10*3/uL 150-450 [facility] Protein Test strip Ql (U)Ord ered By: Israel Hagan on 06-07-2023 Protein Ql (U) 30 mg/dl Negative [facility] Serum or plasma calcium noam urement (mass/volume)Ordered By: Israel Hagan on 06-07-2023 Calcium [Mass/Vol] 8.9 mg/dL 8.5-10.1 [facility] Serum or plasma creatinine m easurement (mass/volume)Ordered By: Israel Hagan on 06-07-2023 Creatinine [Mass/Vol] 2.57 mg/dL 0.70-1.30 [facility] Comment on above: The validity of the calculated GFR & GFRAA in patients over 70 years has not been determined. Clinical correlation is essential. Serum or plasma urea nitroge n measurement (mass/volume)Ordered By: Israel Hagan on 06-07-2023 Urea nitrogen [Mass/Vol] 35 mg/dL 7-18 [facility] Squamous epithelial cells de tection in urine sediment by light microscopyOrdered By: Israel Hagan on 06-07-2023 Epithelial cells.squamous LM Ql (Urine sed) 0-5 SEEN /hpf 0-5 [facility] Thin prep Papanicolaou smear with manual screeningOrdered By: Israel Hagan on 06-07-2023 Thin prep Papanicolaou smear with manual screening 3 5-15 [facility] Urine blood detectionOrdered By: Israel Hagan on 06-07-2023 RBC Ql (U) 150 /ul Negative [facility] RBC Ql (U) 5-10 SEEN /hpf 0-5 [facility] Urine clarityOrdered By: Rio Hagan on 06-07-2023 Clarity (U) Sl. Cloudy Clear [facility] Urine color determinationOrd ered By: Israel Hagan on 06-07-2023 Color (U) Yellow Yellow [facility] Urine glucose detectionOrder ed By: Israel Hagan on 06-07-2023 Glucose Ql (U) Normal mg/dl Normal [facility] Urine leukocyte esterase det ection by dipstickOrdered By: Israel Hagan on 06-07-2023 Leukocyte esterase Test strip Ql (U) Negative Negative [facility] Urine pHOrdered By: Israel Hagan on 06-07-2023 pH (U) 5.0 [pH] 5.0 - 8.0 [facility] Urine sediment bacteria coun t by microscopy (number/high power field)Ordered By: Israel Hagan on 06-07-2023 Bacteria LM.HPF (Urine sed) [#/Area] 0 /[HPF] None Seen [facility] Urine sediment fine granular cast count by microscopy (number/low power field)Ordered By: Israel Hagan on 06-07-2023 Fine Granular Casts LM.LPF (Urine sed) [#/Area] 0-5 SEEN /lpf 0-5 [facility] Urine specific gravity measu rementOrdered By: Israel Hagan on 06-07-2023 Specific gravity (U) [Rel density] 1.020 1.002-1.03 0 [facility] Urobilinogen Auto test strip Ql (U)Ordered By: Israel Hagan on 06-07-2023 Urobilinogen Ql (U) Normal mg/dl Normal [facility] Absolute lymphocyte countOrd ered By: Anju Alexis on 05-25-2023 Lymphocytes Auto (Unsp spec) [#/Vol] 0.88 10*3/uL 0.83-4.51 [facility] Basophil percentageOrdered B y: Anju Vanesa on 05-25-2023 Basophil percentage 132 mg/dL 74-106 [facility] Basophil percentage 7.4 g/dL 6.4-8.2 [facility] Basophil percentage 0.90 mg/dL 0.20-1.00 [facility] Basophil percentage 138 mmol/L 136-145 [facility] Basophil percentage 3.7 mmol/L 3.5-5.1 [facility] Basophil percentage 108 mmol/L 98-107 [facility] Basophils (Bld) [#/Vol] 8.8 10*3/uL 4.4-11.0 [facility] Basophils (Bld) [#/Vol] 6.9 10*3/uL 2.0-7.7 [facility] Basophils/100 WBC (Bld) 0.5 % 0-1 [facility] Basophils/100 WBC (Bld) 78.9 % 47-70 [facility] Bilirubin [Mass/Vol] 0.90 mg/dL 0.20-1.00 [facility] Comment on above: For patients on eltr ombopag therapy, use of Dimension [place] TBIL is not recommended. Chloride [Moles/Vol] 108 mmol/L 98-107 [facility] Eosinophils/100 WBC (Bld) 0.5 % 0-5 [facility] Glucose [Mass/Vol] 132 mg/dL 74-106 [facility] Comment on above: Fasting Glucose resu lt greater than or equal to 126 mg/dL suggests DIABETES MELLITUS per A.D.A. criteria. Neutrophils (Bld) [#/Vol] 6.9 10*3/uL 2.0-7.7 [facility] Neutrophils/100 WBC (Bld) 78.9 % 47-70 [facility] Potassium [Moles/Vol] 3.7 mmol/L 3.5-5.1 [facility] Protein [Mass/Vol] 7.4 g/dL 6.4-8.2 [facility] Sodium [Moles/Vol] 138 mmol/L 136-145 [facility] WBC (Bld) [#/Vol] 8.8 10*3/uL 4.4-11.0 [facility] Blood erythrocytes count (nu mber/volume)Ordered By: Anju Alexis on 05-25-2023 RBC (Bld) [#/Vol] 5.12 10*6/uL 4.6-6.2 [facility] Blood hemoglobin measurement (mass/volume)Ordered By: Anju Alexis on 05-25-2023 Hemoglobin (Bld) [Mass/Vol] 15.4 g/dL 13.0-16.5 [facility] Blood lymphocytes/100 leukoc ytesOrdered By: Anju Alexis on 05-25-2023 Lymphocytes/100 WBC (Bld) 10.0 % 19-41 [facility] Blood monocytes/100 leukocyt esOrdered By: Anju Alexis on 05-25-2023 Monocytes/100 WBC (Bld) 9.8 % 0-10 [facility] Blood platelet mean volumeOr dered By: Anju Alexis on 05-25-2023 Platelet mean volume (Bld) [Entitic vol] 10.4 fL 6.2-12.0 [facility] COVID-19 virus antigen assay Ordered By: Anju Alexis on 05-25-2023 SARS-CoV-2 (COVID-19) Ag IA.rapid Ql (Resp) [facility] SARS-CoV-2 (COVID-19) Ag IA.rapid Ql (Resp) [facility] Determination of erythrocyte mean corpuscular volume (MCV)Ordered By: Anju Alexis on 05-25-2023 MCV (RBC) [Entitic vol] 93.9 fL 80-94 [facility] Direct bilirubinOrdered By: Anju Alexis on 05-25-2023 Bilirubin.direct [Mass/Vol] 0.24 mg/dL 0.00-0.30 [facility] Hematocrit Auto (Bld) [Volum e fraction]Ordered By: Anju Alexis on 05-25-2023 Hematocrit (Bld) [Volume fraction] 48.1 % 40-54 [facility] Laboratory - Chemistry and C hemistry - challengeOrdered By: Anju Alexis on 05-25-2023 ALP [Catalytic activity/Vol] 66 U/L 45-117 [facility] ALT [Catalytic activity/Vol] 21 U/L 16-61 [facility] CO2 [Moles/Vol] 25.0 mmol/L 21.0-32.0 [facility] Globulin (S) [Mass/Vol] 3.7 g/dL 2.2-4.2 [facility] Lipase [Catalytic activity/Vol] 34 U/L 13-75 [facility] Comment on above: Please note:LIPASE r evised reference range effective 22. New Lipase methodology. Expected to produce lower values than the previous assay method. NEW Reference Range: 13 - 75 U/L Urea nitrogen/Creatinine [Mass ratio] 13.7 mg/mg 10-20 [facility] - Hematology and Cell countsOrdered By: Anju Alexis on 05-25-2023 Erythrocyte distribution width (RBC) [Entitic vol] 46.2 fL 35.1-43.9 [facility] Erythrocyte distribution width (RBC) [Ratio] 13.4 % 11.6-14.6 [facility] Immature granulocytes/100 WBC (Bld) 0.300 % 0.0-0.9 [facility] Comment on above: IG% - Immature Granu locytes (promyelocytes, myelocytes and metamyelocytes) > 1% indicates that a LEFT SHIFT is Present. MCH (RBC) [Entitic mass] 30.1 pg 27.0-32.0 [facility] Nucleated RBC/100 WBC (Bld) [Ratio] 0 % 0-5 [facility] MCHC Auto (RBC) [Mass/Vol]Or dered By: Anju Alexis on 05-25-2023 MCHC (RBC) [Mass/Vol] 32.0 g/dL 32-36 [facility] No Panel InformationOrdered By: Anju Alexis on 05-25-2023 Troponin I High Sensitivity 6 pg/mL 3.0-78.0 [facility] Comment on above: Please Note: [place] Units and Gender Specific Reference Ranges. For more information see Policy Stat Procedure [place] High Sensitivity Troponin (TNIH) and attachments. 6 pg/mL 3.0-78.0 [facility] D-Dimer Quantitative (PE/DVT) 0.35 FEU/ug/m 0.27-0.49 [facility] Comment on above: NORMAL D-Dimer level (<0.50) indicates no DVT or PE. Estimated Creatinine Clearance Calc 30.61 ml/min [facility] Estimated GFR (MDRD) Amer 39 mL/min >60 [facility] Comment on above: GFR Calc Estimated GFR (MDRD) Non-Af Amer 32 mL/min >60 [facility] Comment on above: Non- GFR Calc 30.1 pg 27.0-32.0 [facility] 13.4 % 11.6-14.6 [facility] 46.2 fl 35.1-43.9 [facility] 0.300 % 0.0-0.9 [facility] 0 % 0-5 [facility] 0.35 FEU/ug/m 0.27-0.49 [facility] 32 mL/min >60 [facility] 39 mL/min >60 [facility] 30.61 ml/min [facility] 13.7 RATIO 10-20 [facility] 3.7 g/dL 2.2-4.2 [facility] 34 U/L 13-75 [facility] 66 U/L 45-117 [facility] 21 U/L 16-61 [facility] 25.0 mmol/L 21.0-32.0 [facility] Platelets bldOrdered By: Mary Ellen Alexis on 05-25-2023 Platelets (Bld) [#/Vol] 138 10*3/uL 150-450 [facility] Serum or plasma albumin noam urement (mass/volume)Ordered By: Anju Alexis on 05-25-2023 Albumin [Mass/Vol] 3.7 g/dL 3.2-5.0 [facility] Serum or plasma calcium noam urement (mass/volume)Ordered By: Anju Alexis on 05-25-2023 Calcium [Mass/Vol] 8.6 mg/dL 8.5-10.1 [facility] Serum or plasma creatinine m easurement (mass/volume)Ordered By: Anju Alexis on 05-25-2023 Creatinine [Mass/Vol] 2.12 mg/dL 0.70-1.30 [facility] Comment on above: The validity of the calculated GFR & GFRAA in patients over 70 years has not been determined. Clinical correlation is essential. Serum or plasma urea nitroge n measurement (mass/volume)Ordered By: Anju Alexis on 05-25-2023 Urea nitrogen [Mass/Vol] 29 mg/dL 7-18 [facility] Thin prep Papanicolaou smear with manual screeningOrdered By: Anju Alexis on 05-25-2023 Thin prep Papanicolaou smear with manual screening 15 U/L 15-37 [facility] Thin prep Papanicolaou smear with manual screening 5 5-15 [facility] Absolute lymphocyte countOrd ered By: Delvis Maldonado on 03-14-2023 Lymphocytes Auto (Unsp spec) [#/Vol] 1.12 10*3/uL 0.83-4.51 [facility] Basophil percentageOrdered B y: Delvis Maldonado on 03-14-2023 Basophils/100 WBC (Bld) 1.4 % 0-1 [facility] Bilirubin [Mass/Vol] 0.40 mg/dL 0.20-1.00 [facility] Comment on above: For patients on eltr ombopag therapy, use of Dimension [place] TBIL is not recommended. Chloride [Moles/Vol] 113 mmol/L 98-107 [facility] Cholesterol [Mass/Vol] 209 mg/dL <200 [facility] Comment on above: <200 mg/dL Desirable 200-240 mg/dL Borderline >240 mg/dL High Risk Eosinophils/100 WBC (Bld) 4.6 % 0-5 [facility] Glucose [Mass/Vol] 98 mg/dL 74-106 [facility] Neutrophils (Bld) [#/Vol] 2.6 10*3/uL 2.0-7.7 [facility] Neutrophils/100 WBC (Bld) 59.0 % 47-70 [facility] Potassium [Moles/Vol] 4.7 mmol/L 3.5-5.1 [facility] Protein [Mass/Vol] 7.0 g/dL 6.4-8.2 [facility] Sodium [Moles/Vol] 142 mmol/L 136-145 [facility] Triglyceride [Mass/Vol] 97 mg/dL <199 [facility] Comment on above: The drugs N-Acetylcy steine and Metamizole may falsely depress this assay.Serum Triglycerides Reference Interval Normal <150 mg/dL Borderline high 150 - 199 mg/dL High 200 - 499 mg/dL Very High > or = 500 mg/dL WBC (Bld) [#/Vol] 4.4 10*3/uL 4.4-11.0 [facility] Blood erythrocytes count (nu mber/volume)Ordered By: Delvis Maldonado on 03-14-2023 RBC (Bld) [#/Vol] 4.92 10*6/uL 4.6-6.2 [facility] Blood hemoglobin measurement (mass/volume)Ordered By: Delvis Maldonado on 03-14-2023 Hemoglobin (Bld) [Mass/Vol] 14.7 g/dL 13.0-16.5 [facility] Blood lymphocytes/100 leukoc ytesOrdered By: Delvis Maldonado on 03-14-2023 Lymphocytes/100 WBC (Bld) 25.6 % 19-41 [facility] Blood monocytes/100 leukocyt esOrdered By: Delvis Maldonado on 03-14-2023 Monocytes/100 WBC (Bld) 8.7 % 0-10 [facility] Blood platelet mean volumeOr dered By: Delvis Maldonado on 03-14-2023 Platelet mean volume (Bld) [Entitic vol] 10.5 fL 6.2-12.0 [facility] Determination of erythrocyte mean corpuscular volume (MCV)Ordered By: Delvis Maldonado on 03-14-2023 MCV (RBC) [Entitic vol] 94.5 fL 80-94 [facility] Hematocrit Auto (Bld) [Volum e fraction]Ordered By: Delvis Maldonado on 03-14-2023 Hematocrit (Bld) [Volume fraction] 46.5 % 40-54 [facility] Laboratory - Chemistry and C hemistry - challengeOrdered By: Delvis Maldonado on 03-14-2023 ALP [Catalytic activity/Vol] 71 U/L 45-117 [facility] ALT [Catalytic activity/Vol] 22 U/L 16-61 [facility] CO2 [Moles/Vol] 29.0 mmol/L 21.0-32.0 [facility] Globulin (S) [Mass/Vol] 3.4 g/dL 2.2-4.2 [facility] Urea nitrogen/Creatinine [Mass ratio] 11.7 mg/mg 10-20 [facility] Laboratory - Hematology and Cell countsOrdered By: Delvis Maldonado on 03-14-2023 Erythrocyte distribution width (RBC) [Entitic vol] 47.6 fL 35.1-43.9 [facility] Erythrocyte distribution width (RBC) [Ratio] 13.7 % 11.6-14.6 [facility] Immature granulocytes/100 WBC (Bld) 0.700 % 0.0-0.9 [facility] Comment on above: IG% - Immature Granu locytes (promyelocytes, myelocytes and metamyelocytes) > 1% indicates that a LEFT SHIFT is Present. MCH (RBC) [Entitic mass] 29.9 pg 27.0-32.0 [facility] Nucleated RBC/100 WBC (Bld) [Ratio] 0 % 0-5 [facility] MCHC Auto (RBC) [Mass/Vol]Or dered By: Delvis Maldonado on 03-14-2023 MCHC (RBC) [Mass/Vol] 31.6 g/dL 32-36 [facility] No Panel InformationOrdered By: Delvis Maldonado on 03-14-2023 Estimated GFR (MDRD) Amer 39 mL/min >60 [facility] Comment on above: GFR Calc Estimated GFR (MDRD) Non-Af Amer 32 mL/min >60 [facility] Comment on above: Non- GFR Calc Prostate Specific Antigen Total 4.89 ng/mL 0.0-4.0 [facility] Comment on above: This test was perfor med using the TPSA assay method for the[employer] chemistry system. Values obtained with differentassay methods cannot be used interchangably.When changing PSA assays in the course of monitoring apatient, additional sequential testing should be carriedout to confirm baseline values. Thyroid Stimulating Hormone (TSH) 3.15 uIU/mL 0.358-3.74 [facility] Urine Microalbumin/Creatinine Ratio 42.8 mg/g CRE <30 [facility] Platelets bldOrdered By: Ginna Maldonado on 03-14-2023 Platelets (Bld) [#/Vol] 144 10*3/uL 150-450 [facility] Serum or plasma albumin noam urement (mass/volume)Ordered By: Delvis Maldonado on 03-14-2023 Albumin [Mass/Vol] 3.6 g/dL 3.2-5.0 [facility] Serum or plasma albumin/glob ulin mass ratioOrdered By: Delvis Maldonado on 03-14-2023 Albumin/Globulin [Mass ratio] 1.1 {ratio} 0.9-2.4 [facility] Serum or plasma calcium noam urement (mass/volume)Ordered By: Delvis Maldonado on 03-14-2023 Calcium [Mass/Vol] 8.6 mg/dL 8.5-10.1 [facility] Serum or plasma cholesterol in HDL measurement (mass/volume)Ordered By: Delvis Maldonado on 03-14-2023 Cholesterol in HDL [Mass/Vol] 72 mg/dL >40 [facility] Comment on above: The drugs N-Acetylcy steine and Metamizole may falsely depress this assay. Reference Range HDL <40 mg/dL Low HDL Cholesterol HDL >or= 60 mg/dL High HDL Cholesterol Serum or plasma cholesterol in VLDL measurement (mass/volume)Ordered By: Delvis Maldonado on 03-14-2023 Cholesterol in VLDL [Mass/Vol] 19 mg/dL 5-40 [facility] Serum or plasma creatinine m easurement (mass/volume)Ordered By: Delvis Maldonado on 03-14-2023 Creatinine [Mass/Vol] 2.14 mg/dL 0.70-1.30 [facility] Comment on above: The validity of the calculated GFR & GFRAA in patients over 70 years has not been determined. Clinical correlation is essential. Serum or plasma low density lipoprotein (LDL) cholesterol measurement (mass/volume)Ordered By: Delvis Maldonado on 03-14-2023 Cholesterol in LDL [Mass/Vol] 118 mg/dL 0-130 [facility] Serum or plasma urea nitroge n measurement (mass/volume)Ordered By: Delvsi Maldonado on 03-14-2023 Urea nitrogen [Mass/Vol] 25 mg/dL 7-18 [facility] Thin prep Papanicolaou smear with manual screeningOrdered By: Delvis Maldonado on 03-14-2023 Thin prep Papanicolaou smear with manual screening 16 U/L 15-37 [facility] Thin prep Papanicolaou smear with manual screening 0 5-15 [facility] Thin prep Papanicolaou smear with manual screening 53.9 mg/L NO RANGE EST. [facility] Urine creatinine measurement (mass/volume)Ordered By: Delvis Maldonado on 03-14-2023 Creatinine (U) [Mass/Vol] 126.00 mg/dL NO RANGE EST. [facility] Whole blood hemoglobin A1c/t otal hemoglobin ratio (mass fraction)Ordered By: Delvis Maldonado on 03-14-2023 HbA1c (Bld) [Mass fraction] 6.0 % 3.8-5.6 [facility] Comment on above: Normal < 5.7 % Predi abetic 5.7 - 6.4 % Diabetic >or= 6.5 % Please note range changes. Absolute lymphocyte countOrd ered By: Dr. Barber on 02-12-2023 Lymphocytes Auto (Unsp spec) [#/Vol] 1.01 10*3/uL 0.83-4.51 [facility] Basophil percentageOrdered B y: Dr. Barber on 02-12-2023 Basophils/100 WBC (Bld) 1.1 % 0-1 [facility] Bilirubin [Mass/Vol] 0.40 mg/dL 0.20-1.00 [facility] Comment on above: For patients on eltr ombopag therapy, use of Dimension [place] TBIL is not recommended. Chloride [Moles/Vol] 109 mmol/L 98-107 [facility] Eosinophils/100 WBC (Bld) 4.6 % 0-5 [facility] Glucose [Mass/Vol] 95 mg/dL 74-106 [facility] Neutrophils (Bld) [#/Vol] 2.9 10*3/uL 2.0-7.7 [facility] Neutrophils/100 WBC (Bld) 62.1 % 47-70 [facility] Potassium [Moles/Vol] 4.4 mmol/L 3.5-5.1 [facility] Protein [Mass/Vol] 7.2 g/dL 6.4-8.2 [facility] Sodium [Moles/Vol] 141 mmol/L 136-145 [facility] WBC (Bld) [#/Vol] 4.6 10*3/uL 4.4-11.0 [facility] Blood erythrocytes count (nu mber/volume)Ordered By: Dr. Barber on 02-12-2023 RBC (Bld) [#/Vol] 5.04 10*6/uL 4.6-6.2 [facility] Blood hemoglobin measurement (mass/volume)Ordered By: Dr. Barber on 02-12-2023 Hemoglobin (Bld) [Mass/Vol] 15.1 g/dL 13.0-16.5 [facility] Blood lymphocytes/100 leukoc ytesOrdered By: Dr. Barber on 02-12-2023 Lymphocytes/100 WBC (Bld) 22.0 % 19-41 [facility] Blood monocytes/100 leukocyt esOrdered By: Dr. Barber on 02-12-2023 Monocytes/100 WBC (Bld) 9.8 % 0-10 [facility] Blood platelet mean volumeOr dered By: Dr. Barber on 02-12-2023 Platelet mean volume (Bld) [Entitic vol] 10.2 fL 6.2-12.0 [facility] Determination of erythrocyte mean corpuscular volume (MCV)Ordered By: Dr. Barber on 02-12-2023 MCV (RBC) [Entitic vol] 92.1 fL 80-94 [facility] Hematocrit Auto (Bld) [Volum e fraction]Ordered By: Dr. Barber on 02-12-2023 Hematocrit (Bld) [Volume fraction] 46.4 % 40-54 [facility] Laboratory - Chemistry and C hemistry - challengeOrdered By: Dr. Barber on 02-12-2023 ALP [Catalytic activity/Vol] 77 U/L 45-117 [facility] ALT [Catalytic activity/Vol] 25 U/L 16-61 [facility] CO2 [Moles/Vol] 26.0 mmol/L 21.0-32.0 [facility] Globulin (S) [Mass/Vol] 3.5 g/dL 2.2-4.2 [facility] Urea nitrogen/Creatinine [Mass ratio] 18.9 mg/mg 10-20 [facility] Laboratory - Hematology and Cell countsOrdered By: Dr. Barber on 02-12-2023 Erythrocyte distribution width (RBC) [Entitic vol] 45.5 fL 35.1-43.9 [facility] Erythrocyte distribution width (RBC) [Ratio] 13.5 % 11.6-14.6 [facility] Immature granulocytes/100 WBC (Bld) 0.400 % 0.0-0.9 [facility] Comment on above: IG% - Immature Granu locytes (promyelocytes, myelocytes and metamyelocytes) > 1% indicates that a LEFT SHIFT is Present. MCH (RBC) [Entitic mass] 30.0 pg 27.0-32.0 [facility] Nucleated RBC/100 WBC (Bld) [Ratio] 0 % 0-5 [facility] MCHC Auto (RBC) [Mass/Vol]Or dered By: Dr. Barber on 02-12-2023 MCHC (RBC) [Mass/Vol] 32.5 g/dL 32-36 [facility] No Panel InformationOrdered By: Dr. Barber on 02-12-2023 Estimated GFR (MDRD) Amer 39 mL/min >60 [facility] Comment on above: GFR Calc Estimated GFR (MDRD) Non-Af Amer 32 mL/min >60 [facility] Comment on above: Non- GFR Calc Platelets bldOrdered By: Dr. Barber on 02-12-2023 Platelets (Bld) [#/Vol] 147 10*3/uL 150-450 [facility] Serum or plasma albumin noam urement (mass/volume)Ordered By: Dr. Barber on 02-12-2023 Albumin [Mass/Vol] 3.7 g/dL 3.2-5.0 [facility] Serum or plasma albumin/glob ulin mass ratioOrdered By: Dr. Barber on 02-12-2023 Albumin/Globulin [Mass ratio] 1.1 {ratio} 0.9-2.4 [facility] Serum or plasma calcium noam urement (mass/volume)Ordered By: Dr. Barber on 02-12-2023 Calcium [Mass/Vol] 8.6 mg/dL 8.5-10.1 [facility] Serum or plasma creatinine m easurement (mass/volume)Ordered By: Dr. Barber on 02-12-2023 Creatinine [Mass/Vol] 2.12 mg/dL 0.70-1.30 [facility] Comment on above: The validity of the calculated GFR & GFRAA in patients over 70 years has not been determined. Clinical correlation is essential. Serum or plasma urea nitroge n measurement (mass/volume)Ordered By: Dr. Barber on 02-12-2023 Urea nitrogen [Mass/Vol] 40 mg/dL 7-18 [facility] Thin prep Papanicolaou smear with manual screeningOrdered By: Dr. Barber on 02-12-2023 Thin prep Papanicolaou smear with manual screening 18 U/L 15-37 [facility] Thin prep Papanicolaou smear with manual screening 6 5-15 [facility] Basophil percentageOrdered B y: Dr. Maldonado on 09-11-2022 Bilirubin [Mass/Vol] 0.40 mg/dL 0.20-1.00 [facility] Comment on above: For patients on eltr ombopag therapy, use of Dimension [place] TBIL is not recommended. Chloride [Moles/Vol] 110 mmol/L 98-107 [facility] Cholesterol [Mass/Vol] 210 mg/dL <200 [facility] Comment on above: <200 mg/dL Desirable 200-240 mg/dL Borderline >240 mg/dL High Risk Glucose [Mass/Vol] 106 mg/dL 74-106 [facility] Comment on above: Fasting Glucose resu lt from 100 to 125 mg/dL suggests IMPAIRED HOMEOSTASIS per A.D.A. criteria. Potassium [Moles/Vol] 4.5 mmol/L 3.5-5.1 [facility] Protein [Mass/Vol] 6.8 g/dL 6.4-8.2 [facility] Sodium [Moles/Vol] 142 mmol/L 136-145 [facility] Triglyceride [Mass/Vol] 80 mg/dL <199 [facility] Comment on above: The drugs N-Acetylcy steine and Metamizole may falsely depress this assay.Serum Triglycerides Reference Interval Normal <150 mg/dL Borderline high 150 - 199 mg/dL High 200 - 499 mg/dL Very High > or = 500 mg/dL Laboratory - Chemistry and C hemistry - challengeOrdered By: Dr. Maldonado on 09-11-2022 ALP [Catalytic activity/Vol] 67 U/L 45-117 [facility] ALT [Catalytic activity/Vol] 25 U/L 16-61 [facility] CO2 [Moles/Vol] 29.0 mmol/L 21.0-32.0 [facility] Globulin (S) [Mass/Vol] 3.3 g/dL 2.2-4.2 [facility] Urea nitrogen/Creatinine [Mass ratio] 13.9 mg/mg 10-20 [facility] No Panel InformationOrdered By: Dr. Maldonado on 09-11-2022 Estimated GFR (MDRD) Amer 38 mL/min >60 [facility] Comment on above: GFR Calc Estimated GFR (MDRD) Non-Af Amer 32 mL/min >60 [facility] Comment on above: Non- GFR Calc Parathyroid Hormone (Intact) 71.3 pg/mL 18.4-80.1 [facility] Prostate Specific Antigen Screen 4.59 ng/mL 0.00-4.00 [facility] Comment on above: This test was perfor med using the TPSA assay method for the[facility] system. Values obtained with differentassay methods cannot be used interchangably.When changing PSA assays in the course of monitoring apatient, additional sequential testing should be carriedout to confirm baseline values. Urine Microalbumin/Creatinine Ratio 33.9 mg/g CRE <30 [facility] Serum or plasma albumin noam urement (mass/volume)Ordered By: Dr. Maldonado on 09-11-2022 Albumin [Mass/Vol] 3.5 g/dL 3.2-5.0 [facility] Serum or plasma albumin/glob ulin mass ratioOrdered By: Dr. Maldonado on 09-11-2022 Albumin/Globulin [Mass ratio] 1.1 {ratio} 0.9-2.4 [facility] Serum or plasma calcium noam urement (mass/volume)Ordered By: Dr. Maldonado on 09-11-2022 Calcium [Mass/Vol] 8.6 mg/dL 8.5-10.1 [facility] Serum or plasma cholesterol in HDL measurement (mass/volume)Ordered By: Dr. Maldonado on 09-11-2022 Cholesterol in HDL [Mass/Vol] 72 mg/dL >40 [facility] Comment on above: The drugs N-Acetylcy steine and Metamizole may falsely depress this assay. Reference Range HDL <40 mg/dL Low HDL Cholesterol HDL >or= 60 mg/dL High HDL Cholesterol Serum or plasma cholesterol in VLDL measurement (mass/volume)Ordered By: Dr. Maldonado on 09-11-2022 Cholesterol in VLDL [Mass/Vol] 16 mg/dL 5-40 [facility] Serum or plasma creatinine m easurement (mass/volume)Ordered By: Dr. Maldonado on 09-11-2022 Creatinine [Mass/Vol] 2.16 mg/dL 0.70-1.30 [facility] Comment on above: The validity of the calculated GFR & GFRAA in patients over 70 years has not been determined. Clinical correlation is essential. Serum or plasma low density lipoprotein (LDL) cholesterol measurement (mass/volume)Ordered By: Dr. Maldonado on 09-11-2022 Cholesterol in LDL [Mass/Vol] 122 mg/dL 0-130 [facility] Serum or plasma urea nitroge n measurement (mass/volume)Ordered By: Dr. Maldonado on 09-11-2022 Urea nitrogen [Mass/Vol] 30 mg/dL 7-18 [facility] Thin prep Papanicolaou smear with manual screeningOrdered By: Dr. Maldonado on 09-11-2022 Thin prep Papanicolaou smear with manual screening 18 U/L 15-37 [facility] Thin prep Papanicolaou smear with manual screening 3 5-15 [facility] Thin prep Papanicolaou smear with manual screening 50.5 mg/L NO RANGE EST. [facility] Urine creatinine measurement (mass/volume)Ordered By: Dr. Maldonado on 09-11-2022 Creatinine (U) [Mass/Vol] 149.00 mg/dL NO RANGE EST. [facility] Whole blood hemoglobin A1c/t otal hemoglobin ratio (mass fraction)Ordered By: Dr. Maldonado on 09-11-2022 HbA1c (Bld) [Mass fraction] 5.9 % 3.8-5.6 [facility] Comment on above: Normal < 5.7 % Predi abetic 5.7 - 6.4 % Diabetic >or= 6.5 % Please note range changes. Absolute lymphocyte countOrd ered By: Dr. Gary on 08-14-2022 Lymphocytes Auto (Unsp spec) [#/Vol] 1.11 10*3/uL 0.83-4.51 [facility] Basophil percentageOrdered B y: Dr. Gary on 08-14-2022 Basophils/100 WBC (Bld) 1.2 % 0-1 [facility] Bilirubin [Mass/Vol] 0.40 mg/dL 0.20-1.00 [facility] Comment on above: For patients on eltr ombopag therapy, use of Dimension [place] TBIL is not recommended. Chloride [Moles/Vol] 107 mmol/L 98-107 [facility] Cholesterol [Mass/Vol] 202 mg/dL <200 [facility] Comment on above: <200 mg/dL Desirable 200-240 mg/dL Borderline >240 mg/dL High Risk Eosinophils/100 WBC (Bld) 6.1 % 0-5 [facility] Glucose [Mass/Vol] 113 mg/dL 74-106 [facility] Comment on above: Fasting Glucose resu lt from 100 to 125 mg/dL suggests IMPAIRED HOMEOSTASIS per A.D.A. criteria. Neutrophils (Bld) [#/Vol] 2.3 10*3/uL 2.0-7.7 [facility] Neutrophils/100 WBC (Bld) 56.6 % 47-70 [facility] Potassium [Moles/Vol] 4.4 mmol/L 3.5-5.1 [facility] Protein [Mass/Vol] 7.1 g/dL 6.4-8.2 [facility] Sodium [Moles/Vol] 143 mmol/L 136-145 [facility] Triglyceride [Mass/Vol] 85 mg/dL <199 [facility] Comment on above: The drugs N-Acetylcy steine and Metamizole may falsely depress this assay.Serum Triglycerides Reference Interval Normal <150 mg/dL Borderline high 150 - 199 mg/dL High 200 - 499 mg/dL Very High > or = 500 mg/dL WBC (Bld) [#/Vol] 4.1 10*3/uL 4.4-11.0 [facility] Blood erythrocytes count (nu mber/volume)Ordered By: Dr. Gary on 08-14-2022 RBC (Bld) [#/Vol] 4.94 10*6/uL 4.6-6.2 [facility] Blood hemoglobin measurement (mass/volume)Ordered By: Dr. Gary on 08-14-2022 Hemoglobin (Bld) [Mass/Vol] 14.6 g/dL 13.0-16.5 [facility] Blood lymphocytes/100 leukoc ytesOrdered By: Dr. Gary on 08-14-2022 Lymphocytes/100 WBC (Bld) 27.1 % 19-41 [facility] Blood monocytes/100 leukocyt esOrdered By: Dr. Gary on 08-14-2022 Monocytes/100 WBC (Bld) 8.8 % 0-10 [facility] Blood platelet mean volumeOr dered By: Dr. Gary on 08-14-2022 Platelet mean volume (Bld) [Entitic vol] 10.0 fL 6.2-12.0 [facility] Determination of erythrocyte mean corpuscular volume (MCV)Ordered By: Dr. Gary on 08-14-2022 MCV (RBC) [Entitic vol] 92.7 fL 80-94 [facility] Direct bilirubinOrdered By: Dr. Gary on 08-14-2022 Bilirubin.direct [Mass/Vol] 0.11 mg/dL 0.00-0.30 [facility] Hematocrit Auto (Bld) [Volum e fraction]Ordered By: Dr. Gary on 08-14-2022 Hematocrit (Bld) [Volume fraction] 45.8 % 40-54 [facility] Laboratory - Chemistry and C hemistry - challengeOrdered By: Dr. Gary on 08-14-2022 ALP [Catalytic activity/Vol] 70 U/L 45-117 [facility] ALT [Catalytic activity/Vol] 26 U/L 16-61 [facility] CO2 [Moles/Vol] 29.0 mmol/L 21.0-32.0 [facility] Globulin (S) [Mass/Vol] 3.4 g/dL 2.2-4.2 [facility] Urea nitrogen/Creatinine [Mass ratio] 12.3 mg/mg 10-20 [facility] Laboratory - Hematology and Cell countsOrdered By: Dr. Gary on 08-14-2022 Erythrocyte distribution width (RBC) [Entitic vol] 45.6 fL 35.1-43.9 [facility] Erythrocyte distribution width (RBC) [Ratio] 13.5 % 11.6-14.6 [facility] Immature granulocytes/100 WBC (Bld) 0.200 % 0.0-0.9 [facility] Comment on above: IG% - Immature Granu locytes (promyelocytes, myelocytes and metamyelocytes) > 1% indicates that a LEFT SHIFT is Present. MCH (RBC) [Entitic mass] 29.6 pg 27.0-32.0 [facility] Nucleated RBC/100 WBC (Bld) [Ratio] 0 % 0-5 [facility] MCHC Auto (RBC) [Mass/Vol]Or dered By: Dr. Gary on 08-14-2022 MCHC (RBC) [Mass/Vol] 31.9 g/dL 32-36 [facility] No Panel InformationOrdered By: Dr. Gary on 08-14-2022 Estimated GFR (MDRD) Amer 40 mL/min >60 [facility] Comment on above: GFR Calc Estimated GFR (MDRD) Non-Af Amer 33 mL/min >60 [facility] Comment on above: Non- GFR Calc Platelets bldOrdered By: Dr. Gary on 08-14-2022 Platelets (Bld) [#/Vol] 168 10*3/uL 150-450 [facility] Serum or plasma albumin noam urement (mass/volume)Ordered By: Dr. Gary on 08-14-2022 Albumin [Mass/Vol] 3.7 g/dL 3.2-5.0 [facility] Serum or plasma albumin/glob ulin mass ratioOrdered By: Dr. Gary on 08-14-2022 Albumin/Globulin [Mass ratio] 1.1 {ratio} 0.9-2.4 [facility] Serum or plasma calcium noam urement (mass/volume)Ordered By: Dr. Gary on 08-14-2022 Calcium [Mass/Vol] 8.5 mg/dL 8.5-10.1 [facility] Serum or plasma cholesterol in HDL measurement (mass/volume)Ordered By: Dr. Gary on 08-14-2022 Cholesterol in HDL [Mass/Vol] 70 mg/dL >40 [facility] Comment on above: The drugs N-Acetylcy steine and Metamizole may falsely depress this assay. Reference Range HDL <40 mg/dL Low HDL Cholesterol HDL >or= 60 mg/dL High HDL Cholesterol Serum or plasma cholesterol in VLDL measurement (mass/volume)Ordered By: Dr. Gary on 08-14-2022 Cholesterol in VLDL [Mass/Vol] 17 mg/dL 5-40 [facility] Serum or plasma creatinine m easurement (mass/volume)Ordered By: Dr. Gary on 08-14-2022 Creatinine [Mass/Vol] 2.11 mg/dL 0.70-1.30 [facility] Comment on above: The validity of the calculated GFR & GFRAA in patients over 70 years has not been determined. Clinical correlation is essential. Serum or plasma low density lipoprotein (LDL) cholesterol measurement (mass/volume)Ordered By: Dr. Gary on 08-14-2022 Cholesterol in LDL [Mass/Vol] 115 mg/dL 0-130 [facility] Serum or plasma urea nitroge n measurement (mass/volume)Ordered By: Dr. Gary on 08-14-2022 Urea nitrogen [Mass/Vol] 26 mg/dL 7-18 [facility] Thin prep Papanicolaou smear with manual screeningOrdered By: Dr. Gary on 08-14-2022 Thin prep Papanicolaou smear with manual screening 19 U/L 15-37 [facility] Thin prep Papanicolaou smear with manual screening 7 5-15 [facility] SURGICAL PATHOLOGYon 022 Case Report Surgical Pathology R eport Case: [id number] Authorizing Provider: Sherry Guadarrama MD Collected: 07/31/2022 12:51 PM Ordering Location: Procedures Received: 07/31/2022 02:47 PM Pathologist: Juan Field MD, PhD Specimens: A) - RECTAL BIOPSY, distal rectal nodule B) - RECTAL POLYP [facility] FINAL DIAGNOSIS A. 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 B. Rectum, polyp, biopsy: - Hyperplastic polyp. [facility] Gross Description A. RECTAL BIOPSY Received in formalin are two pieces of mims, soft tissue aggregating to 0.8 x 0.2 x 0.2 cm. Totally submitted in formalin in one cassette. B. RECTAL POLYP Received in formalin is one piece of mims, soft tissue measuring 0.3 x 0.2 x 0.2 cm. Totally submitted in formalin in one cassette. Gross examination performed at [facility], [address] [place] [address] 07/31/2022 8:16 PM [facility] Performing Lab Diagnostic interpret ation performed at [facility], [address] [place] [address] CLIA# [id number] Poultry Service Technician: Deion Lion M.D. [facility] ANES POSTPROC EVALon 022 ANES POSTPROC EVAL HNO ID: [id number] Author: Latoya Dong MD Service: Anesthesiology Author Type: Anesthesiologist Type: Anesthesia Postprocedure Evaluation Filed: 07/31/2022 2:39 PM Note Text: POST ANESTHESIA EVALUATION NOTE : 1945 Procedure Summary Date: 07/31/22 Room / Location: Procedures Anesthesia Start: 1237 Anesthesia Stop: 1257 Procedure: SIGMOIDOSCOPY Diagnosis: Anal fissure Scheduled Providers: Sherry Guadarrama MD; Diony Arceo APRN.SODA MAKER; Latoya Dong MD Responsible Provider: Latoya Dong [...] July 31, 2022 TIME: 2:39 PM CSN: [id number] [facility] ANES PRE-OPon 07-31-2022 ANES PRE-OP HNO ID: [id number] Author: Latoya Dong MD Service: Anesthesiology Author Type: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 Start: 05-11-2025 End: 05-11-[address] Joseph Mora MD -Laboratory Work Phone: Start: 05-11-2025 End: 05-11-[address] Ruiz aGry MD -[facility] Work Phone: Start: 05-11-2025 End: 05-11-[address] Delvis Maldonado DO Work Phone: -[facility] Start: 05-11-2025 End: 05-11-2025 ambulatory Delvis Claudine Facility:[facility] Start: 05-03-2025 End: 05-03-[address] Delvis Maldonado DO Work Phone: -Laboratory Start: 05-03-2025 End: 05-03-[address] Monisha Yoon DO -Laboratory Work Phone: Start: 05-03-2025 End: 05-03-2025 ambulatory Monisha Yoon Facility:[facility] Start: 01-12-2025 End: 01-12-[address] Firda Barber MD -Laboratory Work Phone: Start: 01-12-2025 End: 01-12-2025 ambulatory Delvis [facility] Facility:[facility] Start: 01-02-2025 End: 01-02-2025 ambulatory [facility] Facility:[facility] Start: 09-30-2024 End: 09-30-2024 ambulatory [facility] Start: 09-28-2024 End: 09-28-2024 ambulatory [facility] Facility:[facility] Start: 08-26-2024 End: 08-26-2024 ambulatory [facility] Facility:[facility] Start: 07-15-2024 End: 07-15-2024 ambulatory [facility] Facility:[facility] Start: 12-06-2023 End: 12-06-[address] Delvis Maldonado Work Phone: [facility] Work Phone: Start: 12-06-2023 End: 12-06-[address] 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 Sonu Maldonado Work Phone: [facility] Work Phone: Start: 10-08-2023 Non-patient / Non-visit Dr. Sonu Maldonado Work Phone: [facility] Start: 10-08-2023 End: 10-08-[address] Delvis Maldonado Work Phone: [facility] Work Phone: Start: 10-08-2023 End: 10-08-[address] [facility] Work [facility]: Start: 09-18-2023 End: 09-18-[address] Delvis Maldonado Work Phone: [facility] Work Phone: Start: 09-18-2023 End: 09-18-2023 Dr. Delvis Maldonado Work Phone: [facility] Work Phone: Start: 09-13-2023 End: 09-13-[address] Delvis Maldonado Work Phone: [facility] Work Phone: Start: 09-13-2023 End: 09-13-[address] [facility] Maldonado [facility] Start: 09-13-2023 End: 09-13-2023 Dr. [facility]donado [facility] Start: 09-02-2023 End: 09-02-[address] Delvis Maldonado Work Phone: [facility] Work Phone: Start: 09-02-2023 End: 09-02-[address] Delvis Maldonado [facility] Work Phone: Start: 09-02-2023 End: 09-02-2023 Dr. Delvis Maldonado [facility] Work [facility] Start: 08-12-2023 End: 08-12-[address] Delvis Maldonado Work Phone: [facility] Work Phone: Start: 08-12-2023 End: 08-12-[address] [facility] Maldonado [facility] Start: 08-12-2023 End: 08-12-2023 Dr. Delvis Maldonado [facility] Start: 08-01-2023 End: 08-15-[address] Delvis Maldonado Work Phone: [facility] Work Phone: Start: 08-01-2023 End: 08-15-[address] Delvis Maldonado Work Phone: [facility] Work Phone: Start: 08-01-[address] Delvis Maldonado [facility] Work [facility] Start: 08-01-2023 End: 08-15-2023 Dr. Delvis Maldonado Work Phone: [facility] Work Phone: Start: 07-22-2023 End: 07-24-2023 Evaluation and management of inpatient Dr. Delvis Maldonado Work Phone: [facility] Work Phone: Start: 07-22-2023 End: 07-24-2023 Dr. Delvis Maldonado Work Phone: [facility] Work Phone: Start: 07-21-2023 Evaluation and management of inpatient Dr. Delvis Maldonado Work Phone: [facility] Work Phone: Start: 07-21-[address] Delvis Maldonado Work Phone: [facility] Work Phone: Start: 07-07-2023 End: 07-07-2023 Emergency department patient visit Dr. Delvis Maldonado Work Phone: [facility] Work Phone: Start: 07-07-2023 End: 07-07-2023 Dr. Delvis Maldonado Work Phone: [facility] Work Phone: Start: 06-27-2023 End: 06-27-[address] Delvis Maldonado Work Phone: [facility] Work Phone: Start: 06-27-2023 End: 06-27-[address] Del[facility] Maldonado [facility] Start: 06-27-[address] Delvis Maldonado Work Phone: [facility] Work Phone: Start: 06-27-2023 End: 06-27-2023 Dr. Delvis Maldonado Work Phone: [facility] Work Phone: Start: 06-26-2023 End: 06-26-[address] Delvis Maldonado Work Phone: [facility] Work Phone: Start: 06-26-2023 End: 06-26-[address] Delvis Maldonado Work Phone: [facility] Start: 06-26-2023 End: 06-26-2023 Dr. Delvis Maldonado Work Phone: [facility] Start: 06-20-2023 End: 06-20-[address] Delvis Maldonado Work Phone: [facility] Work Phone: Start: 06-20-2023 End: 06-20-2023 Dr. Delvis Maldonado Work Phone: [facility] Work Phone: Start: 06-15-2023 Non-patient / Non-visit Dr. Sonu Maldonado Work Phone: [facility] Work Phone: Start: 06-15-2023 Dr. Delvis porter Work Phone: [facility] Work Phone: Start: 06-14-2023 Non-patient / Non-visit Dr. Sonu Maldonado Work Phone: [facility] Work Phone: Start: 06-14-2023 Dr. Delvis porter Work Phone: [facility] Work Phone: Start: 06-13-2023 Non-patient / Non-visit Dr. Sonu Maldonado Work Phone: [facility] Work Phone: Start: 06-13-2023 Dr. Delvis porter Work Phone: [facility] Work Phone: Start: 06-12-2023 Dr. Delvis porter Work Phone: [facility] Start: 06-12-2023 Non-patient / Non-visit Dr. Sonu Maldonado Work Phone: [facility] Start: 06-12-2023 End: 06-15-2023 Evaluation and management of inpatient Dr. Delvis Maldonado Work Phone: [facility] Work Phone: Start: 06-12-2023 End: 06-15-2023 Dr. Delvis Maldonado Work Phone: [facility] Work Phone: Start: 06-07-2023 End: 06-07-2023 Emergency department patient visit Dr. Delvis Maldonado [facility] Start: 06-07-2023 End: 06-07-2023 Dr. Delvis Maldonado Work Phone: [facility]Emer[facility] Work Phone: Start: 06-05-[address] Delvis Maldonado [facility] Start: 05-25-2023 End: 05-25-2023 Emergency department patient visit Dr. Delvis Maldonado [facility] Start: 05-25-2023 End: 05-25-2023 Dr. Delvis Maldonado [facility]: Start: 03-14-2023 End: 03-14-[address] Delvis Maldonado Work Phone: [facility] Work Phone: Start: 03-14-2023 End: 03-14-[address] Delvis Maldonado [facility] Start: 02-14-2023 End: 02-14-[address] Delvis Maldonado Work Phone: [facility] Start: 02-12-2023 End: 02-12-[address] Delvis Maldonado Work Phone: [facility] Work Phone: Start: 02-12-2023 End: 02-12-[address] Del[facility] Maldonado [facility] Start: 11-29-2022 End: 11-29-[address] Delvis Maldonado Work Phone: [facility] Work Phone: Start: 11-29-2022 End: 11-29-[address] Del[facility] Maldonado [facility] Start: 09-11-2022 End: 09-11-[address] Delvis Maldonado Work Phone: [facility] Work Phone: Start: 09-11-2022 End: 09-11-[address] Delvis Maldonado Work Phone: [facility] Start: 08-15-2022 End: 08-15-[address] Delvis Maldonado Work Phone: [facility] Start: 08-14-2022 End: 08-14-[address] Delvis Maldonado Work Phone: [facility] Work Phone: Start: 08-14-2022 End: 08-14-[address] Delvis Maldonado Work Phone: [facility] Start: 07-31-2022 ambulatory LATOYA RIVERA CH SAPXENIA Facility:[facility] Start: 07-31-2022 End: 07-31-2022 Subsequent hospital visit by physician Sherry Guadarrama MD Work Phone: Procedures Comment on above: Anal fissure [K60.2] Start: 06-20-2022 End: 06-20-2022 ambulatory SHERRY GUADARRAMA Facility:[facility] Start: 06-20-2022 End: 06-20-2022 Patient encounter procedure Sherry Guadarrama MD Work Phone: Colorectal Surgery Comment on above: Anal fissure (Primar y Dx) Start: 06-14-2022 End: 06-14-2022 ambulatory CHRIS ORNELAS Facility:[facility] Start: 06-14-2022 End: 06-14-2022 Patient encounter procedure Chris Ornelas MD Work Phone: General Surgery Comment on above: Anal or rectal pain (Primary Dx); Mass of anus Start: 02-26-2022 End: 02-26-[address] [facility] Maldonado [facility] Start: 01-26-[address] Delvis childress Work Phone: [facility] Start: 11-23-2021 End: 11-23-[address] Delvis Maldonado Work Phone: [facility] Start: 11-21-2021 End: 11-21-[address] Delvis Maldonado Work Phone: [facility] Procedures Date Procedure Procedure Detail Performing Clinician Start: 05-27-2025 Osteoarthritis symptoms&funcjal status asses Marcos Hightower MD Work Phone: Start: 05-27-2025 Blood pressure withi n normal parameters - no follow-up required Marcos Hightower MD Work Phone: Start: 05-27-2025 BMI documented as ab ove normal parameters - follow-up documented Marcos Hightower MD Work Phone: Start: 05-27-2025 Current tobacco non- user cad cap copd pv dm Marcos Higthower MD Work Phone: Start: 05-27-2025 Documentation of cur rent medications Marcos Hightower MD Work Phone: Start: 05-27-2025 Pain assessment docu mented as negative - follow-up not required Marcos Hightower MD Work Phone: Start: 05-27-2025 LONG COMFORT COOL Kelley Hightower MD Work Phone: Start: 05-27-2025 Occupational therapy Uma Hightower MD Work Phone: Start: 05-27-2025 COMFORT COOL [facility]PLINT Marcos Hightower MD Work Phone: Start: 05-27-2025 [facility] [employer] Tiffanie Hightower MD Work Phone: Start: 05-11-2025 Assay of prostate sp ecific antigen total Dr. Delvis Maldonado DO Work Phone: Comment on above: This test was perfor med using the [employer] tPSA method. Measured values of a patient sample can vary depending on the testing procedure used. PSA values determined on patient samples by different testing procedures cannot be used interchangeably. If there is a change in PSA assays while monitoring therapy, sequential testing should be performed to confirm baseline values. Start: 05-03-2025 Serum inorganic phos phate measurement Dr. Delvis Maldonado DO Work Phone: Start: 05-03-2025 Urine microalbumin/creatinine ratio measurement Dr. Delvis Maldonado DO Work Phone: Start: 11-19-2023 Cardiac mri w/wo con trast & further seq Alla Jaquez MD Work Phone: Start: 10-08-2023 Radionuclide imaging of perfusion of myocardium under exercise stress Dr. Delvis Maldonado Work Phone: Start: 07-21-2023 Bacteria identified in Blood by Culture Dr. Delvis Maldonado Work Phone: Start: 07-21-[address] Delvis Maldonado Work Phone: Start: 07-21-2023 Dr. Delvis childress Work Phone: Start: 07-21-[address] Delvis childress Work Phone: Start: 07-21-2023 Fluoroscopic guidance Shelby Maldonado Work Phone: Start: 07-21-2023 CT of abdomen and pe lvis without contrast Dr. Delvis Maldonado Work Phone: Start: 07-07-2023 Plain chest X-ray Dr. Nury Maldonado Work Phone: Start: 07-07-[address] Delvis Maldonado Work Phone: Start: 06-20-2023 Diagnostic radiograp hy of abdomen Dr. Delvis Maldonado Work Phone: Start: 06-14-2023 Ext[address] wave lith[address] Delvis Maldonado Work Phone: Start: 06-12-2023 CT of chest, abdomen and pelvis without contrast Dr. Delvis Maldonado Work Phone: Start: 06-07-2023 CT of abdomen and pe lvis without contrast Dr. Delvis Maldonado Work Phone: Start: 05-25-[address] Delvis Maldonado Work Phone: Start: 05-25-2023 Plain chest X-ray Dr. Nury Maldonado Work Phone: Start: 07-31-2022 Level iv surg pathol ogy gross&microscopic exam Sherry Guadarrama MD Work Phone: Start: 07-31-2022 Sigmoidoscopy flx dx w/collj spec br/wa if pfrmd Sherry Guadarrama MD Work Phone: Start: 12-25-2015 History of placement of stent for coronary artery disease History of coronary artery stent placement Dr. Ruiz Gary MD Comment on above: PCI/EZEKIEL mid LAD and LCx 08/2010; [id number] w/ 3.0 x 12 mm Resolute Stent 12/25/2015 Plan of Treatment Date Care Activity Detail Author Start: 05-27-2025 Radex hand minimum 3 views Dejamor Work Phone: Start: 09-16-2023 Advance Directive Discussion Advance Directive Discussion [facility] Start: 09-16-2023 Depression Assessment Depression Ass essment [facility] Start: 07-24-2023 Patient discharge [facility] Start: 07-23-2023 [facility] Start: 07-23-2023 Consultation [facility] Start: 07-22-2023 Admission procedure [facility] Start: 07-22-2023 Admission procedure [facility] Start: 07-22-2023 Blood chemistry [facility] Start: 07-22-2023 Complete blood count [facility] Start: 07-21-2023 Following clinical pathway protocol [facility] Start: 07-21-2023 Bacteria identified in Blood by Culture Blood Culture [facility] Start: 07-21-2023 Bacteria identified in Urine by Culture Urine Culture [facility] Start: 07-21-2023 Measuring intake and output [facility] Start: 07-21-2023 Patient education [facility] Start: 07-21-2023 Provision of activit y privileges [facility] Start: 07-21-2023 Taking patient vital signs [facility] Start: 07-21-2023 Ureteroscopy Cysto,Ureteros copy,Inse rtion Stent (Not Applicable) [facility] Start: 07-21-2023 Vital signs measurements [facility] Start: 07-21-2023 [facility] Start: 07-21-2023 End: 07-21-2023 Admission procedure [facility] Start: 07-21-2023 Hospital admission, emergency, from emergency room, medical nature [facility] Start: 07-21-2023 Fluoroscopic guidance O.R. Fluoro fo r C-Arm [facility] Start: 07-21-2023 End: 07-21-2023 Blood culture [facility] Start: 07-21-2023 End: 07-22-2023 [facility] Start: 07-07-2023 [facility] Start: 07-07-2023 End: 07-07-2023 [facility] Start: 07-07-2023 Bacteria identified in Urine by Culture Urine Culture [facility] Start: 06-15-2023 Patient discharge [facility] Start: 06-12-2023 End: 06-12-2023 Following clinical pathway protocol [facility] Start: 06-12-2023 Ambulation without limitation [facility] Start: 06-12-2023 Assessment of risk o f venous thromboembolism [facility] Start: 06-12-2023 Consultation [facility] Start: 06-12-2023 Documentation procedure [facility] Start: 06-12-2023 Insertion of cathete r into peripheral vein [facility] Start: 06-12-2023 Measuring intake and output [facility] Start: 06-12-2023 Providing care accor ding to standard [facility] Start: 06-12-2023 [facility] Start: 06-12-2023 Verification routine [facility] Start: 06-12-2023 Admission procedure [facility] Start: 06-12-2023 Consultation [facility] Start: 05-25-2023 [facility] Start: 05-17-2023 Covid-19 Vaccine ( season) Covid-19 Vaccine ( season) [facility] Start: 05-17-2023 Influenza vaccination Influenza Vacc ine (#1) [facility] Start: 09-16-2022 Advance Directive Discussion Advance Directive Discussion [facility] Start: 09-16-2022 Depression Assessment Depression Ass essment [facility] Start: 09-02-2022 Shingrix Vaccine (2 of 2) Maurice grix Vaccine (2 of 2) [facility] Start: 05-17-2022 Influenza vaccination INFLUENZA (#1) [facility] Start: 03-28-2022 COVID-19 VACCINE (5 - Booster for Moderna series) COVID-19 VACCINE (5 - Booster for Moderna series) [facility] Start: 09-16-2021 ADVANCE DIRECTIVE DISCUSSION ADVANCE DIRECTIVE DISCUSSION [facility] Start: 09-16-2021 DEPRESSION ASSESSMENT DEPRESSION ASS ESSMENT [facility] Start: 2006 RSV Vaccine (1 - 1-d ose 60+ series) RSV Vaccine (1 - 1-dose 60+ series) [facility] Start: 1991 COLOGUARD (FIT-DNA) COLOGUARD (FIT-D NA) [facility] Start: 1991 Colonoscopy COLONOSCOPY [facility] Start: 1991 COLORECTAL CANCER SCREENING COLORECTAL CANCER SCREENING [facility] Start: [address] COLONOGRAPHY [facility] Start: 1991 DIABETES SCREEN DIABETES SCREEN [facility] Start: 1991 Diabetes Screening Diabetes Screenin g [facility] Start: 1991 FECAL OCCULT BLOOD FECAL OCCULT BLOO D [facility] Start: 1991 [facility] Start: 1981 LIPID SCREEN LIPID SCREEN [facility] [facility] Start: 1965 SHINGRIX VACCINE (1 of 2) MAURICE GRIX VACCINE (1 of 2) [facility] Start: 1965 Urine microalbumin profile [facility] Start: 1964 HEPATITIS C SCREENING HEPATITIS C [facility] Start: 1964 Hepatitis C screening Hepatitis C [facility] Start: 1952 PNEUMOCOCCAL: 65+ (1 - PCV) PNEUMOCOCCAL: 65+ (1 - PCV) [facility] Anion gap measurement [facility] BUN/Creatinine ratio [facility] Calcium [Mass/volume ] in Serum or Plasma [facility] Calculus analysis [facility] Calculus analysis [facility] Carbon dioxide, tota l [Moles/volume] in Serum or Plasma [facility] Chloride [Moles/volu me] in Serum or Plasma [facility] Creatinine [Moles/vo lume] in Serum or Plasma [facility] Glucose [Mass/volume ] in Serum or Plasma [facility] Hematocrit [Volume Fraction] of Blood [facility] Hemoglobin [Mass/vol ume] in Blood [facility] Leukocytes [#/volume ] in Blood [facility] Mean corpuscular hemoglobin concentration determination [facility] Mean corpuscular hemoglobin determination [facility] Measurement of renal function [facility] Measurement of weigh t of calculus [facility] Measurement of weigh t of [facility] Origin of [facility] Origin of [facility] Patient Education [facility] Work Phone: Patient referral [facility] Work Phone: Platelets [#/volume] in Blood [facility] Potassium [Moles/vol ume] in Serum or Plasma [facility] Radionuclide imaging of perfusion of myocardium under exercise stress [facility] Red blood cell count [facility] Red cell distributio n width determination [facility] End: 06-20-2023 SIGMOIDOSCOPY SIGMOIDOSCOPY Endoscopy Routine Anal fissure 1 Occurrences starting 06/20/2022 until 06/20/2023 [facility] Work Phone: Comment on above: 1 Occurrences starti ng 06/20/2022 until 06/20/2023 Sodium [Moles/volume ] in Serum or Plasma [facility] Specimen color determination [facility] Specimen color determination [facility] Urea nitrogen [Mass/volume] in Serum or Plasma [facility] Immunizations Immunization Date Immunization Notes Care Provider Kg adams 06-13-2023 Influenza High-Dose Quadrivalent Dr. Delvis Maldonado Work Phone: [facility] 09-13-[address] Delvis Maldonado Work Phone: [facility] 07-12-2022 Pneumococcal Vaccine PCV20 (Prevnar 20) Dr. Delvis Maldonado Work Phone: [facility] 07-08-2022 influenza, injectabl e, quadrivalent, preservative free Dr. Delvis Maldonado Work Phone: [facility] 07-08-[address] Delvis Maldonado Work Phone: [facility] 07-08-2022 influenza virus vaccine, unspecified formulation Sherry Guadarrama MD Work Phone: [facility] 07-04-2022 Covid Pfizer Bivalen t Booster Dr. Delvis Maldonado Work Phone: [facility] 01-31-2022 Covid (Moderna) Dr. Delvis sam Work Phone: [facility] 07-20-2021 Covid (Moderna) Dr. Delvis sam Work Phone: [facility] 05-14-2021 influenza, injectabl e, quadrivalent, preservative free Dr. Delvis Maldonado Work Phone: [facility] 10-18-2020 Covid (Moderna) Dr. Delvis sam Work Phone: [facility] 09-20-2020 Covid (Moderna) Dr. Delvis sam Work Phone: [facility] 08-17-2020 influenza, injectabl e, quadrivalent, preservative free Dr. Delvis Maldonado Work Phone: [facility] 06-24-2019 Influenza, injectabl e, Madin Irwin Canine Kidney, preservative free, quadrivalent Dr. Delvis Maldonado Work Phone: [facility] 05-18-2018 Seasonal trivalent influenza vaccine, adjuvanted, preservative free Dr. Delvis Maldonado Work Phone: [facility] 05-30-2017 Seasonal trivalent influenza vaccine, adjuvanted, preservative free Dr. Delvis Maldonado Work Phone: [facility] Payers Date Payer Category Payer [employer] others) [id number] 2024 Self-pay [id number] 2021 [employer] ( [employer] others) [id number] 2021 Unknown FOR LIFE [id number] 2021-Present [phone] [address] [place] [address] Indemnity [id number] 2011 Medicare [id number] 2011 Medicare MEDICARE MEDICAR E A AND B [id number] 2011-Present [phone] [address] [address] [place] [address] Medicare [id number] Unknown [id number] Unknown [id number] Unknown [id number] Unknown [id number] Unknown [id number] Unknown [id number] Unknown [id number] Unknown [id number] Unknown [id number] Social History Date Type Detail Facility Start: 11-23-2021 End: 09-18-2023 Tobacco smoking status RUST Unknown if ever smoked [facility] Start: 09-23-2020 Non-smoker [facility] Start: 1945 Sex Assigned At Male [facility] Start: 06-14-2022 End: 09-30-2024 Tobacco smoking status CAIS Ex-smoker [facility] End: 09-16-1981 History of tobacco use Current smoker [facility] End: 09-16-1981 History of tobacco use Cigarette Smoker [facility] Start: 06-14-2022 End: 06-20-2022 Tobacco use and exposure Smokeless tobacco non-user [facility] Start: 06-14-2022 End: 06-20-2022 Alcohol intake Current drinker of alcohol (finding) [facility] Start: 06-14-2022 History SDOH Alcohol Comment social [facility] Start: 1945 Sex Assigned At Not on file [facility] Start: 06-04-2022 End: 07-31-2022 Exposure to SARS-CoV-2 (event) Not sure [facility] Start: 06-20-2022 End: 2022 Cigarettes smoked current (pack per day) - Reported 0.5 [facility] Start: 06-20-2022 History SDOH Alcohol Comment 1 glass of wine weekly if that [facility] Start: 06-20-2022 End: 05-27-2025 Tobacco use panel [facility] National Score (1-10 0), lower number is lower risk 34 [facility] Start: 05-27-2025 Tobacco smoking status Never s moked any substance (finding) [facility] Work Phone: Medical Equipment Procedure Code Equipment Code Equipment Origin al Text Equipment Identifier Dates Lithotripsy, [id number] ([id number]) [id number] FDA Start: 06-14-2023 Cystoureteroscopy, with stent [...] Facility 07-24-2023 Functional status Ambulates;Up ad amina [facility] Work Phone: 06-15-2023 Functional status Independent [facility] Work Phone: 06-14-2023 Functional status Ambulates;Up ad amina [facility] Work Phone: Mental Status Date Assessment Result Facility 05-27-2025 Cognitive Function [facility] Work Phone: 07-24-2023 Cognitive function Voice/Name [facility] Work Phone: 06-15-2023 Cognitive function Voice/Name [facility] Work Phone: 06-07-2023 Cognitive function Awake;Alert;Appropriat e [facility] Work Phone: 05-25-2023 Cognitive function Voice/Name [facility] Work Phone: Clinical Notes 12-25-2015 to 05-11-2025 Note Date & Type Note Facility 05-11-2025 Evaluation note Diagnosis Onset Date Resolution Pericardial effusion acute Augu st 2024 9:05am Essential (primary) hypertension chronic May 11, 2025 9:05am History of coronary artery stent placement December 25, 2015 chronic May 11, 2025 9:05am Hyperlipidemia chronic April 9:05am [facility] Work Phone: 1(755) 830-945003-05-2024 History of Present illness Narrative* Gokul Kuo, RT(R) - 11/19/2023 8:15 AM EST Radiology Service Progress Note DATE OF SERVICE: [...] PATIENT PRESENTS WITH AN IMPLANTABLE OR ATTACHED FREIGHT ADJUSTER: No ALLERGIES: Reviewed and unchanged CONTRAST ALLERGY: NO. EXAM: MRI - CONTRAST TYPE: GROUP II PERIPHERAL IV DATA: Ambulatory: A peripheral IV was started in the Right antecubital site with a Angio cath: 22 gauge. RADIOLOGY DEPARTMENT: MR; Exam(s) Completed: Cardiac: Cardiac SIGNATURE: RT Chet(R) PATIENT NAME: John Arriola DATE: November 19, 2023 TIME: 8:42 AM [facility] Miscellaneous Notes* Telephone Encounter - Gokul Kuo RT(R) - 10/29/2023 9:03 AM EST Chayo Rod protocol this Cardiac MRI scheduled in [place] on 11/19/2023. Gokul Chavez MRI [facility] Discharge summary Author Erickson Bonilla [facility] September 11, 2023 9:44am Note Date/Time September 11, 2023 9:44am [facility] Physical Therapy Health[address] [place] [address] / REHABILITATION SERVICES DISCHARGE SUMMARY MR#: [id number] Acct: [id number] Name: JOHN ARRIOLA Rep #: [id number] : 1945 77 From: Erickson Bonilla PT, ATC Referring DrHarjeet: Dr. 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 Goal Progress: Goal Met Goal 4:: Pt. [...] please feel free to call me at [phone]. Thank you for the referral of thispatient. Sincerely, Erickson Bonilla, PT, ATC Balance/Gait/Functional tests Balance/Special Test Scores Oswestry Neck Score: 2 Improvement % Improvement: 100 <Electronically signed by Erickson Bonilla PT, ATC> 09/11/23 0944 CC: Dr. Sun Lopez MD; Dr. Delvis Maldonado DO ~ [facility] Signed [facility] Work Phone: [phone] 249-202411-08-2023 Discharge summary Author Joseph Mora [facility] July 24, 2023 7:47am Note Date/Time July 24, 2023 7 :47am [facility] Medical Records Department [address] [place] [address] Discharge Summary 07/24/23 0745 MR#: [id number] Acct: [id number] Name: JOHN ARRIOLA Rep #:[id number] : 1945 77 From: Joseph Mora MD PCP: Dr. Delvis Maldonado DO Status:ADM IN Location: [place] [address] Providers Date of Admission: 07/21/23 Date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 07/21/23 [...] right ureter and place a right stent [facility] Medical History DEENA (acute kidney injury) Arthritis Atherosclerosis of [place] coronary artery of [place] heart without angina pectoris BPH (benign prostatic [...] Clarity Cloudy, Urine pH 6.5, Ur Specific [place] 1.015, Urine Protein 100 H, Urine Glucose [...] Mora MD; Dr. Delvis Maldonado, DO~ Signed [facility] Work Phone: Hospital Discharge instructions Additional Instructions Please follow-up. Please return for any worsening symptoms. Your creatinine and GFR are improving.[facility] Work Phone: Hospital Discharge instructions Additional Instructions [facility]: [facility]: Reason for referral (narrative)* Outpatient Procedure (Routine) - Authorized Specialty Diagnoses / Procedures Referred By Contac t Referred To Contact [facility] Diagnoses Anal fissure Procedures SIGMOIDOSCOPY SIGMOIDOSCOPY FLX DX W/COLLJ SPEC BR/[place] [address] [place] [address] [facility] [address] [place] [address] Referral ID Status Reason Start Date Expiration Date Visits Requested Visits Authorized [id number] Authorized Auto-Generat ed Referral 06/20/2022 06/20/2023 1 1 [facility])No reason for referral information availableWBellevue Hospital Work Phone: Reason for visit Narrative* Outpatient Procedure (Routine) - Closed Specialty Diagnoses / Procedures Referred By Contac t Referred To Contact [facility] Diagnoses Anal fissure Procedures SIGMOIDOSCOPY SIGMOIDOSCOPY FLX DX W/COLLJ SPEC BR/[place] [address] [address] [place] [address] [facility] [address] [place] [address] Referral ID Status Reason Start Date Expiration Date V isits Requested Visits Authorized [id number] Closed Auto-Generate d Referral 06/20/2022 06/20/2023 1 1 [facility] Chief Complaint and Reason for Visit [...] coronary artery stent placement Hyperlipidemia Chief Complaint Admit Date 1 y fu May 11, 2025 9: 05am Reason for Visit Admit Date Pericardial effusion May 11, 2025 9 :05am Essential (primary) hypertension May 11, 2025 9:05am History of coronary artery stent placeme nt May 11, 2025 9:05am Hyperlipidemia May 11, 2025 9: 05am Family History Relationship Condition Age at Onset Recorded Date/T bella mother Coronary artery disease Unknown History of coronary artery bypass surgery Unknown father Coronary artery disease Unknown brother Coronary artery disease Unknown Myocardial infarction Unknown Diabetes mellitus Unknown Family Member Condition Full Brother Alive Full Sister Alive Father High blood pressure Father Osteoporosis Father Heart disease Father Arthritis Father Mother Kidney disease Mother Heart disease Mother Arthritis Mother Advance Directives Advance Directive Response Recorded Date/ Time Advance Directives Yes December 28 020 8:32am Living Will Yes September 23 3:05pm Power of Contact Centre Supervisor Yes September 23 021 3:05pm Advance Directive Response Recorded Date/ Time Advance Directives Yes December 28 020 7:32am Living Will Yes September 23 2:05pm Power of Contact Centre Supervisor Yes September 23 021 2:05pm Advance Directive Response Recorded Date/ Time Name of Medical Power of Contact Centre Supervisor June 07, 2023 4:03pm Name of Medical Power of Contact Centre Supervisor June 12, 2023 8:13pm Advance Directives Yes December 28 020 8:32am Living Will Yes June 12, 2023 8:13pm Power of Contact Centre Supervisor Yes May 8:13pm Advance Directive Response Recorded Date/ Time Name of Medical Power of Contact Centre Supervisor June 07, 2023 4:03pm Name of Medical Power of Contact Centre Supervisor June 12, 2023 8:13pm Name of Medical Power of Contact Centre Supervisor Mariah Arriola , July 07, 2023 2:57pm Advance Directives Yes December 28, 020 8:32am Living Will Yes July 07 2:57pm Power of Contact Centre Supervisor Yes July 07, 2023 2:57pm Advance Directive Response Recorded Date/ Time Name of Medical Power of Contact Centre Supervisor June 07, 2023 3:03pm Name of Medical Power of Contact Centre Supervisor June 12, 2023 7:13pm Name of Medical Power of Contact Centre Supervisor Mariah Arriola , July 07, 2023 1:57pm Name of Medical Power of Contact Centre Supervisor MARIAH ARRIOLA - SPOUSE July 21, 2023 10:24am Advance Directives Yes December 28, 020 7:32am Living Will Yes July 21 10:24am Power of Contact Centre Supervisor Yes July 21, 2023 10:24am Advance Directive Response Recorded Date/ Time Name of Medical Power of Contact Centre Supervisor June 07, 2023 3:03pm Name of Medical Power of Contact Centre Supervisor June 12, 2023 7:13pm Name of Medical Power of Contact Centre Supervisor Mariah Arriola , July 07, 2023 1:57pm Name of Medical Power of Contact Centre Supervisor Mariah Arriola July 21, 2023 4:24pm Advance Directives Yes December 28, 020 7:32am Living Will Yes July 21 4:24pm Power of Contact Centre Supervisor Yes July 21, 2023 4:24pm Advance Directive Response Recorded Date/ Time Name of Medical Power of Contact Centre Supervisor June 12, 2023 7:13pm Name of Medical Power of Contact Centre Supervisor Mariah Arriola , July 07, 2023 1:57pm Name of Medical Power of Contact Centre Supervisor Mariah Arriola July 21, 2023 4:24pm Advance Directives Yes December 28, 020 7:32am Living Will Yes July 21 4:24pm Power of Contact Centre Supervisor Yes July 21, 2023 4:24pm Advance Directive Response Recorded Date/ Time Advance Directives Yes December 28 020 8:32am Living Will Yes July 21 5:24pm Power of Contact Centre Supervisor Yes July 21, 2023 5:24pm Advance Directive Response Recorded Date/ Time Advance Directives Yes December 28, 020 8:32am Advance Directive Response Recorded Date/ Time Living Will Yes July 21 5:24pm Do you have a Healthcare Power of Contact Centre Supervisor? Yes July 21, 2023 5:24pm Advance Directives Yes December 28 8:32am Summary Purpose Additional Source Comments Goals (unrecognized [...] may be documented in an alternate section No Information Available Source Comments (unrecognize d section and content) In the event this informatio n is protected by the Federal Confidentiality of Alcohol and Drug Abuse Patient Records regulations: The Federal rules restrict any use of the information to criminally investigate or prosecute any alcohol or drug abuse patient.[facility] Hospital[facility] the event this information is protected by the Federal Confidentiality of Alcohol and Drug Abuse Patient Records regulations: The Federal rules restrict any use of the information to criminally investigate or prosecute any alcohol or drug abuse patient.[facility] HospitalIn the event this information is protected by the Federal Confidentiality of Alcohol and Drug Abuse Patient Records regulations: The Federal rules restrict any use of the information to criminally investigate or prosecute any alcohol or drug abuse patient.[facility] HospitalIn the event this information is protected by the Federal Confidentiality of Alcohol and Drug Abuse Patient Records regulations: The Federal rules restrict any use of the information to criminally investigate or prosecute any alcohol or drug abuse patient.[facility] HospitalIn the event this information is protected by the Federal Confidentiality of Alcohol and Drug Abuse Patient Records regulations: The Federal rules restrict any use of the information to criminally investigate or prosecute any alcohol or drug abuse patient.[facility] Reason for Visit (unrecogniz ed section and content) bilateral hand pain, New - 1 st visit with practice Reason Comments Consult hemorrhoids Reason Comments New Patient Mass Reason Comments Other Please protocol this Cardiac MRI Care Teams (unrecognized sec tion and content) 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 Delvis Maldonado DO Family Provider Active Dr. Delvis Maldonado DO Primary Care Provider Active Team Status: Inactive Member Role Status Dates Dr. 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 Delvis Maldonado DO Primary Care Provider Active Nika Garzon COLLAR BAND CREASER, COLLAR BAND CREASER-C Referring Provider, Other Provi seth Active Dr. Ruiz Gary MD Attending Provider Active Team Status: Active Member Role Status Dates Dr. Delvis Maldonado DO Primary Care Provider Active Nika Garzon COLLAR BAND CREASER, COLLAR BAND CREASER-C Attending Provider Active Team Status: Inactive Member Role Status Dates Dr. Delvis Maldonado DO Primary Care Provider Active Nkia Garzon COLLAR BAND CREASER, COLLAR BAND CREASER-C Attending Provider, Referring P rovider Active Electrolysis Needle Operator Relationship Specialty Start Date End Date Delvis Maldonado DO [address] [place], [place] [address] PCP - General Family Medicine 06/07/22 Electrolysis Needle Operator Relationship Specialty Start Date End Date Delvis Maldonado DO [address] [place], [place] [id number] PCP - General Family Medicine 06/07/22 Team Status: Inactive Member Role Status Dates Dr. Delvis Maldonado DO Primary Care Provider Active Dr. Monisha Yoon DO Attending Provider, Referring P rovider Active Team Status: Active Member Role/Relationship Status Dates Dr. Delvis Maldonado DO Primary Care Provider Active Team Status: Inactive Member Role/Relationship Status Dates Dr. Delvis Maldonado DO Primary Care Provider Active Start: January 12, 2025 End: January 12, 2025 Dr. Frida Barber MD Attending Provider Active Start: January 12, 2025 End: January 12, 2025 Dr. Frida Barber MD Referring Provider Active Start: January 12, 2025 End: January 12, 2025 Team Status: Inactive Member Role/Relationship Status Dates Dr. Delvis Maldonado DO Primary Care Provider Active Start: May 03, 2025 End: May 03, 2025 Dr. Monisha Yoon DO Attending Provider Active Start: May 03, 2025 End: May 03, 2025 Dr. Monisha Yoon DO Referring Provider Active Start: May 03, 2025 End: May 03, 2025 Team Status: Inactive Member Role/Relationship Status Dates Dr. Delvis Maldonado DO Primary Care Provider Active Start: May 11, 2025 End: May 11, 2025 Dr. Delvis Maldonado DO Referring Provider Active Start: May 11, 2025 End: May 11, 2025 Dr. Ruiz Gary MD Attending Provider Active S tart: May 11, 2025 End: May 11, 2025 Team Status: Inactive Member Role/Relationship Status Dates Dr. Delvis Maldonado DO Primary Care Provider Active Start: May 03, 2025 End: May 03, 2025 Dr. Monisha Yoon DO Attending Provider Active Start: May 03, 2025 End: May 03, 2025 Dr. Monisha Yoon DO Referring Provider Active Start: May 03, 2025 End: May 03, 2025 Team Status: Inactive Member Role/Relationship Status Dates Dr. Delvis Maldonado DO Primary Care Provider Active Start: May 11, 2025 End: May 11, 2025 Dr. Delvis Maldonado DO Referring Provider Active Start: May 11, 2025 End: May 11, 2025 Dr. Ruiz Gary MD Attending Provider Active S tart: May 11, 2025 End: May 11, 2025 Team Status: Inactive Member Role/Relationship Status Dates Dr. Delvis Maldonado DO Primary Care Provider Active Start: May 11, 2025 End: May 11, 2025 Dr. Joseph Mora MD Attending Provider Active Start: May 11, 2025 End: May 11, 2025 Dr. Joseph Mora MD Referring Provider Active Start: May 11, 2025 End: May 11, 2025 (unrecognized sect ion and content) No Status Records FoundNo Status Records FoundNo Status Records FoundNo Status Records Found INFORMATION SOURCE (unrecogn ized section and content) DATE CREATED AUTHOR 06/21/2022 [facility] DATE CREATED AUTHOR AUTHOR'S ORGANIZ ATION 08/03/2022 [facility] DATE CREATED AUTHOR AUTHOR'S ORGANIZ ATION 10/30/2023 [facility] DATE CREATED AUTHOR AUTHOR'S ORGANIZ ATION 05/23/2025 [facility] FOR RECORDS PERTAINING TO PATIENTS WHO [...] BE BASED ON THE PRIMARY CLINICAL RECORDS. [facility]. provides no warranty or guarantee of the accuracy or completeness of information in this document.
[2025-07-02 07:01] LABS: Hematocrit 47.9 % (40-54); Hemoglobin 15.5 g/dL (13.0-16.5); Immature Granulocytes Count 0.030 X10^3/uL (0.0-0.0); Mean Corp Hgb Conc 32.4 g/dL (32-36); Mean Corpuscular Volume 93.0 fL (80-94); Mean Platelet Vol. 10.4 fl (6.2-12.0); NRBC Flagged by Analyzer 0 % (0-5); Platelet Count 155 K/mm3 (150-450); RBC Distribution Width CV 13.2 % (11.6-14.6); RBC Distribution Width SD 45.1 fl (35.1-43.9); Red Blood Count 5.15 M/mm3 (4.6-6.2); White Blood Count 5.3 K/mm3 (4.4-11.0)
[2025-07-02 07:46] LABS: AST(SGOT) 20 U/L (<=37); Alanine Aminotransfer ALT/SGPT 15 U/L (<=46); Albumin, Serum 4.2 g/dL (3.4-4.8); Alkaline Phosphatase 70 U/L (40-129); Anion Gap 9 (5-15); BUN 30 mg/dL (4-19); BUN/Creat Ratio 11.4 RATIO (10-20); Calcium,Total 9.0 mg/dL (7.6-11.0); Carbon Dioxide 24.9 mmol/L (21.0-32.0); Chloride 105 mmol/L (98-108); Globulin 2.7 g/dL (2.2-4.2); Glucose 98 mg/dL (70-99); Potassium 4.4 mmol/L (3.3-5.1)
== END | disposition home or self-care (01) ==
LOC: LAB 06:29
PROVIDERS: PCP Family Medicine; Referring Provider Internal Medicine Rheumatology; Visit Provider Internal Medicine Rheumatology
DX: M06.4 Inflammatory polyarthropathy (principal); Z79.899 Other long term (current) drug therapy; M16.0 Bilateral primary osteoarthritis of hip; M15.9 Polyosteoarthritis, unspecified
CPT/HCPCS: 36415; 80053; 85025